=== PATIENT | female | born 1945 | race Caucasian/White ===

== ENCOUNTER 2022-05-31 13:28 | Inpatient (IN) | payer MEDICARE, SELFPAY ==
[2022-05-31] VITALS (32 sets, daily range): BP systolic 107–152; BP diastolic 69–107; PULSE 88–116; RESP 16–18; TEMP 36.5–37.1; O2SAT 94–98; BMI 19.5
--- NOTE | 2022-05-31 14:09 | ED_ITS ---
HPI - Weakness General Chief complaint: Weakness Stated complaint: Weak Diarrhea Time Seen by Provider: 05/31/22 13:55 History of Present Illness HPI Narrative: 76-year-old woman presenting to the emergency department with her son with whom she lives with complaint of increasing weakness. ?I just feel awful?. Has had some head cold symptoms than some cough and ultimately diarrhea 2 nights ago which admittedly has lessened today. She continues to have nausea. They tried Robitussin with the cough. She is keeping electrolyte drinks and water. Just can not eat anything solid and for that reason feels his increasingly weak. Not exactly short of breath. No fever measured. Abdominal pain other than and cramping in anticipation of a bowel movement. No recent antibiotics. Later does report a history hypokalemia when queried. Apparently had been on supplementation in the past and ended up hyperkalemic. Related Data Home Medications Medication Instructions Recorded Confirmed ferrous sulfate 142 mg (45 mg 142 mg PO Q48H 05/31/22 05/31/22 iron) tablet,extended release (Slow Fe) gabapentin 400 mg capsule See Rx Instructions .Route 05/31/22 05/31/22 .COMPLEX PRN restless leg(s) omeprazole 20 mg capsule,delayed 20 mg PO DAILY 05/31/22 05/31/22 release sertraline 100 mg tablet 100 mg PO DAILY 05/31/22 05/31/22 tramadol 50 mg tablet 50 mg PO Q8H 05/31/22 05/31/22 Allergies Allergy/AdvReac Type Severity Reaction Status Date / Time No Known Drug Allergies Allergy Verified 05/31/22 13:48 Review of Systems Status of ROS: Reports: 10 or more systems reviewed and unremarkable except as noted in History and below [facility] Medical History (Updated 06/01/22 @ 10:20 by Rafael Crouch MD) Chronic back pain Controlled substance agreement signed Gastric ulcer Generalized anxiety disorder Iron deficiency anemia Nephrolithiasis Restless leg syndrome Surgical History (Updated 05/31/22 @ 21:41 by Chio Joseph MD) S/P [id number] Family History (Updated 05/31/22 @ 21:45 by Chio Joseph MD) Mother Cataract Osteoarthritis PUD (peptic ulcer disease) Brother No problems noted. Brother High cholesterol High blood pressure Retinal detachment Sister AAA (abdominal aortic aneurysm) Renal failure Family/Other Myocardial infarction Social History (Updated 05/31/22 @ 22:37 by Chio Joseph MD) Narrative: Quit smoking 1 year ago. Smoked 1/2-1ppd. Denies alcohol or recreational drugs. FULL CODE. Smoking Status: Former smoker Nicotine containing products detail: quit 1 year ago 2020 Second hand tobacco smoke exposure: No How often do you have a drink containing alcohol: never AUDIT-C Alcohol total score: 0 Non-prescribed substance use: denies use Caffeine: No Exam Narrative: Exam Narrative: Pleasant. A little hard of hearing. Thin. Partially edentulous. Oropharynx is moist. Does have a nicotine gum in place. Lungs actually are clear. Cardiovascular is elevated rate regular rhythm. Distant. Abdomen is soft normoactive bowel sounds and nontender no masses appreciated. No lower extremity edema. Skin with good turgor. No rash is noted. Well-perfused peripherally. Moving extremities without difficulty. Const: Vital Signs, click to edit/add: Vital Signs - 24 hr 05/31/22 15:44 05/31/22 15:45 05/31/22 16:00 Pulse Rate 91 92 88 Respiratory Rate Blood Pressure Pulse Oximetry 95 96 97 Oxygen Delivery Me thod 05/31/22 16:01 05/31/22 16:02 05/31/22 16:15 Pulse Rate 88 91 96 Respiratory Rate Blood Pressure 144/85 H Pulse Oximetry 97 96 97 Oxygen Delivery Me thod 05/31/22 16:30 05/31/22 16:31 05/31/22 16:46 Pulse Rate 96 96 102 H Respiratory Rate Blood Pressure 148/96 H 152/107 H Pulse Oximetry 98 98 95 Oxygen Delivery Me thod 05/31/22 16:47 05/31/22 17:00 05/31/22 17:01 Pulse Rate 98 107 H 103 H Respiratory Rate Blood Pressure 148/95 H Pulse Oximetry 96 97 97 Oxygen Delivery Me thod 05/31/22 17:15 05/31/22 17:30 05/31/22 17:31 Pulse Rate 98 96 98 Respiratory Rate Blood Pressure 118/78 Pulse Oximetry 96 98 97 Oxygen Delivery Me thod 05/31/22 17:45 05/31/22 18:03 05/31/22 18:04 Pulse Rate 103 H 97 106 H Respiratory Rate Blood Pressure 143/94 H Pulse Oximetry 97 96 96 Oxygen Delivery Me thod 05/31/22 18:15 05/31/22 18:30 05/31/22 18:31 Pulse Rate 110 H 115 H 108 H Respiratory Rate Blood Pressure 107/69 Pulse Oximetry 96 96 96 Oxygen Delivery Me thod 05/31/22 18:45 05/31/22 19:00 05/31/22 19:01 Pulse Rate 116 H 106 H 103 H Respiratory Rate Blood Pressure 131/84 Pulse Oximetry 95 96 96 Oxygen Delivery Me thod 05/31/22 19:15 05/31/22 19:30 05/31/22 19:31 Pulse Rate 115 H 98 97 Respiratory Rate Blood Pressure 137/87 Pulse Oximetry 94 96 95 Oxygen Delivery Me thod 05/31/22 20:19 05/31/22 20:30 Pulse Rate Respiratory Rate 18 Blood Pressure Pulse Oximetry 98 98 Oxygen Delivery Me thod Room Air Room Air Documenting provider has reviewed patient's vital signs: yes Course Vital Signs Vital signs: Initial Vital Signs Temperature 97.7 F 05/31/22 13:42 Temperature Source Temporal Artery Scan 05/31/22 13:42 Pulse Rate 116 H 05/31/22 13:42 Pulse Rhythm 05/31/22 13:42 Respiratory Rate 16 05/31/22 13:42 Blood Pressure 114/70 05/31/22 13:42 Blood Pressure Mean 84 05/31/22 13:42 Blood Pressure Position Sitting 05/31/22 13:42 Pulse Oximetry 96 05/31/22 13:42 Oxygen Delivery Method 05/31/22 13:42 Vital Signs Temperature 97.7 F 05/31/22 13:42 Pulse Rate 116 H 05/31/22 13:42 Respiratory Rate 16 05/31/22 13:42 Blood Pressure 114/70 05/31/22 13:42 Pulse Oximetry 96 05/31/22 13:42 Oxygen Delivery Method 05/31/22 13:42 Temperature 98.0 F 06/01/22 11:00 Pulse Rate 70 06/01/22 11:00 Respiratory Rate 20 06/01/22 11:00 Blood Pressure 125/78 06/01/22 11:00 Pulse Oximetry 95 06/01/22 11:00 Oxygen Delivery Method 06/01/22 11:00 MDM - Weakness MDM Narrative Medical decision making narrative: Will place IV. Normal saline. Labs pending particular interest would be Covid and influenza given community prevalence. Alejandrafran. Was feeling a little bit better. Has had runs of tachycardia looks up into the 160s. By my read prior EKG showing normal sinus at 90. This is when sat up to take oral potassium as potassium was 2.9. Still reporting feeling generally unwell. Magnesium at 1.9. There are runs now of tachycardia that a captured on EKG looks to show by my read a sinus tachycardia in 2 EKGs 1-teens to 150s. These are transient and resolve spontaneously. COVID positive. Replaced potassium orally. Able to hold this down. Given 2 g magnesium IV as well in light of SVT. Inquired about vaccinations status for COVID and influenza. Son and patient noted that people are dying of COVID vaccines; that vaccinated people are the ones who are dying. Has had a couple episodes of diarrhea here in the emergency department. Oxygenation maintained mid to upper 90s. Did report feeling little bit better but when queried regarding departing home was quite reluctant concerned anxious preferring to stay here. Does have family help in the form of her son. We discussed this at a number of times and still wants to stay here. Hospitalist is accepting. Lab Data Attestation: I reviewed the patient's lab results. Labs: Lab Results 05/31/22 05/31/22 05/31/22 Range/Units 13:58 14:55 14:55 WBC 9.20 (4.50-11.00) K/uL RBC 4.50 (4.00-5.20) m/uL Hgb 12.7 (12.0-16.0) gm/dL Hct 39.8 (33.0-51.0) % MCV 88 (80-100) fL MCH 28 (26-34) pg MCHC 32 (32-36) gm/dL RDW Coeff of William 13.4 (11.5-15.5) % Plt Count 268 (140-440) K/uL Neut % (Auto) 78.8 H (42.0-72.0) % Lymph % (Auto) 12.7 L (20-44) % [place] % (Auto) 7.3 (0.0-11.0) % Eos % (Auto) 0.1 (0.0-7.0) % Baso % (Auto) 0.2 (0.0-3.0) % Neut # (Auto) 7.20 H (1.7-7.0) K/uL Lymph # (Auto) 1.20 (0.90-2.90) K/uL [place] # (Auto) 0.70 (0.00-0.90) K/UL Eos # (Auto) 0.01 (0.00-0.50) K/uL Baso # (Auto) 0.02 (0.00-0.30) K/uL Abs Immat Gran (auto) 0.08 (0.00-0.30) K/uL Imm/Tot Granulo (auto) 0.9 % Sodium 141 (135-149) mmol/L Potassium 2.9 L* (3.6-5.1) mmol/L Chloride 109 (96-114) mmol/L Carbon Dioxide 21 (20-32) mmol/L BUN 13 (7-30) mg/dL Creatinine 0.9 (0.5-1.5) mg/dL Estimated Creat Clear 38.29 Estimated GFR 67 ml/min Glucose 110 (60-115) mg/dL Calcium 9.4 (8.4-10.6) mg/dL Magnesium (1.5-2.6) mg/dL Total Bilirubin 0.4 (0.1-1.5) mg/dL Direct Bilirubin 0.3 (0.0-0.5) mg/dL AST 152 H (12-35) U/L ALT 46 H (4-35) U/L Alkaline Phosphatase 132 (40-150) U/L C-Reactive Protein 4.7 H (0.5-1.0) mg/dL NT-Pro-B Natriuret Pep 1010 H (0-450) PG/mL Total Protein 7.3 (6.0-8.3) g/dL Albumin 4.2 (3.3-5.0) g/dL Urine Color (Yellow) Urine Appearance (Clear) Urine pH (5.0-8.5) Ur Specific [place] (1.000-1.030) Urine Protein (Negative) Urine Glucose (UA) (Negative) Urine Ketones (Negative) Urine Blood (Negative) Urine Nitrite (Negative) Urine Bilirubin (Negative) Urine Urobilinogen (0.2-1.0) Ur Leukocyte Esterase (Negative) Urine RBC (0-2) Urine WBC (0-5) Ur Squamous Epith Cells (None-Few) Urine Bacteria (None) SARS-CoV-2 (PCR) POSITIVE SARS-CoV-2 A (Negative) Influenza Type A (PCR) Negative PCR FLU A (Negative) Influenza Type B (PCR) Negative PCR FLU B (Negative) RSV (PCR) Negative PCR RSV (Negative) 05/31/22 05/31/22 Range/Units 14:55 15:54 WBC (4.50-11.00) K/uL RBC (4.00-5.20) m/uL Hgb (12.0-16.0) gm/dL Hct (33.0-51.0) % MCV (80-100) fL MCH (26-34) pg MCHC (32-36) gm/dL RDW Coeff of William (11.5-15.5) % Plt Count (140-440) K/uL Neut % (Auto) (42.0-72.0) % Lymph % (Auto) (20-44) % [place] % (Auto) (0.0-11.0) % Eos % (Auto) (0.0-7.0) % Baso % (Auto) (0.0-3.0) % Neut # (Auto) (1.7-7.0) K/uL Lymph # (Auto) (0.90-2.90) K/uL [place] # (Auto) (0.00-0.90) K/UL Eos # (Auto) (0.00-0.50) K/uL Baso # (Auto) (0.00-0.30) K/uL Abs Immat Gran (auto) (0.00-0.30) K/uL Imm/Tot Granulo (auto) % Sodium (135-149) mmol/L Potassium (3.6-5.1) mmol/L Chloride (96-114) mmol/L Carbon Dioxide (20-32) mmol/L BUN (7-30) mg/dL Creatinine (0.5-1.5) mg/dL Estimated Creat Clear Estimated GFR ml/min Glucose (60-115) mg/dL Calcium (8.4-10.6) mg/dL Magnesium 1.9 (1.5-2.6) mg/dL Total Bilirubin (0.1-1.5) mg/dL Direct Bilirubin (0.0-0.5) mg/dL AST (12-35) U/L ALT (4-35) U/L Alkaline Phosphatase (40-150) U/L C-Reactive Protein (0.5-1.0) mg/dL NT-Pro-B Natriuret Pep (0-450) PG/mL Total Protein (6.0-8.3) g/dL Albumin (3.3-5.0) g/dL Urine Color Yellow (Yellow) Urine Appearance Clear (Clear) Urine pH 5.5 (5.0-8.5) Ur Specific [place] 1.010 (1.000-1.030) Urine Protein Negative (Negative) Urine Glucose (UA) Negative (Negative) Urine Ketones Negative (Negative) Urine Blood 2+ A (Negative) Urine Nitrite Positive A (Negative) Urine Bilirubin Negative (Negative) Urine Urobilinogen 0.2 (0.2-1.0) Ur Leukocyte Esterase Negative (Negative) Urine RBC 0-2 (0-2) Urine WBC 0-2 (0-5) Ur Squamous Epith Cells None (None-Few) Urine Bacteria Moderate A (None) SARS-CoV-2 (PCR) (Negative) Influenza Type A (PCR) (Negative) Influenza Type B (PCR) (Negative) RSV (PCR) (Negative) Discharge Plan Discharge Clinical Impression: COVID-19, Weakness, Acute hypokalemia Patient Disposition: Admitted As Inpatient
--- OUTSIDE RECORDS SUMMARY | 2022-05-31 14:41 | XMS_ITS | Clinical Summary ---
:1945 [facility] Address [address] [place] [address] Care Team Providers Name Role Phone Shiraz Simeon PA-C Primary Care Provider Source Comments You are receiving this document as you are listed as the primary care provider,follow-up provider, or the patient has been referred to you for consultation.This is in compliance with the Medicare and Medicaid EHR Incentive Program,which states Providers who transition their patient to another setting of careor provider of care or refers their patient to another provider of care shouldprovide summarycare record for each transition of care or referral. [place]ste[place] Allergies Active Allergy Reactions Severity Noted Date Comments Ferrous Sulfate Nausea 01/04/2012 Medications Medication Sig Dispensed Refills Start End Date Status Date ferrous sulfate Take 1 Tablet 30 Tablet 3 Active (SLOFE) 142 (45 Fe) by mouth 1 MG TBCR every other day. ondansetron Take 1 Tablet 20 Tablet 0 Acti ve (ZOFRAN-ODT) 4 MG by mouth 1 disintegrating every 8 hours tablet as needed for Nausea. sertraline (ZOLOFT) Take 1 Tablet 90 Tablet 3 Active 100 MG (100 mg) by 2 tabletIndications: mouth daily. Generalized anxiety disorder (HRC) gabapentin TAKE 4 TO 5 450 Capsule 3 Activ e (NEURONTIN) 400 MG CAPSULES AT 2 capsuleIndications: BEDTIME Restless legs syndrome (RLS) omeprazole Take 1 180 Capsule 3 Active (PRILOSEC) 20 MG Capsule (20 2 capsuleIndications: mg) by mouth History of gastric two times a ulcer day before meals. Take 1 hour before a meal. traMADol (ULTRAM) Take 1 Tablet 90 Tablet 0 Active 50 MG (50 mg) by 2 tabletIndications: mouth every 8 Chronic right-sided hours as low back pain with needed for right-sided Pain. sciatica (HRC) traMADol (ULTRAM) TAKE 1 90 Tablet 0 05/28/20 Di scontinued 50 MG TABLET(50 MG) 2 22 (*Med change OR tabletIndications: BY MOUTH s guilherme med OR Chronic right-sided EVERY 8 HOURS reorder, new low back pain with NEEDED FOR dose/directions) right-sided PAIN sciatica (HRC) Active Problems Problem Noted Date Controlled substance agreement signed 04/29/2019 Overview: Diagnosis: Chronic Low back pain without sciatica Medication: Tramadol 50 mg, 1 tab BID Controlled Substance Agreement reviewed and signed: yes Date agreement signed: 04/29/2019 Refill plan: She may get #60 every 30 da ys. Medication check annually. Clinician: Shiraz Simeon PA-C History of gastric ulcer 01/31/2012 Chronic back pain 11/16/2011 Last Assessment & Plan: Formatting of is note might be different from the original. Doing well without being able to take NS AIDs for her back pain. Continues gabapentin on a daily basis, and tramadol a couple times a day to 3 times a day as needed for more acute discomfort. No increase in her back symptoms. Denies any radiat ing pain into lower extremities or groin, denies paresthesias, and denies weakness in her lower extremities. No adverse effects from her medications. Iron deficiency anemia 11/16/2011 Last Assessment & Plan: Formatting of is note might be different from the original. Despite feeling like her gastric ulcer h as healed, her hemoglobin and ferritin levels have not come up into normal range again. She has had several iron infusions, most recent late fall 2011. She is due to see her maltster, and would like her labs done today in anticipation of that visit. She feels great, without shortness of breath, dyspnea on exertion, fatigue, headaches, or chest pain. Generalized anxiety disorder 11/02/2011 Last Assessment & Plan: Formatting of is note might be different from the original. LILI-7 score of 2. Tolerating her SSRI ve ry well, and would like to continue it. She is active, engaged, motivated to do things, and sleeping well. Restless legs syndrome (RLS) 11/02/2011 Last Assessment & Plan: Formatting of is note might be different from the original. Has increased to 200 mg gabapentin twice daily to prevent RLS symptoms in the evening and overnight. Feels that this dosage is appropriate, no adverse effects, would like a new prescription reflecting t he change. Discussed that as her hemoglo bin and ferritin levels improve, it is very likely that her RLS symptoms will improve, as well. Resolved Problems Problem Noted Date Resolved Date NSAID-induced gastric ulcer 11/16/2011 01/27/2015 Last Assessment & Plan: Formatting of is note might be different from the original. Reports that she has no abdominal pain, no chest pain, no tarry or black stools, no anorexia, no nausea, no vomiting, and no continued weight loss. Her appetite has been great, she tells me she has been eating like a piggy. She has complete ly stopped NSAIDs as per the advice of Dr. Clemente last fall after her latest endoscopy and biopsies. She does not smoke. At this stage, sill taking her PPI daily, and having no troubles with that. Plans to continue, needs prescription renewal. No current questions or concerns. Encounters Date Type Specialty Care Team Description 05/28/2022 Refill [facility] Shiraz Simeon PA-C Refil l (traMADol (ULTRAM) 50 MG tablet) [facility] (traMADol (ULTRAM) 50 MG tablet [P harmacy Med Name: TRAMADOL 50MG TABLETS]) 03/14/2022 Telemedicine [facility] Shiraz Simeon PA-C Encou nter for Medicare annual wellness exam (Primary Dx); Iron deficiency anemia, unspecified iron deficiency anemia type; Generalized anx iety disorder; Restless legs s yndrome (RLS); History of kayley jerald ulcer; Chronic right-s ided low back pain with right-sided sciatica; Screening for c olon cancer; Screening susana sterol level; Diabetes mellit us screening from Last 3 Months Immunizations Name Administration Dates Next Due DT Ped 01/25/1989 Flu Vac Preserv Free (3+yrs) 04/04/2012 Influenza (Flucelvax), Preserv Free 07/11/2013 Influenza IIV3 (Trivalent) Fluzone 06/22/2020, 04/29/2019, 1 , Highdose, 65+ Yrs (26774) 04/19/2017, 04/08/2015 Influenza IIV4 (Quadrivalent) 0.5mL 07/25/2016 (13863) Influenza, Unspecified Formulation 04/16/1997 PCV13 (Prevnar) 01/27/2015 PPSV23 (Pneumovax) 10/30/2012 TDAP (BOOSTRIX) 10/30/2012 Zoster (Zostavax) 01/27/2015 Zoster RZV (Shingrix) 04/29/2019 Family History Medical History Relation Name Comments Cataract Mother Osteoarthritis Mother PUD Mother High Cholesterol Brother 2 Jose Alejandro Hypertension Brother 2 Jose Alejandro Retinal Detachment Brother 2 Jose Alejandro Abdominal Aortic Aneurysm Sister 2 Yady non-sm oker, normotensive Renal Failure Sister 2 Yady Amblyopia/Strabismus Negative Family History Diabetes Negative Family History Glaucoma Negative Family History Macular Degeneration Negative Family History Relation Name Status Comments Father (Age 51) Heart attack, sudden Mother (Age 94) in Sleep Brother 1 Alive Brother 2 Jose Alejandro Sister 1 (Age 51) complications after AAA Sister 2 Yady Social History Tobacco Use Types Packs/Day Years Used Date Smoking Tobacco: Every Day Cigarettes 0.3 Smokeless Tobacco: Never Alcohol Use Standard Drinks/Week Comments No 0 (1 standard drink = 0.6 oz pure alcoho l) Sex Assigned at Date Recorded Not on file Last Filed Vital Signs Vital Sign Reading Time Taken Comments Blood Pressure 100/62 06/01/2021 12:28 PM UTILITY SYSTEM REPAIRER Pulse 124 06/01/2021 12:28 PM UTILITY SYSTEM REPAIRER Temperature 36.6 ??C (97.8 ??F) 06/01/2021 12:28 PM UTILITY SYSTEM REPAIRER Respiratory Rate 20 06/01/2021 12:28 PM UTILITY SYSTEM REPAIRER Oxygen Saturation 97% 06/01/2021 12:28 PM UTILITY SYSTEM REPAIRER Inhaled Oxygen Concentration - - Weight 47.6 kg (105 lb) 04/04/2021 8:28 AM CDT PER PT Height 160 cm (5' 3) 04/04/2021 8:28 AM CDT PER PT Body Mass Index 18.6 04/04/2021 8:28 AM CDT Plan of Treatment Health Maintenance Due Date Last Done Comments COVID-19 Vaccine (#1) 04/01/1946 Dexa 10/01/2011 Mammogram 03/16/2013 03/16/2012 (Completed) Zoster/Shingles (3 of 3) 06/24/2019 04/29/2019, 01/27/2015 Colonoscopy 11/07/2021 11/08/2011 (Completed) Influenza (#1) 2022 06/22/2020, 04/29/2019, 04/17/2018, Additional history exists DTaP/Tdap/Td (3 - Tdap) 10/30/2022 10/30/2012, 10/30/2012, 01/25/1989 Medicare Annual Wellness 03/14/2023 03/14/2022, 04/17/2018 Visit Pneumococcal 65+ Yrs Completed 01/27/2015, 10/30/2012, 10/30/2012 Hep C Screening (Preventive Completed 04/17/2018 Services) HepA Aged Out No longer eligib le based on patient 's age to complete this topic HepB Aged Out No longer eligib le based on patient 's age to complete this topic Hib Aged Out No longer eligib le based on patient 's age to complete this topic IPV (Polio) Aged Out No longer eligib le based on patient 's age to complete this topic MCV4 Aged Out No longer eligib le based on patient 's age to complete this topic Insurance Payer Benefit Plan / Subscriber ID Effective Dates Phone Addre ss Type Group BCBS BCBS MEDICARE [id number] 2021-Present [phone] Medicare ADVANTAGE Shruti Corbin Personal/Famil Self 1945 [id number]) [phone] [place] (Work) [id number] Shruti Corbin Personal/Famil Self 1945 [phone] ([address]) [address] [phone] [place] (Work) [id number] Care Teams Freight Service Inspector Relationship Specialty Start Date End Date Shiraz Simeon PA-C PCP - General 03/02/[address] [place] [id number]
--- OUTSIDE RECORDS SUMMARY | 2022-05-31 14:41 | XMS_ITS | Encounter Summary ---
:1945 Author Organization [employer] Address [address] [place] [address] Care Team Providers Name Role Phone Shiraz Simeon PA-C Primary Care Provider Reason for Visit Reason Onset Date Comments Refill 05/28/2022 traMADol (ULTRAM) 50 MG tablet Encounter Details Date Type Department Care Team Description 05/28/2022 Refill [facility] Shiraz Simeon PA-C Refill (traMADol [address] (ULTRAM) 50 MG tablet) [place] [address] [place] [address] [phone] (Wo rk) Social History Tobacco Use Types Packs/Day Years Used Date Smoking Tobacco: Every Day Cigarettes 0.3 Smokeless Tobacco: Never Alcohol Use Standard Drinks/Week Comments No 0 (1 standard drink = 0.6 oz pure alcoho l) Sex Assigned at Date Recorded Not on file documented as of this encounter Nursing Notes Interface, Out Surescripts Prov Query - 05/28/2022 8:53 AM CST traMADol (ULTRAM) 50 MG tablet Medication started: 07/25/2016 Last ordered by SHIRAZ SIMEON: 04/27/2022 (31 days ago) QTY: 90, Refills: 0, Sig: take 1 tablet(50 mg) by mouth every 8 hours as needed for pain (changed but equivalent) -> Medication cannot be delegated. Last qualifying visit: 03/14/2022 (with SHIRAZ SIMEON) Next scheduled visit: None [employer] Embedded Refills, Reference: [id number], 05/28/2022 8:53:22 AM BIT AND SHANK DEPARTMENT SUPERVISOR, Pool: ARIANNE REFILL ([id number]) Electronically signed by Interface, Out [facility] Prov Query at 05/29/2022 6:43 PM BIT AND SHANK DEPARTMENT SUPERVISOR Interface, Out [facility] Prov Query - 05/28/2022 8:53 AM CST No Careplan note found by Mixers. Electronically signed by Interface, Out [facility] Prov Query at 05/29/2022 6:43 PM BIT AND SHANK DEPARTMENT SUPERVISOR documented in this encounter Plan of Treatment Not on filedocumented as of this encounter Visit Diagnoses Diagnosis Chronic right-sided low back pain with r ight-sided sciatica documented in this encounter Care Teams Mattress Specialist Relationship Specialty Start Date End Date Shiraz Simeon, PAMisbahC PCP - General 03/02/16 [address] [place], [place] [id number] documented as of this encounter
--- OUTSIDE RECORDS SUMMARY | 2022-05-31 14:42 | XMS_ITS | Encounter Summary ---
:1945 Author Organization [facility] Address [address] [place] [address] Care Team Providers Name Role Phone Shiraz Simeon PA-C Primary Care Provider Reason for Visit Procedure/Equipment (Routine) - Incomplete Specialty Diagnoses / Procedures Referred By Contact Refer red To Contact Diagnoses Cough Rahul Hdez PA-C Procedures XR Chest 2 Views [address] [place] [address] Referral ID Status Reason Start Date Expiration Date Visits V isits Requested Authorized [id number] Incomplete 06/01/2021 08/31/2022 1 1 Encounter Details Date Type Department Care Team Description 06/01/2021 Ancillary Procedure Brigette Bro S S, Cough [address] Radiology PA-C [address] [facility] [address] [facility] [place] [address] [phone] Social History Tobacco Use Types Packs/Day Years Used Date Smoking Tobacco: Every Day Cigarettes 0.3 Smokeless Tobacco: Never Alcohol Use Standard Drinks/Week Comments No 0 (1 standard drink = 0.6 oz pure alcoho l) Sex Assigned at Date Recorded Not on file documented as of this encounter Plan of Treatment Not on filedocumented as of this encounter Procedures Procedure Name Priority Date/Time Associated Diagnosis Comme nts XR CHEST 2 VIEWS STAT 06/01/2021 1:09 PM Cough Resul ts for this [facility] procedure are i n the results section. documented in this encounter Results XR Chest 2 Views (06/01/2021 1:09 PM [facility]) Anatomical Region Laterality Modality Chest, Lung Digital Radiography Specimen (Source) Anatomical Collection Method Collection Time Re ceived Time Location / / Volume Laterality 06/01/2021 12:57 PM [facility] Impressions 06/01/2021 1:12 PM [facility] COMPARISON: ??None. FINDINGS: ??Two views were obtained. ??T he lungs and costophrenic angles are clear. ??Heart size and pulmonary vascularity are within normal limits. ??There is no evidence of pneumothorax or pleural effusion. Bony thorax is unremarkable. Impression: Normal. Procedure Note Tyler Livingston MD - 06/01/2021Forma tting of this note might be different from the original. IMPRESSION COMPARISON: None. FINDINGS: Two views were obtained. The l ungs and costophrenic angles are clear. Heart size and pulmonary vascularity are within normal limits. There is no evidence of pneumothorax or pleural effusion. Bony thorax is unremarkable. Impression: Normal. Rahul Hdez PA-C RAD GD documented in this encounter Visit Diagnoses Diagnosis Cough documented in this encounter Additional Health Concerns Infection Onset Date Last Indicated Resolved Time R/O COVID19 06/01/2021 06/01/2021 06/02/2021 6:24 PM [facility] documented as of this encounter Care Teams Research Soil Scientist Relationship Specialty Start Date End Date Shiraz Simeon PA-C PCP - General 03/02/16 [address] [place] [address] documented as of this encounter
--- OUTSIDE RECORDS SUMMARY | 2022-05-31 14:42 | XMS_ITS | Encounter Summary ---
:1945 Author Organization [employer] Address [address] [place] [address] Care Team Providers Name Role Phone Shiraz Simeon PA-C Primary Care Provider Reason for Visit Reason Comments Refill gabapentin (NEURONTIN) 400 M G capsule [Pharmacy Med Name: GABAPENTIN 400MG CAPSULES] Encounter Details Date Type Department Care Team Description 01/09/2022 [facility]ill [facility] Refill (gabapentin [address] (NEURONTIN) [address] [place] [address] [place] [address] capsule [Pharmacy Med [phone] (Wo rk) Name: GABAPENTIN 400MG CAPSULES] ) Social History Tobacco Use Types Packs/Day Years Used Date Smoking Tobacco: Every Day Cigarettes 0.3 Smokeless Tobacco: Never Alcohol Use Standard Drinks/Week Comments No 0 (1 standard drink = 0.6 oz pure alcoho l) Sex Assigned at Date Recorded Not on file documented as of this encounter Nursing Notes Kate Villalpando MD - 01/11/2022 9:58 AM CDT Rx sent on behalf of Shiraz Simeon. Interface, Out [employer] Prov Query - 01/09/2022 12:19 PM CDT gabapentin (NEURONTIN) 400 MG capsule [Pharmacy Med Name: GABAPENTIN 400MG CAPSULES] Medication started: 03/09/2016 Last ordered by SHIRAZ SIMEON: 04/06/2021 (278 days ago) QTY: 450, Refills: 3, Sig: take 4-5 tabs atbedtime (changed) -> Unable to determine if sig has changed, review required. -> Medication cannot be delegated. Last qualifying visit: 04/05/2021 (with SHIRAZ SIMEON) Next scheduled visit: None [employer] Emb[employer]ded Refills, Reference: [id number], 01/09/2022 12:19:07 PM CDT, Pool: ARIANNE REFILL ([id number]) documented in this encounter Plan of Treatment Not on filedocumented as of this encounter Visit Diagnoses Diagnosis Restless legs syndrome (RLS) documented in this encounter Care Teams Waiter And Cashier Relationship Specialty Start Date End Date Shiraz Simeon PA-C PCP - General 03/02/16 [address] [place] [address] documented as of this encounter
--- OUTSIDE RECORDS SUMMARY | 2022-05-31 14:42 | XMS_ITS | Encounter Summary ---
:1945 Author Organization [employer] Address [address] [place] [address] Care Team Providers Name Role Phone Shiraz Simeon PA-C Primary Care Provider Reason for Visit Reason Onset Date Comments Phone Visit 01/21/2020 Encounter Details Date Type Department Care Team Description 01/16/2020 Telemedicine [facility] Shiraz Simeon Chronic right-sided Medicine KENISHA low back pain with [address] [address] [place] [address] [place] [address] [place] [address] (Primary Dx) [phone] Social History Tobacco Use Types Packs/Day Years Used Date Smoking Tobacco: Every Day Cigarettes 0.3 Smokeless Tobacco: Never Alcohol Use Standard Drinks/Week Comments No 0 (1 standard drink = 0.6 oz pure alcoho l) Sex Assigned at Date Recorded Not on file documented as of this encounter Progress Notes Shiraz Simeon PA-C - 01/16/2020 2:40 PM CDT Subjective: Today's visit with Shruti Corbin was conducted as a scheduled telephone visit. She has always had chronic right low back pain. Lately she has been having more radiation of the pain down her right leg. This has happened once before and she was treated for sciatica at that time. Occasionally the pain will radiate down to her foot, but for the most part it is down the leg to about the knee. No weakness in the leg. No numbness or tingling. No injury that she can recall. She is taking both acetaminophen and ibuprofen for discomfort. She has been trying to do stretches as well. Objective: Health Maintenance Due Topic Date Due ??? Advanced Directive 10/01/2011 ??? Dexa 10/01/2011 ??? Mammogram 03/16/2013 ??? Zoster (3 of 3) 06/24/2019 ??? Medicare Annual Wellness Visit 07/02/2019 BP Readings from Last 1 Encounters: 06/05/19 104/68 Assessment/Plan: Chronic right-sided low back pain with right-sided sciatica - traMADol (ULTRAM) 50 MG tablet; Take 1 Tablet by mouth every 8 hours as needed for Pain. - Medrol Dosepack; Take as directed After discussion, she is agreeable to a trial of Medrol Dosepak. Discussed the purpose of the medication, how to take, potential benefits, and potential adverse effects. Recommend ice alternating with heat, and gentle stretches. If symptoms do not improve, and especially if symptoms continue to radiate below the knee more consistently, would recommend MRI. If symptoms do not radiate below the knee, then might recommend physical therapy initially. She will call as needed for continued symptoms. Billing based on: Time 16 minutes spent on the phone with the patient, with greater than 50% in counseling and coordinationof care. Shiraz Simeon PA-C Answers for HPI/ROS submitted by the patient on 01/16/2020 How often do you exercise?: 1-2 times per week, 30 min or more documented in this encounter Plan of Treatment Not on filedocumented as of this encounter Visit Diagnoses Diagnosis Chronic right-sided low back pain with r ight-sided sciatica - Primary documented in this encounter Care Teams Pot Puller Relationship Specialty Start Date End Date Shiraz Simeon PA-C PCP - General 03/02/[address] [place] [address] documented as of this encounter
--- OUTSIDE RECORDS SUMMARY | 2022-05-31 14:42 | XMS_ITS | Encounter Summary ---
:1945 Author Organization [employer] Address [address] [place] [address] Care Team Providers Name Role Phone Shiraz Simeon PA-C Primary Care Provider Reason for Visit Reason Onset Date Comments Refill 05/26/2020 traMADol (ULTRAM) 50 MG tablet Encounter Details Date Type Department Care Team Description 05/26/2020 Refill [facility] Medicin e Shiraz Simeon PA-C Refill (traMADol [address] (ULTRAM) 50 MG tablet) [place] [address] [place] [address] [phone] (Wo rk) Social History Tobacco Use Types Packs/Day Years Used Date Smoking Tobacco: Every Day Cigarettes 0.3 Smokeless Tobacco: Never Alcohol Use Standard Drinks/Week Comments No 0 (1 standard drink = 0.6 oz pure alcoho l) Sex Assigned at Date Recorded Not on file documented as of this encounter Nursing Notes Shiraz Simeon PA-C - 05/26/2020 7:24 PM CST faxed 'S PILOT Interface, Out Surescripts Prov Query - 05/26/2020 2:56 PM CST traMADol (ULTRAM) 50 MG tablet Medication started: 01/27/2015 Last ordered by SHIRAZ SIMEON: 01/16/2020 (131 days ago) QTY: 90, Refills: 0, Sig: take 1 tablet by mouth every 8 hours as needed for pain. (unchanged) -> Medication cannot be delegated. Last qualifying visit: 01/16/2020 (with SHIRAZ SIMEON) Next scheduled visit: None [employer], Reference: [id number], 05/26/2020 2:56:29 PM SHIP'S PILOT, Pool: ARIANNE REFILL ([id number]) 'S PILOT Interface, Out [employer] Prov Query - 05/26/2020 2:56 PM CST No Careplan note found by [employer]. 'S PILOT documented in this encounter Plan of Treatment Not on filedocumented as of this encounter Visit Diagnoses Diagnosis Chronic right-sided low back pain with r ight-sided sciatica documented in this encounter Care Teams Labview Programmer Relationship Specialty Start Date End Date Shiraz Simeon, PAMisbahC PCP - General 03/02/16 [address] [place], [place] [address] documented as of this encounter
--- OUTSIDE RECORDS SUMMARY | 2022-05-31 14:42 | XMS_ITS | Encounter Summary ---
:1945 Author Organization [employer] Address [address] [place] [address] Care Team Providers Name Role Phone Shiraz Simeon PA-C Primary Care Provider Reason for Referral (Routine) - New Request Specialty Diagnoses / Procedures Referred By Contact Refer red To Contact Diagnoses Screening for colon cancer Shiraz Simeon PA-C Procedures Endoscopy, Colon, Screening/Diagnostic [address] [place] [address] Referral ID Status Reason Start Date Expiration Date Visits V isits Requested Authorized [id number] New Request 03/14/2022 03/14/2024 1 1 Reason for Visit Reason Onset Date Comments Preventative Health Exam Video Visit Video Visit 03/14/2022 Encounter Details Date Type Department Care Team Description 03/14/2022 Telemedicine [facility] Shiraz Simeon, Encounter for Medicare annua l wellness exam (Primary Dx); [address] PA-C Iron deficiency anemia, unspecified iron deficiency anemia type; [place] [address] [address] Generalized anxiety disorder; [phone] [place] [address] Restless legs syndrome (RLS); [phone] History of kayley jerald ulcer; (Work) Chronic right-sided low back pain with r ight-sided sciatica; [phone] Screening for c olon cancer; (Fax) Screening susana sterol level; Diabetes mellit us screening Social History Tobacco Use Types Packs/Day Years Used Date Smoking Tobacco: Every Day Cigarettes 0.3 Smokeless Tobacco: Never Alcohol Use Standard Drinks/Week Comments No 0 (1 standard drink = 0.6 oz pure alcoho l) Sex Assigned at Date Recorded Not on file documented as of this encounter Patient Instructions Patient InstructionsShShiraz anand PA-C - 03/14/2022 10:40 AM CDT Annual Wellness Visit Summary Your care team is recommending the following tests, procedures or services. Some of these recommendations may not be fully covered by Medicare or your insurance. If you have questions, check with your insurance to determine coverage before completing these services. Health Maintenance Due Health Maintenance Due Topic Date Due ??? COVID-19 Vaccine (1) Never done ??? Dexa Never done ??? Mammogram 03/16/2013 ??? Zoster/Shingles (3 of 3) 06/24/2019 ??? Colonoscopy 11/07/2021 ??? Influenza (1) 03/02/2022 If your Medicare Welcome or Annual Wellness Visit is showing you are due in the above list, this will be updated after this visit. You had this completed today and are not due for another year. documented in this encounter Progress Notes Shiraz Simeon PA-C - 03/14/2022 10:40 AM CDT Medicare Annual Wellness Visit Subjective/Historical: Shruti Corbin is a 76 y.o. old female Chief Complaint Patient presents with Preventative Health Exam Video Visit Current Concerns: Medication check, see below Advance Directives: No advance directives are on file. Discussed completing advance directives. Observed Vitals: There were no vitals taken for this visit. Assessment/Plan 1. Encounter for Medicare annual wellness exam 2. Iron deficiency anemia, unspecified iron deficiency anemia type 3. Generalized anxiety disorder (HRC) 4. Restless legs syndrome (RLS) 5. History of gastric ulcer 6. Chronic right-sided low back pain with right-sided sciatica 7. Screening for colon cancer 8. Screening cholesterol level 9. Diabetes mellitus screening Counseling and education provided today includes proper nutrition and health habits, fall prevention, and for those items ordered above. See plan for future preventive services in Patient Instructions. Shiraz Simeon PA-C 03/14/2022, 11:17 AM Subjective: Today's visit with Shruti was conducted as a scheduled video visit. Restless leg syndrome is managed well with gabapentin. She tolerates the medication well and does not feel imbalance if she needs to get up in the middle of the night to go to the bathroom. She is sleeping fairly soundly. Does not wake feeling groggy in the mornings. Takes tramadol on a scheduled basis to manage chronic low back pain. Her pain needs have not changedin several years. [facility] reviewed and negative for concerns. She is able to remain physicallyactive. She and her son are now living together and he is taking great care of her, spoiling her. Tolerates the medication well and does not feel that it causes any cognitive issues, constipation or any other side effects of concern. Takes omeprazole for prevention of peptic ulcer disease with a history of severe anemia caused by a peptic ulcer. She has not had any symptoms of concern including dizziness, lightheadedness or fatigue. She is due to have labs updated. Objective: There were no vitals taken for this visit. Well-groomed, casually-dressed and maintains good eye contact during our discussion today. Assessment/Plan: Iron deficiency anemia, unspecified iron deficiency anemia type - Complete Blood Count-No Diff; Future - Ferritin; Future - Iron Profile (Iron,TIBC,%Sat.(Calc)); Future Generalized anxiety disorder (HRC) - sertraline (ZOLOFT) 100 MG tablet; Take 1 Tablet (100 mg) by mouth daily. Restless legs syndrome (RLS) - gabapentin (NEURONTIN) 400 MG capsule; TAKE 4 TO 5 CAPSULES AT BEDTIME History of gastric ulcer - omeprazole (PRILOSEC) 20 MG capsule; Take 1 Capsule (20 mg) by mouth two times a day before meals.Take 1 hour before a meal. Chronic right-sided low back pain with right-sided sciatica - traMADol (ULTRAM) 50 MG tablet; Take 1 Tablet (50 mg) by mouth every 8 hours as needed for Pain. Screening for colon cancer - Endoscopy, Colon, Screening/Diagnostic; Future Screening cholesterol level - Lipid Panel and Direct LDL(If Needed); Future Diabetes mellitus screening - Glucose; Future Continue medications without change. Phone number given to schedule screening colonoscopy. Quick schedule text will be sent so she can schedule fasting lab appointment. Shiraz Simeon PA-C documented in this encounter Plan of Treatment Scheduled Orders Name Type Priority Associated Diagnoses Order S chedule Endoscopy, Colon, GI Routine Screening for colon 1 O ccurrences starting Screening/Diagnostic cancer 022 until 03/14/2024 documented as of this encounter Visit Diagnoses Diagnosis Encounter for Medicare annual wellness e xam - Primary Iron deficiency anemia, unspecified iron deficiency anemia type Generalized anxiety disorder (HRC) Generalized anxiety disorder Restless legs syndrome (RLS) History of gastric ulcer Personal history of other diseases of di gestive system Chronic right-sided low back pain with r ight-sided sciatica Screening for colon cancer Special screening for malignant neoplasm s, colon Screening cholesterol level Screening for lipoid disorders Diabetes mellitus screening Screening for diabetes mellitus documented in this encounter Care Teams Refrigeration Specialist Relationship Specialty Start Date End Date Shiraz Simeon PA-C PCP - General 03/02/16 [address] [place], [place] [address] documented as of this encounter
--- OUTSIDE RECORDS SUMMARY | 2022-05-31 14:42 | XMS_ITS | Encounter Summary ---
:1945 Author Organization [employer] Address [address] [facility] [place] [address] Care Team Providers Name Role Phone Shiraz Simeon PA-C Primary Care Provider Reason for Visit Reason Onset Date Comments MEDICATION CHECK Medicare Annual Wellness Phone Visit 04/05/2021 Encounter Details Date Type Department Care Team Description 04/05/2021 Phone Visit [facility] e Shiraz Simeon, Chronic right-sided low back pain with right-sided sciatica (Primary Dx); [address] PA-C Generalized anxiety disorder; [place] [address] History of gastric ulcer; [phone] [place] [address] Restless legs syndrome (RLS); [phone] Post-menopausal ; (Work) Breast cancer screening by mammogram Social History Tobacco Use Types Packs/Day Years Used Date Smoking Tobacco: Every Day Cigarettes 0.3 Smokeless Tobacco: Never Alcohol Use Standard Drinks/Week Comments No 0 (1 standard drink = 0.6 oz pure alcoho l) Sex Assigned at Date Recorded Not on file documented as of this encounter Last Filed Vital Signs Vital Sign Reading Time Taken Comments Blood Pressure - - Pulse - - Temperature - - Respiratory Rate - - Oxygen Saturation - - Inhaled Oxygen Concentration - - Weight 47.6 kg (105 lb) 04/04/2021 8:28 AM CDT PER PT Height 160 cm (5' 3) 04/04/2021 8:28 AM CDT PER PT Body Mass Index 18.6 04/04/2021 8:28 AM CDT documented in this encounter Progress Notes Shiraz Simeon PA-C - 04/05/2021 9:40 AM CDT Subjective: Today's visit with Shruti Corbin was conducted as a scheduled telephone visit. Chronic back pain is really more of a sciatica. Flares up on her when she sits too much, which she tends to do at work. 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 She does not see herself retiring but would like him to take over the primary responsibility and she would just be there to help him out. She would like to be more active and getting more time away from work would be a good way for her to do this. Restless leg syndrome is fairly well managed but she needs to take up to 5 tablets of gabapentin at bedtime for it to work. She has no adverse effectsfrom this and does not wake feeling sedated in the morning. She denies any history of falls. Anxietyis well managed with current dosage of sertraline and she tolerates it well. Would like to continue.Health maintenance reviewed. Objective: Health Maintenance Due Topic Date Due ??? COVID-19 Vaccine (1) Never done ??? Dexa Never done ??? Mammogram 03/16/2013 ??? Zoster (3 of 3) 06/24/2019 ??? Medicare Annual Wellness Visit 07/02/2020 ??? Influenza (1) 03/02/2021 BP Readings from Last 1 Encounters: 06/05/19 104/68 Assessment/Plan: Chronic right-sided low back pain with right-sided sciatica - traMADol (ULTRAM) 50 MG tablet; Take 1 Tablet by mouth every 8 hours as needed for Pain. Generalized anxiety disorder (HRC) - sertraline (ZOLOFT) 100 MG tablet; Take 1 Tablet by mouth daily. History of gastric ulcer - omeprazole (PRILOSEC) 20 MG capsule; Take 1 Capsule by mouth daily. Take 1 hour before a meal. Restless legs syndrome (RLS) - gabapentin (NEURONTIN) 400 MG capsule; Take 4-5 Capsules by mouth every evening for 90 days. TAKE 4 CAPSULES BY MOUTH EVERY EVENING FOR RESTLESS LEG SYNDROME Post-menopausal - DXA Bone Density Spine/Hip; Future Breast cancer screening by mammogram - MM Mammogram Screening Bilat W CAD; Future Medications renewed without change. Recommend to schedule bone density scan and screening mammogram when she feels more comfortable as COVID numbers start to decline. I did recommend that she pursue vaccination even though she is being extremely careful and not leaving her home much. She and her son are discussing it and will likely end up getting it together. Billing based on: Time Total time for the visit was 17 minutes including, but not limited to, [id number] time spent reviewing records, counseling, and coordination of care. Shiraz Simeon PA-C documented in this encounter Plan of Treatment Not on filedocumented as of this encounter Visit Diagnoses Diagnosis Chronic right-sided low back pain with r ight-sided sciatica - Primary Generalized anxiety disorder (HRC) Generalized anxiety disorder History of gastric ulcer Personal history of other diseases of di gestive system Restless legs syndrome (RLS) Post-menopausal Asymptomatic postmenopausal status (age- related) (natural) Breast cancer screening by mammogram documented in this encounter Care Teams Wheelchair Driver Relationship Specialty Start Date End Date Shiraz Simeon PA-C PCP - General 03/02/16 [address] [place], [place] [address] documented as of this encounter
--- OUTSIDE RECORDS SUMMARY | 2022-05-31 14:42 | XMS_ITS | Encounter Summary ---
:1945 Author Organization [email or web address] Address [address] [place] [address] Care Team Providers Name Role Phone Shiraz Simeon PA-C Primary Care Provider Reason for Visit Reason Comments Verbal Orders Encounter Details Date Type Department Care Team Description 06/16/2021 Telephone [facility] Medicin e Shiraz Simeon PA-C Verbal Orders [address] [place] [address] [place] [address] [phone] (Wo rk) Social History Tobacco Use Types Packs/Day Years Used Date Smoking Tobacco: Every Day Cigarettes 0.3 Smokeless Tobacco: Never Alcohol Use Standard Drinks/Week Comments No 0 (1 standard drink = 0.6 oz pure alcoho l) Sex Assigned at Date Recorded Not on file documented as of this encounter Nursing Notes Belkis Paris LPN - 06/16/2021 3:48 PM CST Called patients home care and verbal order given for PT. [facility] Josette Ashby MD - 06/16/2021 3:08 PM CST OK for PT as requested, please let them know. [facility] AND NOTCHER Belkis Paris LPN - 06/16/2021 1:46 PM CST Home care is calling and requesting referral for physical therapy, after having covid, will route delaney. ER AND NOTCHER Maximo Ruiz - 06/16/2021 12:08 PM CST Orders - Home Care What type of home care is being requested? PT Why is this home care needed (symptom/diagnosis)? covid Start date of service: 06/16 Frequency/Duration of service: 2xwk for 3 wks 1xwk for 4 wks How would home care like to receive this order? Verbal Order Additional comments (related to the above concern): Is it okay to leave a detailed message on your voicemail? Yes Is there anything else I can help you with today? [facility] documented in this encounter Plan of Treatment Not on filedocumented as of this encounter Visit Diagnoses Not on filedocumented in this encounter Additional Health Concerns Infection Onset Date Last Indicated Resolved Time COVID19 06/01/2021 06/01/2021 06/21/2021 3:17 AM F[facility]DER [facility] NOTCH[facility] documented as of this encounter Care Teams Second Cutter Relationship Specialty Start Date End Date Shiraz Simeon PA-C PCP - General 03/02/16 [address] [place], [place] [address] documented as of this encounter
--- OUTSIDE RECORDS SUMMARY | 2022-05-31 14:42 | XMS_ITS | Encounter Summary ---
:1945 Author Organization [employer] Address [address] [place] [address] Care Team Providers Name Role Phone Shiraz Simeon PA-C Primary Care Provider Reason for Visit Reason Comments Refill traMADol (ULTRAM) 50 MG tabl et [Pharmacy Med Name: TRAMADOL 50MG TABLETS] Encounter Details Date Type Department Care Team Description 11/05/2020 Refill [facility] Shiraz Simeon PA-C Refill (traMADol [address] (ULTRAM) 50 MG tablet [place] [address] [place] [address] [Pharmacy Med Name: [phone] (Wo rk) TRAMADOL 50MG TABLETS]) Social History Tobacco Use Types Packs/Day Years Used Date Smoking Tobacco: Every Day Cigarettes 0.3 Smokeless Tobacco: Never Alcohol Use Standard Drinks/Week Comments No 0 (1 standard drink = 0.6 oz pure alcoho l) Sex Assigned at Date Recorded Not on file documented as of this encounter Nursing Notes Shiraz Simeon PA-C - 11/10/2020 7:24 PM CDT faxed Interface, Out Surescripts Prov Query - 11/05/2020 4:46 PM CDT traMADol (ULTRAM) 50 MG tablet [Pharmacy Med Name: TRAMADOL 50MG TABLETS] Medication started: 01/27/2015 Last ordered by SHIRAZ SIMEON: 05/26/2020 (163 days ago) QTY: 90, Refills: 0, Sig: take 1 tablet by mouth every 8 hours as needed for pain. (unchanged) -> Medication cannot be delegated. Last qualifying visit: 01/16/2020 (with SHIRAZ SIMEON) Next scheduled visit: None Powered by [employer] by [employer], Reference: [id number], 11/05/2020 4:46:25 PM CDT, Pool:ARIANNE VALDEZ ([id number]) Interface, Out Midisolaire Prov Query - 11/05/2020 4:46 PM CDT No Careplan note found by [employer]. 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
--- OUTSIDE RECORDS SUMMARY | 2022-05-31 14:42 | XMS_ITS | Encounter Summary ---
:1945 Author Organization [employer] Address [address] [place] [address] Care Team Providers Name Role Phone Shiraz Simeon PA-C Primary Care Provider Reason for Visit Reason Comments Follow-up Encounter Details Date Type Department Care Team Description [facility] Follow-up [address] [place] [address] [place] [address] [phone] (Wo rk) Social History Tobacco Use Types Packs/Day Years Used Date Smoking Tobacco: Every Day Cigarettes 0.3 Smokeless Tobacco: Never Alcohol Use Standard Drinks/Week Comments No 0 (1 standard drink = 0.6 oz pure alcoho l) Sex Assigned at Date Recorded Not on file documented as of this encounter Nursing Notes Belkis Paris LPN - 06/14/2021 3:53 PM CST Called and message given that provider Shiraz Simeon PA-C will follow patient for home care. N MARKETING ANALYST Shiraz Simeon PA-C - 06/14/2021 3:21 PM CST Yes I will follow her for home care N MARKETING ANALYST Roberto Conn - 06/14/2021 2:03 PM CST [facility] is calling to check if PCP will follow pt for home care, needs to know tram because planning to see pt tomorrow. Needs to know today otherwise wont be able to see pt tomorrow. N MARKETING ANALYST Veronica Hernandez RN - 06/13/2021 11:16 AM CST Clinician Action: Input needed regarding ongoing personal care aid Next Step: Route to [facility] pool to follow up and Patient IS expecting a call back fromcare team Specific Request(s): 1. Cecille from home care wondering if PCP would follow pt during home care. Pt was d/c from hospital due to COVID. N MARKETING ANALYST Francisca Little - 06/13/2021 11:02 AM CST Miscellaneous Questions & FYI's - Question/Concern (DO NOT use for billing and coding concerns see [facility] care reporting system) What is your question or concern? Per caller would like to ask pcp if she will follow up with patient for home care? Per caller statedpt just got discharged from having Covid-19. Per caller will wait for a response back, please advise Is it okay to leave a detailed message on your voicemail? Yes (Advise caller that the PN call back number will end with [phone] or unknown) Please route to: Appropriate pool per call routing grid N MARKETING ANALYST documented in this encounter Plan of Treatment Not on filedocumented as of this encounter Visit Diagnoses Not on filedocumented in this encounter Additional Health Concerns Infection Onset Date Last Indicated Resolved Time COVID19 06/01/2021 06/01/2021 06/21/2021 3:17 AM GREEN MARKETING ANALYST documented as of this encounter Care Teams Ink Jet Operator Relationship Specialty Start Date End Date Shiraz Simeon PA-C PCP - General 03/02/16 [address] [place] [address] documented as of this encounter
--- OUTSIDE RECORDS SUMMARY | 2022-05-31 14:42 | XMS_ITS | Encounter Summary ---
:1945 Author Organization [employer] Address [address] [place] [address] Care Team Providers Name Role Phone Shiraz Simeon PA-C Primary Care Provider Reason for Visit Reason Comments Refill traMADol (ULTRAM) 50 MG tabl et [Pharmacy Med Name: TRAMADOL 50MG TABLETS] Encounter Details Date Type Department Care Team Description 01/06/2021 Refill [facility] Shiraz Simeon PA-C Refill (traMADol [address] (ULTRAM) 50 MG tablet [place] [address] [place] [address] [Pharmacy Med Name: [phone] (Wo rk) TRAMADOL 50MG TABLETS]) Social History Tobacco Use Types Packs/Day Years Used Date Smoking Tobacco: Every Day Cigarettes 0.3 Smokeless Tobacco: Never Alcohol Use Standard Drinks/Week Comments No 0 (1 standard drink = 0.6 oz pure alcoho l) Sex Assigned at Date Recorded Not on file documented as of this encounter Nursing Notes Shiraz Simeon PA-C - 01/06/2021 1:30 PM CDT faxed Interface, Out Surescripts Prov Query - 01/06/2021 9:46 AM CDT traMADol (ULTRAM) 50 MG tablet [Pharmacy Med Name: TRAMADOL 50MG TABLETS] Medication started: 01/27/2015 Last ordered by SHIRAZ SIMEON: 11/10/2020 (57 days ago) QTY: 90, Refills: 0, Sig: take 1 tablet by mouth every 8 hours as needed for pain (unchanged) -> Medication cannot be delegated. Last qualifying visit: 01/16/2020 (with SHIRAZ SIMEON) Next scheduled visit: None Powered by [employer], Reference: [id number], 01/06/2021 9:46:51 AM CDT, Pool:ARIANNE VALDEZ ([id number]) Interface, Out [facility] Prov Query - 01/06/2021 9:46 AM CDT No Careplan note found by [employer]. documented in this encounter Plan of Treatment Not on filedocumented as of this encounter Visit Diagnoses Diagnosis Chronic right-sided low back pain with r ight-sided sciatica documented in this encounter Care Teams Glove Turner Relationship Specialty Start Date End Date Shiraz Simeon PA-C PCP - General 03/02/16 [address] [place] [address] documented as of this encounter
--- OUTSIDE RECORDS SUMMARY | 2022-05-31 14:42 | XMS_ITS | Encounter Summary ---
:1945 Author Organization [employer] Address [address] [place] [address] Care Team Providers Name Role Phone Shiraz Simeon PA-C Primary Care Provider Reason for Visit Reason Comments COVID Test Results Encounter Details Date Type Department Care Team Description 06/02/2021 Telephone [facility] OTILIA Asif COVID Test Results Urgent Care [address] [address] [place] [address] [phone] (Wo rk) Social History Tobacco Use Types Packs/Day Years Used Date Smoking Tobacco: Every Day Cigarettes 0.3 Smokeless Tobacco: Never Alcohol Use Standard Drinks/Week Comments No 0 (1 standard drink = 0.6 oz pure alcoho l) Sex Assigned at Date Recorded Not on file documented as of this encounter Nursing Notes Debra Hassan RN - 06/03/2021 10:16 AM CST Family was notified that COVID-19 testing was positive. Patient has symptoms. Date of onset of symptoms: 05-27-2021 Current symptoms consist of: Cough, Chills, Fatigue and loose stools, nausea. Progression of symptoms: improved Family was given and able to verbalize home isolation instructions for patients that have tested positive for COVID. ??? Remain in home isolation for: o Immunocompetent Patient: at least 10 days have passed since your symptoms first appeared AND you've not had a fever for 24 hours without fever reducing medicine AND all your symptoms have improved. Loss of taste and smell may persist for weeks or months after recovery and need not delay the end of is olation. o Immunocompromised Patient: at least 20 days have passed since your symptoms first appeared AND you've not had a fever for 24 hours without fever reducing medicine AND all your symptoms have improved. ??? Per CDC guidelines you are able to discontinue Home Isolation on 06-07-2021. ??? Until that date: do not leave your home, except to get medical care, stay connected with your doctor via video visits unless you have emergency warning signs or if you feel it's an emergency, avoidpublic areas and transportation. Separate yourself from others as much as possible by staying in a specific room away from people and pets in your home, use a separate bathroom if available, wear a cloth face covering if you need to be around others in your home. ??? COVID-19 Tests can remain positive for several weeks after your initial test. We do not provide repeat COVID-19 testing for 90 days following a positive test result. If you develop new symptoms, please contact us to speak to a nurse or your clinician. ??? Wash often with soap and water for at least 20 seconds, or use an alcohol- based hand contractor broomcorn threshing containing at least 60% alcohol. Avoid touching your face. ??? Close contacts (those whom were within 6 feet of you for a total of 15 minutes or more within 48hours prior to your COVID test) should call their healthcare provider right away if they develop symptoms suggestive of COVID 19. ??? Your close contacts, who are not fully vaccinated,should begin their quarantine as soon as possible by monitoring their health and themselves from others by staying home. It is recommended they test immediately for COVID-19 and if negative, 5-7 days after the last date of exposure Encourage those living with you to wear a mask for 14 days or until they receive a negative test result The duration of quarantine is as follows: o 14 days for individuals who: - Were exposed at home. - Live in congregate living such as long-term care facilities, prisons, or shelters. - Work in healthcare, mcc care, or corrections. o For all other individuals, quarantine may be shortened as follows: - Quarantine for 10 days from last exposure date. - Quarantine for 7 days from last exposure date only with a negative COVID-19 test, happening at least 5 full days after last exposure. Individuals awaiting test results should not end quarantine. - These individuals should continue to monitor for symptoms for a full 14 days after last exposure date, even when the quarantine has ended. ??? If your close contact is fully vaccinated, no quarantine is needed, however it is recommended that they be tested 5-7 days post exposure. It is also recommended that they wear a mask in public indoor settings for 14 days or until they receive a negative COVID-19 test result. Encourage those livingwith you to wear a mask for 14 days or until they receive a negative test result. o Note: Any time a new household member gets sick with COVID-19, the quarantine of the remaining non-infected household members, who are not fully vaccinated, will need to be restarted from their last close contact with the new case. o If your close contact is a healthcare employee, they should contact their employer to confirm quarantine details. ??? Use a tissue when you cough or sneeze. Throw used tissues in a lined trash can. Immediately washyour hands. ??? You should not share dishes, drinking glasses, cups, eating utensils, towels, or bedding with other people in your home. After using these items, they should be washed thoroughly with soap and water. Clean all high touch surfaces in your home daily. ??? Avoid contact with pets or other animals while you are sick. When possible, have another member of your household care for your animals while you are sick. ??? It's important for you to watch for any worsening symptoms, especially if you are at a higher risk for getting very sick from COVID-19. Higher risk groups include people older than age 60 and people who have serious chronic medical conditions like heart disease, diabetes or lung disease. ??? Pay attention to the speed of worsening symptoms. If your symptoms are gradually worsening and you're concerned, try a video visit or call your clinic. Normally symptoms worsen a bit before gettingbetter. ??? Seek care at an emergency room if these symptom suddenly or quickly worsen: Sudden worsening shortness of breath, sudden worsening wheezing, difficulty swallowing, slurred speech, facial numbness, new confusion or inability to arouse, persistent pain or pressure in the chest, leg swelling. ??? Before returning to work, you must contact your employer for return to work instructions. ??? Return to sports: o If your child had any of the following: a fever >4 days, was lethargic >7 days, had chills or muscle aches/pains >7 days, OR hospitalized with COVID-19, an in-person visit is required. All other patients may be seen in person or via telemedicine. ??? Recommended Centers of Disease Control (CDC), [place] Department of Health ([facility]), and [facility] websites for further information on Coronavirus. ??? Advised patient to review COVID-19 handout given to them at time of testing. Criteria for Monoclonal Antibody Treatment: Patient must be >12 years old and >88 lbs Is the patient within 10 days of symptom onset? Yes Is patient high risk? Yes - Select all that apply: Age >65 Is the patient requiring an increase in oxygen flow rate from baseline OR new oxygen therapy since COVID diagnosis? No Patient appears to meet criteria for mAb treatment. - Non-Established patient: ??? Assist with scheduling a VV with a clinician within 24 hours ??? For [place] patients - direct them to [facility] site to complete screening. - Established patient: ??? Follow standing order for Monoclonal Antibody Treatment: o Place order for CASIRIVIMAB-IMDEVIMAB 600-600 MG o For [place] patients - direct patient to [facility] site to complete screening - [facility] site: [email or web address]./diseases/coronavirus/meds o What to expect at the clinic visit: - If covid testing results are not in our system, bring results to clinic visit. - Administration: Four sub-Q injections (if at [facility]) - Medication: Regen-Cov (medication doesn???t have any latex, preservatives, or thimerosal) - Appointment time: Takes 90 min for appointment (1 hour monitor after injection) - Encourage patients to come accompanied by a friend/family member if possible. Does patient have any questions? No Does patient need documentation as verification of their results? No The following advice may help if you have a fever, sore throat, cough, or sinus infection/pain. Please note that because COVID-19 is a viral infection, an antibiotic won???t soothe or treat the virus. Getting plenty of rest and drinking water to stay hydrated is ann to feeling better. and For Adults only with a bothersome cough or congestion: A cough suppressant should only be used when you need a rest or break from your cough. Use an tdyz-adn-dlnnder cough medication that contains dextromethorphan(such as Delsym??) sparingly. 06/03/2021, 10:17 AM OR SUPPLIER QUALITY ENGINEER Marleni Barahona - 06/02/2021 7:45 PM CST Lab Results Component Value Date CORONAV Detected (A) 06/01/2021 Lab Status: @RULEERRMSG([id number])@ OR SUPPLIER QUALITY ENGINEER documented in this encounter Plan of Treatment Not on filedocumented as of this encounter Visit Diagnoses Diagnosis Infection due to 2019 novel coronavirus - Primary documented in this encounter Additional Health Concerns Infection Onset Date Last Indicated Resolved Time R/O COVID19 06/01/2021 06/01/2021 06/02/2021 6:24 PM SENIOR SUPPLIER QUALITY ENGINEER COVID19 06/01/2021 06/01/2021 06/21/2021 3:17 AM SENIOR SUPPLIER QUALITY ENGINEER documented as of this encounter Care Teams Skid Worker Relationship Specialty Start Date End Date Shiraz Simeon PA-C PCP - General 03/02/16 [address] [place], [place] [address] documented as of this encounter
--- OUTSIDE RECORDS SUMMARY | 2022-05-31 14:42 | XMS_ITS | Encounter Summary ---
:1945 Author Organization [employer] Address [address] [place] [address] Care Team Providers Name Role Phone Shiraz Simeon PA-C Primary Care Provider Reason for Visit Reason Comments Refill lisinopril (ZESTRIL) 10 MG t ablet [Pharmacy Med Name: LISINOPRIL 10MG TABLETS] Encounter Details Date Type Department Care Team Description 10/22/2019 Refill [facility] Shiraz Simeon PA-C Refill (lisinopril [address] (ZESTRIL) 10 MG tablet [place] [address] [place] [address] [Pharmacy Med Name: [phone] (Wo rk) LISINOPRIL 10MG TABLETS]) Social History Tobacco Use Types Packs/Day Years Used Date Smoking Tobacco: Every Day Cigarettes 0.3 Smokeless Tobacco: Never Alcohol Use Standard Drinks/Week Comments No 0 (1 standard drink = 0.6 oz pure alcoho l) Sex Assigned at Date Recorded Not on file documented as of this encounter Nursing Notes Delaney Miller RN - 10/27/2019 11:43 AM CDT Spoke with patient, she isn't taking this medication, no refill needed. Alia Garcia RN - 10/27/2019 10:50 AM CDT Further Assistance Needed on Refill from Nursing/Triage Please clarify how patient is taking medication. The medication cannot be found in the patient's medication history. ? Next steps: Nursing/Triage to complete refill as appropriate. Requested Prescriptions Pending Prescriptions Disp Refills ??? lisinopril (ZESTRIL) 10 MG tablet [Pharmacy Med Name: LISINOPRIL 10MG TABLETS] 90 Tablet Sig: TEST Interface, Out [employer] Query - 10/22/2019 5:21 PM CDT lisinopril (ZESTRIL) 10 MG tablet [Pharmacy Med Name: LISINOPRIL 10MG TABLETS] -> The medication cannot be found in the patient's medication history. -> Cr and K were not found within the last 5 years. Last qualifying visit: 10/09/2019 (with SHIRAZ SIMEON) Next scheduled visit: None SBP: 104 mm Hg on 06/05/2019 DBP: 68 mm Hg on 06/05/2019 Cr: Not found K: Not found Powered by [employer], Reference: [id number], 10/22/2019 5:21:05 PM CDT, Clif: ARIANNE REFILL ([id number]) documented in this encounter Plan of Treatment Not on filedocumented as of this encounter Visit Diagnoses Not on filedocumented in this encounter Care Teams Inspector Balance Truing Relationship Specialty Start Date End Date Shiraz Simeon PA-C PCP - General 03/02/[address] [place] [address] documented as of this encounter
--- OUTSIDE RECORDS SUMMARY | 2022-05-31 14:42 | XMS_ITS | Encounter Summary ---
:1945 Author Organization [employer] Address [address] [place] [address] Care Team Providers Name Role Phone Shiraz Simeon PA-C Primary Care Provider Reason for Visit Reason Comments Verbal Orders Encounter Details Date Type Department Care Team Description 07/05/2021 Telephone [facility] Shiraz Simeon PA-C Verbal Orders [address] [place] [address] [place] [address] [phone] (Wo rk) Social History Tobacco Use Types Packs/Day Years Used Date Smoking Tobacco: Every Day Cigarettes 0.3 Smokeless Tobacco: Never Alcohol Use Standard Drinks/Week Comments No 0 (1 standard drink = 0.6 oz pure alcoho l) Sex Assigned at Date Recorded Not on file documented as of this encounter Nursing Notes Belkis Paris LPN - 07/06/2021 1:34 PM CST Called and left message for [facility] in physical therapy, giving ok for PT from patients provider Shiraz Simeon PA-C. ION WRITER Shiraz Simeon PA-C - 07/06/2021 12:10 PM CST Please call in verbal order for PT ION WRITER Belkis Paris LPN - 07/05/2021 2:25 PM CST Home care calling([facility]) requesting home care for physical therapy, patient diagnosed with covid, requesting verbal order, will route to provider Shiraz Simeon PA-C. ION WRITER Chelsi Leon - 07/05/2021 1:41 PM CST Orders - Home Care What type of home care is being requested? PT Why is this home care needed (symptom/diagnosis)? COVID Start date of service: 07/05/21 Frequency/Duration of service: 1 time for 1 week, 2 times for 3 weeks, 1 time for 4 weeks. How would home care like to receive this order? Verbal Order Additional comments (related to the above concern): Is it okay to leave a detailed message on your voicemail? Yes Is there anything else I can help you with today? ION WRITER documented in this encounter Plan of Treatment Not on filedocumented as of this encounter Visit Diagnoses Not on filedocumented in this encounter Care Teams Pocket Flap Creasing Machine Operator Relationship Specialty Start Date End Date Shiraz Simeon PA-C PCP - General 03/02/16 [address] [place], [place] [address] documented as of this encounter
--- OUTSIDE RECORDS SUMMARY | 2022-05-31 14:42 | XMS_ITS | Encounter Summary ---
:1945 Author Organization [facility] Address [address] [place] [address] Care Team Providers Name Role Phone Shiraz Simeon PA-C Primary Care Provider Reason for Visit Reason Comments Refill gabapentin (NEURONTIN) 400 M G capsule [Pharmacy Med Name: GABAPENTIN 400MG CAPSULES] Encounter Details Date Type Department Care Team Description 03/22/2021 Refill [facility] Shiraz Simeon PA-C Refill (gabapentin [address] (NEURONTIN) 400 [place] [address] [place] [address] capsule [Pharmacy Med [phone] (Wo rk) Name: GABAPENTIN 400MG CAPSULES] ) Social History Tobacco Use Types Packs/Day Years Used Date Smoking Tobacco: Every Day Cigarettes 0.3 Smokeless Tobacco: Never Alcohol Use Standard Drinks/Week Comments No 0 (1 standard drink = 0.6 oz pure alcoho l) Sex Assigned at Date Recorded Not on file documented as of this encounter Nursing Notes Fauzia Pearson - 03/24/2021 12:08 PM CDT Medication Refill - Overdue for Visit Called patient, was: Successful in reaching patient We recently received a refill request for one of your medications. In order to ensure your medication is safe and effective, your clinician needs to see you at least yearly for an office visit. May I help you schedule that office visit? Patient is due for a(n): office visit Patient scheduled appointment on: 04/05/2021 Do you have enough medication to last until your appointment? No I will request a one-time quantity to last until your appointment. Please check with your pharmacy on the status of your refill. Frontline Action: Route to the appropriate pool or clinician, as specified in nursing documentation below Clinician Action: Patient scheduled, requests refill. Recommend using Rx Final quick action to address request. Tami Oquendo - 03/22/2021 6:22 PM CDT Medication Refill - Overdue for Visit Called patient, was: Successful in reaching patient We recently received a refill request for one of your medications. In order to ensure your medication is safe and effective, your clinician needs to see you at least yearly for an office visit. May I help you schedule that office visit? Patient is due for a(n): office visit Patient declined to schedule due to: has a meeting going on and would like me to call back tomorrow. I will send a request to see if a temporary refill can be provided. Please check with your pharmacy on the status of your refill. Frontline: Route to clinician identified in nursing documentation below Clinician Action: Patient declines to schedule, requests refill. Recommend using Rx Final or Rx Deny quick action to address request. Shiraz Simeon PA-C - 03/22/2021 5:54 PM CDT Overdue for office visit. Please help her schedule and send back for prescription once schedule for in clinic visit. Interface, Out [employer] Prov Query - 03/22/2021 9:39 AM CDT gabapentin (NEURONTIN) 400 MG capsule [Pharmacy Med Name: GABAPENTIN 400MG CAPSULES] Medication started: 12/14/2015 Last ordered by SHIRAZ SIMEON: 07/12/2020 (253 days ago) QTY: 360, Refills: 2, Sig: take 4 capsules by mouth every evening for restless leg syndrome (unchanged) -> Medication cannot be delegated. Last qualifying visit: 01/16/2020 (with SHIRAZ SIMEON) Next scheduled visit: None Powered by [employer], Reference: [id number], 03/22/2021 9:39:45 AM CDT, Pool:ARIANNE JARAMILLOILL ([id number]) documented in this encounter Plan of Treatment Not on filedocumented as of this encounter Visit Diagnoses Diagnosis History of gastric ulcer Personal history of other diseases of di gestive system Generalized anxiety disorder (HRC) Generalized anxiety disorder Restless legs syndrome (RLS) documented in this encounter Care Teams Coating Engineer Relationship Specialty Start Date End Date Shiraz Simeon, MARYC PCP - General 03/02/16 [address] [place] [address] documented as of this encounter
--- OUTSIDE RECORDS SUMMARY | 2022-05-31 14:42 | XMS_ITS | Encounter Summary ---
:1945 Author Organization [facility] Address [address] [place] [address] Care Team Providers Name Role Phone Shiraz Simeon PA-C Primary Care Provider Reason for Visit Reason Comments Refill gabapentin (NEURONTIN) 400 M G capsule [Pharmacy Med Name: GABAPENTIN 400MG CAPSULES] Encounter Details Date Type Department Care Team Description 07/31/2019 Refill [facility] Shiraz Simeon PA-C Refill (gabapentin [address] (NEURONTIN) 400 [place] [address] [place] [address] capsule [Pharmacy Med [phone] (Wo rk) Name: GABAPENTIN 400MG CAPSULES] ) Social History Tobacco Use Types Packs/Day Years Used Date Smoking Tobacco: Every Day Cigarettes 0.3 Smokeless Tobacco: Never Alcohol Use Standard Drinks/Week Comments No 0 (1 standard drink = 0.6 oz pure alcoho l) Sex Assigned at Date Recorded Not on file documented as of this encounter Nursing Notes Ara Burns RN - 08/04/2019 3:19 PM CST Renewed medication per medication refill protocol. Requested Prescriptions Signed Prescriptions Disp Refills ??? gabapentin (NEURONTIN) 400 MG capsule 360 Capsule 2 Sig: TAKE FOUR CAPSULES BY MOUTH EVERY EVENING FOR RESTLESS LEG SYNDROME Authorizing Provider: SHIRAZ SIMEON Ordering User: ARA BURNS TY DIRECTOR Interface, Out [employer] Prov Query - 07/31/2019 10:23 AM CST gabapentin (NEURONTIN) 400 MG capsule [Pharmacy Med Name: GABAPENTIN 400MG CAPSULES] Medication started: 12/24/2013 Last ordered by SHIRAZ SIMEON: 04/29/2019 (93 days ago) QTY: 360, Refills: 3, Sig: take 4 capsules every evening for restless leg syndrome (changed) -> This medication may not have been authorized by the requested provider. -> The patient is requesting a renewal from a different pharmacy. -> Due to an unreadable sig, manually ensure the patient is due for a renewal. -> The requested sig has changed from the last order. -> Refill x 12 months (until due for an office visit) -> Calculate quantity and refills manually. They could not be estimated due to missing or unreadable information. Last qualifying visit: 06/05/2019 (with SHIRAZ SIMEON) Next scheduled visit: None Powered by [employer], Reference: [id number], 07/31/2019 10:23:50 AM SAFETY DIRECTOR, Pool: ARIANNE REFILL ([id number]) TY DIRECTOR documented in this encounter Plan of Treatment Not on filedocumented as of this encounter Visit Diagnoses Diagnosis Restless legs syndrome (RLS) documented in this encounter Care Teams Librarian School Relationship Specialty Start Date End Date Shiraz Simeon, KENISHA PCP - General 03/02/16 [address] [place] [address] documented as of this encounter
--- OUTSIDE RECORDS SUMMARY | 2022-05-31 14:42 | XMS_ITS | Encounter Summary ---
:1945 Author Organization [facility] Address [address] [place] [address] Care Team Providers Name Role Phone Shiraz Simeon PA-C Primary Care Provider Reason for Visit Reason Comments Refill traMADol (ULTRAM) 50 MG tabl et [Pharmacy Med Name: TRAMADOL 50MG TABLETS] Encounter Details Date Type Department Care Team Description 02/27/2021 Refill [facility] Shiraz Simeon PA-C Refill (traMADol [address] (ULTRAM) 50 MG tablet [place] [address] [place] [address] [Pharmacy Med Name: [phone] (Wo rk) TRAMADOL 50MG TABLETS]) Social History Tobacco Use Types Packs/Day Years Used Date Smoking Tobacco: Every Day Cigarettes 0.3 Smokeless Tobacco: Never Alcohol Use Standard Drinks/Week Comments No 0 (1 standard drink = 0.6 oz pure alcoho l) Sex Assigned at Date Recorded Not on file documented as of this encounter Nursing Notes Shiraz Simeon PA-C - 02/28/2021 11:59 AM CDT faxed Interface, Out [employer] Prov Query - 02/27/2021 11:13 AM CDT traMADol (ULTRAM) 50 MG tablet [Pharmacy Med Name: TRAMADOL 50MG TABLETS] Medication started: 09/27/2015 Last ordered by SHIRAZ SIMEON: 01/06/2021 (52 days ago) QTY: 90, Refills: 0, Sig: take 1 tablet by mouth every 8 hours as needed for pain (unchanged) -> Medication cannot be delegated. Last qualifying visit: 01/16/2020 (with SHIRAZ SIMEON) Next scheduled visit: None Powered by [employer], Reference: [id number], 02/27/2021 11:13:06 AM CDT, Pool: ARIANNE VALDEZ ([id number]) Interface, Out [employer] Prov Query - 02/27/2021 11:13 AM CDT No Careplan note found by Doutíssima. 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
--- OUTSIDE RECORDS SUMMARY | 2022-05-31 14:42 | XMS_ITS | Encounter Summary ---
:1945 Author Organization [facility] Address [address] [place] [address] Care Team Providers Name Role Phone Shiraz Simeon PA-C Primary Care Provider Reason for Visit Reason Comments Verbal Orders Encounter Details Date Type Department Care Team Description 06/30/2021 Telephone [facility] Shiraz Simeon PA-C Verbal Orders [address] [place] [address] [place] [address] [phone] (Wo rk) Social History Tobacco Use Types Packs/Day Years Used Date Smoking Tobacco: Every Day Cigarettes 0.3 Smokeless Tobacco: Never Alcohol Use Standard Drinks/Week Comments No 0 (1 standard drink = 0.6 oz pure alcoho l) Sex Assigned at Date Recorded Not on file documented as of this encounter Nursing Notes Belkis Paris LPN - 06/30/2021 3:17 PM CST Called home care and verbal order given to Bandar, as requested. BIT DESIGNER Shiraz Simeon PA-C - 06/30/2021 2:50 PM CST Please call in verbal order for home care BIT DESIGNER Belkis Paris LPN - 06/30/2021 1:32 PM CST Call received from Bandar at [facility] for verbal order from provider for home care, patient has changed insurance, will route to Provider. BIT DESIGNER Mindi Hughes - 06/30/2021 1:25 PM CST Orders - Home Care What type of home care is being requested? Discharge all home care services Why is this home care needed (symptom/diagnosis)? Switching insurance Start date of service: 06/30/2021 Frequency/Duration of service: N/a How would home care like to receive this order? Verbal Order Additional comments (related to the above concern): Is it okay to leave a detailed message on your voicemail? Yes Is there anything else I can help you with today? BIT DESIGNER documented in this encounter Plan of Treatment Not on filedocumented as of this encounter Visit Diagnoses Not on filedocumented in this encounter Care Teams Chip Mixing Machine Operator Relationship Specialty Start Date End Date Shiraz Simeon PA-C PCP - General 03/02/16 [address] [place], [place] [address] documented as of this encounter
--- OUTSIDE RECORDS SUMMARY | 2022-05-31 14:42 | XMS_ITS | Encounter Summary ---
:1945 Author Organization [employer] Address [address] [place] [address] Care Team Providers Name Role Phone Shiraz Simeon PA-C Primary Care Provider Reason for Referral Consult/Transfer Care (Routine) - New Request Specialty Diagnoses / Procedures Referred By Contact Refer red To Contact Diagnoses Anemia, unspecified type Rahul Hdez PA-C [address] [place] [address] Referral ID Status Reason Start Date Expiration Date Visits V isits Requested Authorized [id number] New Request 06/01/2021 08/31/2022 1 1 Scheduling Instructions Your provider has recommended an appoint ment with [facility]. You may call [phone] to schedule your appoi ntment. We suggest you call your health insurance company about your coverage an d benefits for this appointment. SORTER Procedure/Equipment (Routine) - Incomplete Specialty Diagnoses / Procedures Referred By Contact Refer red To Contact Diagnoses Cough Rahul Hdez PA-C Procedures XR Chest 2 Views [address] [place] [address] Referral ID Status Reason Start Date Expiration Date Visits V isits Requested Authorized [id number] Incomplete 06/01/2021 08/31/2022 1 1 SORTER Reason for Visit Reason Comments LOOSE STOOLS FATIGUE Cough Encounter Details Date Type Department Care Team Description 06/01/2021 Office Visit Rahul Walker Cough; Roxanna Marie PA-C Tachycardia; Care [address] Dehydration; [address] [facility] [place], [place] Vomiting, intractability of vomiting not specified, presence of nausea not specified, unspecified vomiting type; [place] [address] Nausea; [id number] Diarrhea, unspecified type; Anemia, unspecified type Social History Tobacco Use Types Packs/Day Years Used Date Smoking Tobacco: Every Day Cigarettes 0.3 Smokeless Tobacco: Never Alcohol Use Standard Drinks/Week Comments No 0 (1 standard drink = 0.6 oz pure alcoho l) Sex Assigned at Date Recorded Not on file documented as of this encounter Last Filed Vital Signs Vital Sign Reading Time Taken Comments Blood Pressure 100/62 06/01/2021 12:28 PM CLAM SORTER Pulse 124 06/01/2021 12:28 PM CLAM SORTER Temperature 36.6 ??C (97.8 ??F) 06/01/2021 12:28 PM CLAM SORTER Respiratory Rate 20 06/01/2021 12:28 PM CLAM SORTER Oxygen Saturation 97% 06/01/2021 12:28 PM CLAM SORTER Inhaled Oxygen Concentration - - Weight - - Height - - Body Mass Index - - documented in this encounter Patient Instructions Patient InstructionsKlRahul collier PA-C - 06/01/2021 11:00 AM CST 1. Call and make follow up appointment with family medicine for recheck of anemia. 2. Take iron supplements every other day. Increase iron in diet. 3. Push fluids (diluted Gatorade, Pedialyte, water...) 4. Continue Ensure. 5. Use Zofran for nausea. 6. If COVID positive, fill out online [facility] form for Monoclonal Antibodies. 7. If COVID negative, continue above and return to if worsening of symptoms. SORTER documented in this encounter Progress Notes Rahul Hdez PA-C - 06/01/2021 11:00 AM CST Ptr's son Merlin is with pt. nPt c/o loose stools, vomiting, nausea x 4 days. Pt feels shaky and weak.Pt has been sipping fluids. Last urinated one hour ago. Denies pain. Vomited x 2 today. 5-6 loose stools in past 24 hrs. Feels gassy. Pt also has cough x 4 days. Patient presents to urgent care with her son. She has had a four-day history nausea, vomiting and loose stools. She is very shaky and weak. She has been sipping fluids which she is able to keep down. She is urinating. In addition, she has had a cough for the last 4 days. She denies fever. She denies ahistory of asthma or pneumonia. She is not vaccinated for COVID. Remainder of review of systems is negative. Past Medical History: Patient Active Problem List Diagnosis ??? Generalized anxiety disorder (HRC) ??? Restless legs syndrome (RLS) ??? Chronic back pain ??? Iron deficiency anemia ??? History of gastric ulcer ??? Controlled substance agreement signed Adverse Drug Reactions: Ferrous sulfate Medications: gabapentin, omeprazole, sertraline, and traMADol Family History: Family History Problem Relation Age of Onset ??? Osteoarthritis Mother ??? Cataract Mother ??? Other (PUD) Mother ??? Abdominal Aortic Aneurysm Sister non-smoker, normotensive ??? Renal Failure Sister ??? High Cholesterol Brother ??? Hypertension Brother ??? Retinal Detachment Brother ??? Diabetes Negative Family History ??? Glaucoma Negative Family History ??? Macular Degeneration Negative Family History ??? Amblyopia/Strabismus Negative Family History Social History: Social History Tobacco Use ??? Smoking status: Current Every Day Smoker Packs/day: 0.25 Types: Cigarettes ??? Smokeless tobacco: Never Used Vaping Use ??? Vaping Use: Never used Substance Use Topics ??? Alcohol use: No ??? Drug use: No Review of Systems: All systems were reviewed and found to be negative except as noted above. OBJECTIVE: General: NAD Skin: Mucous membranes are moist, no sign of dehydration. Head: Normocephalic. Eyes: PERRLA, full EOM. External exams normal. Ears: Normal pinnae, canals. TM's:[normal] Nose: Patent, without deformity. Throat: Moist mucous membranes without lesions, erythema, or exudate. Respiratory: Normal respiratory effort. Lungs are clear with good breath sounds. Heart: RR without murmurs, rubs, or gallops. Abdomen: The abdomen was flat, soft and nontender without guarding rebound or masses. Vital Signs: BP 100/62 (BP Location: Left Arm, BP Cuff Size: Regular) Pulse (!) 124 Temp 36.6 ??C (97.8 ??F) (Oral) Resp 20 SpO2 97% Orders Placed This Encounter ??? 2019 Novel Coronavirus (COVID-19) - Collect in Clinic Today Labs: Results for orders placed or performed in visit on 06/01/21 Basic Metabolic Panel Result Value Ref Range Sodium 139 136 - 145 mmol/L Potassium 4.2 3.5 - 5.1 mmol/L Chloride 107 98 - 109 mmol/L CO2 19 (L) 20 - 29 mmol/L Anion Gap 13 7 - 16 mmol/L Calcium 9.0 8.4 - 10.4 mg/dL BUN 20 7 - 26 mg/dL Creatinine 0.70 0.55 - 1.02 mg/dL GFR, Estimated >60 >60 mL/min/1.73m2 Glucose 130 (H) 70 - 100 mg/dL Hours Fasting 18 Complete Blood Count-W/Diff Result Value Ref Range WBC 6.3 3.5 - 10.5 x10(9)/L RBC 3.59 (L) 3.90 - 5.03 x10(12)/L Hemoglobin 7.5 (L) 12.0 - 15.5 g/dL HCT 29.4 (L) 34.9 - 44.5 % MCV 81.9 80.0 - 100.0 fL MCH 20.9 (L) 27.6 - 33.3 pg MCHC 25.5 (L) 31.5 - 35.2 g/dL RDW 19.6 (H) 11.9 - 15.5 % Platelets 373 150 - 450 x10(9)/L Automated NRBC 1 (H) <=0 /100 WBC Neutrophil Absolute 5.0 1.7 - 7.0 10(9)/L Lymphocyte Absolute 0.5 (L) 1.0 - 4.8 10(9)/L Monocytes Absolute 0.5 0.2 - 0.9 10(9)/L Eosinophil Absolute 0.0 0.0 - 0.5 10(9)/L Basophil Absolute 0.0 0.0 - 0.3 10(9)/L Immature Gran % 4.1 (H) 0.0 - 0.5 % X-Rays: XR Chest 2 Views Result Date: 06/01/2021 COMPARISON: None. FINDINGS: Two views were obtained. The lungs and costophrenic angles are clear. Heart size and pulmonary vascularity are within normal limits. There is no evidence of pneumothorax or pleural effusion. Bony thorax is unremarkable. Impression: Normal. ASSESSMENT: 1. Cough 2. Tachycardia 3. Dehydration 4. Vomiting, intractability of vomiting not specified, presence of nausea not specified, unspecifiedvomiting type 5. Nausea 6. Diarrhea, unspecified type 7. Anemia, unspecified type Medical Decision Making: Differential diagnosis includes COVID, pneumonia, viral gastroenteritis, sepsis, dehydration and viral upper respiratory infection. COVID is pending at this time. Chest x-ray does not show evidence of pneumonia. Patient was given 1 L fluid in the clinic for dehydration. She was also given Zofran for nausea. Patient felt much improved after her liter of fluid. Patient's hemoglobin came back at 7.5. Looking through the patient's chart she has a long history of anemia. Her lasthemoglobin was 9.7. She has not been taking her iron supplements because it makes her nauseous. PLAN: At this point, we will continue to closely monitor the patient. She was given Zofran for nausea. Shebegan taking slow FE every other day. I would like her to be rechecked in the next few days by family medicine. She will be contacted if her COVID returns positive. I did discuss monoclonal antibodies if her COVID returns positive. She will return to urgent care or go to the ER with any worsening of her symptoms. Orders Placed This Encounter ??? Complete Blood Count -W/Diff ??? Basic Metabolic Panel ??? Complete Blood Count-W/Diff ??? XR Chest 2 Views ??? 2019 Novel Coronavirus (COVID-19) - Collect in Clinic Today ??? FAMILY MEDICINE CONSULT ADULT/PEDS (AMB) ??? 0.9% sodium chloride solution 1,000 mL ??? ondansetron (ZOFRAN) injection 4 mg ??? ferrous sulfate (SLOFE) 142 (45 Fe) MG TBCR ??? ondansetron (ZOFRAN-ODT) 4 MG disintegrating tablet There are no Patient Instructions on file for this visit. No orders of the defined types were placed in this encounter. RTC p.r.n. Total visit time was 35 minutes. SORTER documented in this encounter Nursing Notes Radha Morin RN - 06/01/2021 11:00 AM CST Ptr's son Merlin is with pt. nPt c/o loose stools, vomiting, nausea x 4 days. Pt feels shaky and weak.Pt has been sipping fluids. Last urinated one hour ago. Denies pain. Vomited x 2 today. 5-6 loose stools in past 24 hrs. Feels gassy. Pt also has cough x 4 days. SORTER Annelise Byrnes RN - 06/01/2021 11:00 AM CST SORTER Annelise Byrnes RN - 06/01/2021 11:00 AM CST SORTER documented in this encounter Plan of Treatment Scheduled Referrals Name Type Priority Associated Diagnoses Order S [facility] FAMILY MEDICINE Referral Routine Anemia, unspecified type Ordered: 06/01/2021 CONSULT ADULT/PEDS (AMB) documented as of this encounter Procedures Procedure Name Priority Date/Time Associated Comments Diagnosis CBC AND DIFFERENTIAL STAT 06/01/2021 1:08 PM Tachycar sonido Results for this PANEL CLAM SORTER Dehydration procedure are i n the results section. COMPLETE BLOOD STAT 06/01/2021 1:08 PM Tachycardia Results for this COUNT-W/DIFF CLAM SORTER Dehydration procedure are i n the results section. BASIC METABOLIC PANEL STAT 06/01/2021 1:08 PM Tachyca rdia Results for this CLAM SORTER Dehydration procedure are i n the results section. 2019 NOVEL Routine 06/01/2021 12:33 Cough Results for this CORONAVIRUS PM CLAM SORTER procedure are i n the results section. documented in this encounter Results XR Chest 2 Views (06/01/2021 1:09 PM CLAM SORTER) Anatomical Region Laterality Modality Chest, Lung Digital Radiography Specimen (Source) Anatomical Collection Method Collection Time Re ceived Time Location / / Volume Laterality 06/01/2021 12:57 PM CLAM SORTER Impressions 06/01/2021 1:12 PM CLAM SORTER COMPARISON: ??None. FINDINGS: ??Two views were obtained. ??T he lungs and costophrenic angles are clear. ??Heart size and pulmonary vascularity are within normal limits. ??There is no evidence of pneumothorax or pleural effusion. Bony thorax is unremarkable. Impression: Normal. Procedure Note OncTyler lindsey MD - 06/01/2021Forma tting of this note might be different from the original. IMPRESSION COMPARISON: None. FINDINGS: Two views were obtained. The l ungs and costophrenic angles are clear. Heart size and pulmonary vascularity are within normal limits. There is no evidence of pneumothorax or pleural effusion. Bony thorax is unremarkable. Impression: Normal. Rahul Hdez PA-C RAD GD (ABNORMAL) Complete Blood Count-W/Diff (06/01/2021 1:08 PM CLAM SORTER) [facility] gist Method Time Signature WBC 6.3 3.5 - 10.5 06/01/2021 [place] x10(9)/L 1:31 PM [facility] RBC 3.59 (L) 3.90 - 06/01/2021 [place] 5.03 1:31 PM [facility] x10(12)/L Hemoglobin 7.5 (L) 12.0 - 06/01/2021 [place] 15.5 g/dL 1:31 PM [facility] HCT 29.4 (L) 34.9 - 06/01/2021 [place] 44.5 % 1:31 PM [facility] MCV 81.9 80.0 - 06/01/2021 [place] 100.0 fL 1:31 PM [facility] MCH 20.9 (L) 27.6 - 06/01/2021 [place] 33.3 pg 1:31 PM [facility] MCHC 25.5 (L) 31.5 - 06/01/2021 [place] 35.2 g/dL 1:31 PM [facility] RDW 19.6 (H) 11.9 - 06/01/2021 [place] 15.5 % 1:31 PM [facility] Platelets 373 150 - 450 06/01/2021 [place] x10(9)/L 1:31 PM [facility] Automated NRBC 1 (H) <=0 /100 06/01/2021 [place] WBC 1:31 PM [facility] Neutrophil 5.0 1.7 - 7.0 06/01/2021 [place] Absolute 10(9)/L 1:31 PM [facility] Lymphocyte 0.5 (L) 1.0 - 4.8 06/01/2021 [place] Absolute 10(9)/L 1:31 PM [facility] Monocytes 0.5 0.2 - 0.9 06/01/2021 [place] Absolute 10(9)/L 1:31 PM [facility] Eosinophil 0.0 0.0 - 0.5 06/01/2021 [place] Absolute 10(9)/L 1:31 PM [facility] Basophil 0.0 0.0 - 0.3 06/01/2021 [place] Absolute 10(9)/L 1:31 PM [facility] Immature Gran % 4.1 (H) 0.0 - 0.5 06/01/2021 [place] % 1:31 PM [facility] Specimen Anatomical Collection Method / Collection Time Recei keyur Time (Source) Location / Volume Laterality Blood Venipuncture / 06/01/2021 1:08 06/01/2021 1:28 Unknown PM CLAM [facility]TER PM CLAM S[facility]TER Rahul Hdez PA-C LAB_1 Performing Organization Address City/State/ZIP Code Phon e Number [facility] [address] [place] [address] (ABNORMAL) Basic Metabolic Panel (06/01/2021 1:08 PM CLAM SORTER) Analysis Performed At Patho logist Time Signature Sodium 139 136 - 145 06/01/2021 [place] mmol/L 1:45 PM [facility] Potassium 4.2 3.5 - 5.1 06/01/2021 [place] mmol/L 1:45 PM [facility] Chloride 107 98 - 109 06/01/2021 [place] mmol/L 1:45 PM [facility] CO2 19 (L) 20 - 29 06/01/2021 [place] mmol/L 1:45 PM [facility] Anion Gap 13 7 - 16 06/01/2021 [place] mmol/L 1:45 PM [facility] Calcium 9.0 8.4 - 10.4 06/01/2021 [place] mg/dL 1:45 PM [facility] BUN 20 7 - 26 06/01/2021 [place] mg/dL 1:45 PM [facility] Creatinine 0.70 0.55 - 06/01/2021 [place] 1.02 mg/dL 1:45 PM [facility] GFR, Estimated >60 >60 06/01/2021 [place] mL/min/1.7 1:45 PM [facility] 3m2 Glucose 130 (H) 70 - 100 06/01/2021 [place] mg/dL 1:45 PM [facility] Comment: The given reference range is fo r the fasting state. Non-fasting reference range for glucose is 70 - 180 mg/dL. Hours Fasting 18 06/01/2021 1:45 PM [facility] Specimen Anatomical Collection Method / Collection Time Recei keyur Time (Source) Location / Volume Laterality Blood Venipuncture / 06/01/2021 1:08 06/01/2021 1:28 Unknown PM CLAM [facility] PM CLAM S[facility] Rahul Hdez PA-C LAB_1 Performing Organization Address City/State/ZIP Code Phon e Number [facility] [address] [place] [address] (ABNORMAL) 2018 Novel Coronavirus (COVID-19) - Collect in Clinic Today (06/01/2021 12:33 PM CLAM SORTER) [facility] Method Time Signature COVID-19 Detected Not 06/02/2021 [facility] Interpretation (A) Detected 6:24 PM [facility] Source Nares, left 06/02/2021 [facility] and right 6:24 PM [facility] Specimen Anatomical Collection Method Collection Time Receive d Time (Source) Location / / Volume Laterality Swab (Source ENTIRE ANTERIOR Non-blood 06/01/2021 12:33 06/01/20 21 1:26 Required) NARIS / Unknown Collection / PM [facility] PM [facility] Unknown Narrative [facility] - 06/02/2021 6:24 PM CLAM SORTER Test performed by Drawer In Mediated Amplification. TMA has been shown to be equivalent to commercial real-time PCR t ests. This test has been authorized by the FDA under an Emergency Use Authorization (EUA) for use by authorized laboratories. [facility] LAB_1 Performing Organization Address City/State/ZIP Code Phon e Number [facility] [address] [address] documented in this encounter Visit Diagnoses Diagnosis Cough Tachycardia Tachycardia, unspecified Dehydration Vomiting, intractability of vomiting not specified, presence of nausea not specified, unspecified vomiting type Nausea Nausea alone Diarrhea, unspecified type Anemia, unspecified type Cough Plan of Care - Annelise Byrnes RN - 06/01/2021 1:59 PM CST Nausea resolved after Zofran, no signs or symptoms of reaction, IV intact. SORTER documented in this encounter Administered Medications Inactive Administered Medications - up to 3 most recent administrations Medication Order MAR Action Action Date Dose Rate Site 0.9% sodium chloride solution Given 06/01/2021 1:20 PM CLAM S[facility]TER 1,000 mL 1,000 mL 1,000 mL, Intravenous, ONCE, On Sun06/01/21 at 1315, For 1 dose ondansetron (ZOFRAN) injection 4 mg Given 06/01/2021 1:25 PM CLAM SORTER 4 mg 4 mg, Intravenous, ONCE, On Sun06/01/21 at 1315, For 1 dose documented in this encounter Additional Health Concerns Infection Onset Date Last Indicated Resolved Time R/O COVID19 06/01/2021 06/01/2021 06/02/2021 6:24 PM CLAM SORTER documented as of this encounter Care Teams Railroad Detective Relationship Specialty Start Date End Date Shiraz Simeon PA-C PCP - General 03/02/16 [address], [place] [address] documented as of this encounter
--- OUTSIDE RECORDS SUMMARY | 2022-05-31 14:42 | XMS_ITS | Encounter Summary ---
:1945 Author Organization [employer] Address [address] [place] [address] Care Team Providers Name Role Phone Shiraz Simeon PA-C Primary Care Provider Reason for Visit Reason Comments Refill traMADol (ULTRAM) 50 MG tabl et [Pharmacy Med Name: TRAMADOL 50MG TABLETS] Encounter Details Date Type Department Care Team Description 05/10/2021 Refill [facility] Shiraz Simeon PA-C Refill (traMADol [address] (ULTRAM) 50 MG tablet [place] [address] [place] [address] [Pharmacy Med Name: [phone] (Wo rk) TRAMADOL 50MG TABLETS]) Social History Tobacco Use Types Packs/Day Years Used Date Smoking Tobacco: Every Day Cigarettes 0.3 Smokeless Tobacco: Never Alcohol Use Standard Drinks/Week Comments No 0 (1 standard drink = 0.6 oz pure alcoho l) Sex Assigned at Date Recorded Not on file documented as of this encounter Nursing Notes Shiraz Simeon PA-C - 05/11/2021 5:52 PM CST faxed UE KILN DRAWER Interface, Out Surescripts Prov Query - 05/10/2021 9:58 AM CST traMADol (ULTRAM) 50 MG tablet [Pharmacy Med Name: TRAMADOL 50MG TABLETS] Medication started: 09/27/2015 Last ordered by SHIRAZ SIMEON: 04/05/2021 (35 days ago) QTY: 90, Refills: 0, Sig: take 1 tablet by mouth every 8 hours as needed for pain. (unchanged) -> Medication cannot be delegated. Last qualifying visit: 04/05/2021 (with SHIRAZ SIMEON) Next scheduled visit: None Powered by [employer], Reference: [id number], 05/10/2021 9:58:06 AM BISQUE KILN DRAWER, Clif:ARIANNE VALDEZ ([id number]) UE KILN DRAWER Interface, Out SurescShotlst Prov Query - 05/10/2021 9:58 AM CST No Careplan note found by airpim. 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
--- OUTSIDE RECORDS SUMMARY | 2022-05-31 14:42 | XMS_ITS | Encounter Summary ---
:1945 Author Organization [employer] Address [address] [place] [address] Care Team Providers Name Role Phone Shiraz Simeon PA-C Primary Care Provider Reason for Visit Reason Comments Refill traMADol (ULTRAM) 50 MG tabl et [Pharmacy Med Name: TRAMADOL 50MG TABLETS] Encounter Details Date Type Department Care Team Description 04/27/2022 Refill [facility] Shiraz Simeon PA-C Refill (traMADol [address] (ULTRAM) 50 MG tablet [place] [address] [place] [address] [Pharmacy Med Name: [phone] (Wo rk) TRAMADOL 50MG TABLETS]) Social History Tobacco Use Types Packs/Day Years Used Date Smoking Tobacco: Every Day Cigarettes 0.3 Smokeless Tobacco: Never Alcohol Use Standard Drinks/Week Comments No 0 (1 standard drink = 0.6 oz pure alcoho l) Sex Assigned at Date Recorded Not on file documented as of this encounter Nursing Notes Interface, Out Surescripts Prov Query - 04/27/2022 11:06 AM CDT traMADol (ULTRAM) 50 MG tablet [Pharmacy Med Name: TRAMADOL 50MG TABLETS] Medication started: 07/25/2016 Last ordered by SHIRAZ SIMEON: 03/14/2022 (44 days ago) QTY: 90, Refills: 0, Sig: take 1 tablet (50 mg) by mouth every 8 hours as needed for pain. (changed but equivalent) -> Medication cannot be delegated. Last qualifying visit: 03/14/2022 (with SHIRAZ SIMEON) Next scheduled visit: None [facility] [employer] Embedded Refills, Reference: [id number], 04/27/2022 11:05:58 AM CDT, Pool: ARIANNE REFILL ([id number]) E PLANER OPERATOR HELPER Interface, Out Lazada [place] Prov Query - 04/27/2022 11:06 AM CDT No Careplan note found by [employer]. 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
--- OUTSIDE RECORDS SUMMARY | 2022-05-31 14:42 | XMS_ITS | Encounter Summary ---
:1945 Author Organization [employer] Address [address] [place] [address] Care Team Providers Name Role Phone Shiraz Simeon PA-C Primary Care Provider Reason for Visit Reason Comments Orders Needed Encounter Details Date Type Department Care Team Description 06/17/2021 Telephone [facility] Medic[facility] e Shiraz Simeon PA-C Orders Needed [address] [place] [address] [place] [address] [phone] (Wo rk) Social History Tobacco Use Types Packs/Day Years Used Date Smoking Tobacco: Every Day Cigarettes 0.3 Smokeless Tobacco: Never Alcohol Use Standard Drinks/Week Comments No 0 (1 standard drink = 0.6 oz pure alcoho l) Sex Assigned at Date Recorded Not on file documented as of this encounter Nursing Notes Shiraz Simeon PA-C - 06/22/2021 5:20 PM CST OK, verbal order given. S REPRESENTATIVE CONSULTANT Peggy Diallo MA - 06/20/2021 9:55 AM CST Verbal order given. Please sign. S REPRESENTATIVE CONSULTANT Dorys Calles - 06/17/2021 4:27 PM CST Orders - Home Care What type of home care is being requested? Occupational Therapy Why is this home care needed (symptom/diagnosis)? ADL, therapeutic exercise/activity Start date of service: 06/17/21 Frequency/Duration of service: 1 for 3 weeks, 2 times for 2 weeks How would home care like to receive this order? Verbal Order Additional comments (related to the above concern): Is it okay to leave a detailed message on your voicemail? Yes Is there anything else I can help you with today? No S REPRESENTATIVE CONSULTANT documented in this encounter Plan of Treatment Not on filedocumented as of this encounter Visit Diagnoses Not on filedocumented in this encounter Additional Health Concerns Infection Onset Date Last Indicated Resolved Time COVID19 06/01/2021 06/01/2021 06/21/2021 3:17 AM SALES REPRESENTATIVE CONSULTANT documented as of this encounter Care Teams Biomedical Engineer Relationship Specialty Start Date End Date Shiraz Simeon PA-C PCP - General 03/02/[address] [place] [address] documented as of this encounter
--- OUTSIDE RECORDS SUMMARY | 2022-05-31 14:42 | XMS_ITS | Encounter Summary ---
:1945 Author Organization [employer] Address [address] [place] [address] Care Team Providers Name Role Phone Shiraz Simeon PA-C Primary Care Provider Reason for Visit Reason Comments Refill gabapentin (NEURONTIN) 400 M G capsule [Pharmacy Med Name: GABAPENTIN 400MG CAPSULES] Encounter Details Date Type Department Care Team Description 07/11/2020 Refill [facility] Shiraz Simeon PA-C Refill (gabapentin [address] (NEURONTIN) 400 [place] [address] [place] [address] capsule [Pharmacy Med [phone] (Wo rk) Name: GABAPENTIN 400MG CAPSULES] ) Social History Tobacco Use Types Packs/Day Years Used Date Smoking Tobacco: Every Day Cigarettes 0.3 Smokeless Tobacco: Never Alcohol Use Standard Drinks/Week Comments No 0 (1 standard drink = 0.6 oz pure alcoho l) Sex Assigned at Date Recorded Not on file documented as of this encounter Nursing Notes Shiraz Simeon PA-C - 07/12/2020 3:07 PM CST faxed NING OPERATIONS SPECIALIST Interface, Out Surescripts Prov Query - 07/11/2020 9:44 AM CST gabapentin (NEURONTIN) 400 MG capsule [Pharmacy Med Name: GABAPENTIN 400MG CAPSULES] Medication started: 08/25/2014 Last ordered by SHIRAZ SIMEON: 08/04/2019 (342 days ago) QTY: 360, Refills: 2, Sig: take four capsules by mouth every evening for restless leg syndrome (changed) -> Unable to determine if sig has changed, review required. -> Medication cannot be delegated. Last qualifying visit: 01/16/2020 (with SHIRAZ SIMEON) Next scheduled visit: None Powered by [employer], Reference: [id number], 07/11/2020 9:44:08 AM Kyler LALA ([id number]) Electronically signed by Interface, Out ShellyCloudBolt SoftwarecatherineStudent Loan Hero Prov Query at 07/12/2020 3:07 PM LEARNING OPERATIONS SPECIALIST documented in this encounter Plan of Treatment Not on filedocumented as of this encounter Visit Diagnoses Diagnosis Restless legs syndrome (RLS) documented in this encounter Care Teams Inseamer Relationship Specialty Start Date End Date Shiraz Simeon PA-C PCP - General 03/02/16 [address] [place], [place] [address] documented as of this encounter
--- OUTSIDE RECORDS SUMMARY | 2022-05-31 14:42 | XMS_ITS | Encounter Summary ---
:1945 Author Organization [employer] Address [address] [place] [address] Care Team Providers Name Role Phone Shiraz Simeon PA-C Primary Care Provider Reason for Visit Reason Comments Phone Visit MEDICATION CHECK Encounter Details Date Type Department Care Team Description 10/09/2019 Phone Visit [place] [facility] Shiraz Simeon Chronic right-sided low [address] PA-C back pain with [place] [address] [address] right-sided sciatica [phone] [place] [address] (Primary Dx) Social History Tobacco Use Types Packs/Day Years Used Date Smoking Tobacco: Every Day Cigarettes 0.3 Smokeless Tobacco: Never Alcohol Use Standard Drinks/Week Comments No 0 (1 standard drink = 0.6 oz pure alcoho l) Sex Assigned at Date Recorded Not on file documented as of this encounter Progress Notes Shiraz Simeon PA-C - 10/09/2019 10:20 AM CDT SUBJECTIVE: This 74 y.o. female presents today for phone visit to address the following concern(s): Tramadol medication check She has chronic right low back pain and takes tramadol once daily to help manage her pain. She has had PUD in the past and is not to use NSAIDs, so this has been the mainstay of her pain relief, along with acetaminophen. Her pain is managed well. She is able to do the activities she needs and wants todo. 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 Exercises regularly. She denies any adverse effects from tramadol, including constipation, confusion, fatigue, sedation, and nausea. She is sheltering at home during the pandemic, but her children and grandchildren all live close by. She is able to talk to them regularly, and they see each other from a safe distance on Sundays. She is not suffering any increasing anxiety or depression during this time. No other questions or concerns for me today. ASSESSMENT/PLAN: Shruti was seen today for phone visit and medication check. Diagnoses and all orders for this visit: Chronic right-sided low back pain with right-sided sciatica - traMADol (ULTRAM) 50 MG tablet; Take 1 Tablet by mouth every 8 hours as needed for Pain. [place] ORTHOP[employer] SALESPERSON reivewed and negative for concern. She may have a refill after 90 days. This visit was conducted via phone. Location of clinician: home Location of patient: home Time spent on phone in contact with patient, if applicable: 11 minutes documented in this encounter Plan of Treatment Not on filedocumented as of this encounter Visit Diagnoses Diagnosis Chronic right-sided low back pain with r ight-sided sciatica - Primary documented in this encounter Care Teams Wirer Passenger Car Relationship Specialty Start Date End Date Shiraz Simeon PA-C PCP - General 03/02/[address] [place] [address] documented as of this encounter
--- OUTSIDE RECORDS SUMMARY | 2022-05-31 14:42 | XMS_ITS | Encounter Summary ---
:1945 Author Organization [employer] Address [address] [place] [address] Care Team Providers Name Role Phone Shiraz Simeon PA-C Primary Care Provider Reason for Visit Reason Comments Refill omeprazole (PRILOSEC) 20 MG capsule [Pharmacy Med Name: OMEPRAZOLE 20MG CAPSULES]; sertraline (ZOLOF T) 100 MG tablet [Pharmacy Med Name: SERTRALINE 100MG TABLETS] Encounter Details Date Type Department Care Team Description 06/19/2021 Refill [facility] Shiraz Simeon PA-C Refill (omeprazole [address] (PRILOSEC) [place] [address] [place] [address] [Pharmacy Med Name: [phone] (Wo rk) OMEPRAZOLE 20MG CAPSULES] ; sertraline (ZOLOFT) 100 MG tablet [Pharmacy Med N guilherme: SERTRALINE 100M G TABLETS]) Social History Tobacco Use Types Packs/Day Years Used Date Smoking Tobacco: Every Day Cigarettes 0.3 Smokeless Tobacco: Never Alcohol Use Standard Drinks/Week Comments No 0 (1 standard drink = 0.6 oz pure alcoho l) Sex Assigned at Date Recorded Not on file documented as of this encounter Nursing Notes Ara Burns, RN - 06/22/2021 8:32 AM CST Requested Prescriptions Refused Prescriptions Disp Refills ??? omeprazole (PRILOSEC) 20 MG capsule [Pharmacy Med Name: OMEPRAZOLE 20MG CAPSULES] 90 Capsule 3 Sig: TAKE 1 CAPSULE BY MOUTH DAILY. TAKE 1 HOUR BEFORE A MEAL Refused By: ARA BURNS Reason for Refusal: Request Already Responded To By Other Means ??? sertraline (ZOLOFT) 100 MG tablet [Pharmacy Med Name: SERTRALINE 100MG TABLETS] 90 Tablet 3 Sig: TAKE 1 TABLET BY MOUTH DAILY Refused By: ARA BURNS Reason for Refusal: Request Already Responded To By Other Means MBLER 1ST SHIFT Interface, Out Surescripts Prov Query - 06/19/2021 9:49 AM CST omeprazole (PRILOSEC) 20 MG capsule [Pharmacy Med Name: OMEPRAZOLE 20MG CAPSULES] Medication started: 07/25/2016 Last ordered by SHIRAZ SIMEON: 04/05/2021 (75 days ago) QTY: 90, Refills: 3, Sig: take 1 capsule by mouth daily. take 1 hour before a meal. (unchanged) -> The patient is requesting a renewal from a different pharmacy. -> Refill x 12 months, qty: 90, refills: 3 (until due for an office visit) Last qualifying visit: 04/05/2021 (with SHIRAZ SIMEON) Next scheduled visit: None Powered by [employer] by [employer], Reference: [id number], 06/19/2021 9:49:16 AM ASSEMBLER 1ST SHIFT, Pool:ARIANNE REFILL ([id number]) sertraline (ZOLOFT) 100 MG tablet [Pharmacy Med Name: SERTRALINE 100MG TABLETS] Medication started: 03/08/2016 Last ordered by SHIRAZ SIMEON: 04/05/2021 (75 days ago) QTY: 90, Refills: 3, Sig: take 1 tablet by mouth daily. (unchanged) -> The patient is requesting a renewal from a different pharmacy. -> Refill x 12 months, qty: 90, refills: 3 (until due for an office visit) Last qualifying visit: 04/05/2021 (with SHIRAZ SIMEON) Next scheduled visit: None Age: 75 Powered by [employer] by [employer], Reference: [id number], 06/19/2021 9:49:16 AM ASSEMBLER 1ST SHIFT, Pool:ARIANNE REFILL ([id number]) Electronically signed by Interface, Out SurepanOpenriSKY Network Technology Prov Query at 06/22/2021 8:33 AM ASSEMBLER 1ST SHIFT documented in this encounter Plan of Treatment Not on filedocumented as of this encounter Visit Diagnoses Diagnosis History of gastric ulcer Personal history of other diseases of di gestive system Generalized anxiety disorder (HRC) Generalized anxiety disorder documented in this encounter Additional Health Concerns Infection Onset Date Last Indicated Resolved Time COVID19 06/01/2021 06/01/2021 06/21/2021 3:17 AM ASSEMBLER 1ST SHIFT documented as of this encounter Care Teams Vehicle Leasing And Rental Manager Relationship Specialty Start Date End Date Shiraz Simeon PA-C PCP - General 03/02/16 [address] [place], [place] [address] documented as of this encounter
--- OUTSIDE RECORDS SUMMARY | 2022-05-31 14:42 | XMS_ITS | Encounter Summary ---
:1945 Author Organization [employer] Address [address] [place] [address] Care Team Providers Name Role Phone Shiraz Simeon PA-C Primary Care Provider Reason for Visit Reason Comments Refill sertraline (ZOLOFT) 100 MG t ablet [Pharmacy Med Name: SERTRALINE 100MG TABLETS]; omeprazole (PRILOS EC) 20 MG capsule [Pharmacy Med Name: OMEPRAZOLE 20MG CAPSULES] Encounter Details Date Type Department Care Team Description 07/11/2020 Refill [facility] Shiraz Simeon PA-C Refill (sertraline [address] (ZOLOFT) [address] [place] [address] [place] [address] [Pharmacy Med Name: [phone] (Wo rk) SERTRALINE 100MG TABLETS]; omeprazole (PRILOSEC) 20 M G capsule [Pharmacy Med N guilherme: OMEPRAZOLE 20MG CAPSULES]) Social History Tobacco Use Types Packs/Day Years Used Date Smoking Tobacco: Every Day Cigarettes 0.3 Smokeless Tobacco: Never Alcohol Use Standard Drinks/Week Comments No 0 (1 standard drink = 0.6 oz pure alcoho l) Sex Assigned at Date Recorded Not on file documented as of this encounter Nursing Notes Jamey Duckworth, RN - 07/12/2020 10:44 AM CST Renewed medication per medication refill protocol. Requested Prescriptions Pending Prescriptions Disp Refills omeprazole (PRILOSEC) 20 MG capsule [Pharmacy Med Name: OMEPRAZOLE 20MG CAPSULES] 90 Capsule 2 Sig: TAKE 1 CAPSULE BY MOUTH DAILY. TAKE 1 HOUR BEFORE A MEAL sertraline (ZOLOFT) 100 MG tablet [Pharmacy Med Name: SERTRALINE 100MG TABLETS] 90 Tablet 2 Sig: TAKE 1 TABLET BY MOUTH DAILY. RAFT BODY REPAIRER Interface, Out Surescripts Prov Query - 07/11/2020 9:44 AM CST omeprazole (PRILOSEC) 20 MG capsule [Pharmacy Med Name: OMEPRAZOLE 20MG CAPSULES] Medication started: 01/27/2015 Last ordered by SHIRAZ SIMEON: 04/29/2019 (439 days ago) QTY: 90, Refills: 3, Sig: take 1 capsule bymouth daily. take 1 hour before a meal. (unchanged) -> Refill x 9 months, qty: 90, refills: 2 (until due for an office visit) Last qualifying visit: 01/16/2020 (with SHIRAZ SIMEON) Next scheduled visit: None Powered by [facility], Reference: [id number], 07/11/2020 9:44:08 AM SPIKE, Pool: ARIANNE REFILL ([id number]) sertraline (ZOLOFT) 100 MG tablet [Pharmacy Med Name: SERTRALINE 100MG TABLETS] Medication started: 01/27/2015 Last ordered by SHIRAZ SIMEON: 04/29/2019 (439 days ago) QTY: 90, Refills: 3, Sig: take 1 tablet by mouth daily. (unchanged) -> Refill x 9 months, qty: 90, refills: 2 (until due for an office visit) Last qualifying visit: 01/16/2020 (with SHIRAZ SIMEON) Next scheduled visit: None Age: 74 Powered by [employer], Reference: [id number], 07/11/2020 9:44:08 AM AIRCRAFT BODY REPAIRER, Pool: ARIANNE REFILL ([id number]) RAFT BODY REPAIRER documented in this encounter Plan of Treatment Not on filedocumented as of this encounter Visit Diagnoses Diagnosis Restless legs syndrome (RLS) History of gastric ulcer Personal history of other diseases of di gestive system Generalized anxiety disorder (HRC) Generalized anxiety disorder documented in this encounter Care Teams Production Graphic Designer Relationship Specialty Start Date End Date Shiraz Simeon PAMisbahC PCP - General 03/02/16 [address] [place], [place] [address] documented as of this encounter
--- OUTSIDE RECORDS SUMMARY | 2022-05-31 14:42 | XMS_ITS | Encounter Summary ---
:1945 Author Organization [employer] Address [address] [place] [address] Care Team Providers Name Role Phone Shiraz Simeon PA-C Primary Care Provider Reason for Visit Reason Comments Refill traMADol (ULTRAM) 50 MG tabl et [Pharmacy Med Name: TRAMADOL 50MG TABLETS] Encounter Details Date Type Department Care Team Description 07/22/2019 Refill [facility] Shiraz Simeon PA-C Refill (traMADol [address] (ULTRAM) 50 MG tablet [place] [address] [place] [address] [Pharmacy Med Name: [phone] (Wo rk) TRAMADOL 50MG TABLETS]) Social History Tobacco Use Types Packs/Day Years Used Date Smoking Tobacco: Every Day Cigarettes 0.3 Smokeless Tobacco: Never Alcohol Use Standard Drinks/Week Comments No 0 (1 standard drink = 0.6 oz pure alcoho l) Sex Assigned at Date Recorded Not on file documented as of this encounter Nursing Notes Hortencia Llamas LPN - 07/22/2019 4:17 PM CST Pt notified. She did not request- pharmacy must've. OL PROGRAM DIRECTOR Shiraz Simeon PA-C - 07/22/2019 3:58 PM CST Too early for refill, not due to fill until earliest date of 07/30/2019 OL PROGRAM DIRECTOR Interface, Out Teleborder Prov Query - 07/22/2019 8:21 AM CST traMADol (ULTRAM) 50 MG tablet [Pharmacy Med Name: TRAMADOL 50MG TABLETS] Medication started: 12/24/2013 Last ordered by SHIRAZ SIMEON: 07/01/2019 (21 days ago) QTY: 90, Refills: 0, Sig: take one tablet bymouth three times a day as needed for pain (unchanged) -> Medication cannot be delegated. Last qualifying visit: 06/05/2019 (with SHIRAZ SIMEON) Next scheduled visit: None Powered by [employer], Reference: [id number], 07/22/2019 8:21:33 AM SCHOOL PROGRAM DIRECTOR, Pool: ARIANNE REFILL ([id number]) OL PROGRAM DIRECTOR Interface, Out Teleborder Prov Query - 07/22/2019 8:21 AM CST No Careplan note found by [employer]. OL PROGRAM DIRECTOR documented in this encounter Plan of Treatment Not on filedocumented as of this encounter Visit Diagnoses Diagnosis Chronic right-sided low back pain with r ight-sided sciatica documented in this encounter Care Teams Clinical Data Associate Relationship Specialty Start Date End Date Shiraz Simeon PA-C PCP - General 03/02/16 [address] [place] [address] documented as of this encounter
--- OUTSIDE RECORDS SUMMARY | 2022-05-31 14:42 | XMS_ITS | Encounter Summary ---
:1945 Author Organization [employer] Address [address] [place] [address] Care Team Providers Name Role Phone Shiraz Simeon PA-C Primary Care Provider Reason for Visit Reason Comments Refill sertraline (ZOLOFT) 100 MG t ablet [Pharmacy Med Name: SERTRALINE 100MG TABLETS]; omeprazole (PRILOS EC) 20 MG capsule [Pharmacy Med Name: OMEPRAZOLE 20MG CAPSULES] Encounter Details Date Type Department Care Team Description 03/22/2021 [facility] Refill (sertraline [address] (ZOLOFT) 100 [place] [address] [place] [address] [Pharmacy Med Name: [phone] (Wo rk) SERTRALINE 100MG TABLETS]; omeprazole (PRILOSEC) [...] documented as of this encounter Nursing Notes Unique Martinez RN - 03/25/2021 11:19 AM CDT 90 day supply given per Emergency Refill Standing Order. Unique Martinez RN 03/25/2021, 11:19 AM Interface, Out Surescripts Prov Query - 03/22/2021 9:39 AM CDT omeprazole (PRILOSEC) 20 MG capsule [Pharmacy Med Name: OMEPRAZOLE 20MG CAPSULES] Medication started: 07/25/2016 Last ordered by SHIRAZ SIMEON: 07/12/2020 (253 days ago) QTY: 90, Refills: 2, Sig: take 1 capsule bymouth daily. take 1 hour before a meal (unchanged) -> An office visit is overdue (performed over 14 months ago, required every 12 months). Last qualifying visit: 01/16/2020 (with SHIRAZ SIMEON) Next scheduled visit: None Powered by [employer], Reference: [id number], 03/22/2021 9:39:45 AM CDT, Pool:ARIANNE REFILL ([id number]) sertraline (ZOLOFT) 100 MG tablet [Pharmacy Med Name: SERTRALINE 100MG TABLETS] Medication started: 03/08/2016 Last ordered by SHIRAZ SIMEON: 07/12/2020 (253 days ago) QTY: 90, Refills: 2, Sig: take 1 tablet by mouth daily. (unchanged) -> An office visit is overdue (performed over 14 months ago, required every 12 months). Last qualifying visit: 01/16/2020 (with SHIRAZ SIMEON) Next scheduled visit: None Age: 75 Powered by [employer], Reference: [id number], 03/22/2021 9:39:45 AM CDT, Pool:ARIANNE VALDEZ ([id number]) documented in this encounter Plan of Treatment Not on filedocumented as of this encounter Visit Diagnoses Not on filedocumented in this encounter Care Teams Professional Nursing Tutor Relationship Specialty Start Date End Date Shiraz Simeon PA-C PCP - General 03/02/16 [address] [place] [address] documented as of this encounter
--- OUTSIDE RECORDS SUMMARY | 2022-05-31 14:42 | XMS_ITS | Encounter Summary ---
:1945 Author Organization [employer] Address [address] [place] [address] Care Team Providers Name Role Phone Shiraz Simeon PA-C Primary Care Provider Reason for Visit Reason Comments Refill gabapentin (NEURONTIN) 400 M G capsule [Pharmacy Med Name: GABAPENTIN 400MG CAPSULES] Encounter Details Date Type Department Care Team Description 04/01/2021 Refill [facility] Butch Lee, Refill (gabapentin [address] [place] (NEURONTIN) [address] [place] [address] capsule [Pharmacy Med [phone] [place], [place] [address] Name: GABAPENTIN 400MG [phone] (Wo rk) CAPSULES]) Social History Tobacco Use Types Packs/Day Years Used Date Smoking Tobacco: Every Day Cigarettes 0.3 Smokeless Tobacco: Never Alcohol Use Standard Drinks/Week Comments No 0 (1 standard drink = 0.6 oz pure alcoho l) Sex Assigned at Date Recorded Not on file documented as of this encounter Nursing Notes Shiraz Simeon PA-C - 04/06/2021 1:08 PM CDT faxed Butch Lee PA-C - 04/01/2021 9:47 AM CDT Routing to PCP Butch Lee PA-C 9:47 AM 04/01/2021 Interface, Out ASP64 Prov Query - 04/01/2021 9:43 AM CDT gabapentin (NEURONTIN) 400 MG capsule [Pharmacy Med Name: GABAPENTIN 400MG CAPSULES] Medication started: 12/14/2015 Last ordered by BUTCH LEE: 03/24/2021 (8 days ago) QTY: 56, Refills: 0, Sig: take 4 capsules by mouth every evening for 14 days. take 4 capsules by mouth every evening for restless leg syndrome (changed) -> Unable to determine if sig has changed, review required. -> Medication cannot be delegated. -> A qualifying visit was not found within the last 2 years. Last qualifying visit: None (A recent visit (in Family Practice with SHIRAZ SIMEON) was found) Next scheduled visit: None Powered by [employer] by [employer], Reference: [id number], 04/01/2021 9:43:20 AM CDT, Pool: ARIANNE REFILL ([id number]) documented in this encounter Plan of Treatment Not on filedocumented as of this encounter Visit Diagnoses Diagnosis Restless legs syndrome (RLS) documented in this encounter Care Teams Pharmacy Tech Relationship Specialty Start Date End Date Shiraz Simeon PA-C PCP - General 03/02/16 [address] [place] [address] documented as of this encounter
--- OUTSIDE RECORDS SUMMARY | 2022-05-31 14:43 | XMS_ITS | Encounter Summary ---
:1945 [address] [facility] [facility] Address [address] [place] [address] Care Team Providers Name Role Phone Shiraz Simeon PA-C Primary Care Provider Reason for Visit Reason Comments Prior Authorization Request Encounter Details Date Type Department Care Team Description 10/04/2018 Telephone [facility] Shiraz Simeon, Prior Authorization [address] PA-C Request [place] [address] [address] [phone] [place] [id number] Social History Tobacco Use Types Packs/Day Years Used Date Smoking Tobacco: Every Day Cigarettes 0.3 30 Smokeless Tobacco: Never Comments: Smoking History Packs/day: Alcohol Use Standard Drinks/Week Comments No 0 (1 standard drink = 0.6 oz pure alcoho l) Sex Assigned at Date Recorded Not on file documented as of this encounter Nursing Notes Marline Rogel LPN - 10/04/2018 1:07 PM CDT ZAHIDA approved for Tramadol. Pt Notified. documented in this encounter Plan of Treatment Not on filedocumented as of this encounter Visit Diagnoses Not on filedocumented in this encounter Care Teams Tar Chaser Relationship Specialty Start Date End Date Shiraz Simeon PA-C PCP - General 03/02/[address] [place] [address] documented as of this encounter
--- OUTSIDE RECORDS SUMMARY | 2022-05-31 14:43 | XMS_ITS | Encounter Summary ---
:1945 Author Organization [employer] Address [address] [place] [address] Care Team Providers Name Role Phone Shiraz Simeon PA-C Primary Care Provider Encounter Details Date Type Department Care Team Description 07/25/2016 Lab Visit [place] [facility] Iron deficiency anemia, [address] unspecified iron deficiency [place] [address] anemia type [phone] Social History Tobacco Use Types Packs/Day Years [...] Name Priority Date/Time Associated Diagnosis Comme nts HEMOGLOBIN, BLOOD Routine 07/25/2016 11:49 AM Iron deficiency Results for this ACCOUNTING SUPERVISOR anemia, unspecified procedur e are in iron deficiency the results anemia type section. FERRITIN Routine 07/25/2016 11:49 AM Iron deficiency Resul ts for this ACCOUNTING SUPERVISOR anemia, unspecified procedur e are in iron deficiency the results anemia type section. documented in this encounter Results (ABNORMAL) Hemoglobin (07/25/2016 11:49 AM ACCOUNTING SUPERVISOR) P athologist Signature Hemoglobin 10.1 (L) 11.8 - 15.5 PN SOFT g/dL Specimen Anatomical Collection Method Collection Time Receive d Time (Source) Location / / Volume Laterality 07/25/2016 11:49 07/25/2016 AM ACCOUNTING SUPERVISOR 11:49 AM ACCOUNTING SUPERVISOR Narrative PN SOFT - 07/25/2016 12:11 PM ACCOUNTING SUPERVISOR Performed at [facility], [address] [place] [address] CLIA number [id number] Shiraz Simeon PA-C LAB_1 Performing Organization Address City/[facility]/ZIP Code Phon e Number PN SOFT [address] [place] [address] Ferritin (07/25/2016 11:49 AM ACCOUNTING SUPERVISOR) P athologist Signature Ferritin Serum 9 9 - 204 PN SOFT ng/mL Specimen Anatomical Collection Method Collection Time Receive d Time (Source) Location / / Volume Laterality 07/25/2016 11:49 07/25/2016 3:26 AM ACCOUNTING SUPERVISOR PM ACCOUNTING SUPERVISOR Narrative PN SOFT - 07/25/2016 4:19 PM ACCOUNTING SUPERVISOR Performed at [facility], [address] [place] [address] CLIA number [id number] Shiraz Simeon PA-C LAB_1 Performing Organization Address [facility] Phon e Number PN SOFT [address] [place] [address] documented in this encounter Visit Diagnoses Diagnosis Iron deficiency anemia, unspecified iron deficiency anemia type documented in this encounter Care Teams Forms Analyst Relationship Specialty Start Date End Date Shiraz Simeon PA-C PCP - General 03/02/[address] [place] [address] documented as of this encounter
--- OUTSIDE RECORDS SUMMARY | 2022-05-31 14:43 | XMS_ITS | Encounter Summary ---
:1945 Author Organization [employer] Address [address] [place] [address] Care Team Providers Name Role Phone Shiraz Simeon PA-C Primary Care Provider Encounter Details Date Type Department Care Team Description 04/08/2015 Immunization [facility] Need for influenza [address] vaccination (Primary Dx) [place] [phone] Social History Tobacco Use Types Packs/Day Years Used Date Smoking Tobacco: Never Assessed Sex Assigned at Date Recorded Not on file documented as of this encounter Plan of Treatment Not on filedocumented as of this encounter Visit Diagnoses Diagnosis Need for influenza vaccination - Primary Need for prophylactic vaccination and in oculation against influenza documented in this encounter Care Teams Apprentice Carpenter Relationship Specialty Start Date End Date Shiraz Simeon PA-C PCP - General 11/02/11 03/01/16 [address] [place] [id number] documented as of this encounter
--- OUTSIDE RECORDS SUMMARY | 2022-05-31 14:43 | XMS_ITS | Encounter Summary ---
:1945 Author Organization [facility] Address [address] [place] [address] Care Team Providers Name Role Phone Shiraz Simeon PA-C Primary Care Provider Encounter Details Date Type Department Care Team Description 01/27/2015 Lab Visit [place] History of iron deficiency [address] anemia [place] [address] Social History Tobacco Use Types Packs/Day Years Used Date Smoking Tobacco: Never Assessed Sex Assigned at Date Recorded Not on file documented as of this encounter Plan of Treatment Not on filedocumented as of this encounter Procedures Procedure Name Priority Date/Time Associated Diagnosis Comme nts HEMOGLOBIN, BLOOD Routine 01/27/2015 11:37 AM History of iron Results for this CDT deficiency anemia procedure are in the results section. FERRITIN Routine 01/27/2015 11:37 AM History of iron Resul ts for this CDT deficiency anemia procedure are in the results section. documented in this encounter Results (ABNORMAL) Ferritin (01/27/2015 11:37 AM CDT) athologist Signature Ferritin Serum <1 (L) 10 - 291 HP CONVERSION ng/mL Specimen Anatomical Collection Method Collection Time Receive d Time (Source) Location / / Volume Laterality 01/27/2015 11:37 01/27/2015 3:42 AM CDT PM CDT Narrative HP CONVERSION - 01/27/2015 4:30 PM CDT Performed at [facility], [facility] [place] [address] Shiraz Simeon PA-C LAB_1 Performing Organization Address City/State/ZIP Code Phon e Number HP CONVERSION (ABNORMAL) Hemoglobin, Blood (01/27/2015 11:37 AM CDT) P athologist Signature Hemoglobin 9.1 (L) 11.8 - 15.5 HP CONVERSION g/dL Specimen Anatomical Collection Method Collection Time Receive d Time (Source) Location / / Volume Laterality 01/27/2015 11:37 01/27/2015 AM CDT 11:37 AM CDT Narrative HP CONVERSION - 01/27/2015 11:47 AM CDT Performed at [facility], [address] [place], [place] [address] [address] Shiraz Simeon PA-C LAB_1 Performing Organization Address City/State/ZIP Code Phon e Number HP CONVERSION documented in this encounter Visit Diagnoses Diagnosis History of iron deficiency anemia Personal history of diseases of blood an d blood-forming organs documented in this encounter Care Teams Net Mender Relationship Specialty Start Date End Date Shiraz Simeon PA-C PCP - General 11/02/11 03/01/[address] [place] [address] [place] [address] documented as of this encounter
--- OUTSIDE RECORDS SUMMARY | 2022-05-31 14:43 | XMS_ITS | Encounter Summary ---
:1945 Author Organization [employer] Address [address] [place] [address] Care Team Providers Name Role Phone Shiraz Simeon PA-C Primary Care Provider Reason for Visit Reason Comments Refill sertraline (ZOLOFT) 100 MG t ablet [Pharmacy Med Name: SERTRALINE HCL 100MG TABS]; omeprazole (PRILOSEC) 20 MG capsule [Pharmacy Med Name: OMEPRAZOLE 20MG CPDR] Encounter Details Date Type Department Care Team Description 12/14/2017 Refill [facility] Shiraz Simeon PA-C Refill (sertraline [address] (ZOLOFT) 100 [place] [address] [place] [address] [Pharmacy Med Name: [phone] (Wo rk) SERTRALINE HCL 100MG TABS]; om eprazole (PRILOSEC) 20 M G capsule [Pharmacy Med N guilherme: OMEPRAZOLE 20MG CPDR]) Social History Tobacco Use Types Packs/Day Years Used Date Smoking Tobacco: Every Day Cigarettes 0.3 30 Smokeless Tobacco: Never Comments: Smoking History Packs/day: Alcohol Use Standard Drinks/Week Comments No 0 (1 standard drink = 0.6 oz pure alcoho l) Sex Assigned at Date Recorded Not on file documented as of this encounter Nursing Notes Shiraz Simeon PA-C - 12/16/2017 9:39 AM CDT faxed Jamey Childers RN - 12/14/2017 10:50 AM CDT Further Assistance Needed on Refill from Clinician RN reviewed. Patient overdue for Qualifying visit. An office visit is overdue (performed 17 months ago, required every 12 months). ? Last qualifying visit: 07/25/2016 (with SHIRAZ SIMEON) ? Next scheduled visit: None ? Review pended order for accuracy. Sign if appropriate. Document if appointment is needed for furtherrefills. Route to care team to notify patient if needed. Requested Prescriptions Pending Prescriptions Disp Refills ??? sertraline (ZOLOFT) 100 MG tablet [Pharmacy Med Name: SERTRALINE HCL 100MG TABS] 180 Tab 0 Sig: TAKE TWO TABLETS BY MOUTH EVERY DAY ??? omeprazole (PRILOSEC) 20 MG capsule [Pharmacy Med Name: OMEPRAZOLE 20MG CPDR] 90 Cap 0 Sig: TAKE ONE CAPSULE BY MOUTH EVERY DAY Interface, Out Surescripts Prov Query - 12/14/2017 10:48 AM CDT omeprazole (PRILOSEC) 20 MG capsule [Pharmacy Med Name: OMEPRAZOLE 20MG CPDR] Medication started: 10/30/2012 Last ordered by SHIRAZ SIMEON: 07/25/2016 (507 days ago) QTY: 90, Refills: 3, Sig: take 1 cap by mouth daily. (changed but equivalent) -> An office visit is overdue (performed 17 months ago, required every 12 months). Last qualifying visit: 07/25/2016 (with SHIRAZ SIMEON) Next scheduled visit: None Powered by [employer], Reference: [id number], 12/14/2017 10:48:45 AM JODEETClif: EAGEN REFILL ([id number]) sertraline (ZOLOFT) 100 MG tablet [Pharmacy Med Name: SERTRALINE HCL 100MG TABS] Medication started: 10/30/2012 Last ordered by SHIRAZ SIMEON: 07/25/2016 (507 days ago) QTY: 180, Refills: 3, Sig: take 2 tabs by mouth daily. (changed but equivalent) -> An office visit is overdue (performed 17 months ago, required every 12 months). Last qualifying visit: 07/25/2016 (with SHIRAZ SIMEON) Next scheduled visit: None SBP: 124 mm Hg on 07/25/2016 DBP: 72 mm Hg on 07/25/2016 Powered by [employer], Reference: [id number], 12/14/2017 10:48:45 AM JODEET, Clif: EAGEN REFILL ([id number]) documented in this encounter Plan of Treatment Not on filedocumented as of this encounter Visit Diagnoses Not on filedocumented in this encounter Care Teams Emergency Medicine Physician Relationship Specialty Start Date End Date Shiraz Simeon PA-C PCP - General 03/02/16 [address] [place] [address] documented as of this encounter
--- OUTSIDE RECORDS SUMMARY | 2022-05-31 14:43 | XMS_ITS | Encounter Summary ---
:1945 Author Organization [employer] Address [address] [place] [address] Care Team Providers Name Role Phone Shiraz Simeon PA-C Primary Care Provider Reason for Visit Reason Comments Refill gabapentin (NEURONTIN) 400 M G capsule [Pharmacy Med Name: GABAPENTIN 400MG CAPS] Encounter Details Date Type Department Care Team Description 12/14/2017 [facility]ill [facility] Shiraz Simeon PA-C Refill (gabapentin [address] (NEURONTIN) [address] [place] [address] [place] [address] capsule [Pharmacy Med [phone] (Wo rk) Name: GABAPENTIN 400MG CAPS]) Social History Tobacco Use Types Packs/Day Years Used Date Smoking Tobacco: Every Day Cigarettes 0.3 30 Smokeless Tobacco: Never Comments: Smoking History Packs/day: Alcohol Use Standard Drinks/Week Comments No 0 (1 standard drink = 0.6 oz pure alcoho l) Sex Assigned at Date Recorded Not on file documented as of this encounter Nursing Notes Natasha Pruett, EDWARD - 12/15/2017 1:56 PM CDT Refill addressed in another encounter. Interface, Out Surescripts Prov Query - 12/14/2017 10:48 AM CDT gabapentin (NEURONTIN) 400 MG capsule [Pharmacy Med Name: GABAPENTIN 400MG CAPS] Medication started: 10/30/2012 Last ordered by SHIRAZ SIMEON: 08/10/2017 (126 days ago) QTY: 360, Refills: 0, Sig: take three capsules by mouth every day for restless leg syndrome may take an additional one capsule if needed (unchanged) -> This medication may not have been authorized by the requested provider. -> An office visit is overdue (performed 17 months ago, required every 12 months). Last qualifying visit: 07/25/2016 (with SHIRAZ SIMEON) Next scheduled visit: None Powered by [employer], Reference: [id number], 12/14/2017 10:48:45 AM CDT, Pool: ARIANNE REFILL ([id number]) documented in this encounter Plan of Treatment Not on filedocumented as of this encounter Visit Diagnoses Not on filedocumented in this encounter Care Teams Electrophysiologist Relationship Specialty Start Date End Date Shiraz Simeon PA-C PCP - General 03/02/16 [address] [place] [address] documented as of this encounter
--- OUTSIDE RECORDS SUMMARY | 2022-05-31 14:43 | XMS_ITS | Encounter Summary ---
:1945 Author Organization [facility] Address [address] [place] [address] Care Team Providers Name Role Phone Shiraz Simeon PA-C Primary Care Provider Encounter Details Date Type Department Care Team Description 04/17/2018 Lab Visit [place] [facility] Iron deficiency anemia, unsp ecified iron deficiency anemia type; [address] Screening cholesterol level; [place] [address] Need for hepatitis C screeni ng test [phone] Social History Tobacco Use Types Packs/Day Years [...] Name Priority Date/Time Associated Diagnosis Comme nts LIPID PANEL AND Routine 04/17/2018 8:41 AM Screening Result s for this DIRECT LDL(IF CDT cholesterol level procedure are in NEEDED) the results section. HEMOGLOBIN, BLOOD Routine 04/17/2018 8:41 AM Iron deficiency R esults for this CDT anemia, unspecified procedur e are in iron deficiency the results anemia type section. HEPATITIS C Routine 04/17/2018 8:41 AM Need for hepatitis C R esults for this ANTIBODY, WITH CDT screening test procedure a re in REFLEX the results section. FERRITIN Routine 04/17/2018 8:41 AM Iron deficiency Result s for this CDT anemia, unspecified procedur e are in iron deficiency the results anemia type section. documented in this encounter Results Hepatitis C Virus Miley with Reflex (04/17/2018 8:41 AM CDT) Patholo gist Method Time Signature Hepatitis C Nonreactive Nonreactive PN SOFT Antibody Specimen Anatomical Collection Method Collection Time Receive d Time (Source) Location / / Volume Laterality 04/17/2018 8:41 AM 8 CDT 12:10 PM CDT Narrative PN SOFT - 04/17/2018 1:39 PM CDT Performed at [facility] [address] [place] [address] CLIA number [id number] Shiraz Simeon PA-C LAB_1 Performing Organization Address City/[facility] Phon e Number PN SOFT [address] [place] [address] Lipid Panel - LDLD If Trig High (04/17/2018 8:41 AM CDT) Analysis Performed At Patho logist Time Signature Cholesterol 185 0 - 199 PN SOFT mg/dL Triglycerides 78 4 - 149 PN SOFT mg/dL HDL Cholesterol 63 >39 mg/dL PN SOFT Cholesterol/HDL 2.9 PN SOFT Ratio Screen LDL Calculated 106 19 - 130 PN SOFT mg/dL Non HDL Chol, Calc 122 0 - 159 PN SOFT mg/dL Length Of Fast 10.0 PN SOFT Specimen Anatomical Collection Method Collection Time Receive d Time (Source) Location / / Volume Laterality 04/17/2018 8:41 AM 8 CDT 11:03 AM CDT Narrative PN SOFT - 04/17/2018 11:29 AM CDT Performed at [facility], [address] [place] [address] CLIA number [id number] Shiraz Simeon PA-C LAB_1 Performing Organization Address City/[facility] Phon e Number PN SOFT [address] [place] [address] (ABNORMAL) Hemoglobin (04/17/2018 8:41 AM CDT) P athologist Signature Hemoglobin 9.5 (L) 11.8 - 15.5 PN SOFT g/dL Specimen Anatomical Collection Method Collection Time Receive d Time (Source) Location / / Volume Laterality 04/17/2018 8:41 AM 8 8:41 CDT AM CDT Narrative PN SOFT - 04/17/2018 9:08 AM CDT Performed at [facility], [address] [place], [place] [address] [address] CLIA number [id number] Shiraz Simeon PA-C LAB_1 Performing Organization Address [facility]/ZIP [facility] Phon e Number PN SOFT [address] [place] [address] (ABNORMAL) Ferritin (04/17/2018 8:41 AM CDT) P athologist Signature Ferritin Serum 5 (L) 9 - 204 PN SOFT ng/mL Specimen Anatomical Collection Method Collection Time Receive d Time (Source) Location / / Volume Laterality 04/17/2018 8:41 AM 8 CDT 12:05 PM CDT Narrative PN SOFT - 04/17/2018 1:10 PM CDT Performed at [facility], [facility] [place] [address] CLIA number [id number] Shiraz Simeon PA-C LAB_1 Performing Organization Address [facility] Phon e Number PN SOFT [address] [place] [address] documented in this encounter Visit Diagnoses Diagnosis Iron deficiency anemia, unspecified iron deficiency anemia type Screening cholesterol level Screening for lipoid disorders Need for hepatitis C screening test Special screening examination for other specified viral diseases documented in this encounter Care Teams Buncher Machine Relationship Specialty Start Date End Date Shiraz Simeon PA-C [facility]CP - [facility] [address] documented as of this encounter
--- OUTSIDE RECORDS SUMMARY | 2022-05-31 14:43 | XMS_ITS | Encounter Summary ---
:1945 Author Organization [employer] Address [address] [place] [address] Care Team Providers Name Role Phone Shiraz Simeon PA-C Primary Care Provider Reason for Visit Reason Comments Refill gabapentin (NEURONTIN) 400 M G capsule [Pharmacy Med Name: GABAPENTIN 400MG CAPS] Encounter Details Date Type Department Care Team Description 08/09/2017 Refill [facility] Shiraz Simeon PA-C Refill (gabapentin [address] (NEURONTIN) 400 [place] [address] [place] [address] capsule [Pharmacy Med [phone] (Wo rk) Name: GABAPENTIN 400MG CAPS]) Social History Tobacco Use Types Packs/Day Years Used Date Smoking Tobacco: Every Day Cigarettes 0.3 30 Smokeless Tobacco: Never Comments: Smoking History Packs/day: Alcohol Use Standard Drinks/Week Comments No 0 (1 standard drink = 0.6 oz pure alcoho l) Sex Assigned at Date Recorded Not on file documented as of this encounter Nursing Notes Zack Patel - 08/13/2017 9:20 AM CST Left message on the answering machine for the pt. To schedule an appt. SERVICE SUPERVISOR Ara Burns RN - 08/10/2017 3:45 PM CST OFFICE APPOINTMENT NEEDED Please notify patient to schedule an appointment within 30 days. Requested Prescriptions Signed Prescriptions Disp Refills ??? gabapentin (NEURONTIN) 400 MG capsule 360 Cap 0 Sig: TAKE THREE CAPSULES BY MOUTH EVERY DAY FOR RESTLESS LEG SYNDROME MAY TAKE AN ADDITIONAL ONE CAPSULE IF NEEDED Authorizing Provider: SHIRAZ SIMEON Ordering User: ARA BURNS SERVICE SUPERVISOR Interface, Out Surescripts Prov Query - 08/09/2017 7:33 AM CST gabapentin (NEURONTIN) 400 MG capsule [Pharmacy Med Name: GABAPENTIN 400MG CAPS] Medication started: 11/03/2011 Last ordered by SHIRAZ SIMEON: 07/25/2016 (380 days ago) QTY: 360, Refills: 3, Sig: take 3 capsules by mouth daily for restless leg syndrome, may take an additional one tab if needed (changed) -> The patient is requesting a renewal from a different pharmacy. -> The requested sig has changed from the last order. -> A courtesy refill was already recommended on 08/07/2017. -> Refill x 3 months (courtesy refill. overdue for an office visit) -> Calculate quantity and refills manually. They could not be estimated due to missing or unreadable information. Last qualifying visit: 07/25/2016 (with SHIRAZ SIMEON) Next scheduled visit: None Powered by [employer], Reference: [id number], 08/09/2017 7:33:17 AM SPIKE, Clif: ARIANNE REFILL ([id number]) SERVICE SUPERVISOR documented in this encounter Plan of Treatment Not on filedocumented as of this encounter Visit Diagnoses Not on filedocumented in this encounter Care Teams Wheel Cleaner Relationship Specialty Start Date End Date Shiraz Simeon PA-C PCP - General 03/02/16 [address] [place], [place] [address] documented as of this encounter
--- OUTSIDE RECORDS SUMMARY | 2022-05-31 14:43 | XMS_ITS | Encounter Summary ---
:1945 Author Organization [employer] Address [address] [place] [address] Care Team Providers Name Role Phone Shiraz Simeon PA-C Primary Care Provider Reason for Visit Reason Comments Refill gabapentin (NEURONTIN) 300 M G capsule [Pharmacy Med Name: GABAPENTIN 300MG CAPS] Encounter Details Date Type Department Care Team Description 03/07/2016 Refill [facility] Shiraz Simeon PA-C Refill (gabapentin [address] (NEURONTIN) 300 [place] [address] [place] [address] capsule [Pharmacy Med [phone] (Wo rk) Name: GABAPENTIN 300MG CAPS]) Social History Tobacco Use Types Packs/Day Years Used Date Smoking Tobacco: Every Day Cigarettes 0.3 30 Smokeless Tobacco: Never Comments: Smoking History Packs/day: Alcohol Use Standard Drinks/Week Comments No 0 (1 standard drink = 0.6 oz pure alcoho l) Sex Assigned at Date Recorded Not on file documented as of this encounter Nursing Notes Eric Warner RN - 03/09/2016 10:32 AM CDT OFFICE APPOINTMENT NEEDED Please notify patient to schedule an appointment within 30 days. Requested Prescriptions Signed Prescriptions Disp Refills ??? gabapentin (NEURONTIN) 300 MG capsule 360 Cap 0 Sig: TAKE 2-4 CAPSULES BY MOUTH DAILY FOR RLS Authorizing Provider: SHIRAZ SIMEON Ordering User: ERIC WARNER Interface, Out The [employer] Prov Query - 03/07/2016 11:34 AM CDT gabapentin (NEURONTIN) 300 MG capsule [Pharmacy Med Name: GABAPENTIN 300MG CAPS] - MEDICATION STARTED: 11/03/2011 - LAST REFILLED ON: 12/14/2015, QTY: 360, Refills: 0, Sig: take 2-4 capsules by mouth daily for rls (unchanged) - WARNING: This medication may not have been authorized by the requested provider. - REFILL: 3 months (if warnings resolved; manual update required, due to unreadable sig) - RATIONALE: This is a courtesy refill. Patient is overdue for an office visit. This will be the last refill authorized by the protocol. - LAST QUALIFYING VISIT WITH SHIRAZ SIMEON: 01/27/2015 - NEXT SCHEDULED VISIT: None Powered by [employer], Reference: [id number], 03/07/2016 11:34:17 AM CDT, Clif: ARIANNE VALDEZ ([id number]) documented in this encounter Plan of Treatment Not on filedocumented as of this encounter Visit Diagnoses Not on filedocumented in this encounter Care Teams Filling Hauler Relationship Specialty Start Date End Date Shiraz Simeon PA-C PCP - General 03/02/16 [place] [address] documented as of this encounter
--- OUTSIDE RECORDS SUMMARY | 2022-05-31 14:43 | XMS_ITS | Encounter Summary ---
:1945 Author Organization [employer] Address [address] [place] [address] Care Team Providers Name Role Phone Shiraz Simeon PA-C Primary Care Provider Encounter Details Date Type Department Care Team Description 07/13/2017 urbano Cohn [phone] Social History Tobacco Use Types Packs/Day Years Used Date Smoking Tobacco: Every Day Cigarettes 0.3 30 Smokeless Tobacco: Never Comments: Smoking History Packs/day: Alcohol Use Standard Drinks/Week Comments No 0 (1 standard drink = 0.6 oz pure alcoho l) Sex Assigned at Date Recorded Not on file documented as of this encounter Progress Notes FAMILY MEDICINEURBANO PROVIDER - 07/16/2017 12:00 AM CST urbano Addendum Treatment Plan Diagnosis Sinusitis Visit Date July 13, 2017 Addendum Date July 16, 2017 Shruti Josephjulian Date of : 47 Provider Louise Mata, Nurse Practitioner Note From Provider Monty Bahena~Thanks for Requesting a Call Back and discussing your symptoms with me. Feel better soon! Ankita SPANISH TRANSLATOR Treatment Plan Since you have a bacterial infection, let's try an antibiotic. I sent a prescription to [facility]. I???ve prescribed high dose amoxicillin, which the latest evidence recommends as the best and safest antibiotic to clear up your bacterial infection faster. I???ve also listed a few self-care tips tosoothe your symptoms while the antibiotic kills the bacteria. If your symptoms don't improve after 4days, or if you have questions, please use the Request a Call Back button and we'll adjust your treatment for free. Order(s) amoxicillin 500 mg capsule Take 2 capsule by mouth three times a day as directed for 7 days Note: Refills: None Sent To: [facility] [address] [place], [place] [id number] Treatment Plan Self Care Tip Topics Inflammation Relief with Ibuprofen Avoid Decongestants and Antihistamines Warm Packs Steam Therapy Humidify Irrigate Your Sinuses What to Expect Our goal is to treat the infection and to reduce the inflammation of your sinus tissues to promote drainage. This will make you feel better quickly and help the antibiotic work faster. If you follow the recommendations I made on the Treatment tab, your symptoms should begin to improve in 4 days of following this treatment plan. If your symptoms haven???t improved after 4 days, please click the Request a Call Back button and we???ll call you back in about 30 minutes to adjust your treatment for free. What to Watch Out For Give us a call immediately if you experience: ??? Vision changes ??? Redness occurring in the face ??? Increasing congestion ??? Worsening pain ??? High fevers My Conditions, Orders, Allergies as of July 16, 2017 Standard condition list None Current orders amoxicillin (amoxicillin) benzonatate (benzonatate) fluticasone (fluticasone) Advil (ibuprofen) Allergies None [facility] Information [facility] We are an online clinic open 22/01. If you have any questions or comments about this visit, please call or email [email or web address]. MS PROCESSOR FAMILY MEDICINE, URBANO PROVIDER - 07/13/2017 12:00 AM CST urbano Treatment Plan Diagnosis Viral Sinusitis Visit Date July 13, 2017 Shruti Corbin Date of : 47 Provider Radha Navarro, Nurse Practitioner Note From Provider Denise Multani that you are not feeling well. Thanks for clarifying your symptoms with me. Be sure to read through the entire treatment plan below. Request a call back if you have any questions or concerns, we are available 22/01. Take care and be well, Radha NavraroSTEPH Treatment Plan Let???s get you feeling better in the next 24 hours by using an effective blend of kkhx-ifi-upateol products to kick this viral infection. And for your cough, let???s try a prescription strength cough suppressant. Though a great cough remedy for adults, this prescription is not safe for children and should be kept out of reach. I???ve sent your prescription to [facility] . We???ll work to reduce your pain and inflammation, help drain that irritating mucus and prevent this from worsening. Because this infection is caused by a virus, an antibiotic won???t be effective at helping your pain or treating the virus. If your symptoms don???t improve after 24 hours, or if you have questions, Request a Juan l Back and we???ll adjust your treatment for free. Order(s) fluticasone 50 mcg/actuation spray,suspension [place] 2 spray into both nostrils once a day as directed for 30 days Note: Refills: 2 benzonatate 100 mg capsule Take 2 capsule by mouth at bedtime as needed for 10 days Note: Swallow capsules whole. Refills: None Sent To: [facility] [place] [address] Treatment Plan Self Care Tip Topics Inflammation Relief with Ibuprofen Ear Pain Warm Packs Reduce Inflammation with Nasal Steroids Irrigate Your Sinuses What to Expect Let???s work on reducing your pain and inflammation, as well as promoting drainage, to help kick theviral infection and get you feeling more like yourself. Follow the recommendations on the Treatment tab and your symptoms should begin to improve over the next 24 hours. If your symptoms haven???t impro keyur after 1 day, please Request a Callback and we???ll adjust your treatment for free. What to Watch Out For Give us a call immediately if you experience: ??? Vision changes ??? Redness occurring in the face ??? Increasing congestion ??? Worsening pain ??? High fevers My Conditions, Orders, Allergies as of July 13, 2017 Standard condition list None Current orders benzonatate (benzonatate) fluticasone (fluticasone) Advil (ibuprofen) Allergies None [facility] Information [facility] We are an online clinic open 22/01. If you have any questions or comments about this visit, please call or email [email or web address]. MS PROCESSOR documented in this encounter Plan of Treatment Not on filedocumented as of this encounter Visit Diagnoses Not on filedocumented in this encounter Care Teams Construction Executive Relationship Specialty Start Date End Date Shiraz Simeon PA-C PCP - General 03/02/16 [address] [place] [address] documented as of this encounter
--- OUTSIDE RECORDS SUMMARY | 2022-05-31 14:43 | XMS_ITS | Encounter Summary ---
:1945 Author Organization [employer] Address [address] [place] [address] Care Team Providers Name Role Phone Shiraz Simeon PA-C Primary Care Provider Reason for Visit Reason Comments Refill Encounter Details Date Type Department Care Team Description 09/27/2015 Refill [facility] Shiraz Simeon PA-C Refill [address] [place] [address] [place] [address] [phone] (Wo rk) Social History Tobacco Use Types Packs/Day Years Used Date Smoking Tobacco: Never Assessed Sex Assigned at Date Recorded Not on file documented as of this encounter Nursing Notes Adriana Jackson LPN - 09/27/2015 3:33 PM CDT Printed RX taken to [facility]. Done. Anibal Alva MD - 09/27/2015 3:32 PM CDT Printed, next refill through PCP please Radha Saunders - 09/27/2015 3:30 PM CDT PRINT, SIGN AND BRING TO [facility] TRAMADOL HCL 50MG TABS QTY 120 LAST FILLED 01/27/2015 LAST OFFICE VISIT 01/27/2015 documented in this encounter Plan of Treatment Not on filedocumented as of this encounter Visit Diagnoses Diagnosis Chronic back pain - Primary Backache, unspecified documented in this encounter Care Teams Rubber Covering Machine Operator Relationship Specialty Start Date End Date Shiraz Simeon PA-C PCP - General 11/02/11 03/01/16 [address] [place], [place] [address] documented as of this encounter
--- OUTSIDE RECORDS SUMMARY | 2022-05-31 14:43 | XMS_ITS | Encounter Summary ---
:1945 Author Organization [facility] Address [address] [place] [address] Care Team Providers Name Role Phone Shiraz Simeon PA-C Primary Care Provider Reason for Visit Reason Comments Refill Encounter Details Date Type Department Care Team Description 12/12/2015 Refill [facility] Shiraz Simeon PA-C Refill [address] [place] [address] [place] [address] [phone] (Wo rk) Social History Tobacco Use Types Packs/Day Years Used Date Smoking Tobacco: Never Assessed Sex Assigned at Date Recorded Not on file documented as of this encounter Nursing Notes User, [employer] - 12/14/2015 7:54 AM CDT gabapentin (NEURONTIN) 300 mg capsule [Pharmacy Med Name: GABAPENTIN 300MG CAPS] - MEDICATION STARTED: 11/03/2011 - LAST REFILLED ON: 01/27/2015, QTY: 360, Refills: 3, Sig: take 2-4 tabs daily for rls (changed) - WARNING #1: This medication may not have been authorized by the requested provider. - WARNING #2: Due to an unreadable sig, manually ensure the patient is due for a renewal. - REFILL: 3 months (if warnings resolved) - RATIONALE: This refill should last until the patient is due for an office visit. - LAST QUALIFYING VISIT WITH SHIRAZ SIMEON: 01/27/2015 - NEXT SCHEDULED VISIT: None Powered by [employer], Reference: [id number], 12/12/2015 11:15:24 AM CDT, Pool: ARIANNE REFILL ([id number]) AL DRILL PRESS SET UP OPERATOR Aviva Parnell, RN - 12/14/2015 7:54 AM CDT Renewed medication per medication refill protocol. Requested Prescriptions Signed Prescriptions Disp Refills ??? gabapentin (NEURONTIN) 300 mg capsule 360 capsule 0 Sig: TAKE 2-4 CAPSULES BY MOUTH DAILY FOR RLS Authorizing Provider: SHIRAZ SIMEON Ordering User: AVIVA PARNELL documented in this encounter Plan of Treatment Not on filedocumented as of this encounter Visit Diagnoses Not on filedocumented in this encounter Care Teams Electrical Accessories Assembler Relationship Specialty Start Date End Date Shiraz Simeon PA-C PCP - General 11/02/11 03/01/16 [place] [address] documented as of this encounter
--- OUTSIDE RECORDS SUMMARY | 2022-05-31 14:43 | XMS_ITS | Encounter Summary ---
:1945 Author Organization [employer] Address [address] [place] [address] Care Team Providers Name Role Phone Shiraz Simeon PA-C Primary Care Provider Encounter Details Date Type Department Care Team Description 11/16/2017 urbano Cohn [phone] Social History Tobacco Use Types Packs/Day Years Used Date Smoking Tobacco: Every Day Cigarettes 0.3 30 Smokeless Tobacco: Never Comments: Smoking History Packs/day: Alcohol Use Standard Drinks/Week Comments No 0 (1 standard drink = 0.6 oz pure alcoho l) Sex Assigned at Date Recorded Not on file documented as of this encounter Progress Notes FAMILY MEDICINEURBANO PROVIDER - 11/16/2017 12:00 AM CDT urbano Treatment Plan Diagnosis Viral Sinusitis Visit Date November 16, 2017 Shruti Emerald Date of : 47 Provider Miya Pringle, Physician Executive Chef Note From Provider Monty Bahena! Thanks for taking the time to speak with me today. Your symptoms are currently being caused by inflammation and infection in the sinuses caused by a virus, not bacteria growing. Let's focus on decreasing that and making you feel better faster. The high dose ibuprofen (800 mg every 8 hours with food) x3 days and Mucinex (plain without a decongestant or antihistamine) as listed, along with the other self-care tips will help. Start the prescription nasal spray to further help with sinus inflammation and pressure. Typical viral illness lasts 7-10 days. If your symptoms don't improve after 3-4days with the listed around the clock cares, please Request a Call Back for free, we can adjust your treatment plan as needed. Hope you feel better soon, KENISHA Holliday Treatment Plan Let?s get you feeling better in the next 24 hours by using a prescription nasal steroid and an effective blend of xayx-xil-okcoqsq products to kick this viral infection. We?ll work to reduce your pain and inflammation, help drain that irritating mucus and prevent this from worsening. Because this infection is caused by a virus, an antibiotic won?t be effective at helping your pain or treating the virus. I sent your prescription to [facility] [id number]. If your symptoms don?t improve after 24 hours, or if you have questions, Request a Call Back and we?ll adjust your treatment for free. Order(s) fluticasone 50 mcg/actuation spray,suspension [place] 2 spray into both nostrils once a day as directed for 30 days Note: Refills: 2 Sent To: [facility] [address] [place] [id number] Treatment Plan Self Care Tip Topics Inflammation Relief with Ibuprofen Warm Packs Reduce Inflammation with Nasal Steroids Steam Therapy Irrigate Your Sinuses What to Expect Let?s work on reducing your pain and inflammation, as well as promoting drainage, to help kick the viral infection and get you feeling more like yourself. Follow the recommendations on the Treatment tab and your symptoms should begin to improve over the next 24 hours. If your symptoms haven?t i mproved after 1 day, please Request a Callback and we?ll adjust your treatment for free. What to Watch Out For Give us a call immediately if you experience: ??? Vision changes ??? Redness occurring in the face ??? Increasing congestion ??? Worsening pain ??? High fevers My Conditions, Orders, Allergies as of November 16, 2017 Standard condition list None Current orders fluticasone (fluticasone) Advil (ibuprofen) Allergies None [facility] Information [facility] We are an online clinic open 22/01. If you have any questions or comments about this visit, please call or email [email or web address]. documented in this encounter Plan of Treatment Not on filedocumented as of this encounter Visit Diagnoses Not on filedocumented in this encounter Care Teams Client Program Manager Relationship Specialty Start Date End Date Shiraz Simeon PA-C PCP - General 03/02/16 [address] [place] [address] documented as of this encounter
--- OUTSIDE RECORDS SUMMARY | 2022-05-31 14:43 | XMS_ITS | Encounter Summary ---
:1945 Author Organization [employer] Address [address] [place] [address] Care Team Providers Name Role Phone Shiraz Simeon PA-C Primary Care Provider Reason for Visit Reason Comments Refill traMADol (ULTRAM) 50 MG tabl et [Pharmacy Med Name: TRAMADOL HCL 50MG TABS] Encounter Details Date Type Department Care Team Description 07/01/2019 Refill [facility] Shiraz Simeon PA-C Refill (traMADol [address] (ULTRAM) 50 MG tablet [place] [address] [place] [address] [Pharmacy Med Name: [phone] (Wo rk) TRAMADOL HCL 50MG TABS]) Social History Tobacco Use Types Packs/Day Years Used Date Smoking Tobacco: Every Day Cigarettes 0.3 Smokeless Tobacco: Never Alcohol Use Standard Drinks/Week Comments No 0 (1 standard drink = 0.6 oz pure alcoho l) Sex Assigned at Date Recorded Not on file documented as of this encounter Nursing Notes Shiraz Simeon PA-C - 07/01/2019 11:02 AM CST faxed ITION SETTER Interface, Out S[employer]cripts Prov Query - 07/01/2019 7:54 AM CST No Careplan note found by [employer]. ITION SETTER Interface, Out C[employer]ap[employer] Prov Query - 07/01/2019 7:54 AM CST traMADol (ULTRAM) 50 MG tablet [Pharmacy Med Name: TRAMADOL HCL 50MG TABS] Medication started: 12/24/2013 Last ordered by SHIRAZ SIMEON: 06/03/2019 (28 days ago) QTY: 90, Refills: 0, Sig: take 1 tablet by mouth three times a day as needed for pain. (changed but equivalent) -> Medication cannot be delegated. 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
--- OUTSIDE RECORDS SUMMARY | 2022-05-31 14:43 | XMS_ITS | Encounter Summary ---
:1945 Author Organization [employer] Address [address] [place] [address] Care Team Providers Name Role Phone Shiraz Simeon PA-C Primary Care Provider Reason for Visit Reason Comments MEDICATION CHECK Encounter Details Date Type Department Care Team Description 01/27/2015 Office Visit [facility] e Shiraz Simeon, Generalized anxiety disorder (Primary Dx); [address] PA-C Chronic back pain; [place] [address] [address] History of gastric ulcer; [phone] [place] [address] History of iron deficiency anemia; [phone] Encounter for s creening for osteoporosis; (Work) Need for pneumococcal vaccine; [phone] Need for shingl es vaccine (Fax) Social History Tobacco Use Types Packs/Day Years Used Date Smoking Tobacco: Never Assessed Sex Assigned at Date Recorded Not on file documented as of this encounter Last Filed Vital Signs Vital Sign Reading Time Taken Comments Blood Pressure 116/68 01/27/2015 11:01 AM CDT Pulse - - Temperature - - Respiratory Rate - - Oxygen Saturation - - Inhaled Oxygen Concentration - - Weight 54 kg (119 lb) 01/27/2015 11:01 AM CDT Height 161.3 cm (5' 3.5) 01/27/2015 11:01 AM CDT Body Mass Index 20.75 01/27/2015 11:01 AM CDT documented in this encounter Progress Notes Shiraz Simeon PA-C - 02/02/2015 1:00 PM CDT SUBJECTIVE: This 69 y.o. female presents today with the following concern(s): Multiple medication check She has been feeling more tired lately, wonders if her hemoglobin has dropped a bit again. Nothing as bad as what she felt prior to her diagnosis of anemia, when her hemoglobin was under 5, but her restless leg syndrome has worsened a bit, and she is craving chewing on ice more this summer. Could justbe because it has been hot and humid, but enough variety of symptoms that she is a little concerned about her hemoglobin. It was low end of normal 1 year ago. She has had no easy bruising or unusual bleeding, no dark or tarry black stools. Has had no GI symptoms, especially when she takes her omeprazole consistently. Has been taking that daily since her diagnosis of PUD a few years back. She has stayed away from NSAIDs, and manages her chronic back pain well with tramadol and gabapentin. No adverse effects to her medications. PHQ-9 score of 4, LILI-7 score of 4. Emotionally, feels well and healthy. 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 Cannot see herself retiring any time soon, but starting to groom her son to take over the business. She would plan to continue to help him even once he is running the show. Adverse Drug Reactions: is allergic to ferrous sulfate. Medications: has a current medication list which includes the following prescription(s): gabapentin,omeprazole, sertraline, and tramadol. Tobacco History: reports that she has been smoking Cigarettes. She has a 7.5 pack-year smoking history. She has never used smokeless tobacco. Alcohol History: reports that she does not drink alcohol. Marital History: OBJECTIVE: Vital Signs: BP 116/68 mmHg Ht 5' 3.5 (1.613 m) Wt 119 lb (53.978 kg) BMI 20.75 kg/m2 General appearance: alert, cooperative, no distress, appears stated age, Neck: supple, symmetrical, trachea midline, no adenopathy, thyroid: not enlarged, symmetric, no tenderness/mass/nodules and no carotid bruit, Back: symmetric, no curvature. ROM normal. No CVA tenderness., Lungs: clear to auscultation bilaterally, Heart: regular rate and rhythm, S1, S2 normal, no murmur, click, rub or gallop, Extremities: extremities normal, atraumatic, no cyanosis or edema and Pulses: 2+ and symmetric ASSESSMENT/PLAN: Shruti was seen today for medication check. Diagnoses and associated orders for this visit: Generalized anxiety disorder (ACG) - sertraline (ZOLOFT) 100 mg tablet; Take 1 tablet by mouth daily (every 24 hours). Indications: Anxiety Chronic back pain (ACG) - traMADol (ULTRAM) 50 mg tablet; Take 1 tablet by mouth every 6 hours as needed for Pain. - gabapentin (NEURONTIN) 300 mg capsule; Take 2-4 tabs daily for RLS History of gastric ulcer - omeprazole (PRILOSEC) 20 mg capsule; Take 1 capsule by mouth 2 times daily (before meals). History of iron deficiency anemia - Hemoglobin; Future - Ferritin; Future Encounter for screening for osteoporosis - DXA SCAN CONSULT ADULT (AMB); Future Need for pneumococcal vaccine - PCV13 (Prevnar) Need for shingles vaccine - ZOS (Shingles) - Counseling completed for all immunization components that were given to the patient today. The patient was discharged ambulatory and in stable condition. documented in this encounter Plan of Treatment Not on filedocumented as of this encounter Visit Diagnoses Diagnosis Generalized anxiety disorder (HRC) - Chetna moody Generalized anxiety disorder Chronic back pain Backache, unspecified History of gastric ulcer Personal history of other diseases of di gestive system History of iron deficiency anemia Personal history of diseases of blood an d blood-forming organs Encounter for screening for osteoporosis Special screening for osteoporosis Need for pneumococcal vaccine Need for prophylactic vaccination agains t streptococcus pneumoniae (pneumococcus) Need for shingles vaccine Need for prophylactic vaccination and in oculation against varicella documented in this encounter Care Teams Turf Sales Person Relationship Specialty Start Date End Date Shiraz Simeon PA-C PCP - General 11/02/11 03/01/16 [address] [place], [place] [address] documented as of this encounter
--- OUTSIDE RECORDS SUMMARY | 2022-05-31 14:43 | XMS_ITS | Encounter Summary ---
:1945 Author Organization [employer] Address [address] [place] [address] Care Team Providers Name Role Phone Shiraz Simeon PA-C Primary Care Provider Reason for Visit Reason Comments Other Per the new opioid legisltio n we need new prescription for patient's tramadol 50mg. We know there are refi lls but because of her not filling her medication within the last 30 days ( 08/20) we need to get a new prescription. Encounter Details Date Type Department Care Team Description 02/25/2019 Telephone [facility] Shiraz Pizano, Other (Per the new [address] KENISHA opioid legisltion we [place] [address] [address] need new prescription [phone] [place] [address] for patient's tramadol [phone] 50mg. We know t here are (Work) refills but because of [phone] her not filling her (Fax) medication with in the last 30 days () we need to get a new prescription.) Social History Tobacco Use Types Packs/Day Years Used Date Smoking Tobacco: Every Day Cigarettes 0.3 30 Smokeless Tobacco: Never Comments: Smoking History Packs/day: Alcohol Use Standard Drinks/Week Comments No 0 (1 standard drink = 0.6 oz pure alcoho l) Sex Assigned at Date Recorded Not on file documented as of this encounter Nursing Notes Shiraz Simeon PA-C - 02/25/2019 10:52 AM CDT faxed Radha Vogel - 02/25/2019 9:52 AM CDT Per the new opioid legisltion effective December 30,we need new prescription for patient's tramadol 50mg. We know there are refills but because of her not filling her medication within the last 30 days (12/31/18) we need to get a new prescription. Thanks! 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
--- OUTSIDE RECORDS SUMMARY | 2022-05-31 14:43 | XMS_ITS | Encounter Summary ---
:1945 Author Organization [employer] Address [address] [place] [address] Care Team Providers Name Role Phone Shiraz Simeon PA-C Primary Care Provider Reason for Visit Reason Comments Refill gabapentin (NEURONTIN) 300 M G capsule [Pharmacy Med Name: GABAPENTIN 300MG CAPS] Encounter Details Date Type Department Care Team Description 06/13/2016 Refill [facility] Shiraz Simeon PA-C Refill (gabapentin [address] (NEURONTIN) 300 [place] [address] [place] [address] capsule [Pharmacy Med [phone] (Wo rk) Name: GABAPENTIN 300MG CAPS]) Social History Tobacco Use Types Packs/Day Years Used Date Smoking Tobacco: Every Day Cigarettes 0.3 30 Smokeless Tobacco: Never Comments: Smoking History Packs/day: Alcohol Use Standard Drinks/Week Comments No 0 (1 standard drink = 0.6 oz pure alcoho l) Sex Assigned at Date Recorded Not on file documented as of this encounter Nursing Notes Zack Patel - 06/15/2016 2:42 PM CST Left message to schedule an appt ING MACHINE OPERATOR Shiraz Simeon PA-C - 06/15/2016 2:36 PM CST Rx faxed for 1 month supply. Please help her schedule within 30 days. ING MACHINE OPERATOR Zack Patel - 06/15/2016 2:23 PM CST Pt. would like to know if she can have a months worth. Her is having some issues right now and he has doctors appts and some testing to be done, making it very hard for her to get in, in the next 2 weeks ING MACHINE OPERATOR Shiraz Simeon PA-C - 06/15/2016 2:09 PM CST Rx faxed for short supply. Please help her schedule medication check within 2 weeks. ING MACHINE OPERATOR Unique Martinez RN - 06/15/2016 1:23 PM CST Further assistance needed to complete refill request Reason: Pt overdue for qualifying visit. Next Steps: Review pended order for accuracy. Sign. Route to frontline pool to schedule appt. Requested Prescriptions Pending Prescriptions Disp Refills ??? gabapentin (NEURONTIN) 300 MG capsule [Pharmacy Med Name: GABAPENTIN 300MG CAPS] 120 Cap 0 Sig: TAKE 2 TO 4 CAPSULES BY MOUTH DAILY FOR RESTLESS LEG SYNDROME ING MACHINE OPERATOR Rhonda, Anais Surescripts Prov Query - 06/13/2016 4:44 PM CST gabapentin (NEURONTIN) 300 MG capsule [Pharmacy Med Name: GABAPENTIN 300MG CAPS] Medication started: 11/03/2011 Last ordered by SHIRAZ SIMEON: 03/09/2016 (96 days ago) QTY: 360, Refills: 0, Sig: take 2-4 capsulesby mouth daily for rls (changed) -> This medication may not have been authorized by the requested provider. -> The requested sig has changed from the last order. -> An office visit is overdue (performed 17 months ago, required every 12 months). Last qualifying visit: 01/27/2015 (with SHIRAZ SIMEON) Next scheduled visit: None Powered by [employer], Reference: [id number], 06/13/2016 4:44:02 PM RUCHING MACHINE OPERATOR, Pool: ARIANNE JARAMILLOILL ([id number]) ING MACHINE OPERATOR documented in this encounter Plan of Treatment Not on filedocumented as of this encounter Visit Diagnoses Not on filedocumented in this encounter Care Teams Software Design Engineer Relationship Specialty Start Date End Date Shiraz Simeon PA-C PCP - General 03/02/16 [address], [place] [address] documented as of this encounter
--- OUTSIDE RECORDS SUMMARY | 2022-05-31 14:43 | XMS_ITS | Encounter Summary ---
:1945 Author Organization [employer] Address [address] [place] [address] Care Team Providers Name Role Phone Shiraz Simeon PA-C Primary Care Provider Reason for Referral Consult/Transfer Care (Routine) - Closed Specialty Diagnoses / Procedures Referred By Contact Refer red To Contact Diagnoses Chronic right-sided low back pain with right-sided sciatica (HRC) Shiraz Simeon PA-C [address] [place] [address] Referral ID Status Reason Start Date Expiration Date Visits Requ ested Visits Authorized [id number] Closed 04/17/2018 07/17/2019 1 1 Scheduling Instructions Your provider has recommended an appoint ment with [facility]. You may call [phone] to sche dule your appointment. If you do not schedule an appointment within the next 1 to 3 , we will call you to help arrange your appointment. We suggest you call [facility] about your coverage and benefits for this appointme nt. Consult/Transfer Care (Routine) - Closed Specialty Diagnoses / Procedures Referred By Contact Refer red To Contact Diagnoses Hearing loss, unspecified hearing loss type, unspecified laterality Shiraz Simeon PA-C [address] [place] [address] Referral ID Status Reason Start Date Expiration Date Visits Requ ested Visits Authorized [id number] Closed 04/17/2018 07/17/2019 1 1 Scheduling Instructions Your provider has recommended an appoint ment with [facility]. You may call [phone] to schedule your appoi ntment. If you do not schedule an appointment within the next 1 to 3 business days, we will call you to help arrange your appointment. We suggest you call your [employer] insurance company about your coverage and benefits for this appointment. Reason for Visit Reason Comments Medicare Annual Wellness MEDICATION CHECK Encounter Details Date Type Department Care Team Description 04/17/2018 Office Visit Shiraz Cabezas, Medicare annual wellness vis it, subsequent (Primary Dx); [address] PA-C History of gastric ulcer; [place] [address] [address] Chronic right-sided low back pain with r ight-sided sciatica; [phone] [place] [address] Iron deficiency anemia, unspecified iron deficiency anemia type; [phone] Restless legs s yndrome (RLS); (Work) Generalized anxiety disorder; [phone] Screening for b reast cancer; (Fax) Hearing loss, u nspecified hearing loss type, unspecified laterality; Screening susana sterol level; Need for hepati tis C screening test; Encounter for Michele lezama annual wellness exam Social History Tobacco Use Types Packs/Day Years [...] Sign Reading Time Taken Comments Blood Pressure 108/70 04/17/2018 7:48 AM CDT Pulse 80 04/17/2018 7:48 AM CDT Temperature - - Respiratory Rate - - Oxygen Saturation - - Inhaled Oxygen Concentration - - Weight 48.4 kg (106 lb 12.8 oz) 04/17/2018 7:48 AM CDT Height 156.2 cm (5' 1.5) 04/17/2018 7:48 AM CDT Body Mass Index 19.85 04/17/2018 7:48 AM CDT documented in this encounter Patient Instructions Patient InstructionsShShiraz anand PA-C - 04/17/2018 9:03 AM CDT Annual Wellness Visit Summary Your care team is recommending the following tests, procedures or services. Some of these recommendations may not be fully covered by Medicare or your insurance. If you have questions, check with your insurance to determine coverage before completing these services. Health Maintenance Due Health Maintenance Topic Date Due ??? Hep C Screening (Preventive Services) 1945 ??? Medicare Annual Wellness Visit 1945 ??? Zoster RZV (Shingrix) (1 of 2 - RZV 2 Dose Standard Series) 1996 ??? Advanced Directive 10/01/2011 ??? Dexa 10/01/2011 ??? Mammogram 03/16/2013 ??? Influenza (1) 03/02/2018 ??? Cholesterol 12/24/2018 ??? Colonoscopy 11/07/2021 ??? DTaP/Tdap/Td (3 - Td) 10/30/2022 ??? Pneumococcal Completed If your Medicare Welcome or Annual Wellness Visit is showing you are due in the above list, this will be updated after this visit. You had this completed today and are not due for another year. documented in this encounter Progress Notes Shiraz Simeon PA-C - 04/17/2018 9:03 AM CDT Subjective/Historical Shruti [place] is a 72 y.o. old female Chief Complaint Patient presents with ??? Medicare Annual Wellness ??? MEDICATION CHECK Current Concerns: None Mini-Cog Assessment Word Recall: 2 Clock Draw: 2 Total: 4 Additional Assessments Completed: PHQ9 was administered today with a total score of: 6 Has a Health Care Directive on file? no. Pertinent Positives from Medicare Wellness Form: MEDICARE ANNUAL WELLNESS CONCERNS 04/17/2018 Do you have difficulty hearing? Yes Do you use a hearing aid? No How many servings of fruits and vegetables do you eat a day? 2 to 4 Do you have rugs (not carpet) in your home? Yes The patient's health maintenance, problem list, past medical history, past surgical history, family history, medication list, allergies, and immunization records have been reviewed and updated in the patient record as necessary. Observed Vitals: BP 108/70 (BP Location: Left Arm, BP Cuff Size: Adult Regular) Pulse 80 Ht 5' 1.5 (1.562 m) Wt 106 lb 12.8 oz (48.4 kg) BMI 19.85 kg/m2 Assessment/Plan 1. Medicare annual wellness visit, subsequent 2. Hearing loss, unspecified hearing loss type, unspecified laterality Audiology referral signed. She believes she has an Advanced Health Directive, will look and bring katiana copy when she finds it. Counseling and education provided today includes proper nutrition and health habits, fall prevention, and for those items ordered above. Plan for future preventive services in Patient Instructions. Shiraz Simeon PA-C 04/17/2018, 9:03 AM SUBJECTIVE: This 72 y.o. female presents today with the following concern(s): Medication check Her right low back pain with right sciatica has worsened over the last year. Still taking tramadol, two tablets daily, but sometimes activity can be limited by her right leg pain. She also feels it contributes to her restless leg syndrome at night. Right leg just aches when she is trying to sleep, which makes her RLS symptoms flare, and she has to get up and move around. Tolerating both gabapentin and tramadol well without adverse effects. She takes omeprazole once each morning for prevention of gastritis and ulcers. She tolerates it wellwithout loose stools or other adverse effects. No breakthrough GI symptoms when she takes it consistently. Her was diagnosed with Alzheimer's about three years ago, and she has provided him care since then. Symptoms were progressive, but they were doing well. They were leaving the house to go to a regular doctor appointment last spring, and he suddenly sat on the landing and she couldn't get him toget up. She called 911 and paramedics found that he was in atrial fibrillation. Brought him into thehospital and they couldn't get his rate or rhythm controlled, he five days later in the hospital. It was so sudden, very hard on Shruti and her kids. 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 She went a few months where she wasn't eating, but over the last few weeks, feels like a veil is lifting. Adverse Drug Reactions: is allergic to ferrous sulfate. Medications: has a current medication list which includes the following prescription(s): gabapentin,omeprazole, sertraline, and tramadol. Tobacco History: reports that she has been smoking Cigarettes. She has a 7.50 pack-year smoking history. She has never used smokeless tobacco. Alcohol History: reports that she does not drink alcohol. OBJECTIVE: Vital Signs: BP 108/70 (BP Location: Left Arm, BP Cuff Size: Adult Regular) Pulse 80 Ht 5' 1.5 (1.562 m) Wt 106 lb 12.8 oz (48.4 kg) BMI 19.85 kg/m2 General appearance: alert, cooperative, no distress, appears stated age, Neck: supple, symmetrical, trachea midline, no adenopathy, thyroid: not enlarged, symmetric, no tenderness/mass/nodules and no carotid bruit, Lungs: clear to auscultation bilaterally, Heart: regular rate and rhythm, S1, S2 normal, no murmur, click, rub or gallop and Abdomen: soft, non-tender; bowel sounds normal; no masses, no organomegaly ASSESSMENT/PLAN: Shruti was seen today for medicare annual wellness and medication check. Diagnoses and all orders for this visit: History of gastric ulcer - omeprazole (PRILOSEC) 20 MG capsule; Take 1 Capsule by mouth daily. Take 1 hour before a meal. Chronic right-sided low back pain with right-sided sciatica (HRC) - traMADol (ULTRAM) 50 MG tablet; Take 1 Tablet by mouth two times a day. for pain - [facility] Medicine [facility] Rehab Consult-Adult Iron deficiency anemia, unspecified iron deficiency anemia type - Ferritin; Future - Hemoglobin; Future Restless legs syndrome (RLS) - Increase: gabapentin (NEURONTIN) 400 MG capsule; Take four capsules every evening for Restless LegSyndrome Generalized anxiety disorder (HRC) - sertraline (ZOLOFT) 100 MG tablet; Take 1 Tablet by mouth daily. Screening for breast cancer - MM Mammogram Screening Bilat W CAD; Future Screening cholesterol level - Lipid Panel - LDLD If Trig High; Future Need for hepatitis C screening test - Hepatitis C Virus Miley with Reflex; Future Other orders - Influenza IIV3 (Trivalent) Fluzone Highdose, 65+ Yrs (86122) Counseling completed for all immunization components that were given to the patient today. The patient was discharged ambulatory and in stable condition. documented in this encounter Plan of Treatment Scheduled Referrals Name Type Priority Associated Diagnoses Order S chedule Audiology Referral Routine Hearing loss, Ordered: 04/17 Consult-Adult/Peds unspecified hearing lo ss type, unspecified laterality Physical Medicine & Referral Routine Chronic right-sided l ow Ordered: 04/17/2018 Rehab Consult-Adult back pain with right-sided sciatica documented as of this encounter Results Hepatitis C Virus Miley with Reflex (04/17/2018 8:41 AM CDT) [facility] Signature Hepatitis C Nonreactive Nonreactive PN SOFT Antibody Specimen Anatomical Collection Method Collection Time Receive d Time (Source) Location / / Volume Laterality 04/17/2018 8:41 AM 8 CDT 12:10 PM CDT Narrative PN SOFT - 04/17/2018 1:39 [place] [address] CLIA number [id number] Shiraz Simeon PA-C LAB_1 Performing Organization Address City/State/ZIP Code Phon e Number PN SOFT [address] [place] [address] Lipid Panel - LDLD If Trig High (04/17/2018 8:41 AM CDT) Analysis Performed At [facility] logist Time Signature Cholesterol 185 0 - [...] - 04/17/2018 11:29 AM CDT Performed at [facility], [address] [place] [address] CLIA number [id number] Shiraz Simeon PA-C LAB_1 Performing Organization Address [facility]/ZIP Code Phon e Number PN SOFT [address] [place] [address] (ABNORMAL) Hemoglobin (04/17/2018 8:41 AM CDT) athologist Signature Hemoglobin 9.5 (L) 11.8 - 15.5 PN SOFT g/dL Specimen Anatomical Collection Method Collection Time Receive d Time (Source) Location / / Volume Laterality 04/17/2018 8:41 AM 8 8:41 CDT AM CDT Narrative PN SOFT - 04/17/2018 9:08 AM CDT Performed at [facility], [address] [place] [address] CLIA number [id number] Shiraz Simeon PA-C LAB_1 Performing Organization Address [facility] Phon e Number PN SOFT [address] [place] [address] [phone] (ABNORMAL) Ferritin (04/17/2018 8:41 AM CDT) athologist Signature Ferritin Serum 5 (L) 9 - 204 PN SOFT ng/mL Specimen Anatomical Collection Method Collection Time Receive d Time (Source) Location / / Volume Laterality 04/17/2018 8:41 AM 8 CDT 12:05 PM CDT Narrative PN SOFT - 04/17/2018 1:10 PM CDT Performed at [facility], [address] [place] [address] CLIA number [id number] hSiraz Simeon PA-C LAB_1 Performing Organization Address [facility] Phon e Number PN SOFT [address] [place] [address] documented in this encounter Visit Diagnoses Diagnosis Medicare annual wellness visit, subseque nt - Primary Routine general medical examination at a health care facility History of gastric ulcer Personal history of other diseases of di gestive system Chronic right-sided low back pain with r ight-sided sciatica (HRC) Iron deficiency anemia, unspecified iron deficiency anemia type Restless legs syndrome (RLS) Generalized anxiety disorder (HRC) Generalized anxiety disorder Hearing loss, unspecified hearing loss t ype, unspecified laterality Screening cholesterol level Screening for lipoid disorders Need for hepatitis C screening test Special screening examination for other specified viral diseases Encounter for Medicare annual wellness e xam Iron deficiency anemia, unspecified iron deficiency anemia type Screening cholesterol level Screening for lipoid disorders Need for hepatitis C screening test Special screening examination for other specified viral diseases documented in this encounter Care Teams Negative Stripper Relationship Specialty Start Date End Date Shiraz Simeon PA-C PCP - General 03/02/[address] [address] [id number] documented as of this encounter
--- OUTSIDE RECORDS SUMMARY | 2022-05-31 14:43 | XMS_ITS | Encounter Summary ---
:1945 Author Organization [employer] Address [address] [place] [address] Care Team Providers Name Role Phone Shiraz Simeon PA-C Primary Care Provider Reason for Visit Reason Comments Refill traMADol (ULTRAM) 50 MG tabl et [Pharmacy Med Name: TRAMADOL HCL 50MG TABS] Encounter Details Date Type Department Care Team Description 06/02/2019 Refill [facility] Shiraz Simeon PA-C Refill (traMADol [address] (ULTRAM) 50 MG tablet [place] [address] [place] [address] [Pharmacy Med Name: [phone] (Wo rk) TRAMADOL HCL 50MG TABS]) Social History Tobacco Use Types Packs/Day Years Used Date Smoking Tobacco: Every Day Cigarettes 0.3 Smokeless Tobacco: Never Alcohol Use Standard Drinks/Week Comments No 0 (1 standard drink = 0.6 oz pure alcoho l) Sex Assigned at Date Recorded Not on file documented as of this encounter Nursing Notes Shiraz Simeon PA-C - 06/03/2019 5:18 PM CST faxed TAMP OPERATOR Interface, Out Surescripts Prov Query - 06/02/2019 2:11 PM CST traMADol (ULTRAM) 50 MG tablet [Pharmacy Med Name: TRAMADOL HCL 50MG TABS] Medication started: 12/24/2013 Last ordered by SHIRAZ SIMEON: 04/29/2019 (34 days ago) QTY: 90, Refills: 0, Sig: take 1 tablet by mouth three times a day as needed for pain. for pain (changed but equivalent) -> Medication cannot be delegated. Last qualifying visit: 04/29/2019 (with SHIRAZ SIMEON) Next scheduled visit: None Powered by [email or web address], Reference: [id number], 06/02/2019 2:11:54 PM JACK TAMP OPERATOR, Pool: ARIANNE REFILL ([id number]) TAMP OPERATOR Interface, Out [employer] Prov Query - 06/02/2019 2:11 PM CST No Careplan note found by [email or web address]. TAMP OPERATOR documented in this encounter Plan of Treatment Not on filedocumented as of this encounter Visit Diagnoses Diagnosis Chronic right-sided low back pain with r ight-sided sciatica documented in this encounter Care Teams Print Finisher Relationship Specialty Start Date End Date Shiraz Simeon, KENISHA PCP - General 03/02/16 [address] [place] [address] documented as of this encounter
--- OUTSIDE RECORDS SUMMARY | 2022-05-31 14:43 | XMS_ITS | Encounter Summary ---
:1945 Author Organization [employer] Address [address] [place] [address] Care Team Providers Name Role Phone Shiraz Simeon PA-C Primary Care Provider Reason for Visit Reason Comments Refill traMADol (ULTRAM) 50 MG tabl et [Pharmacy Med Name: TRAMADOL HCL 50MG TABS] Encounter Details Date Type Department Care Team Description 10/01/2018 Refill [facility] Shiraz Simeon PA-C Refill (traMADol [address] (ULTRAM) 50 MG tablet [place] [address] [place] [address] [Pharmacy Med Name: [phone] (Wo rk) TRAMADOL HCL 50MG TABS]) Social [...] encounter Nursing Notes Shiraz Simeon PA-C - 10/01/2018 5:31 PM CDT Faxed Interface, Out Surescripts Prov Query - 10/01/2018 2:20 PM CDT traMADol (ULTRAM) 50 MG tablet [Pharmacy Med Name: TRAMADOL HCL 50MG TABS] Medication started: 10/30/2012 Last ordered by SHIRAZ SIMEON: 04/17/2018 (167 days ago) QTY: 180, Refills: 1, Sig: take 1 tablet bymouth two times a day. for pain (unchanged) -> Medication cannot be delegated. Last qualifying visit: 04/17/2018 (with SHIRAZ SIMEON) Next scheduled visit: None Powered by [employer], Reference: [id number], 10/01/2018 2:20:53 PM CDT, Pool: ARIANNE JARAMILLOILL ([id number]) Interface, Out [employer] Prov Query - 10/01/2018 2:20 PM CDT No Careplan note found by [employer]. documented in this encounter Plan of Treatment Not on filedocumented as of this encounter Visit Diagnoses Diagnosis Chronic right-sided low back pain with r ight-sided sciatica (HRC) documented in this encounter Care Teams Forestry Adviser Relationship Specialty Start Date End Date Shiraz Simeon PA-C PCP - General 03/02/16 [address] [place] [address] documented as of this encounter
--- OUTSIDE RECORDS SUMMARY | 2022-05-31 14:43 | XMS_ITS | Encounter Summary ---
:1945 Author Organization [employer] Address [address] [place] [address] Care Team Providers Name Role Phone Shiraz Simeon PA-C Primary Care Provider Reason for Visit Reason Comments Refill sertraline (ZOLOFT) 100 MG t ablet [Pharmacy Med Name: SERTRALINE HCL 100MG TABS] Encounter Details Date Type Department Care Team Description 03/07/2016 Refill [facility] Shiraz Simeon PA-C Refill (sertraline [address] (ZOLOFT) 100 MG tablet [place] [address] [place] [address] [Pharmacy Med Name: [phone] (Wo rk) SERTRALINE HCL 100MG TABS]) Social History Tobacco Use Types Packs/Day Years Used Date Smoking Tobacco: Every Day Cigarettes 0.3 30 Smokeless Tobacco: Never Comments: Smoking History Packs/day: Alcohol Use Standard Drinks/Week Comments No 0 (1 standard drink = 0.6 oz pure alcoho l) Sex Assigned at Date Recorded Not on file documented as of this encounter Nursing Notes Milla Simmons, RN - 03/08/2016 12:04 PM CDT OFFICE APPOINTMENT NEEDED Please notify patient to schedule an appointment within 30 days. Requested Prescriptions Signed Prescriptions Disp Refills ??? sertraline (ZOLOFT) 100 MG tablet 90 Tab 0 Sig: Take 1 Tab by mouth daily. Authorizing Provider: SHIRAZ SIMEON Ordering User: MILLA SIMMONS Interface, Out [employer] Query - 03/07/2016 11:34 AM CDT sertraline (ZOLOFT) 100 MG tablet [Pharmacy Med Name: SERTRALINE HCL 100MG TABS] - MEDICATION STARTED: 11/02/2011 - LAST REFILLED ON: 01/27/2015, QTY: 90, Refills: 4, Sig: take 1 tablet by mouth daily (every 24 hours). indications: anxiety (changed but equivalent) - REFILL: 3 months - RATIONALE: This is a courtesy refill. Patient is overdue for an office visit. This will be the last refill authorized by the protocol. - LAST QUALIFYING VISIT WITH SHIRAZ SIMEON: 01/27/2015 - NEXT SCHEDULED VISIT: None - SBP: 116mm Hg on 01/27/2015 - DBP: 68mm Hg on 01/27/2015 Powered by [employer], Reference: [id number], 03/07/2016 11:34:16 AM CDT, Pool: ARIANNE JARAMILLOILL ([id number]) documented in this encounter Plan of Treatment Not on filedocumented as of this encounter Visit Diagnoses Not on filedocumented in this encounter Care Teams Cup Machine Operator Relationship Specialty Start Date End Date Shiraz Simeon PA-C PCP - General 03/02/16 [place], [place] [id number] documented as of this encounter
--- OUTSIDE RECORDS SUMMARY | 2022-05-31 14:43 | XMS_ITS | Encounter Summary ---
:1945 Author Organization [facility] Address [address] [place] [address] Care Team Providers Name Role Phone Shiraz Simeon PA-C Primary Care Provider Reason for Visit Reason Comments Refill gabapentin (NEURONTIN) 400 M G capsule [Pharmacy Med Name: GABAPENTIN 400MG CAPS] Encounter Details Date Type Department Care Team Description 03/31/2019 Refill [facility] Shiraz Simeon PA-C Refill (gabapentin [address] (NEURONTIN) 400 [place] [address] [place] [address] capsule [Pharmacy Med [phone] (Wo rk) Name: GABAPENTIN 400MG CAPS]) Social History Tobacco Use Types Packs/Day Years Used Date Smoking Tobacco: Every Day Cigarettes 0.3 30 Smokeless Tobacco: Never Comments: Smoking History Packs/day: Alcohol Use Standard Drinks/Week Comments No 0 (1 standard drink = 0.6 oz pure alcoho l) Sex Assigned at Date Recorded Not on file documented as of this encounter Nursing Notes Aubree Majano - 04/04/2019 12:43 PM CDT Appointment letter sent in previous encounter in the last 30 days. Closing encounter. Alia Garcia RN - 04/01/2019 4:03 PM CDT OFFICE APPOINTMENT NEEDED Please notify patient to schedule an appointment within 30 days. Requested Prescriptions Pending Prescriptions Disp Refills ??? gabapentin (NEURONTIN) 400 MG capsule [Pharmacy Med Name: GABAPENTIN 400MG CAPS] 120 Capsule 1 Sig: TAKE FOUR CAPSULES EVERY EVENING FOR RESTLESS LEG SYNDROME Interface, Out Ynnovable Design Prov Query - 03/31/2019 8:09 AM CDT gabapentin (NEURONTIN) 400 MG capsule [Pharmacy Med Name: GABAPENTIN 400MG CAPS] Medication started: 12/24/2013 Last ordered by SHIRAZ SIMEON: 04/17/2018 (348 days ago) QTY: 120, Refills: 11, Sig: take four capsules every evening for restless leg syndrome (unchanged) -> Refill x 3 months (until due for an office visit) -> Calculate quantity and refills manually. They could not be estimated due to missing or unreadable information. Last qualifying visit: 04/17/2018 (with SHIRAZ SIMEON) Next scheduled visit: None Powered by [facility], Reference: [id number], 03/31/2019 8:09:23 AM CDT, Pool: ARIANNE REFILL ([id number]) documented in this encounter Plan of Treatment Not on filedocumented as of this encounter Visit Diagnoses Diagnosis Restless legs syndrome (RLS) documented in this encounter Care Teams Promotions Producer Relationship Specialty Start Date End Date Shiraz Simeon PA-C PCP - General 03/02/[address] [place] [address] documented as of this encounter
--- OUTSIDE RECORDS SUMMARY | 2022-05-31 14:43 | XMS_ITS | Encounter Summary ---
:1945 Author Organization [employer] Address [address] [address] Care Team Providers Name Role Phone Shiraz Simeon PA-C Primary Care Provider Reason for Visit Reason Comments Mouth Sores Diarrhea Encounter Details Date Type Department Care Team Description 10/14/2016 Hospital Encounter [facility] Kelly Denton PA-C Thrush; [facility] [address] Aphthous ulcer [address] [place], [place] [address] [phone] Social History Tobacco Use Types Packs/Day Years [...] Sign Reading Time Taken Comments Blood Pressure 98/60 10/14/2016 1:47 PM CDT Pulse 107 10/14/2016 1:47 PM CDT Temperature 37.7 ??C (99.8 ??F) 10/14/2016 1:47 PM CDT Respiratory Rate 18 10/14/2016 1:47 PM CDT Oxygen Saturation - - Inhaled Oxygen Concentration - - Weight - - Height - - Body Mass Index - - documented in this encounter Medications at Time of Discharge Medication Sig Dispensed Refills Start Date End Date clotrimazole (MYCELEX) Take 1 Tab by mouth 4 56 Tab 0 10/28/2016 10 MG lozenge times a day for 14 days. Dissolve slowly in mouth, use until thrush gone gabapentin (NEURONTIN) TAKE 3 CAPSULES BY 360 Cap 3 07/2508/09/2017 400 MG MOUTH DAILY FOR capsuleIndications: RESTLESS LEG Restless legs syndrome SYNDROME, MAY TAKE AN (RLS) ADDITIONAL ONE TAB IF NEEDED omeprazole (PRILOSEC) 20 Take 1 Cap by mouth 90 Cap 3 12/14/2017 MG capsuleIndications: daily. History of gastric ulcer sertraline (ZOLOFT) 100 Take 2 Tabs by mouth 180 Tab 3 12/14/2017 MG tabletIndications: daily. Generalized anxiety disorder (HRC) traMADol (ULTRAM) 50 MG Take 1 Tab by mouth 120 Tab 5 12/14/2017 tabletIndications: every 6 hours as Chronic back pain, needed for Pain (Take unspecified back 1 tablet by mouth location, unspecified every 6 hours as back pain laterality needed for Pain.). documented as of this encounter ED Notes Kelly Denton PA-C - 10/14/2016 2:22 PM CDT SUBJECTIVE: Shruti Corbin is a 71 y.o. female presents for Possible thrush. noteiced whiteish plaques in mouth and coated tongue. Painful. Also noted a aphthous ulcer on her lower lip which is not unusual for her she has had this in the past. These all followed 48 hour illness of vomiting and diarrhea. Patient said the vomiting and diarrhea all and away. She is up to a bland diet and been drinking lots of 7-Up. She had a slightly loose stool today otherwise most of her symptoms are resolved. She has not noted any fever or chills. She has not lightheaded or dizzy. She is not diabetic. Past Medical History: Past Medical History Diagnosis Date ??? RLS (restless legs syndrome) ??? PUD (peptic ulcer disease) ??? Generalized anxiety disorder (HRC) ??? Chronic back pain 11/16/2011 ??? Iron deficiency anemia 11/16/2011 ??? NSAID-induced gastric ulcer 11/16/2011 ??? Nephrolithiasis right sided Family HIstory: Family History Problem Relation Age of Onset ??? Abdominal Aortic Aneurysm Sister non-smoker, normotensive ??? Renal Failure Sister ??? PUD[Other] [OTHER] Mother ??? Osteoarthritis Mother ??? Cataract Mother ??? High Cholesterol Brother ??? Hypertension Brother ??? Retinal Detachment Brother ??? Diabetes Negative Family History ??? Glaucoma Negative Family History ??? Macular Degeneration Negative Family History ??? Amblyopia/Strabismus Negative Family History ??? Amblyopia/Strabismus Negative Family History Smoking or Smoke Exposure: Social History Social History ??? Marital Status: Spouse Name: Joselo Corbin ??? Number of Children: 2 ??? 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 Smoking status: Current Every Day Smoker -- 0.25 packs/day for 30 years Types: Cigarettes ??? Smokeless tobacco: Never Used Comment: Smoking History Packs/day: ??? Alcohol Use: No ??? Drug Use: No ??? Sexual Activity: Partners: Male Control/ Protection: Surgical Comment: YUNG-BSO Other Topics Concern ??? Exercise Yes walking Social History Narrative Adverse Drug Reactions: Allergies Allergen Reactions ??? Ferrous Sulfate Nausea . Medications: No current facility-administered medications for this encounter. Current Outpatient Prescriptions Medication Sig Dispense Refill ??? clotrimazole (MYCELEX) 10 MG lozenge Take 1 Tab by mouth 4 times a day for 14 days. Dissolve slowly in mouth, use until thrush gone 56 Tab 0 ??? gabapentin (NEURONTIN) 400 MG capsule TAKE 3 CAPSULES BY MOUTH DAILY FOR RESTLESS LEG SYNDROME, MAY TAKE AN ADDITIONAL ONE TAB IF NEEDED 360 Cap 3 ??? omeprazole (PRILOSEC) 20 MG capsule Take 1 Cap by mouth daily. 90 Cap 3 ??? sertraline (ZOLOFT) 100 MG tablet Take 2 Tabs by mouth daily. 180 Tab 3 ??? traMADol (ULTRAM) 50 MG tablet Take 1 Tab by mouth every 6 hours as needed for Pain (Take 1 tablet by mouth every 6 hours as needed for Pain.). 120 Tab 5 OBJECTIVE: Vital Signs: BP 98/60 mmHg Pulse 107 Temp(Src) 37.7 ??C (99.8 ??F) (Oral) Resp 18 General: Well-appearing. Head: Normocephalic. Eyes: PERRLA, full EOM. External exams normal. Ears: Normal pinnae, canals, andTM's. Nose: patent without deformity Throat: Moist mucous membranes. Small aphthous ulcer on the midlower lip mucous membranes. She has whitish plaques inside the upper and lower lip and on the gums and the back. Also on the tongue. Neck: Supple, without masses, lymphadenopathy or tenderness. Respiratory: Normal respiratory effort. Lungs are clear with good breath sounds. Heart: RR without murmurs, rubs, or gallops. Labs Reviewed BGS NO CHARGE Nonfasting fingerstick glucose 145 No results found. Medications - No data to display xray independantlly read and reviewed by me today xray also independantly read later by radiologist ASSESSMENT: 1. Thrush 2. Aphthous ulcer PLAN: Discharge Medication List as of 10/14/2016 2:18 PM START taking these medications Details clotrimazole (MYCELEX) 10 MG lozenge Take 1 Tab by mouth 4 times a day for 14 days. Dissolve slowly in mouth, use until thrush gone, Disp-56 Tab, R-0, QID Starting 10/14/2016, Until 10/28/16, Oral, Normal Patients can use lysine for her aphthous ulcer. This is worked well for her in the past. Thrush likely related to vomiting. Continued to progress to normal diet and maintain good hydration.Patient comfortable with plan. Patient was discharged in stable condition. Follow up with urgent care as needed. This documentation was done by voice recognition software and may grammatical contain errors. Radha Morin RN - 10/14/2016 2:21 PM CDT BG 145 documented in this encounter Plan of Treatment Scheduled Orders Name Type Priority Associated Diagnoses Order S chedule POCT Glucose Point of Care Routine Thrush Once today sta rting *Limited now for 1 Occur [facility] Locations*: starting 2016 until 7 documented as of this encounter Procedures Procedure Name Priority Date/Time Associated Diagnosis Comme nts BGS NO CHARGE Routine 10/14/2016 2:20 PM Results for this CDT procedure are i n the results section . documented in this encounter Results BGS No Charge (10/14/2016 2:20 PM CDT) athologist Signature Bedside Blood 145 mg/dL PN SOFT Glucose Test Comment: Performed at [facility] [address] [facility], [place]. [address] Specimen Anatomical Collection Method Collection Time Receive d Time (Source) Location / / Volume Laterality 10/14/2016 2:20 PM 7 2:25 CDT PM CDT Kelly Denton PA-C LAB_1 Performing Organization Address City/State/ZIP Code Phon e Number PN SOFT [address] [place] [address] documented in this encounter Visit Diagnoses Diagnosis Thrush Candidiasis of mouth Aphthous ulcer Oral aphthae Triage Assessment Note - Dwayne Dumont RN - 10/14/2016 1:44 PM CDT Pt c/o oral pain and mouth sores, onset yesterday. Pt states she had vomiting and diarrhea Sunday into Sunday evening. Pt started having diarrhea again today. Pt also states she has had body aches anddecreased appetite since Sunday. documented in this encounter Care Teams Blasting Miner Relationship Specialty Start Date End Date Shiraz Simeon PA-C PCP - General 03/02/16 [address] [place] [id number] documented as of this encounter
--- OUTSIDE RECORDS SUMMARY | 2022-05-31 14:43 | XMS_ITS | Encounter Summary ---
:1945 Author Organization [employer] Address [address] [place] [address] Care Team Providers Name Role Phone Shiraz Simeon PA-C Primary Care Provider Reason for Visit Reason Comments Refill gabapentin (NEURONTIN) 400 M G capsule [Pharmacy Med Name: GABAPENTIN 400MG CAPS] Encounter Details Date Type Department Care Team Description 03/31/2018 Refill [facility] Shiraz Simeon PA-C Refill (gabapentin [address] (NEURONTIN) [address] [place] [address] [place] [address] capsule [Pharmacy Med [phone] (Wo rk) Name: GABAPENTIN 400MG CAPS]) Social History Tobacco Use Types Packs/Day Years Used Date Smoking Tobacco: Every Day Cigarettes 0.3 30 Smokeless Tobacco: Never Comments: Smoking History Packs/day: Alcohol Use Standard Drinks/Week Comments No 0 (1 standard drink = 0.6 oz pure alcoho l) Sex Assigned at Date Recorded Not on file documented as of this encounter Nursing Notes Marline Birch RN - 04/01/2018 9:38 AM CDT Previously pended medication(s) have been addressed or refilled in another encounter or office visit. No further action is needed. Requested Prescriptions No prescriptions requested or ordered in this encounter Interface, Out Surescripts Prov Query - 03/31/2018 4:02 PM CDT gabapentin (NEURONTIN) 400 MG capsule [Pharmacy Med Name: GABAPENTIN 400MG CAPS] Medication started: 10/30/2012 Last ordered by SHIRAZ SIMEON: 12/14/2017 (107 days ago) QTY: 360, Refills: 0, Sig: take three capsules by mouth every day for restless leg syndrome may take an additional one capsule if needed (changed) -> This medication may not have been authorized by the requested provider. -> The requested sig has changed from the last order. -> An office visit is overdue (performed over 20 months ago, required every 12 months). Last qualifying visit: 07/25/2016 (with SHIRAZ SIMEON) Next scheduled visit: None Powered by [employer], Reference: [id number], 03/31/2018 4:02:56 PM CDT, Pool: ARIANNE REFILL ([id number]) documented in this encounter Plan of Treatment Not on filedocumented as of this encounter Visit Diagnoses Not on filedocumented in this encounter Care Teams Medical Device Sales Relationship Specialty Start Date End Date Shiraz Simeon, KENISHA PCP - General 03/02/16 [address] [place] [address] documented as of this encounter
--- OUTSIDE RECORDS SUMMARY | 2022-05-31 14:43 | XMS_ITS | Encounter Summary ---
:1945 Author Organization [facility] Address [address] [place] [address] Care Team Providers Name Role Phone Shiraz Simeon PA-C Primary Care Provider Reason for Visit Reason Comments MEDICATION CHECK Encounter Details Date Type Department Care Team Description 04/29/2019 Office Visit [facility] Lul e Shiraz Simeon, Restless legs syndrome (RLS) ; [address] PA-C History of gastric ulcer; [place] [address] Generalized anxiety disorder; [phone] [place] [address] Chronic right-sided low back pain with r ight-sided sciatica Social History Tobacco Use Types Packs/Day Years Used Date Smoking Tobacco: Every Day Cigarettes 0.3 Smokeless Tobacco: Never Alcohol Use Standard Drinks/Week Comments No 0 (1 standard drink = 0.6 oz pure alcoho l) Sex Assigned at Date Recorded Not on file documented as of this encounter Last Filed Vital Signs Vital Sign Reading Time Taken Comments Blood Pressure 135/76 04/29/2019 2:35 PM CDT Pulse 94 04/29/2019 2:35 PM CDT Temperature - - Respiratory Rate - - Oxygen Saturation - - Inhaled Oxygen Concentration - - Weight 50.8 kg (112 lb) 04/29/2019 2:35 PM CDT Height - - Body Mass Index 20.82 04/17/2018 7:48 AM CDT documented in this encounter Progress Notes Shiraz Simeon PA-C - 04/29/2019 2:40 PM CDT SUBJECTIVE: This 73 y.o. female presents today with the following concern(s): Medication check Chronic low back pain: She feels her back pain has not really been progressive, but she does note that there are a few days a week where she feels she would benefit from an additional dose of tramadol (currently prescription is written for twice daily use). She tolerates the medication well, denies sedation, constipation, fogginess, and inability to do ADLs or participate in activities she likes to do. Denies any radicular symptoms. [place] ANODE CREW SUPERVISOR reviewed and negative for concern. Restless Leg Syndrome: The gabapentin continues to work well for her when she takes 4 tablets at bedtime. She is sleeping well through the night without breakthrough symptoms. Does not feel overly groggy in the mornings after having taken the medication. Anxiety: Reviewed PHQ-9 and LILI-7 scores in clinic today. She denies suicidal ideation/intention/plan. Reports a good social support system. Taking sertraline daily and feels that her current dosage isappropriate. Would like to continue without change. Denies any adverse effects. History of gastric ulcer: Taking omeprazole daily on an empty stomach first thing in the morning. Denies any symptoms of heartburn, globus sensation, chest pain, abdominal pain, tarry black stools, fatigue, and unusual weight loss. She largely avoids NSAIDs. No other changes in her health over the last year. She has no other questions or concerns for me today. OBJECTIVE: Vital Signs: BP 135/76 (BP Location: Left Arm, BP Cuff Size: Regular) Pulse 94 Wt 112 lb (50.8 kg) BMI 20.82 kg/m?? General appearance: alert, cooperative, no distress, appears stated age, Lungs: clear to auscultation bilaterally, Heart: regular rate and rhythm, S1, S2 normal, no murmur, click, rub or gallop, Abdomen: soft, non-tender; bowel sounds normal; no masses, no organomegaly, Extremities: extremities normal, atraumatic, no cyanosis or edema, Pulses: 2+ and symmetric and Neurologic: Alert and oriented X 3, normal strength and tone. Normal symmetric reflexes. Normal coordination and gait ASSESSMENT/PLAN: Shruti was seen today for medication check. Diagnoses and all orders for this visit: Restless legs syndrome (RLS) - gabapentin (NEURONTIN) 400 MG capsule; Take 4 capsules every evening for Restless Leg Syndrome History of gastric ulcer - omeprazole (PRILOSEC) 20 MG capsule; Take 1 Capsule by mouth daily. Take 1 hour before a meal. Generalized anxiety disorder (HRC) - sertraline (ZOLOFT) 100 MG tablet; Take 1 Tablet by mouth daily. Chronic right-sided low back pain with right-sided sciatica - traMADol (ULTRAM) 50 MG tablet; Take 1 Tablet by mouth three times a day as needed for Pain. for pain Other orders - Influenza IIV3 (Trivalent) Fluzone Highdose, 65+ Yrs (78341) - Zoster (Shingrix) Counseling completed for all immunization components that were given to the patient today. Declines mammogram screening and bone density scan. Next medication check in 1 year. Sooner to clinic as needed. The patient was discharged ambulatory and in stable condition. Hortencia Llamas LPN - 04/29/2019 2:40 PM CDT Medicare and Vaccines Medicare Part B does not cover hepatitis vaccines (HepA, HepB, HepA+HepB) tetanus and diphtheria (Td) vaccine, tetanus, diphtheria and pertussis (Tdap) vaccine, varicella (chickenpox) vaccine or zoster(shingles) vaccines. Please be aware that you will receive a bill for the vaccine. The estimated cost per dose for HepA is $134, HepB - $145, HepA+HepB - $211, MMR - $147, Td - $72, Tdap - $85, varicella - $243 and zoster - $271. Medicare Part D may cover these vaccines. If you have Medicare Part D coverage, follow the instructions on the Information on Vaccines and Medicare handout that you were given at the time you received the vaccine. Please contact us if you did not receive this handout. 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
--- OUTSIDE RECORDS SUMMARY | 2022-05-31 14:43 | XMS_ITS | Encounter Summary ---
:1945 Author Organization [employer] Address [address] [place] [address] Care Team Providers Name Role Phone Shiraz Simeon PA-C Primary Care Provider Reason for Visit Reason Comments Refill sertraline (ZOLOFT) 100 MG t ablet [Pharmacy Med Name: SERTRALINE HCL 100MG TABS]; omeprazole (PRILOSEC) 20 MG capsule [Pharmacy Med Name: OMEPRAZOLE 20MG CPDR] Encounter Details Date Type Department Care Team Description 03/31/2019 Refill [facility] Shiraz Simeon PA-C Refill (sertraline [address] (ZOLOFT) [place] [address] [place] [address] [Pharmacy Med Name: [phone] (Wo rk) SERTRALINE HCL 100MG TABS]; om [...] this encounter Nursing Notes Aubree Majano - 04/01/2019 1:01 PM CDT Appointment Letter PRINTED & Sent Unique Martinez RN - 03/31/2019 1:58 PM CDT OFFICE APPOINTMENT NEEDED Please notify patient to schedule an appointment within 30 days. Requested Prescriptions Pending Prescriptions Disp Refills sertraline (ZOLOFT) 100 MG tablet [Pharmacy Med Name: SERTRALINE HCL 100MG TABS] 90 Tablet 0 Sig: TAKE 1 TABLET BY MOUTH DAILY. omeprazole (PRILOSEC) 20 MG capsule [Pharmacy Med Name: OMEPRAZOLE 20MG CPDR] 90 Capsule 0 Sig: TAKE 1 CAPSULE BY MOUTH DAILY. TAKE 1 HOUR BEFORE A MEAL. Interface, Out Surescripts Prov Query - 03/31/2019 8:09 AM CDT omeprazole (PRILOSEC) 20 MG capsule [Pharmacy Med Name: OMEPRAZOLE 20MG CPDR] Medication started: 12/24/2013 Last ordered by SHIRAZ SIMEON: 04/17/2018 (348 days ago) QTY: 90, Refills: 3, Sig: take 1 capsule bymouth daily. take 1 hour before a meal. (unchanged) -> Refill x 3 months (until due for an office visit) Last qualifying visit: 04/17/2018 (with SHIRAZ SIMEON) Next scheduled visit: None [employer]ered by [employer], Reference: [id number], 03/31/2019 8:09:23 AM CDT, Pool: ARIANNE REFILL ([id number]) sertraline (ZOLOFT) 100 MG tablet [Pharmacy Med Name: SERTRALINE HCL 100MG TABS] Medication started: 12/24/2013 Last ordered by SHIRAZ SIMEON: 04/17/2018 (348 days ago) QTY: 90, Refills: 3, Sig: take 1 tablet by mouth daily. (unchanged) -> Refill x 3 months (until due for an office visit) Last qualifying visit: 04/17/2018 (with SHIRAZ SIMEON) Next scheduled visit: None SBP: 108 mm Hg on 04/17/2018 DBP: 70 mm Hg on 04/17/2018 Powered by [employer], Reference: [id number], 03/31/2019 8:09:23 AM CDT, Pool: ARIANNE VALDEZ ([id number]) documented in this encounter Plan of Treatment Not on filedocumented as of this encounter Visit Diagnoses Diagnosis Generalized anxiety disorder (HRC) Generalized anxiety disorder Restless legs syndrome (RLS) History of gastric ulcer Personal history of other diseases of di gestive system documented in this encounter Care Teams Chaplaincy Relationship Specialty Start Date End Date Shiraz Simeon PA-C PCP - General 03/02/16 [address] [place] [address] documented as of this encounter
--- OUTSIDE RECORDS SUMMARY | 2022-05-31 14:43 | XMS_ITS | Encounter Summary ---
:1945 Author Organization [employer] Address [address] [place] [address] Care Team Providers Name Role Phone Nette Simeon PA-C Primary Care Provider Reason for Visit Reason Comments Prior Authorization For Medication pa needed for trama dol Encounter Details Date Type Department Care Team Description 10/02/2018 Telephone [facility] Nette Simeon, Prior Authorization For [address] PA-C Medication (pa needed for [place] [address] tramadol) [phone] [place] [address] Social History Tobacco Use Types Packs/Day Years Used Date Smoking Tobacco: Every Day Cigarettes 0.3 30 Smokeless Tobacco: Never Comments: Smoking History Packs/day: Alcohol Use Standard Drinks/Week Comments No 0 (1 standard drink = 0.6 oz pure alcoho l) Sex Assigned at Date Recorded Not on file documented as of this encounter Nursing Notes Marline Rogel LPN - 10/02/2018 1:58 PM CDT PA stared via phone for Tramadol 50mg. Will send outcome via fax. ET Demetria Spears - 10/02/2018 10:08 AM CDT PRIOR AUTHORIZATION OR CHANGE MEDICATIONS? Comment: Plan limits exceeded Pharmacy Name: [facility] Fax# or Address: [address] [facility] Clinician Name: nette fowler Drug Name/Strength: tramadol 50mg Drug [facility]: [id number] Si bid for pain Formulary Alternative: none given Insurance Carrier and phone number: felicita [phone] Felicita is giving a plan limit of 7 day maximum. Please do a prior auth for the 90 day supply with the insurance listed above. thank you documented in this encounter Plan of Treatment Not on filedocumented as of this encounter Visit Diagnoses Not on filedocumented in this encounter Care Teams Laborer Wrecking And Salvaging Relationship Specialty Start Date End Date Nette Simeon PA-C PCP - General 03/02/[address] [place] [address] documented as of this encounter
--- OUTSIDE RECORDS SUMMARY | 2022-05-31 14:43 | XMS_ITS | Encounter Summary ---
:1945 Author Organization [employer] Address [address] [place] [address] Care Team Providers Name Role Phone Shiraz Simeon PA-C Primary Care Provider Reason for Visit Reason Comments Refill traMADol (ULTRAM) 50 MG tabl et [Pharmacy Med Name: TRAMADOL HCL 50MG TABS] Encounter Details Date Type Department Care Team Description 12/14/2017 Refill [facility] Shiraz Simeon PA-C Refill (traMADol [address] (ULTRAM) 50 MG tablet [place] [address] [place] [address] [Pharmacy Med Name: [phone] (Wo rk) TRAMADOL HCL 50MG TABS]) Social [...] Nursing Notes Shiraz Simeon PA-C - 12/16/2017 9:40 AM CDT faxed Interface, Out Surescripts Prov Query - 12/14/2017 10:48 AM CDT traMADol (ULTRAM) 50 MG tablet [Pharmacy Med Name: TRAMADOL HCL 50MG TABS] Medication started: 10/30/2012 Last ordered by SHIRAZ SIMEON: 07/25/2016 (507 days ago) QTY: 120, Refills: 5, Sig: take 1 tab by mouth every 6 hours as needed for pain (take 1 tablet by mouth every 6 hours as needed for pain.). (changed) -> The requested sig has changed from the last order. -> Medication cannot be delegated. Last qualifying visit: 07/25/2016 (with SHIRAZ SIMEON) Next scheduled visit: None Powered by [employer], Reference: [id number], 12/14/2017 10:48:44 AM CDT, Pool: ARIANNE JARAMILLOILL ([id number]) Interface, Out [employer] Prov Query - 12/14/2017 10:48 AM CDT No Careplan note found by [employer]. documented in this encounter Plan of Treatment Not on filedocumented as of this encounter Visit Diagnoses Not on filedocumented in this encounter Care Teams Tree Puller Relationship Specialty Start Date End Date Shiraz Simeon, PAMisbahC PCP - General 03/02/16 [place] [address] documented as of this encounter
--- OUTSIDE RECORDS SUMMARY | 2022-05-31 14:43 | XMS_ITS | Encounter Summary ---
:1945 Author Organization [employer] Address [address] [place] [address] Care Team Providers Name Role Phone Shiraz Simeon PA-C Primary Care Provider Reason for Visit Reason Comments Medicare Encounter Details Date Type Department Care Team Description 04/16/2018 Telephone [facility] Shiraz Simeon PA-C Medicare [address] [place] [address] [place] [address] [place] [address] [phone] (Wo rk) Social History Tobacco Use Types Packs/Day Years Used Date Smoking Tobacco: Every Day Cigarettes 0.3 30 Smokeless Tobacco: Never Comments: Smoking History Packs/day: Alcohol Use Standard Drinks/Week Comments No 0 (1 standard drink = 0.6 oz pure alcoho l) Sex Assigned at Date Recorded Not on file documented as of this encounter Nursing Notes Vijaya Wallis E - 04/16/2018 9:03 AM CDT Appointment Information: Visit Type: PHYSICAL Date: 04/17/2018 Dept: [facility] Provider: SHIRAZ SIMEON Time: 7:40 AM Length: 40 min PC PSC [facility] FOLLOW-UP Date of Last Physical: 12/24/13 Date of Last Welcome to Medicare/Annual Wellness: Not in epic Insurance Verification: Verified by: [facility] Cheat Sheet Insurance Coverage: Regular physical ok? Y Return Calls to Patients: -No call was needed. Mailers: -No paper final inspector needed. documented in this encounter Plan of Treatment Not on filedocumented as of this encounter Visit Diagnoses Not on filedocumented in this encounter Care Teams Factory Superintendent Relationship Specialty Start Date End Date Shiraz Simeon PA-C PCP - General 03/02/16 [address] [place], [place] [address] documented as of this encounter
--- OUTSIDE RECORDS SUMMARY | 2022-05-31 14:43 | XMS_ITS | Encounter Summary ---
:1945 Author Organization [employer] Address [address] [place] [address] Care Team Providers Name Role Phone Shiraz Simeon PA-C Primary Care Provider Reason for Visit Reason Comments Refill sertraline (ZOLOFT) 100 MG t ablet [Pharmacy Med Name: SERTRALINE HCL 100MG TABS] Encounter Details Date Type Department Care Team Description 07/10/2018 Refill [facility] Shiraz Simeon PA-C Refill (sertraline [address] (ZOLOFT) 100 MG tablet [place] [address] [place] [address] [Pharmacy Med Name: [phone] (Wo rk) SERTRALINE HCL 100MG TABS]) Social [...] Notes Interface, Out Surescripts Prov Query - 07/10/2018 8:47 AM CST sertraline (ZOLOFT) 100 MG tablet [Pharmacy Med Name: SERTRALINE HCL 100MG TABS] Medication started: 10/30/2012 Last ordered by SHIRAZ SIMEON: 04/17/2018 (84 days ago) QTY: 90, Refills: 3, Sig: take 1 tablet by mouth daily. (changed) -> The patient is requesting refills too soon, the current prescription is due to run out on 04/12/2019. -> The requested sig has changed from the last order. -> Refill x 12 months, qty: 180, refills: 3 (until due for an office visit) Last qualifying visit: 04/17/2018 (with SHIRAZ SIMEON) Next scheduled visit: None SBP: 108 mm Hg on 04/17/2018 DBP: 70 mm Hg on 04/17/2018 Powered by [employer], Reference: [id number], 07/10/2018 8:47:16 AM SPIKE, Clif: ARIANNE REFILL ([id number]) SEARCH EVALUATOR documented in this encounter Plan of Treatment Not on filedocumented as of this encounter Visit Diagnoses Not on filedocumented in this encounter Care Teams Manager Credit Collections Relationship Specialty Start Date End Date Shiraz Simeon, PAMisbahC PCP - General 03/02/16 [address], [place] [address] documented as of this encounter
--- OUTSIDE RECORDS SUMMARY | 2022-05-31 14:43 | XMS_ITS | Encounter Summary ---
:1945 Author Organization [employer] Address [address] [place] [address] Care Team Providers Name Role Phone Shiraz Simeon PA-C Primary Care Provider Reason for Visit Reason Comments MEDICATION CHECK Encounter Details Date Type Department Care Team Description 07/25/2016 Office Visit [facility] Shiraz Simeon, History of gastric ulcer (Pr imary Dx); [address] PA-C Restless legs syndrome (RLS); [place] [address] Chronic back pain, unspecified back loca tion, unspecified back pain laterality; [phone] [place] [address] Generalized anxiety disorder; [phone] Iron deficiency anemia, unspecified iron deficiency anemia type; (Work) Need for influenza vaccination Social History Tobacco Use Types Packs/Day Years [...] Sign Reading Time Taken Comments Blood Pressure 124/72 07/25/2016 11:01 AM GEOTECHNICIAL PROPERTIES TECHNICIAN Pulse - - Temperature - - Respiratory Rate - - Oxygen Saturation - - Inhaled Oxygen Concentration - - Weight 51.3 kg (113 lb) 07/25/2016 11:01 AM GEOTECHNICIAL PROPERTIES TECHNICIAN Height 162.6 cm (5' 4) 07/25/2016 11:01 AM GEOTECHNICIAL PROPERTIES TECHNICIAN Body Mass Index 19.4 07/25/2016 11:01 AM GEOTECHNICIAL PROPERTIES TECHNICIAN documented in this encounter Progress Notes Shiraz Simeon PA-C - 07/25/2016 11:12 AM CST SUBJECTIVE: This 70 y.o. female presents today with the following concern(s): Medication check - multiple LILI-7 score of 7, PHQ-9 score of 2. Denies suicidal ideation/intention/plan. Reports a good social support system. She has known for over a year that her 's cognition is not right, but he has been stubborn about evaluation. She has expressed her concerns to his doctor, and just over the last couple of months, testing has been done that has confirmed dementia. Primarily having issues with short-term memory issues, and she tells me that he basically lives in the past. He is still insistent that there is nothing wrong, but they saw a neurologist this morning who convinced him to start Aricept. Shruti works from home, so he is basically never alone, and she is hopeful that starting medication now will arrest further progression for awhile. She enjoys the support of their kids. The whole year has been stressful. After discussion, she would be interested in increasing her sertraline dosage. She tolerates the sertraline well. We discussed clinic support for her and her going forward, and I gave her Leanna Das's card for future reference. Tolerating omeprazole well, and it continues to manage her PUD very well. No concerns about it. Due for recheck of her hemoglobin and ferritin. Energy level is good, no headaches or shortness of breath. The gabapentin is working very well for both RLS and chronic back pain. Tolerates it well. No need for dosage change. She takes about two tramadol a day for pain management, as well. Tolerating it well, and no concerns for overuse or increasing need. Adverse Drug Reactions: is allergic to ferrous sulfate. Medications: has a current medication list which includes the following prescription(s): gabapentin,omeprazole, sertraline, and tramadol. Tobacco History: reports that she has been smoking Cigarettes. She has a 7.5 pack-year smoking history. She has never used smokeless tobacco. Alcohol History: reports that she does not drink alcohol. Marital History: OBJECTIVE: Vital Signs: BP 124/72 mmHg Ht 5' 4 (1.626 m) Wt 113 lb (51.256 kg) BMI 19.39 kg/m2 General appearance: alert, cooperative, no distress, appears stated age, Back: symmetric, no curvature. ROM normal. No CVA tenderness., Lungs: clear to auscultation bilaterally, Heart: regular rate andrhythm, S1, S2 normal, no murmur, click, rub or gallop and Neurologic: Alert and oriented X 3, normal strength and tone. Normal symmetric reflexes. Normal coordination and gait ASSESSMENT/PLAN: Shruti was seen today for medication check. Diagnoses and all orders for this visit: History of gastric ulcer - omeprazole (PRILOSEC) 20 MG capsule; Take 1 Cap by mouth daily. Restless legs syndrome (RLS) - gabapentin (NEURONTIN) 400 MG capsule; TAKE 3 CAPSULES BY MOUTH DAILY FOR RESTLESS LEG SYNDROME, MAY TAKE AN ADDITIONAL ONE TAB IF NEEDED Chronic back pain, unspecified back location, unspecified back pain laterality - traMADol (ULTRAM) 50 MG tablet; Take 1 Tab by mouth every 6 hours as needed for Pain (Take 1 tablet by mouth every 6 hours as needed for Pain.). Generalized anxiety disorder (HRC) - Increase: sertraline (ZOLOFT) 100 MG tablet; Take 2 Tabs by mouth daily. - Discussed the purpose of the medication, how to increase, potential benefits, and potential adverse effects. - Follow up as needed. Iron deficiency anemia, unspecified iron deficiency anemia type - Ferritin; Future - Hemoglobin; Future Need for influenza vaccination - Influenza (Fluarix or Fluzone 0.5, 3+ yrs) Vaccines administered per provider's orders and charted in EpicWeb. No contraindications or precautions were noted per completed [facility] clinic form [Immunization Contraindication Checklist, edition 11/2002], which was given to parent/patient. See EpicWeb immunization form for immunization details. Shiraz Simeon PA-C 11:13 AM 07/25/2016 The patient was discharged ambulatory and in stable condition. ECHNICIAL PROPERTIES TECHNICIAN documented in this encounter Plan of Treatment Not on filedocumented as of this encounter Results (ABNORMAL) Hemoglobin (07/25/2016 11:49 AM GEOTECHNICIAL PROPERTIES TECHNICIAN) P athologist Signature Hemoglobin 10.1 (L) 11.8 - 15.5 PN SOFT g/dL Specimen Anatomical Collection Method Collection Time Receive d Time (Source) Location / / Volume Laterality 07/25/2016 11:49 07/25/2016 AM GEOTECHNICIAL PROPERTIES TECHNICIAN 11:49 AM GEOTECHNICIAL PROPERTIES TECHNICIAN Narrative PN SOFT - 07/25/2016 12:11 PM GEOTECHNICIAL PROPERTIES TECHNICIAN Performed at [facility], [address] [place], [place] [address] [address] CLIA number [id number] Shiraz Simeon PA-C LAB_1 Performing Organization Address City/[facility]/ZIP [facility] Phon e Number PN SOFT [address] [place] [address] Ferritin (07/25/2016 11:49 AM GEOTECHNICIAL PROPERTIES TECHNICIAN) athologist Signature Ferritin Serum 9 9 - 204 PN SOFT ng/mL Specimen Anatomical Collection Method Collection Time Receive d Time (Source) Location / / Volume Laterality 07/25/2016 11:49 07/25/2016 3:26 AM GEOTECHNICIAL PROPERTIES TECHNICIAN PM GEOTECHNICIAL PROPERTIES TECHNICIAN Narrative PN SOFT - 07/25/2016 4:19 PM GEOTECHNICIAL PROPERTIES TECHNICIAN Performed at [facility], [address] [place] [address] CLIA number [id number] Shiraz Simeon PA-C LAB_1 Performing Organization Address [facility] Phon e Number PN SOFT [address] [place] [address] [phone] documented in this encounter Visit Diagnoses Diagnosis History of gastric ulcer - Primary Personal history of other diseases of di gestive system Restless legs syndrome (RLS) Chronic back pain, unspecified back loca tion, unspecified back pain laterality Generalized anxiety disorder (HRC) Generalized anxiety disorder Iron deficiency anemia, unspecified iron deficiency anemia type Need for influenza vaccination Need for prophylactic vaccination and in oculation against influenza Iron deficiency anemia, unspecified iron deficiency anemia type documented in this encounter Care Teams Air Grinder Relationship Specialty Start Date End Date Shiraz Simeon PA-C PCP - General 03/02/16 [facility] [place] [address] documented as of this encounter
--- OUTSIDE RECORDS SUMMARY | 2022-05-31 14:43 | XMS_ITS | Encounter Summary ---
:1945 Author Organization [employer] Address [address] [place] [address] Care Team Providers Name Role Phone Shiraz Simeon PA-C Primary Care Provider Reason for Visit Reason Comments Preop Exam Encounter Details Date Type Department Care Team Description 06/05/2019 Pre-Op Visit Shiraz Cabezas, Preoperative examination (Pr imary Dx); [address] PA-C Age-related cataract of both eyes, unspe cified age-related cataract type [place] [address] [address] [phone] [place] [id number] Social History Tobacco Use Types Packs/Day Years Used Date Smoking Tobacco: Every Day Cigarettes 0.3 Smokeless Tobacco: Never Alcohol Use Standard Drinks/Week Comments No 0 (1 standard drink = 0.6 oz pure alcoho l) Sex Assigned at Date Recorded Not on file documented as of this encounter Last Filed Vital Signs Vital Sign Reading Time Taken Comments Blood Pressure 104/68 06/05/2019 1:10 PM SERVICE DELIVERY DIRECTOR Pulse 74 06/05/2019 1:10 PM SERVICE DELIVERY DIRECTOR Temperature - - Respiratory Rate - - Oxygen Saturation - - Inhaled Oxygen Concentration - - Weight 47.2 kg (104 lb) 06/05/2019 1:10 PM SERVICE DELIVERY DIRECTOR Height - - Body Mass Index 19.33 04/17/2018 7:48 AM CDT documented in this encounter Nursing Notes Hortencia Llamas LPN - 06/05/2019 1:20 PM CST Declines MAWL today ICE DELIVERY DIRECTOR documented in this encounter OR Notes H&P - Shiraz Simeon PA-C - 06/05/2019 1:20 PM CST PREOPERATIVE ASSESSMENT Date of Service: 06/05/2019 Date of : 1945 Age: 73 y.o. Sex: female Preoperative Evaluation completed by: Shiraz Simeon PA-C Primary care physician: Shiraz Simeno PA-C [phone] CHIEF COMPLAINT Pre-Operative Evaluation ANTICIPATED PROCEDURE Chief Complaint Patient presents with ??? Preop Exam BILATERAL cataract extraction and LASIK Risk Factors/Review of Systems: (Please see flowsheets for details) Cardiovascular risks negative except for: Renal risks negative except for: Neuro risks negative except for: GI risks negative except for: Pulmonary risks negative except for: Endocrine/Nutrition risks negative except for: Hematologic Disease risks negative except for: Anemia: Musculoskeletal/Skin risks negative except for: Mental Health risks negative except for: Code Status: Full Code, Other risk factors negative except for: Complete review of systems is otherwise negative. Patient Active Problem List Diagnosis ??? Generalized anxiety disorder (HRC) ??? Restless legs syndrome (RLS) ??? Chronic back pain ??? Iron deficiency anemia ??? History of gastric ulcer ??? Controlled substance agreement signed Past Medical History: Diagnosis Date ??? Chronic back pain 11/16/2011 ??? Generalized anxiety disorder (HRC) ??? Iron deficiency anemia 11/16/2011 ??? Nephrolithiasis right sided ??? NSAID-induced gastric ulcer 11/16/2011 ??? PUD (peptic ulcer disease) ??? RLS (restless legs syndrome) Past Surgical History: Procedure Laterality Date ??? YUNG AND BSO abnormal pap, patient requested Family History Problem Relation Age of Onset ??? Osteoarthritis Mother ??? Cataract Mother ??? Other (PUD) Mother ??? Abdominal Aortic Aneurysm Sister non-smoker, normotensive ??? Renal Failure Sister ??? High Cholesterol Brother ??? Hypertension Brother ??? Retinal Detachment Brother ??? Diabetes Negative Family History ??? Glaucoma Negative Family History ??? Macular Degeneration Negative Family History ??? Amblyopia/Strabismus Negative Family History Social History Tobacco Use ??? Smoking status: Current Every Day Smoker Packs/day: 0.25 Types: Cigarettes ??? Smokeless tobacco: Never Used Substance Use Topics ??? Alcohol use: No Current Outpatient Medications Medication Sig Dispense Refill ??? chlorhexidine gluconate (PERIDEX) 0.12 % solution ??? gabapentin (NEURONTIN) 400 MG capsule Take 4 capsules every evening for Restless Leg Syndrome 360 Capsule 3 ??? omeprazole (PRILOSEC) 20 MG capsule Take 1 Capsule by mouth daily. Take 1 hour before a meal. 90Capsule 3 ??? sertraline (ZOLOFT) 100 MG tablet Take 1 Tablet by mouth daily. 90 Tablet 3 ??? traMADol (ULTRAM) 50 MG tablet TAKE 1 TABLET BY MOUTH THREE TIMES A DAY NEEDED FOR PAIN. 90 Tablet 0 No current facility-administered medications for this visit. Allergies Allergen Reactions ??? Ferrous Sulfate Nausea PHYSICAL EXAMINATION Pulse: 74 (06/05/19 1310) BP: 104/68 (06/05/19 1310) Weight: 104 lb (47.2 kg) (06/05/19 1310) General Appearance: Normal HEENT: Normal Neck: Normal Lungs: Normal Heart: Normal Abdomen: Normal Extremities: Normal Skin: Normal Neurologic: Normal TEST RESULTS AND DATE EKG done: Today: 06/05/2019. Normal sinus rhythm, no acute ST or T wave changes, no bundle branch block. Labs done: No ASSESSMENT 1. Preoperative Assessment: This patient has been examined by me today and has been found to be a suitable candidate for surgery: Yes 2. BILATERAL cataracts RECOMMENDATIONS AND PLAN Day of surgery testing: none Medication recommendations including insulin / diabetes: no adjustments needed. Additional screening recommended: no Consult (Cardiology/other): no Additional test results attached: none Recommend RT assessment post op for Oxygenation and ventilation monitoring: no Other: no - Do not eat anything after midnight the evening before your surgery. - It is OK to drink water or Gatorade up to 4 hours before your surgery. - You may take medicines before surgery with a small sip of water ABOVE RECOMMENDATIONS WERE REVIEWED WITH PATIENT: yes Shiraz Simeon PA-C 06/05/2019 ICE DELIVERY DIRECTOR documented in this encounter Plan of Treatment Not on filedocumented as of this encounter Procedures Procedure Name Priority Date/Time Associated Diagnosis Comme nts ECG 12 LEAD Routine 06/05/2019 1:39 PM Preoperative Results f or this OUTPATIENT SERVICE DELIVERY DIRECTOR examination procedure are i n the results section. documented in this encounter Results ECG 12 Lead Outpatient (MUSE) (06/05/2019 1:39 PM SERVICE DELIVERY DIRECTOR) P athologist Signature Ventricular Rate 70 BPM [facility] Atrial Rate 70 BPM [facility] P-R Interval 154 ms [facility] QRS Duration 86 ms [facility] QT 410 ms [facility] QTc 442 ms [facility] P [place] 69 degrees [facility] R [place] 18 degrees [facility] T [place] 50 degrees [facility] Specimen (Source) Anatomical Collection Method Collection Time Re ceived Time Location / / Volume Laterality 06/05/2019 1:39 PM SERVICE DELIVERY DIRECTOR Narrative [facility] - 06/05/2019 2:27 PM SERVICE DELIVERY DIRECTOR Sinus rhythm Minimal voltage criteria for LVH, may be normal variant Borderline ECG When compared with ECG of 03-NOV-2011 09 :15, No significant change was found Confirmed by Leeroy Wynne ([id number]) on 06/05/2019 2:27:07 PM Procedure Note Leeroy Wynne MD - 06/05/2019Formatti ng of this note might be different from the original. Sinus rhythm Minimal voltage criteria for LVH, may be normal variant Borderline ECG When compared with ECG of 03-NOV-2011 09 :15, No significant change was found Confirmed by Leeroy Wynne ([id number]) on 06/05/2019 2:27:07 PM Shiraz Simeon PA-C PN ECG ORDERABLES Performing Organization Address City/State/ZIP Code Phon e Number [facility] [address] [place] [address] documented in this encounter Visit Diagnoses Diagnosis Preoperative examination - Primary Preoperative examination, unspecified Age-related cataract of both eyes, unspe cified age-related cataract type documented in this encounter Care Teams Quarry Supervisor Open Pit Relationship Specialty Start Date End Date Shiraz Simeon PA-C PCP - General 03/02/16 [address] [place] [address] documented as of this encounter
--- OUTSIDE RECORDS SUMMARY | 2022-05-31 14:44 | XMS_ITS | Encounter Summary ---
:1945 Author Organization [facility] Address [address] [place] [address] Care Team Providers Name Role Phone Shiraz Simeon PA-C Primary Care Provider Reason for Visit Reason Comments Infusion Encounter Details Date Type Department Care Team Description 01/08/[address] [facility] ane mauricio (Primary Dx) Oncology Treatment R ooms [address] [place], [place] [id number] Social History Tobacco Use Types Packs/Day Years Used Date Smoking Tobacco: Never Assessed Sex Assigned at Date Recorded Not on file documented as of this encounter Last Filed Vital Signs Vital Sign Reading Time Taken Comments Blood Pressure 106/59 01/08/2013 1:15 PM CDT Pulse 68 01/08/2013 1:15 PM CDT Temperature - - Respiratory Rate - - Oxygen Saturation - - Inhaled Oxygen Concentration - - Weight - - Height - - Body Mass Index - - documented in this encounter Medications at Time of Discharge Medication Sig Dispensed Refills Start Date End Date gabapentin (AKA Take 2-3 capsules by 540 capsule 4 3 12/24/2013 NEURONTIN) 100 MG mouth 2 TIMES DAILY capsuleIndications: AC PRN for Other. Chronic back pain sertraline (AKA ZOLOFT) Take 1 tablet by 30 tablet 12 201212/24/2013 50 MG mouth daily (every tabletIndications: 24 hours). Take 1/2 Generalized anxiety tab daily x 6 days, disorder (HRC) then 1 tab daily thereafter. traMADol (AKA ULTRAM) Take 1 tablet by 120 tablet 12 10/31/19 13 12/24/2013 50 MG mouth every 6 hours tabletIndications: as needed for Pain. Chronic back pain omeprazole (PRILOSEC) Take 1 capsule by 60 capsule 12 013 12/24/2013 20 MG mouth 2 times daily capsuleIndications: (before meals). NSAID-induced gastric ulcer documented as of this encounter Miscellaneous Notes Medication History - Cameron Reddy MD - 01/08/2013 11:59 PM CDT INPATIENT MEDS Encounter Date: 01/08/13 prochlorperazine (COMPAZINE) tablet 10 mg Start Date:01/08/13, End Date:01/08/13, Frequency:ONCE Taken Dose Action User Route Site Recorded Comment Reason 01/08/13 1339 10 mg Given Kate Mcbride RN Oral - 01/08/13 1340 - - 0.9% sodium chloride flush 500 mL Start Date:01/08/13, End Date:01/08/13, Frequency:ONCE Taken Dose Action User Route Site Recorded Comment Reason 01/08/13 1440 500 mL Infused Kate Mcbride RN Intravenous - 01/23/13 1630 - - 01/08/13 1340 500 mL Started Kate Mcbride RN Intravenous - 01/08/13 1340 - - 0.9% sodium chloride latex free syringe 20 mL Start Date:01/08/13, End Date:01/08/13, Frequency:PRN Taken Dose Action User Route Site Recorded Comment Reason 01/08/13 1340 10 mL Given Kate Mcbride RN Intravenous - 01/08/13 1340 - - iron sucrose (VENOFER) 200 mg in 0.9% sodium chloride 100 mL infusion Start Date:01/08/13, End Date:01/08/13, Frequency:ONCE Taken Dose Action User Route Site Recorded Comment Reason 01/08/13 1440 200 mg Infused Kate Mcbride RN Intravenous - 01/23/13 1630 - - 01/08/13 1340 200 mg Started Kate Mcbride RN Intravenous - 01/08/13 1340 - - documented in this encounter Plan of Treatment Not on filedocumented as of this encounter Visit Diagnoses Diagnosis Iron deficiency anemia - Primary Iron deficiency anemia, unspecified documented in this encounter Care Teams Shearing Machine Tender Relationship Specialty Start Date End Date Shiraz Simeon PA-C PCP - General 11/02/11 03/01/[address] [place] [id number] documented as of this encounter
--- OUTSIDE RECORDS SUMMARY | 2022-05-31 14:44 | XMS_ITS | Encounter Summary ---
:1945 Author Organization [facility] Address [address] [place] [address] Care Team Providers Name Role Phone Shiraz Simeon PA-C Primary Care Provider Encounter Details Date Type Department Care Team Description 12/24/2013 Lab Visit [facility] Screening cholesterol level; [address] Screening for diabetes [place] [address] Iron deficiency anemia [phone] Social History Tobacco Use Types Packs/Day Years Used Date Smoking Tobacco: Never Assessed Sex Assigned at Date Recorded Not on file documented as of this encounter Plan of Treatment Not on filedocumented as of this encounter Procedures Procedure Name Priority Date/Time Associated Diagnosis Comme nts GLUCOSE Routine 12/24/2013 9:17 AM Screening for Results for this CDT diabetes mellitus procedure are in the results section. LIPID PANEL AND Routine 12/24/2013 9:17 AM Screening Result s for this DIRECT LDL(IF CDT cholesterol level procedure are in NEEDED) the results section. HEMOGLOBIN, BLOOD Routine 12/24/2013 9:17 AM Iron deficiency R esults for this CDT anemia procedure are i n the results section. FERRITIN Routine 12/24/2013 9:17 AM Iron deficiency Result s for this CDT anemia procedure are i n the results section. documented in this encounter Results (ABNORMAL) Ferritin (12/24/2013 9:17 AM CDT) P athologist Signature Ferritin Serum 6 (L) 10 - 291 HP CONVERSION ng/mL Specimen Anatomical Collection Method Collection Time Receive d Time (Source) Location / / Volume Laterality 12/24/2013 9:17 AM 4 CDT 12:17 PM CDT Shiraz Simeon PA-C LAB_1 Performing Organization Address City/State/ZIP Code Phon e Number HP CONVERSION (ABNORMAL) Hemoglobin, Blood (12/24/2013 9:17 AM CDT) athologist Signature Hemoglobin 11.3 (L) 11.8 - 15.5 HP CONVERSION g/dL Specimen Anatomical Collection Method Collection Time Receive d Time (Source) Location / / Volume Laterality 12/24/2013 9:17 AM 4 9:16 CDT AM CDT Narrative HP CONVERSION - 12/24/2013 9:24 AM CDT Performed at [facility], [address] [place] [address] Shiraz Simeon PA-C LAB_1 Performing Organization Address City/[facility]/ZIP Code Phon e Number HP CONVERSION GLUCOSE (12/24/2013 9:17 AM CDT) athologist Signature Lab Glucose 93 60 - 100 HP CONVERSION mg/dL Specimen Anatomical Collection Method Collection Time Receive d Time (Source) Location / / Volume Laterality 12/24/2013 9:17 AM 4 CDT 11:04 AM CDT Narrative HP CONVERSION - 12/24/2013 11:48 AM CDT Performed at [facility], [address] [place], [place] [id number] Shiraz Simeon PA-C LAB_1 Performing Organization Address City/[facility]/ZIP Code Phon e Number HP CONVERSION Lipid Panel and Direct LDL(If Needed) (12/24/2013 9:17 AM CDT) [facility] Method Time Signature Cholesterol 158 0 - 200 HP CONVERSION mg/dL Triglycerides 109 0 - 149 HP CONVERSION mg/dL HDL Cholesterol 47 >39 mg/dL HP CONVERSION Cholesterol/HDL 3.4 HP CONVERSION Ratio Screen LDL Calculated 89 19 - 130 HP CONVERSION mg/dL Length Of Fast 3.0 HP CONVERSION Specimen Anatomical Collection Method Collection Time Receive d Time (Source) Location / / Volume Laterality 12/24/2013 9:17 AM 4 CDT 11:04 AM CDT Narrative HP CONVERSION - 12/24/2013 11:48 AM CDT Performed at [facility], [address] [place] [id number] Shiraz Simeon PA-C LAB_1 Performing Organization Address City/State/ZIP Code Phon e Number HP CONVERSION documented in this encounter Visit Diagnoses Diagnosis Screening cholesterol level Screening for lipoid disorders Screening for diabetes mellitus Iron deficiency anemia Iron deficiency anemia, unspecified documented in this encounter Care Teams Plodding Operator Relationship Specialty Start Date End Date Shiraz Simeon PA-C PCP - General 11/02/11 03/01/16 [address] [place] [address] documented as of this encounter
--- OUTSIDE RECORDS SUMMARY | 2022-05-31 14:44 | XMS_ITS | Encounter Summary ---
:1945 Author Organization [facility] Address [address] [address] Care Team Providers Name Role Phone Shiraz Simeon PA-C Primary Care Provider Reason for Visit Reason Comments Follow-up Back Pain HIP PAIN Encounter Details Date Type Department Care Team Description 01/27/2014 Office Visit Pravin Hurt Chronic b ack pain (Primary Dx); Chiropractic [facility] Bautista Pain in the hip; [address] [address] [place] Somatic dysfunction of thoracic region [place] [address] [place] [place] [phone] (Wo rk) Social History Tobacco Use Types Packs/Day Years Used Date Smoking Tobacco: Never Assessed Sex Assigned at Date Recorded Not on file documented as of this encounter Progress Notes Pravin Reyes DC - 02/08/2014 5:23 PM CDT PHYSICAL MEDICINE AND REHABILITATION CHIROPRACTIC FOLLOW-UP VISIT Initial consultation date: 07 January 2014 Nature condition: Chronic SUBJECTIVE: Follows up from complaints of chronic lumbosacral back Pain today rated 2/10 on visual analog scale.Overall activity tolerances rated as fair-good. Symptoms continue, however reports some decreased back stiffness. She continues her recommended home exercises. OBJECTIVE: motion-palpation restrictions: Extension T12, L1, lumbopelvic flexion restriction. ASSESSMENT: Diagnosis (ICD9) ICD-9-CM 1. Chronic back pain 724.5 338.29 2. Pain in the hip 719.45 3. Somatic dysfunction of thoracic region 739.2 PLAN: 1. CPT 72332 Chiropractic manipulative therapy: T12, L1, manually controlled lumbopelvic traction with WADSWORTH flexion-distraction technique. See objective. Briefly reviewed spine sparing lifting techniques. 2. Procedures tolerated well. Continue HEP, self-care measures. 3. Follow-up In 1 weeks. AVS printed. 10/05 preauthorization visit with managed care. documented in this encounter Plan of Treatment Not on filedocumented as of this encounter Visit Diagnoses Diagnosis Chronic back pain - Primary Backache, unspecified Pain in the hip Pain in joint, pelvic region and thigh Somatic dysfunction of thoracic region Nonallopathic lesion of thoracic region, not elsewhere classified documented in this encounter Care Teams Electrical Contacts Adjuster Relationship Specialty Start Date End Date Shiraz Simeon PA-C PCP - General 11/02/11 03/01/16 [address] [place] [address] documented as of this encounter
--- OUTSIDE RECORDS SUMMARY | 2022-05-31 14:44 | XMS_ITS | Encounter Summary ---
:1945 Author Organization [facility] Address [address] [place] [address] Care Team Providers Name Role Phone Shiraz Simeon PA-C Primary Care Provider Reason for Visit Reason Comments Annual Exam Encounter Details Date Type Department Care Team Description 12/24/2013 Office Visit [facility]va Cruzin e Shiraz Simeon, Annual physical exam (Primar y Dx); [address] PA-C Generalized anxiety disorder; [place] [address] [address] Chronic back pain; [phone] [place] [address] NSAID-induced gastric ulcer; [phone] Iron deficiency anemia; (Work) Pain in the hip; [phone] Tobacco use; (Fax) Breast cancer s creening; Screening susana sterol level; Screening for d iabetes mellitus; Family history of abdominal aortic aneurysm Social History Tobacco Use Types Packs/Day Years Used Date Smoking Tobacco: Never Assessed Sex Assigned at Date Recorded Not on file documented as of this encounter Last Filed Vital Signs Vital Sign Reading Time Taken Comments Blood Pressure 116/74 12/24/2013 8:33 AM CDT Pulse - - Temperature - - Respiratory Rate - - Oxygen Saturation - - Inhaled Oxygen Concentration - - Weight 55.3 kg (122 lb) 12/24/2013 8:33 AM CDT Height 159.4 cm (5' 2.75) 12/24/2013 8:33 AM CDT Body Mass Index 21.78 12/24/2013 8:33 AM CDT documented in this encounter Progress Notes Shiraz Simeon PA-C - 12/24/2013 9:30 AM CDT Preventive Exam HISTORY OF PRESENT ILLNESS: 68 y/o patient presents for a routine preventive physical exam. Right hip catch/hitch/pain Patient Active Problem List Diagnosis ??? Generalized anxiety disorder ??? Restless legs syndrome (RLS) ??? Chronic back pain ??? Iron deficiency anemia ??? NSAID-induced gastric ulcer SUBJECTIVE: The patient voices the following concerns: Continues to have chronic low back pain, takes tramadol for it as needed. She is also now having some right hip pain and gets a hitch in it when she has been walking for awhile. Would like to see a chiropractor. Current contraception: s/p YUNG-BSO Medication refills requested: Requested Prescriptions Pending Prescriptions Disp Refills ??? gabapentin (NEURONTIN) 100 mg capsule 540 capsule 4 Sig: Take 2-3 capsules by mouth 2 TIMES DAILY AC PRN for Other. ??? omeprazole (PRILOSEC) 20 mg capsule 60 capsule 12 Sig: Take 1 capsule by mouth 2 times daily (before meals). ??? sertraline (ZOLOFT) 50 mg tablet 30 tablet 12 Sig: Take 1 tablet by mouth daily (every 24 hours). Take 1/2 tab daily x 6 days, then 1 tab daily thereafter. ??? traMADol (ULTRAM) 50 mg tablet 120 tablet 12 Sig: Take 1 tablet by mouth every 6 hours as needed for Pain. . No problem-specific assessment & plan notes found for this encounter. Past Medical/Surgical History/Family History: Reviewed and updated today under History tab in Electronic Medical Record. has a current medication list which includes the following prescription(s): gabapentin, omeprazole, sertraline, and tramadol. is allergic to ferrous sulfate. Senior Net Application Developer History: : LMP: No LMP recorded. Patient is postmenopausal. Sexual History: reports that she currently engages in sexual activity and has had male partners. Shereports using the following method of control/protection: Surgical. She has had abnormal pap smear. Requested YUNG-BSO due to it. Pathology was benign. STD History: She has not been diagnosed with STDs. Social History: History Social History ??? Marital Status: Spouse Name: Joselo Corbin Number of Children: 2 ??? 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 Smoking status: Current Some Day Smoker -- 0.50 packs/day for 30 years Types: Cigarettes ??? Smokeless tobacco: Never Used Comment: Smoking History Packs/day: ??? Alcohol Use: No ??? Drug Use: No ??? Sexually Active: Yes -- Male partner(s) Control/ Protection: Surgical Comment: YUNG-BSO Other Topics Concern ??? None Social History Narrative Preventive Health Assessment: She does exercise regularly. She does perform monthly self breast exam. Calcium intake is adequate. Pap smear: N/A Mammogram: due Colonoscopy: UTD Cholesterol fractionation: due Bone density scan: UTD Immunization History Administered Date(s) Administered ??? DT 01/25/1989 ??? Influenza TIV 0.5ml (36+ mos) 04/04/2012 ??? Influenza Virus Trivalent/Conversion 04/16/1997 ??? PPV23 10/30/2012 ??? Tdap (Boostrix) 10/30/2012 OBJECTIVE: BP 116/74 Ht 5' 2.75 (1.594 m) Wt 122 lb (55.339 kg) BMI 21.78 kg/m2 General appearance: alert, cooperative, no distress, appears stated age, Eyes: conjunctivae/corneas clear. PERRL, EOM's intact. Fundi benign, Ears: normal TM's and external ear canals AU, Throat: lips,mucosa, and tongue normal; teeth and gums normal, Neck: supple, symmetrical, trachea midline, no adenopathy, thyroid: not enlarged, symmetric, no tenderness/mass/nodules and no carotid bruit, Lungs: clear to auscultation bilaterally, Breasts: normal appearance, no masses or tenderness, Heart: regular rate and rhythm, S1, S2 normal, no murmur, click, rub or gallop, Abdomen: soft, non-tender; bowel sounds normal; no masses, no organomegaly, Extremities: extremities normal, atraumatic, no cyanosis or edema, Pulses: 2+ and symmetric, Skin: Skin color, texture, turgor normal. No rashes or lesions and Lymph nodes: Cervical, supraclavicular, and axillary nodes normal. ASSESSMENT/PLAN: Shruti was seen today for annual exam. Diagnoses and associated orders for this visit: Annual physical exam Generalized anxiety disorder - Discontinue: sertraline (ZOLOFT) 50 mg tablet; Take 1 tablet by mouth daily (every 24 hours). Take1/2 tab daily x 6 days, then 1 tab daily thereafter. - sertraline (ZOLOFT) 100 mg tablet; Take 1 tablet by mouth daily (every 24 hours). Indications: Anxiety Chronic back pain - gabapentin (NEURONTIN) 300 mg capsule; Take 1 capsule by mouth 2 times daily. - traMADol (ULTRAM) 50 mg tablet; Take 1 tablet by mouth every 6 hours as needed for Pain. - CHIROPRACTIC CONSULT ADULT (AMB); Future NSAID-induced gastric ulcer - omeprazole (PRILOSEC) 20 mg capsule; Take 1 capsule by mouth 2 times daily (before meals). Iron deficiency anemia - Hemoglobin; Future - Ferritin; Future Pain in the hip - CHIROPRACTIC CONSULT ADULT (AMB); Future Tobacco use - US Aorta, AAA (Standard); Future Breast cancer screening - MM Mammogram Screening Bilateral W Cad; Future Screening cholesterol level - Cholesterol Fraction-LDLD If Trig High; Future Screening for diabetes mellitus - Glucose; Future Family history of abdominal aortic aneurysm - US Aorta, AAA (Standard); Future I will let her know results as soon as available. Patient Active Problem List Diagnosis ??? Generalized anxiety disorder ??? Restless legs syndrome (RLS) ??? Chronic back pain ??? Iron deficiency anemia ??? NSAID-induced gastric ulcer Prevention or Hormone Therapy: s/p YUNG-BSO Discharged ambulatory and in stable condition. documented in this encounter Plan of Treatment Not on filedocumented as of this encounter Visit Diagnoses Diagnosis Annual physical exam - Primary Routine general medical examination at a health care facility Generalized anxiety disorder (HRC) Generalized anxiety disorder Chronic back pain Backache, unspecified NSAID-induced gastric ulcer Gastric ulcer, unspecified as acute or c hronic, without mention of hemorrhage, perforation, or obstruction Iron deficiency anemia Iron deficiency anemia, unspecified Pain in the hip Pain in joint, pelvic region and thigh Tobacco use (HRC) Tobacco use disorder Screening cholesterol level Screening for lipoid disorders Screening for diabetes mellitus Family history of abdominal aortic aneur ysm Family history of other cardiovascular d iseases documented in this encounter Care Teams Concrete Conveyor Operator Relationship Specialty Start Date End Date Shiraz Simeon PA-C PCP - General 11/02/11 03/01/16 [address] [place] [address] documented as of this encounter
--- OUTSIDE RECORDS SUMMARY | 2022-05-31 14:44 | XMS_ITS | Encounter Summary ---
:1945 Author Organization [facility] Address [address], [place] [address] Care Team Providers Name Role Phone Shiraz Simeon PA-C Primary Care Provider Reason for Visit Reason Comments Back Pain Encounter Details Date Type Department Care Team Description 01/20/2014 Office Visit Pravin Hurt b ack pain (Primary Dx); Chiropractic [facility] Bautista Pain in the hip; [address] [address] [place] [address] [place] [phone] (Wo rk) Social History Tobacco Use Types Packs/Day Years Used Date Smoking Tobacco: Never Assessed Sex Assigned at Date Recorded Not on file documented as of this encounter Progress Notes Pravin Reyes DC - 02/08/2014 5:21 PM CDT PHYSICAL MEDICINE AND REHABILITATION CHIROPRACTIC FOLLOW-UP VISIT Initial consultation date: 07 January 2014 Nature condition: Chronic SUBJECTIVE: Follows up from complaints of chronic lumbosacral back Pain today rated 2/10 on visual analog scale.Overall activity tolerances rated as fair-good. Symptoms continue. Denies changes. Continues her recommended home exercises. OBJECTIVE: motion-palpation restrictions: Extension T12, L1, lumbopelvic flexion restriction. ASSESSMENT: Diagnosis (ICD9) ICD-9-CM 1. Chronic back pain 724.5 338.29 2. Pain in the hip 719.45 3. Somatic dysfunction of thoracic region 739.2 PLAN: 1. CPT 45540 Chiropractic manipulative therapy: T12, L1, manually controlled lumbopelvic traction with WADSWORTH flexion-distraction technique. See objective. 2. Procedures tolerated well. Continue HEP, self-care measures. 3. Follow-up In 1 weeks. AVS printed. 09/04 preauthorization visit with managed care. documented in this encounter Plan of Treatment Not on filedocumented as of this encounter Visit Diagnoses Diagnosis Chronic back pain - Primary Backache, unspecified Pain in the hip Pain in joint, pelvic region and thigh Somatic dysfunction of thoracic region Nonallopathic lesion of thoracic region, not elsewhere classified documented in this encounter Care Teams Piano Accompanist Relationship Specialty Start Date End Date Shiraz Simeon PA-C PCP - General 11/02/11 03/01/16 [address] [place] [address] documented as of this encounter
--- OUTSIDE RECORDS SUMMARY | 2022-05-31 14:44 | XMS_ITS | Encounter Summary ---
:1945 Author Organization [facility] Address [address] [place] [address] Care Team Providers Name Role Phone Shiraz Simeon PA-C Primary Care Provider Reason for Visit Reason Comments Refill Encounter Details Date Type Department Care Team Description 08/25/2014 Refill [facility] Shiraz Sargent PA-C Refill [address] [place] [address] [place] [address] [phone] (Wo rk) Social History Tobacco Use Types Packs/Day Years Used Date Smoking Tobacco: Never Assessed Sex Assigned at Date Recorded Not on file documented as of this encounter Nursing Notes Delaney Miller RN - 08/25/2014 8:53 AM CST DOES NOT MEET REQUIREMENTS FOR REFILL Reason: needing signed order from PCP. See below-patient reports using 900 mg daily. Current rx is for 600 mg daily. Last visit with PCP: 12/24/13 Requested Prescriptions Pending Prescriptions Disp Refills ??? gabapentin (NEURONTIN) 300 mg capsule 270 capsule 0 Sig: Take 1 capsule by mouth 3 times daily. E CLINICIAN Delaney Miller RN - 08/25/2014 8:47 AM NURSE CLINICIAN From: Ronda Corbin To: Shiraz Simeon PA-C Sent: 08/25/2014 7:05 AM NURSE CLINICIAN Subject: Medication Renewal Request Original authorizing provider: KENISHA Cisneros would like a refill of the following medications: gabapentin (NEURONTIN) 300 mg capsule [Shiraz Simeon PA-C] Preferred pharmacy: [facility] [place] Comment: I have had to use this Gabapentin more to stop the restless leg. Mostly right side. Have had to take 900 mg. a day. Need to get refill early. Can you do that?Ronda [phone] documented in this encounter Miscellaneous Notes Refill (Converted) - Berkley Loyd Provider - 08/25/2014 8:58 AM NURSE CLINICIAN RE: Medication Renewal Request From User: SHIRAZ SIMEON, I faxed your gabapentin prescription as requested. Shiraz Estes ----- Message ----- From: RONDA CORBIN Sent: 08/25/2014 8:50 AM NURSE CLINICIAN To: Shiraz Simeon PA-C Subject: RE: Medication Renewal Request Yes, using 900 every day. It helps a lot. Ronda ----- Message ----- From: Office of Shiraz Simeon PA-C Sent: 08/25/2014 8:48 AM NURSE CLINICIAN To: Ronda Corbin Subject: RE: Medication Renewal Request Ronda, Just to clarify, are you still using 900 mg daily, and does this seem to be working better? Sonali Espinoza Nurse Line ----- Message ----- From: RONDA CORBIN Sent: 08/25/2014 7:05 AM NURSE CLINICIAN To: Shiraz Simeon PA-C Subject: Medication Renewal Request Original authorizing provider: KENISHA Cisneros would like a refill of the following medications: gabapentin (NEURONTIN) 300 mg capsule [Shiraz Simeon PA-C] Preferred pharmacy: [facility] [place] Comment: I have had to use this Gabapentin more to stop the restless leg. Mostly right side. Have had to take 900 mg. a day. Need to get refill early. Can you do that? Ronda Corbin [phone] E CLINICIAN documented in this encounter Plan of Treatment Not on filedocumented as of this encounter Visit Diagnoses Diagnosis Chronic back pain Backache, unspecified documented in this encounter Care Teams Traffic Maintenance Officer Relationship Specialty Start Date End Date Shiraz Simeon PA-C PCP - General 11/02/11 03/01/16 [address] [place] [address] documented as of this encounter
--- OUTSIDE RECORDS SUMMARY | 2022-05-31 14:44 | XMS_ITS | Encounter Summary ---
:1945 [facility] Address [address] [place] [address] Care Team Providers Name Role Phone Shiraz Simeon PA-C Primary Care Provider Reason for Visit Reason Comments Infusion Encounter Details Date Type Department Care Team Description 01/10/2013 Hospital Encounter [facility] ane mauricio (Primary Dx) Oncology Treatment R ooms [address] [place], [place] [address] Social History Tobacco Use Types Packs/Day Years Used Date Smoking Tobacco: Never Assessed Sex Assigned at Date Recorded Not on file documented as of this encounter Medications at Time of Discharge [...] this encounter Miscellaneous Notes Medication History - Integration, MD Cameron - 01/10/2013 11:59 PM CDT Infusion Synopsis from 02-23-2012 to 01-10-2013 SUPPORTIVE CARE MEDS IRON SUCROSE (VENOFER) IV Date Dose User 01-10-2013 01:18 PM 200 mg Betzaida Pope RN 01-08-2013 01:40 PM 200 mg Kate Mcbride RN 01-07-2013 01:23 PM 200 mg Betzaida Pope RN 01-01-2013 03:20 PM 200 mg Mauricio Mendes RN 12-30-2012 03:06 PM 200 mg Mame Gonzalez RN 06-19-2012 10:07 AM 200 mg Radha Salmeron RN 06-18-2012 09:45 AM 200 mg Mame Gonzalez RN 06-17-2012 10:01 AM 200 mg Mauricio Mendes RN 03-08-2012 01:23 PM 200 mg Tasha Hernandez RN 03-06-2012 01:44 PM 200 mg Ara Neal, RN 03-01-2012 12:59 PM 200 mg Michelle Lira, EDWARD 02-28-2012 01:36 PM 200 mg Fauzia Chung, EDWARD 02-26-2012 01:23 PM 200 mg Radha Acosta, EDWARD 02-23-2012 01:38 PM 200 mg Betzaida Pope RN Medication History - IntegrationCameron MD - 01/10/2013 11:59 PM CDT INPATIENT MEDS Encounter Date: 01/10/13 iron sucrose (VENOFER) 200 mg in 0.9% sodium chloride 100 mL infusion Start Date:01/10/13, End Date:01/10/13, Frequency:ONCE Taken Dose Action User Route Site Recorded Comment Reason 01/10/13 1431 200 mg Infused Betzaida Pope RN Intravenous - 01/10/13 1431 - - 01/10/13 1318 200 mg Started Betzaida Pope RN Intravenous - 01/10/13 1318 - - 0.9% sodium chloride flush 500 mL Start Date:01/10/13, End Date:01/10/13, Frequency:ONCE Taken Dose Action User Route Site Recorded Comment Reason 01/10/13 1431 500 mL Infused Betzaida Pope RN Intravenous - 01/10/13 1431 - - 01/10/13 1318 500 mL Started Betzaida Pope RN Intravenous - 01/10/13 1319 - - 0.9% sodium chloride latex free syringe 20 mL Start Date:01/10/13, End Date:01/10/13, Frequency:PRN *No Administrations Recorded prochlorperazine (COMPAZINE) tablet 10 mg Start Date:01/10/13, End Date:01/10/13, Frequency:ONCE Taken Dose Action User Route Site Recorded Comment Reason 01/10/13 1318 10 mg Given Betzaida Pope RN Oral - 01/10/13 1318 - - documented in this encounter Plan of Treatment Not on filedocumented as of this encounter Visit Diagnoses Diagnosis Iron deficiency anemia - Primary Iron deficiency anemia, unspecified documented in this encounter Care Teams Upsetter Helper Relationship Specialty Start Date End Date Shiraz Simeon PA-C PCP - General 11/02/11 03/01/16 [address] [place], [place] [address] documented as of this encounter
--- OUTSIDE RECORDS SUMMARY | 2022-05-31 14:44 | XMS_ITS | Encounter Summary ---
:1945 Author Organization [employer] Address [address], [place] [address] Care Team Providers Name Role Phone Shiraz Simeon PA-C Primary Care Provider Reason for Visit Reason Comments Back Pain Encounter Details Date Type Department Care Team Description 01/15/2014 Office Visit Pravin Hurt b ack pain (Primary Dx); Chiropractic [facility] Bautista Pain in the hip; [address] [address] [address] [place] [address] [place] [phone] (Wo rk) Social History Tobacco Use Types Packs/Day Years Used Date Smoking Tobacco: Never Assessed Sex Assigned at Date Recorded Not on file documented as of this encounter Progress Notes Pravin Reyes DC - 02/08/2014 5:20 PM CDT PHYSICAL MEDICINE AND REHABILITATION CHIROPRACTIC [...] of thoracic region 739.2 PLAN: 1. CPT 65298 Chiropractic manipulative therapy: T12, L1, manually controlled lumbopelvic traction with WADSWORTH flexion-distraction technique. See objective. Briefly reviewed spine sparing lifting techniques. 2. Procedures tolerated well. Continue HEP, self-care measures. 3. Follow-up In 1 weeks. AVS printed. 08/07 preauthorization visit with managed care. documented in this encounter Plan of Treatment Not on filedocumented as of this encounter Visit Diagnoses Diagnosis Chronic back pain - Primary Backache, unspecified Pain in the hip Pain in joint, pelvic region and thigh Somatic dysfunction of thoracic region Nonallopathic lesion of thoracic region, not elsewhere classified documented in this encounter Care Teams Laborer Landscape Relationship Specialty Start Date End Date Shiraz Simeon PA-C PCP - General 11/02/11 03/01/16 [address] [place] [address] documented as of this encounter
--- OUTSIDE RECORDS SUMMARY | 2022-05-31 14:44 | XMS_ITS | Encounter Summary ---
:1945 Author Organization [facility] Address [address] [place] [address] Care Team Providers Name Role Phone Shiraz Simeon PA-C Primary Care Provider Reason for Visit Reason Comments Refill Encounter Details Date Type Department Care Team Description 09/10/2014 Refill MYCHART DEPARTMENT Mychart, Generic Provider Refill [address] [place] [address] [place] [address] Social History Tobacco Use Types Packs/Day Years Used Date Smoking Tobacco: Never Assessed Sex Assigned at Date Recorded Not on file documented as of this encounter Miscellaneous Notes Refill (Converted) - Mychart, Generic Provider - 09/10/2014 3:26 PM CDT Medication Renewal Request From User: I didn't think the other credit card would go through. It was closed. but ok if it was! Ronda ----- Message ----- From: Office of Shiraz Simeon PA-C Sent: 09/10/2014 3:23 PM CDT To: Ronda Corbin Subject: RE: Medication Renewal Request Tej Bahena, I checked with [facility]. They said they had already received a request to refill your Zoloft, and it had already been charged to your old credit card number and was mailed. In the future, please call the pharmacy about refill requests. They are not linked to MyCharts. If there are any additional questions, please call the pharmacy at [phone]. Thank you. EDWARD Camejo ----- Message ----- From: RONDA CORBIN Sent: 09/10/2014 2:47 PM CDT To: Shiraz Simeon PA-C Subject: Medication Renewal Request Original authorizing provider: KENISHA Cisneros would like a refill of the following medications: sertraline (ZOLOFT) 100 mg tablet [Shiraz Simeon PA-C] Preferred pharmacy: [facility] [address] [email or web address] Comment: Need to give you another credit card, Use [employer] [facility]- [id number] Ronda Corbin expires on back please confirm CISE INSTRUCTOR documented in this encounter Plan of Treatment Not on filedocumented as of this encounter Visit Diagnoses Not on filedocumented in this encounter Care Teams Rn School Relationship Specialty Start Date End Date Shiraz Simeon PA-C PCP - General 11/02/11 03/01/[address] [place] [id number] documented as of this encounter
--- OUTSIDE RECORDS SUMMARY | 2022-05-31 14:44 | XMS_ITS | Encounter Summary ---
:1945 Author Organization [facility] Address [address] [place] [address] Care Team Providers Name Role Phone Shiraz Simeon PA-C Primary Care Provider Reason for Visit Reason Comments Refill Encounter Details Date Type Department Care Team Description 08/25/2014 Refill MYCHART DEPARTMENT Mychart, Generic Provider Refill [address] [place] [address] [place] [address] Social History Tobacco Use Types Packs/Day Years Used Date Smoking Tobacco: Never Assessed Sex Assigned at Date Recorded Not on file documented as of this encounter Miscellaneous Notes Refill (Converted) - Mychart, Generic Provider - 08/25/2014 9:00 AM DIMENSION QUARRY SUPERVISOR Medication Renewal Request From User: thanks ----- Message ----- From: Shiraz Simeon PA-C Sent: 08/25/2014 8:58 AM DIMENSION QUARRY SUPERVISOR To: Ronda Corbin Subject: RE: Medication Renewal Request Domi Bahena faxed your gabapentin prescription as requested. Shiraz Estes ----- Message ----- From: RONDA CORBIN Sent: 08/25/2014 8:50 AM DIMENSION QUARRY SUPERVISOR To: Shiraz Simeon PA-C Subject: RE: Medication Renewal Request Yes, using 900 every day. It helps a lot. Ronda ----- Message ----- From: Office of Shiraz Simeon PA-C Sent: 08/25/2014 8:48 AM DIMENSION QUARRY SUPERVISOR To: Ronda Corbin Subject: RE: Medication Renewal Request Ronda, Just to clarify, are you still using 900 mg daily, and does this seem to be working better? Latasha Espinoza Nurse Line ----- Message ----- From: RONDA CORBIN Sent: 08/25/2014 7:05 AM DIMENSION QUARRY SUPERVISOR To: Shiraz Simeon PA-C Subject: Medication Renewal Request Original authorizing provider: KENISHA Cisneros would like a refill of the following medications: gabapentin (NEURONTIN) 300 mg capsule [Shiraz Simeon PA-C] Preferred pharmacy: [facility] - [address] Comment: I have had to use this Gabapentin more to stop the restless leg. Mostly right side. Have had to take 900 mg. a day. Need to get refill early. Can you do that? Ronda Corbin [phone] NSION QUARRY SUPERVISOR documented in this encounter Plan of Treatment Not on filedocumented as of this encounter Visit Diagnoses Not on filedocumented in this encounter Care Teams Hydrogenation Operator Relationship Specialty Start Date End Date Shiraz Simeon PA-C PCP - General 11/02/11 03/01/[address] [id number] documented as of this encounter
--- OUTSIDE RECORDS SUMMARY | 2022-05-31 14:44 | XMS_ITS | Encounter Summary ---
:1945 Author Organization [facility] Address [address] [place] [address] Care Team Providers Name Role Phone Shiraz Simeon PA-C Primary Care Provider Reason for Visit Reason Comments Infusion Encounter Details Date Type Department Care Team Description 01/01/2013 Hospital Encounter [facility]e mauricio (Primary Dx) Oncology Treatment R ooms [address] [place], [place] [id number] Social History Tobacco Use Types Packs/Day Years Used Date Smoking Tobacco: Never Assessed Sex Assigned at Date Recorded Not on file documented as of this encounter Last Filed Vital Signs Vital Sign Reading Time Taken Comments Blood Pressure 89/44 01/01/2013 3:11 PM CDT Pulse 79 01/01/2013 3:11 PM CDT Temperature 36.9 ??C (98.4 ??F) 01/01/2013 3:11 PM CDT Respiratory Rate - - Oxygen Saturation - [...] Medication History - Cameron Reddy MD - 01/01/2013 11:59 PM CDT INPATIENT MEDS Encounter Date: 01/01/13 0.9% sodium chloride latex free syringe 20 mL Start Date:01/01/13, End Date:01/01/13, Frequency:PRN Taken Dose Action User Route Site Recorded Comment Reason 01/01/13 1517 10 mL Given Mauricio Mendes RN Intravenous - 01/01/13 1523 - - prochlorperazine (COMPAZINE) tablet 10 mg Start Date:01/01/13, End Date:01/01/13, Frequency:ONCE Taken Dose Action User Route Site Recorded Comment Reason 01/01/13 1518 10 mg Given Mauricio Mendes RN Oral - 01/01/13 1520 - - iron sucrose (VENOFER) 200 mg in 0.9% sodium chloride 100 mL infusion Start Date:01/01/13, End Date:01/01/13, Frequency:ONCE Taken Dose Action User Route Site Recorded Comment Reason 01/01/13 1634 200 mg Infused Josette Gasca RN Intravenous - 01/01/13 1634 - - 01/01/13 1520 200 mg Started Mauricio Mendes RN Intravenous - 01/01/13 1521 - - 0.9% sodium chloride flush 500 mL Start Date:01/01/13, End Date:01/01/13, Frequency:ONCE Taken Dose Action User Route Site Recorded Comment Reason 01/01/13 1634 500 mL Infused Josette Gasca RN Intravenous - 01/01/13 1634 - - 01/01/13 1517 250 mL Started Josette Gasca RN Intravenous - 01/01/13 1634 - - documented in this encounter Plan of Treatment Not on filedocumented as of this encounter Visit Diagnoses Diagnosis Iron deficiency anemia - Primary Iron deficiency anemia, unspecified documented in this encounter Care Teams Vegetable Ii Farmworker Relationship Specialty Start Date End Date Shiraz Simeon PA-C PCP - General 11/02/11 03/01/16 [address] [place] [address] documented as of this encounter
--- OUTSIDE RECORDS SUMMARY | 2022-05-31 14:44 | XMS_ITS | Encounter Summary ---
:1945 Author Organization [employer] Address [address] [place] [address] Care Team Providers Name Role Phone Shiraz Simeon PA-C Primary Care Provider Reason for Referral Specialty Diagnoses / Procedures Referred By Contact Refer red To Contact Shiraz Simeon PA-C [address] [place] [address] Referral ID Status Reason Start Date Expiration Date Visits Requ ested Visits Authorized Reason for Visit Reason Comments Back Pain Encounter Details Date Type Department Care Team Description 01/07/2014 Initial Consult Pravin Hurt Somati c dysfunction of thoracic region (Primary Dx); Chiropractic M, [place] Chronic back pain; [address] [address] [place] Pain in the hip [place] [address] [place] [phone] Social History Tobacco Use Types Packs/Day Years Used Date Smoking Tobacco: Never Assessed Sex Assigned at Date Recorded Not on file documented as of this encounter Last Filed Vital Signs Vital Sign Reading Time Taken Comments Blood Pressure 115/71 01/07/2014 10:33 AM CDT Pulse 76 01/07/2014 10:33 AM CDT Temperature - - Respiratory Rate 12 01/07/2014 10:33 AM CDT Oxygen Saturation - - Inhaled Oxygen Concentration - - Weight - - Height - - Body Mass Index - - documented in this encounter Progress Notes Pravin Reyes DC - 02/08/2014 5:39 PM CDT PHYSICAL MEDICINE AND REHABILITATION CHIROPRACTIC CONSULTATION VISIT Nature of condition: Chronic SUBJECTIVE: Shruti Corbin is a 68 y.o. female Chief Complaint Patient presents with ??? Back Pain bilateral/ several years Referring provider: Shiraz Simeon PA-C [address] [place] [address] History of Present Illness: insidious onset lumbosacral back pain over many years. Denies associatedtrauma nor preceding incident. Denies surgery to the spine, hips and knees. Remarkable surgical history for hysterectomy. Denies past history of MVA nor chemical/alcohol dependency treatment. . Smoking x20 years a pack daily however decreased to a few cigarettes daily. Denies alcohol. 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 Location: lumbosacral back, right gluteal. Pain Severity (VAS Pain Scale): 09/08 Timing: intermittent Quality: aching, dull Trend: stable Aggravating Factors: Extended standing, walking. Palliating Factors: limiting her walking Associated Symptoms: Denies upper or lower extremity paresthesia, weakness, bowel/bladder incontinence. Denies saddle anesthesia. Negative valsalva. Outcomes Assessment: Oswestry back index score # 26, interpreted as moderate disability. Review Of Systems: Aside from chief complaint, complete review of systems negative. Pertinent Medical Tests: unremarkable Treatments: activity restriction, medication. PAST MEDICAL HISTORY: Past Medical History Diagnosis Date ??? RLS (restless legs syndrome) ??? PUD (peptic ulcer disease) ??? Generalized anxiety disorder ??? Chronic back pain 11/16/2011 ??? Iron deficiency anemia 11/16/2011 ??? NSAID-induced gastric ulcer 11/16/2011 ??? Nephrolithiasis right sided SURGICAL HISTORY: Past Surgical History Procedure Laterality Date ??? Brandon and bso abnormal pap, patient requested MEDICATIONS: Current outpatient prescriptions:gabapentin (NEURONTIN) 300 mg capsule, Take 1 capsule by mouth 2 times daily., Disp: 180 capsule, Rfl: 4, ; omeprazole (PRILOSEC) 20 mg capsule, Take 1 capsule by mouth2 times daily (before meals)., Disp: 60 capsule, Rfl: 12, ; sertraline (ZOLOFT) 100 mg tablet, Take 1 tablet by mouth daily (every 24 hours). Indications: Anxiety, Disp: 30 tablet, Rfl: 12, traMADol (ULTRAM) 50 mg tablet, Take 1 tablet by mouth every 6 hours as needed for Pain., Disp: 120 tablet, Rfl: 12, ADR/ ALLERGIES: Allergies Allergen Reactions ??? Ferrous Sulfate Nausea Only Stomach upset SOCIAL HISTORY: History Social History ??? Marital Status: Spouse [...] Activity: Partners: Male Control/ Protection: Surgical Comment: BRANDON-BSO Other Topics Concern ??? Exercise Yes walking Social History Narrative Present employer: FAMILY HISTORY: Family History Problem Relation Age of Onset ??? AAA Sister non-smoker, normotensive ??? Renal Failure Sister ??? Other Mother ??? Osteoarthritis Mother ??? Cataracts Mother ??? High Cholesterol Brother ??? Hypertension Brother ??? Retinal Detachment Brother ??? Diabetes Neg Hx ??? Glaucoma Neg Hx ??? Macular Degen Neg Hx ??? Strabismus Neg Hx ??? Amblyopia Neg Hx OBJECTIVE: VITALS: BP 115/71 Pulse 76 Resp 12 Constitutional: katherine Corbin is a 68 y.o. female . well-nourished, appears well, dressed and groomed appropriately. healthy, alert, no distress, cooperative Body Type: mesomorphic Psychiatric: alert oriented to person, place and time/date Cardiovascular: Negative for upper or lower externa varicosities, edema. Skin: Warm, moist Neurological: Patella, Achilles DTR's 2+, symmetric bilaterally. L2-S1 myotmes 5/5 with corresponding dermatomes intact to light touch and symmetric bilaterally. Musculoskeletal: normal gait and station Observations reveal anterior- posterior spinal curvatures WNL, negative for gross signs of scoliosis however mild right lumbar convexity noted. no further postural asymmetries. Negative for antalgia. Motion Palpation: Restrictions extension T12, L1, right hip long axis glide, lumbopelvic flexion. Spine Palpation: negative for palpable crepitus, midline edema, step defect thoracic, lumbosacral regions. Negative for midline spinal tenderness. Tenderness left SI, nontender right. Soft Tissue Evaluation: Hypertonicity, tenderness, with trigger points right piriformis. Lumbosacral Active Range of Motion: extension unrestricted, flexion, left lateral bending mildly limited, right lateral bending moderately limited. Lumbosacral pain during flexion/extension. Orthopedic: Hester's test negative bilaterally however provoking lumbosacral pain. Functional tests: Posterior pelvic pain provocation test unremarkable bilaterally. ASSESSMENT/Diagnosis: Diagnosis (ICD9) ICD-9-CM 1. Somatic dysfunction of thoracic region 739.2 2. Chronic back pain 724.5 338.29 3. Pain in the hip 719.45 PLAN: 1. Consent obtained for examination, treatment. Discussed possible adverse effects including temporary post examination/treatment symptom exacerbation, muscle soreness, inflammation. Reviewed pathophysiology of diagnosed condition, utiliziing interactive 3D CD-ROM, counseled patient on conservative treatment options, outcomes, side effects, importance of compliance. 2. CPT 16074 Chiropractic manipulative therapy: T12, L1 P-A mobilizations performed seated, lumbopelvic manual traction with flexion-distraction technique. Post manipulative supportive HEP handout provided including exercises for: [ stretches for gluteals, piriformis, Stef lumbar extension ] 3. Self-care measures instructions including apply ice 20 minutes every day to affected regions. Postural reeducation performed. 4. Procedures tolerated well, all questions answered to patients' satisfaction. Follow-up recommended within one week. 5. Conservative treatment plan [ <8 ] visits. Anticipate symptoms to significantly improve, or fully resolve and discharged to p.r.n.. Reevaluation, further diagnostic testing, however deferred to primary provider due to chiropractic insurance restrictions. Also considerations for appropriate referr al if unresponsive or worsening. Patient agrees. AVS printed. 07/07 preauthorization visit with managed-care documented in this encounter Plan of Treatment Scheduled Referrals Name Type Priority Associated Diagnoses Order S chedule Glove Machine Operator Referral Routine Chronic back p ain Ordered: 01/07/2014, Pain in the hip Expires: 03/2014 documented as of this encounter Visit Diagnoses Diagnosis Somatic dysfunction of thoracic region - Primary Nonallopathic lesion of thoracic region, not elsewhere classified Chronic back pain Backache, unspecified Pain in the hip Pain in joint, pelvic region and thigh documented in this encounter Care Teams Manufacturing Cost Estimator Relationship Specialty Start Date End Date Shiraz Simeon PA-C PCP - General 11/02/11 03/01/16 [address] [place] [address] documented as of this encounter
--- OUTSIDE RECORDS SUMMARY | 2022-05-31 14:44 | XMS_ITS | Encounter Summary ---
:1945 Author Organization [employer] Address [address] [place] [address] Care Team Providers Name Role Phone Shiraz Simeon PA-C Primary Care Provider Reason for Visit Reason Comments Refill Encounter Details Date Type Department Care Team Description 09/10/2014 Refill Shiraz Cabezas PA-C Refill 1884 Mytonomy 1884 [employer] [place] [address] [address] [address] [phone] (Wo rk) Social History Tobacco Use Types Packs/Day Years Used Date Smoking Tobacco: Never Assessed Sex Assigned at Date Recorded Not on file documented as of this encounter Nursing Notes Rosalva Fair RN - 09/10/2014 3:15 PM CDT From: Ronda Corbin To: Shiraz Simeon PA-C Sent: 09/10/2014 2:47 PM CDT Subject: Medication Renewal Request Original authorizing provider: Shiraz Simeon PA-C Ronda Corbin would like a refill of the following medications: sertraline (ZOLOFT) 100 mg tablet [Shiraz Simeon PA-C] Preferred pharmacy: [facility] [address] Comment: Need to give you another credit card, Use [employer] [facility]- [id number] M Hillaexpires on backplease confirm documented in this encounter Miscellaneous Notes Refill (Converted) - Mychart, Generic Provider - 09/10/2014 3:23 PM CDT RE: Medication Renewal Request From User: ROSALVA FAIR, I checked with [facility]. They said they had already received a request to refill your Zoloft, and it had already been charged to your old credit card number and was mailed. In the future, please call the pharmacy about refill requests. They are not linked to MyCharts. If there are any additional questions, please call the pharmacy at [phone]. Thank you. EDWARD Camejo ----- Message ----- From: RONDA CORBIN Sent: 09/10/2014 2:47 PM CDT To: Shiraz Simeon PA-C Subject: Medication Renewal Request Original authorizing provider: KENISHA Cisneros would like a refill of the following medications: sertraline (ZOLOFT) 100 mg tablet [Shiraz Simeon PA-C] Preferred pharmacy: [facility] [place] [facility] Comment: Need to give you another credit card, Use [employer] [facility]- [phone] Ronda Corbin expires on back please confirm UTER CUSTOMER SUPPORT SPECIALIST documented in this encounter Plan of Treatment Not on filedocumented as of this encounter Visit Diagnoses Diagnosis Generalized anxiety disorder (HRC) Generalized anxiety disorder documented in this encounter Care Teams Noc Technician Relationship Specialty Start Date End Date Shiraz Siemon PA-C PCP - General 11/02/11 03/01/[address] [place] [address] [address] documented as of this encounter
--- OUTSIDE RECORDS SUMMARY | 2022-05-31 14:44 | XMS_ITS | Encounter Summary ---
:1945 Author Organization [employer] Address [address] [place] [address] Care Team Providers Name Role Phone Shiraz Simeon PA-C Primary Care Provider Reason for Visit Reason Comments Refill Encounter Details Date Type Department Care Team Description 02/16/2014 Refill [facility] Shiraz Simeon PA-C Refill [address] [place] [address] [place] [address] [phone] (Wo rk) Social History Tobacco Use Types Packs/Day Years Used Date Smoking Tobacco: Never Assessed Sex Assigned at Date Recorded Not on file documented as of this encounter Nursing Notes Alia Garcia LPN - 02/18/2014 8:57 AM CDT Rx to pharm. Shiraz Simeon PA-C - 02/17/2014 5:21 PM CDT Rx on Alia's desk Danii Pepper - 02/16/2014 11:01 AM CDT NOT ON PNRF LIST TRAMADOL HCL 50 MG TAB 120 [facility] LAST VISIT 12/24/13 LAST FILL 10/27/13 documented in this encounter Plan of Treatment Not on filedocumented as of this encounter Visit Diagnoses Diagnosis Chronic back pain Backache, unspecified documented in this encounter Care Teams Mission Assessment Specialist Relationship Specialty Start Date End Date Shiraz Simeon PA-C PCP - General 11/02/11 03/01/16 [address] [place] [address] documented as of this encounter
--- OUTSIDE RECORDS SUMMARY | 2022-05-31 14:44 | XMS_ITS | Encounter Summary ---
:1945 Author Organization Counts include 234 beds at the [facility] Address [address] [place] [address] Care Team Providers Name Role Phone Shiraz Simeon PA-C Primary Care Provider Reason for Visit Reason Comments Infusion Encounter Details Date Type Department Care Team Description 01/07/2013 Hospital Encounter [facility] ane mauricio (Primary Dx) Oncology Treatment [address] [place], [place] [address] Social History Tobacco Use Types Packs/Day Years Used Date Smoking Tobacco: Never Assessed Sex Assigned at Date Recorded Not on file documented as of this encounter Last Filed Vital Signs Vital Sign Reading Time Taken Comments Blood Pressure 93/54 01/07/2013 1:18 PM CDT Pulse 70 01/07/2013 1:18 PM CDT Temperature - - Respiratory Rate [...] Medication History - Cameron Reddy MD - 01/07/2013 11:59 PM CDT INPATIENT MEDS Encounter Date: 01/07/13 iron sucrose (VENOFER) 200 mg in 0.9% sodium chloride 100 mL infusion Start Date:01/07/13, End Date:01/07/13, Frequency:ONCE Taken Dose Action User Route Site Recorded Comment Reason 01/07/13 1441 200 mg Infused Betzaida Pope RN Intravenous - 01/07/13 1441 - - 01/07/13 1323 200 mg Started Betzaida Pope RN Intravenous - 01/07/13 1323 - - 0.9% sodium chloride flush 500 mL Start Date:01/07/13, End Date:01/07/13, Frequency:ONCE Taken Dose Action User Route Site Recorded Comment Reason 01/07/13 1440 500 mL Infused Betzaida Pope RN Intravenous - 01/07/13 1441 - - 01/07/13 1322 500 mL Started Betzaida Pope RN Intravenous - 01/07/13 1322 - - 0.9% sodium chloride latex free syringe 20 mL Start Date:01/07/13, End Date:01/07/13, Frequency:PRN *No Administrations Recorded prochlorperazine (COMPAZINE) tablet 10 mg Start Date:01/07/13, End Date:01/07/13, Frequency:ONCE Taken Dose Action User Route Site Recorded Comment Reason 01/07/13 1322 10 mg Given Betzaida Pope RN Oral - 01/07/13 1322 - - documented in this encounter Plan of Treatment Not on filedocumented as of this encounter Visit Diagnoses Diagnosis Iron deficiency anemia - Primary Iron deficiency anemia, unspecified documented in this encounter Care Teams Research And Development Chemist Relationship Specialty Start Date End Date Shiraz Simeon PA-C PCP - General 11/02/11 03/01/16 [address] [place] [address] documented as of this encounter
--- OUTSIDE RECORDS SUMMARY | 2022-05-31 14:44 | XMS_ITS | Encounter Summary ---
:1945 Author Organization [facility] Address [address] [place] [address] Care Team Providers Name Role Phone Shiraz Simeon PA-C Primary Care Provider Reason for Visit Reason Comments Eye Exam Encounter Details Date Type Department Care Team Description 05/15/2013 Office Visit Cristian Schmitt, Incipient cataract (Primary Dx); Ophthalmology OD Ptosis of eyelid, right; [address] [address] [place] [id number] SHERIF ID [phone] (Wo rk) Social History Tobacco Use Types Packs/Day Years Used Date Smoking Tobacco: Never Assessed Sex Assigned at Date Recorded Not on file documented as of this encounter Patient Instructions Patient InstructionsCristian Trinh, OD - 05/15/2013 4:57 PM CST New eyeglass prescription recommended. In general, watch for and report any changes in your vision. Routine comprehensive eye exam annually recommended, or sooner should conditions change. EP WORKER documented in this encounter Progress Notes Cristian Trinh, OD - 05/15/2013 4:57 PM CST GENERAL MEDICAL OBSERVATION: ~ Pt alert, pleasant, appears basically healthy, feels well IMPRESSION / PLAN: ~ Incipient cataract both eyes, normal for age, not having any significant measurable effect on bestcorrected visual acuity, but causing a significant change in refractive error. Watch for future changes ~ Minimal to mild right eyelid ptosis. Watch for adverse changes in visual field or associated vision complaints ~ Significant change in refractive error resulting in increased myopia and increased astigmatism in both eyes due to lenticular changes. Spectacle Rx with manifest refraction written to patient: changerecommended. Watch for future changes EP WORKER documented in this encounter Plan of Treatment Not on filedocumented as of this encounter Visit Diagnoses Diagnosis Incipient cataract - Primary Unspecified cataract Ptosis of eyelid, right Unspecified ptosis of eyelid Myopia with astigmatism and presbyopia Myopia documented in this encounter Care Teams End User Support Specialist Relationship Specialty Start Date End Date Shiraz Simeon PA-C PCP - General 11/02/11 03/01/16 [address] [place] [id number] documented as of this encounter
--- OUTSIDE RECORDS SUMMARY | 2022-05-31 14:44 | XMS_ITS | Encounter Summary ---
:1945 Author Organization [employer] Address [address] [place] [address] Care Team Providers Name Role Phone Shiraz Simeon PA-C Primary Care Provider Encounter Details Date Type Department Care Team Description 12/26/2013 Imaging [facility] Tobacco use; [id number] [employer] Family history of abdominal aortic [place] [address] Social History Tobacco Use Types Packs/Day Years Used Date Smoking Tobacco: Never Assessed Sex Assigned at Date Recorded Not on file documented as of this encounter Plan of Treatment Not on filedocumented as of this encounter Procedures Procedure Name Priority Date/Time Associated Diagnosis Comme nts US ABD AORTA Routine 12/26/2013 8:11 AM Tobacco use Results for this CDT Family history of procedure are in the abdominal aortic results sec tion. aneurysm documented in this encounter Results US Abd Aorta (12/26/2013 8:11 AM CDT) Anatomical Region Laterality Modality Abdomen Other Specimen (Source) Anatomical Location Collection Method / Collectio n Time Received Time / Laterality Volume Impressions 12/26/2013 8:20 AM CDT IMPRESSION: ?? No aneurysm seen. There is irregularity of the wall consistent with atherosclerosis. Narrative 12/26/2013 8:20 AM CDT COMPARISON: ??None. FINDINGS: ?? Proximal aorta: 2.6 x 2.6 cm (AP x trans verse) Mid aorta: 2.1 x 2.1 cm (AP x transverse ) Distal aorta: 2.1 x 2.2 cm (AP x transve rse) Right common iliac artery: 1.2 cm AP Left common iliac artery: 1.2 cm AP Procedure Note Todd Ruggiero MD - 12/18/2015Format ting of this note might be different from the original. COMPARISON: None. FINDINGS: Proximal aorta: 2.6 x 2.6 cm (AP x trans verse) Mid aorta: 2.1 x 2.1 cm (AP x transverse ) Distal aorta: 2.1 x 2.2 cm (AP x transve rse) Right common iliac artery: 1.2 cm AP Left common iliac artery: 1.2 cm AP IMPRESSION IMPRESSION: No aneurysm seen. There is irregularity of the wall consistent with atherosclerosis. Shiraz ALVAREZ documented in this encounter Visit Diagnoses Diagnosis Tobacco use (HRC) Tobacco use disorder Family history of abdominal aortic aneur ysm Family history of other cardiovascular d iseases documented in this encounter Care Teams Pile Operator Relationship Specialty Start Date End Date Shiraz Simeon PA-C PCP - General 11/02/11 03/01/16 [address] [place] [address] documented as of this encounter
--- OUTSIDE RECORDS SUMMARY | 2022-05-31 14:45 | XMS_ITS | Encounter Summary ---
:1945 Author Organization [facility] Address [address] [place] [address] Care Team Providers Name Role Phone Shiraz Simeon PA-C Primary Care Provider Encounter Details Date Type Department Care Team Description 06/17/2012 [facility] [address] [place] [address] [phone] (Wo rk) Social History Tobacco Use Types Packs/Day Years Used Date Smoking Tobacco: Never Assessed Sex Assigned at Date Recorded Not on file documented as of this encounter Plan of Treatment Not on filedocumented as of this encounter Visit Diagnoses Not on filedocumented in this encounter Care Teams Shipyard Supervisor Relationship Specialty Start Date End Date Shiraz Simeon PA-C PCP - General 11/02/11 03/01/16 [address] [place] [address] documented as of this encounter
--- OUTSIDE RECORDS SUMMARY | 2022-05-31 14:45 | XMS_ITS | Encounter Summary ---
:1945 Author Organization [employer] Address [address] [place] [address] Care Team Providers Name Role Phone Shiraz Simeon PA-C Primary Care Provider Reason for Visit Reason Comments Provider Orders Encounter Details Date Type Department Care Team Description 04/19/2012 [facility] [address] Clemente MD Provider Orders Endoscopy [address] [place] [address] [place] [address] [phone] Social History Tobacco Use Types Packs/Day Years Used Date Smoking Tobacco: Never Assessed Sex Assigned at Date Recorded Not on file documented as of this encounter Nursing Notes Alex López RN - 04/19/2012 10:46 AM CDT patient contacted. will have labs next week with CT later in week. Annette Camacho RN - 04/19/2012 10:02 AM CDT Left msg to call back. Tyler Clemente MD - 04/19/2012 9:36 AM CDT I changed the order to the non-appy protocol. Thanks. Annette Camacho RN - 04/19/2012 9:19 AM CDT There are two different CT orders one with appy protocol, which one do you want? Thank you. Tyler Clemente MD - 04/19/2012 8:59 AM CDT I've ordered CT and some labs on this patient in endoscopy dept. documented in this encounter Plan of Treatment Not on filedocumented as of this encounter Visit Diagnoses Not on filedocumented in this encounter Care Teams Painter And Decorator Apprentice Relationship Specialty Start Date End Date Shiraz Simeon PA-C PCP - General 11/02/11 03/01/16 [address] [place], [place] [address] documented as of this encounter
--- OUTSIDE RECORDS SUMMARY | 2022-05-31 14:45 | XMS_ITS | Encounter Summary ---
:1945 Author Organization [facility] Address [address] [place] [address] Care Team Providers Name Role Phone Shiraz Simeon PA-C Primary Care Provider Reason for Visit Reason Comments Infusion Encounter Details Date Type Department Care Team Description 03/06/2012 Hospital Encounter [facility] Oncology Treatment [address] [place], [place] [address] Social History Tobacco Use Types Packs/Day Years Used Date Smoking Tobacco: Never Assessed Sex Assigned at Date Recorded Not on file documented as of this encounter Medications at Time of Discharge Medication Sig Dispensed Refills Start Date End Date ferrous gluconate Take 1 tablet by 30 tablet 3 01/04/2012 1 tabletIndications: GI mouth daily (every intolerance 24 hours). X 1 week, then if tolerated may increase to bid. (2 hours after meal). gabapentin (AKA Take 2-3 capsules 540 capsule 4 11/16/2011 0 10/30/2012 NEURONTIN) 100 MG by mouth 2 TIMES capsuleIndications: DAILY AC PRN for Restless legs syndrome Other. (RLS) prochlorPERAZINE (AKA Take 1 tablet by 60 tablet 2 02/20/20 12 10/30/2012 COMPAZINE) 10 MG mouth every 6 tabletIndications: Iron hours as needed deficiency anemia for Nausea. sertraline (AKA ZOLOFT) Take 1 tablet by 30 tablet 12 201110/30/2012 50 MG tabletIndications: mouth daily (every Generalized anxiety 24 hours). Take disorder (HRC) 1/2 tab daily x 6 days, then 1 tab daily thereafter. traMADol (AKA ULTRAM) 50 Take 1 tablet by 120 tablet 12 11/1510/30/2012 MG tabletIndications: mouth every 6 Chronic back pain hours as needed for Pain. omeprazole (PRILOSEC) 20 Take 1 capsule by 60 capsule 10/3010/30/2012 MG capsule mouth 2 times daily (before meals). documented as of this encounter Miscellaneous Notes Medication History - Cameron Reddy MD - 03/06/2012 11:59 PM CDT INPATIENT MEDS Encounter Date: 03/06/12 0.9% sodium chloride latex free syringe 20 mL Start Date:03/06/12, End Date:03/06/12, Frequency:PRN Taken Dose Action User Route Site Recorded Comment Reason 03/06/12 1454 10 mL Given Radha Acosta RN Intravenous - 03/06/12 1457 - - 03/06/12 1345 10 mL Given Ara Neal RN Intravenous - 03/06/12 1345 - - 0.9% sodium chloride flush 500 mL Start Date:03/06/12, End Date:03/06/12, Frequency:ONCE Taken Dose Action User Route Site Recorded Comment Reason 03/06/12 1453 500 mL Infused Radha Acosta RN Intravenous - 03/06/12 1457 - - 03/06/12 1344 250 mL Started Radha Acosta RN Intravenous - 03/06/12 1457 - - prochlorperazine (COMPAZINE) tablet 10 mg Start Date:03/06/12, End Date:03/06/12, Frequency:ONCE Taken Dose Action User Route Site Recorded Comment Reason 03/06/12 1340 10 mg Given Ara Neal RN Oral - 03/06/12 1345 - - iron sucrose (VENOFER) 200 mg in 0.9% sodium chloride 100 mL infusion Start Date:03/06/12, End Date:03/06/12, Frequency:ONCE Taken Dose Action User Route Site Recorded Comment Reason 03/06/12 1452 200 mg Infused Radha Acosta RN Intravenous - 03/06/12 1452 - - 03/06/12 1344 200 mg Started Ara Neal, RN Intravenous - 03/06/12 1344 - - documented in this encounter Plan of Treatment Not on filedocumented as of this encounter Visit Diagnoses Diagnosis Iron deficiency anemia Iron deficiency anemia, unspecified documented in this encounter Care Teams Staffing Administrator Relationship Specialty Start Date End Date Shiraz Simeon PA-C PCP - General 11/02/11 03/01/16 [address] [place], [place] [address] documented as of this encounter
--- OUTSIDE RECORDS SUMMARY | 2022-05-31 14:45 | XMS_ITS | Encounter Summary ---
:1945 Author Organization [facility] Address [address] [place] [address] Care Team Providers Name Role Phone Shiraz Simeon PA-C Primary Care Provider Reason for Visit Reason Comments IV,THERAPY Encounter Details Date Type Department Care Team Description 06/18/2012 Hospital Encounter [facility] Oncology Treatment R [address]oms [address] [place], [place] [address] Social History Tobacco Use Types Packs/Day Years Used Date Smoking Tobacco: Never Assessed Sex Assigned at Date Recorded Not on file documented as of this encounter Last Filed Vital Signs Vital Sign Reading Time Taken Comments Blood Pressure 86/55 06/18/2012 9:38 AM VIDEO GAME CREATOR Pulse 78 06/18/2012 9:38 AM VIDEO GAME CREATOR Temperature - - Respiratory Rate - - Oxygen Saturation - - Inhaled Oxygen Concentration - - Weight - - Height - - Body Mass Index - - documented in this encounter Medications at Time of Discharge Medication Sig Dispensed Refills Start Date End Date gabapentin (AKA NEURONTIN) Take 2-3 capsules 540 capsule 4 0 11/16/2011 10/30/2012 100 MG capsuleIndications: by mouth 2 TIMES Restless legs syndrome DAILY AC PRN for (RLS) Other. prochlorPERAZINE (AKA Take 1 tablet by 60 tablet 2 02/20/20 12 10/30/2012 COMPAZINE) 10 MG mouth every 6 tabletIndications: Iron hours as needed deficiency anemia for Nausea. sertraline (AKA ZOLOFT) 50 Take 1 tablet by 30 tablet 12 08/201110/30/2012 MG tabletIndications: mouth daily Generalized anxiety (every 24 hours). disorder (HRC) Take 1/2 tab daily x 6 days, then 1 tab daily thereafter. traMADol (AKA ULTRAM) 50 Take 1 tablet by 120 tablet 11/1510/30/2012 MG tabletIndications: mouth every 6 Chronic back pain hours as needed for Pain. omeprazole (PRILOSEC) 20 Take 1 capsule by 60 capsule 10/3010/30/2012 MG capsule mouth 2 times daily (before meals). documented as of this encounter Progress Notes Mame Gonzalez RN - 06/18/2012 11:59 PM CST Pts IV infiltrated approx 1/[address] through infusion. Pt unaware of any discomfort. When IV checked noted an edematous area approx the size of a quarter. NS also infusing along with the venofer. Pt denies any pain or discomfort at this time. Ice applied to area for approx 20 minutes. IV restarted and remaining venofer infused without complications. documented in this encounter Miscellaneous Notes Medication History - Cameron Reddy MD - 06/18/2012 11:59 PM CST INPATIENT MEDS Encounter Date: 06/18/12 0.9% sodium chloride latex free syringe 20 mL Start Date:06/18/12, End Date:06/20/12, Frequency:PRN *No Administrations Recorded 0.9% sodium chloride flush 500 mL Start Date:06/18/12, End Date:06/18/12, Frequency:ONCE Taken Dose Action User Route Site Recorded Comment Reason 06/18/12 1110 500 mL Infused Flakita Mantilla RN Intravenous - 06/18/12 1110 - - 06/18/12 0938 500 mL Started Mame Gonzalez RN Intravenous - 06/18/12 0938 - - prochlorperazine (COMPAZINE) tablet 10 mg Start Date:06/18/12, End Date:06/18/12, Frequency:ONCE Taken Dose Action User Route Site Recorded Comment Reason 06/18/12 0944 10 mg Given Mame Gonzalez RN Oral - 06/18/1245 - - iron sucrose (VENOFER) 200 mg in 0.9% sodium chloride 100 mL infusion Start Date:06/18/12, End Date:06/18/12, Frequency:ONCE Taken Dose Action User Route Site Recorded Comment Reason 06/18/12 1110 200 mg Infused Flakita Mantilla RN Intravenous - 06/18/12 1110 - - 06/18/12 0945 200 mg Started Mame Gonzalez RN Intravenous - 06/18/12944 - - O GAME CREATOR documented in this encounter Plan of Treatment Not on filedocumented as of this encounter Visit Diagnoses Diagnosis Iron deficiency anemia Iron deficiency anemia, unspecified documented in this encounter Care Teams Health Clinician Relationship Specialty Start Date End Date Shiraz Simeon PA-C PCP - General 11/02/11 03/01/16 [address] [place] [address] documented as of this encounter
--- OUTSIDE RECORDS SUMMARY | 2022-05-31 14:45 | XMS_ITS | Encounter Summary ---
:1945 Author Organization [employer] Address [address] [place] [address] Care Team Providers Name Role Phone Shiraz Simeon PA-C Primary Care Provider Reason for Visit Reason Comments RESULTS, TEST Encounter Details Date Type Department Care Team Description 05/02/2012 [facility] [address] Clemente MD RESULTS, TEST Gastroenterology [address] [place] [address] [place], [place] [address] [phone] Social History Tobacco Use Types Packs/Day Years Used Date Smoking Tobacco: Never Assessed Sex Assigned at Date Recorded Not on file documented as of this encounter Nursing Notes Genesis Farnsworth, EDWARD - 05/02/2012 11:06 AM CDT Pt requesting Ct results. Letter from Dr Clemente regarding Ct and blood tests reviewed with pt. Pt states she is doing better since procedure. Pt will buy Miralax as recommended. Pt states having back issues and will follow up with chiropractor. documented in this encounter Plan of Treatment Not on filedocumented as of this encounter Visit Diagnoses Not on filedocumented in this encounter Care Teams Director Equipment Relationship Specialty Start Date End Date Shiraz Simeon PA-C PCP - General 11/02/11 03/01/16 [address] [place] [address] documented as of this encounter
--- OUTSIDE RECORDS SUMMARY | 2022-05-31 14:45 | XMS_ITS | Encounter Summary ---
:1945 Author Organization [facility] Address [address], [place] [address] Care Team Providers Name Role Phone Shiraz Simeon PA-C Primary Care Provider Encounter Details Date Type Department Care Team Description 06/19/2012 [facility] Lorna Reeves Iron defici ency Encounter Keegan Henao MD anemia Center Oncology [address] [place] [address] [place] [address] [phone] Social History Tobacco Use Types Packs/Day Years [...] Medication History - Cameron Reddy MD - 06/19/2012 11:59 PM CST INPATIENT MEDS Encounter Date: 06/19/12 prochlorperazine (COMPAZINE) tablet 10 mg Start Date:06/19/12, End Date:06/19/12, Frequency:ONCE Taken Dose Action User Route Site Recorded Comment Reason 06/19/12 1007 10 mg Given Radha Salmeron RN Oral - 06/19/12 1007 - - iron sucrose (VENOFER) 200 mg in 0.9% sodium chloride 100 mL infusion Start Date:06/19/12, End Date:06/19/12, Frequency:ONCE Taken Dose Action User Route Site Recorded Comment Reason 06/19/12 1120 200 mg Infused Radha Salmeron RN Intravenous - 06/19/12 1120 - - 06/19/12 1007 200 mg Started Radha Salmeron RN Intravenous - 06/19/12 1007 - - 0.9% sodium chloride flush 500 mL Start Date:06/19/12, End Date:06/19/12, Frequency:ONCE Taken Dose Action User Route Site Recorded Comment Reason 06/19/12 1120 500 mL Infused Radha Salmeron RN Intravenous - 06/19/12 1120 - - 06/19/12 0950 500 mL Started Radha Salmeron RN Intravenous - 06/19/12 1008 - - R BROKER documented in this encounter Plan of Treatment Not on filedocumented as of this encounter Visit Diagnoses Diagnosis Iron deficiency anemia Iron deficiency anemia, unspecified documented in this encounter Care Teams Impact Retail Service Merchandiser Relationship Specialty Start Date End Date Shiraz Simeon PA-C PCP - General 11/02/11 03/01/16 [address] [place] [address] documented as of this encounter
--- OUTSIDE RECORDS SUMMARY | 2022-05-31 14:45 | XMS_ITS | Encounter Summary ---
:1945 Author Organization [facility] Address [address] [place] [address] Care Team Providers Name Role Phone Shiraz Simeon PA-C Primary Care Provider Reason for Visit Reason Comments Follow-up Encounter Details Date Type Department Care Team Description 04/04/2012 [facility] Anna Coreas, Iron defic iency anemia; Encounter [facility] Need for prophylactic vaccination and in oculation against influenza; [facility] [address] NSAID-induced gastric ulcer [address] [facility] [address] [place] [address] [phone] Social History Tobacco Use Types Packs/Day Years Used Date Smoking Tobacco: Never Assessed Sex Assigned at Date Recorded Not on file documented as of this encounter Last Filed Vital Signs Vital Sign Reading Time Taken Comments Blood Pressure 101/59 04/04/2012 9:58 AM CDT Pulse 96 04/04/2012 9:58 AM CDT Temperature 36.6 ??C (97.9 ??F) 04/04/2012 9:58 AM CDT Respiratory Rate - - Oxygen Saturation - - Inhaled Oxygen Concentration - - Weight 43.2 kg (95 lb 3.2 oz) 04/04/2012 9:58 AM CDT Height 157.5 cm (5' 2) 04/04/2012 9:58 AM CDT Body Mass Index 17.41 04/04/2012 9:58 AM CDT documented in this encounter Medications at Time [...] 20 Take 1 capsule by 60 capsule 11 10/3010/30/2012 MG capsule mouth 2 times daily (before meals). documented as of this encounter Progress Notes Anna orellana MD - 04/04/2012 11:43 AM CDT Progress Notes signed by Anna Coreas MD at 08/03/12 6886 Author: Anna Coreas MD Service: (none) Author Type: Physician Filed: 08/03/12 1102 Note Time: 04/04/12 1143 Status: Signed Strip Machine Tender: Anna Coreas MD (Physician) NAME: RONDA CORBIN MR#: [id number] CSN: [id number] AUTHENTICATING CLINICIAN: Anna Coreas MD CLINIC PROGRESS NOTE DATE OF VISIT: 04/04/2012 SUBJECTIVE: Follow up of iron deficiency. DIAGNOSIS: 1. Iron deficiency related to GI blood losses and associated peptic ulcer disease. 2. Recurrent peptic ulcer disease related to NSAIDs. 3. Generalized anxiety disorder. 4. Restless leg syndrome. 5. Chronic back pain. 6. YUNG/BSO. HEMATOLOGIC THERAPY: 1. Status post iron sucrose infusion 1200 mg given in 6 divided doses between 02/23/12 to 03/08/12. 2. Intolerant to oral iron supplementation. ALLERGIES: None. CURRENT MEDICATIONS: As reviewed and updated in [facility] health profile today. INTERIM HISTORY: Ms. Corbin clinically, overall, has been doing better since her last visit. Again, she really did nottolerate the oral iron supplementation and therefore, had not been taking it. As such, her hemoglobin had fallen from 9.6 down to 6.8 and requiring 2 units of leukopoor packed red blood cells. This improved her hemoglobin up to 10.9. Not surprisingly, her ferritin remained at a low level of 8. Given her oral intolerance to iron supplements, it was elected to replace her intravenously. She therefore received iron sucrose 200-mg infusions x6 doses, which she completed between 01/2012 and 03/2012. She tolerated the infusions well without adverse side-effects. Her hemoglobin has now improved up to 11.2 and MCV corrected from the 79 range now up to 89.4. Her ferritin is up to 202. She is due for a followup EGD on 04/19/12 to ensure healing of her large gastric ulcer. The plans are to consider a gastrin level and CT scan imaging if she really is not showing improvement in ulcer findings. Overall, she states her restless legs are markedly improved and actually have resolved since her iron replacement. Her stamina is much improved as well over the course of the day. 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 She is hoping at some point to be able to sell her property [place] and to be able to retire. She does have some occasional constipation and gassiness. It sounds as if she may need some dilatation of her pylorus at the time of herEGD by her report. We will look forward to her EGD results when the report is available in a couple of weeks. She has had no other episodes of melena, nor bright-red blood per rectum. She describes no unusual nausea or vomiting. She has had no other unusual headaches, visual changes, shortness breath, or otherunusual bony discomforts. PHYSICAL EXAM: BP: 101/59. T: 97.9. P: 96. WT: 95.2 lbs. GENERAL: A well-appearing 66-year-old female in otherwise good spirits in no acute distress. SKIN: Cool, dry, without rashes or lesions. There is no unusual bruising, purpura, or petechiae. HEENT: Pupils equal, round and reactive. Extraocular movements intact. Sclerae anicteric, conjunctivae pink and noninjected. Oropharynx: There is no oral cheilitis or stomatitis, glossitis. NECK: Supple, with no cervical supraclavicular, nor infraclavicular lymph nodes. No masses appreciated. AXILLAE: No lymphadenopathy bilaterally. HEART: Regular rate and rhythm. LUNGS: Clear to auscultation bilaterally without crackles, rhonchi, or wheezes. Breathing is unlabored. ABDOMEN: Normal active bowel sounds, soft nontender, nondistended, without hepatosplenomegaly or masses. No palpable inguinal lymph nodes. EXTREMITIES: No clubbing, cyanosis, nor edema. No swelling or erythema of any joint. There is no koilonychia. The fingernails are still a bit fragile, but without other pathology. NEURO: Alert and oriented x3, CN II-XII are intact, motor exam is grossly intact. LABS: WBC 12.4, HGB 11.2, MCV 89.4, platelets 292,000, with 10.3 neutrophils, 1.4 lymphs. Ferritin 202. ASSESSMENT/PLAN: 1. Iron-deficiency anemia related to peptic ulcer disease and gastrointestinal losses. 2. History of recurrent gastric ulcer, likely related to NSAIDs Ms. Corbin clinically is doing well. Overall, she is symptomatically improved from her iron deficiency, which has now been corrected with her iron replacement. I suspect some of her ongoing fatigue is more related to her current busy lifestyle rather than associated to any hematologic issues. I certainly would agree with Dr. Leblanc that further evaluation would be needed should she continue to show a nonhealing gastric ulcer at her next EGD in 2 weeks. We will follow along with close interest. She will continue on her Prilosec b.i.d. She is well aware to avoid any further NSAID-type products or thoseother agents that could cause gastric irritation. We will plan on following up her CBC and ferritin in about 2 months, and we will look for to seeing her back in 4 months, also with the same blood testing. She is well aware that she may have a fall inher hemoglobin and/or ferritin as her body utilizes the iron provided her with her recent infusions.Therefore, she may need repeat iron infusion in the future. Our goal will be to maintain her ferritin over 50. We will continue to monitor closely otherwise, and she feels comfortable with the plan as outlined above. All questions have otherwise been answered to her satisfaction. Total time: Twenty-five minutes. Total time: Twenty minutes reviewing rationale for ongoing surveillance and followup of iron deficiency, gastric ulcer, and iron infusion replacement. CC:MEDQ C: CONFIRM #: [id number] OR DB2 SYSTEMS PROGRAMMER documented in this encounter Plan of Treatment Not on filedocumented as of this encounter Visit Diagnoses Diagnosis Iron deficiency anemia Iron deficiency anemia, unspecified Need for prophylactic vaccination and in oculation against influenza NSAID-induced gastric ulcer Gastric ulcer, unspecified as acute or c hronic, without mention of hemorrhage, perforation, or obstruction documented in this encounter Care Teams Supervisor Print Line Relationship Specialty Start Date End Date Shiraz Simeon PA-C PCP - General 11/02/11 03/01/16 [address] [place] [address] documented as of this encounter
--- OUTSIDE RECORDS SUMMARY | 2022-05-31 14:45 | XMS_ITS | Encounter Summary ---
:1945 Author Organization [facility] Address [address] [place] [address] Care Team Providers Name Role Phone Shiraz Simeon PA-C Primary Care Provider Encounter Details Date Type Department Care Team Description 06/07/2012 Lab Visit [facility] Iron deficiency anemia [address] [place], [place] [id number] Social History Tobacco Use Types Packs/Day Years Used Date Smoking Tobacco: Never Assessed Sex Assigned at Date Recorded Not on file documented as of this encounter Miscellaneous Notes Miscellaneous - 08/11/2016 12:09 PM CSTNotes Recorded by Lorna Linder on 06/10/2012 at 1:20 PMPt is scheduled for iron tx on 06/17, 06/18, \T\ 06/19. Pt notified. Note complete.------Notes Recorded by Lydia Monk RN on 06/07/2012 at 4:58 PMFrontline: Please call pt to schedule Iron infusion, see below. Thanks. ------Notes Recorded by Anna Coreas MD on 06/07/2012 at 4:36 PMHgb does look good and stable. Ferritin is decreasing, likely due to her body's usage of the iron given.Recommend 3 days of Iron infusion in Mid-07/2012, before her 08/2012 appt with me.She can let us know which days she prefers. Can do txs weekly x 3 or 2 tx in 1 week and 1 tx the following week.Let me know the days and I can place orders in [place].Thanks.------Notes Recorded by Lydia Monk RN on 06/07/2012 at 2:44 PMPatient given results. She states she feels well better than she has in a long time. If you feel sheneeds to get IV iron she is okay with that. She said just schedule it and let her know when. Pt on recall for 4 month f/u in Aug 2012. Please advise. Thanks. DDLE BUG OPERATOR Miscellaneous - 08/11/2016 12:09 PM CSTNotes Recorded by Lorna Linder on 06/10/2012 at 1:20 PMPt is scheduled for iron tx on 06/17, 06/18, \T\ 06/19. Pt notified. Note complete.------Notes Recorded by Lydia Monk RN on 06/07/2012 at 4:58 PMFrontline: Please call pt to schedule Iron infusion, see below. Thanks. ------Notes Recorded by Anna Coreas MD on 06/07/2012 at 4:36 PMHgb does look good and stable. Ferritin is decreasing, likely due to her body's usage of the iron given.Recommend 3 days of Iron infusion in Mid-07/2012, before her 08/2012 appt with me.She can let us know which days she prefers. Can do txs weekly x 3 or 2 tx in 1 week and 1 tx the following week.Let me know the days and I can place orders in [place].Thanks.------Notes Recorded by Lydia Monk RN on 06/07/2012 at 2:44 PMPatient given results. She states she feels well better than she has in a long time. If you feel sheneeds to get IV iron she is okay with that. She said just schedule it and let her know when. Pt on recall for 4 month f/u in Aug 2012. Please advise. Thanks. DDLE BUG OPERATOR Carlos - 08/11/2016 12:09 PM CSTNotes Recorded by Lorna Linder on 06/10/2012 at 1:20 PMPt is scheduled for iron tx on 06/17, 06/18, \T\ 06/19. Pt notified. Note complete.------Notes Recorded by Lydia Monk RN on 06/07/2012 at 4:58 PMFrontline: Please call pt to schedule Iron infusion, see below. Thanks. ------Notes Recorded by Anna Coreas MD on 06/07/2012 at 4:36 PMHgb does look good and stable. Ferritin is decreasing, likely due to her body's usage of the iron given.Recommend 3 days of Iron infusion in Mid-07/2012, before her 08/2012 appt with me.She can let us know which days she prefers. Can do txs weekly x 3 or 2 tx in 1 week and 1 tx the following week.Let me know the days and I can place orders in [place].Thanks.------Notes Recorded by Lydia Monk RN on 06/07/2012 at 2:44 PMPatient given results. She states she feels well better than she has in a long time. If you feel sheneeds to get IV iron she is okay with that. She said just schedule it and let her know when. Pt on recall for 4 month f/u in Aug 2012. Please advise. Thanks. DDLE BUG OPERATOR documented in this encounter Plan of Treatment Not on filedocumented as of this encounter Procedures Procedure Name Priority Date/Time Associated Comments Diagnosis COMPLETE BLOOD STAT 06/07/2012 8:52 AM Iron deficiency Resu lts for this COUNT-W/DIFF STRADDLE BUG OPERATOR anemia procedure are i n the results section. DIFFERENTIAL STAT 06/07/2012 8:52 AM Results f or this STRADDLE BUG OPERATOR procedure are i n the results section. FERRITIN STAT 06/07/2012 8:52 AM Iron deficiency Result s for this STRADDLE BUG OPERATOR anemia procedure are i n the results section. documented in this encounter Results (ABNORMAL) Differential (06/07/2012 8:52 AM STRADDLE BUG OPERATOR) [facility] Method Time Signature Absolute 5.6 1.8 - 8.0 HP CONVERSION Neutrophils k/cmm Absolute 1.8 1.1 - 4.0 HP CONVERSION Lymphocytes k/cmm Absolute 1.1 (H) 0.2 - 0.8 HP CONVERSION Monocytes k/cmm Absolute 0.1 0.0 - 0.5 HP CONVERSION Eosinophils k/cmm Absolute 0.0 0.0 - 0.2 HP CONVERSION Basophils k/cmm Specimen Anatomical Collection Method Collection Time Receive d Time (Source) Location / / Volume Laterality 06/07/2012 8:52 AM 2 8:52 STRADDLE BUG OPERATOR AM STRADDLE BUG OPERATOR Narrative HP CONVERSION - 06/07/2012 8:58 AM STRADDLE BUG OPERATOR Performed at [facility], [address] [place] [address], [place] [address] Transcriptions 08/11/2016 12:09 PM CSTNotes Recorded by Lrona Linder on 06/10/2012 at 1:20 PMPt is scheduled for iron tx on 06/17, 06/18, \T\ 06/19. Pt notified. Note complete.------Notes Recorded by Lydia Monk RN on 06/07/2012 at 4:58 PM Frontline: Please call pt to schedule Ir on infusion, see below. Thanks.------Notes Recorded by Anna Coreas MD on 06/07/2012 at 4:36 PMHgb does look good and stable. Ferritin is decreasing, likely due to her body's usage of the iron given. Recommend 3 days of Iron infusion in Mid -07/2012, before her 08/2012 appt with me.She can let us know which days she prefers. Can do txs weekly x 3 or 2 tx in 1 week and 1 tx the following week.Let me know the days and I can place orders in [place]. Thanks.------Notes Recorded by Lydia bustillo RN on 06/07/2012 at 2:44 PMPatient given results. She states she feels well better than she has in a long time. If you feel she needs to get IV iron she is okay with th at. She said just schedule it and let her know when. Pt on recall for 4 month f/u in Aug 2012. Please advise. Thanks. Anna Coreas MD LAB_1 Performing Organization Address City/State/ZIP Code Phon e Number HP CONVERSION Ferritin (06/07/2012 8:52 AM STRADDLE BUG OPERATOR) athologist Signature Ferritin Serum 14 10 - 291 HP CONVERSION ng/mL Specimen Anatomical Collection Method Collection Time Receive d Time (Source) Location / / Volume Laterality 06/07/2012 8:52 AM 2 1:39 STRADDLE BUG OPERATOR PM STRADDLE BUG OPERATOR Transcriptions 08/11/2016 12:09 PM CSTNotes Recorded by Lorna Linder on 06/10/2012 at 1:20 PMPt is scheduled for iron tx on 06/17, 06/18, \T\ 06/19. Pt notified. Note complete.------Notes Recorded by Lydia Monk RN on 06/07/2012 at 4:58 PM Frontline: Please call pt to schedule Ir on infusion, see below. Thanks.------Notes Recorded by Anna Coreas MD on 06/07/2012 at 4:36 PMHgb does look good and stable. Ferritin is decreasing, likely due to her body's usage of the iron given. Recommend 3 days of Iron infusion in Mid -07/2012, before her 08/2012 appt with me.She can let us know which days she prefers. Can do txs weekly x 3 or 2 tx in 1 week and 1 tx the following week.Let me know the days and I can place orders in [place]. Thanks.------Notes Recorded by Lydia bustillo RN on 06/07/2012 at 2:44 PMPatient given results. She states she feels well better than she has in a long time. If you feel she needs to get IV iron she is okay with th at. She said just schedule it and let her know when. Pt on recall for 4 month f/u in Aug 2012. Please advise. Thanks. Anna Coreas MD LAB_1 Performing Organization Address City/State/ZIP Code Phon e Number HP CONVERSION (ABNORMAL) Hemogram/Plts/Diff (06/07/2012 8:52 AM STRADDLE BUG OPERATOR) [facility] Method Time Signature White Blood Cell 8.7 3.8 - HP CONVERSION Count 11.0 k/cmm Red Blood Cell 3.77 3.70 - HP CONVERSION Count 5.20 m/cmm Hemoglobin 11.4 (L) 11.8 - HP CONVERSION 15.5 g/dL Hematocrit 36.5 35.0 - HP CONVERSION 46.0 % Mean Corpuscular 96.8 80.0 - HP CONVERSION Volume 100.0 fL RDW 13.1 11.0 - HP CONVERSION 15.0 % Platelet Count 268 140 - 450 HP CONVERSION k/cmm Specimen Anatomical Collection Method Collection Time Receive d Time (Source) Location / / Volume Laterality 06/07/2012 8:52 AM 2 8:52 STRADDLE BUG OPERATOR AM STRADDLE BUG OPERATOR Narrative HP CONVERSION - 06/07/2012 8:58 AM STRADDLE BUG OPERATOR Performed at [facility], [address] [place] [address], [place] [address] Transcriptions 08/11/2016 12:09 PM CSTNotes Recorded by Lorna Linder on 06/10/2012 at 1:20 PMPt is scheduled for iron tx on 06/17, 06/18, \T\ 06/19. Pt notified. Note complete.------Notes Recorded by Lydia Monk RN on 06/07/2012 at 4:58 PM Frontline: Please call pt to schedule Ir on infusion, see below. Thanks.------Notes Recorded by Anna Coreas MD on 06/07/2012 at 4:36 PMHgb does look good and stable. Ferritin is decreasing, likely due to her body's usage of the iron given. Recommend 3 days of Iron infusion in Mid -07/2012, before her 08/2012 appt with me.She can let us know which days she prefers. Can do txs weekly x 3 or 2 tx in 1 week and 1 tx the following week.Let me know the days and I can place orders in [place]. Thanks.------Notes Recorded by Lydia bustillo RN on 06/07/2012 at 2:44 PMPatient given results. She states she feels well better than she has in a long time. If you feel she needs to get IV iron she is okay with th at. She said just schedule it and let her know when. Pt on recall for 4 month f/u in Aug 2012. Please advise. Thanks. Anna Coreas MD LAB_1 Performing Organization Address City/State/ZIP Code Phon e Number HP CONVERSION documented in this encounter Visit Diagnoses Diagnosis Iron deficiency anemia Iron deficiency anemia, unspecified documented in this encounter Care Teams Last Repairer Helper Relationship Specialty Start Date End Date Shiraz Simeon PA-C PCP - General 11/02/11 03/01/[address] [place] [address] [place] [address] documented as of this encounter
--- OUTSIDE RECORDS SUMMARY | 2022-05-31 14:45 | XMS_ITS | Encounter Summary ---
:1945 Author Organization [facility] Address [address] [place] [address] Care Team Providers Name Role Phone Shiraz Simeon PA-C Primary Care Provider Encounter Details Date Type Department Care Team Description 12/30/2012 Notes/Orders [facility] Lydia Solitario [facility] [address] [address] [phone] (Wo rk) Social History Tobacco Use Types Packs/Day Years Used Date Smoking Tobacco: Never Assessed Sex Assigned at Date Recorded Not on file documented as of this encounter Plan of Treatment Not on filedocumented as of this encounter Visit Diagnoses Not on filedocumented in this encounter Care Teams Overnight Houseperson Relationship Specialty Start Date End Date Shiraz Simeon PA-C PCP - General 11/02/11 03/01/16 [address] [place] [address] documented as of this encounter
--- OUTSIDE RECORDS SUMMARY | 2022-05-31 14:45 | XMS_ITS | Encounter Summary ---
:1945 Author Organization [facility] Address [address] [place] [address] Care Team Providers Name Role Phone Shiraz Simeon PA-C Primary Care Provider Reason for Visit Reason Comments Infusion Encounter Details Date Type Department Care Team Description 06/17/2012 Hospital Encounter [facility] Oncology Treatment [facility] [address] [place], [place] [address] Social History Tobacco Use Types Packs/Day Years Used Date Smoking Tobacco: Never Assessed Sex Assigned at Date Recorded Not on file documented as of this encounter Last Filed Vital Signs Vital Sign Reading Time Taken Comments Blood Pressure 101/52 06/17/2012 11:24 AM HEALTH ADVISOR Pulse 75 06/17/2012 11:24 AM HEALTH ADVISOR Temperature 36.7 ??C (98.1 ??F) 06/17/2012 11:24 AM HEALTH ADVISOR Respiratory Rate - - Oxygen Saturation - [...] 50 Take 1 tablet by 30 tablet 08/201110/30/2012 MG tabletIndications: mouth daily Generalized anxiety [...] Medication History - Cameron Reddy MD - 06/17/2012 11:59 PM CST INPATIENT MEDS Encounter Date: 06/17/12 0.9% sodium chloride latex free syringe 20 mL Start Date:06/17/12, End Date:06/19/12, Frequency:PRN Taken Dose Action User Route Site Recorded Comment Reason 06/17/12 0954 10 mL Given Mauricio Mendes RN Intravenous - 06/17/12 1001 - - 0.9% sodium chloride flush 500 mL Start Date:06/17/12, End Date:06/17/12, Frequency:ONCE Taken Dose Action User Route Site Recorded Comment Reason 06/17/12 0955 500 mL Infused Mauricio Mendes RN Intravenous - 06/17/12 1134 - - prochlorperazine (COMPAZINE) tablet 10 mg Start Date:06/17/12, End Date:06/17/12, Frequency:ONCE Taken Dose Action User Route Site Recorded Comment Reason 06/17/12 0955 10 mg Given Mauricio Mendes RN Oral - 06/17/12 1000 - - iron sucrose (VENOFER) 200 mg in 0.9% sodium chloride 100 mL infusion Start Date:06/17/12, End Date:06/17/12, Frequency:ONCE Taken Dose Action User Route Site Recorded Comment Reason 06/17/12 1115 200 mg Infused Mauricio Mendes RN Intravenous - 06/17/12 1134 - - 06/17/12 1001 200 mg Given Mauricio Mendes RN Intravenous - 06/17/12 1001 - - TH ADVISOR documented in this encounter Plan of Treatment Not on filedocumented as of this encounter Visit Diagnoses Diagnosis Iron deficiency anemia Iron deficiency anemia, unspecified documented in this encounter Care Teams Engraver Tire Mold Relationship Specialty Start Date End Date Shiraz Simeon PA-C PCP - General 11/02/11 03/01/16 [address] [place] [address] documented as of this encounter
--- OUTSIDE RECORDS SUMMARY | 2022-05-31 14:45 | XMS_ITS | Encounter Summary ---
:1945 Author Organization [facility] Address [address] [place] [address] Care Team Providers Name Role Phone Shiraz Simeon PA-C Primary Care Provider Encounter Details Date Type Department Care Team Description 04/19/2012 [facility] NSAID-induced gastric Endoscopy ulcer 6500 [facility] [address] Social History Tobacco Use Types Packs/Day Years Used Date Smoking Tobacco: Never Assessed Sex Assigned at Date Recorded Not on file documented as of this encounter Last Filed Vital Signs Vital Sign Reading Time Taken Comments Blood Pressure 92/60 04/19/2012 9:30 AM CDT Pulse 68 04/19/2012 9:30 AM CDT Temperature - - Respiratory Rate 18 04/19/2012 9:30 AM CDT Oxygen Saturation 97% 04/19/2012 9:30 AM CDT Inhaled Oxygen Concentration - - Weight - [...] documented as of this encounter Progress Notes Annelise Oquendo RN - 04/19/2012 9:36 AM CDT Patient states I always run a low [facility] clinic records verify this Systolic on dc 90 see flowsheet Michelle Michelle RN - 04/19/2012 8:49 AM CDT patient tolerated procedure. patient given pain med's intermittently for discomfort.. documented in this encounter Procedure Notes Tyler Clemente MD - 04/19/2012 7:40 AM CDT Procedures signed by Tyler Clemente MD at 04/19/12739 Author: Tyler Clemente MD Service: (none) Author Type: Physician Filed: 04/19/12 0857 Note Time: 04/19/12739 Status: Signed Chainsaw Mechanic: Tyler Clemente MD (Physician) Patient Name: Shruti Corbin Gender: Anne Procedure Date: 04/19/2012 07:40:00 AM Date of : 1945 Age: 66 Admit Type: Outpatient Note Status: Finalized Attending MD: Tyler Clemente MD Procedure: Upper GI endoscopy Indications: Follow-up of acute gastric ulcer Providers: Tyler Clemente MD, Michelle Michelle RN Referring MD: Tyler Clemente MD, Anna Coreas MD, ZAHIDA Guardado Medicines: Midazolam 2.5 mg IV, Fentanyl 100 micrograms IV, Benzocaine spray Complications: No immediate complications. Estimated blood loss: None. Procedure: - Prior to the procedure, a History and Physical was performed, and patient medications and allergies were reviewed. The patient is competent. The risks and benefits of the procedure and the sedation options and risks were discussed with the patient. All questions were answered and informed consent was obtained. Patient identification and proposed procedure were verified by the physician at 08:17 AM. Mental Status Examination: alert and oriented. Respiratory Examination: clear to auscultation. CV Examination: regular rate and rhythm. After reviewing the risks and benefits, the patient was deemed in satisfactory condition to undergo the procedure. The anesthesia plan was to use moderate sedation / analgesia (conscious sedation). Immediately prior to administration of medications, the patient was re-assessed for adequacy to receive sedatives. The heart rate, respiratory rate, oxygen saturations, blood pressure, adequacy of pulmonary ventilation, and response to care were monitored throughout the procedure. The physical status of the patient was re-assessed after the procedure. After obtaining informed consent, the endoscope was passed under direct vision. Throughout the procedure, the patient's blood pressure, pulse, and oxygen saturations were monitored continuously. The GIF-H180-8 gastroscope was introduced through the mouth, and advanced to the duodenal bulb. The upper GI endoscopy was somewhat difficult due to presence of food. The patient tolerated the procedure well. Findings: The examined esophagus was normal. Few non-bleeding cratered gastric ulcers with no stigmata of bleeding were found in the gastric body and in the gastric antrum. The largest lesion was 30 mm in largest dimension. Biopsies were taken with a cold forceps for histology. A benign-appearing, intrinsic moderate stenosis was found at the pylorus. This was traversed. A TTS dilator was passed through the scope. Dilation with an 8-9-10 mm pyloric balloon dilator was performed. The duodenal bulb was normal. Impression: - Normal esophagus. - Gastric ulcers with clean base. This was biopsied. - Gastric stenosis was found at the pylorus. S/P balloon dilation. Able to enter duodenal bulb. Unable to traverse distally due to scope looping in a dilated stomach. - Retained food debris C/W partial gastric outlet obstruction. Grossly distorted distal stomach with scarring made defining anatomy challenging. - Normal duodenal bulb. - Endoscopic finding are largely unchanged C/W 01/10 EGD. Patient reports no aspirin/NSAID use. Recommendation: - Continue present medications. - Await pathology results. - Gastrin level, abd CT scan. Possible surgical consultation. 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 All Rights Reserved. The codes documented in this report are preliminary and upon desktop operator review may be revised to meet current compliance requirements. Tyler Clemente MD Signed Date: 04/19/2012 08:57:25 AM Number of Addenda: 0 This document has been electronically signed. Note initiated on 04/19/2012 07:38:59 AM documented in this encounter Miscellaneous Notes Medication History - Cameron Reddy MD - 04/19/2012 11:59 PM CDT INPATIENT MEDS Encounter Date: 04/19/12 0.9% sodium chloride latex free syringe 10 mL Start Date:04/19/12, End Date:04/20/12, Frequency:PRN Taken Dose Action User Route Site Recorded Comment Reason 04/19/12 0848 10 mL Given Michelle Michelle RN Intravenous - 04/19/12 0848 - - Fentanyl Citrate (PF) (SUBLIMAZE) injection 25-100 mcg Start Date:04/19/12, End Date:04/20/12, Frequency:PRN Taken Dose Action User Route Site Recorded Comment Reason 04/19/12 0849 100 mcg Given Michelle Michelle RN Intravenous - 04/19/12 0849 - - midazolam (VERSED) injection 0.5-2 mg Start Date:04/19/12, End Date:04/20/12, Frequency:PRN Taken Dose Action User Route Site Recorded Comment Reason 04/19/12 0849 2.5 mg Given Michelle Michelle RN Intravenous - 04/19/12 0849 - - ondansetron (ZOFRAN) injection 4 mg Start Date:04/19/12, End Date:04/20/12, Frequency:PRN *No Administrations Recorded benzocaine (HURRICAINE) 20 % spray Start Date:04/19/12, End Date:04/20/12, Frequency:PRN Taken Dose Action User Route Site Recorded Comment Reason 04/19/12 0849 1 spray Given Michelle Michelle RN Mouth/Throat - 04/19/12 0849 - - Fentanyl Citrate (PF) (SUBLIMAZE) 100 mcg/2 mL (50 mcg/mL) injection Start Date:04/19/12, End Date:-, Frequency:- *No Administrations Recorded midazolam (VERSED) 1 mg/mL injection Start Date:04/19/12, End Date:-, Frequency:- *No Administrations Recorded 0.9% sodium chloride latex free syringe Start Date:04/19/12, End Date:-, Frequency:- *No Administrations Recorded documented in this encounter Plan of Treatment Not on filedocumented as of this encounter Procedures Procedure Name Priority Date/Time Associated Comments Diagnosis CT ABD PELVIS W IV Routine 04/25/2012 11:55 AM NSAID-induced R esults for this CONT CDT gastric ulcer procedure are in the results section. ENDOSCOPY OBTAINED Routine 04/19/2012 8:48 AM Res ults for this ANATOMICAL PATH CDT procedure ar e in the results section. SURGICAL PATH, PARK Routine 04/19/2012 8:48 AM Re sults for this NICOLLET CDT procedure are i n the results section. documented in this encounter Results CT Abd Pelvis W IV Cont (04/25/2012 11:55 AM CDT) Anatomical Region Laterality Modality Abdomen, Pelvis Other Specimen (Source) Anatomical Location Collection Method / Collectio n Time Received Time / Laterality Volume Impressions 04/25/2012 1:20 PM CDT IMPRESSION: ??No evidence for mass or other cause for the patient's gastric outlet obstruction. ? Narrative 04/25/2012 1:20 PM CDT COMPARISON: ??None. ? TECHNIQUE: ??Images were obtained throug h the abdomen and pelvis following the uncomplicated administrati on of 100 mL intravenous Optiray. ? FINDINGS: ??Limited images through the l nai bases are clear. ? A paucity of intraperitoneal fat and a s coliotic curvature of the thoracolumbar spine distorts the anatomy and makes evaluation challenging. ?? There is particulate mat ter within the stomach, which appears mildly distended proximally, but demonstrates a more normal caliber beginning at the level of the ga stric antrum. ??The duodenal sweep appears within normal limits. ??Th e proximal jejunum, just beyond the level of the ligament of Trei tz, appears mildly distended (image 30), however the remaining small bowel is largely unremarkable. ??There is no obvious mass accounting for gastric outlet obstruction. ??The liver, spleen, pancre as, adrenal glands, gallbladder and kidneys are unremarkable . ?? There is a large amount stool throughout the colon with particulate matter also demonstrated in the distal s mall bowel. ??The position of the cecum and ileocecal valve are deep i n the right pelvis. ??The remaining colon is unremarkable. There i s no adenopathy, free fluid, or acute inflammatory change in the abdo men or pelvis. ??The uterus is surgically absent. ? Procedure Note Rafaela Perez MD - 12/18/2015Formattin g of this note might be different from the original. COMPARISON: None. TECHNIQUE: Images were obtained through the abdomen and pelvis following the uncomplicated administrati on of 100 mL intravenous Optiray. FINDINGS: Limited images through the odalis g bases are clear. A paucity of intraperitoneal fat and a s coliotic curvature of the thoracolumbar spine distorts the anatomy and makes evaluation challenging. There is particulate matter within the stomach, which appears mildly distended proximally, but demonstrates a more normal caliber beginning at the level of the ga stric antrum. The duodenal sweep appears within normal limits. The proximal jejunum, just beyond the level of the ligament of Trei tz, appears mildly distended (image 30), however the remaining small bowel is largely unremarkable. There is no obvious mass a ccounting for gastric outlet obstruction. The liver, spleen, pancreas , adrenal glands, gallbladder and kidneys are unremarkable . There is a large amount stool throughout the colon with particulate matter also demonstrated in the distal s mall bowel. The position of the cecum and ileocecal valve are deep i n the right pelvis. The remaining colon is unremarkable. There i s no adenopathy, free fluid, or acute inflammatory change in the abdo men or pelvis. The uterus is surgically absent. IMPRESSION IMPRESSION: No evidence for mass or othe r cause for the patient's gastric outlet obstruction. Tyler Clemente MD RAD CT Pathology Report (04/19/2012 8:48 AM CDT) Specimen (Source) Anatomical Collection Method Collection Time Re ceived Time Location / / Volume Laterality 04/19/2012 8:48 AM CDT Narrative HP CONVERSION - 04/22/2012 3:18 PM CDT ?Final SURGICAL PATHOLOGY REPORT Pathology #: [id number] ? Date Obtained: 04/19/2012 ?Date Received: 04/19/2012 DIAGNOSIS: Gastric biopsy: 1. Ulcer with inflammation and gastric mucosa with features of ?? reactive/chemical gastropathy. 2. No metaplasia, dysplasia or neoplasm . 3. No organisms identified by immunohis tochemistry for Helicobacter. ?LISSET JIMENEZ MD ? (electronic signature) ? 04/22/2012 ??15:18 CLINICAL NOTES: Recheck ulcer ORGAN/TISSUE SITE: Gastric biopsy GROSS DESCRIPTION: The specimen is labeled gastric and con sists of multiple house mucosal tissue fragments averaging 0.2 cm in gr eatest dimension. ??Entirely submitted in cassette [id number]. ? WEYAL MICROSCOPIC DESCRIPTION: Microscopic examination performed. CPT Codes: ?22076 x 1 ??73964 x 1 ? End of Report Tyler Clemente MD LAB_1 Performing Organization Address City/[facility]/ZIP Code Phon e Number HP CONVERSION ENDOSCOPY OBTAINED ANATOMICAL PATH (04/19/2012 8:48 AM CDT) athologist Signature Endo Tis See Path HP CONVERSION Specimen (Source) Anatomical Collection Method Collection Time Re ceived Time Location / / Volume Laterality 04/19/2012 8:48 AM CDT Tyler Clemente MD LAB_1 Performing Organization Address [facility] Phon e Number HP CONVERSION documented in this encounter Visit Diagnoses Diagnosis NSAID-induced gastric ulcer Gastric ulcer, unspecified as acute or c hronic, without mention of hemorrhage, perforation, or obstruction documented in this encounter Care Teams Cloth Bleaching Range Tender Relationship Specialty Start Date End Date Shiraz Simeon PA-C PCP - General 11/02/11 03/01/16 [address] [place] [address] documented as of this encounter
--- OUTSIDE RECORDS SUMMARY | 2022-05-31 14:45 | XMS_ITS | Encounter Summary ---
:1945 Author Organization [employer] Address [address] [place] [address] Care Team Providers Name Role Phone Shiraz Simeon PA-C Primary Care Provider Encounter Details Date Type Department Care Team Description 12/27/2012 Lab Visit [facility] Iron deficiency anemia [address] [place], [place] [id number] Social History Tobacco Use Types Packs/Day Years Used Date Smoking Tobacco: Never Assessed Sex Assigned at Date Recorded Not on file documented as of this encounter Miscellaneous Notes Miscellaneous - 08/11/2016 5:56 AM CSTNotes Recorded by Lydia Monk RN on 12/30/2012 at 3:43 PMDiscussed with patient on 12/27/12 and feels okay. Pt scheduled for treatment this week and next week. Note complete.------Notes Recorded by Anna Coreas MD on 12/27/2012 at 2:53 PMMay inform pt iron level running low again, and Hgb mildly lower in the 10gm/dl range.She would benefit from more Iron replacement, I would plane 5 doses, 1 dose 2 times per week.She can let us know when he would like treatment to start and which days.She will have appt with me early next week, (which I do hope to be able to make).thanks OAT DISPATCHER Miscellaneous - 08/11/2016 5:56 AM CSTNotes Recorded by Lydia Monk RN on 12/30/2012 at 3:43 PMDiscussed with patient on 12/27/12 and feels okay. Pt scheduled for treatment this week and next week. Note complete.------Notes Recorded by Anna Coreas MD on 12/27/2012 at 2:53 PMMay inform pt iron level running low again, and Hgb mildly lower in the 10gm/dl range.She would benefit from more Iron replacement, I would plane 5 doses, 1 dose 2 times per week.She can let us know when he would like treatment to start and which days.She will have appt with me early next week, (which I do hope to be able to make).thanks OAT DISPATCHER Miscellaneous - 08/11/2016 5:56 AM CSTNotes Recorded by Lydia Monk RN on 12/30/2012 at 3:43 PMDiscussed with patient on 12/27/12 and feels okay. Pt scheduled for treatment this week and next week. Note complete.------Notes Recorded by Anna Coreas MD on 12/27/2012 at 2:53 PMMay inform pt iron level running low again, and Hgb mildly lower in the 10gm/dl range.She would benefit from more Iron replacement, I would plane 5 doses, 1 dose 2 times per week.She can let us know when he would like treatment to start and which days.She will have appt with me early next week, (which I do hope to be able to make).thanks OAT DISPATCHER documented in this encounter Plan of Treatment Not on filedocumented as of this encounter Procedures Procedure Name Priority Date/Time Associated Comments Diagnosis COMPLETE BLOOD STAT 12/27/2012 9:00 AM Iron deficiency Resu lts for this COUNT-W/DIFF CDT anemia procedure are i n the results section. DIFFERENTIAL STAT 12/27/2012 9:00 AM Results f or this CDT procedure are i n the results section. FERRITIN STAT 12/27/2012 9:00 AM Iron deficiency Result s for this CDT anemia procedure are i n the results section. documented in this encounter Results Differential (12/27/2012 9:00 AM CDT) P athologist Signature Absolute 5.2 1.8 - 8.0 HP CONVERSION Neutrophils k/cmm Absolute 1.2 1.1 - 4.0 HP CONVERSION Lymphocytes k/cmm Absolute 0.8 0.2 - 0.8 HP CONVERSION Monocytes k/cmm Absolute 0.1 0.0 - 0.5 HP CONVERSION Eosinophils k/cmm Absolute 0.1 0.0 - 0.2 HP CONVERSION Basophils k/cmm Specimen Anatomical Collection Method Collection Time Receive d Time (Source) Location / / Volume Laterality 12/27/2012 9:00 AM 3 9:00 CDT AM CDT Narrative HP CONVERSION - 12/27/2012 9:04 AM CDT Performed at [facility], [address] [place] [id number] Transcriptions 08/11/2016 5:56 AM CSTNotes Recorded by Lydia Monk RN on 12/30/2012 at 3:43 PMDiscussed with patient on 12/27/12 and feels okay. Pt scheduled for treatment this week and next week. Note complete.------ Notes Recorded by Anna Coreas MD on at 2:53 PMMay inform pt iron level running low again, and Hgb mildly lower in the 10gm/dl range.She would benefit from more Iron replacement, I would plane 5 doses, 1 dose 2 times per week. She can let us know when he would like t reatment to start and which days.She will have appt with me early next week, (which I do hope to be able to make).thanks Anna Coreas MD LAB_1 Performing Organization Address City/State/ZIP Code Phon e Number HP CONVERSION (ABNORMAL) Ferritin (12/27/2012 9:00 AM CDT) athologist Signature Ferritin Serum 4 (L) 10 - 291 HP CONVERSION ng/mL Specimen Anatomical Collection Method Collection Time Receive d Time (Source) Location / / Volume Laterality 12/27/2012 9:00 AM 3 1:53 CDT PM CDT Transcriptions 08/11/2016 5:56 AM CSTNotes Recorded by Lydia Monk RN on 12/30/2012 at 3:43 PMDiscussed with patient on 12/27/12 and feels okay. Pt scheduled for treatment this week and next week. Note complete.------ Notes Recorded by Anna Coreas MD on at 2:53 PMMay inform pt iron level running low again, and Hgb mildly lower in the 10gm/dl range.She would benefit from more Iron replacement, I would plane 5 doses, 1 dose 2 times per week. She can let us know when he would like t reatment to start and which days.She will have appt with me early next week, (which I do hope to be able to make).thanks Anna Coreas MD LAB_1 Performing Organization Address City/State/ZIP Code Phon e Number HP CONVERSION (ABNORMAL) Hemogram/Plts/Diff (12/27/2012 9:00 AM CDT) [facility] Method Time Signature White Blood Cell 7.3 3.8 - HP CONVERSION Count 11.0 k/cmm Red Blood Cell 3.94 3.70 - HP CONVERSION Count 5.20 m/cmm Hemoglobin 10.4 (L) 11.8 - HP CONVERSION 15.5 g/dL Hematocrit 34.3 (L) 35.0 - HP CONVERSION 46.0 % Mean Corpuscular 87.1 80.0 - HP CONVERSION Volume 100.0 fL RDW 14.5 11.0 - HP CONVERSION 15.0 % Platelet Count 275 140 - 450 HP CONVERSION k/cmm Specimen Anatomical Collection Method Collection Time Receive d Time (Source) Location / / Volume Laterality 12/27/2012 9:00 AM 3 9:00 CDT AM CDT Narrative HP CONVERSION - 12/27/2012 9:04 AM CDT Performed at [facility], [address] [place] [id number] Transcriptions 08/11/2016 5:56 AM CSTNotes Recorded by Lydia Monk RN on 12/30/2012 at 3:43 PMDiscussed with patient on 12/27/12 and feels okay. Pt scheduled for treatment this week and next week. Note complete.------ Notes Recorded by Anna Coreas MD on at 2:53 PMMay inform pt iron level running low again, and Hgb mildly lower in the 10gm/dl range.She would benefit from more Iron replacement, I would plane 5 doses, 1 dose 2 times per week. She can let us know when he would like t reatment to start and which days.She will have appt with me early next week, (which I do hope to be able to make).thanks Anna Coreas MD LAB_1 Performing Organization Address City/State/ZIP Code Phon e Number HP CONVERSION documented in this encounter Visit Diagnoses Diagnosis Iron deficiency anemia Iron deficiency anemia, unspecified documented in this encounter Care Teams River Expedition Guide Relationship Specialty Start Date End Date Shiraz Simeon PA-C PCP - General 11/02/11 03/01/16 [address] [place], [place] [id number] documented as of this encounter
--- OUTSIDE RECORDS SUMMARY | 2022-05-31 14:45 | XMS_ITS | Encounter Summary ---
:1945 Author Organization [employer] Address [address] [place] [address] Care Team Providers Name Role Phone Shiraz Simeon PA-C Primary Care Provider Reason for Visit Reason Comments MEDICATION CHECK Encounter Details Date Type Department Care Team Description 10/30/2012 Office Visit Shiraz Cabezas, Restless legs syndrome (RLS) (Primary Dx); [address] PA-C Generalized anxiety disorder; [place] [address] Chronic back pain; [phone] [place] [address] NSAID-induced gastric ulcer; [phone] Iron deficiency anemia; (Work) Need for dnwjshhsni-qrwmgor-kzhtmeexy (T dap) vaccine; [phone] Need for pneumo coccal vaccination; (Fax) Screening susana sterol level; Trigger finger (acquired) Social History Tobacco Use Types Packs/Day Years Used Date Smoking Tobacco: Never Assessed Sex Assigned at Date Recorded Not on file documented as of this encounter Last Filed Vital Signs Vital Sign Reading Time Taken Comments Blood Pressure 114/66 10/30/2012 9:25 AM CDT Pulse 72 10/30/2012 9:25 AM CDT Temperature - - Respiratory Rate - - Oxygen Saturation - - Inhaled Oxygen Concentration - - Weight 53.1 kg (117 lb) 10/30/2012 9:25 AM CDT Height - - Body Mass Index 21.4 04/04/2012 9:58 AM CDT documented in this encounter Patient Instructions Patient InstructionsShShiraz anand PA-C - 10/30/2012 9:47 AM CDT Please make an appointment with the Orthopedic department at the [facility] by calling [phone]. documented in this encounter Progress Notes Shiraz Simeon PA-C - 10/30/2012 10:43 AM CDT Clinic Visit Subjective: History of Present Illness: This 67 y.o. female presents today for evaluation of the following concern(s): Medication check, Right finger swelling and locking NSAID-induced gastric ulcer Reports that she has no abdominal pain, no chest pain, no tarry or black stools, no anorexia, no nausea, no vomiting, and no continued weight loss. Her appetite has been great, she tells me she has been eating like a piggy. She has completely stopped NSAIDs as per the advice of Dr. Clemente last fall after her latest endoscopy and biopsies. She does not smoke. At this stage, sill taking her PPI daily, and having no troubles with that. Plans to continue, needs prescription renewal. No current questions or concerns. Iron deficiency anemia Despite feeling like her gastric ulcer has healed, her hemoglobin and ferritin levels have not come up into normal range again. She has had several iron infusions, most recent late fall 2011. She is due to see her stoker installer, and would like her labs done today in anticipation of that visit. She feels great, without shortness of breath, dyspnea on exertion, fatigue, headaches, or chest pain. Generalized anxiety disorder LILI-7 score of 2. Tolerating her SSRI very well, and would like to continue it. She is active, engaged, motivated to do things, and sleeping well. Chronic back pain Doing well without being able to take NSAIDs for her back pain. Continues gabapentin on a daily basis, and tramadol a couple times a day to 3 times a day as needed for more acute discomfort. No increase in her back symptoms. Denies any radiating pain into lower extremities or groin, denies paresthesias, and denies weakness in her lower extremities. No adverse effects from her medications. Right finger pain, swelling, and locking For a couple of months now, her right finger is swollen, stiff, and sore in the mornings. It will get stuck in the flexed position. Hurts the more she writes, though she can type on the keyboard all day without discomfort. She had slammed this finger in a car door when she was little, and has always assumed she would get arthritis there. Wonders if that is what might be going on. She is unable to take any NSAIDs, due to history of NSAID-induced gastric ulcer, chronic. Has been stretching it and massaging it, no other treatments tried. Past Medical History: Patient Active Problem List Diagnosis ??? Generalized anxiety disorder ??? Restless legs syndrome (RLS) ??? Chronic back pain ??? Iron deficiency anemia ??? NSAID-induced gastric ulcer Past Surgical History: Past Surgical History Procedure Laterality Date ??? Brandon and bso abnormal pap, patient requested ??? Hysterectomy Adverse Drug Reactions: is allergic to ferrous sulfate. Medications: has a current medication list which includes the following prescription(s): gabapentin,omeprazole, sertraline, and tramadol. Family History: family history includes AAA in her sister; High Cholesterol in her brother; Hypertension in her brother; Osteoarthritis in her mother; PUD in her mother; and Renal Failure in her sister. Social History: Smoking: reports that she has been smoking Cigarettes. She has a 15 pack-year smoking history. She has never used smokeless tobacco. Alcohol: reports that she does not drink alcohol. Drugs: reports that she does not use illicit drugs. 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 OBJECTIVE: Vital Signs: BP 114/66 Pulse 72 Wt 117 lb (53.071 kg) BMI 21.39 kg/m2 General appearance: alert, cooperative, no distress, appears stated age, Lungs: clear to auscultation bilaterally, Heart: regular rate and rhythm, S1, S2 normal, no murmur, click, rub or gallop, Abdomen: soft, non-tender; bowel sounds normal; no masses, no organomegaly, Extremities: extremities normal, atraumatic, no cyanosis or edema, Pulses: 2+ and symmetric and Skin: Skin color, texture, turgor normal. No rashes or lesions ASSESSMENT/PLAN: Shruti was seen today for medication check. Diagnoses and associated orders for this visit: Restless legs syndrome (RLS) Generalized anxiety disorder - sertraline (ZOLOFT) 50 mg tablet; Take 1 tablet by mouth daily (every 24 hours). Take 1/2 tab daily x 6 days, then 1 tab daily thereafter. Chronic back pain - gabapentin (NEURONTIN) 100 mg capsule; Take 2-3 capsules by mouth 2 TIMES DAILY AC PRN for Other. - traMADol (ULTRAM) 50 mg tablet; Take 1 tablet by mouth every 6 hours as needed for Pain. - Alanine Aminotransferase; Future - Creatinine; Future - BUN; Future NSAID-induced gastric ulcer - omeprazole (PRILOSEC) 20 mg capsule; Take 1 capsule by mouth 2 times daily (before meals). Iron deficiency anemia - Complete Blood Count W/Diff; Future - Ferritin; Future - Iron Binding Capacity (Incl Iron); Future Need for xiyyxfusis-jwkhktc-cnafapeaq (Tdap) vaccine - Tdap (BOOSTRIX) Need for pneumococcal vaccination - PPSV (Pneumovax) Counseling completed for all immunization components that were given to the patient today. Screening cholesterol level - Cholesterol Fraction-LDLD If Trig High; Future Trigger finger (acquired) - Ambulatory referral to Orthopedics; Future Phone number given to schedule with Orthopedics. Discharged ambulatory and in stable condition. documented in this encounter Miscellaneous Notes Assessment & Plan Note - Shiraz Simeon PA-C - 10/30/2012 10:39 AM CDT Doing well without being able to take NSAIDs for her back pain. Continues gabapentin on a daily basis, and tramadol a couple times a day to 3 times a day as needed for more acute discomfort. No increase in her back symptoms. Denies any radiating pain into lower extremities or groin, denies paresthesias, and denies weakness in her lower extremities. No adverse effects from her medications. Assessment & Plan Note - Shiraz Simeon PA-C - 10/30/2012 10:38 AM CDT LILI-7 score of 2. Tolerating her SSRI very well, and would like to continue it. She is active, engaged, motivated to do things, and sleeping well. Assessment & Plan Note - Shiraz Simeon PA-C - 10/30/2012 10:37 AM CDT Despite feeling like her gastric ulcer has healed, her hemoglobin and ferritin levels have not come up into normal range again. She has had several iron infusions, most recent late fall 2011. She is due to see her stoker installer, and would like her labs done today in anticipation of that visit. She feels great, without shortness of breath, dyspnea on exertion, fatigue, headaches, or chest pain. Assessment & Plan Note - Shiraz Simeon PA-C - 10/30/2012 10:36 AM CDT Reports that she has no abdominal pain, no chest pain, no tarry or black stools, no anorexia, no nausea, no vomiting, and no continued weight loss. Her appetite has been great, she tells me she has been eating like a piggy. She has completely stopped NSAIDs as per the advice of Dr. Clemente last fall after her latest endoscopy and biopsies. She does not smoke. At this stage, sill taking her PPI daily, and having no troubles with that. Plans to continue, needs prescription renewal. No current questions or concerns. documented in this encounter Plan of Treatment Not on filedocumented as of this encounter Visit Diagnoses Diagnosis Restless legs syndrome (RLS) - Primary Generalized anxiety disorder (HRC) Generalized anxiety disorder Chronic back pain Backache, unspecified NSAID-induced gastric ulcer Gastric ulcer, unspecified as acute or c hronic, without mention of hemorrhage, perforation, or obstruction Iron deficiency anemia Iron deficiency anemia, unspecified Need for detgaxutqu-rvxdzkg-edamvlgad (T dap) vaccine Need for prophylactic vaccination with c ombined bvvyjojltk-vzsoazr-todsqpgaf (DTP) vaccine Need for pneumococcal vaccination Need for prophylactic vaccination agains t streptococcus pneumoniae (pneumococcus) Screening cholesterol level Screening for lipoid disorders Trigger finger (acquired) documented in this encounter Care Teams Submarine Diver Relationship Specialty Start Date End Date Shiraz Simeon PA-C PCP - General 11/02/11 03/[address] [place] [address] documented as of this encounter
--- OUTSIDE RECORDS SUMMARY | 2022-05-31 14:45 | XMS_ITS | Encounter Summary ---
:1945 Author Organization [facility] Address [address] [place] [address] Care Team Providers Name Role Phone Shiraz Simeon PA-C Primary Care Provider Reason for Visit Reason Comments IV,THERAPY Encounter Details Date Type Department Care Team Description 03/01/2012 Hospital Encounter [facility] Oncology Treatment R ooms [address] [place], [place] [address] Social History Tobacco Use Types Packs/Day Years Used Date Smoking Tobacco: Never Assessed Sex Assigned at Date Recorded Not on file documented as of this encounter Last Filed Vital Signs Vital Sign Reading Time Taken Comments Blood Pressure 104/48 03/01/2012 12:45 PM CDT Pulse 84 03/01/2012 12:45 PM CDT Temperature - - Respiratory Rate [...] ZOLOFT) Take 1 tablet by 30 tablet 201110/30/2012 50 MG tabletIndications: mouth daily (every [...] this encounter Miscellaneous Notes Medication History - Maureen, MD Cameron - 03/01/2012 11:59 PM CDT INPATIENT MEDS Encounter Date: 03/01/12 0.9% sodium chloride flush 500 mL Start Date:03/01/12, End Date:03/01/12, Frequency:ONCE Taken Dose Action User Route Site Recorded Comment Reason 03/01/12 1405 500 mL Infused Michelle Lira RN Intravenous - 03/01/12 1405 - - 03/01/12 1259 350 mL Started Michelle Lira RN Intravenous - 03/01/12 1407 - - prochlorperazine (COMPAZINE) tablet 10 mg Start Date:03/01/12, End Date:03/01/12, Frequency:ONCE Taken Dose Action User Route Site Recorded Comment Reason 03/01/12 1406 10 mg Removed Michelle Lira RN Oral - 03/01/12 1406 - - 03/01/12 1256 10 mg Given Michelle Lira RN Oral - 03/01/12 1259 - - iron sucrose (VENOFER) 200 mg in 0.9% sodium chloride 100 mL infusion Start Date:03/01/12, End Date:03/01/12, Frequency:ONCE Taken Dose Action User Route Site Recorded Comment Reason 03/01/12 1401 200 mg Infused Michelle Lira RN Intravenous - 03/01/12 1406 - - 03/01/12 1259 200 mg Started Michelle Lira RN Intravenous - 03/01/12 1259 - - 0.9% sodium chloride latex free syringe 20 mL Start Date:03/01/12, End Date:03/01/12, Frequency:PRN Taken Dose Action User Route Site Recorded Comment Reason 03/01/12 1250 10 mL Given Michelle Lira RN Intravenous - 03/01/12 1300 - - documented in this encounter Plan of Treatment Not on filedocumented as of this encounter Visit Diagnoses Diagnosis Iron deficiency anemia Iron deficiency anemia, unspecified documented in this encounter Care Teams Bi Developer Relationship Specialty Start Date End Date Shiraz Simeon PA-C PCP - General 11/02/11 03/01/16 [address] [place], [place] [address] documented as of this encounter
--- OUTSIDE RECORDS SUMMARY | 2022-05-31 14:45 | XMS_ITS | Encounter Summary ---
:1945 Author Organization [employer] Address [address] [place] [address] Care Team Providers Name Role Phone Shiraz Simeon PA-C Primary Care Provider Encounter Details Date Type Department Care Team Description 04/24/2012 Lab Visit [facility] NSAID-induced gastric ulcer [address] [place], [place] [id number] Social History Tobacco Use Types Packs/Day Years Used Date Smoking Tobacco: Never Assessed Sex Assigned at Date Recorded Not on file documented as of this encounter Plan of Treatment Not on filedocumented as of this encounter Procedures Procedure Name Priority Date/Time Associated Diagnosis Comme nts GASTRIN Routine 04/24/2012 8:25 AM NSAID-induced Results for this CDT gastric ulcer procedure are in the results section. CREATININE / GFR Routine 04/24/2012 8:25 AM NSAID-induced Resu lts for this CDT gastric ulcer procedure are in the results section. SALICYLATE Routine 04/24/2012 8:25 AM NSAID-induced Results for this CDT gastric ulcer procedure are in the results section. documented in this encounter Results Creatinine / GFR (04/24/2012 8:25 AM CDT) P athologist Signature Creatinine 0.7 0.4 - 1.3 HP CONVERSION Serum mg/dL Est GFR >60 >60 HP CONVERSION Am mL/min/1.7 3m2 Est GFR Non-Afr >60 >60 HP CONVERSION Am mL/min/1.7 3m2 Comment: Normal>60, moderate decrease 30 - 59, se andrzej decrease 15 - 29, renal failure <15 mL/min/1.73 m2 NOTE: ??Choose the eGFR result above eliseo ropriate for the race of the patient. Specimen Anatomical Collection Method Collection Time Receive d Time (Source) Location / / Volume Laterality 04/24/2012 8:25 AM 2 CDT 10:07 AM CDT Narrative HP CONVERSION - 04/24/2012 10:44 AM CDT Performed at [facility], [address] [place] [address] Tyler Clemente MD LAB_1 Performing Organization Address City/[facility] Code Phon e Number HP CONVERSION (ABNORMAL) Salicylate (04/24/2012 8:25 AM CDT) Patholo gist Method Time Signature Date Last Dose 04/18/2012 HP CONVERSION Roney Time Last Dose 0700 HP CONVERSION Roney Salicylate 8 (L) 15 - 30 HP CONVERSION mg/dL Specimen Anatomical Collection Method Collection Time Receive d Time (Source) Location / / Volume Laterality 04/24/2012 8:25 AM 2 CDT 12:14 PM CDT Tyler Clemente MD LAB_1 Performing Organization Address City/[facility] Phon e Number HP CONVERSION (ABNORMAL) GASTRIN (04/24/2012 8:25 AM CDT) P athologist Signature Gastrin 156 (H) 0 - 100 HP CONVERSION pg/mL Specimen Anatomical Collection Method Collection Time Receive d Time (Source) Location / / Volume Laterality 04/24/2012 8:25 AM 2 6:26 CDT PM CDT Narrative HP CONVERSION - 04/26/2012 3:27 PM CDT Performed at [facility] [address] [place] [address] Tyler Clemente MD LAB_1 Performing Organization Address City/[facility] Code Phon e Number HP CONVERSION documented in this encounter Visit Diagnoses Diagnosis NSAID-induced gastric ulcer Gastric ulcer, unspecified as acute or c hronic, without mention of hemorrhage, perforation, or obstruction documented in this encounter Care Teams Pharmaceutical Sales Relationship Specialty Start Date End Date Shiraz Simeon PA-C PCP - General 11/02/11 03/01/16 [address] [place], [place] [id number] documented as of this encounter
--- OUTSIDE RECORDS SUMMARY | 2022-05-31 14:45 | XMS_ITS | Encounter Summary ---
:1945 Author Organization [facility] Address [address] [place] [address] Care Team Providers Name Role Phone Shiraz Simeon PA-C Primary Care Provider Encounter Details Date Type Department Care Team Description 12/30/2012 [facility] [address] [place] [address] [phone] (Wo rk) Social History Tobacco Use Types Packs/Day Years Used Date Smoking Tobacco: Never Assessed Sex Assigned at Date Recorded Not on file documented as of this encounter Plan of Treatment Not on filedocumented as of this encounter Visit Diagnoses Not on filedocumented in this encounter Care Teams Electro Winning Operator Relationship Specialty Start Date End Date Shiraz Simeon PA-C PCP - General 11/02/11 03/01/16 [address] [place] [address] documented as of this encounter
--- OUTSIDE RECORDS SUMMARY | 2022-05-31 14:45 | XMS_ITS | Encounter Summary ---
:1945 Author Organization [employer] Address [address] [place] [address] Care Team Providers Name Role Phone Shiraz Simeon PA-C Primary Care Provider Reason for Visit Reason Comments Symptoms Encounter Details Date Type Department Care Team Description 05/02/2012 [address] [facility] [address] Clemente MD Symptoms Gastroenterology [address] [place] [address] [place], [place] [address] [phone] Social History Tobacco Use Types Packs/Day Years Used Date Smoking Tobacco: Never Assessed Sex Assigned at Date Recorded Not on file documented as of this encounter Nursing Notes Annette Camacho RN - 05/02/2012 2:19 PM CDT Pt called. reviewed information with her. She will contact her PMD. Tyler Clemente MD - 05/02/2012 12:12 PM CDT NSAID medications such as aspirin, Excedrin, ibuprofen/Motrin, naproxen/Naprosyn/Aleve would contribute to ongoing gastric ulceration. 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 Jovany Carreno RN - 05/02/2012 11:45 AM CDT pt calling in, pt stated she is taking Tramadol for back pain and the medication is not working, informed pt the med was proscribed by ZAHIDA Simeon and would need to fallow-up with that PA, pt then stated Chyna has stated pt was to not take certain medications and wanted to ask Chyna for a different pain medication documented in this encounter Plan of Treatment Not on filedocumented as of this encounter Visit Diagnoses Not on filedocumented in this encounter Care Teams Welding Machine Operator Friction Relationship Specialty Start Date End Date Shiraz Simeon PA-C PCP - General 11/02/11 03/01/[address] [place] [id number] documented as of this encounter
--- OUTSIDE RECORDS SUMMARY | 2022-05-31 14:45 | XMS_ITS | Encounter Summary ---
:1945 Author Organization [facility] Address [address] [place] [address] Care Team Providers Name Role Phone Shiraz Simeon PA-C Primary Care Provider Encounter Details Date Type Department Care Team Description 10/30/2012 Lab Visit [facility] Screening cholesterol level; [address] Iron deficiency anemia; [place] [address] Chronic back pain [phone] Social History Tobacco Use Types Packs/Day Years Used Date Smoking Tobacco: Never Assessed Sex Assigned at Date Recorded Not on file documented as of this encounter Plan of Treatment Not on filedocumented as of this encounter Procedures Procedure Name Priority Date/Time Associated Diagnosis Comme nts IRON BINDING CAPACITY Routine 10/30/2012 9:56 AM Iron deficien cy Results for this (INCL IRON) CDT anemia procedure are i n the results section. LIPID PANEL AND Routine 10/30/2012 9:56 AM Screening Result s for this DIRECT LDL(IF NEEDED) CDT cholesterol level p rocedure are in the results section. CREATININE / GFR Routine 10/30/2012 9:56 AM Chronic back pain Results for this CDT procedure are i n the results section. COMPLETE BLOOD Routine 10/30/2012 9:56 AM Iron deficiency Resu lts for this COUNT-W/DIFF CDT anemia procedure are i n the results section. DIFFERENTIAL Routine 10/30/2012 9:56 AM Results f or this CDT procedure are i n the results section. FERRITIN Routine 10/30/2012 9:56 AM Iron deficiency Result s for this CDT anemia procedure are i n the results section. ALT (SGPT) Routine 10/30/2012 9:56 AM Chronic back pain Resu lts for this CDT procedure are i n the results section. BUN Routine 10/30/2012 9:56 AM Chronic back pain Resu lts for this CDT procedure are i n the results section. documented in this encounter Results (ABNORMAL) Differential (10/30/2012 9:56 AM CDT) [facility] gist Method Time Signature Absolute 5.9 1.8 - 8.0 HP CONVERSION Neutrophils k/cmm Absolute 1.6 1.1 - 4.0 HP CONVERSION Lymphocytes k/cmm Absolute 0.9 (H) 0.2 - 0.8 HP CONVERSION Monocytes k/cmm Absolute 0.1 0.0 - 0.5 HP CONVERSION Eosinophils k/cmm Absolute 0.0 0.0 - 0.2 HP CONVERSION Basophils k/cmm Specimen Anatomical Collection Method Collection Time Receive d Time (Source) Location / / Volume Laterality 10/30/2012 9:56 AM 3 9:56 CDT AM CDT Narrative HP CONVERSION - 10/30/2012 9:59 AM CDT Performed at [facility], [address] [place] [address] Shiraz Simeon PA-C LAB_1 Performing Organization Address City/[facility] Phon e Number HP CONVERSION BUN (10/30/2012 9:56 AM CDT) athologist Signature Blood Urea 24 5 - 26 HP CONVERSION Nitrogen mg/dL Specimen Anatomical Collection Method Collection Time Receive d Time (Source) Location / / Volume Laterality 10/30/2012 9:56 AM 3 CDT 12:20 PM CDT Narrative HP CONVERSION - 10/30/2012 12:55 PM CDT Performed at [facility], [address] [place] [address] Shiraz Simeon PA-C LAB_1 Performing Organization Address City/[facility] Phon e Number HP CONVERSION Creatinine / GFR (10/30/2012 9:56 AM CDT) athologist Signature Creatinine 0.7 0.4 - 1.3 [...] Time (Source) Location / / Volume Laterality 10/30/2012 9:56 AM 3 CDT 12:20 PM CDT Narrative HP CONVERSION - 10/30/2012 12:55 PM CDT Performed at [facility], [address] [place] [address] Shiraz Simeon PA-C LAB_1 Performing Organization Address [facility] Phon e Number HP CONVERSION ALT (SGPT) (10/30/2012 9:56 AM CDT) [facility] Method Time Signature Alanine 19 4 - 55 HP CONVERSION Aminotransferase U/L Specimen Anatomical Collection Method Collection Time Receive d Time (Source) Location / / Volume Laterality 10/30/2012 9:56 AM 3 CDT 12:20 PM CDT Narrative HP CONVERSION - 10/30/2012 12:55 PM CDT Performed at [facility], [address] [place] [place] [address] Shiraz Simeon PA-C LAB_1 Performing Organization Address [facility] Phon e Number HP CONVERSION (ABNORMAL) IRON BINDING CAPACITY (INCL IRON) (10/30/2012 9:56 AM CDT) [facility] Method Time Signature Iron, Serum 29 (L) 50 - 165 HP CONVERSION ug/dL Iron Binding 349 250 - 450 HP CONVERSION Capacity ug/dL Iron Saturation 8 (L) 20 - 55 % HP CONVERSION Iron TIBC see below HP CONVERSION Interpretation Comment: Low iron, normal TIBC, possible iron deficiency. Specimen Anatomical Collection Method Collection Time Receive d Time (Source) Location / / Volume Laterality 10/30/2012 9:56 AM 3 1:39 CDT PM CDT Shiraz Simeon PA-C LAB_1 Performing Organization Address [facility] Phon e Number HP CONVERSION (ABNORMAL) Ferritin (10/30/2012 9:56 AM CDT) P athologist Signature Ferritin Serum 7 (L) 10 - 291 HP CONVERSION ng/mL Specimen Anatomical Collection Method Collection Time Receive d Time (Source) Location / / Volume Laterality 10/30/2012 9:56 AM 3 1:39 CDT PM CDT Shiraz Simeon PA-C LAB_1 Performing Organization Address [facility] Phon e Number HP CONVERSION (ABNORMAL) Hemogram/Plts/Diff (10/30/2012 9:56 AM CDT) [facility] Method Time Signature White Blood Cell 8.6 3.8 - HP CONVERSION Count 11.0 k/cmm Red Blood Cell 3.85 3.70 - HP CONVERSION Count 5.20 m/cmm Hemoglobin 11.0 (L) 11.8 - HP CONVERSION 15.5 g/dL Hematocrit 35.3 35.0 - HP CONVERSION 46.0 % Mean Corpuscular 91.7 80.0 - HP CONVERSION Volume 100.0 fL RDW 13.1 11.0 - HP CONVERSION 15.0 % Platelet Count 293 140 - 450 HP CONVERSION k/cmm Specimen Anatomical Collection Method Collection Time Receive d Time (Source) Location / / Volume Laterality 10/30/2012 9:56 AM 3 9:56 CDT AM CDT Narrative HP CONVERSION - 10/30/2012 9:59 AM CDT Performed at [facility], [address] [place] [address] Shiraz Simeon PA-C LAB_1 Performing Organization Address City/[facility] Phon e Number HP CONVERSION Lipid Panel and Direct LDL(If Needed) (10/30/2012 9:56 AM CDT) [facility] Method Time Signature Cholesterol 167 0 - 200 HP CONVERSION mg/dL Triglycerides 92 0 - 149 HP CONVERSION mg/dL HDL Cholesterol 57 >39 mg/dL HP CONVERSION Cholesterol/HDL 2.9 HP CONVERSION Ratio Screen LDL Calculated 92 19 - 130 HP CONVERSION mg/dL Length Of Fast 1.0 HP CONVERSION Comment: ok per Specimen Anatomical Collection Method Collection Time Receive d Time (Source) Location / / Volume Laterality 10/30/2012 9:56 AM 3 CDT 12:20 PM CDT Narrative HP CONVERSION - 10/30/2012 12:55 PM CDT Performed at [facility], [address] [facility], [place] [address] Shiraz Simeon PA-C LAB_1 Performing Organization Address City/State/ZIP Code Phon e Number HP CONVERSION documented in this encounter Visit Diagnoses Diagnosis Screening cholesterol level Screening for lipoid disorders Iron deficiency anemia Iron deficiency anemia, unspecified Chronic back pain Backache, unspecified documented in this encounter Care Teams Yarn Conditioner Relationship Specialty Start Date End Date Shiraz Simeon PA-C PCP - General 11/02/11 03/01/16 [address] [place] [address] documented as of this encounter
--- OUTSIDE RECORDS SUMMARY | 2022-05-31 14:45 | XMS_ITS | Encounter Summary ---
:1945 Author Organization [facility] Address [address] [place] [address] Care Team Providers Name Role Phone Shiraz Simeon PA-C Primary Care Provider Reason for Visit Reason Comments IV,THERAPY Encounter Details Date Type Department Care Team Description 03/08/[address] [facility] Treatment R ooms [address] [place], [place] [address] Social History Tobacco Use Types Packs/Day Years Used Date Smoking Tobacco: Never Assessed Sex Assigned at Date Recorded Not on file documented as of this encounter Last Filed Vital Signs Vital Sign Reading Time Taken Comments Blood Pressure 87/50 03/08/2012 1:02 PM CDT Pulse 84 03/08/2012 1:02 PM CDT Temperature - - Respiratory Rate [...] Medication History - Maureen, MD Cameron - 03/08/2012 11:59 PM CDT INPATIENT MEDS Encounter Date: 03/08/12 prochlorperazine (COMPAZINE) tablet 10 mg Start Date:03/08/12, End Date:03/08/12, Frequency:ONCE Taken Dose Action User Route Site Recorded Comment Reason 03/08/12 1316 10 mg Given Tasha Hernandez RN Oral - 03/08/12 1317 - - 0.9% sodium chloride flush 500 mL Start Date:03/08/12, End Date:03/08/12, Frequency:ONCE Taken Dose Action User Route Site Recorded Comment Reason 03/08/12 1434 500 mL Infused Fauzia Salomon RN Intravenous - 03/08/12 1434 - - 03/08/12 1323 500 mL Started Tasah Hernandez RN Intravenous - 03/08/12 1323 - - iron sucrose (VENOFER) 200 mg in 0.9% sodium chloride 100 mL infusion Start Date:03/08/12, End Date:03/08/12, Frequency:ONCE Taken Dose Action User Route Site Recorded Comment Reason 03/08/12 1434 200 mg Infused Fauzia Salomon RN Intravenous - 03/08/12 1434 - - 03/08/12 1323 200 mg Started Tasha Hernandez RN Intravenous - 03/08/12 1323 - - documented in this encounter Plan of Treatment Not on filedocumented as of this encounter Visit Diagnoses Diagnosis Iron deficiency anemia Iron deficiency anemia, unspecified documented in this encounter Care Teams Corn Grinder Relationship Specialty Start Date End Date Shiraz Simeon PA-C PCP - General 11/02/11 03/01/16 [address] [place] [address] documented as of this encounter
--- OUTSIDE RECORDS SUMMARY | 2022-05-31 14:45 | XMS_ITS | Encounter Summary ---
:1945 Author Organization [facility] Address [address] [place] [address] Care Team Providers Name Role Phone Shiraz Simeon PA-C Primary Care Provider Reason for Visit Reason Comments IV,THERAPY Encounter Details Date Type Department Care Team Description 12/30/2012 [facility] Lydia Owens M D Iron deficiency Encounter [facility] [address] [place] anemia ( [address]) Treatment Rooms [place], [place] [address] [facility] [address] [place], [place] [phone] [address] (Work) [phone] Social History Tobacco Use Types Packs/Day Years Used Date Smoking Tobacco: Never Assessed Sex Assigned at Date Recorded Not on file documented as of this encounter Last Filed Vital Signs Vital Sign Reading Time Taken Comments Blood Pressure 95/51 12/30/2012 2:52 PM CDT Pulse 75 12/30/2012 2:52 PM CDT Temperature - - Respiratory Rate [...] Medication History - Cameron Reddy MD - 12/30/2012 11:59 PM CDT INPATIENT MEDS Encounter Date: 12/30/12 iron sucrose (VENOFER) 200 mg in 0.9% sodium chloride 100 mL infusion Start Date:12/30/12, End Date:12/30/12, Frequency:ONCE Taken Dose Action User Route Site Recorded Comment Reason 12/30/12 1615 200 mg Infused Mame Gonzalez RN Intravenous - 12/30/12 1618 - - 12/30/12 1506 200 mg Started Mame Gonzalez RN Intravenous - 12/30/12 1506 - - prochlorperazine (COMPAZINE) tablet 10 mg Start Date:12/30/12, End Date:12/30/12, Frequency:ONCE Taken Dose Action User Route Site Recorded Comment Reason 12/30/12 1506 10 mg Given Mame Gonzalez RN Oral - 12/30/12 1506 - - 0.9% sodium chloride flush 500 mL Start Date:12/30/12, End Date:12/30/12, Frequency:ONCE Taken Dose Action User Route Site Recorded Comment Reason 12/30/12 1620 500 mL Infused Mame Gonzalez RN Intravenous - 12/30/12 1634 - - 12/30/12 1505 500 mL Started Mame Gonzalez RN Intravenous - 12/30/12 1505 - - documented in this encounter Plan of Treatment Not on filedocumented as of this encounter Visit Diagnoses Diagnosis Iron deficiency anemia - Primary Iron deficiency anemia, unspecified documented in this encounter Care Teams Local Combination Truck Driver Relationship Specialty Start Date End Date Shiraz Simeon PA-C PCP - General 11/02/11 03/01/16 [address] [place] [address] documented as of this encounter
--- OUTSIDE RECORDS SUMMARY | 2022-05-31 14:45 | XMS_ITS | Encounter Summary ---
:1945 Author Organization [facility] Address [address], [place] [address] Care Team Providers Name Role Phone Shiraz Simeon PA-C Primary Care Provider Reason for Visit Reason Comments Follow-up Encounter Details Date Type Department Care Team Description 03/08/2012 Initial [facility] Tyler Clemente, MATTIEA ID-induced 6500 gastric ulcer Gastroenterology [address] (Primary Dx) [address] [place] [id number] Social History Tobacco Use Types Packs/Day Years Used Date Smoking Tobacco: Never Assessed Sex Assigned at Date Recorded Not on file documented as of this encounter Last Filed Vital Signs Vital Sign Reading Time Taken Comments Blood Pressure 98/58 03/08/2012 3:35 PM CDT Pulse - - Temperature - - Respiratory Rate - - Oxygen Saturation - - Inhaled Oxygen Concentration - - Weight 44.4 kg (97 lb 12.8 oz) 03/08/2012 3:35 PM CDT Height - - Body Mass Index 17.89 01/04/2012 11:01 AM CDT documented in this encounter Progress Notes Tyler Clemente MD - 03/08/2012 6:12 PM CDT Progress Notes signed by Tyler Clemente MD at 03/11/12 8967 Author: Tyler Clemente MD Service: (none) Author Type: Physician Filed: 03/11/12 1637 Note Time: 03/08/121811 Status: Signed Slot Router: Tyler Clemente MD (Physician) NAME: RONDA CORBIN MR#: [id number] CSN: [id number] AUTHENTICATING CLINICIAN: Tyler Clemente MD CONFIRM #: [id number] LOC: 3533 CLINIC PROGRESS NOTE DATE OF VISIT: 03/08/2012 : 1945 SUBJECTIVE: Ronda Corbin is seen in the GI clinic today 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 She has undergone 2 endoscopies, in October and December of this year, initially to evaluate an iron-deficiency anemia after she had no source found during a colonoscopy in October. Her hemoglobin was as low as 4.7 at one point. The ulce rations have been attributed to chronic NSAID use. There has been no evidence of Helicobacter pylori. She has been taking the omeprazole 20 mg b.i.d. and has had no further nonsteroidals for several months. She reports she is feeling significantly better compared with October. She is not having any abdominal pain or early satiety and there has been no nausea or vomiting. She reports her appetite is good and she is eating a fair amount. She has had lifelong difficulty gaining weight. She is using Ensure once or twice daily and is having regular bowel movements. She does note she has gained roughly 3 pounds. She will at times burp up some sour material and yesterday both she and her became sick after eating some corn beef hash. She is receiving iron infusions as well. PAST MEDICAL HISTORY: Includes kidney stones, restless leg syndrome, anxiety disorder, chronic back pain. PAST SURGICAL HISTORY: Includes YUNG/BSO. No gastric surgery. HABITS: She is a smoker. ALLERGIES: Medication intolerances include ferrous sulfate, which caused GI upset. OBJECTIVE: VITAL SIGNS: Height 5 feet, 3 inches. Weight 97.8 pounds. Blood pressure 98/58 using a standard cuff. She is alert and oriented x3 and is in no apparent distress. There is no scleral icterus. LABS: On February 28 hemoglobin was 10.5, which compared with 10.9 on February 13, and ferritin at that point was 8. Upper GI from January 22 was reviewed again today. 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 This has also resulted in iron-deficiency anemia. Clinically she has improved with regard to her GI symptoms. Evaluation thus far has not shown convincing evidence of a malignancy. She does not describe much in the way of symptoms currently to suggest outlet obstruction and she has not had any recent overt GI bleeding. PLAN: 1. Continue omeprazole 20 mg b.i.d. 2. She will continue to avoid all nonsteroidals. 3. She will continue with her iron supplementation. 4. We will plan an EGD in 4 to 5 weeks' time to follow up on the ulceration, including the ulceration of the pylorus, and determine if she would benefit from balloon dilatation at that point. If the ulcer persists, we did discuss potentially obtaining a gastrin level while coming off the proton pump inhibitor for few days or we could consider a CT scan in the future as well. Greater than 50% of our 20 minute visit was spent reviewing these issues and answering questions. She agreed with the plan. CC: SHIRAZ SIMEON PA-C [address] [place] [address] DAO:MEDQ C: CONFIRM #: [id number] documented in this encounter Plan of Treatment Not on filedocumented as of this encounter Visit Diagnoses Diagnosis NSAID-induced gastric ulcer - Primary Gastric ulcer, unspecified as acute or c hronic, without mention of hemorrhage, perforation, or obstruction documented in this encounter Care Teams Treating Plant Supervisor Relationship Specialty Start Date End Date Shiraz Simeon PA-C PCP - General 11/02/11 03/01/[address] [place] [address] documented as of this encounter
--- OUTSIDE RECORDS SUMMARY | 2022-05-31 14:45 | XMS_ITS | Encounter Summary ---
:1945 Author Organization [facility] Address [address] [place] [address] Care Team Providers Name Role Phone Shiraz Simeon PA-C Primary Care Provider Encounter Details Date Type Department Care Team Description 02/29/2012 Lab Visit [facility] Iron deficiency anemia [address] [place], [place] [id number] Social History Tobacco Use Types Packs/Day Years Used Date Smoking Tobacco: Never Assessed Sex Assigned at Date Recorded Not on file documented as of this encounter Miscellaneous Notes Miscellaneous - 08/11/2016 3:11 PM CSTNotes Recorded by Lydia Monk RN on 02/29/2012 at 1:19 PMPatient aware of results. Note complete.------Notes Recorded by Anna Coreas MD on 02/29/2012 at 1:05 PMGood stable Hgb. No other new orders.With iron replacement I would expect her to hold hgb well.So ok to check labs at appt on 04/04. Pt to call if any unusual paleness, weakness fatigue that are reminiscent of anemia.Thanks.------Notes Recorded by Lydia Monk RN on 02/29/2012 at 11:43 AMPatient scheduled for IV iron on 03/01, 03/06 and 03/08. Next cc appt 04/04. Please advise if orders needed. Thanks. SER FIRST documented in this encounter Plan of Treatment Not on filedocumented as of this encounter Procedures Procedure Name Priority Date/Time Associated Diagnosis Comme nts HEMOGLOBIN, BLOOD STAT 02/29/2012 9:36 AM Iron deficiency R esults for this CDT anemia procedure are i n the results section. documented in this encounter Results (ABNORMAL) Hemoglobin, Blood (02/29/2012 9:36 AM CDT) athologist Signature Hemoglobin 10.5 (L) 11.8 - 15.5 HP CONVERSION g/dL Specimen Anatomical Collection Method Collection Time Receive d Time (Source) Location / / Volume Laterality 02/29/2012 9:36 AM 2 9:36 CDT AM CDT Narrative HP CONVERSION - 02/29/2012 9:41 AM CDT Performed at [facility], [address] [place] [address], [place] [address] Transcriptions 08/11/2016 3:11 PM CSTNotes Recorded by Lydia Monk RN on 02/29/2012 at 1:19 PMPatient aware of results. Note complete.------Notes Recorded by Anna Coreas MD on 02/29/2012 at 1:05 PMGood stable Hgb. No other new orders. With iron replacement I would expect her to hold hgb well.So ok to check labs at appt on 04/04. Pt to call if any unusual paleness, weakness fatigue that are reminiscent of anemia.Thanks.------Notes Recorded by Lydia Monk RN on 02/29/2012 at 11:43 AM Patient scheduled for IV iron on 03/01, and 03/08. Next cc appt 04/04. Please advise if orders needed. Thanks. Anna Coreas MD LAB_1 Performing Organization Address City/State/ZIP Code Phon e Number HP CONVERSION documented in this encounter Visit Diagnoses Diagnosis Iron deficiency anemia Iron deficiency anemia, unspecified documented in this encounter Care Teams Running Rigger Relationship Specialty Start Date End Date Shiraz Simeon PA-C PCP - General 11/02/11 03/01/[address] [place] [address] [place] [address] documented as of this encounter
--- OUTSIDE RECORDS SUMMARY | 2022-05-31 14:45 | XMS_ITS | Encounter Summary ---
:1945 Author Organization [facility] Address [address] [place] [address] Care Team Providers Name Role Phone Shiraz Simeon PA-C Primary Care Provider Encounter Details Date Type Department Care Team Description 04/25/[address] [place] [address] [place] [id number] [facility] [place] [address] Social History Tobacco Use Types Packs/Day Years Used Date Smoking Tobacco: Never Assessed Sex Assigned at Date Recorded Not on file documented as of this encounter Plan of Treatment Not on filedocumented as of this encounter Visit Diagnoses Not on filedocumented in this encounter Care Teams Provisioning Specialist Relationship Specialty Start Date End Date Shiraz Simeon PA-C PCP - General 11/02/11 03/01/[address] [place] [address] documented as of this encounter
--- OUTSIDE RECORDS SUMMARY | 2022-05-31 14:45 | XMS_ITS | Encounter Summary ---
:1945 Author Organization [employer] Address [address] [place] [address] Care Team Providers Name Role Phone Shiraz Simeon PA-C Primary Care Provider Encounter Details Date Type Department Care Team Description 04/01/2012 Lab Visit [facility] Iron deficiency anemia [address] [place], [place] [id number] Social History Tobacco Use Types Packs/Day Years Used Date Smoking Tobacco: Never Assessed Sex Assigned at Date Recorded Not on file documented as of this encounter Miscellaneous Notes Miscellaneous - 08/11/2016 2:18 PM CSTNotes Recorded by Maty Grijalva RN on 04/01/2012 at 10:58 AMSpoke with pt, and she stated she was pleased with results. Informed her that her ferritin level wasstill pending, pt okay with waiting with this. Pt did mention she is fighting a cold, having some diarrhea and a lot of gas. Asked pt if she was interested in doing a stool sample or being evaluated, and pt declined. Pt stated she is just keeping it calm and will wait it out.Informed her to call back if the diarrhea or any symptoms worsen, and to definitely call if she develops fever/chills. Pt verbalized understanding. Note complete.------Notes Recorded by Anna Coreas MD on 04/01/2012 at 9:19 AMS/P Iron sucrose 1200mg infusion in 6 divided doses between. 02/22 to 9.Hgb much better and await ferritin.Pt to keep appt later this week. Thanks. PHONE ORDER SUPERVISOR documented in this encounter Plan of Treatment Not on filedocumented as of this encounter Procedures Procedure Name Priority Date/Time Associated Comments Diagnosis COMPLETE BLOOD STAT 04/01/2012 9:03 AM Iron deficiency Resu lts for this COUNT-W/DIFF CDT anemia procedure are i n the results section. DIFFERENTIAL STAT 04/01/2012 9:03 AM Results f or this CDT procedure are i n the results section. FERRITIN STAT 04/01/2012 9:03 AM Iron deficiency Result s for this CDT anemia procedure are i n the results section. documented in this encounter Results (ABNORMAL) Differential (04/01/2012 9:03 AM CDT) [facility] Method Time Signature Absolute 10.3 (H) 1.8 - 8.0 HP CONVERSION Neutrophils k/cmm Absolute 1.4 1.1 - 4.0 HP CONVERSION Lymphocytes k/cmm Absolute 1.1 (H) 0.2 - 0.8 HP CONVERSION Monocytes k/cmm Absolute 0.0 0.0 - 0.5 HP CONVERSION Eosinophils k/cmm Absolute 0.0 0.0 - 0.2 HP CONVERSION Basophils k/cmm Platelet Normal HP CONVERSION Estimate Anisocytosis Marked (A) HP CONVERSION Specimen Anatomical Collection Method Collection Time Receive d Time (Source) Location / / Volume Laterality 04/01/2012 9:03 AM 2 1:23 CDT PM CDT Anna Coreas MD LAB_1 Performing Organization Address City/[facility]/ZIP Code Phon e Number HP CONVERSION Ferritin (04/01/2012 9:03 AM CDT) athologist Signature Ferritin Serum 202 10 - 291 HP CONVERSION ng/mL Specimen Anatomical Collection Method Collection Time Receive d Time (Source) Location / / Volume Laterality 04/01/2012 9:03 AM 2 CDT 12:41 PM CDT Anna Coreas MD LAB_1 Performing Organization Address City/[facility]/ZIP Code Phon e Number HP CONVERSION (ABNORMAL) Hemogram/Plts/Diff (04/01/2012 9:03 AM CDT) [facility] Method Time Signature White Blood Cell 12.4 (H) 3.8 - HP CONVERSION Count 11.0 k/cmm Red Blood Cell 3.95 3.70 - HP CONVERSION Count 5.20 m/cmm Hemoglobin 11.2 (L) 11.8 - HP CONVERSION 15.5 g/dL Hematocrit 35.3 35.0 - HP CONVERSION 46.0 % Mean Corpuscular 89.4 80.0 - HP CONVERSION Volume 100.0 fL RDW 21.9 (H) 11.0 - HP CONVERSION 15.0 % Platelet Count 292 140 - 450 HP CONVERSION k/cmm Specimen Anatomical Collection Method Collection Time Receive d Time (Source) Location / / Volume Laterality 04/01/2012 9:03 AM 2 9:03 CDT AM CDT Narrative HP CONVERSION - 04/01/2012 9:11 AM CDT Performed at [facility], [address] [place], [place] [address] [address] Transcriptions 08/11/2016 2:18 PM CSTNotes Recorded by Maty Grijalva RN on 04/01/2012 at 10:58 AMSpoke with pt, and she stated she was pleased with results. Informed her that her ferritin level was still pending, pt okay with waiting with this. Pt did mention she is fighting a cold, having some diarrhea and a lot of gas. Asked pt if she was interested in doing a stool sample or being evaluated, an d pt declined. Pt stated she is just ke eping it calm and will wait it out. Informed her to call back if the diarrhea or any symptoms worsen, and to definitely call if she develops fever/chills. Pt verbalized understanding. Note complete.------ Notes Recorded by Anna Coreas MD on at 9:19 AMS/P Iron sucrose 1200mg infusion in 6 divided doses between. 02/22 to 03/08.Hgb much better and await ferritin.Pt to keep appt later this week.Thanks. Anna Coreas MD LAB_1 Performing Organization Address City/State/ZIP Code Phon e Number HP CONVERSION documented in this encounter Visit Diagnoses Diagnosis Iron deficiency anemia Iron deficiency anemia, unspecified documented in this encounter Care Teams Adjunct Political Science Instructor Relationship Specialty Start Date End Date Shiraz Simeon PA-C PCP - General 11/02/11 03/01/16 [facility] [place] [id number] documented as of this encounter
--- OUTSIDE RECORDS SUMMARY | 2022-05-31 14:46 | XMS_ITS | Encounter Summary ---
:1945 Author Organization [facility] Address [address] [place] [address] Care Team Providers Name Role Phone Shiraz Simeon PA-C Primary Care Provider Reason for Visit Reason Comments ANEMIA Encounter Details Date Type Department Care Team Description 02/20/2012 Notes/[facility] [id number] [place] [phone] (Wo rk) Social History Tobacco Use Types Packs/Day Years Used Date Smoking Tobacco: Never Assessed Sex Assigned at Date Recorded Not on file documented as of this encounter Progress Notes Anna orellana MD - 02/20/2012 9:27 PM CDT Ms. Corbin with h/o of PUD. She has had poor tolerance to oral iron replacement and did not take supplement. She had notable GI upset. She did not call to inform hematology of intolerance. However, follow up Hgb showed: Lab Results Component Value Date/Time Hemoglobin 10.9* 02/14/2012 09:18 Hemoglobin 6.8* 02/05/2012 12:14 Hemoglobin 9.6* 01/02/2012 11:29 When Hgb fell to 6.8, pt transfused. Pt reported no signs of GI bleeding. She does wish to proceed with IV iron replacement. The potenital side effects of IV iron do include though are not limited to nausea, vomiting, diarrhea or constipation, phlebitis, abdominal cramping and/or diarrhea, joint and muscle pain, rash, and allergic side effects with rash, shortness of breath, wheezing, fall in blood pressure, and swelling. Fo rtunately, these side effects are less common with the newer preparations of iron, and the options of various supportive medications. Pt would like to start this week and will arrange for First infusion this or Sun, ie 02/21 opt 02/22. Will give trial of Iron Sucrose 200mg IV x 6 total doses. Will have [facility] contact pt for appt times. She will keep all previously planned appts and labs. documented in this encounter Plan of Treatment Not on filedocumented as of this encounter Visit Diagnoses Not on filedocumented in this encounter Care Teams Hair Spinning Machine Operator Relationship Specialty Start Date End Date Shiraz Simeon PA-C PCP - General 11/02/11 03/01/16 [address] [place] [address] documented as of this encounter
--- OUTSIDE RECORDS SUMMARY | 2022-05-31 14:46 | XMS_ITS | Encounter Summary ---
:1945 Author Organization [employer] Address [address] [place] [address] Care Team Providers Name Role Phone Shiraz Simeon PA-C Primary Care Provider Encounter Details Date Type Department Care Team Description 02/14/2012 Lab Visit [facility] Iron deficiency anemia [address] [place], [place] [id number] Social History Tobacco Use Types Packs/Day Years Used Date Smoking Tobacco: Never Assessed Sex Assigned at Date Recorded Not on file documented as of this encounter Miscellaneous Notes Miscellaneous - 08/11/2016 3:38 PM CSTNotes Recorded by Anna Coreas MD on 02/20/2012 at 9:28 PMNoted. Spoke with pt and she is feeling well.No tolerance to oral iron.Will proceed with IV iron.The potenital side effects of IV iron do include though are not limited to nausea, vomiting, diarrhea or constipation, phlebitis, abdominal cramping and/or diarrhea, joint and muscle pain, rash, and allergic side effects with rash, shortness of breath, wheezing, fall in blood pressure, and swelling. Fortunately, these side effects are less common with the newer preparations of iron, and the options of various supportive medications.Pt would like to start this week and will arrange for First infusion this or Sun.Will give trial of Iron Sucrose 200mg IV x 6 total doses. Will have [facility] contact pt for appt times.------Notes Recorded by Lydia Monk RN on 02/15/2012 at 10:51 AMPatient called back. She is pleased with results. Patient denies blood in stool (dark or bright red). She would like to try the IV iron replacement. She remembers discussing it at a past appt but doesn't remember the details. Please call patient at [phone], okay to leave detailed message. ------Notes Recorded by Lydia Monk RN on 02/15/2012 at 9:18 AMLeft detailed message for patient to call back.------Notes Recorded by Anna Coreas MD on 02/14/2012 at 5:23 PMMay inform pt of improved Hgb. After transfusion. Pt with h/o gastric ulcers.Confirm with pt no melena or bright red blood per rectum.If pt unable to take oral iron due to intolerance, ?does she want to try IV iron replacement.This would be the next recommended step. If so, I can give her a call some time to discuss this option and hopefully, this will help keep her Hgb at a safe level.Keep 02/28 lab appt.Thanks.------Notes Recorded by Lydia Monk RN on 02/14/2012 at 11:36 AMPatient had 2 units pRBCs on 02/05/12. Per result note dated 02/05/12 patient has been noncompliant withoral iron. Next lab 02/28 and cc appt 04/04. Please advise. Thanks. CIRCULATING Miscellaneous - 08/11/2016 3:38 PM CSTNotes Recorded by Anna Coreas MD on 02/20/2012 at 9:28 PMNoted. Spoke with pt and she is feeling well.No tolerance to oral iron.Will proceed with IV iron.The potenital side effects of IV iron do include though are not limited to nausea, vomiting, diarrhea or constipation, phlebitis, abdominal cramping and/or diarrhea, joint and muscle pain, rash, and allergic side effects with rash, shortness of breath, wheezing, fall in blood pressure, and swelling. Fortunately, these side effects are less common with the newer preparations of iron, and the options of various supportive medications.Pt would like to start this week and will arrange for First infusion this Th or Sun.Will give trial of Iron Sucrose 200mg IV x 6 total doses. Will have [facility] contact pt for appt times.------Notes Recorded by Lydia Monk RN on 02/15/2012 at 10:51 AMPatient called back. She is pleased with results. Patient denies blood in stool (dark or bright red). She would like to try the IV iron replacement. She remembers discussing it at a past appt but doesn't remember the details. Please call patient at [phone], okay to leave detailed message. ------Notes Recorded by Lydia Monk RN on 02/15/2012 at 9:18 AMLeft detailed message for patient to call back.------Notes Recorded by Anna Coreas MD on 02/14/2012 at 5:23 PMMay inform pt of improved Hgb. After transfusion. Pt with h/o gastric ulcers.Confirm with pt no melena or bright red blood per rectum.If pt unable to take oral iron due to intolerance, ?does she want to try IV iron replacement.This would be the next recommended step. If so, I can give her a call some time to discuss this option and hopefully, this will help keep her Hgb at a safe level.Keep 02/28 lab appt.Thanks.------Notes Recorded by Lydia Monk RN on 02/14/2012 at 11:36 AMPatient had 2 units pRBCs on 02/05/12. Per result note dated 02/05/12 patient has been noncompliant withoral iron. Next lab 02/28 and cc appt 04/04. Please advise. Thanks. CIRCULATING documented in this encounter Plan of Treatment Not on filedocumented as of this encounter Procedures Procedure Name Priority Date/Time Associated Comments Diagnosis COMPLETE BLOOD STAT 02/14/2012 9:18 AM Iron deficiency Resu lts for this COUNT-W/DIFF CDT anemia procedure are i n the results section. DIFFERENTIAL STAT 02/14/2012 9:18 AM Results f or this CDT procedure are i n the results section. FERRITIN STAT 02/14/2012 9:18 AM Iron deficiency Result s for this CDT anemia procedure are i n the results section. documented in this encounter Results (ABNORMAL) Differential (02/14/2012 9:18 AM CDT) Patholo gist Method Time Signature Absolute 9.0 (H) 1.8 - 8.0 HP CONVERSION Neutrophils k/cmm Absolute 1.6 1.1 - 4.0 HP CONVERSION Lymphocytes k/cmm Absolute 1.2 (H) 0.2 - 0.8 HP CONVERSION Monocytes k/cmm Absolute 0.1 0.0 - 0.5 HP CONVERSION Eosinophils k/cmm Absolute 0.1 0.0 - 0.2 HP CONVERSION Basophils k/cmm Specimen Anatomical Collection Method Collection Time Receive d Time (Source) Location / / Volume Laterality 02/14/2012 9:18 AM 2 9:18 CDT AM CDT Narrative HP CONVERSION - 02/14/2012 10:42 AM CDT Performed at [facility], [address] [place] [id number] Transcriptions 08/11/2016 3:38 PM CSTNotes Recorded by Anna Coreas MD on 02/20/2012 at 9:28 PMNoted. Spoke with pt and she is feeling well.No tolerance to oral iron.Will proceed with IV iron. The potenital side effects of IV iron do include though are not limited to nausea, vomiting, diarrhea or constipation, phlebitis, abdominal cramping and/or diarrhea, joint and muscle pain, rash, and all ergic side effects with rash, shortness of breath, wheezing, fall in blood pressure, and swelling. Fortunately, these side effects are less common with the newer preparations of iron, and the options of various supportive medications. Pt would like to start this week and cynthia castelan arrange for First infusion this or Sun.Will give trial of Iron Sucrose 200mg IV x 6 total doses. Will have [facility] contact pt for appt times.------ Notes Recorded by Lydia Monk RN on 01/30 at 10:51 AMPatient called back. She is pleased with results. Patient denies blood in stool (dark or bright red). She would like to try the IV iron repla cement. She remembers discussing it at a past appt but doesn't remember the details. Please call patient at [phone], okay to leave detailed message.------ Notes Recorded by Lydia Monk RN on 01/30 at 9:18 AMLeft detailed message for patient to call back.------Notes Recorded by Anna Coreas MD on 02/14/2012 at 5:23 PMMay inform pt of improved Hgb. After transfusion. Pt with h/o gastric ulcers. Confirm with pt no melena or bright red blood per rectum.If pt unable to take oral iron due to intolerance, ?does she want to try IV iron replacement. This would be the next recommended step. If so, I can give her a call some time to discuss this option and hopefully, this will help keep her Hgb at a safe level.Keep 02/28 lab appt.Thanks.------ Notes Recorded by Lydia Monk RN on 01/30 at 11:36 AMPatient had 2 units pRBCs on 02/05/12. Per result note dated 02/05/12 patient has been noncompliant with oral iron. Next lab 02/28 and cc appt 04/04. Please advise. Thanks. Anna Coreas MD LAB_1 Performing Organization Address City/[facility] Code Phon e Number HP CONVERSION (ABNORMAL) Ferritin (02/14/2012 9:18 AM CDT) athologist Signature Ferritin Serum 8 (L) 10 - 291 HP CONVERSION ng/mL Specimen Anatomical Collection Method Collection Time Receive d Time (Source) Location / / Volume Laterality 02/14/2012 9:18 AM 2 1:23 CDT PM CDT Anna Coreas MD LAB_1 Performing Organization Address [facility] Phon e Number HP CONVERSION (ABNORMAL) Hemogram/Plts/Diff (02/14/2012 9:18 AM CDT) Patholo gist Method Time Signature White Blood Cell 12.1 (H) 3.8 - HP CONVERSION Count 11.0 k/cmm Red Blood Cell 4.45 3.70 - HP CONVERSION Count 5.20 m/cmm Hemoglobin 10.9 (L) 11.8 - HP CONVERSION 15.5 g/dL Hematocrit 35.5 35.0 - HP CONVERSION 46.0 % Mean Corpuscular 79.8 (L) 80.0 - HP CONVERSION Volume 100.0 fL RDW 19.3 (H) 11.0 - HP CONVERSION 15.0 % Platelet Count 294 140 - 450 HP CONVERSION k/cmm Specimen Anatomical Collection Method Collection Time Receive d Time (Source) Location / / Volume Laterality 02/14/2012 9:18 AM 2 9:18 CDT AM CDT Narrative HP CONVERSION - 02/14/2012 10:42 AM CDT Performed at [facility], [address] [place] [id number] Transcriptions 08/11/2016 3:38 PM CSTNotes Recorded by Anna Coreas MD on 02/20/2012 at 9:28 PMNoted. Spoke with pt and she is feeling well.No tolerance to oral iron.Will proceed with IV iron. The potenital side effects of IV iron do include though are not limited to nausea, vomiting, diarrhea or constipation, phlebitis, abdominal cramping and/or diarrhea, joint and muscle pain, rash, and all ergic side effects with rash, shortness of breath, wheezing, fall in blood pressure, and swelling. Fortunately, these side effects are less common with the newer preparations of iron, and the options of various supportive medications. Pt would like to start this week and cynthia castelan arrange for First infusion this or Sun.Will give trial of Iron Sucrose 200mg IV x 6 total doses. Will have [facility] contact pt for appt times.------ Notes Recorded by Lydia Monk RN on 01/30 at 10:51 AMPatient called back. She is pleased with results. Patient denies blood in stool (dark or bright red). She would like to try the IV iron repla cement. She remembers discussing it at a past appt but doesn't remember the details. Please call patient at [phone], okay to leave detailed message.------ Notes Recorded by Lydia Monk RN on 01/30 at 9:18 AMLeft detailed message for patient to call back.------Notes Recorded by Anna Coreas MD on 02/14/2012 at 5:23 PMMay inform pt of improved Hgb. After transfusion. Pt with h/o gastric ulcers. Confirm with pt no melena or bright red blood per rectum.If pt unable to take oral iron due to intolerance, ?does she want to try IV iron replacement. This would be the next recommended step. If so, I can give her a call some time to discuss this option and hopefully, this will help keep her Hgb at a safe level.Keep 02/28 lab appt.Thanks.------ Notes Recorded by Lydia Monk RN on 01/30 at 11:36 AMPatient had 2 units pRBCs on 02/05/12. Per result note dated 02/05/12 patient has been noncompliant with oral iron. Next lab 02/28 and cc appt 04/04. Please advise. Thanks. Anna Coreas MD LAB_1 Performing Organization Address City/State/ZIP Code Phon e Number HP CONVERSION documented in this encounter Visit Diagnoses Diagnosis Iron deficiency anemia Iron deficiency anemia, unspecified documented in this encounter Care Teams Source Water Protection Specialist Relationship Specialty Start Date End Date Shiraz Simeon PA-C PCP - General 11/02/11 03/01/16 [address] [place] [address] documented as of this encounter
--- OUTSIDE RECORDS SUMMARY | 2022-05-31 14:46 | XMS_ITS | Encounter Summary ---
:1945 Author Organization [employer] Address [address] [place] [address] Care Team Providers Name Role Phone Shiraz Simeon PA-C Primary Care Provider Reason for Visit Reason Comments GAS, EXCESSIVE Encounter Details Date Type Department Care Team Description 01/01/2012 Telephone [facility] Medicin e Shiraz Simeon PA-C GAS, EXCESSIVE [address] [place] [address] [place] [address] [phone] (Wo rk) Social History Tobacco Use Types Packs/Day Years Used Date Smoking Tobacco: Never Assessed Sex Assigned at Date Recorded Not on file documented as of this encounter Nursing Notes Lydia Chacko LPN - 01/01/2012 9:25 AM CDT Pt calling, she has not been feeling good for 3 days. Has felt very gassy, and no appetite. She has hx of an ulcer and takes Prilosec for that. She does not feel that is working very well for her. Apptwas made for tomorrow with Jeri as Shiraz is not in this week. She will go to if she feels worse today. ET Loreta Parsnos - 01/01/2012 9:13 AM CDT She feels awful, achy, gassy etc. Needs advice. [phone] documented in this encounter Plan of Treatment Not on filedocumented as of this encounter Visit Diagnoses Not on filedocumented in this encounter Care Teams Labor Relations Representative Relationship Specialty Start Date End Date Shiraz Simeon PA-C PCP - General 11/02/11 03/01/16 [address] [place] [address] documented as of this encounter
--- OUTSIDE RECORDS SUMMARY | 2022-05-31 14:46 | XMS_ITS | Encounter Summary ---
:1945 Author Organization [employer] Address [address] [place] [address] Care Team Providers Name Role Phone Shiraz Simeon PA-C Primary Care Provider Encounter Details Date Type Department Care Team Description 02/05/2012 Hospital Encounter [facility] Zaki Tucker, Center/ Observation MD [address] [id number] [phone] Social History Tobacco Use Types Packs/Day Years Used Date Smoking Tobacco: Never Assessed Sex Assigned at Date Recorded Not on file documented as of this encounter Last Filed Vital Signs Vital Sign Reading Time Taken Comments Blood Pressure 119/71 02/05/2012 7:44 Simultaneous jaspal ing. PM CDT User may not hav e seen previous data. Pulse 79 02/05/2012 7:44 Simultaneous jaspal ing. PM CDT User may not hav e seen previous data. Temperature 37 ??C (98.6 ??F) 02/05/2012 7:44 Simultaneous f iling. PM CDT User may not hav e seen previous data. Respiratory Rate 16 02/05/2012 7:44 PM CDT Oxygen Saturation 96% 02/05/2012 7:44 PM CDT Inhaled Oxygen - - Concentration Weight - - Height - - Body [...] after meal). gabapentin (AKA Take 2-3 capsules by 540 capsule 4 2 10/30/2012 NEURONTIN) 100 MG mouth 2 TIMES DAILY capsuleIndications: AC PRN for Other. Restless legs syndrome (RLS) sertraline (AKA ZOLOFT) Take 1 tablet by 30 tablet 12 201110/30/2012 50 MG mouth daily (every tabletIndications: 24 hours). Take 1/2 Generalized anxiety tab daily x 6 days, disorder (HRC) then 1 tab daily thereafter. traMADol (AKA ULTRAM) Take 1 tablet by 120 tablet 12 11/16/19 12 10/30/2012 50 MG mouth every 6 hours tabletIndications: as needed for Pain. Chronic back pain omeprazole (PRILOSEC) Take 1 capsule by 60 capsule 11 012 10/30/2012 20 MG capsule mouth 2 times daily (before meals). documented as of this encounter Progress Notes Mame Santiago RN - 02/05/2012 9:50 PM CDT DISCHARGE O: Patient safely discharged to home. D: Patient is oriented x 4. Pt up independently . Discharge criteria met. Vaccines addressed prior to discharge. A: Discharge instructions and medication reconciliation reviewed and given to patient and family. Belongings checklist reviewed with patient and belongs sent. are plan issues addressed and education record updated. R: Patient verbalizes understanding of discharge instructions. Patient discharged by: ambulation with staff. Tracy Leigh RN - 02/05/2012 4:39 PM CDT ADMIT O: Admitted patient via ambulated per self from home to bed # [id number]/[id number]-12. D: Patient is oriented x 4; family present. A: Discussed plan of care. Blood drawn and ordered Oriented to room. Call light in reach. Bed alarm:off R: Patient status:. Will monitor.Tracy Conklin RN 4:39 PM 02/05/2012 documented in this encounter Miscellaneous Notes Medication History - Cameron Reddy MD - 02/05/2012 9:50 PM CDT INPATIENT MEDS Encounter Date: 02/05/12 0.9% sodium chloride bolus 250 mL Start Date:02/05/12, End Date:02/06/12, Frequency:ONCE *No Administrations Recorded 0.9% sodium chloride latex free syringe 10 mL Start Date:02/05/12, End Date:02/06/12, Frequency:PRN Taken Dose Action User Route Site Recorded Comment Reason 02/05/12 1712 10 mL Given Tracy Conklin RN Intravenous - 02/05/12 1712 - - meperidine (DEMEROL) injection 25 mg Start Date:02/05/12, End Date:02/06/12, Frequency:EVERY 4 HOURS PRN *No Administrations Recorded diphenhydrAMINE (BENADRYL) injection 25 mg Start Date:02/05/12, End Date:02/06/12, Frequency:EVERY 6 HOURS PRN *No Administrations Recorded 0.9% sodium chloride bolus 250 mL Start Date:02/05/12, End Date:02/05/12, Frequency:ONCE Taken Dose Action User Route Site Recorded Comment Reason 02/05/12 1712 250 mL Given Tracy Conklin RN Intravenous - 02/05/12 1713 - - 0.9% sodium chloride latex free syringe 10 mL Start Date:02/05/12, End Date:02/05/12, Frequency:PRN Taken Dose Action User Route Site Recorded Comment Reason 02/05/12 1545 10 mL Given Pravin Mcelroy RN Intravenous - 02/05/12 1550 - - documented in this encounter Plan of Treatment Not on filedocumented as of this encounter Procedures Procedure Name Priority Date/Time Associated Comments Diagnosis TYPE AND SCREEN STAT 02/05/2012 3:42 PM Result s for this CDT procedure are i n the results section. PREP RBC LEUKOREDUCED STAT 02/05/2012 3:42 PM Results for this CDT procedure are i n the results section. documented in this encounter Results TYPE AND SCREEN (02/05/2012 3:42 PM CDT) P athologist Signature Blood Type A POS HP CONVERSION Antibody Screen NEG HP CONVERSION Specimen Anatomical Collection Method Collection Time Receive d Time (Source) Location / / Volume Laterality 02/05/2012 3:42 PM 2 3:47 CDT PM CDT Francisca Tucker MD PN BLOOD BANK ORDERS Performing Organization Address City/[facility] Phon e Number HP CONVERSION PREP RBC LEUKOREDUCED (02/05/2012 3:42 PM CDT) Patholo gist Method Time Signature BBproduct RBC, LR HP CONVERSION BBunitnumber [id number] HP CONVERSION BBdispense transfused HP CONVERSION BBcoding ISBT HP CONVERSION BBproduct RBC, LR HP CONVERSION BBunitnumber [id number] HP CONVERSION BBdispense transfused HP CONVERSION BBcoding ISBT HP CONVERSION Comment: RBC, LR ? [id number] ?transfused ?? 02/05/12 ??17:17 RBC, LR ? [id number] ?transfused ?? 02/05/12 ??19:37 Specimen (Source) Anatomical Collection Method Collection Time Re ceived Time Location / / Volume Laterality 02/05/2012 3:42 PM CDT Francisca Tucker MD PN BLOOD BANK ORDERS Performing Organization Address [facility] Phon e Number HP CONVERSION documented in this encounter Visit Diagnoses Not on filedocumented in this encounter Care Teams Treadle Cut Off Saw Operator Relationship Specialty Start Date End Date Shiraz Simeon PA-C PCP - General 11/02/11 03/01/16 [address] [place] [address] documented as of this encounter
--- OUTSIDE RECORDS SUMMARY | 2022-05-31 14:46 | XMS_ITS | Encounter Summary ---
:1945 Author Organization [facility] Address [address] [address] Care Team Providers Name Role Phone Shiraz Simeon PA-C Primary Care Provider Reason for Visit Reason Comments Infusion Encounter Details Date Type Department Care Team Description 02/26/2012 [facility] Isela Yates, Iron def iciency Encounter [facility] [address] [place] [id number] Social History Tobacco Use Types Packs/Day Years Used Date Smoking Tobacco: Never Assessed Sex Assigned at Date Recorded Not on file documented as of this encounter Last Filed Vital Signs Vital Sign Reading Time Taken Comments Blood Pressure 89/44 02/26/2012 1:26 PM CDT Pulse 78 02/26/2012 1:26 PM CDT Temperature - - Respiratory Rate [...] Medication History - Integration, MD Cameron - 02/26/2012 11:59 PM CDT INPATIENT MEDS Encounter Date: 02/26/12 iron sucrose (VENOFER) 200 mg in 0.9% sodium chloride 100 mL infusion Start Date:02/26/12, End Date:02/26/12, Frequency:ONCE Taken Dose Action User Route Site Recorded Comment Reason 02/26/12 1335 200 mg Infused Ara Neal RN Intravenous - 02/26/12 1435 - - 02/26/12 1323 200 mg Started Radha Acosta RN Intravenous - 02/26/12 1323 - - prochlorperazine (COMPAZINE) tablet 10 mg Start Date:02/26/12, End Date:02/26/12, Frequency:ONCE Taken Dose Action User Route Site Recorded Comment Reason 02/26/12 1323 10 mg Given Radha Acosta RN Oral - 02/26/12 1323 - - 0.9% sodium chloride flush 500 mL Start Date:02/26/12, End Date:02/26/12, Frequency:ONCE Taken Dose Action User Route Site Recorded Comment Reason 02/26/12 1435 500 mL Infused Ara Neal RN Intravenous - 02/26/12 1435 - - 02/26/12 1322 500 mL Started Radha Acosta RN Intravenous - 02/26/12 1322 - - 0.9% sodium chloride latex free syringe 20 mL Start Date:02/26/12, End Date:02/26/12, Frequency:PRN Taken Dose Action User Route Site Recorded Comment Reason 02/26/12 1318 10 mL Given Radha Acosta RN Intravenous - 02/26/12 1319 - - documented in this encounter Plan of Treatment Not on filedocumented as of this encounter Visit Diagnoses Diagnosis Iron deficiency anemia Iron deficiency anemia, unspecified documented in this encounter Care Teams Bariatric Nurse Relationship Specialty Start Date End Date Shiraz Simeon PA-C PCP - General 11/02/11 03/01/16 [address] [place] [address] documented as of this encounter
--- OUTSIDE RECORDS SUMMARY | 2022-05-31 14:46 | XMS_ITS | Encounter Summary ---
:1945 Author Organization [facility] Address [address] [place] [address] Care Team Providers Name Role Phone Shiraz Simeon PA-C Primary Care Provider Reason for Visit Reason Comments ANEMIA Infusion Encounter Details Date Type Department Care Team Description 02/28/2012 Hospital Encounter [facility] ane mauricio Oncology [address] [place], [place] [id number] Social History Tobacco Use Types Packs/Day Years Used Date Smoking Tobacco: Never Assessed Sex Assigned at Date Recorded Not on file documented as of this encounter Last Filed Vital Signs Vital Sign Reading Time Taken Comments Blood Pressure 90/46 02/28/2012 1:19 PM CDT Pulse 81 02/28/2012 1:19 PM CDT Temperature - - Respiratory Rate [...] Take 1 tablet by 60 tablet 2 02/20/2010/30/2012 COMPAZINE) 10 MG mouth every 6 tabletIndications: [...] Medication History - Integration, MD Cameron - 02/28/2012 11:59 PM CDT INPATIENT MEDS Encounter Date: 02/28/12 0.9% sodium chloride latex free syringe 20 mL Start Date:02/28/12, End Date:02/28/12, Frequency:PRN Taken Dose Action User Route Site Recorded Comment Reason 02/28/12 1335 10 mL Given Fauzia Chung RN Intravenous - 02/28/12 1335 - - 0.9% sodium chloride flush 500 mL Start Date:02/28/12, End Date:02/28/12, Frequency:ONCE Taken Dose Action User Route Site Recorded Comment Reason 02/28/12 1439 500 mL Infused Fauzia Chung RN Intravenous - 02/28/12 1439 - - 02/28/12 1336 500 mL Started Fauzia Chung RN Intravenous - 02/28/12 1337 - - prochlorperazine (COMPAZINE) tablet 10 mg Start Date:02/28/12, End Date:02/28/12, Frequency:ONCE Taken Dose Action User Route Site Recorded Comment Reason 02/28/12 1336 10 mg Given Fauzia Chung RN Oral - 02/28/12 1336 - - iron sucrose (VENOFER) 200 mg in 0.9% sodium chloride 100 mL infusion Start Date:02/28/12, End Date:02/28/12, Frequency:ONCE Taken Dose Action User Route Site Recorded Comment Reason 02/28/12 1439 200 mg Infused Fauzia Chung RN Intravenous - 02/28/12 1439 - - 02/28/12 1336 200 mg Started Fauzia Chung RN Intravenous - 02/28/12 1337 - - documented in this encounter Plan of Treatment Not on filedocumented as of this encounter Visit Diagnoses Diagnosis Iron deficiency anemia Iron deficiency anemia, unspecified documented in this encounter Care Teams Tax Economist Relationship Specialty Start Date End Date Shiraz Simeon PA-C PCP - General 11/02/11 03/01/16 [address] [place], [place] [address] documented as of this encounter
--- OUTSIDE RECORDS SUMMARY | 2022-05-31 14:46 | XMS_ITS | Encounter Summary ---
:1945 Author Organization [employer] Address [address] [place] [address] Care Team Providers Name Role Phone Shiraz Simeon PA-C Primary Care Provider Encounter Details Date Type Department Care Team Description 02/05/2012 Lab Visit [facility] Iron deficiency anemia [address] [place], [place] [id number] Social History Tobacco Use Types Packs/Day Years Used Date Smoking Tobacco: Never Assessed Sex Assigned at Date Recorded Not on file documented as of this encounter Miscellaneous Notes Miscellaneous - 08/11/2016 3:55 PM CSTNotes Recorded by Alison Merchant on 02/13/2012 at 3:02 PM8-14/Pt has been scheduled for cbc, ferritin on 02-13. Note is complete.------Notes Recorded by Lorna Linder on 02/09/2012 at 10:22 AML for pt to call and schedule lab appt.------Notes Recorded by Lydia Monk RN on 02/09/2012 at 8:28 AMLeft detailed message regarding plan and that someone from [facility] will be calling to schedule a lab appt next week.------Notes Recorded by Anna Coreas MD on 02/08/2012 at 11:24 PMNoted pt transfusion and noncompliance with oral iron due to noncompliance, and intolerance.Will then need to discuss how pt wants to proceed with future iron replacement after lab results.[facility]: Please arrange for f/u lab next week on Sun or for f/u of CBc, Ferritin.May contact pt with appt time.Orders in EPIC.Thanks------Notes Recorded by Anna Coreas MD on 02/08/2012 at 10:33 PMNoted pt transfusion and noncompliance with oral iron due to noncompliance, and intolerance.Will then need to discuss how pt wants to proceed with future iron replacement after lab results.[facility]: Please arrange for f/u lab next week on Sun or for f/u of CBc, Ferritin.May contact pt with appt time.Orders in EPIC.Thanks------Notes Recorded by Maty Grijalva RN on 02/05/2012 at 2:14 PMPt will go to observation unit for blood transfusion, pt contacted and will come in at [id number] for transfusion. Orders faxed, glazier supervisor notified.Dr. Coreas: pt states she has not been taking her iron pills because she has not been tolerating them.Pt states when she takes them she takes them with food, but she has not taken them for a while, states she rarely takes them. Please advise any other recommendations. Thanks.------Notes Recorded by Maty Grijalva RN on 02/05/2012 at 12:55 PMPt has no written orders in chart. I did get a hold of infusion center, and pt received 2 units of leuko-reduced PRBCs in October, no pre- meds given. Orders at my desk (Lydia's desk) to sign. Thanks.------Notes Recorded by Francisca Tucker MD on 02/05/2012 at 12:40 PMPt will need to be setup for PRBC transfusion. Please call pt to arrange. Please also have pt's old orders pulled for me to review to complete her new orders. Prior to outpt transfusion, please call ptto see if she having any chest pain, near syncope. If she is then she will need to go to ER for evaluation and transfusion. Thanks------Notes Recorded by Maty Grijalva RN on 02/05/2012 at 12:30 PMPt was consulted by Dr. Coreas on 01/03 for iron deficiency anemia. Pt getting monthly labs checked. Pt is on ferrous gluconate 325 mg daily. Last transfusion was on 11/06/11. Please advise. F ANESTHETIST documented in this encounter Plan of Treatment Not on filedocumented as of this encounter Procedures Procedure Name Priority Date/Time Associated Diagnosis Comme nts HEMOGLOBIN, BLOOD STAT 02/05/2012 12:14 PM Iron deficiency Results for this CDT anemia procedure are i n the results section. documented in this encounter Results (ABNORMAL) Hemoglobin, Blood (02/05/2012 12:14 PM CDT) athologist Signature Hemoglobin 6.8 (CL) 11.8 - 15.5 HP CONVERSION g/dL Comment: Critical hgb result of _6.8 called to an d read back by _jul, 6CC. ??02/05/2012 ??12:55 bw Specimen Anatomical Collection Method Collection Time Receive d Time (Source) Location / / Volume Laterality 02/05/2012 12:14 02/05/2012 PM CDT 12:14 PM CDT Narrative HP CONVERSION - 02/05/2012 5:25 PM CDT Performed at [facility], [address] [place] [id number] Transcriptions 08/11/2016 3:55 PM CSTNotes Recorded by Alison Merchant on 02/13/2012 at 3:02 PM8/Pt has been scheduled for cbc, ferritin on 02-13. Note is complete.------Notes Recorded by Lorna Linder on 02/09/2012 at 10:22 AM LVM for pt to call and schedule lab appt .------Notes Recorded by Lydia Monk RN on 02/09/2012 at 8:28 AMLeft detailed message regarding plan and that someone from [facility] will be calling to schedule a lab appt next week.------ Notes Recorded by Anna Coreas MD on at 11:24 PMNoted pt transfusion and noncompliance with oral iron due to noncompliance, and intolerance.Will then need to discuss how pt wants to proceed with future iron replacement after lab results. [facility]: Please arrange for f/u lab ne xt week on Wed or Th for f/u of CBc, Ferritin.May contact pt with appt time.Orders in EPIC.Thanks------Notes Recorded by Anna Coreas MD on 02/08/2012 at 10:33 PM Noted pt transfusion and noncompliance w ith oral iron due to noncompliance, and intolerance.Will then need to discuss how pt wants to proceed with future iron replacement after lab results. [facility]: Please arrange for f/u lab ne xt week on Sun or for f/u of CBc, Ferritin.May contact pt with appt time.Orders in EPIC.Thanks------Notes Recorded by Maty Grijalva RN on 02/05/2012 at 2:14 PM Pt will go to observation unit for blood transfusion, pt contacted and will come in at approximately 1500 for transfusion. Orders faxed, glazier supervisor notified. Dr. Coreas: pt states she has not been babs ing her iron pills because she has not been tolerating them. Pt states when she takes them she takes them with food, but she has not taken them for a while, state s she rarely takes them. Please advise a ny other recommendations. Thanks.------Notes Recorded by Maty Grijalva RN on 02/05/2012 at 12:55 PMPt has no written orders in chart. I did get a hold of infusion center, and pt received 2 units of le uko-reduced PRBCs in October, no pre-meds gi bobo. Orders at my desk (Lydia's desk) to sign. Thanks.------Notes Recorded by Francisca Tucker MD on 02/05/2012 at 12:40 PM Pt will need to be setup for PRBC transf usion. Please call pt to arrange. Please also have pt's old orders pulled for me to review to complete her new orders. Prior to outpt transfusion, please call pt to see if she having any chest pain, deven r syncope. If she is then she will need to go to ER for evaluation and transfusion. Thanks------Notes Recorded by Maty Grijalva RN on 02/05/2012 at 12:30 PM Pt was consulted by Dr. Coreas on 01/03 for iron deficiency anemia. Pt getting monthly labs checked. Pt is on ferrous gluconate 325 mg daily. Last transfusion was on 11/06/11. Please advise. Anna Coreas MD LAB_1 Performing Organization Address City/State/ZIP Code Phon e Number HP CONVERSION documented in this encounter Visit Diagnoses Diagnosis Iron deficiency anemia Iron deficiency anemia, unspecified documented in this encounter Care Teams Hospitality Specialist Relationship Specialty Start Date End Date Shiraz Simeon PA-C PCP - General 11/02/11 03/01/16 [address] [place], [place] [address] documented as of this encounter
--- OUTSIDE RECORDS SUMMARY | 2022-05-31 14:46 | XMS_ITS | Encounter Summary ---
:1945 Author Organization [employer] Address [address] [place] [address] Care Team Providers Name Role Phone Shiraz Simeon PA-C Primary Care Provider Reason for Visit Reason Comments RESULTS, TEST Encounter Details Date Type Department Care Team Description 11/17/2011 Telephone [facility] Shiraz Simeon PA-C RESULTS, TEST [address] [place] [address] [place] [address] [phone] (Wo rk) Social History Tobacco Use Types Packs/Day Years Used Date Smoking Tobacco: Never Assessed Sex Assigned at Date Recorded Not on file documented as of this encounter Nursing Notes Peggy Diallo MA - 11/17/2011 4:36 PM CDT Pt informed. Shiraz Simeon PA-C - 11/17/2011 4:33 PM CDT Please let her know that her hemoglobin is now 8.5, which is an improvement from 7.7 a week ago. Miya Kramer RN - 11/17/2011 3:43 PM CDT Please call pt with abnormal hgb Shruti Corbin (Self) [phone] (H) Lab Results Component Value Date/Time Hemoglobin 8.5* 11/16/2011 14:07 Marline Ramirez - 11/17/2011 3:34 PM CDT Pt would like to know what her Hemoglobin results were from Yesterday. documented in this encounter Plan of Treatment Not on filedocumented as of this encounter Visit Diagnoses Not on filedocumented in this encounter Care Teams Fence Builder Relationship Specialty Start Date End Date Shiraz Simeon PA-C PCP - General 11/02/11 03/01/16 [address] [place], [place] [id number] documented as of this encounter
--- OUTSIDE RECORDS SUMMARY | 2022-05-31 14:46 | XMS_ITS | Encounter Summary ---
:1945 Author Organization [employer] Address [address] [place] [address] Care Team Providers Name Role Phone Shiraz Simeon PA-C Primary Care Provider Reason for Visit Reason Comments Appt. Needed Encounter Details Date Type Department Care Team Description 01/12/2012 [facility] [address] odessa Clemente MD Appt. Needed Endoscopy [address] [place] [address] [place], [place] [address] [phone] Social History Tobacco Use Types Packs/Day Years Used Date Smoking Tobacco: Never Assessed Sex Assigned at Date Recorded Not on file documented as of this encounter Nursing Notes Alex López RN - 01/17/2012 11:01 AM CDT contacted patient, UGI scheduled. Tyler Clemente MD - 01/12/2012 6:04 PM CDT Patient letter going out regarding getting an UGI. Ordered. documented in this encounter Plan of Treatment Not on filedocumented as of this encounter Procedures Procedure Name Priority Date/Time Associated Diagnosis Comme nts FL UGI ROUTINE Routine 01/23/2012 9:58 AM Gastric ulcer Result s for this CDT procedure are i n the results section . documented in this encounter Results FL UGI Routine (01/23/2012 9:58 AM CDT) Anatomical Region Laterality Modality Abdomen Other Specimen (Source) Anatomical Location Collection Method / Collectio n Time Received Time / Laterality Volume Impressions 01/23/2012 10:14 AM CDT IMPRESSION: 1. Marked irregularity with lobulation o f the gastric mucosa particularly in the distal body and antr um correlating with known inflammatory change and ulcer disease. ? ?There is a fairly large outpouching inferiorly at the distal ant rum likely correlating with an known large gastric ulcer. ??No defin itive fistula formation is identified. ??Overall relatively slow ga stric emptying subjectively. 2. Normal appearance of the esophagus. ? ?Visualized portions the proximal small bowel appear grossly norm al as well. ?? 3. Patient had a large amount of fluid a nd food within the stomach prior to the exam. ??Patient did vomit e xtensively prior to the beginning of the exam as well. ??She had been n.p.o. indicating gastric outlet obstruction. Narrative 01/23/2012 10:14 AM CDT CLINICAL HISTORY: Known gastric ulcers. ??Recent endoscopy demonstrated a 3 cm ulcer near the regio n of the antrum and severe pyloric stenosis. ??7 mm duodenal ulcer was noted as well with scarring of the stomach. Additional line ar ulcers were seen in the body of the stomach measuring up to 1.5 cm. ?? TECHNIQUE: Patient was initially given e ffervescent crystals. ?? Patient then proceeded to vomit fairly e xtensively with a large amount of fluid and particulate matter. ??Patient was given the option to reschedule the study given her vomiti ng but she elected to try to continue. ??No additional effervescent c rystals were given. ?? FINDINGS: The esophagus is a normal in a ppearance. ??Esophagus is normal in caliber with normal esophageal motility. ??No evidence of esophageal ulcers or mass lesions. ??No fixed strictures identified. ?? No gastroesophageal reflux or hiatal her brian identified. Assessment of the stomach is somewhat li mited due to particulate material identified within the stomach. ??There is mucosal irregularity with a lobular appearance p articularly towards the distal body and antrum correlating with known inflammatory changes and ulcerations. ??There is a large suki ection of contrast projecting inferiorly at the gastric antrum which l ikely relates to large known ulcer in this area. ??Contrast eventuall y does pass into the duodenum however. ??Contrast was slow to pass thr ough the antrum into the duodenum so assessment in this area time s a somewhat limited. ?? However, only 1 clear pyloric channel wa s appreciated. ??No definitive fistula is seen. Vascular calcifications are present as w ell. ??There is scoliosis of the lumbar spine convex to the right. Procedure Note Luanne Short MD - 12/18/2015Formatt ing of this note might be different from the original. CLINICAL HISTORY: Known gastric ulcers. Recent endoscopy demonstrated a 3 cm ulcer near the regio n of the antrum and severe pyloric stenosis. 7 mm duodenal ulcer wa s noted as well with scarring of the stomach. Additional line ar ulcers were seen in the body of the stomach measuring up to 1.5 cm. TECHNIQUE: Patient was initially given e ffervescent crystals. Patient then proceeded to vomit fairly e xtensively with a large amount of fluid and particulate matter. Patient was given the option to reschedule the study given her vomiti ng but she elected to try to continue. No additional effervescent cry stals were given. FINDINGS: The esophagus is a normal in a ppearance. Esophagus is normal in caliber with normal esophageal motility. No evidence of esophageal ulcers or mass lesions. No fi xed strictures identified. No gastroesophageal reflux or hiatal her brian identified. Assessment of the stomach is somewhat li mited due to particulate material identified within the stomach. There is mucosal irregularity with a lobular appearance p articularly towards the distal body and antrum correlating with known inflammatory changes and ulcerations. There is a large collec tion of contrast projecting inferiorly at the gastric antrum which l ikely relates to large known ulcer in this area. Contrast eventually does pass into the duodenum however. Contrast was slow to pass throu gh the antrum into the duodenum so assessment in this area time s a somewhat limited. However, only 1 clear pyloric channel wa s appreciated. No definitive fistula is seen. Vascular calcifications are present as w ell. There is scoliosis of the lumbar spine convex to the right. IMPRESSION IMPRESSION: 1. Marked irregularity with lobulation o f the gastric mucosa particularly in the distal body and antr um correlating with known inflammatory change and ulcer disease. T here is a fairly large outpouching inferiorly at the distal ant rum likely correlating with an known large gastric ulcer. No definit caron fistula formation is identified. Overall relatively slow kayley jerald emptying subjectively. 2. Normal appearance of the esophagus. V isualized portions the proximal small bowel appear grossly norm al as well. 3. Patient had a large amount of fluid a nd food within the stomach prior to the exam. Patient did vomit ext ensively prior to the beginning of the exam as well. She had b een n.p.o. indicating gastric outlet obstruction. Tyler Clemente MD RAD [place] documented in this encounter Visit Diagnoses Diagnosis Gastric ulcer Gastric ulcer, unspecified as acute or c hronic, without mention of hemorrhage, perforation, or obstruction documented in this encounter Care Teams [employer]ger Relationship Specialty Start Date End Date Shiraz Simeon PA-C PCP - General 11/02/11 03/01/16 [address] [place] [address] documented as of this encounter
--- OUTSIDE RECORDS SUMMARY | 2022-05-31 14:46 | XMS_ITS | Encounter Summary ---
:1945 Author Organization [employer] Address [address] [place] [address] Care Team Providers Name Role Phone Shiraz Simeon PA-C Primary Care Provider Reason for Visit Reason Comments Appt. Needed Encounter Details Date Type Department Care Team Description 01/29/2012 [facility] [address] odessa Clemente MD Appt. Needed Endoscopy [address] [place] [address] [place], [place] [address] [phone] Social History Tobacco Use Types Packs/Day Years Used Date Smoking Tobacco: Never Assessed Sex Assigned at Date Recorded Not on file documented as of this encounter Nursing Notes Jovany Carreno RN - 02/02/2012 2:58 PM CDT appt made for 03/08 Tyler Clemente MD - 01/31/2012 5:43 PM CDT Next available is OK Jovany Carreno RN - 01/30/2012 10:57 AM CDT currently you do not have an opening in the next few weeks, when would like for her to be seen Tyler Clemente MD - 01/29/2012 6:31 PM CDT Please schedule a clinic follow up with me in the next several weeks if possible to discuss her ulcer disease. Thanks. documented in this encounter Plan of Treatment Not on filedocumented as of this encounter Visit Diagnoses Not on filedocumented in this encounter Care Teams [employer] Technical Assistant Relationship Specialty Start Date End Date Shiraz Simeon PA-C PCP - General 11/02/11 03/01/[id number] [place] [id number] documented as of this encounter
--- OUTSIDE RECORDS SUMMARY | 2022-05-31 14:46 | XMS_ITS | Encounter Summary ---
:1945 Author Organization [employer] Address [address] [place] [address] Care Team Providers Name Role Phone Shiraz Simeon PA-C Primary Care Provider Encounter Details Date Type Department Care Team Description 11/16/2011 Lab Visit [facility] Iron deficiency anemia [address] [place] [id number] Social History Tobacco Use Types Packs/Day Years Used Date Smoking Tobacco: Never Assessed Sex Assigned at Date Recorded Not on file documented as of this encounter Plan of Treatment Not on filedocumented as of this encounter Procedures Procedure Name Priority Date/Time Associated Comments Diagnosis TISSUE TRANSGLUTAMINASE Routine 11/16/2011 2:07 Iron deficienc y Results for this AB IGA PM CDT anemia procedure are i n the results section. HEMOGLOBIN, BLOOD Routine 11/16/2011 2:07 Iron deficiency Resu lts for this PM CDT anemia procedure are i n the results section. documented in this encounter Results TISSUE TRANSGLUTAMINASE AB IGA (11/16/2011 2:07 PM CDT) [facility] Method Time Signature Tissue 8 0 - 19 HP CONVERSION Transglutaminase Units Antibody, IgA Comment: INTERPRETIVE INFORMATION: Tissue Transgl utaminase (tTG) Antibody, IgA 19 Units or less: Negative 20-30 Units: Weak Positive 31 Units or greater: Moderate to Strong Positive Presence of the tissue transglutaminase (tTG) IgA antibody is associated with gluten-sensitive ente ropathies such as celiac disease and dermatitis herpetifor mis. tTG IgA antibody concentrations greater than or equal to 100 Units usually correlate with results of duoden al biopsies consistent with a diagnosis of celiac di sease. For antibody concentrations greater than 20 Units but less than 100 Units, additional testing for endomysial (FELICIA) IgA concentrations may improve the positive predictive value for disease. Specimen Anatomical Collection Method Collection Time Receive d Time (Source) Location / / Volume Laterality 11/16/2011 2:07 PM 2 6:11 CDT PM CDT Narrative HP CONVERSION - 11/18/2011 2:24 PM CDT Performed at [facility] [address] [place] [id number] Shiraz Simeon PA-C LAB_1 Performing Organization Address City/[facility] Phon e Number HP CONVERSION (ABNORMAL) Hemoglobin, Blood (11/16/2011 2:07 PM CDT) P athologist Signature Hemoglobin 8.5 (L) 11.8 - 15.5 HP CONVERSION g/dL Specimen Anatomical Collection Method Collection Time Receive d Time (Source) Location / / Volume Laterality 11/16/2011 2:07 PM 2 2:07 CDT PM CDT Narrative HP CONVERSION - 11/16/2011 2:28 PM CDT Performed at [facility], [address] [place] [address] [place] [address] Shiraz Simeon PA-C LAB_1 Performing Organization Address City/[facility] Phon e Number HP CONVERSION documented in this encounter Visit Diagnoses Diagnosis Iron deficiency anemia Iron deficiency anemia, unspecified documented in this encounter Care Teams Security Sme Relationship Specialty Start Date End Date Shiraz Simeon PA-C PCP - General 11/02/11 03/01/16 [facility] [address] [id number] documented as of this encounter
--- OUTSIDE RECORDS SUMMARY | 2022-05-31 14:46 | XMS_ITS | Encounter Summary ---
:1945 Author Organization Formerly [facility] Address [address] [place] [address] Care Team Providers Name Role Phone Shiraz Simeon PA-C Primary Care Provider Reason for Visit Reason Comments CONSULT Encounter Details Date Type Department Care Team Description 01/04/2012 Hospital Encounter [facility] [address] [place], [place] [address] Social History Tobacco Use Types Packs/Day Years Used Date Smoking Tobacco: Never Assessed Sex Assigned at Date Recorded Not on file documented as of this encounter Last Filed Vital Signs Vital Sign Reading Time Taken Comments Blood Pressure 104/54 01/04/2012 11:01 AM CDT Pulse 93 01/04/2012 11:01 AM CDT Temperature 36.8 ??C (98.2 ??F) 01/04/2012 11:01 AM CDT Respiratory Rate - - Oxygen Saturation - - Inhaled Oxygen Concentration - - Weight 43.2 kg (95 lb 3.2 oz) 01/04/2012 11:01 AM CDT Height 157.5 cm (5' 2) 01/04/2012 11:01 AM CDT Body Mass Index 17.41 01/04/2012 11:01 AM CDT documented in this encounter Medications [...] Take 1 capsule by 60 capsule 11 10/30/2012 20 MG capsule mouth 2 times daily (before meals). documented as of this encounter Consult Notes Anna orellana MD - 01/04/2012 11:59 PM CDT Shruti Corbin MR#: [id number] : 1945 CLINIC CONSULTATION NOTE DATE OF CONSULATATION: 01/04/12 REASON FOR REQUEST/CONSULTATION: Further evaluation and management of iron deficiency anemia REQUESTING PHYSICIAN: Jeri Taylor MD IMPRESSIONS: 1. Iron deficiency anemia due to GI losses and Peptic ulcer disease. 2. Peptic ulcer disease due to NSAIDs. Patient Active Problem List Diagnoses Code ??? Generalized anxiety disorder 300.02 ??? Restless legs syndrome (RLS) 333.94 ??? Chronic back pain 724.5AW ??? YUNG/BSO RECOMMENDATIONS/DISCUSSIONS: Ms. Corbin's iron deficiency anemia is clearly related to her Peptic ulcer disease and GI losses. Theimportance of continuing to refrain for agents, such as ASA and NSAIDs, that increase her risk for UGI inflammation and ulcers have been discussed. The importance of continuing her Prilosec with compliance has been discussed. The issues of the gastro-duodenal fistula I will leave to the recommendations from the GI group and primary care team. From the standpoint of her iron deficiency, certainly compliance and tolerance of the oral iron supplements has been reviewed. I did review her tolerance and she feels that the nausea was mild. Though the absorption maybe less, she may do better with the iron supplement taken with food. If she can tolerate the iron with food, she will do better than not taking the iron at all. She can take Compazine 10mg po 30-60 minutes prior to the iron supplement and the compazine can be used q6hrs as needed afterwards. Assuming she is not having any ongoing losses, it may take upto 6-9 months to fully replace her iron stores, even after the Hgb/MCV has been been corrected. If she is having any ongoing blood losses, certainly successful replacement will be difficult unless we were able to maintain a positive iron balance Alternatively, if she does not feel she can take the iron orally or despite taking the iron with food and compazien is not successful, the iron can be replaced intravenously. The potenital side effectsof IV iron do include though are not limited to nausea, vomiting, diarrhea or constipation, phlebitis, abdominal cramping and/or diarrhea, joint and muscle pain, rash, and allergic side effects with rash, shortness of breath, wheezing, fall in blood pressure, and swelling. Fortunately, these side effects are less common with the newer preparations of iron, and the options of various supportive medications. Ms. Corbin preferred trying the Oral iron with food and compazine over the IV iron at this time. She will take the Ferrous Gluconate 325mg bid rather than tid, since I think she will have further improved tolerance and thereby likely better tolerance and will receive more of the agent in the long run. We will follow up her Hgb in about 2-3 months to see if she is making good progress. However, if she is having tolerance issues she will contact us prior to that time and we can change her management toinclude the IV iron replacement. Follow up of her next EGD and again will likely be needed given her persistent findings on her recent EGD. Again, we will leave the discretion and timing of follow up EGD to the GI group and her primary care physician. Ms. Corbin has a good understanding of the above and all questions have been addressed to her satisfaction. HISTORY PRESENT ILLNESS: Ms. Corbin is a 66 y.o. female who has not routine follow up with general medical care for over 10 years. She reports being in her usual state of health until 08/2011. She had driven from [place] to [place] to attend her daughter's wedding. She felt ill during the drive and was having increasing diarrhea and gas with poor appetite. She did not feel her stool was black or bloody. When she returned to the [facility], she felt improved until early Oct, 2011. She presented to primary care on 11/02/11 with complaints of increasing anxiety, decreased ability to sleep, increased feelings of jitteriness restless leg syndrome. She complained of increasing fatigue, and assumed that this was due to not sleeping well. She underwent further evaluation which included a CBC. She was found with marked anemia. Her CBC showed WBC 12.8, Hgb 4.8, MCV 67.8, Plts 646,000 with 10.1 neutrophils, 1.5 lymphs 1.0 monos.Other testing showed elevated ESR 73, CRP 2.1, BUN 20, Creat 0.8, AST 17, ALT 9. She was provided transfusion support with 2 units of PRBCs and follow up Hgb improved to 7.7 on 11/08/11 and upto 8.5 by 11/16/11. She did undergo further evalution with Colonoscopy on 11/08/11 which was completely normal. She went onto EGD evaluation with report noted below. EGD was performed on 11/13/11 and showed: 1. Normal esophagus. 2. A large amount of food (residue) in the stomach obscured visualization. 3. Multiple gastric ulcers with clean bases. A good portion of the antrum is ulcerated. Likely due to Naprosyn. This was biopsied. Significant scarring of stomach noted. 3. Duodenal deformity. Anatomy difficult to visualize due to retained food. Could not rule out a gastroduodenal fistula/double pylorus. Pathology results from biopsies were as follows: Stomach, gastric antrum ulcer, biopsies: 1. Benign ulcer bed and associated chronic active antral gastritis. 2. Goblet cell metaplasia. B) Stomach, fundus ulcer, biopsies: - Benign ulcer bed and associated chronic active gastritis. Ms. Corbin was seen in follow up with her primary care team and informed of the EGD findings. She retrospectively had been taking Naproxen bid for her chronic back pain. Her Napoxen was stopped and she was provided Tramadol, Prilosec twice a day and placed on Ferrous gluconated tid. She also was scheduled for a follow up EGD in 12/2011 with results as noted below. EGD was performed on 01/10/12 and showed: 1. Normal esophagus. 2. Multiple gastric ulcers with clean base. Some old blood noted but no active bleeding. These look slightly improved compared with 11/11/11. 3. 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 4. 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 Able to see distally but unable to traverse. 5. One duodenal ulcer with clean base. 6. A large amount of food (residue) in the stomach obscured visualization. Pathology results from biopsies from the duodenal ulcer were as follows: 1. Ulcerated granulation tissue. 2. Mild chronic gastritis in the non-ulcerated fragments. 3. No evidence of malignancy by cytokeratin IHC staining. 4. Negative IHC stain for Helicobacter. She was followed up in 12/2011 and her follow up CBC showed WBC 14.0, Hgb 9.6, MCV 82, Plts 355,000 with 11.0 Neutrophils, 1.6 lymphs, 1.3 monos. Follow up Ferritin 6. Ms. Corbin had not been taking her iron supplement with any compliance by her own admission due to her lack of understanding of the impor tance for replacement and mild nausea. She had been taking the iron with food. She had no been provided any trial of antiemetic use. She did not have any vomiting, constipation, diarrhea, or abdominal cramping. She is now referred to the hematology division for further management of her iron deficiency. At this time Ms. Corbin reports feeling stable and overall improved with no recurrent fatigue, poor sleepingor restless legs. She has not had any recurrent diarrhea, dyspepsia or upper abdominal discomforts. Her appetite is good. Allergies Allergen Reactions ??? Ferrous Sulfate Nausea Only Stomach upset Current outpatient prescriptions Medication Sig ??? ferrous gluconate (FERGON) 325 mg (37.5 mg iron) tablet Take 1 tablet by mouth daily (every 24 hours). X 1 week, then if tolerated may increase to bid. (2 hours after meal). ??? gabapentin (NEURONTIN) 100 mg capsule Take 2-3 capsules by mouth 2 TIMES DAILY AC PRN for Other. ??? omeprazole (PRILOSEC) 20 mg capsule Take 1 capsule by mouth 2 times daily (before meals). ??? sertraline (ZOLOFT) 50 mg tablet Take 1 tablet by mouth daily (every 24 hours). Take 1/2 tab daily x 6 days, then 1 tab daily thereafter. ??? traMADol (ULTRAM) 50 mg tablet Take 1 tablet by mouth every 6 hours as needed for Pain. History Substance Use Topics ??? Smoking status: Current Some Day Smoker -- 0.5 packs/day for 30 years Types: Cigarettes ??? Smokeless tobacco: Never Used Comment: Smoking History Packs/day: ??? Alcohol Use: No Family History Problem Relation Age of Onset ??? AAA Sister non-smoker, normotensive ??? Renal Failure Sister ??? Other Mother ??? Osteoarthritis Mother ??? High Cholesterol Brother ??? Hypertension Brother REVIEW OF SYSTEMS: The complete review of systems is otherwise negative other than that noted in history of present illness. EMOTIONAL STATE: Without significant anxiety, distress or depression. PHYSICAL EXAM: BP 104/54 Pulse 93 Temp(Src) 98.3 ??F (36.8 ??C) (Oral) Ht 5' 2 (1.575 m) Wt 95 lb 3.2 oz (43.182 kg) BMI 17.41 kg/m2 PAIN: 0/ 10 GENERAL: A well appearing 66 y.o. female in good spirits and no acute distress. SKIN: Cool, without rashes or lesions. There is no unusual bruising, purpura, or petechiae. NECK: Supple, with. The trachea was midline.There are no cervical, supraclavicular or infraclavicular adenopathy. HEENT: Pupils equal, round and reactive. Extraocular movements intact. Sclerae anicteric, conjunctivae pink and noninjected. Oropharynx: Clear without lesions, exudates, nor injection. Mucous membranesare pink and moist. AXILLAE: There is no lymphadenopathy bilaterally. HEART: Regular rate and rhythm. LUNGS: Clear to auscultation bilaterally without crackles, rhonchi, or wheezes. Breathing is unlabored. ABDOMEN: Normal active bowel sounds, soft, nondistended, without hepatosplenomegaly or masses. Thereare no inguinal lymph nodes EXTREMITIES: No clubbing, cyanosis, nor edema. No swelling or erythema of any joint. NEURO: Alert and oriented x3. Cranial nerves 2-12 were intact, and motor exam showed 5 over 5 strength in all extremities. Deep tendon reflexes were 2+ in the upper and lower extremities bilaterally and were symmetric. Lab Results Component Value Date White Blood Cell Count 14.0* 01/02/2012 Red Blood Cell Count 3.84 01/02/2012 Hemoglobin 9.6* 01/02/2012 Hematocrit 31.5* 01/02/2012 Mean Corpuscular Volume 82.0 01/02/2012 RDW 18.6* 01/02/2012 Platelet Count 355 01/02/2012 Absolute Neutrophils 11.0* 01/02/2012 Absolute Lymphocytes 1.6 01/02/2012 Absolute Monocytes 1.3* 01/02/2012 Absolute Eosinophils 0.1 01/02/2012 Absolute Basophils 0.1 01/02/2012 Lab Results Component Value Date Aspartate Aminotransferase 17 11/02/2011 Calcium 9.3 11/02/2011 Blood Urea Nitrogen 20 11/02/2011 Creatinine Serum 0.8 11/02/2011 Est GFR Am >60 11/02/2011 Est GFR Non-Afr Am >60 11/02/2011 Alanine Aminotransferase 9 11/02/2011 [cc: KENISHA Cisneros MD Hematology/Oncology Pager [phone] documented in this encounter Miscellaneous Notes Medication History - Cameron Reddy MD - 01/04/2012 11:59 PM CDT INPATIENT MEDS Encounter Date: 01/04/12 ferrous gluconate (FERGON) 325 mg (37.5 mg iron) tablet Start Date:01/04/12, End Date:04/04/12, Frequency:DAILY *No Administrations Recorded documented in this encounter Plan of Treatment Not on filedocumented as of this encounter Visit Diagnoses Diagnosis Iron deficiency anemia Iron deficiency anemia, unspecified documented in this encounter Care Teams Rotary Screen Printing Machine Operator Relationship Specialty Start Date End Date Shiraz Simeon PA-C PCP - General 11/02/11 03/01/16 [address] [place] [address] documented as of this encounter
--- OUTSIDE RECORDS SUMMARY | 2022-05-31 14:46 | XMS_ITS | Encounter Summary ---
:1945 Author Organization [facility] Address [address] [place] [address] Care Team Providers Name Role Phone Shiraz Simeon PA-C Primary Care Provider Encounter Details Date Type Department Care Team Description 02/20/2012 Notes/Orders HealthPartAnna Leo MD Iron deficiency [facility] [address] [facility] anemia (Primary Dx) Center Oncology [facility], [address] [place] [address] [place], [place] [phone] (Work) [phone] Social History Tobacco Use Types Packs/Day Years Used Date Smoking Tobacco: Never Assessed Sex Assigned at Date Recorded Not on file documented as of this encounter Plan of Treatment Not on filedocumented as of this encounter Visit Diagnoses Diagnosis Iron deficiency anemia - Primary Iron deficiency anemia, unspecified documented in this encounter Care Teams Piece Dyer Relationship Specialty Start Date End Date Shiraz Simeon PA-C PCP - General 11/02/11 03/01/[address] [place] [id number] documented as of this encounter
--- OUTSIDE RECORDS SUMMARY | 2022-05-31 14:46 | XMS_ITS | Encounter Summary ---
:1945 Author Organization [facility] Address [address] [place] [address] Care Team Providers Name Role Phone Shiraz Simeon PA-C Primary Care Provider Reason for Visit Reason Comments RESULTS, TEST Encounter Details Date Type Department Care Team Description 02/05/2012 Telephone [facility] Shiraz Simeon PA-C RESULTS, TEST [address] [place] [address] [place] [address] [phone] (Wo rk) Social History Tobacco Use Types Packs/Day Years Used Date Smoking Tobacco: Never Assessed Sex Assigned at Date Recorded Not on file documented as of this encounter Nursing Notes Maty Piedra, RN - 02/05/2012 1:13 PM CDT Spoke with pt regarding lab results, pt aware that she will need transfusion, per MD order. Will call pt back when scheduled. Fauzia Barone RN - 02/05/2012 12:57 PM CDT Action requested: Lab Results Additional Info: Patient calling for Hgb result. Store Grocery Merchandiser ordered today. Will forward to oncology /hematology. Patient waiting to hear from them. Hgb 6.8 Stanton Mcdowell - 02/05/2012 12:45 PM CDT LAB/RADIOLOGY RESULTS/REQUESTS Name of Clinician: dewey Results: What test result is needed?: hemoglobin When and Where was test done?: today, [facility] Who ordered test?: dewey documented in this encounter Plan of Treatment Not on filedocumented as of this encounter Visit Diagnoses Not on filedocumented in this encounter Care Teams Business Systems Analyst Relationship Specialty Start Date End Date Shiraz Simeon PA-C PCP - General 11/02/11 03/01/16 [address] [place] [address] documented as of this encounter
--- OUTSIDE RECORDS SUMMARY | 2022-05-31 14:46 | XMS_ITS | Encounter Summary ---
:1945 [facility] Address [address] [place] [address] Care Team Providers Name Role Phone Shiraz Simeon PA-C Primary Care Provider Encounter Details Date Type Department Care Team Description 01/23/2012 Imaging [facility] [address] [place], [place] [address] Social History Tobacco Use Types Packs/Day Years Used Date Smoking Tobacco: Never Assessed Sex Assigned at Date Recorded Not on file documented as of this encounter Plan of Treatment Not on filedocumented as of this encounter Visit Diagnoses Not on filedocumented in this encounter Care Teams Ply Splicer Relationship Specialty Start Date End Date Shiraz Simeon PA-C PCP - General 11/02/11 03/01/[address] [id number] documented as of this encounter
--- OUTSIDE RECORDS SUMMARY | 2022-05-31 14:46 | XMS_ITS | Encounter Summary ---
:1945 Author Organization [facility] Address [address] [place] [address] Care Team Providers Name Role Phone Shiraz Simeon PA-C Primary Care Provider Reason for Visit Reason Comments Follow-up Encounter Details Date Type Department Care Team Description 01/02/2012 Office Visit Jeri Britt, Iron deficiency anemia (Prim [place] Dx); [address] PA-C NSAID-induced gastric ulcer; [place] [address] [address] Fatigue; [phone] [place] [address] Loss of appetite [phone] (Wo rk) Social History Tobacco Use Types Packs/Day Years Used Date Smoking Tobacco: Never Assessed Sex Assigned at Date Recorded Not on file documented as of this encounter Last Filed Vital Signs Vital Sign Reading Time Taken Comments Blood Pressure 86/48 01/02/2012 11:02 AM CDT Pulse 109 01/02/2012 11:25 AM CDT Temperature - - Respiratory Rate - - Oxygen Saturation 97% 01/02/2012 11:25 AM CDT Inhaled Oxygen Concentration - - Weight 42.6 kg (94 lb) 01/02/2012 11:02 AM CDT Height - - Body Mass Index 16.65 11/13/2011 3:00 PM CDT documented in this encounter Patient Instructions Patient InstructionsJeri Taylor PA-C - 01/02/2012 11:59 AM CDT .Please schedule an appointment with our oncology department by calling [phone]. documented in this encounter Progress Notes Jeri Taylor PA-C - 01/02/2012 12:57 PM CDT This office note has been dictated. Jeri Taylor PA-C - 01/02/2012 12:56 PM CDT Progress Notes signed by Jeri Taylor PA-C at 01/05/12 0752 Author: Jeri Taylor PA-C Service: (none) Author Type: Physician Camp Nurse Filed: 01/05/12 0752 Note Time: 01/02/12 1256 Status: Signed Teacher Of Gifted Students: Jeri Taylor PA-C (Physician Camp Nurse) NAME: RONDA CORBIN MR#: [id number] CSN: [id number] AUTHENTICATING CLINICIAN: Jeri Taylor PA-C CONFIRM #: [id number] LOC: 1706 CLINIC PROGRESS NOTE DATE OF VISIT: 01/02/2012 : 1945 This is a pleasant 66-year-old female who presents today as a new patient to me. She is presenting today for a followup. She states that yesterday she did not feel well and this is what made her come in today. She states today she feels much better. She has a history of profound iron deficiency anemia. Please see her visit from 11/02/2011 and 11/16/2011 with physician programs assistant, Shiraz Simeon. Ronda wasdiscovered to have a hemoglobin initially of 4.7. She was treated and was diagnosed with a NSAID induced gastric ulcer as well. This was done by endoscopy. She does have a followup endoscopy scheduled for next week. Ronda states yesterday she feels like she over did it in the sun. She was outside doing some yard work in the 100 degree heat. She felt dizzy and lightheaded. She came inside and drank some water and felt better. She states today she feels much, much better. She is wondering if we can repeat her hemoglobin. She states she has not taken her iron in over 3 weeks. She states that it made her feel mildly nauseous. She did not have any vomiting. She denies any blood in her stool. She has no abdominal pain. She does describe having a lack of appetite. She is saying thatshe is forcing herself to eat. Since she was seen in clinic she has lost 6 pounds. She is not havingany vomiting or diarrhea. She states mainly she is here today to recheck her hemoglobin and she is happy that she is feeling better compared to yesterday. She denies dizziness, lightheadedness. Today, no chest pain, cough, or shortness of breath. No nausea, vomiting, or diarrhea. Vitals, medications, and allergies have been reviewed and updated in Epic. GENERAL IMPRESSION: This is a pleasant female, resting quietly, in no acute distress. Physical exam, oropharynx is clear. Heart is tachycardiac. Lungs are clear to auscultation bilaterally. Abdomen is soft and nontender. No organomegaly. No rebound tenderness. No guarding. ASSESSMENT: 1. Followup profound iron deficiency anemia. 2. Non-steroidal anti-inflammatory drug induced gastric ulcer. 3. Fatigue. 4. Loss of appetite. PLAN: Immediately we did repeat her hemoglobin today. It was improved from her last visit. Her hemoglobin today was 9.6. Iron and ferritin are pending. Stressed how important it is for her to take her iron. She did stopped taking this and felt it made her feel mildly nauseous. She states she did not realizehow important it was to take and she does agree to do so. I recommend that she take this 3 times daily. I did provide her with education on helping her tolerate iron such as taking it on a full stomachwith meals. Would recommend CON2 in Hematology for a followup. She does have her endoscopy schedulednext week for a followup for her NSAID induced gastric ulcer. Certainly it sounds like yesterday shemay have had a mild heat stroke. Her blood pressure is low today at 86/48. I did repeat this at the end of the visit and it was 106/68. Recommend that she rest and drink plenty of fluids. She feels significantly better today than yesterday. Discussed with her that if she starts getting symptoms including chest pain, shortness of breath, any more dizziness, or feeling ill that she needs to seek help urgently and she agrees with this plan. This likely would mean the emergency room and she agrees to do so. As far as her appetite and weight loss, this may need to be worked up in thenear future. Recommended followup with her primary next week after she sees Hematology this week. All of her questions have been answered. CYNTHIA:CRYSTAL C: CONFIRM #: [id number] documented in this encounter Plan of Treatment Not on filedocumented as of this encounter Visit Diagnoses Diagnosis Iron deficiency anemia - Primary Iron deficiency anemia, unspecified NSAID-induced gastric ulcer Gastric ulcer, unspecified as acute or c hronic, without mention of hemorrhage, perforation, or obstruction Fatigue Other malaise and fatigue Loss of appetite Anorexia documented in this encounter Care Teams Line Out Man Relationship Specialty Start Date End Date Shiraz Simeon PA-C PCP - General 11/02/11 03/01/16 [address] [place] [address] documented as of this encounter
--- OUTSIDE RECORDS SUMMARY | 2022-05-31 14:46 | XMS_ITS | Encounter Summary ---
:1945 Author Organization [employer] Address [address] [address] Care Team Providers Name Role Phone Shiraz Simeon PA-C Primary Care Provider Encounter Details Date Type Department Care Team Description 01/10/2012 Hospital Encounter [facility] 650 0 Endoscopy 6[address] [facility] [place] [address] Social History Tobacco Use Types Packs/Day Years Used Date Smoking Tobacco: Never Assessed Sex Assigned at Date Recorded Not on file documented as of this encounter Last Filed Vital Signs Vital Sign Reading Time Taken Comments Blood Pressure 103/67 01/10/2012 11:15 AM CDT Pulse 71 01/10/2012 11:15 AM CDT Temperature - - Respiratory Rate 16 01/10/2012 11:15 AM CDT Oxygen Saturation 97% 01/10/2012 11:15 AM CDT Inhaled Oxygen Concentration - - [...] ULTRAM) Take 1 tablet by 120 tablet 11/16/1910/30/2012 50 MG mouth every 6 hours tabletIndications: as needed for Pain. Chronic back pain omeprazole (PRILOSEC) Take 1 capsule by 60 capsule 10/30/2012 20 MG capsule mouth 2 times daily (before meals). documented as of this encounter Progress Notes Silke Dang RN - 01/10/2012 10:45 AM CDT Patient encouraged to deep breath to maintain oxygen sat level above 90%. Responded quickly. documented in this encounter Procedure Notes Tyler Clemente MD - 01/10/2012 9:40 AM CDT Procedures signed by Tyler Clemente MD at 01/10/12939 Author: Tyler Clemente MD Service: (none) Author Type: Physician Filed: 01/10/12 1059 Note Time: 01/10/12939 Status: Signed Engineer Of System Development: Tyler Clemente MD (Physician) Patient Name: Shruti Corbin Gender: Anne Procedure Date: 01/10/2012 09:40:00 AM Date of : 1945 Age: 66 Admit Type: Outpatient Note Status: Finalized Attending MD: Tyler Clemente MD Procedure: Upper GI endoscopy Indications: Follow-up of acute gastric ulcer Providers: Tyler Clemente MD, Silke Dang, RN Referring MD: Tyler Clemente MD, ZAHIDA Guardado Medicines: Midazolam 2 mg IV, Fentanyl 100 micrograms IV, Benzocaine [...] procedure were verified by the physician at 10:23 AM. Mental Status Examination: alert and oriented. [...] and oxygen saturations were monitored continuously. The GIF-H180-7 gastroscope was introduced through the mouth, and advanced to the duodenal bulb. The upper GI endoscopy was accomplished without difficulty. The patient tolerated the procedure well. Findings: The examined esophagus was normal. Two non-bleeding linear gastric ulcers with no stigmata of bleeding were found in the gastric body. The largest lesion was 15 mm in largest dimension. Biopsies were taken with a cold forceps for histology. One oozing cratered gastric ulcer was found in the gastric antrum. The lesion was 30 mm in largest dimension. Biopsies were taken with a cold forceps for histology. 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 This was non-traversed. One non-bleeding superficial duodenal ulcer with no stigmata of bleeding was found in the duodenal bulb. The lesion was 7 mm in largest dimension. A large amount of food (residue) was found in the gastric fundus and in the gastric body. Impression: - Normal esophagus. - Multiple gastric ulcers with clean base. Some old blood noted but no active bleeding. These look slightly improved C/W 11/10. 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 Able to see distally but unable to traverse. - One duodenal ulcer with clean base. - A large amount of food (residue) in the stomach obscured visualization. Recommendation: - Continue PPI BID. - Continue to avoid all NSAIDs/aspirin. - Await pathology results. 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 All Rights Reserved. The codes documented in this report are preliminary and upon manufacturing supervisor review may be revised to meet current compliance requirements. Tyler Clemente MD Signed Date: 01/10/2012 10:58:52 AM Number of Addenda: 0 This document has been electronically signed. Note initiated on 01/10/2012 09:41:01 AM documented in this encounter Miscellaneous Notes Medication History - Cameron Reddy MD - 01/10/2012 11:59 PM CDT INPATIENT MEDS Encounter Date: 01/10/12 Fentanyl Citrate (PF) (SUBLIMAZE) injection 25-100 mcg Start Date:01/10/12, End Date:01/11/12, Frequency:PRN Taken Dose Action User Route Site Recorded Comment Reason 01/10/12 1044 100 mcg Given Silke Dang RN Intravenous - 01/10/12 1044 - - midazolam (VERSED) injection 0.5-2 mg Start Date:01/10/12, End Date:01/11/12, Frequency:PRN Taken Dose Action User Route Site Recorded Comment Reason 01/10/12 1100 2 mg Given Silke Dang RN Intravenous - 01/10/12 1044 - - ondansetron (ZOFRAN) injection 4 mg Start Date:01/10/12, End Date:01/11/12, Frequency:PRN *No Administrations Recorded benzocaine (HURRICAINE) 20 % spray Start Date:01/10/12, End Date:01/11/12, Frequency:PRN Taken Dose Action User Route Site Recorded Comment Reason 01/10/12 1044 1 spray Given Silke Dang RN Mouth/Throat - 01/10/12 1044 - - 0.9% sodium chloride latex free syringe 10 mL Start Date:01/10/12, End Date:01/11/12, Frequency:PRN Taken Dose Action User Route Site Recorded Comment Reason 01/10/12 1044 10 mL Given Silke Dang RN Intravenous - 01/10/12 1044 - - Fentanyl Citrate (PF) (SUBLIMAZE) 100 mcg/2 mL (50 mcg/mL) injection Start Date:01/10/12, End Date:-, Frequency:- *No Administrations Recorded midazolam (VERSED) 1 mg/mL injection Start Date:01/10/12, End Date:-, Frequency:- *No Administrations Recorded 0.9% sodium chloride latex free syringe Start Date:01/10/12, End Date:-, Frequency:- *No Administrations Recorded documented in this encounter Plan of Treatment Not on filedocumented as of this encounter Procedures Procedure Name Priority Date/Time Associated Comments Diagnosis ENDOSCOPY OBTAINED Routine 01/10/2012 10:46 AM Re sults for this ANATOMICAL PATH CDT procedure ar e in the results section. SURGICAL SONALI ELMORE Routine 01/10/2012 7:00 AM Re sults for this NICOLLET CDT procedure are i n the results section. documented in this encounter Results ENDOSCOPY OBTAINED ANATOMICAL PATH (01/10/2012 10:46 AM CDT) athologist Signature Endo Tis See Path HP CONVERSION Specimen (Source) Anatomical Collection Method Collection Time Re ceived Time Location / / Volume Laterality 01/10/2012 10:46 AM CDT Tyler Clemente MD LAB_1 Performing Organization Address City/State/ZIP Code Phon e Number HP CONVERSION Pathology Report (01/10/2012 7:00 AM CDT) Patholo gist Method Time Signature Path: ?Final SURGICAL PATHOLOGY REP ORT HP CONVERSION Pathology #: [id number] ? Date Obtained: 01/10/2012 ?Date Received: 01/10/2012 DIAGNOSIS: Stomach, ulcer- 1. Ulcerated granulation tissue. 2. Mild chronic gastritis in the non-ulcerated fragments. 3. No evidence of malignancy by cytokeratin IHC staining. 4. Negative IHC stain for Helicobacter. ?Michele MARTIN ? (electronic signatur e) ? 01/11/2012 ??14:1 9 CLINICAL NOTES: Follow up SP ulcers ORGAN/TISSUE SITE: Gastric ulcers GROSS DESCRIPTION: The specimen is labeled gastric and consists of multiple house mucosal tissue fragments averaging 0.2 cm in greatest dimension. ?? Entirely submitted in cassette [id number]. ? WEYAL MICROSCOPIC DESCRIPTION: Microscopic examination performed. CPT Codes: ?69316 x 1 ??18747 x 2 ? End of Report Specimen Anatomical Collection Method Collection Time Receive d Time (Source) Location / / Volume Laterality STOMACH STRUCTURE 01/10/2012 7:00 AM 12/30 7:00 / Unknown CDT AM CDT Tyler Clemente MD LAB_1 Performing Organization Address City/State/ZIP Code Phon e Number HP CONVERSION documented in this encounter Visit Diagnoses Not on filedocumented in this encounter Care Teams Interactive Digital Media Specialist Relationship Specialty Start Date End Date Shiraz Simeon PA-C PCP - General 11/02/11 03/01/16 [address] [place] [address] documented as of this encounter
--- OUTSIDE RECORDS SUMMARY | 2022-05-31 14:46 | XMS_ITS | Encounter Summary ---
:1945 Author Organization [facility] Address [address] [place] [address] Care Team Providers Name Role Phone Shiraz Simeon PA-C Primary Care Provider Encounter Details Date Type Department Care Team Description 02/08/2012 Notes/Orders HealthPartAnna Leo MD Iron deficiency [facility] Cancer [address] [facility] anemia (Primary Dx) Center Oncology [facility], [address] [place] [address] [place], [place] [phone] (Work) [phone] Social History Tobacco Use Types Packs/Day Years Used Date Smoking Tobacco: Never Assessed Sex Assigned at Date Recorded Not on file documented as of this encounter Plan of Treatment Not on filedocumented as of this encounter Visit Diagnoses Diagnosis Iron deficiency anemia - Primary Iron deficiency anemia, unspecified documented in this encounter Care Teams Ratchet Setter Relationship Specialty Start Date End Date Shiraz Simeon PA-C PCP - General 11/02/11 03/01/[address] [place] [address] documented as of this encounter
--- OUTSIDE RECORDS SUMMARY | 2022-05-31 14:46 | XMS_ITS | Encounter Summary ---
:1945 Author Organization [employer] Address [address] [place] [address] Care Team Providers Name Role Phone Shiraz Simeon PA-C Primary Care Provider Encounter Details Date Type Department Care Team Description 01/02/2012 Lab Visit [facility] Iron deficiency anemia [address] [place], [place] [id number] Social History Tobacco Use Types Packs/Day Years Used Date Smoking Tobacco: Never Assessed Sex Assigned at Date Recorded Not on file documented as of this encounter Progress Notes Jeri Taylor PA-C - 01/06/2012 2:02 PM CDT Quick Note: Referred to hematology for follow-up of abnormal labs. documented in this encounter Miscellaneous Notes Miscellaneous - 08/11/2016 4:46 PM CSTNotes Recorded by Jeri Taylor PA-C on 01/06/2012 at 2:02 PMReferred to hematology for follow-up of abnormal labs. CTOR OF LABOR RELATIONS Miscellaneous - 08/11/2016 4:46 PM CSTNotes Recorded by Jeri Taylor PA-C on 01/06/2012 at 2:02 PMReferred to hematology for follow-up of abnormal labs. CTOR OF LABOR RELATIONS Miscellaneous - 08/11/2016 4:46 PM CSTNotes Recorded by Jeri Taylor PA-C on 01/06/2012 at 2:02 PMReferred to hematology for follow-up of abnormal labs. CTOR OF LABOR RELATIONS Miscellaneous - 08/11/2016 4:46 PM CSTNotes Recorded by Jeri Taylor PA-C on 01/06/2012 at 2:02 PMReferred to hematology for follow-up of abnormal labs. CTOR OF LABOR RELATIONS documented in this encounter Plan of Treatment Not on filedocumented as of this encounter Procedures Procedure Name Priority Date/Time Associated Comments Diagnosis IRON (NO IBC OR SAT) Routine 01/02/2012 11:29 Iron deficiency Results for this AM CDT anemia procedure are i n the results section. COMPLETE BLOOD STAT 01/02/2012 11:29 Iron deficiency Result s for this COUNT-W/DIFF AM CDT anemia procedure are i n the results section. DIFFERENTIAL STAT 01/02/2012 11:29 Results for this AM CDT procedure are i n the results section. FERRITIN Routine 01/02/2012 11:29 Iron deficiency Results for this AM CDT anemia procedure are i n the results section. documented in this encounter Results (ABNORMAL) Differential (01/02/2012 11:29 AM CDT) [facility] gist Method Time Signature Absolute 11.0 (H) 1.8 - 8.0 HP CONVERSION Neutrophils k/cmm Absolute 1.6 1.1 - 4.0 HP CONVERSION Lymphocytes k/cmm Absolute 1.3 (H) 0.2 - 0.8 HP CONVERSION Monocytes k/cmm Absolute 0.1 0.0 - 0.5 HP CONVERSION Eosinophils k/cmm Absolute 0.1 0.0 - 0.2 HP CONVERSION Basophils k/cmm Specimen Anatomical Collection Method Collection Time Receive d Time (Source) Location / / Volume Laterality 01/02/2012 11:29 01/02/2012 AM CDT 11:29 AM CDT Narrative HP CONVERSION - 01/02/2012 11:54 AM CDT Performed at [facility], [address] [place] [id number] Transcriptions 08/11/2016 4:46 PM CSTNotes Recorded by Jeri Taylor PA-C on 01/06/2012 at 2:02 PMReferred to hematology for follow-up of abnormal labs. Jeri Jean-Baptiste PA-C LAB_1 Performing Organization Address City/[facility] Code Phon e Number HP CONVERSION (ABNORMAL) Ferritin (01/02/2012 11:29 AM CDT) athologist Signature Ferritin Serum 6 (L) 10 - 291 HP CONVERSION ng/mL Specimen Anatomical Collection Method Collection Time Receive d Time (Source) Location / / Volume Laterality 01/02/2012 11:29 01/02/2012 3:09 AM CDT PM CDT Transcriptions 08/11/2016 4:46 PM CSTNotes Recorded by Jeri Taylor PA-C on 01/06/2012 at 2:02 PMReferred to hematology for follow-up of abnormal labs. Jeri Jean-Baptiste PA-C LAB_1 Performing Organization Address [facility] Phon e Number HP CONVERSION (ABNORMAL) Iron (no IBC or Sat) (01/02/2012 11:29 AM CDT) athologist Signature Iron, Serum 20 (L) 50 - 165 HP CONVERSION ug/dL Specimen Anatomical Collection Method Collection Time Receive d Time (Source) Location / / Volume Laterality 01/02/2012 11:29 01/02/2012 3:09 AM CDT PM CDT Transcriptions 08/11/2016 4:46 PM CSTNotes Recorded by Jeri Taylor PA-C on 01/06/2012 at 2:02 PMReferred to hematology for follow-up of abnormal labs. Jeri Jean-Baptiste PA-C LAB_1 Performing Organization Address City/[facility] Code Phon e Number HP CONVERSION (ABNORMAL) Hemogram/Plts/Diff (01/02/2012 11:29 AM CDT) [facility] gist Method Time Signature White Blood Cell 14.0 (H) 3.8 - HP CONVERSION Count 11.0 k/cmm Red Blood Cell 3.84 3.70 - HP CONVERSION Count 5.20 m/cmm Hemoglobin 9.6 (L) 11.8 - HP CONVERSION 15.5 g/dL Hematocrit 31.5 (L) 35.0 - HP CONVERSION 46.0 % Mean Corpuscular 82.0 80.0 - HP CONVERSION Volume 100.0 fL RDW 18.6 (H) 11.0 - HP CONVERSION 15.0 % Platelet Count 355 140 - 450 HP CONVERSION k/cmm Specimen Anatomical Collection Method Collection Time Receive d Time (Source) Location / / Volume Laterality 01/02/2012 11:29 01/02/2012 AM CDT 11:29 AM CDT Narrative HP CONVERSION - 01/02/2012 11:54 AM CDT Performed at [facility], [address] [place] [address] [place] [address] Transcriptions 08/11/2016 4:46 PM CSTNotes Recorded by Jeri Taylor PA-C on 01/06/2012 at 2:02 PMReferred to hematology for follow-up of abnormal labs. Jeri Jean-Baptiste PA-C LAB_1 Performing Organization Address City/State/ZIP Code Phon e Number HP CONVERSION documented in this encounter Visit Diagnoses Diagnosis Iron deficiency anemia Iron deficiency anemia, unspecified documented in this encounter Care Teams Sap Security Architect Relationship Specialty Start Date End Date Shiraz Simeon PA-C PCP - General 11/02/11 03/01/[address] [place] [address] [place] [address] documented as of this encounter
--- OUTSIDE RECORDS SUMMARY | 2022-05-31 14:46 | XMS_ITS | Encounter Summary ---
:1945 Author Organization [facility] Address [address] [place] [address] Care Team Providers Name Role Phone Shiraz Simeon PA-C Primary Care Provider Reason for Visit Reason Comments Infusion Encounter Details Date Type Department Care Team Description 02/23/2012 Hospital Encounter [facility] Oncology Treatment [address] [place], [place] [phone] Social History Tobacco Use Types Packs/Day Years Used Date Smoking Tobacco: Never Assessed Sex Assigned at Date Recorded Not on file documented as of this encounter Last Filed Vital Signs Vital Sign Reading Time Taken Comments Blood Pressure 93/62 02/23/2012 1:24 PM CDT Pulse 77 02/23/2012 1:24 PM CDT Temperature - - Respiratory Rate [...] Medication History - Maureen, MD Cameron - 02/23/2012 11:59 PM CDT INPATIENT MEDS Encounter Date: 02/23/12 0.9% sodium chloride latex free syringe 20 mL Start Date:02/23/12, End Date:02/23/12, Frequency:PRN Taken Dose Action User Route Site Recorded Comment Reason 02/23/12 1327 10 mL Given Betzaida Pope RN Intravenous - 02/23/12 1327 - - 0.9% sodium chloride flush 500 mL Start Date:02/23/12, End Date:02/23/12, Frequency:ONCE Taken Dose Action User Route Site Recorded Comment Reason 02/23/12 1452 500 mL Infused Betzaida Pope RN Intravenous - 02/23/12 1452 - - 02/23/12 1328 500 mL Started Betzaida Pope RN Intravenous - 02/23/12 1328 - - prochlorperazine (COMPAZINE) tablet 10 mg Start Date:02/23/12, End Date:02/23/12, Frequency:ONCE Taken Dose Action User Route Site Recorded Comment Reason 02/23/12 1337 10 mg Given Betzaida Pope RN Oral - 02/23/12 1337 - - iron sucrose (VENOFER) 200 mg in 0.9% sodium chloride 100 mL infusion Start Date:02/23/12, End Date:02/23/12, Frequency:ONCE Taken Dose Action User Route Site Recorded Comment Reason 02/23/12 1452 200 mg Infused Betzaida Pope RN Intravenous - 02/23/12 1452 - - 02/23/12 1338 200 mg Started Betzaida Pope RN Intravenous - 02/23/12 1338 - - documented in this encounter Plan of Treatment Not on filedocumented as of this encounter Visit Diagnoses Diagnosis Iron deficiency anemia Iron deficiency anemia, unspecified documented in this encounter Care Teams Job Boss Relationship Specialty Start Date End Date Shiraz Simeon PA-C PCP - General 11/02/11 03/01/16 [address] [place] [address] documented as of this encounter
--- OUTSIDE RECORDS SUMMARY | 2022-05-31 14:47 | XMS_ITS | Encounter Summary ---
:1945 Author Organization [employer] Address [address] [place] [address] Care Team Providers Name Role Phone Shiraz Simeon PA-C Primary Care Provider Reason for Visit Reason Comments Critical Lab Result Encounter Details Date Type Department Care Team Description 11/02/2011 Telephone [facility] Shiraz Simeon PA-C Critical Lab Result [address] [address] [address] [place] [address] [phone] (Wo rk) Social History Tobacco Use Types Packs/Day Years Used Date Smoking Tobacco: Never Assessed Sex Assigned at Date Recorded Not on file documented as of this encounter Nursing Notes Shiraz Simeon PA-C - 11/02/2011 3:37 PM CDT See other phone notes from today. This has been addressed Lucina Person - 11/02/2011 3:34 PM CDT Critical Hemacrit of 15.8 documented in this encounter Plan of Treatment Not on filedocumented as of this encounter Visit Diagnoses Not on filedocumented in this encounter Care Teams Electrician Marine Relationship Specialty Start Date End Date Shiraz Simeon PA-C PCP - General 11/02/11 03/01/16 [address] [place] [address] documented as of this encounter
--- OUTSIDE RECORDS SUMMARY | 2022-05-31 14:47 | XMS_ITS | Encounter Summary ---
:1945 Author Organization [employer] Address [address] [place] [address] Care Team Providers Name Role Phone Shiraz Simeon PA-C Primary Care Provider Encounter Details Date Type Department Care Team Description 11/16/2011 Notes/Orders [facility] Shiraz Simeon PA-C [address] [place] [address] [place] [address] [phone] (Wo rk) Social History Tobacco Use Types Packs/Day Years Used Date Smoking Tobacco: Never Assessed Sex Assigned at Date Recorded Not on file documented as of this encounter Plan of Treatment Not on filedocumented as of this encounter Visit Diagnoses Not on filedocumented in this encounter Care Teams Movement Assembler Relationship Specialty Start Date End Date Shiraz Simeon PA-C PCP - General 11/02/11 03/01/[address] [place] [address] [address] documented as of this encounter
--- OUTSIDE RECORDS SUMMARY | 2022-05-31 14:47 | XMS_ITS | Encounter Summary ---
:1945 Author Organization [employer] Address [address] [address] Care Team Providers Name Role Phone Unassigned, Provider Primary Care Provider Unavailable Encounter Details Date Type Department Care Team Description 06/17/1999 PN Conversion Only [place] [facility] Hector Giang MD [facility] [address] [address] [place] [address] [place] [address] [phone] Social History Tobacco Use Types Packs/Day Years Used Date Smoking Tobacco: Never Assessed Sex Assigned at Date Recorded Not on file documented as of this encounter Progress Notes Anuel Giang MD - 06/17/1999 12:01 AM CST Progress Notes signed by at 06/20/99 5687 Author: Anuel Giang MD Service: (none) Author Type: (none) Filed: 10/19/10 143 Note Time: 06/17/99 0001 Status: Signed Senior Inspector: Imr Conversion IMPRESSION: Upper respiratory infection. Tobacco dependency. SUBJECTIVE: Still having discomfort in the right side of the face. About 10 days ago, she went to Urgent Care with nasal congestion and right ear discomfort. They treated her with erythromycin. She had some vomiting but that stopped two days after the Urgent Care visit. Had a fever of up to 101 degrees, but does not think she has had any fevers for the last 5 to 7 days. There is still some discomfort in the right side of the face, but that seems to be better today. Still having some right ear discomfort. Still having some nasal congestion. There is still a cough, but sputum production has decreased. Also wants to try Zyban to help her stop smoking. She is on BuSpar but not on any other medicines. OBJECTIVE: T: 98.1. BP: 114/70. Wt: 148 pounds. Appears comfortable. EARS AND THROAT: Normal. NOSE: Slightly congested. Maxillary sinuses transilluminate normally. LUNGS: Clear to percussion and auscultation. ASSESSMENT: 1. Resolving upper respiratory infection (perhaps resolving sinusitis). 2. Tobacco dependency. PLAN: Discussed that there does not appear to be an indication for further antibiotics at this time. She is feeling better today and agrees. Suggested Sudafed for the right ear pressure; she prefers not to use that and says she will just wait until it improves. Does not think she needs any cough medicine. Prescribed Zyban 150 mg daily for 3 days; 150 mg twice daily for 3 months. She is aware that insurance may not pay for this. Also aware that success rate with this is 25-30%, which she wants to try it anyway. SYT:[id number] C: DOCUMENT: [id number] LY SUPPORT SPECIALIST Luiz Quiroz MD - 06/04/1999 12:01 AM CST Progress Notes signed by Luiz Quiroz MD at 12/18/99 1539 Author: Luiz Quiroz MD Service: (none) Author Type: Physician Filed: 10/19/10 1419 Note Time: 06/04/99 0001 Status: Signed Senior Inspector: Luiz Quiroz MD (Physician) IMPRESSION: Asthma or chronic obstructive pulmonary disease exacerbation. Bronchitis. Sinusitis. SUBJECTIVE: The patient is a 53-year-old woman who comes in with a cough for three days, nonproductive. No shortness of breath, wheezing. She generally smokes one-half pack of cigarettes a day but has cut down. She does report being sick about two weeks ago with a viral illness, that improved and then her was ill and she picked that up. Her fever has been as high as 99 to 100. She has facial pain, no conjunctivitis, bilateral plugged ears, nasal discharge that is colored, I believe. No nausea or vomiting which she does cough so hard that she gags. Some diarrhea for two days. No constipation, no dysuria. Her other current problem is her aurcvw-sy-liy recently and her is not handling it well. He has been shutting everyone off. ALLERGIES: NONE. MEDICATIONS: Nyquil at night to help her sleep. OBJECTIVE: T: 99.7. BP: 122/70. P: 80. R: 12. She looks comfortable. Extraocular muscles intact. Pupils equal, round and reactive to light and accommodation. Vessels and discs are normal. Tympanic membranes are translucent, light reflex and landmarks present. Nose with erythema and edema. Maxillary has pressure to palpation. Oropharynx benign. Neck is supple with a feeling of lymphadenopathy. Lungs have diffuse, harsh rhonchi without crackles or high pitched wheezes. Initial peak flow 140, 160, 160. Post Albuterol nebulization 225, 200, 200 with a repeat exam that is similar. Cardiac exam, normal S1, S2, regular rate and rhythm, no murmurs, rubs or gallops. Abdominal exam, bowel sounds present, soft, nontender. Chest x-ray to my reading was negative. ASSESSMENT: Asthma or chronic obstructive pulmonary disease exacerbation. Bronchitis. Sinusitis. PLAN: Erythromycin 400 mg four times a day for 10 days with food. Prednisone 40 mg a day for five days, Albuterol, Atrovent nebulizations four times a day. Albuterol two to four puffs as needed. Flovent 220, two puffs twice a day. Robitussin AC 10 ml q. 4h, lots of fluids. Quit smoking. Follow up with Dr. Giang in one to two weeks. CC: [id number] C: DOCUMENT: [id number] Conversion, [facility] - 07/13/1998 12:01 AM CST Progress Notes signed by at 02/05/012035 Author: [facility] Conversion Service: (none) Author Type: (none) Filed: 10/19/10 0876 Note Time: 07/13/98 0001 Status: Signed Senior Inspector: Namita Bledsoe IMPRESSION: Hematuria and dysuria. SUBJECTIVE: Patient is a 52-year-old female who is complaining of dysuria, frequency and urgency, as well as suprapubic tenderness for one day. She states she has had no fever and no back pain, and has a history of getting bladder infections once a year. Patient denies any abdominal pain. She has had a total hysterectomy. ALLERGIES: None. MEDICATIONS: None. The rest of the review of systems is negative. OBJECTIVE: Temperature 98.0. Patient has no costovertebral angle tenderness to palpation. Lungs clear. Cardiovascular regular rate and rhythm. Urinalysis shows large amount of blood with specific gravity being less than 1.005. She has 0-2 white blood cells, 10-25 red blood cells, and negative leukocyte esterase. ASSESSMENT: Hematuria and dysuria. PLAN: Patient is put on Macrobid 100 mg b.i.d. x five days. Pyridium 200 mg, one t.i.d. x two days, #6. We will culture her urine and have her follow up with her primary physician for further evaluation. [facility] SCHEDULED RESOURCE: [facility] Dora Gaston MD - 10/09/1997 12:01 AM CDT Progress Notes signed by Dora Rico MD at 03/22/98 1442 Author: Dora Rico MD Service: (none) Author Type: Physician Filed: 10/19/10 0413 Note Time: 10/09/97 0001 Status: Signed Senior Inspector: Dora Rico MD (Physician) IMPRESSION: 1. Sinusitis. 2. Ceruminosis. SUBJECTIVE: A 52-year-old white female with the complaint of a sore throat for the past 24 hours. She has been coughing and had a runny nose. Also has some right ear pain. Sleep was disrupted last night. Adverse Drug Reactions: None. Medications: BuSpar. OBJECTIVE: T: 98. P: 76. R: 18. BP: 110/72. TMs are obscured by cerumen bilaterally. After an ear wash, there is no obvious otitis media. She has purulent rhinorrhea and a purulent postnasal drip. No lymphadenopathy is noted. Chest shows some scattered rhonchi. ASSESSMENT: 1. Sinusitis. 2. Ceruminosis. PLAN: Amoxicillin 500 mg 1 t.i.d. #30 along with symptomatic care. giovanni Gayatri Wiggins MD - 07/05/1997 12:01 AM CST Progress Notes signed by Gayatri Wiggins MD at 05/10/02 0310 Author: Gayatri Wiggins MD Service: (none) Author Type: Physician Filed: 10/19/10 0239 Note Time: 07/05/97 0001 Status: Signed Senior Inspector: Gayatri Wiggins MD (Physician) IMPRESSION: No dictation required. Sinusitis. SUBJECTIVE: N/A. Shruti Enrique. OBJECTIVE: N/A ASSESSMENT: N/A PLAN: Amoxicillin. lap LY SUPPORT SPECIALIST Anuel Giang MD - 04/16/1997 12:01 AM CDT Progress Notes signed by at 04/22/97 1152 Author: Anuel Giang MD Service: (none) Author Type: (none) Filed: 10/19/10 0132 Note Time: 04/16/97 0001 Status: Signed Senior Inspector: Namita Conversion IMPRESSION: 1. Anxiety. 2. Breast cancer screening. 3. Status post hysterectomy. SUBJECTIVE: Here because of anxiety. Also is due for a breast check. She is on BuSpar 10 mg 3 times daily. Still feels anxious. Has trouble sleeping. Wondering if there is anything else to do. Would also like to stop smoking. Has not had much success with Nicorette gum in the past. Has undergone hysterectomy. Used to be on Premarin but has not resumed it after it ran out. Last tetanus booster was in 1988. OBJECTIVE: Wt: 150 lb. BP: 110/70. Breasts: No masses. ASSESSMENT: 1. Anxiety. Still symptomatic on BuSpar. 2. Normal breast exam. 3. Status post hysterectomy. PLAN: Flu vaccine. Since she is already on BuSpar, I am not certain what to do next. Refer to Mental Health. Mammogram. Schedule flexible sigmoidoscopy. Cholesterol. Resume Premarin 0.625 mg daily. Return in 1 year for breast check. Does not need pelvic exams, since she has had a hysterectomy. Regarding smoking cessation, mentioned Zyban to her. However, it is conceivable that she might end up on Wellbutrin, or else she might end up on some other medication from the Mental Health Department where it would be better not to use the (??Zyban??), so I did not start Zyban today. I told her that we might be able to later, depending on what is decided on by the Mental Health Department. cc: Anuel Giang M.D., Internal Medicine, [facility] Aicha Chin MD - 01/07/1997 12:01 AM CDT Progress Notes signed by Aicha Lanier MD at 05/10/02 0310 Author: Aicha Lanier MD Service: (none) Author Type: Physician Filed: 10/19/10 0013 Note Time: 01/07/97 0001 Status: Signed Senior Inspector: Aicha Lanier MD (Physician) IMPRESSION: No dictation required. Urinary tract infection. Bactrim DS b.i.d. x three days, one refill. SUBJECTIVE: N/A OBJECTIVE: N/A ASSESSMENT: N/A PLAN: N/A [facility] Ladi [facility] - 11/28/1996 12:01 AM CDT Progress Notes signed by at 04/19/98 1840 Author: Namita Bledsoe Service: (none) Author Type: (none) Filed: 10/18/10 2346 Note Time: 11/28/96 0001 Status: Signed Senior Inspector: Namita Bledsoe IMPRESSION: Sinusitis. SUBJECTIVE: Complains of sinus symptoms with right-sided facial pressure, pain, and drainage. OBJECTIVE: Tender over the maxillary sinus. Throat is clear. Lungs are clear. ASSESSMENT: Sinusitis. PLAN: Amoxicillin 500 mg t.i.d. for a week. giovanni SCHEDULED RESOURCE: AICHA FLYNN MD LY SUPPORT SPECIALIST Jose Crain MD - 03/16/1996 12:01 AM CDT Progress Notes signed by Jose Crain MD at 04/20/96 1309 Author: Jose Crain MD Service: (none) Author Type: Physician Filed: 10/18/102047 Note Time: 03/16/96 0001 Status: Signed Senior Inspector: Jose Crain MD (Physician) IMPRESSION: Pneumonia. SUBJECTIVE: 50-year-old woman who has had pain in her ribs that started this morning. It hurts to take a deep breath. She also has some soreness in her left shoulder. She has had a respiratory illness for a couple of weeks. She feels a little out of breath. Temperature 97. Pulse 76. Respirations 16. Blood pressure 120/80. ALLERGIES: None. MEDICATIONS: None. OBJECTIVE: Lungs reveal some decreased breath sounds and rales in the left side. The remainder of her lungs are clear. Oropharynx clear. ENT otherwise unremarkable. Chest wall is nontender. Chest x-ray is done which shows linear infiltrate in the left base. ASSESSMENT: Pneumonia. PLAN: Amoxicillin 500 mg t.i.d. x 10 days. Robitussin AC for cough. She needs to follow up if not improving over the next 2-4 weeks. [facility] Gayatri Wiggins MD - 01/12/1996 12:01 AM CDT Progress Notes signed by Gayatri Wiggins MD at 05/10/02 0310 Author: Gayatri Wiggins MD Service: (none) Author Type: Physician Filed: 10/18/102011 Note Time: 01/12/96 0001 Status: Signed Senior Inspector: Gayatri Wiggins MD (Physician) IMPRESSION: No dictation required. Sinusitis. SUBJECTIVE: N/A OBJECTIVE: N/A ASSESSMENT: N/A PLAN: Treatment: Septra. Beconase nasal spray. giovanni Pravin Noble - 01/07/1996 12:01 AM CDT Progress Notes signed by Pravin Ho DO at 01/13/96 0952 Author: Pravin Ho DO Service: (none) Author Type: (none) Filed: 10/18/102008 Note Time: 01/07/96 0001 Status: Signed Senior Inspector: Pravin Ho DO (Physician) IMPRESSION: Sinusitis. SUBJECTIVE: This patient is seen complaining of pain in the area of the left cheek which radiates into the left ear and left upper teeth of several days' duration. Patient has also had some nasal and sinus congestion during this time. Her nasal discharge is colored. She has a past history of sinusitis. She admits to occasional tobacco use. She is uncertain whether she has fevers. Medications: None. Adverse Drug Reactions: None. OBJECTIVE: BP: 108/78. P: 84. R: 20. T: 96.8. Exam revealed the TMs to be normal bilaterally. There was rhinitis with tenderness over the left maxillary sinus. There was no redness or exudate in the throat. The neck was supple. ASSESSMENT: Sinusitis. PLAN: Patient was given a prescription for amoxicillin 500 mg q8h for 10 days. She was also given Vicodin 1-2 q4-6h prn pain #10. She was advised to use Sudafed as a decongestant and to stop smoking. john Adriana Mcneal MD - 08/14/1995 12:01 AM CST Progress Notes signed by Adriana Palmer MD at 05/10/02309 Author: Adriana Palmer MD Service: (none) Author Type: Physician Filed: 10/18/10 1845 Note Time: 08/14/95 0001 Status: Signed Senior Inspector: Adriana Palmer MD (Physician) IMPRESSION: No dictation required. This 49-year-old patient was diagnosed with a urinary tract infection. SUBJECTIVE: N/A OBJECTIVE: N/A ASSESSMENT: N/A PLAN: N/A john Pravin Noble - 06/14/1995 12:01 AM CST Progress Notes signed by Pravin Ho DO at 06/20/95 1304 Author: Pravin Ho DO Service: (none) Author Type: (none) Filed: 10/18/10 2607 Note Time: 06/14/95 0001 Status: Signed Senior Inspector: Pravin Ho DO (Physician) IMPRESSION: Upper respiratory infection. SUBJECTIVE: Shruti Enrique is a 49-year-old female who is seen complaining of fever, chills, myalgias, nasal congestion and non- productive cough of approximately two days duration. She states that her throat feels dry and sore from coughing. Medications: None. Allergies: None. OBJECTIVE: BP: 110/70. P: 80. R: 18. T: 98.2. Examination revealed the patient to be in no acute distress. There was rhinitis present. The tympanic membranes were normal bilaterally. There was minimal redness in the throat and no exudates. The lungs were clear bilaterally. ASSESSMENT: Upper respiratory infection. PLAN: The patient was given a prescription for Phenergan with codeine 1 tsp q. 6 h. p.r.n. cough, 4 ounces. He is to increase fluids and use Tylenol for fever. [id number] Leeroy Hernandez MD - 04/30/1995 12:01 AM CST Progress Notes signed by Leeroy Thorne MD at 05/05/95 0810 Author: Leeroy Thorne MD Service: (none) Author Type: Physician Filed: 10/18/10 3016 Note Time: 04/30/95 0001 Status: Signed Senior Inspector: Leeroy Thorne MD (Physician) IMPRESSION: Acute sinusitis, right maxillary. SUBJECTIVE: Shruti Enrique is a 49-year-old that enters today for sore throat and facial pain. This started over the last three days. She is coughing minimal amounts at this point. She is having moderate thick rhinorrhea, moderate right facial pain. She does smoke 1/2 pack of cigarettes per day. MEDICATIONS: She has used Dimetapp and aspirin for discomfort. ALLERGIES: Allergic to no known medication. No other underlying health problems. OBJECTIVE: T: 96.7 tympanic. P: 70 and regular. R: 16. BP: 108/70. Examination reveals a pleasant 49-year-old. The throat reveals moderate thick secretions of the posterior pharynx; otherwise, unremarkable. Glands are without adenopathy. TM's and canals are clear. Nares: Thick discharge is noted which is greenish from the right anterior nares. Mild tenderness noted to palpation of the right maxillary sinus. Otherwise, sinuses are nontender. Lungs are clear. ASSESSMENT: Acute sinusitis, right maxillary. PLAN: Force clear liquids. Start Septra DS one twice daily for ten days for infection. Reassess if not improving over five to seven days or call if other problems in the meanwhile. [id number] LY SUPPORT SPECIALIST documented in this encounter Plan of Treatment Not on filedocumented as of this encounter Procedures Procedure Name Priority Date/Time Associated Comments Diagnosis XR CHEST PA WITH Routine 06/04/1999 11:06 AM Resu lts for this LATERAL FAMILY SUPPORT SPECIALIST procedure are i n the results section. URINE CULTURE Routine 07/13/1998 12:44 PM Results for this FAMILY SUPPORT SPECIALIST procedure are i n the results section. URINALYSIS COMPLETE Routine 07/13/1998 8:28 AM Re sults for this HOLD CULTURE FAMILY SUPPORT SPECIALIST procedure are i n the results section. ANC RESULT Routine 03/16/1996 9:17 AM Results f or this CONVERSION DEFAULT CDT procedure are in ORDER the results section. ANC RESULT Routine 04/27/1994 9:00 AM Results f or this CONVERSION DEFAULT CDT procedure are in ORDER the results section. ANC RESULT Routine 09/07/1990 11:30 AM Results for this CONVERSION DEFAULT FAMILY SUPPORT SPECIALIST procedure are in ORDER the results section. documented in this encounter Results XR Chest PA With Lateral (06/04/1999 11:06 AM FAMILY SUPPORT SPECIALIST) Anatomical Region Laterality Modality Other Specimen (Source) Anatomical Location Collection Method / Collectio n Time Received Time / Laterality Volume Impressions 06/04/1999 11:06 AM FAMILY SUPPORT SPECIALIST : ?NORMAL CHEST. FINDINGS: ?CH1 ?THE CARDIOVASCULAR STRUCTURES APPE AR NORMAL. ?NO EVIDENCE OF ACTIVE PULMONARY DI SEASE. TECH-ID : ? OO TRANS-ID: Narrative 06/04/1999 11:06 AM FAMILY SUPPORT SPECIALIST CLINICAL DATA: ?DRY COUGH Procedure Note Aldo Joseph - 09/09/2016Formatting of t his note might be different from the original. CLINICAL DATA: DRY COUGH IMPRESSION : NORMAL CHEST. FINDINGS: CH1 THE CARDIOVASCULAR STRUCTURES APPEAR NO RMAL. NO EVIDENCE OF ACTIVE PULMONARY DISEASE . TECH-ID : OO TRANS-ID: Luiz Quiroz MD RAD GD Urine Culture (07/13/1998 12:44 PM FAMILY SUPPORT SPECIALIST) Analysis Performed At [facility] Time Signature Urine Culture SEE TEXT HP CONVERSION Comment: Patient: SHRUTI ENRIQUE Culture, Urine @ ?Collected: ?124 Source: Clean Ca ?Processed: ??[id number] ??[id number] ? SENS IV Final Report ------ ?[id number] ??1201 No growth @ = URINE CULTURE Performed at ??[address] [place], [place] ?[address] Specimen (Source) Anatomical Collection Method Collection Time Re ceived Time Location / / Volume Laterality 07/13/1998 12:44 PM FAMILY SUPPORT SPECIALIST Dora Rico MD LAB_1 Performing Organization Address [facility] Phon e Number HP CONVERSION (ABNORMAL) Urinalysis Complete Hold Culture (07/13/1998 8:28 AM FAMILY SUPPORT SPECIALIST) [facility] gist Method Time Signature U Specific <=1.005 1.005 - 25 HP CONVERSION [place] pH Urine 5.5 4.5 - 7.5 HP CONVERSION Protein Urine Negative Neg-Trac HP CONVERSION Glucose, Negative Neg-Trac HP CONVERSION Qualitative U Ketones Negative Negative HP CONVERSION U BILI Negative Negative HP CONVERSION Blood Urine Large (A) Negative HP CONVERSION Nitrite Urine Negative Negative HP CONVERSION Leukocyte Negative Negative HP CONVERSION Esterase Urine Urobilinogen Negative 0.2 - 1.0 HP CONVERSION Urine White Blood 0-2 0 - 3 /HPF HP CONVERSION Cells Urine Red Blood Cells 10-25 (A) 0 - 3 /HPF HP CONVERSION Urine Epithelial Cells Few Few /HPF HP CONVERSION Bacteria Urine Occassnl None HP CONVERSION (A) Specimen (Source) Anatomical Collection Method Collection Time Re ceived Time Location / / Volume Laterality 07/13/1998 8:28 AM FAMILY SUPPORT SPECIALIST Dora Rico MD LAB_1 Performing Organization Address [facility] Phon e Number HP CONVERSION Anc Result Conversion Default Order (03/16/1996 9:17 AM CDT) Anatomical Region Laterality Modality Other Specimen (Source) Anatomical Location Collection Method / Collectio n Time Received Time / Laterality Volume Narrative 03/16/1996 9:17 AM CDT CLINICAL DATA: ?LEFT LOWER RIB PAIN FINDINGS: ?COMPARING BACK TO 03/09/82, THERE IS SOME NEW BILATERAL LOWER LUNG FIELD ?DISCOID ATELECTASIS VS SOME INTERV AL FIBROTIC-TYPE CHANGES. ??LUNGS ?OTHERWISE APPEAR CLEAR. ??THE LATE RAL COSTOPHRENIC ANGLES ARE POORLY ?SEEN. ??HOWEVER, ON THE LATERAL EW, THE POSTERIOR COSTOPHRENIC ANGLES ?APPEAR CLEAR WITHOUT ANY APPRECIAB LE EFFUSION. ??THERE IS ALSO ?INDISTINCTNESS OF THE LEFT CARDIAC MARGIN WHICH IS CLEARLY SEEN ON THE ?PRIOR EXAM, CONSISTENT WITH SOME I NFILTRATE/ATELECTASIS OR FIBROTIC ?CHANGE IN THE LINGULA WELL. ??N O OTHER ABNORMALITY IS SEEN. ??WOULD ?RECOMMEND FOLLOW-UP TWO-VIEW CHEST X-RAY IN THE NEXT SEVERAL WEEKS TO ?DETERMINE IF THIS REPRESENTS ACUTE CHANGE VS SOME MORE CHRONIC ?PROCESS. ??DEFINITE RIB ABNORMALIT Y IS NOT VISUALIZED. TECH-ID : ? 46 TRANS-ID: ? LAP Procedure Note Max Clayton MD - 09/09/2016Format ting of this note might be different from the original. CLINICAL DATA: LEFT LOWER RIB PAIN FINDINGS: COMPARING BACK TO 03/09/82, THERE IS SOME NEW BILATERAL LOWER LUNG FIELD DISCOID ATELECTASIS VS SOME INTERVAL FI BROTIC-TYPE CHANGES. LUNGS OTHERWISE APPEAR CLEAR. THE LATERAL COS TOPHRENIC ANGLES ARE POORLY SEEN. HOWEVER, ON THE LATERAL VIEW, THE POSTERIOR COSTOPHRENIC ANGLES APPEAR CLEAR WITHOUT ANY APPRECIABLE EF FUSION. THERE IS ALSO INDISTINCTNESS OF THE LEFT CARDIAC STAN IN WHICH IS CLEARLY SEEN ON THE PRIOR EXAM, CONSISTENT WITH SOME INFILT RATE/ATELECTASIS OR FIBROTIC CHANGE IN THE LINGULA WELL. NO OTHER ABNORMALITY IS SEEN. WOULD RECOMMEND FOLLOW-UP TWO-VIEW CHEST X-RA Y IN THE NEXT SEVERAL WEEKS TO DETERMINE IF THIS REPRESENTS ACUTE WISDOM GE VS SOME MORE CHRONIC PROCESS. DEFINITE RIB ABNORMALITY IS NO T VISUALIZED. TECH-ID : 46 TRANS-ID: LAP Jose Crain MD RAD GD Anc Result Conversion Default Order (04/27/1994 9:00 AM CDT) Anatomical Region Laterality Modality Other Specimen (Source) Anatomical Location Collection Method / Collectio n Time Received Time / Laterality Volume Impressions 04/27/1994 9:00 AM CDT : ?NO MAMMOGRAPHIC EVIDENCE OF MALIGN DELICIA. ??RECOMMEND FOLLOW-UP ?MAMMOGRAM IN ONE YEAR. FINDINGS: ?MODERATE TO MARKED DENSITY OF THE BREAST PARENCHYMA. ??NO ?SUSPICIOUS MASSES OR CALCIFICATION S ARE SEEN. ??COMPARED WITH ?08/17/88 AND TAKING INTO ACCOUNT DI FFERENCES IN TECHNIQUE AND ?PROJECTION, I SEE NO SIGNIFICANT C HANGE. TECH-ID : ? OO TRANS-ID: ? LAP Narrative 04/27/1994 9:00 AM CDT SEVERITY: 1 CLINICAL DATA: ?ROUTINE Procedure Note Max Clayton MD - 09/09/2016Format ting of this note might be different from the original. SEVERITY: 1 CLINICAL DATA: ROUTINE IMPRESSION : NO MAMMOGRAPHIC EVIDENCE OF MALIGNANCY. RECOMMEND FOLLOW-UP MAMMOGRAM IN ONE YEAR. FINDINGS: MODERATE TO MARKED DENSITY OF THE BREAS T PARENCHYMA. NO SUSPICIOUS MASSES OR CALCIFICATIONS ARE SEEN. COMPARED WITH 08/17/88 AND TAKING INTO ACCOUNT DIFFERE NCES IN TECHNIQUE AND PROJECTION, I SEE NO SIGNIFICANT CHANGE . TECH-ID : OO TRANS-ID: LAP Anuel Giang MD RAD GD Anc Result Conversion Default Order (09/07/1990 11:30 AM FAMILY SUPPORT SPECIALIST) Anatomical Region Laterality Modality Other Specimen (Source) Anatomical Location Collection Method / Collectio n Time Received Time / Laterality Volume Narrative 09/07/1990 11:30 AM FAMILY SUPPORT SPECIALIST CLINICAL DATA: ?SX'S X1 WEEK,NASAL MISTI & NOW YELL OW DISCH W/BODY CHILLS FINDINGS: ?COMPLETE OPACIFICATION OF THE LEFT MAXILLARY ANTRUM CONSISTENT WITH ?SINUSITIS OF INDETERMINATE AGE. TECH-ID : ? 28 TRANS-ID: ? LAP Procedure Note Todd Ruggiero MD - 09/09/2016Form atting of this note might be different from the original. CLINICAL DATA: SX'S X1 WEEK,NASAL MISTI & NOW YELLOW DI MELI W/BODY CHILLS FINDINGS: COMPLETE OPACIFICATION OF THE LEFT MAXI LLARY ANTRUM CONSISTENT WITH SINUSITIS OF INDETERMINATE AGE. TECH-ID : 28 TRANS-ID: LAP Jae Knowles MD RAD GD documented in this encounter Visit Diagnoses Not on filedocumented in this encounter Care Teams Transit Coach Operator Relationship Specialty Start Date End Date Unassigned, Provider PCP - General 04/03/00 10/31/11 99 [place] [address] documented as of this encounter
--- OUTSIDE RECORDS SUMMARY | 2022-05-31 14:47 | XMS_ITS | Encounter Summary ---
:1945 [facility] Address [address] [address] Care Team Providers Name Role Phone Unassigned, Provider Primary Care Provider Unavailable Encounter Details Date Type Department Care Team Description 07/26/2004 Emergency Room External to External, [facility] [address] Social History Tobacco Use Types Packs/Day Years Used Date Smoking Tobacco: Never Assessed Sex Assigned at Date Recorded Not on file documented as of this encounter Progress Notes External, Provider - 07/26/2004 12:00 AM HORSE IDENTIFIER documented in this encounter Plan of Treatment Not on filedocumented as of this encounter Visit Diagnoses Not on filedocumented in this encounter Care Teams Spare Hand Relationship Specialty Start Date End Date Unassigned, Provider PCP - General 04/03/00 10/31/[address] [place] [address] documented as of this encounter
--- OUTSIDE RECORDS SUMMARY | 2022-05-31 14:47 | XMS_ITS | Encounter Summary ---
:1945 Author Organization [facility] Address [address] [place] [address] Care Team Providers Name Role Phone Shiraz Simeon PA-C Primary Care Provider Reason for Visit Reason Comments Critical Lab Result Encounter Details Date Type Department Care Team Description 11/08/2011 Telephone [facility]ty [facility] 4430 Vicky Rich MD Critical Lab Result Gastroenterology [address] [place] [address] [phone] Social History Tobacco Use Types Packs/Day Years Used Date Smoking Tobacco: Never Assessed Sex Assigned at Date Recorded Not on file documented as of this encounter Nursing Notes Radha Logan RN - 11/08/2011 2:00 PM CDT Pt. updated with information from . Vicky Rich MD - 11/08/2011 1:04 PM CDT Improved from 4.7 pretransfusion. Would start iron as we discussed this morning. If fatigue returns,should see PCP to recheck hgb and if low, may need more transfusions but PCP can arrange. Radha Logan, RN - 11/08/2011 11:19 AM CDT Lab reporting CRITICAL HGB of 7.7 documented in this encounter Plan of Treatment Not on filedocumented as of this encounter Visit Diagnoses Not on filedocumented in this encounter Care Teams Hearing Aid Assembly Supervisor Relationship Specialty Start Date End Date Shiraz Simeon PA-C PCP - General 11/02/11 03/01/[address] [place] [id number] documented as of this encounter
--- OUTSIDE RECORDS SUMMARY | 2022-05-31 14:47 | XMS_ITS | Encounter Summary ---
:1945 Author Organization [facility] Address [address] [address] Care Team Providers Name Role Phone Unassigned, Provider Primary Care Provider Unavailable Encounter Details Date Type Department Care Team Description 03/15/1994 PN Conversion Only [facility] CONVERSION St holli Giang MD [address] [place] [address] Social History Tobacco Use Types Packs/Day Years Used Date Smoking Tobacco: Never Assessed Sex Assigned at Date Recorded Not on file documented as of this encounter Plan of Treatment Not on filedocumented as of this encounter Procedures Procedure Name Priority Date/Time Associated Comments Diagnosis CONVERSION DEFAULT Routine 03/14/1994 7:17 AM Res ults for this INTERFACE ORDER CDT procedure ar e in the results section. documented in this encounter Results Conversion Default Interface Order (03/14/1994 7:17 AM CDT) P athologist Signature PAP Smear See Detail HP CONVERSION Comment: VAGINAL SMEAR SPECIMEN ADEQUACY: ?? Satisfactory. ENDOCERVICAL CELLS: ??Absent; patient h as had a hysterectomy. Within Normal Limits (Negative). Specimen (Source) Anatomical Collection Method Collection Time Re ceived Time Location / / Volume Laterality 03/14/1994 7:17 AM CDT Anuel Giang MD LAB_1 Performing Organization Address City/State/ZIP Code Phon e Number HP CONVERSION documented in this encounter Visit Diagnoses Not on filedocumented in this encounter Care Teams Beam House Inspector Relationship Specialty Start Date End Date Unassigned, Provider PCP - General 04/03/00 10/31/[address] [place] [address] documented as of this encounter
--- OUTSIDE RECORDS SUMMARY | 2022-05-31 14:47 | XMS_ITS | Encounter Summary ---
:1945 Author [facility] Address [address] [place] [address] Care Team Providers Name Role Phone Unassigned, Provider Primary Care Provider Unavailable Encounter Details Date Type Department Care Team Description 12/21/2010 PN Conversion Only CONVERSION CONVERSION Social History Tobacco Use Types Packs/Day Years Used Date Smoking Tobacco: Never Assessed Sex Assigned at Date Recorded Not on file documented as of this encounter Plan of Treatment Not on filedocumented as of this encounter Visit Diagnoses Not on filedocumented in this encounter Care Teams Campus Coordinator Relationship Specialty Start Date End Date Unassigned, Provider PCP - General 04/03/00 10/31/11 [address] [place] [address] documented as of this encounter
--- OUTSIDE RECORDS SUMMARY | 2022-05-31 14:47 | XMS_ITS | Encounter Summary ---
:1945 Author Organization [employer] Address [address] [place] [address] Care Team Providers Name Role Phone Shiraz Simeon PA-C Primary Care Provider Encounter Details Date Type Department Care Team Description 11/03/2011 Hospital Encounter [facility] 650 0 Endoscopy Canceled [address] [place], [place] [address] Social History Tobacco Use Types Packs/Day Years Used Date Smoking Tobacco: Never Assessed Sex Assigned at Date Recorded Not on file documented as of this encounter Medications at Time of Discharge Medication Sig Dispensed Refills Start Date End Date gabapentin (AKA Take 1 capsule by 90 capsule 11 11/03/2011 NEURONTIN) 100 MG mouth 3 times daily. capsuleIndications: Restless legs syndrome (RLS) naproxen (aka NAPROSYN) Take 250 mg by mouth 0 11/16/2011 tabletIndications: 2 TIMES DAILY PC gastric ulcers PRN. Polyethylene Glycol 3350 Take by mouth for 2 4000 mL 0 11/08/2011 (PEG 3350 OR) doses. Take as directed in brochure. 2000 cc at 6pm evening before and 4-5 hours before leaving home day of exam sertraline (AKA ZOLOFT) Take 1 tablet by 30 tablet 12 201110/30/2012 50 MG tabletIndications: mouth daily (every Generalized anxiety 24 hours). Take 1/2 disorder (HRC) tab daily x 6 days, then 1 tab daily thereafter. omeprazole (PRILOSEC) 20 Take 1 capsule by 30 capsule 11 08/2011 11/13/2011 MG capsuleIndications: mouth daily (every Anemia 24 hours). Take 30 minutes before first meal each morning documented as of this encounter Miscellaneous Notes Medication History - Cameron Reddy MD - 11/03/2011 11:59 PM CDT INPATIENT MEDS Encounter Date: 11/03/11 naproxen (NAPROSYN) 250 mg tablet Start Date:-, End Date:11/16/11, Frequency:2 TIMES DAILY PC PRN *No Administrations Recorded documented in this encounter Plan of Treatment Not on filedocumented as of this encounter Visit Diagnoses Not on filedocumented in this encounter Care Teams Digital Content Marketing Manager Relationship Specialty Start Date End Date Shiraz Simeon PA-C PCP - General 11/02/11 03/01/16 [address] [place] [address] documented as of this encounter
--- OUTSIDE RECORDS SUMMARY | 2022-05-31 14:47 | XMS_ITS | Encounter Summary ---
:1945 Author Organization [employer] Address [address] [place] [address] Care Team Providers Name Role Phone Shiraz Simeon PA-C Primary Care Provider Reason for Visit Reason Comments Transfusion Encounter Details Date Type Department Care Team Description 11/06/2011 Hospital Encounter Specialty [facility] 39[facility] Infusion Center [address] [place], [place] [id number] Social History Tobacco Use Types Packs/Day Years Used Date Smoking Tobacco: Never Assessed Sex Assigned at Date Recorded Not on file documented as of this encounter Last Filed Vital Signs Vital Sign Reading Time Taken Comments Blood Pressure 128/60 11/06/2011 5:22 PM CDT Pulse 78 11/06/2011 5:22 PM CDT Temperature 36.9 ??C (98.4 ??F) 11/06/2011 5:22 PM CDT Respiratory Rate - - Oxygen Saturation - - Inhaled Oxygen Concentration - - Weight - - Height - - Body Mass Index - - documented in this encounter Discharge Instructions Patient InstructionsSchMark ovalle RN - 11/06/2011 2:21 PM CDT POST TRANSFUSION DISCHARGE INSTRUCTIONS Notify your physician if you experience any of the following symptoms within 24 hours of your transfusion: - Fever - Hives - Flushing - Chest pain - Headache - Shortness of breath - Back pain - Nausea or vomiting - Chills - Sudden changes in the way you feel For up to 2 weeks after transfusion: - Red or brown urine - Back pain documented in this encounter Medications at Time [...] 20 Take 1 capsule by 30 capsule 08/201111/13/2011 MG capsuleIndications: mouth daily (every Anemia 24 hours). Take 30 minutes before first meal each morning documented as of this encounter Progress Notes Mark Spears RN - 11/06/2011 5:00 PM CDT Received 2 units packed red blood cells. Tolerated transfusion well. Vital signs stable before, during, and after transfusion. No adverse reactions. Post- transfusion discharge instructions given. Patient verbalized understanding. Discharged in stable condition. documented in this encounter Miscellaneous Notes Medication History - Cameron Reddy MD - 11/06/2011 5:25 PM CDT INPATIENT MEDS Encounter Date: 11/06/11 0.9% sodium chloride bolus 250 mL Start Date:11/06/11, End Date:11/06/11, Frequency:ONCE *No Administrations Recorded 0.9% sodium chloride latex free syringe 10 mL Start Date:11/06/11, End Date:05/07/12, Frequency:PRN *No Administrations Recorded documented in this encounter Plan of Treatment Not on filedocumented as of this encounter Procedures Procedure Name Priority Date/Time Associated Comments Diagnosis TYPE AND SCREEN STAT 11/06/2011 1:10 PM Result s for this CDT procedure are i n the results section. PREP RBC LEUKOREDUCED STAT 11/06/2011 1:10 PM Results for this CDT procedure are i n the results section. documented in this encounter Results TYPE AND SCREEN (11/06/2011 1:10 PM CDT) P athologist Signature BB BLOOD TYPE A POS HP CONVERSION (BLOOD GROUP & RH) N/O BB ANTIBODY NEG HP CONVERSION SCREEN Specimen Anatomical Collection Method Collection Time Receive d Time (Source) Location / / Volume Laterality 11/06/2011 1:10 PM 2 1:16 CDT PM CDT Shiraz Simeon PA-C PN BLOOD BANK ORDERS Performing Organization Address [facility] Phon e Number HP CONVERSION PREP RBC LEUKOREDUCED (11/06/2011 1:10 PM CDT) Patholo gist Method Time Signature BBproduct RBC, LR HP CONVERSION BBunitnumber [id number] HP CONVERSION BBdispense transfused HP CONVERSION BBcoding ISBT HP CONVERSION BBproduct RBC, LR HP CONVERSION BBunitnumber [id number] HP CONVERSION BBdispense transfused HP CONVERSION BBcoding ISBT HP CONVERSION Comment: RBC, LR ? [id number] ?transfused ?? 11/06/11 ??14:09 RBC, LR ? [id number] ?transfused ?? 11/06/11 ??15:33 Specimen (Source) Anatomical Collection Method Collection Time Re ceived Time Location / / Volume Laterality 11/06/2011 1:10 PM CDT Shiraz Simeon PA-C PN BLOOD BANK ORDERS Performing Organization Address [facility] Phon e Number HP CONVERSION documented in this encounter Visit Diagnoses Not on filedocumented in this encounter Care Teams Air Gun Operator Relationship Specialty Start Date End Date Shiraz Simeon PA-C PCP - General 11/02/11 03/01/16 [address] [place] [address] documented as of this encounter
--- OUTSIDE RECORDS SUMMARY | 2022-05-31 14:47 | XMS_ITS | Encounter Summary ---
:1945 Author Organization [facility] Address [address] [address] Care Team Providers Name Role Phone Unassigned, Provider Primary Care Provider Unavailable Encounter Details Date Type Department Care Team Description 12/21/2010 PN Conversion Only [facility] [address] [address] [place] [address] Social History Tobacco Use Types Packs/Day Years Used Date Smoking Tobacco: Never Assessed Sex Assigned at Date Recorded Not on file documented as of this encounter Plan of Treatment Not on filedocumented as of this encounter Visit Diagnoses Not on filedocumented in this encounter Care Teams Operational Review Sergeant Relationship Specialty Start Date End Date Unassigned, Provider PCP - General 04/03/00 10/31/[address] [place] [address] documented as of this encounter
--- OUTSIDE RECORDS SUMMARY | 2022-05-31 14:47 | XMS_ITS | Encounter Summary ---
:1945 Author Organization [employer] Address [address] [place] [address] Care Team Providers Name Role Phone Shiraz Simeon PA-C Primary Care Provider Reason for Visit Reason Comments Critical Lab Result Encounter Details Date Type Department Care Team Description 11/02/2011 Telephone [facility] Shiraz Simeon PA-C Critical Lab Result [address] [place] [address] [place] [address] [phone] (Wo rk) Social History Tobacco Use Types Packs/Day Years Used Date Smoking Tobacco: Never Assessed Sex Assigned at Date Recorded Not on file documented as of this encounter Nursing Notes Alia Garcia LPN - 11/02/2011 1:06 PM CDT all is scheduled, pt notified. Shiraz Simeon PA-C - 11/02/2011 10:45 AM CDT Spoke with Shruti and gave her the test results and plan. She is open any time for the outpatient transfusion and scope scheduling. Advised about omeprazole, she will pickle processor the prescription and get started on that. Mame Lee - 11/02/2011 10:37 AM CDT Pt is calling back Shiraz Simeon PA-C - 11/02/2011 10:36 AM CDT Left message for Shruti to call re: lab results. Her hemoglobin is 4.7, requiring outpatient blood transfusion. Will also need to arrange colonoscopy and EGD. Would like to start her on omeprazole, as well. Orders placed and prescription printed to our pharmacy. Lucina Person - 11/02/2011 10:33 AM CDT Critical hemacrit of 15.8 per [facility]. Dalia calling. documented in this encounter Plan of Treatment Not on filedocumented as of this encounter Visit Diagnoses Diagnosis Anemia - Primary Anemia, unspecified documented in this encounter Care Teams Well Drill Operator Relationship Specialty Start Date End Date Shiraz Simeon PA-C PCP - General 11/02/11 03/01/[address] [place] [id number] documented as of this encounter
--- OUTSIDE RECORDS SUMMARY | 2022-05-31 14:47 | XMS_ITS | Encounter Summary ---
:1945 Author Organization [facility] Address [address], [place] [address] Care Team Providers Name Role Phone Shiraz Simeon PA-C Primary Care Provider Encounter Details Date Type Department Care Team Description 11/13/2011 Hospital Encounter [facility] 650 0 Endoscopy Anemia [address] [place], [place] [address] Social History Tobacco Use Types Packs/Day Years Used Date Smoking Tobacco: Never Assessed Sex Assigned at Date Recorded Not on file documented as of this encounter Last Filed Vital Signs Vital Sign Reading Time Taken Comments Blood Pressure 108/63 11/13/2011 4:15 PM CDT Pulse 64 11/13/2011 4:15 PM CDT Temperature - - Respiratory Rate 16 11/13/2011 4:15 PM CDT Oxygen Saturation 95% 11/13/2011 4:15 PM CDT Inhaled Oxygen Concentration - - Weight - - Height 160 cm (5' 3) 11/13/2011 3:00 PM CDT Body Mass Index - - documented in this encounter Medications at Time of Discharge Medication Sig Dispensed Refills Start Date End Date ferrous gluconate Take 1 tablet by 90 tablet 3 11/08/2011 0 01/04/2012 tabletIndications: mouth 3 times daily stomach upset (with meals). gabapentin (AKA Take 1 capsule by 90 capsule 11 11/03/2011 NEURONTIN) 100 MG mouth 3 times daily. capsuleIndications: Restless legs syndrome (RLS) naproxen (aka NAPROSYN) Take 250 mg by mouth 0 11/16/2011 tabletIndications: 2 TIMES DAILY PC gastric ulcers PRN. sertraline (AKA ZOLOFT) Take 1 tablet by [...] encounter Progress Notes Annelise Oquendo RN - 11/13/2011 3:53 PM CDT Patient tolerated procedure well vss documented in this encounter Procedure Notes Tyler Clemente MD - 11/13/2011 2:50 PM CDT Procedures signed by Tyler Clemente MD at 11/13/11 1450 Author: Tyler Clemente MD Service: (none) Author Type: Physician Filed: 11/13/11 1603 Note Time: 11/13/111449 Status: Signed Labour Market Economist: Tyler Clemente MD (Physician) Patient Name: Shruti Corbin Gender: F Procedure Date: 11/13/2011 02:50:00 PM Date of : 1945 Age: 66 Admit Type: Outpatient Note Status: Finalized Attending MD: Tyler Clemente MD Procedure: Upper GI endoscopy Indications: Iron deficiency anemia Providers: Tyler Clemente MD, Annelise Oquendo RN Referring MD: ZAHIDA Guardado Medicines: Midazolam 2 mg IV, [...] procedure were verified by the physician at 15:23 PM at 20:23 PM. Mental Status Examination: alert and oriented. Respiratory [...] well. Findings: The examined esophagus was normal. A large amount of food (residue) was found in the gastric fundus, in the gastric body and on the greater curvature of the gastric antrum. Few non-bleeding cratered gastric ulcers with no stigmata of bleeding were found in the gastric body and in the gastric antrum. The largest lesion was 20 mm in largest dimension. Biopsies were taken with a cold forceps for histology. A severe post-ulcer deformity was found in the duodenal bulb. Impression: - Normal esophagus. - A large amount of food (residue) in the stomach obscured visualization. - Multiple gastric ulcers with clean bases. A good portion of the antrum is ulcerated. Likely due to Naprosyn. This was biopsied. Significant scarring of stomach noted. - Duodenal deformity. Anatomy difficult to visualize due to retained food. Cannot R/O a gastroduodenal fistula/double pylorus. Recommendation: - Await pathology results. - No aspirin, ibuprofen, naproxen, or other non-steroidal anti-inflammatory drugs. - Use Prilosec (omeprazole) at 20 mg by mouth twice a day. - Repeat the upper endoscopy in 8 weeks to check healing. CPT4 Code(s): 53671, Upper gastrointestinal endoscopy including esophagus, stomach, and either the duodenum and/or jejunum as appropriate; with biopsy, single or multiple ICD9 Code(s): 531.90, Gastric ulcer, unspecified as acute or chronic, without mention of hemorrhage or perforation, without mention of obstruction 537.89, Other specified disorders of stomach and duodenum 280.9, Iron deficiency anemia, unspecified CPT Copyright 2010 [employer]. All Rights Reserved. The codes documented in this report are preliminary and upon improvement spec review may be revised to meet current compliance requirements. Tyler Clemente MD Signed Date: 11/13/2011 04:02:38 PM Number of Addenda: 0 This document has been electronically signed. Note initiated on 11/13/2011 02:49:27 PM documented in this encounter Miscellaneous Notes Medication History - Maureen, MD Cameron - 11/13/2011 11:59 PM CDT INPATIENT MEDS Encounter Date: 11/13/11 omeprazole (PRILOSEC) 20 mg capsule Start Date:11/13/11, End Date:10/30/12, Frequency:2 TIMES DAILY BEFORE MEALS *No Administrations Recorded benzocaine (HURRICAINE) 20 % spray Start Date:11/13/11, End Date:11/14/11, Frequency:PRN *No Administrations Recorded Fentanyl Citrate (PF) (SUBLIMAZE) injection 25-100 mcg Start Date:11/13/11, End Date:11/14/11, Frequency:PRN Taken Dose Action User Route Site Recorded Comment Reason 11/13/11 1553 100 mcg Given Annelise Oquendo RN Intravenous - 11/13/11 1553 - - 0.9% sodium chloride latex free syringe 10 mL Start Date:11/13/11, End Date:11/14/11, Frequency:PRN Taken Dose Action User Route Site Recorded Comment Reason 11/13/11 1552 10 mL Given Annelise Oquendo RN Intravenous - 11/13/11 1552 - - midazolam (VERSED) injection 0.5-2 mg Start Date:11/13/11, End Date:11/14/11, Frequency:PRN Taken Dose Action User Route Site Recorded Comment Reason 11/13/11 1553 2 mg Given Annelise Oquendo RN Intravenous - 11/13/11 1553 - - ondansetron (ZOFRAN) injection 4 mg Start Date:11/13/11, End Date:11/14/11, Frequency:PRN *No Administrations Recorded 0.9% sodium chloride latex free syringe 10 mL Start Date:11/13/11, End Date:11/14/11, Frequency:PRN Taken Dose Action User Route Site Recorded Comment Reason 11/13/111551 10 mL Given Annelise Oquendo RN Intravenous - 11/13/111551 - - meperidine (DEMEROL) injection 12.5-100 mg Start Date:11/13/11, End Date:11/14/11, Frequency:PRN *No Administrations Recorded midazolam (VERSED) injection 0.5-2 mg Start Date:11/13/11, End Date:11/14/11, Frequency:PRN *No Administrations Recorded ondansetron (ZOFRAN) injection 4 mg Start Date:11/13/11, End Date:11/14/11, Frequency:PRN *No Administrations Recorded benzocaine (HURRICAINE) 20 % spray Start Date:11/13/11, End Date:11/14/11, Frequency:PRN Taken Dose Action User Route Site Recorded Comment Reason 11/13/111551 1 spray Given Annelise Oquendo RN Mouth/Throat - 11/13/111551 - - Fentanyl Citrate (PF) (SUBLIMAZE) 100 mcg/2 mL (50 mcg/mL) injection Start Date:11/13/11, End Date:-, Frequency:- *No Administrations Recorded midazolam (VERSED) 1 mg/mL injection Start Date:11/13/11, End Date:-, Frequency:- *No Administrations Recorded midazolam (VERSED) 1 mg/mL injection Start Date:11/13/11, End Date:11/13/11, Frequency:- *No Administrations Recorded 0.9% sodium chloride latex free syringe Start Date:11/13/11, End Date:-, Frequency:- *No Administrations Recorded documented in this encounter Plan of Treatment Not on filedocumented as of this encounter Procedures Procedure Name Priority Date/Time Associated Comments Diagnosis ENDOSCOPY OBTAINED Routine 11/13/2011 3:56 PM Res ults for this ANATOMICAL PATH CDT procedure geoffrey leos in the results section. SURGICAL PATH, PARK Routine 11/13/2011 7:00 AM Re sults for this NICOLLET CDT procedure are i n the results section. documented in this encounter Results ENDOSCOPY OBTAINED ANATOMICAL PATH (11/13/2011 3:56 PM CDT) P athologist Signature Endo Tis See Path HP CONVERSION Specimen (Source) Anatomical Collection Method Collection Time Re ceived Time Location / / Volume Laterality 11/13/2011 3:56 PM CDT Tyler Clemente MD LAB_1 Performing Organization Address City/State/ZIP Code Phon e Number HP CONVERSION Pathology Report (11/13/2011 7:00 AM CDT) Patholo gist Method Time Signature Path: ?Final SURGICAL PATHOLOGY REP ORT HP CONVERSION Pathology #: [id number] ? Date Obtained: 11/13/2011 ?Date Received: 11/13/2011 DIAGNOSIS: A) Stomach, gastric antrum ulcer, biopsies: ?1. Benign ulcer bed and associated chronic active antr al gastritis. ?2. Goblet cell metaplasia. B) Stomach, fundus ulcer, biopsies: ?- ??Benign ulcer bed and associated chronic active gas tritis. COMMENT: Negative for Helicobacter-like organisms, specimens A and B (by immunohistochemistry). ?EDMUNDO SAWYER MD ? (electronic signatur e) ? 11/15/2011 ??15:0 9 CLINICAL NOTES: Anemia ORGAN/TISSUE SITE: Gastric antrum/Gastric fundus GROSS DESCRIPTION: A) Received in formalin labeled gastric antrum are multiple irregular ?portions of house-pink soft tissue aggregating 0.7 x 0.6 x 0.2 cm, ?which are submitted in toto in 1 cassette labeled 7864 A. B) Received in formalin labeled gastric fundus are 4 irregu lar ?portions of house-pink soft tissue averaging 0.3 x 0.2 x 0.2 cm, ?which are submitted in toto in 1 cassette labeled 7864 B. ?LUNMA MICROSCOPIC DESCRIPTION: A-B)The microscopic examination substantiates the diagnoses cited. CPT Codes: ?50696 x 2 ??15335 x 2 ? End of Report Specimen Anatomical Collection Method Collection Time Receive d Time (Source) Location / / Volume Laterality STOMACH STRUCTURE 11/13/2011 7:00 AM 10/30 7:00 / Unknown CDT AM CDT STOMACH STRUCTURE 11/13/2011 7:00 AM 10/30 7:00 / Unknown CDT AM CDT Tyler Clemente MD LAB_1 Performing Organization Address City/State/ZIP Code Phon e Number HP CONVERSION documented in this encounter Visit Diagnoses Diagnosis Anemia Anemia, unspecified documented in this encounter Care Teams Screw Cutter Relationship Specialty Start Date End Date Shiraz Simeon PA-C PCP - General 11/02/11 03/01/16 [address] [place] [address] documented as of this encounter
--- OUTSIDE RECORDS SUMMARY | 2022-05-31 14:47 | XMS_ITS | Encounter Summary ---
:1945 Author Organization [facility] Address [address] [place] [address] Care Team Providers Name Role Phone Shiraz Simeon PA-C Primary Care Provider Reason for Visit Reason Comments RESULTS, TEST Encounter Details Date Type Department Care Team Description 11/16/2011 Office Visit Marva Mccarty e Shiraz Simeon, Restless legs syndrome (RLS) (Primary Dx); [address] PA-C Chronic back pain; [place] [address] [address] NSAID-induced gastric ulcer; [phone] [place] [address] Iron deficiency anemia Social History Tobacco Use Types Packs/Day Years Used Date Smoking Tobacco: Never Assessed Sex Assigned at Date Recorded Not on file documented as of this encounter Last Filed Vital Signs Vital Sign Reading Time Taken Comments Blood Pressure 104/62 11/16/2011 1:27 PM CDT Pulse 68 11/16/2011 1:27 PM CDT Temperature - - Respiratory Rate - - Oxygen Saturation - - Inhaled Oxygen Concentration - - Weight 45.8 kg (101 lb) 11/16/2011 1:27 PM CDT Height - - Body Mass Index 17.89 11/13/2011 3:00 PM CDT documented in this encounter Progress Notes Shiraz Simeon PA-C - 11/16/2011 2:23 PM CDT SUBJECTIVE: This 66 y.o. female presents today with the following concern(s): Follow up after initial visit for anxiety, fatigue, and RLS. She is now s/p blood transfusion for profound iron-deficiency anemia. Had colonoscopy and EGD in work-up. Iron deficiency anemia - Shiraz Simeon PA-C 11/16/11 02:11 PM Signed Hemoglobin went from 4.7 to 7.7 after transfusion, and she is now taking and tolerating ferrous gluconate 325 mg three times daily. She feels improvement in energy. Colonoscopy was normal, while EGD showed multiple gastric ulcerations, the largest 20 mm, likely due to NSAID use for back pain. Instructed to increase her omeprazole to 20 mg twice daily prior to morning and evening meals, and to eliminate NSAID use. She has done so, and has noticed that her stomach feels better. Interestingly, states today that her daughter has celiac disease. Given the severity of her anemia, and the fact that she has never been able to gain weight no matter how much she eats, screening for celiac is imperative. Sheis agreeable. Chronic back pain - Shiraz Simeon PA-C 11/16/11 02:13 PM Signed Was taking Naproxen 250 mg twice daily as needed for back pain. Low back pain is worse when she has been inactive, better when she is up and moving around. Does not require medication daily, but at least 3 days per week. Now that she can no longer take NSAIDs, she is wondering what I could substitute for pain control when needed. Acetaminophen has not been effective. Denies pain that wakes her from sleep, radicular symptoms into groin or lower extremities. NSAID-induced gastric ulcer - Shiraz Simeon PA-C 11/16/11 02:13 PM Signed She will go in for repeat EGD in 7-8 weeks. Will continue twice daily PPI and thrice daily iron supplementation in the interim. Restless legs syndrome (RLS) - Shiraz Simeon PA-C 11/16/11 02:14 PM Signed Has increased to 200 mg gabapentin twice daily to prevent RLS symptoms in the evening and overnight.Feels that this dosage is appropriate, no adverse effects, would like a new prescription reflecting the change. Discussed that as her hemoglobin and ferritin levels improve, it is very likely that her RLS symptoms will improve, as well. Generalized anxiety disorder - Shiraz Simeon PA-C 11/16/11 02:15 PM Signed Started taking the full 50 mg sertraline tablet a couple of days ago, tolerating well without adverse effects. Feels a bit better in terms of her anxiety. Past Medical History: Patient Active Problem List Diagnoses Code ??? Generalized anxiety disorder 300.02 ??? Restless legs syndrome (RLS) 333.94 ??? Chronic back pain 724.5AW ??? Iron deficiency anemia 280.9AM ??? NSAID-induced gastric ulcer 531.90V Adverse Drug Reactions: has no known allergies. Medications: has a current medication list which includes ferrous gluconate, gabapentin, omeprazole,sertraline, and tramadol. Tobacco History: reports that she has been smoking Cigarettes. She has been smoking about .5 packs per day. She has never used smokeless tobacco. Alcohol History: reports that she does not drink alcohol. Marital History: , safe relationship OBJECTIVE: Vital Signs: BP 104/62 Pulse 68 Wt 101 lb (45.813 kg) General appearance: alert, cooperative, no distress, appears stated age and Skin: Still a bit pale, but has more color in her face than at last visit. ASSESSMENT/PLAN: Shruti was seen today for results (test). Diagnoses and associated orders for this visit: Restless legs syndrome (rls) - Increase: gabapentin (NEURONTIN) 100 mg capsule; Take 2-3 capsules by mouth 2 TIMES DAILY AC PRN for Other. Chronic back pain - traMADol (ULTRAM) 50 mg tablet; Take 1 tablet by mouth every 6 hours as needed for Pain. - discussed purpose of this medication, how to take it, potential benefits, and potential adverse effects. She is on a low dose of SSRI, and takes pain medication for her back only 2-4 days/week, so little concern for serotonin syndrome; however, discussed signs and symptoms, and then need to contact me right away if noticing these. - may use acetaminophen as needed in addition, heat and ice. - if this is ineffective, if she finds she is taking it daily, and/or if she does not tolerate it, will let me know and would switch to Tyl #3. Nsaid-induced gastric ulcer - reinforced no NSAID use now and going forward. - continue twice daily omeprazole. - repeat EGD in 7-8 weeks. Iron deficiency anemia - Hemoglobin; Future - Tissue Transglutaminase Ab IgA; Future - continue thrice daily ferrous gluconate, plan to recheck Hgb and ferritin in 3 months again. The patient was discharged ambulatory and in stable condition. *SH~DNS~SOAP Total appointment time: 25 minutes. Total counseling time on the above-mentioned topics: 20 minutes. documented in this encounter Miscellaneous Notes Assessment & Plan Note - Shiraz Smieon PA-C - 11/16/2011 2:15 PM CDT Started taking the full 50 mg sertraline tablet a couple of days ago, tolerating well without adverse effects. Feels a bit better in terms of her anxiety. Assessment & Plan Note - Shiraz Simeon PA-C - 11/16/2011 2:14 PM CDT Has increased to 200 mg gabapentin twice daily to prevent RLS symptoms in the evening and overnight.Feels that this dosage is appropriate, no adverse effects, would like a new prescription reflecting the change. Discussed that as her hemoglobin and ferritin levels improve, it is very likely that her RLS symptoms will improve, as well. Assessment & Plan Note - Shiraz Simeon PA-C - 11/16/2011 2:13 PM CDT She will go in for repeat EGD in 7-8 weeks. Will continue twice daily PPI and thrice daily iron supplementation in the interim. Assessment & Plan Note - Shiraz Simeon PA-C - 11/16/2011 2:13 PM CDT Was taking Naproxen 250 mg twice daily as needed for back pain. Low back pain is worse when she has been inactive, better when she is up and moving around. Does not require medication daily, but at least 3 days per week. Now that she can no longer take NSAIDs, she is wondering what I could substitute for pain control when needed. Acetaminophen has not been effective. Denies pain that wakes her from sleep, radicular symptoms into groin or lower extremities. Assessment & Plan Note - Shiraz Simeon PA-C - 11/16/2011 2:11 PM CDT Hemoglobin went from 4.7 to 7.7 after transfusion, and she is now taking and tolerating ferrous gluconate 325 mg three times daily. She feels improvement in energy. Colonoscopy was normal, while EGD showed multiple gastric ulcerations, the largest 20 mm, likely due to NSAID use for back pain. Instructed to increase her omeprazole to 20 mg twice daily prior to morning and evening meals, and to eliminate NSAID use. She has done so, and has noticed that her stomach feels better. Interestingly, states today that her daughter has celiac disease. Given the severity of her anemia, and the fact that she has never been able to gain weight no matter how much she eats, screening for celiac is imperative. Sheis agreeable. documented in this encounter Plan of Treatment Not on filedocumented as of this encounter Visit Diagnoses Diagnosis Restless legs syndrome (RLS) - Primary Chronic back pain Backache, unspecified NSAID-induced gastric ulcer Gastric ulcer, unspecified as acute or c hronic, without mention of hemorrhage, perforation, or obstruction Iron deficiency anemia Iron deficiency anemia, unspecified documented in this encounter Care Teams Physical Plant Employee Relationship Specialty Start Date End Date Shiraz Simeon PA-C PCP - General 11/02/11 03/01/16 [address] [place] [address] documented as of this encounter
--- OUTSIDE RECORDS SUMMARY | 2022-05-31 14:47 | XMS_ITS | Encounter Summary ---
:1945 Author Organization [employer] Address [address] [place] [address] Care Team Providers Name Role Phone Nette Simeon PA-C Primary Care Provider Encounter Details Date Type Department Care Team Description 11/02/2011 Lab Visit [facility] Restless legs syndrome (RLS) ; [address] Heart palpitations; [place] [address] Malaise and fatigue; [phone] Generalized anx iety disorder Social History Tobacco Use Types Packs/Day Years Used Date Smoking Tobacco: Never Assessed Sex Assigned at Date Recorded Not on file documented as of this encounter Plan of Treatment Not on filedocumented as of this encounter Procedures Procedure Name Priority Date/Time Associated Diagnosis Comme nts TSH AND FREE T4 (FRT4 Routine 11/02/2011 9:46 AM Heart p alpitations Results for this IF TSH ABNORM) CDT Malaise and fatigue proced ure are in the results section. CREATININE / GFR Routine 11/02/2011 9:46 AM Malaise and fatigu e Results for this CDT procedure are i n the results section. COMPLETE BLOOD Routine 11/02/2011 9:46 AM Restless legs Result s for this COUNT-W/DIFF CDT syndrome (RLS) procedure are in Heart palpitatio ns the results Malaise and fatigue section. DIFFERENTIAL Routine 11/02/2011 9:46 AM Results f or this CDT procedure are i n the results section. C-REACTIVE PROTEIN Routine 11/02/2011 9:46 AM Malaise and fati amina Results for this CDT procedure are i n the results section. ALT (SGPT) Routine 11/02/2011 9:46 AM Malaise and fatigue Re sults for this CDT procedure are i n the results section. AST Routine 11/02/2011 9:46 AM Malaise and fatigue Re sults for this CDT procedure are i n the results section. CALCIUM Routine 11/02/2011 9:46 AM Generalized anxiety Re sults for this CDT disorder procedure are i n the results section. BUN Routine 11/02/2011 9:46 AM Malaise and fatigue Re sults for this CDT procedure are i n the results section. ESR Routine 11/02/2011 9:46 AM Malaise and fatigue Re sults for this CDT procedure are i n the results section. URINALYSIS ROUTINE, Routine 11/02/2011 9:45 AM Malaise and fat igue Results for this MICRO/CULTURE IF POS CDT procedu re are in the results section. documented in this encounter Results (ABNORMAL) Differential (11/02/2011 9:46 AM CDT) Component Value Ref Test Analysis Performed At [facility] gist Range Method Time Signature Absolute 10.1 (H) 1.8 - HP CONVERSION Neutrophils 8.0 k/cmm Absolute 1.5 1.1 - HP CONVERSION Lymphocytes 4.0 k/cmm Absolute Monocytes 1.0 (H) 0.2 - HP CONVERSI ON 0.8 k/cmm Absolute 0.1 0.0 - HP CONVERSION Eosinophils 0.5 k/cmm Absolute Basophils 0.4 (H) 0.0 - HP CONVERSI ON 0.2 k/cmm Platelet Estimate Increased HP CONVERSIO N Anisocytosis Marked (A) HP CONVERSION Hypochromia Moderate (A) HP CONVERSION Microcytosis Slight HP CONVERSION Poikilocytosis Slight HP CONVERSION Polychromasia Slight HP CONVERSION Elliptocytes Few (A) HP CONVERSION Tear Drop Cells Few (A) HP CONVERSION Target Cells Few (A) HP CONVERSION Specimen Anatomical Collection Method Collection Time Receive d Time (Source) Location / / Volume Laterality 11/02/2011 9:46 AM 2 2:47 CDT PM CDT Narrative HP CONVERSION - 11/02/2011 4:40 PM CDT .called critical HCT of 15.8 and HGB of 4.7 to EDWARD RICHARD,.11/02/2011,15:34, by [facility].Critical HCT 15.8 called,read b ack by natalie VerdugoanFamMkenyon,.11/02/2011,10:34, by TRUGL Nette Simeon PA-C LAB_1 Performing Organization Address [facility] Code Phon e Number HP CONVERSION (ABNORMAL) C-Reactive Protein (11/02/2011 9:46 AM CDT) athologist Signature CRP 2.1 (H) 0.0 - 0.9 HP CONVERSION mg/dL Specimen Anatomical Collection Method Collection Time Receive d Time (Source) Location / / Volume Laterality 11/02/2011 9:46 AM 2 2:45 CDT PM CDT Narrative HP CONVERSION - 11/02/2011 3:22 PM CDT .Critical HCT 15.8 called,read back by natalie Thomas EaganFaDorcas,.11/02/2011,10:34, by TRUGL Nette Simeon PA-C LAB_1 Performing Organization Address [facility] Phon e Number HP CONVERSION (ABNORMAL) ESR (11/02/2011 9:46 AM CDT) [facility] gist Method Time Signature Sedimentation Rate 73 (H) 0 - 20 HP CONVERSI ON mm/hr Specimen Anatomical Collection Method Collection Time Receive d Time (Source) Location / / Volume Laterality 11/02/2011 9:46 AM 2 9:46 CDT AM CDT Narrative HP CONVERSION - 11/02/2011 10:36 AM CDT Performed at [facility], [address] [place] [address] .Critical HCT 15.8 called,read back by natalie Verdugoa nFamMed,.11/02/2011,10:34, by TRUGL Nette Simeon PA-C LAB_1 Performing Organization Address [facility] Phon e Number HP CONVERSION AST (11/02/2011 9:46 AM CDT) [facility] gist Method Time Signature Aspartate 17 0 - 45 HP CONVERSION Aminotransferase U/L Specimen Anatomical Collection Method Collection Time Receive d Time (Source) Location / / Volume Laterality 11/02/2011 9:46 AM 2 CDT 12:11 PM CDT Narrative HP CONVERSION - 11/02/2011 3:23 PM CDT Performed at [facility], [address] [place] [address] .Critical HCT 15.8 called,read back by natalie Thomas,.11/02/2011,10:34, by TRUGL Nette Simeon PA-C LAB_1 Performing Organization Address [facility]/ZIP Code Phon e Number HP CONVERSION ALT (SGPT) (11/02/2011 9:46 AM CDT) [facility] gist Method Time Signature Alanine 9 4 - 55 HP CONVERSION Aminotransferase U/L Specimen Anatomical Collection Method Collection Time Receive d Time (Source) Location / / Volume Laterality 11/02/2011 9:46 AM 2 CDT 12:11 PM CDT Narrative HP CONVERSION - 11/02/2011 3:23 PM CDT Performed at [facility], [address] [place] [address] .Critical HCT 15.8 called,read back by natalie Thomas,.11/02/2011,10:34, by TRUGL Nette Simeon PA-C LAB_1 Performing Organization Address City/[facility] Phon e Number HP CONVERSION Creatinine / GFR (11/02/2011 9:46 AM CDT) athologist Signature Creatinine 0.8 0.4 - 1.3 HP CONVERSION Serum mg/dL [...] Time (Source) Location / / Volume Laterality 11/02/2011 9:46 AM 2 CDT 12:11 PM CDT Narrative HP CONVERSION - 11/02/2011 3:23 PM CDT Performed at [facility], [address] [place] [address] .Critical HCT 15.8 called,read back by natalie Thomas,.11/02/2011,10:34, by TRUGL Nette Simeon PA-C LAB_1 Performing Organization Address [facility] Phon e Number HP CONVERSION BUN (11/02/2011 9:46 AM CDT) athologist Signature Blood Urea 20 5 - 26 HP CONVERSION Nitrogen mg/dL Specimen Anatomical Collection Method Collection Time Receive d Time (Source) Location / / Volume Laterality 11/02/2011 9:46 AM 2 CDT 12:11 PM CDT Narrative HP CONVERSION - 11/02/2011 3:23 PM CDT Performed at [facility], [address] [place] [address] .Critical HCT 15.8 called,read back by natalie Thomas,.11/02/2011,10:34, by TRUGL Nette Simeon PA-C LAB_1 Performing Organization Address [facility] Phon e Number HP CONVERSION Calcium (11/02/2011 9:46 AM CDT) athologist Signature Calcium 9.3 8.5 - 10.5 HP CONVERSION mg/dL Specimen Anatomical Collection Method Collection Time Receive d Time (Source) Location / / Volume Laterality 11/02/2011 9:46 AM 2 CDT 12:11 PM CDT Narrative HP CONVERSION - 11/02/2011 3:23 PM CDT Performed at [facility], [address] [place] [address] .Critical HCT 15.8 called,read back by natalie Thomas,.11/02/2011,10:34, by TRUGL Nette Simeon PA-C LAB_1 Performing Organization Address [facility] Phon e Number HP CONVERSION TSH AND FREE T4 (FRT4 IF TSH ABNORM) (11/02/2011 9:46 AM CDT) athologist Signature Thyroid 1.19 0.20 - HP CONVERSION Stimulating 4.50 mIU/L Hormone Specimen Anatomical Collection Method Collection Time Receive d Time (Source) Location / / Volume Laterality 11/02/2011 9:46 AM 2 2:45 CDT PM CDT Narrative HP CONVERSION - 11/02/2011 3:22 PM CDT .Critical HCT 15.8 called,read back by natalie Thomas,.11/02/2011,10:34, by DIANA Nette Simeon PA-C LAB_1 Performing Organization Address [facility] Phon e Number HP CONVERSION (ABNORMAL) Hemogram/Plts/Diff (11/02/2011 9:46 AM CDT) [facility] gist Method Time Signature White Blood 12.8 (H) 3.8 - 11.0 HP CONVERSION Cell Count k/cmm Red Blood Cell 2.33 (L) 3.70 - HP CONVERSION Count 5.20 m/cmm Hemoglobin 4.7 (CL) 11.8 - HP CONVERSION 15.5 g/dL Comment: Critical hgb result of 4.7 called to and read back by _nette simeon. ??11/02/2011 ??10:26 results repeated Hematocrit 15.8 (CL) 35.0 - 46.0 % HP CONVERSION Mean Corpuscular Volume 67.8 (L) 80.0 - 100.0 fL HP CONVERSION RDW 20.1 (H) 11.0 - 15.0 % HP CONVERSION Platelet Count 646 (H) 140 - 450 k/cmm HP CONVER ANUPAMA Specimen Anatomical Collection Method Collection Time Receive d Time (Source) Location / / Volume Laterality 11/02/2011 9:46 AM 2 9:46 CDT AM CDT Narrative HP CONVERSION - 11/02/2011 3:23 PM CDT Performed at [facility], [address] [place] [address], [place] [address] .called critical HCT of 15.8 and HGB of 4.7 to EDWARD RICHARD,.11/02/2011,15:34, by ELENA.Critical HCT 15.8 called,read back by natalie Verdugo,.11/02/2011,10:34, by DIANA Nette Simeon PA-C LAB_1 Performing Organization Address [facility]/State/ZIP Code Phon e Number HP CONVERSION URINALYSIS ROUTINE, MICRO/CULTURE IF POS (11/02/2011 9:45 AM CDT) [facility] Method Time Signature Urine Type Urine:clean HP CONVERSION cat Turbidity Clear Clear HP CONVERSION U BILI Negative Negative HP CONVERSION Blood Urine Negative Negative HP CONVERSION Glucose, Negative Neg-30 HP CONVERSION Qualitative U mg/dL Ketones Negative Negative HP CONVERSION Leukocyte Negative Negative HP CONVERSION Esterase Urine Nitrite Urine Negative Negative HP CONVERSION pH Urine 5.5 5.0 - 8.0 HP CONVERSION Protein Urine Negative Neg - Trace HP CONVERSION mg/dL U Specific 1.025 1.005 - HP CONVERSION [place] 1.030 Urobilinogen Negative Negative HP CONVERSION Urine Eu/dL Specimen Anatomical Collection Method Collection Time Receive d Time (Source) Location / / Volume Laterality Urine: 11/02/2011 9:45 AM 2 9:45 CDT AM CDT Narrative HP CONVERSION - 11/02/2011 10:33 AM CDT Performed at [facility], [address] [place] [address] [place] [address] .Critical HCT 15.8 called,read back by natalie Verdugo nFamMed,.11/02/2011,10:34, by DIANA Nette Simeon PA-C LAB_1 Performing Organization Address City/State/ZIP Code Phon e Number HP CONVERSION documented in this encounter Visit Diagnoses Diagnosis Restless legs syndrome (RLS) Heart palpitations Palpitations Malaise and fatigue Other malaise and fatigue Generalized anxiety disorder (HRC) Generalized anxiety disorder documented in this encounter Care Teams Electric Locomotive Crane Operator Relationship Specialty Start Date End Date Nette Simeon PA-C PCP - General 11/02/11 03/01/[address] [place] [address] [place] [address] documented as of this encounter
--- OUTSIDE RECORDS SUMMARY | 2022-05-31 14:47 | XMS_ITS | Encounter Summary ---
:1945 Author Organization [employer] Address [address] [place] [address] Care Team Providers Name Role Phone Shiraz Simeon PA-C Primary Care Provider Reason for Visit Reason Comments Appt. Needed Encounter Details Date Type Department Care Team Description 11/16/2011 Telephone [facility] [address] od[address] Clemente MD Appt. Needed Gastroenterology [address] [place] [address] [place] [address] [phone] Social History Tobacco Use Types Packs/Day Years Used Date Smoking Tobacco: Never Assessed Sex Assigned at Date Recorded Not on file documented as of this encounter Nursing Notes Elisa Rivera - 11/16/2011 1:58 PM CDT GI dept left vm message, schedule an 8 week f/u EGD. See form. documented in this encounter Plan of Treatment Not on filedocumented as of this encounter Visit Diagnoses Not on filedocumented in this encounter Care Teams Cage Tender Relationship Specialty Start Date End Date Shiraz Simeon PA-C PCP - General 11/02/11 03/01/16 [address] [place] [address] documented as of this encounter
--- OUTSIDE RECORDS SUMMARY | 2022-05-31 14:47 | XMS_ITS | Encounter Summary ---
:1945 Author Organization [facility] Address [address] [place] [address] Care Team Providers Name Role Phone Shiraz Simeon PA-C Primary Care Provider Encounter Details Date Type Department Care Team Description 11/08/2011 Lab Visit [facility] Anemia [address] [facility] [place] [address] Social History Tobacco Use Types Packs/Day Years Used Date Smoking Tobacco: Never Assessed Sex Assigned at Date Recorded Not on file documented as of this encounter Plan of Treatment Not on filedocumented as of this encounter Procedures Procedure Name Priority Date/Time Associated Diagnosis Comme nts HEMOGLOBIN, BLOOD Routine 11/08/2011 10:56 AM Anemia Res ults for this CDT procedure are i n the results section. documented in this encounter Results (ABNORMAL) Hemoglobin, Blood (11/08/2011 10:56 AM CDT) athologist Signature Hemoglobin 7.7 (CL) 11.8 - 15.5 HP CONVERSION g/dL Specimen Anatomical Collection Method Collection Time Receive d Time (Source) Location / / Volume Laterality 11/08/2011 10:56 11/08/2011 AM CDT 11:04 AM CDT Narrative HP CONVERSION - 11/08/2011 11:12 AM CDT .called critical HGB of 7.7 to EDWARD Lui, 11/08/2011,11:18, by [facility] Vicky Rich MD LAB_1 Performing Organization Address City/State/ZIP Code Phon e Number HP CONVERSION documented in this encounter Visit Diagnoses Diagnosis Anemia Anemia, unspecified documented in this encounter Care Teams Structural Architect Relationship Specialty Start Date End Date Shiraz Simeon PA-C PCP - General 11/02/11 03/01/16 [address] [place], [place] [address] documented as of this encounter
--- OUTSIDE RECORDS SUMMARY | 2022-05-31 14:47 | XMS_ITS | Encounter Summary ---
:1945 Author Organization [employer] Address [address] [place] [address] Care Team Providers Name Role Phone Shiraz Simeon PA-C Primary Care Provider Encounter Details Date Type Department Care Team Description 11/02/2011 Notes/Orders Specialty Center [address] V[address] Rich MD Endoscopy [address] [place] [address] [place] [address] [phone] Social History Tobacco Use Types Packs/Day Years Used Date Smoking Tobacco: Never Assessed Sex Assigned at Date Recorded Not on file documented as of this encounter Plan of Treatment Not on filedocumented as of this encounter Visit Diagnoses Not on filedocumented in this encounter Care Teams Blood Bank Specialist Relationship Specialty Start Date End Date Shiraz Simeon PA-C PCP - General 11/02/11 03/01/[address] [place] [id number] documented as of this encounter
--- OUTSIDE RECORDS SUMMARY | 2022-05-31 14:47 | XMS_ITS | Encounter Summary ---
:1945 Author Organization [employer] Address [address] [place] [address] Care Team Providers Name Role Phone Shiraz Simeon PA-C Primary Care Provider Reason for Visit Reason Comments Return Call Encounter Details Date Type Department Care Team Description 11/15/2011 Telephone [facility] Medicin e Shiraz Simeon PA-C Return Call [address] [place] [address] [place] [address] [phone] (Wo rk) Social History Tobacco Use Types Packs/Day Years Used Date Smoking Tobacco: Never Assessed Sex Assigned at Date Recorded Not on file documented as of this encounter Nursing Notes Zack Patel - 11/15/2011 1:57 PM CDT Pt. is scheduled for 1:30 tomorrow with Shiraz Shiraz Simeon PA-C - 11/15/2011 12:15 PM CDT Please help her schedule a 30-minute appointment with me to review lab results and answer further questions. Gaby Gordillo RN - 11/15/2011 11:50 AM CDT Pt is having achy lower back pain. Tylenol is not working and would like something stronger for backpain. Pt can not take anything with aspirin. Pt would like to know when should she come back for another evalutation and labs. Pt is taking gabapentin 100 tabs, 3 tabs a day and would like it increased to 4 tabs a day. Please advise. Pt would like to discuss her test results and questioned with the doctor. Please call the Pt (Shruti) [phone]. Okay to leave a message. Gloria Umanzor - 11/15/2011 11:23 AM CDT Pt is requesting a call from Shiraz Simeon or her nurse to discuss all of the recent tests she has had done that have been ordered by Shiraz. Pt would like to know results and she has questions regarding these as well. documented in this encounter Plan of Treatment Not on filedocumented as of this encounter Visit Diagnoses Not on filedocumented in this encounter Care Teams Ecg Technician Relationship Specialty Start Date End Date Shiraz Simeon PA-C PCP - General 11/02/11 03/01/[address] [place] [id number] documented as of this encounter
--- OUTSIDE RECORDS SUMMARY | 2022-05-31 14:47 | XMS_ITS | Encounter Summary ---
:1945 Author Organization [facility] Address [address] [place] [address] Care Team Providers Name Role Phone Unassigned, Provider Primary Care Provider Unavailable Encounter Details Date Type Department Care Team Description 09/19/1991 PN Conversion Only [facility]STAF[facility] CONVERSION St holli Giang MD [address] [place] [address] Social History Tobacco Use Types Packs/Day Years Used Date Smoking Tobacco: Never Assessed Sex Assigned at Date Recorded Not on file documented as of this encounter Plan of Treatment Not on filedocumented as of this encounter Procedures Procedure Name Priority Date/Time Associated Comments Diagnosis CONVERSION DEFAULT Routine 09/17/1991 8:34 AM Res ults for this INTERFACE ORDER SEAMLESS TUBE ROLLER procedure ar e in the results section. documented in this encounter Results Conversion Default Interface Order (09/17/1991 8:34 AM SEAMLESS TUBE ROLLER) P athologist Signature PAP Smear See Detail No normal HP CONVERSION range Comment: VAGINAL SMEAR Specimen Adequacy: Satisfactory for int erpretation. Within normal limits. No Endocervical cells seen. Numerous bacteria present. Specimen (Source) Anatomical Collection Method Collection Time Re ceived Time Location / / Volume Laterality 09/17/1991 8:34 AM SEAMLESS TUBE ROLLER Anuel Giang MD LAB_1 Performing Organization Address City/State/ZIP Code Phon e Number HP CONVERSION documented in this encounter Visit Diagnoses Not on filedocumented in this encounter Care Teams Supervisor Carding Relationship Specialty Start Date End Date Unassigned, Provider PCP - General 04/03/00 10/31/[address] [place] [id number] documented as of this encounter
--- OUTSIDE RECORDS SUMMARY | 2022-05-31 14:47 | XMS_ITS | Encounter Summary ---
:1945 Author Organization [facility] Address [address] [place] [address] Care Team Providers Name Role Phone Unassigned, Provider Primary Care Provider Unavailable Encounter Details Date Type Department Care Team Description 02/22/2004 Orders Only External to HP Unknown, Physici an [address] [place] [address] (Wo rk) Social History Tobacco Use Types Packs/Day Years Used Date Smoking Tobacco: Never Assessed Sex Assigned at Date Recorded Not on file documented as of this encounter Procedure Notes Unknown, Physician - 02/22/2004 12:00 AM CDTAssociated Order(s): OUTSIDE IMAGING documented in this encounter Plan of Treatment Not on filedocumented as of this encounter Procedures Procedure Name Priority Date/Time Associated Diagnosis Comme nts OUTSIDE IMAGING 02/22/2004 12:00 AM Resul ts for this CDT procedure are i n the results section. documented in this encounter Results OUTSIDE IMAGING (02/22/2004 12:00 AM CDT) Anatomical Region Laterality Modality Other Narrative 02/22/2004 12:00 AM CDT This result has an attachment that is no t available. A scan was deleted from the Results sect ion by [employer] Scan Conversion [[id number]] on 06/14/2010 at 8:46 PM (File: [id number] [id number];) Transcriptions Unknown, Physician - 02/22/2004 12:00 AM CDT Physician Unknown RAD_1 documented in this encounter Visit Diagnoses Not on filedocumented in this encounter Care Teams Splitter Operator Relationship Specialty Start Date End Date Unassigned, Provider PCP - General 04/03/00 10/31/[address] [place] [address] documented as of this encounter
--- OUTSIDE RECORDS SUMMARY | 2022-05-31 14:47 | XMS_ITS | Encounter Summary ---
:1945 Author Organization [employer] Address [address], [place] [address] Care Team Providers Name Role Phone Shiraz Simeon PA-C Primary Care Provider Encounter Details Date Type Department Care Team Description 11/08/2011 [facility] 650 0 Endoscopy Anemia [address] [place], [place] [id number] Social History Tobacco Use Types Packs/Day Years Used Date Smoking Tobacco: Never Assessed Sex Assigned at Date Recorded Not on file documented as of this encounter Last Filed Vital Signs Vital Sign Reading Time Taken Comments Blood Pressure 96/57 11/08/2011 10:43 AM CDT Pulse 76 11/08/2011 10:43 AM CDT Temperature - - Respiratory Rate 16 11/08/2011 10:43 AM CDT Oxygen Saturation 95% 11/08/2011 10:43 AM CDT Inhaled Oxygen Concentration - - Weight 46.3 kg (102 lb) 11/08/2011 9:47 AM CDT Height 160 cm (5' 3) 11/08/2011 9:47 AM CDT Body Mass Index 18.07 11/08/2011 9:47 AM CDT documented in this encounter Medications [...] documented as of this encounter Progress Notes Lynn Grant RN - 11/08/2011 10:54 AM CDT Stable recovery. Instructed to go to lab for Hgb check post procedure. documented in this encounter Procedure Notes Vicky Rich MD - 11/08/2011 9:25 AM CDT Procedures signed by Vicky Rich MD at 11/08/11924 Author: Vicky Rich MD Service: (none) Author Type: Physician Filed: 11/08/11 1100 Note Time: 11/08/11924 Status: Signed Coater Operator Insulation Board: Vicky Rich MD (Physician) Patient Name: Shruti Corbin Gender: Anne Procedure Date: 11/08/2011 09:25:00 AM Date of : 1945 Age: 66 Admit Type: Outpatient Note Status: Finalized Attending MD: Vicky Rich MD Procedure: Colonoscopy Indications: Anemia (microcytic, no iron studies) Providers: Vicky Rich MD, Luanne Vogel RN Referring MD: ZAHIDA Guardado Medicines: Midazolam 2 mg IV, Meperidine 50 mg IV Complications: No immediate complications. Estimated blood loss: [...] proposed procedure were verified by the physician and the nurse in the procedure room at 10:00 AM. Mental Status Examination: normal. Airway Examination: normal oropharyngeal airway and neck mobility. Respiratory Examination: clear to auscultation. CV Examination: normal. After reviewing the risks and benefits, the [...] patient was re-assessed after the procedure. After I obtained informed consent, the scope was passed under direct vision. Throughout the procedure, the patient's blood pressure, pulse, and oxygen saturations were monitored continuously. The [id number] colonoscope was introduced through the anus and advanced to the cecum, identified by appendiceal orifice & ileocecal valve. The colonoscopy was performed without difficulty. The patient tolerated the procedure well. The quality of the bowel preparation was fair. Findings: The perianal and digital rectal examinations were normal. The colon (entire examined portion) appeared normal. Impression: - The colon is normal. Recommendation: - Repeat colonoscopy in 10 years for screening purposes. - Check hemoglobin today. - Perform an upper GI endoscopy as previously scheduled. - Start iron replacement. CPT4 Code(s): 71860, Colonoscopy, flexible, proximal to splenic flexure; diagnostic, with or without collection of specimen(s) by brushing or washing, with or without colon decompression (separate procedure) ICD9 Code(s): 285.9, Anemia, unspecified CPT Copyright 2010 [employer]. All Rights Reserved. The codes documented in this report are preliminary and upon casting repairer review may be revised to meet current compliance requirements. Vicky Rich MD Signed Date: 11/08/2011 11:00:42 AM Number of Addenda: 0 This document has been electronically signed. Note initiated on 11/08/2011 09:24:30 AM documented in this encounter Miscellaneous Notes Medication History - Integration, Hp, MD - 11/08/2011 11:59 PM CDT INPATIENT MEDS Encounter Date: 11/08/11 ferrous gluconate (FERGON) 325 mg (37.5 mg iron) tablet Start Date:11/08/11, End Date:01/04/12, Frequency:3 TIMES DAILY WITH MEALS *No Administrations Recorded 0.9% sodium chloride latex free syringe 10 mL Start Date:11/08/11, End Date:11/09/11, Frequency:PRN Taken Dose Action User Route Site Recorded Comment Reason 11/08/11 1031 7 mL Given Luanne Vogel RN Intravenous - 11/08/11 1031 - - meperidine (DEMEROL) injection 12.5-100 mg Start Date:11/08/11, End Date:11/09/11, Frequency:PRN Taken Dose Action User Route Site Recorded Comment Reason 11/08/11 1031 50 mg Given Luanne Vogel RN Intravenous - 11/08/11 1032 - - midazolam (VERSED) injection 0.5-2 mg Start Date:11/08/11, End Date:11/09/11, Frequency:PRN Taken Dose Action User Route Site Recorded Comment Reason 11/08/11 1032 2 mg Given Luanne Vogel RN Intravenous - 11/08/11 1032 - - ondansetron (ZOFRAN) injection 4 mg Start Date:11/08/11, End Date:11/09/11, Frequency:ONCE PRN *No Administrations Recorded meperidine (DEMEROL) 100 mg/mL injection Start Date:11/08/11, End Date:-, Frequency:- *No Administrations Recorded midazolam (VERSED) 1 mg/mL injection Start Date:11/08/11, End Date:-, Frequency:- *No Administrations Recorded 0.9% sodium chloride latex free syringe Start Date:11/08/11, End Date:-, Frequency:- *No Administrations Recorded documented in this encounter Plan of Treatment Not on filedocumented as of this encounter Visit Diagnoses Diagnosis Anemia Anemia, unspecified documented in this encounter Care Teams Dip Tanker Relationship Specialty Start Date End Date Shiraz Simeon PA-C PCP - General 11/02/11 03/01/16 [address] [place] [address] documented as of this encounter
--- OUTSIDE RECORDS SUMMARY | 2022-05-31 14:47 | XMS_ITS | Encounter Summary ---
:1945 [facility] Address [address] [place] [address] Care Team Providers Name Role Phone Unassigned, Provider Primary Care Provider Unavailable Encounter Details Date Type Department Care Team Description 12/21/2010 Office Visit [facility] [place] [address] [address] [place] [address] [phone] (Wo rk) Social History Tobacco Use Types Packs/Day Years Used Date Smoking Tobacco: Never Assessed Sex Assigned at Date Recorded Not on file documented as of this encounter Progress Notes Miya Gonzalez MD - 12/21/2010 12:01 AM CDT Progress Notes signed by Miya Gonzalez MD at 12/29/10 1459 Author: Miya Gonzalez MD Service: (none) Author Type: Physician Filed: 12/29/10 1503 Note Time: 12/21/10 0001 Status: Signed Bonderite Operator: Miya Gonzalez MD (Physician) NAME: RONDA CORBIN MR#: [id number] ACCT: [id number] VISIT: [id number] DICTATING CLINICIAN: Miya Gonzalez MD CONFIRM #: [id number] LOC: 520 CLINIC PROGRESS NOTE DATE OF VISIT: 12/21/2010 : 1945 CHIEF COMPLAINT: Possible sinus infection, cough. HPI: This pleasant 65-year-old comes in today complaining of not feeling very well. The patient has had symptoms for the past 10 days. Mild upset stomach. She has been full of gas. Sinus pressure, but this postnasal drip is really getting into her intestines and bothering her. No diarrhea. She has not been vomiting. She has this left maxillary tenderness. Also, her ears feel somewhat full. PAST MEDICAL HISTORY: None. PAST SURGICAL HISTORY: Hysterectomy. MEDICATIONS: None. ALLERGIES: No known drug allergies. SOCIAL HISTORY: The patient is a cigarette smoker. OBJECTIVE: Temperature 98.6. Pulse 112. Respirations 28. Blood pressure 99/58. O2 sats 95% on room air. Tympanic membranes reveal bilateral cerumen impactions. These are washed out. Sinuses are tender in the left maxillary region. Oropharynx is pink and moist. Thick green postnasal drip. LUNGS: Clear. HEART: Regular. ABDOMEN: Soft, nontender. SKIN: Shows no rash or cyanosis. ASSESSMENT: 1. Sinusitis. 2. Ceruminosis. PLAN: Augmentin 875 one pill b.i.d. times 10 days. Rest, fluids, ibuprofen and Tylenol. Follow up if symptoms persist or worsen. The patient is in agreement with the plan. KMM:CRYSTAL C: CONFIRM #: [id number] documented in this encounter Plan of Treatment Not on filedocumented as of this encounter Visit Diagnoses Not on filedocumented in this encounter Care Teams Waste Collection Driver Relationship Specialty Start Date End Date Unassigned, Provider PCP - General 04/03/00 10/31/[address] [place] [id number] documented as of this encounter
--- OUTSIDE RECORDS SUMMARY | 2022-05-31 14:47 | XMS_ITS | Encounter Summary ---
:1945 Author Organization [email or web address] Address [address] [place] [address] Care Team Providers Name Role Phone Unassigned, Provider Primary Care Provider Unavailable Reason for Visit Reason Comments KIDNEY STONE Encounter Details Date Type Department Care Team Description 08/09/2000 Telephone Careline Pepper Acevedo RN KIDNEY STONE [address] [place], [place] [address] [phone] [place] [address] Social History Tobacco Use Types Packs/Day Years Used Date Smoking Tobacco: Never Assessed Sex Assigned at Date Recorded Not on file documented as of this encounter Nursing Notes 08/09/2000 11:59 PM CONTRACT ADMINISTRATION SPECIALIST >> PEPPER ACEVEDO Kirsten Aug 09, 2000 2:05 AM >> CALL RECEIVED. Contact: 54 year old,female hx of kidney stones now rt sided flank pain sudden onset now vomiting with pain no fever no hematuria to [facility] documented in this encounter Plan of Treatment Not on filedocumented as of this encounter Visit Diagnoses Not on filedocumented in this encounter Care Teams Ship'S Surveyor Relationship Specialty Start Date End Date Unassigned, Provider PCP - General 04/03/00 10/31/[address] [place] [phone] documented as of this encounter
[2022-05-31 15:10] LABS: Basophils Absolute Auto 0.02 K/uL (0.00-0.30); Basophils Percent Auto 0.2 % (0.0-3.0); Eosinophils Absolute Auto 0.01 K/uL (0.00-0.50); Eosinophils Percent Auto 0.1 % (0.0-7.0); Hematocrit 39.8 % (33.0-51.0); Hemoglobin* 12.7 gm/dL (12.0-16.0); Immature Granulocytes Abs Auto 0.08 K/uL (0.00-0.30); Immature Granulocytes Pct Auto 0.9 %; Lymphocytes Percent Auto 12.7 % (20-44); Mean Corpuscular HGB Conc 32 gm/dL (32-36); Mean Corpuscular Hemoglobin 28 pg (26-34); Mean Corpuscular Volume 88 fL (80-100); Monocytes Percent Auto 7.3 % (0.0-11.0); Neutrophils Percent Auto 78.8 % (42.0-72.0); Platelet Count* 268 K/uL (140-440); RDW Coefficient of Variation % 13.4 % (11.5-15.5)
[2022-05-31] MEDS: ONDANSETRON 2 MG/ML inj 4 MG IVP (15:10)
[2022-05-31] MEDS: 0.9 % SODIUM CHLORIDE 1000 ml 1,000 ML IV (15:10)
[2022-05-31 15:18] LABS: Slide Review Reflex No
[2022-05-31 15:20] LABS: Chloride* 109 mmol/L (96-114); Sodium* 141 mmol/L (135-149)
[2022-05-31 15:23] LABS: Creatinine* 0.9 mg/dL (0.5-1.5); Est. Creatinine Clearance* 38.29; Estimated Glomerular Filt Rate 67 ml/min
[2022-05-31 15:24] LABS: Blood Urea Nitrogen* 13 mg/dL (7-30); Calcium* 9.4 mg/dL (8.4-10.6); Carbon Dioxide* 21 mmol/L (20-32); Glucose* 110 mg/dL (60-115)
[2022-05-31 15:27] LABS: C Reactive Protein* 4.7 mg/dL (0.5-1.0)
[2022-05-31 15:32] LABS: NT Pro B Type NatriureticPept* 1010 PG/mL (0-450)
[2022-05-31 15:34] LABS: Potassium* 2.9 mmol/L (3.6-5.1)
[2022-05-31 15:45] LABS: PCR FLU A Negative PCR FLU A (Negative); PCR FLU B Negative PCR FLU B (Negative); PCR RSV Negative PCR RSV (Negative)
[2022-05-31 15:53] LABS: SARS PCR* POSITIVE SARS-CoV-2 (Negative)
--- NOTE | 2022-05-31 15:55 | ED.NURSE ---
Pt assisted to commode to provide UA. While assisting pt back to bed, pt's HR increased to ~147 bpm. Once pt was lying back in bed, pt HR gradually decreased back to mid-90's bpm. MD notified, repeat EKG done.
[2022-05-31] MEDS: POTASSIUM BICARB 25 MEQ EFFERVESCENT TAB 50 MEQ PO (16:00)
[2022-05-31 16:13] LABS: Appearance Urine Clear (Clear); Bilirubin Urine Negative (Negative); Blood Urine 2+ (Negative); Color Urine Yellow (Yellow); Glucose Urine Negative (Negative); Ketones Urine Negative (Negative); Leukocyte Esterase Urine Negative (Negative); Nitrite Urine Positive (Negative); Protein Urine Negative (Negative); Urobilinogen Urine 0.2 (0.2-1.0); pH Urine 5.5 (5.0-8.5)
[2022-05-31 16:23] LABS: RBC Urine 0-2 (0-2)
[2022-05-31 16:24] LABS: Bacteria Urine Moderate; WBC Urine 0-2 (0-5)
--- NOTE | 2022-05-31 16:29 | ED.NURSE ---
Pt assisted to sit up in bed to drink oral potassium. While sitting up, pt's HR noted to increase to approx 160 bpm. MD notified. Pt reported no discomfort and no SOB. MD arrived in room. Pt reclined back down in bed, HR gradually decreased back to ~100 bpm.
[2022-05-31 16:39] LABS: Magnesium* 1.9 mg/dL (1.5-2.6)
[2022-05-31] MEDS: 0.9 % SODIUM CHLORIDE 500 ML 500 ML IV (17:00)
[2022-05-31] MEDS: MAGNESIUM SULFATE 2 GM/50 ML PIGGYBACK IVPB (17:28)
--- NOTE | 2022-05-31 19:22 | W.PC.EDHO ---
Primary Language: Slovak Preferred Language: Orientation Status: [x] Alert & Oriented [] Slight Confusion [] Known Dx Dementia Transfers By: [x] Assist of 1 [] Assist of 2 [] Lift Active Medications Discontinued Medications Generic Name Dose Route Start Last Admin Trade Name Robyn PRN Reason Stop Dose Admin Sodium Chloride 1,000 mls @ 1,000 mls/hr 05/31/22 14:06 05/31/22 16:40 0.9 % Sodium Chloride 1000 Ml IV 05/31/22 15:05 Infused .Q1H ONE Infusion Sodium Chloride 500 mls @ 500 mls/hr 05/31/22 16:16 05/31/22 17:33 0.9 % Sodium Chloride 500 Ml IV 05/31/22 17:15 Infused .Q1H ONE Infusion Magnesium Sulfate 2 gm 05/31/22 16:58 05/31/22 17:28 Magnesium Sulfate 2 Gm/50 Ml Piggyback IVPB 05/31/22 16:59 2 gm ONCE ONE Administration Ondansetron HCl 4 mg 05/31/22 13:58 05/31/22 15:10 Ondansetron Odt 4 Mg Tab PO 05/31/22 13:59 Not Given ONCE ONE Ondansetron HCl 4 mg 05/31/22 14:06 05/31/22 15:10 Ondansetron 2 Mg/Ml Inj IVP 05/31/22 14:07 4 mg ONCE ONE Administration Potassium Bicarbonate 50 meq 05/31/22 15:53 05/31/22 16:00 Potassium Bicarb 25 Meq Effervescent Tab PO 05/31/22 15:54 50 meq ONCE ONE Administration Description of Symptoms ED Triage Present Problem Pt states she feels weak, SPENCER, cough, nauseous with Description nothing solid to eat x2 days but has been forcing herself to drink, denies vomiting. ED Triage Date of Onset of 05/27/22 Symptoms [place] Coma Scale [place] coma scale total score 15 Pain Pain Description [Generalized] Dull, Achy Pain Intensity [Generalized] 5 Pain Scale Used [Generalized] Numeric (1 - 10) IV Insertion/Site Date of IV Line Insertion [ 05/31/22 Right Antecubital] Oxygen Administration Pulse Oximetry 95 Pulse Oximetry 96 Pulse Oximetry 96 Pulse Oximetry 96 Pulse Oximetry 96 Pulse Oximetry 96 Pulse Oximetry 97 Pulse Oximetry 97 Pulse Oximetry 98 Pulse Oximetry 96 Pulse Oximetry 97 Pulse Oximetry 97 Pulse Oximetry 96 Pulse Oximetry 95 Pulse Oximetry 98 Pulse Oximetry 98 Pulse Oximetry 97 Pulse Oximetry 96 Pulse Oximetry 97 Pulse Oximetry 97 Pulse Oximetry 96 Pulse Oximetry 95 Pulse Oximetry 96 Oxygen Delivery Method Room Air
[2022-05-31] MEDS: LOPERAMIDE HCL 2 MG CAPSULE 4 MG PO (19:30)
--- NOTE | 2022-05-31 21:46 | PM.IMHP1 ---
Hospitalist- H&P: HPI History of Present Illness Time Seen by Provider: 22:00 Date Seen: 05/31/22 Chief complaint: Weak Diarrhea Narrative: Shruti Corbin is a 76 year old female who started having flu-like symptoms last . She noted lack of appetite and muscle aches at first. She has felt feverish, but this does not reflect on the thermometer. She's had intermittent mild headaches, no sore throat. In the last few days, she has become more weak, fatigued, low appetite and profuse diarrhea. She is feeling dehydrated. Review of Systems Status of ROS: Reports: 10 or more systems reviewed and unremarkable except as noted in History and below [facility] Medical History (Updated 05/31/22 @ 22:49 by Chio Joseph MD) Chronic back pain Controlled substance agreement signed Gastric ulcer Generalized anxiety disorder Iron deficiency anemia Nephrolithiasis Restless leg syndrome Surgical History (Updated 05/31/22 @ 21:41 by Chio Joseph MD) S/P YUNG-BSO Family History (Updated 05/31/22 @ 21:45 by Chio Joseph MD) Mother Cataract Osteoarthritis PUD (peptic ulcer disease) Brother No problems noted. Brother High cholesterol High blood pressure Retinal detachment Sister AAA (abdominal aortic aneurysm) Renal failure Family/Other Myocardial infarction Social History (Updated 05/31/22 @ 22:37 by Chio Joseph MD) Narrative: Quit smoking 1 year ago. Smoked 1/2-1ppd. Denies alcohol or recreational drugs. FULL CODE. Smoking Status: Former smoker Nicotine containing products detail: quit 1 year ago 2020 Second hand tobacco smoke exposure: No How often do you have a drink containing alcohol: never AUDIT-C Alcohol total score: 0 Non-prescribed substance use: denies use Caffeine: No Meds Home Medications and Allergies Home Medications Medication Instructions Recorded Confirmed Type ferrous sulfate 142 mg (45 mg 142 mg PO Q48H 05/31/22 05/31/22 History iron) tablet,extended release (Slow Fe) gabapentin 400 mg capsule See Rx Instructions .Route 05/31/22 05/31/22 History .COMPLEX PRN restless leg(s) omeprazole 20 mg capsule,delayed 20 mg PO DAILY 05/31/22 05/31/22 History release sertraline 100 mg tablet 100 mg PO DAILY 05/31/22 05/31/22 History tramadol 50 mg tablet 50 mg PO Q8H 05/31/22 05/31/22 History Allergies Allergy/AdvReac Type Severity Reaction Status Date / Time No Known Drug Allergies Allergy Verified 05/31/22 13:48 Exam Narrative: Exam Narrative: General: No acute distress. Awake alert oriented x3. HEENT: Normocephalic atraumatic, pupils equally round and reactive to light and accommodation. Oropharynx clear. Mucous membranes are slightly dry. No cervical lymphadenopathy, thyromegaly or carotid bruits. No JVD. Cardiovascular: Regular rate and rhythm. No murmurs, gallops, or rubs. Chest: No increased work of breathing. Clear to auscultation bilaterally. No crackles or wheezes. Abdomen: Bowel sounds present. Soft, nondistended, nontender. No hepatosplenomegaly or masses. Extremities: No edema, no cyanosis or clubbing. Skin: No jaundice, no pallor, no rashes. Neuro: There are no focal deficits. Cranial nerves 2-12 are intact. Extraocular movements are full. No nystagmus. No facial asymmetry. Tongue is midline. Peripheral vision and vision are grossly intact. Strength is 5/5 in all 4 extremities. Const: Vital Signs, click to edit/add: Vital Signs - 24 hr 05/31/22 13:42 05/31/22 15:44 05/31/22 15:45 Temperature 97.7 F Pulse Rate 91 92 Pulse Rate [Right Pulse Oximeter] 116 H Respiratory Rate 16 Blood Pressure Blood Pressure [Ri ght Upper Arm] 114/70 Pulse Oximetry 96 95 96 Oxygen Delivery De thod Room Air 05/31/22 16:00 05/31/22 16:01 05/31/22 16:02 Temperature Pulse Rate 88 88 91 Pulse Rate [Right Pulse Oximeter] Respiratory Rate Blood Pressure 144/85 H Blood Pressure [Ri ght Upper Arm] Pulse Oximetry 97 97 96 Oxygen Delivery Me thod 05/31/22 16:15 05/31/22 16:30 05/31/22 16:31 Temperature Pulse Rate 96 96 96 Pulse Rate [Right Pulse Oximeter] Respiratory Rate Blood Pressure 148/96 H Blood Pressure [Ri ght Upper Arm] Pulse Oximetry 97 98 98 Oxygen Delivery De thod 05/31/22 16:46 05/31/22 16:47 05/31/22 17:00 Temperature Pulse Rate 102 H 98 107 H Pulse Rate [Right Pulse Oximeter] Respiratory Rate Blood Pressure 152/107 H Blood Pressure [Ri ght Upper Arm] Pulse Oximetry 95 96 97 Oxygen Delivery Me thod 05/31/22 17:01 05/31/22 17:15 05/31/22 17:30 Temperature Pulse Rate 103 H 98 96 Pulse Rate [Right Pulse Oximeter] Respiratory Rate Blood Pressure 148/95 H 118/78 Blood Pressure [Ri ght Upper Arm] Pulse Oximetry 97 96 98 Oxygen Delivery Me thod 05/31/22 17:31 05/31/22 17:45 05/31/22 18:03 Temperature Pulse Rate 98 103 H 97 Pulse Rate [Right Pulse Oximeter] Respiratory Rate Blood Pressure 143/94 H Blood Pressure [Ri ght Upper Arm] Pulse Oximetry 97 97 96 Oxygen Delivery Me thod 05/31/22 18:04 05/31/22 18:15 05/31/22 18:30 Temperature Pulse Rate 106 H 110 H 115 H Pulse Rate [Right Pulse Oximeter] Respiratory Rate Blood Pressure Blood Pressure [Ri ght Upper Arm] Pulse Oximetry 96 96 96 Oxygen Delivery Me thod 05/31/22 18:31 05/31/22 18:45 05/31/22 19:00 Temperature Pulse Rate 108 H 116 H 106 H Pulse Rate [Right Pulse Oximeter] Respiratory Rate Blood Pressure 107/69 Blood Pressure [Ri ght Upper Arm] Pulse Oximetry 96 95 96 Oxygen Delivery Me thod 05/31/22 19:01 05/31/22 19:15 05/31/22 19:30 Temperature Pulse Rate 103 H 115 H 98 Pulse Rate [Right Pulse Oximeter] Respiratory Rate Blood Pressure 131/84 Blood Pressure [Ri ght Upper Arm] Pulse Oximetry 96 94 96 Oxygen Delivery Me thod 05/31/22 19:31 05/31/22 20:19 Temperature Pulse Rate 97 Pulse Rate [Right Pulse Oximeter] Respiratory Rate 18 Blood Pressure 137/87 Blood Pressure [Ri ght Upper Arm] Pulse Oximetry 95 98 Oxygen Delivery Me thod Room Air Hospitalist - H&P: Result Labs Labs: Short CBC 05/31/22 Range/Units 14:55 WBC 9.20 (4.50-11.00) K/uL Hgb 12.7 (12.0-16.0) gm/dL Hct 39.8 (33.0-51.0) % Plt Count 268 (140-440) K/uL BMP 05/31/22 14:55 Sodium 141 Potassium 2.9 L* Chloride 109 Carbon Dioxide 21 BUN 13 Creatinine 0.9 Glucose 110 Calcium 9.4 Urine 05/31/22 Range/Units 15:54 Urine Color Yellow (Yellow) Urine Appearance Clear (Clear) Urine pH 5.5 (5.0-8.5) Ur Specific [place] 1.010 (1.000-1.030) Urine Protein Negative (Negative) Urine Glucose (UA) Negative (Negative) Assessment and Plan Assessment and plan (1) COVID-19: Problem comment: Symptoms began 05/25/22. Covid positive 05/31/22. Status: Acute Assessment and Plan: Outside 5 day window for paxlovid. Start remdesivir, 3 day course. Not hypoxic. (2) SVT (supraventricular tachycardia): Problem comment: possibly secondary to nicotine abuse. She has been using 28-40mg of nicotine gum daily. Status: Acute Assessment and Plan: monitor on telemetry. (3) Weakness: Problem comment: due to covid Status: Acute Assessment and Plan: PT and OT consults. (4) Hypokalemia: Status: Acute Assessment and Plan: Mg 1.9. Got po K replacement in ER. Recheck in am. (5) Restless leg syndrome: Problem comment: 2012 Has increased to 200 mg gabapentin twice daily to prevent RLS symptoms in the evening and overnight. Feels that this dosage is appropriate, no adverse effects, would like a new prescription reflecting the change. Discussed that as her hemoglobin and ferritin levels improve, it is very likely that her RLS symptoms will improve, as well. Status: Chronic Assessment and Plan: Continue home medication (6) Chronic back pain: Problem comment: Doing well without being able to take NSAIDs for her back pain. Continues gabapentin on a daily basis, and tramadol a couple times a day to 3 times a day as needed for more acute discomfort. No increase in her back symptoms. Denies any radiating pain into lower extremities or groin, denies paresthesias, and denies weakness in her lower extremities. No adverse effects from her medications. Status: Chronic Assessment and Plan: Continue home medication.
[2022-05-31 22:58] LABS: Albumin* 4.2 g/dL (3.3-5.0)
[2022-05-31] MEDS: ENOXAPARIN 40 MG/0.4 ML INJ SUBCUT (22:58)
[2022-05-31] MEDS: GABAPENTIN 600 MG TABLET PO (22:58)
[2022-05-31] MEDS: LIDOCAINE 5% PATCH 1 PATCH TRANSDERMA (22:58)
[2022-05-31 23:01] LABS: Alkaline Phosphatase* 132 U/L (40-150); Aspartate Amino Transferase* 152 U/L (12-35); Bilirubin Direct* 0.3 mg/dL (0.0-0.5); Bilirubin Total* 0.4 mg/dL (0.1-1.5); Total Protein* 7.3 g/dL (6.0-8.3)
[2022-05-31 23:02] LABS: Alanine Aminotransferase* 46 U/L (4-35)
--- NOTE | 2022-06-01 02:35 | PC.NURSE ---
Dr Joseph updated that pt's HR is in the 180-190's. Ordered to dc Nicotine gum. No other orders.
[2022-06-01 03:00] VITALS: BP 127/82; PULSE 117; RESP 20; TEMP 37.1; O2SAT 95
--- NOTE | 2022-06-01 05:37 | PC.NURSE ---
200-0700 Pt on RA with sats in mid to upper 90's, up frequently to use BR, no diarrhea this shift, ambulating to BR with SBA, tolerated activity well. PT HR SVT throughout night, up to 180's with activity, down to 88 at one point, primarily in 110's at rest, Pt informed about excessive nicotine gum use possibly contributing to high HR, pt spit out gum and said ok. denies sob, lightheaded or dizziness, headache or chest pain, does c/o some weakness. denies N/V.
[2022-06-01 07:00] VITALS: BP 119/71; PULSE 117; PULSE 91; RESP 20; TEMP 37.1; O2SAT 95
[2022-06-01 07:24] LABS: Basophils Absolute Auto 0.03 K/uL (0.00-0.30); Basophils Percent Auto 0.5 % (0.0-3.0); Eosinophils Absolute Auto 0.06 K/uL (0.00-0.50); Hematocrit 38.3 % (33.0-51.0); Hemoglobin* 12.2 gm/dL (12.0-16.0); Immature Granulocytes Abs Auto 0.08 K/uL (0.00-0.30); Immature Granulocytes Pct Auto 1.4 %; Lymphocytes Absolute Auto 1.46 K/uL (0.90-2.90); Lymphocytes Percent Auto 24.9 % (20-44); Mean Corpuscular HGB Conc 32 gm/dL (32-36); Mean Corpuscular Hemoglobin 29 pg (26-34); Mean Corpuscular Volume 90 fL (80-100); Monocytes Percent Auto 9.5 % (0.0-11.0); Neutrophils Absolute Auto 3.68 K/uL (1.7-7.0); Neutrophils Percent Auto 62.7 % (42.0-72.0); Platelet Count* 266 K/uL (140-440); RDW Coefficient of Variation % 13.6 % (11.5-15.5); Red Blood Count 4.27 m/uL (4.00-5.20); White Blood Count* 5.87 K/uL (4.50-11.00)
[2022-06-01 07:32] LABS: Slide Review Reflex No
[2022-06-01 07:40] LABS: Chloride* 112 mmol/L (96-114); Potassium* 4.3 mmol/L (3.6-5.1); Sodium* 144 mmol/L (135-149)
[2022-06-01 07:43] LABS: Blood Urea Nitrogen* 8 mg/dL (7-30); Carbon Dioxide* 27 mmol/L (20-32); Creatinine* 0.8 mg/dL (0.5-1.5); Est. Creatinine Clearance* 39.51; Estimated Glomerular Filt Rate 77 ml/min; Glucose* 95 mg/dL (60-115)
[2022-06-01 07:44] LABS: Calcium* 8.9 mg/dL (8.4-10.6)
[2022-06-01] MEDS: OMEPRAZOLE 20 MG CAPSULE DR PO (08:48)
[2022-06-01] MEDS: SERTRALINE 100 MG TABLET PO (08:48)
[2022-06-01] MEDS: METOPROLOL TARTRATE 1 MG/ML inj 5 MG IVP (08:48)
[2022-06-01 11:00] VITALS: BP 125/78; PULSE 70; RESP 20; TEMP 36.7; O2SAT 95
[2022-06-01 11:01] LABS: Magnesium* 2.1 mg/dL (1.5-2.6)
[2022-06-01] MEDS: METOPROLOL SUCCINATE (XL) 25 MG TAB PO (11:08)
[2022-06-01] MEDS: APIXABAN 5 MG TABLET PO ×2 (11:08→20:49)
--- NOTE | 2022-06-01 11:51 | PM.IMPN1 ---
Progress Note: A&P Assessment and plan (1) COVID-19: Problem details: Symptoms began 05/25/22. Covid positive 05/31/22. Status: Acute Assessment and Plan: Discontinue remdesivir (2) Atrial fibrillation with rapid ventricular response: Status: Acute Assessment and Plan: start metoprolol for rate control start eliquis for stroke ppx Obtain Echo (3) Hypokalemia: Status: Acute (4) Restless leg syndrome: Problem details: 2011 Has increased to 200 mg gabapentin twice daily to prevent RLS symptoms in the evening and overnight. Feels that this dosage is appropriate, no adverse effects, would like a new prescription reflecting the change. Discussed that as her hemoglobin and ferritin levels improve, it is very likely that her RLS symptoms will improve, as well. Status: Chronic (5) Chronic back pain: Problem details: Doing well without being able to take NSAIDs for her back pain. Continues gabapentin on a daily basis, and tramadol a couple times a day to 3 times a day as needed for more acute discomfort. No increase in her back symptoms. Denies any radiating pain into lower extremities or groin, denies paresthesias, and denies weakness in her lower extremities. No adverse effects from her medications. Status: Chronic (6) Weakness: Problem details: due to covid Status: Acute Plan Plan for 06/01/22 DC remdesivir does not meet criteria start metoprolol for rate control start eliquis for stroke ppx Obtain Echo follow and replace electrolytes I will call son today to update Subjective Date Seen: 06/01/22 Interval history: patient denies chest pain denies palpitations denies SOB endorses weakness patient was in afib w/RVR this am given IV metoprolol Exam Narrative: Exam Narrative: Gen: no acute distress HEENT: NCAT EOMI MMM CV: IRIR s1 s2 LCTAB Abd: Soft, nt,nd Neuro: alert oriented Const: Vital Signs, click to edit/add: Vital Signs - 24 hr 05/31/22 13:42 05/31/22 15:44 05/31/22 15:45 Temperature 97.7 F Pulse Rate 91 92 Pulse Rate [Pulse Oximeter] Pulse Rate [Right Pulse Oximeter] 116 H Respiratory Rate 16 Blood Pressure Blood Pressure [Le ft Arm] Blood Pressure [Ri ght Upper Arm] 114/70 Pulse Oximetry 96 95 96 Oxygen Delivery Me thod Room Air 05/31/22 16:00 05/31/22 16:01 05/31/22 16:02 Temperature Pulse Rate 88 88 91 Pulse Rate [Pulse Oximeter] Pulse Rate [Right Pulse Oximeter] Respiratory Rate Blood Pressure 144/85 H Blood Pressure [Le ft Arm] Blood Pressure [Ri ght Upper Arm] Pulse Oximetry 97 97 96 Oxygen Delivery Me thod 05/31/22 16:15 05/31/22 16:30 05/31/22 16:31 Temperature Pulse Rate 96 96 96 Pulse Rate [Pulse Oximeter] Pulse Rate [Right Pulse Oximeter] Respiratory Rate Blood Pressure 148/96 H Blood Pressure [Le ft Arm] Blood Pressure [Ri ght Upper Arm] Pulse Oximetry 97 98 98 Oxygen Delivery Me thod 05/31/22 16:46 05/31/22 16:47 05/31/22 17:00 Temperature Pulse Rate 102 H 98 107 H Pulse Rate [Pulse Oximeter] Pulse Rate [Right Pulse Oximeter] Respiratory Rate Blood Pressure 152/107 H Blood Pressure [Le ft Arm] Blood Pressure [Ri ght Upper Arm] Pulse Oximetry 95 96 97 Oxygen Delivery Me thod 05/31/22 17:01 05/31/22 17:15 05/31/22 17:30 Temperature Pulse Rate 103 H 98 96 Pulse Rate [Pulse Oximeter] Pulse Rate [Right Pulse Oximeter] Respiratory Rate Blood Pressure 148/95 H 118/78 Blood Pressure [Le ft Arm] Blood Pressure [Ri ght Upper Arm] Pulse Oximetry 97 96 98 Oxygen Delivery Me thod 05/31/22 17:31 05/31/22 17:45 05/31/22 18:03 Temperature Pulse Rate 98 103 H 97 Pulse Rate [Pulse Oximeter] Pulse Rate [Right Pulse Oximeter] Respiratory Rate Blood Pressure 143/94 H Blood Pressure [Le ft Arm] Blood Pressure [Ri ght Upper Arm] Pulse Oximetry 97 97 96 Oxygen Delivery Me thod 05/31/22 18:04 05/31/22 18:15 05/31/22 18:30 Temperature Pulse Rate 106 H 110 H 115 H Pulse Rate [Pulse Oximeter] Pulse Rate [Right Pulse Oximeter] Respiratory Rate Blood Pressure Blood Pressure [Le ft Arm] Blood Pressure [Ri ght Upper Arm] Pulse Oximetry 96 96 96 Oxygen Delivery Me thod 05/31/22 18:31 05/31/22 18:45 05/31/22 19:00 Temperature Pulse Rate 108 H 116 H 106 H Pulse Rate [Pulse Oximeter] Pulse Rate [Right Pulse Oximeter] Respiratory Rate Blood Pressure 107/69 Blood Pressure [Le ft Arm] Blood Pressure [Ri ght Upper Arm] Pulse Oximetry 96 95 96 Oxygen Delivery Me thod 05/31/22 19:01 05/31/22 19:15 05/31/22 19:30 Temperature Pulse Rate 103 H 115 H 98 Pulse Rate [Pulse Oximeter] Pulse Rate [Right Pulse Oximeter] Respiratory Rate Blood Pressure 131/84 Blood Pressure [Le ft Arm] Blood Pressure [Ri ght Upper Arm] Pulse Oximetry 96 94 96 Oxygen Delivery Me thod 05/31/22 19:31 05/31/22 20:19 05/31/22 23:00 Temperature Pulse Rate 97 Pulse Rate [Pulse Oximeter] 101 H Pulse Rate [Right Pulse Oximeter] Respiratory Rate 18 Blood Pressure 137/87 Blood Pressure [Le ft Arm] Blood Pressure [Ri ght Upper Arm] Pulse Oximetry 95 98 Oxygen Delivery Nh thod Room Air 05/31/22 23:00 05/31/22 23:32 06/01/22 03:00 Temperature 98.8 F 98.7 F Pulse Rate 91 Pulse Rate [Pulse Oximeter] 117 H Pulse Rate [Right Pulse Oximeter] Respiratory Rate 18 20 Blood Pressure Blood Pressure [Le ft Arm] 148/79 H 127/82 Blood Pressure [Ri ght Upper Arm] Pulse Oximetry 95 95 [facility] 05/31/22 20:30 06/01/22 07:00 06/01/22 07:00 Temperature 98.7 F Pulse Rate Pulse Rate [Pulse Oximeter] 117 H 117 H Pulse Rate [Right Pulse Oximeter] Respiratory Rate 20 20 Blood Pressure Blood Pressure [Le ft Arm] 119/71 Blood Pressure [Ri ght Upper Arm] Pulse Oximetry 98 95 Oxygen Delivery Me od Room Air Room Air 06/01/22 07:00 06/01/22 11:00 Temperature 98.0 F Pulse Rate 91 Pulse Rate [Pulse Oximeter] 70 Pulse Rate [Right Pulse Oximeter] Respiratory Rate 20 Blood Pressure Blood Pressure [Le ft Arm] 125/78 Blood Pressure [Ri ght Upper Arm] Pulse Oximetry 95 [facility] Labs Labs: Laboratory Results - last 24 hr 05/31/22 05/31/22 05/31/22 13:58 14:55 14:55 WBC 9.20 RBC 4.50 Hgb 12.7 Hct 39.8 MCV 88 MCH 28 MCHC 32 RDW Coeff of William 13.4 Plt Count 268 Neut % (Auto) 78.8 H Lymph % (Auto) 12.7 L [place] % (Auto) 7.3 Eos % (Auto) 0.1 Baso % (Auto) 0.2 Neut # (Auto) 7.20 H Lymph # (Auto) 1.20 [place] # (Auto) 0.70 Eos # (Auto) 0.01 Baso # (Auto) 0.02 Abs Immat Gran (auto) 0.08 Imm/Tot Granulo (auto) 0.9 Sodium 141 Potassium 2.9 L* Chloride 109 Carbon Dioxide 21 BUN 13 Creatinine 0.9 Estimated Creat Clear 38.29 Estimated GFR 67 Glucose 110 Calcium 9.4 Magnesium Total Bilirubin 0.4 Direct Bilirubin 0.3 AST 152 H ALT 46 H Alkaline Phosphatase 132 C-Reactive Protein 4.7 H NT-Pro-B Natriuret Pep 1010 H Total Protein 7.3 Albumin 4.2 Urine Color Urine Appearance Urine pH Ur Specific [place]erman Urine Protein Urine Glucose (UA) Urine Ketones Urine Blood Urine Nitrite Urine Bilirubin Urine Urobilinogen Ur Leukocyte Esterase Urine RBC Urine WBC Ur Squamous Epith Cells Urine Bacteria SARS-CoV-2 (PCR) POSITIVE SARS-CoV-2 A Influenza Type A (PCR) Negative PCR FLU A Influenza Type B (PCR) Negative PCR FLU B RSV (PCR) Negative PCR RSV 05/31/22 05/31/22 06/01/22 14:55 15:54 07:08 WBC 5.87 RBC 4.27 Hgb 12.2 Hct 38.3 MCV 90 MCH 29 MCHC 32 RDW Coeff of William 13.6 Plt Count 266 Neut % (Auto) 62.7 Lymph % (Auto) 24.9 [place] % (Auto) 9.5 Eos % (Auto) 1.0 Baso % (Auto) 0.5 Neut # (Auto) 3.68 Lymph # (Auto) 1.46 [place] # (Auto) 0.60 Eos # (Auto) 0.06 Baso # (Auto) 0.03 Abs Immat Gran (auto) 0.08 Imm/Tot Granulo (auto) 1.4 Sodium Potassium Chloride Carbon Dioxide BUN Creatinine Estimated Creat Clear Estimated GFR Glucose Calcium Magnesium 1.9 Total Bilirubin Direct Bilirubin AST ALT Alkaline Phosphatase C-Reactive Protein NT-Pro-B Natriuret Pep Total Protein Albumin Urine Color Yellow Urine Appearance Clear Urine pH 5.5 Ur Specific [place]erman 1.010 Urine Protein Negative Urine Glucose (UA) Negative Urine Ketones Negative Urine Blood 2+ A Urine Nitrite Positive A Urine Bilirubin Negative Urine Urobilinogen 0.2 Ur Leukocyte Esterase Negative Urine RBC 0-2 Urine WBC 0-2 Ur Squamous Epith Cells None Urine Bacteria Moderate A SARS-CoV-2 (PCR) Influenza Type A (PCR) Influenza Type B (PCR) RSV (PCR) 06/01/22 07:08 WBC RBC Hgb Hct MCV MCH MCHC RDW Coeff of William Plt Count Neut % (Auto) Lymph % (Auto) [place] % (Auto) Eos % (Auto) Baso % (Auto) Neut # (Auto) Lymph # (Auto) [place] # (Auto) Eos # (Auto) Baso # (Auto) Abs Immat Gran (auto) Imm/Tot Granulo (auto) Sodium 144 Potassium 4.3 Chloride 112 Carbon Dioxide 27 BUN 8 Creatinine 0.8 Estimated Creat Clear 39.51 Estimated GFR 77 Glucose 95 Calcium 8.9 Magnesium 2.1 Total Bilirubin Direct Bilirubin AST ALT Alkaline Phosphatase C-Reactive Protein NT-Pro-B Natriuret Pep Total Protein Albumin Urine Color Urine Appearance Urine pH Ur Specific [place]erman Urine Protein Urine Glucose (UA) Urine Ketones Urine Blood Urine Nitrite Urine Bilirubin Urine Urobilinogen Ur Leukocyte Esterase Urine RBC Urine WBC Ur Squamous Epith Cells Urine Bacteria SARS-CoV-2 (PCR) Influenza Type A (PCR) Influenza Type B (PCR) RSV (PCR)
[2022-06-01 15:00] VITALS: PULSE 70; PULSE 80; RESP 20
--- NOTE | 2022-06-01 18:43 | PC.NURSE ---
End of Shift: Patient had a little run of Afib rvr earlier today and received medication. Since then her heart rate has been normal sinus. Have tried to enc her to be up and active and sitting in the chair she has been very reluctant to any activity. She complained that her room is cold. Check her temp to see if she was running a fever and she has not had a fever noted. Did also have maintenance check the room temp also and gave her a warm blanket. Have been able to get her up a couple of times today. Will continue to monitor until able to give report to the next shift.
[2022-06-01 20:53] VITALS: BP 121/65; PULSE 75; RESP 18; TEMP 36.7; O2SAT 92
[2022-06-01] MEDS: GABAPENTIN 600 MG TABLET PO (20:54)
[2022-06-01] MEDS: SODIUM CHLORIDE 0.9 % (FLUSH) 10 ML SYRINGE IVF (22:10)
[2022-06-01] MEDS: LIDOCAINE 5% PATCH 1 PATCH TRANSDERMA (22:11)
[2022-06-01] MEDS: TRAMADOL HCL 50 MG TABLET PO (22:11)
[2022-06-01 23:00] VITALS: PULSE 71; PULSE 74; RESP 18
[2022-06-02] VITALS: BP 129/79; PULSE 74; RESP 18; TEMP 36.7; O2SAT 92
--- NOTE | 2022-06-02 00:35 | PM.IMPN1 ---
Progress Note: A&P Assessment and plan (1) COVID-19: Problem details: Symptoms began 05/25/22. Covid positive 05/31/22. Status: Acute Plan e hospitalist collaboration: patient cannot sleep requests more gabapentin and has 600mg rosemary and she took that but at home takes up to 1200 mg, with covid 19 and monitoring resp status held on further gabapentin, melatonin added. Subjective Date Seen: 06/02/22 Exam Const: Vital Signs, click to edit/add: Vital Signs - 24 hr 06/01/22 03:00 06/01/22 07:00 06/01/22 07:00 Temperature 98.7 F 98.7 F Pulse Rate Pulse Rate [Pulse Oximeter] 117 H 117 H 117 H Respiratory Rate 20 20 20 Blood Pressure [Le ft Arm] 127/82 119/71 Pulse Oximetry 95 95 Oxygen Delivery Me thod Room Air Room Air 06/01/22 07:00 06/01/22 11:00 06/01/22 15:00 Temperature 98.0 F Pulse Rate 91 Pulse Rate [Pulse Oximeter] 70 70 Respiratory Rate 20 20 Blood Pressure [Le ft Arm] 125/78 Pulse Oximetry 95 Oxygen Delivery Me thod Room Air 06/01/22 15:00 06/01/22 20:53 06/02/22 00:00 Temperature 98.1 F 98.1 F Pulse Rate 80 Pulse Rate [Pulse Oximeter] 75 74 Respiratory Rate 18 18 Blood Pressure [Le ft Arm] 121/65 129/79 Pulse Oximetry 92 92 Oxygen Delivery Me thod Room Air Labs Labs: Laboratory Results - last 24 hr 06/01/22 06/01/22 07:08 07:08 WBC 5.87 RBC 4.27 Hgb 12.2 Hct 38.3 MCV 90 MCH 29 MCHC 32 RDW Coeff of William 13.6 Plt Count 266 Neut % (Auto) 62.7 Lymph % (Auto) 24.9 [place] % (Auto) 9.5 Eos % (Auto) 1.0 Baso % (Auto) 0.5 Neut # (Auto) 3.68 Lymph # (Auto) 1.46 [place] # (Auto) 0.60 Eos # (Auto) 0.06 Baso # (Auto) 0.03 Abs Immat Gran (auto) 0.08 Imm/Tot Granulo (auto) 1.4 Sodium 144 Potassium 4.3 Chloride 112 Carbon Dioxide 27 BUN 8 Creatinine 0.8 Estimated Creat Clear 39.51 Estimated GFR 77 Glucose 95 Calcium 8.9 Magnesium 2.1
[2022-06-02 03:35] VITALS: BP 114/77; PULSE 76; RESP 18; TEMP 36.5; O2SAT 93
--- NOTE | 2022-06-02 05:53 | PC.NURSE ---
Shift note: Pt requested for Gabapentin for discomfort in the right LE at 2330 but the last dose given was at 1999. MD notified through phone call but denied pt's request. PRN Tramadol was considered but the last dose was 2 hour from the time of her request. Pt educated about why she cannot have additional dose of Gabapentin. It appears like pt has been taking frequent doses of Gabapentin at home and wanted to maintain same ritual before going to bed. V/s WNL.
[2022-06-02 07:00] VITALS: BP 117/66; PULSE 80; PULSE 82; PULSE 86; RESP 18; TEMP 36.7; O2SAT 91
[2022-06-02] MEDS: APIXABAN 5 MG TABLET PO (09:22)
[2022-06-02] MEDS: POTASSIUM CHLORIDE 10 MEQ CAPSULE ER PO (09:22)
[2022-06-02] MEDS: METOPROLOL SUCCINATE (XL) 25 MG TAB PO (09:23)
[2022-06-02] MEDS: OMEPRAZOLE 20 MG CAPSULE DR PO (09:23)
[2022-06-02] MEDS: SODIUM CHLORIDE 0.9 % (FLUSH) 10 ML SYRINGE IVF (09:23)
[2022-06-02] MEDS: SERTRALINE 100 MG TABLET PO (09:23)
[2022-06-02 11:00] VITALS: BP 110/72; PULSE 86; RESP 18; TEMP 36.6; O2SAT 90
--- NOTE | 2022-06-02 11:47 | PM.DS1 ---
DS: Providers Provider Date Seen: 06/02/22 Date of admission: 05/31/22 22:14 Primary care physician: Josette Copeland Admitting Clinician: Chio Joseph MD Attending Physician on discharge: Chio Joseph MD Date of Discharge: 06/02/22 DS: Diagnosis Discharge Diagnosis (1) COVID-19: Status: Acute Problem details: Symptoms began 05/25/22. Covid positive 05/31/22. Thought to be the cause of acute weakness and loss of appetite. No COVID pneumonia or hypoxia (2) Atrial fibrillation with rapid ventricular response: Status: Acute Problem details: Patient has recurrent paroxysmal atrial fibrillation. Had another episode of atrial fibrillation with RVR which spontaneously resolved during this hospital stay. Discussed with patient risks and benefits of anticoagulation. (3) Hypokalemia: Status: Acute Problem details: Hypokalemia of uncertain etiology. Started on oral potassium. (4) Weakness: Status: Acute Problem details: due to covid DS: Summary Hospital Course Hospital Course: 76-year-old female admitted to the hospital with a 1 week history of weakness fatigue malaise poor appetite diarrhea. Time admission she was diagnosed with COVID infection. She did not have hypoxia or radiographic pneumonia. She did not receive any COVID specific treatment. During her hospital stay her symptoms have largely resolved. She still reports some weakness and fatigue. Her main complaint today is her chronic back pain. She was also noted to have low potassium of 2.9 on admission. The cause for this was uncertain. She had an episode of atrial fibrillation with rapid ventricular response. She had had this on a previous admission as well. In both cases this resolved spontaneously without specific therapy or intervention except for correcting her potassium. Echocardiogram was normal.. Status at Discharge Functional status at discharge: uses cane/walker Overall status at discharge: patient is progressing back to baseline Time Spent with Patient Time attestation: Total time spent providing and/or coordinating discharge services: Time spent: Greater than 30 minutes Exam Narrative: Exam Narrative: She is alert and oriented and appears in no distress. She gives her own history. Respirations are clear to auscultation. Breathing is unlabored. Cardiovascular: S1, S2, regular rate and rhythm. No murmur gallop or rub. Abdomen: Bowel sounds are active. Abdomen is soft without tenderness or mass. Extremities without edema. Const: Vital Signs, click to edit/add: Vital Signs - 24 hr 06/01/22 15:00 06/01/22 15:00 06/01/22 20:53 Temperature 98.1 F Pulse Rate 80 Pulse Rate [Pulse Oximeter] 70 75 Respiratory Rate 20 18 Blood Pressure [Le ft Arm] 121/65 Pulse Oximetry 92 Oxygen Delivery Me thod 06/02/22 00:00 06/01/22 23:00 06/01/22 23:00 Temperature 98.1 F Pulse Rate 71 Pulse Rate [Pulse Oximeter] 74 74 Respiratory Rate 18 18 Blood Pressure [Le ft Arm] 129/79 Pulse Oximetry 92 Oxygen Delivery Me thod Room Air 06/02/22 03:35 06/02/22 07:00 Temperature 97.7 F 98.0 F Pulse Rate Pulse Rate [Pulse Oximeter] 76 82 Respiratory Rate 18 18 Blood Pressure [Le ft Arm] 114/77 117/66 Pulse Oximetry 93 91 Oxygen Delivery Me thod Room Air Room Air Documenting provider has reviewed patient's vital signs: yes Discharge Plan Discharge Disposition: Home, Self-Care Date of Admission: 05/31/22 22:14 Primary Care Provider: Josette Copeland Condition: Improved Anticipated Discharge Date/Time: 06/02/22 11:54 Discharge Medications: New Eliquis 5 mg Tablet 5 mg PO BID Qty: 60 0RF potassium chloride 10 mEq Capsule, Extended Release 10 meq PO DAILYWM Qty: 30 0RF metoprolol succinate 25 mg Tablet Extended Release 24 Hr 25 mg PO DAILY Qty: 30 0RF Continued gabapentin 400 mg capsule See Rx Instructions .ROUTE .COMPLEX PRN (Reason: restless leg(s)) Rx Instructions: 4-5 cap hs PRN; sertraline 100 mg tablet 100 mg PO DAILY tramadol 50 mg tablet 50 mg PO Q8H omeprazole 20 mg capsule,delayed release(DR/EC) 20 mg PO DAILY Label Comments: TAKE 1 CAPSULE BY MOUTH TWICE DAILY BEFORE MEALS. TAKE 1 HOUR BEFORE A MEAL. Slow Fe 142 mg (45 mg iron) tablet extended release 142 mg PO Q48H Discharge Orders: Discharge Order (Routine); Ordered 06/02/22 Ordered By: Leeroy Martin Activity Level: Activity as Tolerated Discharge Diet: Regular Follow Up Appointments: Josette Copeland MD [Primary Care Provider] - (See your doctor next week for recheck of your COVID infection, weakness, potassium, atrial fibrillation.) Forms: MyHealth Info Instructions
--- NOTE | 2022-06-02 12:07 | PC.SOCIAL ---
Discharge planning: Spoke with pt regarding d/c plan. Pt plans to return home where she lives with son. Per pt, son is home most of the time and will provide needed care to pt at home. Pt requested MD order for home care PT be sent to [facility] were she has had care from before. Called [facility] [phone] and spoke with Nu in intake who confirmed pt has received services in the past. They have availability to start PT care on , 06/08/22. This start date was approved by physician. Faxed information to [facility] who will contact pt directly to schedule first visit. Pt is aware and pleased with this discharge plan.
--- NOTE | 2022-06-02 15:55 | PC.NURSE ---
Nurse Care Hours: [id number] Pt this shift cooperative with cares, pt expresses desire to go home today. Stable on RA, SB assist with walker to bathroom x2, no SOB. LS clear. Ordered a extra large breakfast and ate half, skipped lunch. DC instructions given. Discussed alternating with Tylenol and Ibuprofen for sciatic nerve pain. D/t new order of Eliquis, advised to take NSAID with a meal to avoid gastric irritation and ulcers. Discussed new order of Metoprolol for HTN. Per pt and pt adult son, pt has never had high blood pressure but instead deals with too low of pressure. Pt states she has MyChart, automatic typewriter inspector recommended pt send a note to primary discussing the high blood pressure on admission and the new medication order for further instructions. Pt aslo states she has a blood pressure reader at home, automatic typewriter inspector advised pt to take readings at least daily or twice a day, and discuss with primary and follow up appointment. Pt son concerned about his mom taking Eliquis since the Afib resolved during hospital stay. Packaging Line Attendant educated pt and family that Afib can come and go, sometimes without any symptoms, and that Afib can increase chance of blood clot leading to other issues. Discussed with pt and family that Eliquis is still recommended until pt can discuss with primary at follow up appointment. All questions and concerns answered, pt wheeled out to sons car in stable condition.
== END 2022-06-02 14:30 | disposition home or self-care (01) | DRG 178 ==
LOC: ED 14:16 → MEDSURG 20:13
PROVIDERS: Hospitalist; Admitting Provider Family Medicine; Emergency Provider Family Medicine; PCP Emergency Medicine; Visit Provider Family Medicine
DX: U07.1 COVID-19 (principal); I47.1 Supraventricular tachycardia; I48.91 Unspecified atrial fibrillation; R53.1 Weakness; G25.81 Restless legs syndrome; E87.6 Hypokalemia; G89.29 Other chronic pain; M54.9 Dorsalgia, unspecified; F41.1 Generalized anxiety disorder; D50.9 Iron deficiency anemia, unspecified
CPT/HCPCS: 36415; 80048; 80076; 81001; 83735; 83880; 85025; 86140; 87086; 87186; 87502; 87634; 87635; 93005; 93306; 97110; 97116; 97161; 97165; 97535; 99284; 99285; A9270; J1650; J2405; J3475; J7030; J7050; J7120

== ENCOUNTER 2022-06-08 11:04 | Outpatient (CLI) | payer MEDICARE, SELFPAY ==
--- OUTSIDE RECORDS SUMMARY | 2022-06-08 11:07 | XMS_ITS | Encounter Summary ---
:1945 Author Organization [employer] Address [address] [place] [address] Care Team Providers Name Role Phone Shiraz Simeon PA-C Primary Care Provider Reason for Visit Reason Comments Refill gabapentin (NEURONTIN) 400 M G capsule [Pharmacy Med Name: GABAPENTIN 400MG CAPSULES] Encounter Details Date Type Department Care Team Description 01/09/2022 Refill Long BarnShiraz Wills PA-C Refill (gabapentin [address] (NEURONTIN) 400 [place] [address] [place] [address] capsule [Pharmacy Med [phone] (Wo rk) Name: GABAPENTIN 400MG CAPSULES] ) [...] visit: None [facility] Embedded Refills, Reference: [id number], 01/09/2022 12:19:07 PM CDT, Pool: ARIANNE REFILL ([id number]) documented in this encounter Plan of Treatment Not on filedocumented as of this encounter Visit Diagnoses Diagnosis Restless legs syndrome (RLS) documented in this encounter Care Teams Plant Operations Coordinator Relationship Specialty Start Date End Date Shiraz Simeon PA-C PCP - General 03/02/16 [address] [place] [address] documented as of this encounter
--- OUTSIDE RECORDS SUMMARY | 2022-06-08 11:07 | XMS_ITS | Encounter Summary ---
:1945 Author Organization [employer] Address [address] [facility] [address] Care Team Providers Name Role Phone Shiraz Simeon PA-C Primary Care Provider Reason for Visit Reason Onset Date Comments MEDICATION CHECK Medicare Annual Wellness Phone Visit 04/05/2021 Encounter Details Date Type Department Care Team Description 04/05/2021 Phone Visit [place] e Shiraz Simeon, Chronic right-sided low back pain with right-sided sciatica (Primary Dx); [address] PA-C Generalized anxiety disorder; [place] [address] History of gastric ulcer; [phone] [place] [address] Restless legs syndrome (RLS); [phone] Post-menopausal ; (Work) Breast cancer screening by [...] do at work. 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 She is bringing [...] 17 minutes including, but not limited to, [id number] time spent reviewing records, counseling, and coordination [...] mammogram documented in this encounter Care Teams Director Software Relationship Specialty Start Date End Date Shiraz Simeon PA-C PCP - General 03/02/16 [address] [place], [place] [address] documented as of this encounter
--- OUTSIDE RECORDS SUMMARY | 2022-06-08 11:07 | XMS_ITS | Encounter Summary ---
:1945 Author Organization [employer] Address [address] [place] [address] Care Team Providers Name Role Phone Shiraz Simeon PA-C Primary Care Provider Reason for Referral (Routine) - New Request Specialty Diagnoses / Procedures Referred By Contact Refer red To Contact Diagnoses Screening for colon cancer Shiraz Simeon PA-C Procedures Endoscopy, Colon, Screening/Diagnostic [address] [place] [id number] Referral ID Status Reason Start Date Expiration Date Visits V isits Requested Authorized [id number] New Request 03/14/2022 03/14/2024 1 1 Reason for Visit Reason Onset Date Comments Preventative Health Exam Video Visit Video Visit 03/14/2022 Encounter Details Date Type Department Care Team Description 03/14/2022 Telemedicine [place] [facility] Medicin e Shiraz Simeon, Encounter for Medicare annua l wellness exam (Primary Dx); [address] PA-C Iron deficiency anemia, unspecified iron deficiency anemia type; [place] [address] [address] Generalized anxiety disorder; [phone] [place] [address] Restless legs syndrome (RLS); [phone] History of kayley jerald ulcer; (Work) Chronic right-sided low back pain with r ight-sided sciatica; [phone] Screening for c olon cancer; (Fax) Screening [...] pain needs have not changedin several years. [facility] reviewed and negative for concerns. She is [...] mellitus documented in this encounter Care Teams Fundraiser Relationship Specialty Start Date End Date Shiraz Simeon PA-C PCP - General 03/02/16 [address] [place], [place] [address] documented as of this encounter
--- OUTSIDE RECORDS SUMMARY | 2022-06-08 11:07 | XMS_ITS | Encounter Summary ---
:1945 Author Organization [employer] Address [address] [place] [address] Care Team Providers Name Role Phone Shiraz Simeon PA-C Primary Care Provider Reason for Visit Reason Comments Refill traMADol (ULTRAM) 50 MG tabl et [Pharmacy Med Name: TRAMADOL 50MG TABLETS] Encounter Details Date Type Department Care Team Description 04/27/2022 Refill [facility] Shiraz Simeon PA-C Refill (traMADol [address] (ULTRAM) 50 MG tablet [place] [address] [place] [address] [Pharmacy Med Name: [phone] (Wo rk) TRAMADOL 50MG TABLETS]) Social History [...] visit: None [employer] Embedded Refills, Reference: [id number], 04/27/2022 11:05:58 AM CDT, Pool: ARIANNE REFILL ([id number]) OGRAMMETRIST Interface, Out Postcard & Tag Prov Query - 04/27/2022 11:06 AM CDT No Careplan note found by [employer]. OGRAMMETRIST documented in this encounter Plan of Treatment Not on filedocumented as of this encounter Visit Diagnoses Diagnosis Chronic right-sided low back pain with r ight-sided sciatica documented in this encounter Care Teams Dividend Deposit Entry Clerk Relationship Specialty Start Date End Date Shiraz Simeon, PAMarielle PCP - General 03/02/16 [address] [place] [address] documented as of this encounter
--- OUTSIDE RECORDS SUMMARY | 2022-06-08 11:07 | XMS_ITS | Encounter Summary ---
:1945 Author Organization [employer] Address [address] [place] [address] Care Team Providers Name Role Phone Shiraz Simeon PA-C Primary Care Provider Reason for Visit Reason Comments Refill gabapentin (NEURONTIN) 400 M G capsule [Pharmacy Med Name: GABAPENTIN 400MG CAPSULES] Encounter Details Date Type Department Care Team Description 04/01/2021 Refill [facility] Butch Lee, Refill (gabapentin [address] KENISHA (NEURONTIN) [address] [place] [address] capsule [Pharmacy Med [phone] [place], [place] [address] Name: GABAPENTIN 400MG [phone] (Wo rk) CAPSULES]) Social History Tobacco Use [...] Lee PA-C 9:47 AM 04/01/2021 Interface, Out De[employer] Prov Query - 04/01/2021 9:43 AM CDT [...] found) Next scheduled visit: None Powered by [employer] by TrialScope, Reference: [id number], 04/01/2021 9:43:20 AM CDT, Pool: ARIANNE REFILL ([id number]) documented in this encounter Plan of Treatment Not on filedocumented as of this encounter Visit Diagnoses Diagnosis Restless legs syndrome (RLS) documented in this encounter Care Teams Postal Service Window Clerk Relationship Specialty Start Date End Date Shiraz Simeon PA-C PCP - General 03/02/16 [address] [place] [address] documented as of this encounter
--- OUTSIDE RECORDS SUMMARY | 2022-06-08 11:07 | XMS_ITS | Encounter Summary ---
:1945 Author Organization [employer] Address [address] [place] [address] Care Team Providers Name Role Phone Shiraz Simeon PA-C Primary Care Provider Reason for Visit Reason Comments Refill traMADol (ULTRAM) 50 MG tabl et [Pharmacy Med Name: TRAMADOL 50MG TABLETS] Encounter Details Date Type Department Care Team Description 11/05/2020 Refill [facility] Shiraz Simeon PA-C Refill (traMADol [address] (ULTRAM) 50 MG tablet [place] [address] [place] [address] [Pharmacy Med Name: [phone] (Wo rk) TRAMADOL 50MG TABLETS]) Social History [...] SIMEON) Next scheduled visit: None Powered by [employer] by Dynamic Signal, Reference: [id number], 11/05/2020 4:46:25 PM CDT, Pool:ARIANNE VALDEZ ([id number]) Interface, Out HEALBE Prov Query - 11/05/2020 4:46 PM CDT No Careplan note found by [employer]. documented in this encounter Plan of Treatment Not on filedocumented as of this encounter Visit Diagnoses Diagnosis Chronic right-sided low back pain with r ight-sided sciatica documented in this encounter Care Teams Ash Worker Relationship Specialty Start Date End Date Shiraz Simeon PA-C PCP - General 03/02/16 [address] [place] [address] documented as of this encounter
--- OUTSIDE RECORDS SUMMARY | 2022-06-08 11:07 | XMS_ITS | Encounter Summary ---
:1945 Author Organization [facility] Address [address] [place] [address] Care Team Providers Name Role Phone Shiraz Simeon PA-C Primary Care Provider Reason for Referral Consult/Transfer Care (Routine) - New Request Specialty Diagnoses / Procedures Referred By Contact Refer red To Contact Diagnoses Anemia, unspecified type Rahul Hdez PA-C [address] [place] [address] Referral ID Status Reason Start Date Expiration Date Visits V isits Requested Authorized [id number] New Request 06/01/2021 08/31/2022 1 1 Scheduling Instructions Your provider has recommended an appoint ment with [facility]. You may call [phone] to schedule your appoi ntment. We suggest you call your health insurance company about your coverage an d benefits for this appointment. ETT FIXER Procedure/Equipment (Routine) - Incomplete Specialty Diagnoses / Procedures Referred By Contact Refer red To Contact Diagnoses Cough Rahul Hdez PA-C Procedures XR Chest 2 Views [address] [place] [address] Referral ID Status Reason Start Date Expiration Date Visits V isits Requested Authorized [id number] Incomplete 06/01/2021 08/31/2022 1 1 ETT FIXER Reason for Visit Reason Comments LOOSE STOOLS FATIGUE Cough Encounter Details Date Type Department Care Team Description 06/01/2021 Office Visit Rahul Walker Cough; Roxanna Marie PA-C Tachycardia; Care [address] Dehydration; [address] [facility] [place], [place] Vomiting, intractability of vomiting not specified, presence of nausea not specified, unspecified vomiting type; [place] [address] Nausea; [address] Diarrhea, unspecified type; Anemia, unspecified [...] Comments Blood Pressure 100/62 06/01/2021 12:28 PM GARNETT FIXER Pulse 124 06/01/2021 12:28 PM GARNETT FIXER Temperature 36.6 ??C (97.8 ??F) 06/01/2021 12:28 PM GARNETT FIXER Respiratory Rate 20 06/01/2021 12:28 PM GARNETT FIXER Oxygen Saturation 97% 06/01/2021 12:28 PM GARNETT FIXER Inhaled Oxygen Concentration - - Weight - [...] 6. If COVID positive, fill out online [facility] mnrap form for Monoclonal Antibodies. 7. If COVID negative, continue above and return to if worsening of symptoms. ETT FIXER documented in this encounter Progress Notes Rahul [...] p.r.n. Total visit time was 35 minutes. ETT FIXER documented in this encounter Nursing Notes Radha [...] Pt also has cough x 4 days. ETT FIXER Annelise Byrnes RN - 06/01/2021 11:00 AM CST ETT FIXER Annelise Byrnes RN - 06/01/2021 11:00 AM CST ETT FIXER documented in this encounter Plan of Treatment Scheduled Referrals Name Type Priority Associated Diagnoses Order S [facility] FAMILY MEDICINE Referral Routine Anemia, unspecified type Ordered: 06/01/2021 CONSULT ADULT/PEDS (AMB) documented as of this encounter Procedures Procedure Name Priority Date/Time Associated Comments Diagnosis CBC AND DIFFERENTIAL STAT 06/01/2021 1:08 PM Tachycar sonido Results for this PANEL GARNETT FIXER Dehydration procedure are i n the results section. COMPLETE BLOOD STAT 06/01/2021 1:08 PM Tachycardia Results for this COUNT-W/DIFF GARNETT FIXER Dehydration procedure are i n the results section. BASIC METABOLIC PANEL STAT 06/01/2021 1:08 PM Tachyca rdia Results for this GARNETT FIXER Dehydration procedure are i n the results section. 2019 NOVEL Routine 06/01/2021 12:33 Cough Results for this CORONAVIRUS PM GARNETT FIXER procedure are i n the results section. documented in this encounter Results XR Chest 2 Views (06/01/2021 1:09 PM GARNETT FIXER) Anatomical Region Laterality Modality Chest, Lung Digital Radiography Specimen (Source) Anatomical Collection Method Collection Time Re ceived Time Location / / Volume Laterality 06/01/2021 12:57 PM GARNETT FIXER Impressions 06/01/2021 1:12 PM GARNETT FIXER COMPARISON: ??None. FINDINGS: ??Two views were obtained. [...] (ABNORMAL) Complete Blood Count-W/Diff (06/01/2021 1:08 PM GARNETT FIXER) [facility] gist Method Time Signature WBC 6.3 3.5 - 10.5 06/01/2021 [facility] x10(9)/L 1:31 PM [facility] RBC 3.59 (L) 3.90 - 06/01/2021 [facility] 5.03 1:31 PM [facility] x10(12)/L Hemoglobin 7.5 (L) 12.0 - 06/01/2021 [facility] 15.5 g/dL 1:31 PM [facility] HCT 29.4 (L) 34.9 - 06/01/2021 [facility] 44.5 % 1:31 PM [facility] MCV 81.9 80.0 - 06/01/2021 [facility] 100.0 fL 1:31 PM [facility] MCH 20.9 (L) 27.6 - 06/01/2021 [facility] 33.3 pg 1:31 PM [facility] MCHC 25.5 (L) 31.5 - 06/01/2021 [facility] 35.2 g/dL 1:31 PM [facility] RDW 19.6 (H) 11.9 - 06/01/2021 [facility] 15.5 % 1:31 PM [facility] Platelets 373 150 - 450 06/01/2021 [facility] x10(9)/L 1:31 PM [facility] Automated NRBC 1 (H) <=0 /100 06/01/2021 [facility] WBC 1:31 PM [facility] Neutrophil 5.0 1.7 - 7.0 06/01/2021 [facility] Absolute 10(9)/L 1:31 PM [facility] Lymphocyte 0.5 (L) 1.0 - 4.8 06/01/2021 [facility] Absolute 10(9)/L 1:31 PM [facility] Monocytes 0.5 0.2 - 0.9 06/01/2021 [facility] Absolute 10(9)/L 1:31 PM [facility] Eosinophil 0.0 0.0 - 0.5 06/01/2021 [facility] Absolute 10(9)/L 1:31 PM [facility] Basophil 0.0 0.0 - 0.3 06/01/2021 [facility] Absolute 10(9)/L 1:31 PM [facility] Immature Gran % 4.1 (H) 0.0 - 0.5 06/01/2021 [facility] % 1:31 PM [facility] Specimen Anatomical Collection Method / Collection Time Recei keyur Time (Source) Location / Volume Laterality Blood Venipuncture / 06/01/2021 1:08 06/01/2021 1:28 Unknown PM GARNETT FIXER PM GARNETT [facility] Rahul Hdez PA-C LAB_1 Performing Organization Address City/State/ZIP Code Phon e Number [facility] [address] [place] [address] (ABNORMAL) Basic Metabolic Panel (06/01/2021 1:08 PM GARNETT FIXER) Analysis Performed At Patho logist Time Signature Sodium 139 136 - 145 06/01/2021 [facility] mmol/L 1:45 PM [facility] Potassium 4.2 3.5 - 5.1 06/01/2021 [facility] mmol/L 1:45 PM [facility] Chloride 107 98 - 109 06/01/2021 [facility] mmol/L 1:45 PM [facility] CO2 19 (L) 20 - 29 06/01/2021 [facility] mmol/L 1:45 PM [facility] Anion Gap 13 7 - 16 06/01/2021 [facility] mmol/L 1:45 PM [facility] Calcium 9.0 8.4 - 10.4 06/01/2021 [facility] mg/dL 1:45 PM [facility] BUN 20 7 - 26 06/01/2021 [facility] mg/dL 1:45 PM [facility] Creatinine 0.70 0.55 - 06/01/2021 [facility] 1.02 mg/dL 1:45 PM [facility] GFR, Estimated >60 >60 06/01/2021 [facility] mL/min/1.7 1:45 PM [facility] 3m2 Glucose 130 (H) 70 - 100 06/01/2021 [facility] mg/dL 1:45 PM [facility] Comment: The given reference range is fo r the fasting state. Non-fasting reference range for glucose is 70 - 180 mg/dL. Hours Fasting 18 06/01/2021 1:45 PM GARNETT FIXER [facility] Specimen Anatomical Collection Method / Collection Time Recei keyur Time (Source) Location / Volume Laterality Blood Venipuncture / 06/01/2021 1:08 06/01/2021 1:28 Unknown PM GARNETT FIXER PM GARNETT FIXER Rahul Hdez PA-C LAB_1 Performing Organization Address City/State/ZIP Code Phon e Number [facility] [address] [place] [address] (ABNORMAL) 2018 Novel Coronavirus (COVID-19) - Collect in Clinic Today (06/01/2021 12:33 PM GARNETT FIXER) [facility] Method Time Signature COVID-19 Detected Not 06/02/2021 [facility] Interpretation (A) Detected 6:24 PM [facility] GARNETT FIXER Source Nares, left 06/02/2021 [facility] and right 6:24 PM [facility] GARNETT FIXER Specimen Anatomical Collection Method Collection Time Receive d Time (Source) Location / / Volume Laterality Swab (Source ENTIRE ANTERIOR Non-blood 06/01/2021 12:33 06/01/20 21 1:26 Required) NARIS / Unknown Collection / PM GARNETT FIXER PM GARNETT FIXER Unknown Narrative [facility] - 06/02/2021 6:24 PM GARNETT FIXER Test performed by Fuse Cutter Mediated Amplification. TMA has been shown to be equivalent to commercial real-time PCR t ests. This test has been authorized by the FDA under an Emergency Use Authorization (EUA) for use by authorized laboratories. [facility] LAB_1 Performing Organization Address City/State/ZIP Code Phon e Number [facility] [address] [address] documented in this encounter Visit Diagnoses Diagnosis Cough Tachycardia Tachycardia, unspecified Dehydration Vomiting, intractability of vomiting not specified, presence of nausea not specified, unspecified vomiting type Nausea Nausea alone Diarrhea, unspecified type Anemia, unspecified type Cough Plan of Care - Annelise Byrnes RN - 06/01/2021 1:59 PM CST Nausea resolved after Zofran, no signs or symptoms of reaction, IV intact. ETT FIXER documented in this encounter Administered Medications Inactive Administered Medications - up to 3 most recent administrations Medication Order MAR Action Action Date Dose Rate Site 0.9% sodium chloride solution Given 06/01/2021 1:20 PM GARNETT FIXER 1,000 mL 1,000 mL 1,000 mL, Intravenous, ONCE, On Sun06/01/21 at 1315, For 1 dose ondansetron (ZOFRAN) injection 4 mg Given 06/01/2021 1:25 PM GARNETT FIXER 4 mg 4 mg, Intravenous, ONCE, On Sun06/01/21 at 1315, For 1 dose documented in this encounter Additional Health Concerns Infection Onset Date Last Indicated Resolved Time R/O COVID19 06/01/2021 06/01/2021 06/02/2021 6:24 PM GARNETT FIXER documented as of this encounter Care Teams Shoe Repairer Apprentice Relationship Specialty Start Date End Date Shiraz Simeon PA-C PCP - General 03/02/16 [address] [place], [place] [address] documented as of this encounter
--- OUTSIDE RECORDS SUMMARY | 2022-06-08 11:07 | XMS_ITS | Encounter Summary ---
:1945 Author Organization [employer] Address [address] [place] [address] Care Team Providers Name Role Phone Shiraz Simeon PA-C Primary Care Provider Reason for Visit Reason Comments Verbal Orders Encounter Details Date Type Department Care Team Description 06/16/2021 Telephone [place] [facility] Shiraz Simeon PA-C Verbal Orders [address] [place] [address] [place] [address] [phone] (Wo rk) Social History Tobacco Use Types [...] care and verbal order given for PT. AL MILLER Josette Ashby MD - 06/16/2021 3:08 PM CST OK for PT as requested, please let them know. AL MILLER Belkis Paris LPN - 06/16/2021 1:46 PM CST Home care is calling and requesting referral for physical therapy, after having covid, will route delaney. AL MILLER Maximo Ruiz - 06/16/2021 12:08 PM CST [...] else I can help you with today? AL MILLER documented in this encounter Plan of Treatment Not on filedocumented as of this encounter Visit Diagnoses Not on filedocumented in this encounter Additional Health Concerns Infection Onset Date Last Indicated Resolved Time COVID19 06/01/2021 06/01/2021 06/21/2021 3:17 AM CEREAL MILLER documented as of this encounter Care Teams Ground Instructor Advanced Relationship Specialty Start Date End Date Shiraz Simeon PA-C PCP - General 03/02/16 [address] [place], [place] [address] documented as of this encounter
--- OUTSIDE RECORDS SUMMARY | 2022-06-08 11:07 | XMS_ITS | Encounter Summary ---
:1945 Author Organization [employer] Address [address] [place] [address] Care Team Providers Name Role Phone Shiraz Simeon PA-C Primary Care Provider Reason for Visit Reason Comments Refill sertraline (ZOLOFT) 100 MG t ablet [Pharmacy Med Name: SERTRALINE 100MG TABLETS]; omeprazole (PRILOS EC) 20 MG capsule [Pharmacy Med Name: OMEPRAZOLE 20MG CAPSULES] Encounter Details Date Type Department Care Team Description 03/22/2021 [facility]ill [place] [facility]-C Refill (sertraline [address] (ZOLOFT) [place] [address] [place] [address] [Pharmacy Med Name: [phone] (Wo rk) SERTRALINE 100MG TABLETS]; omeprazole (PRILOSEC) [...] CAPSULES] Medication started: 07/25/2016 Last ordered by SIHRAZ SIMEON: 07/12/2020 (253 days ago) QTY: 90, Refills: 2, Sig: take 1 capsule bymouth daily. take 1 hour before a meal (unchanged) -> An office visit is overdue (performed over 14 months ago, required every 12 months). Last qualifying visit: 01/16/2020 (with SHIRAZ SIMEON) Next scheduled visit: None Powered by [employer] by [employer], Reference: [id number], 03/22/2021 9:39:45 AM CDT, Pool:ARIANNE REFILL ([id number]) sertraline (ZOLOFT) 100 MG tablet [Pharmacy Med [...] scheduled visit: None Age: 75 Powered by [employer] by [employer], Reference: [id number], 03/22/2021 9:39:45 AM CDT, Pool:ARIANNE VALDEZ ([id number]) documented in this encounter Plan of Treatment Not on filedocumented as of this encounter Visit Diagnoses Not on filedocumented in this encounter Care Teams Product Handler Relationship Specialty Start Date End Date Shiraz Simeon PA-C PCP - General 03/02/16 [address] [place] [address] documented as of this encounter
--- OUTSIDE RECORDS SUMMARY | 2022-06-08 11:07 | XMS_ITS | Clinical Summary ---
:1945 [address] [facility] Address [address] [place] [address] Care Team Providers Name Role Phone Shiraz [...] for each transition of care or referral. [employer] Allergies Active Allergy Reactions Severity Noted Date [...] 2011. She is due to see her social sciences research scientist, and would like her labs done today [...] Type Specialty Care Team Description 05/28/2022 Refill [facility] Shiraz Simeon PA-C Refil l (traMADol (ULTRAM) 50 MG tablet) [facility] (traMADol (ULTRAM) 50 MG tablet [P harmacy Med Name: TRAMADOL 50MG TABLETS]) 03/14/2022 Telemedicine [facility] Shiraz Simeon PA-C Encou nter for Medicare [...] 06/22/2020, 04/29/2019, 1 , Highdose, 65+ Yrs (05813) 04/19/2017, 04/08/2015 Influenza IIV4 (Quadrivalent) 0.5mL 07/25/2016 (21589) Influenza, Unspecified Formulation 04/16/1997 PCV13 (Prevnar) 01/27/2015 [...] Comments Blood Pressure 100/62 06/01/2021 12:28 PM [facility] Pulse 124 06/01/2021 12:28 PM [facility] Temperature 36.6 ??C (97.8 ??F) 06/01/2021 12:28 PM [facility] Respiratory Rate 20 06/01/2021 12:28 PM [facility] Oxygen Saturation 97% 06/01/2021 12:28 PM [facility] Inhaled Oxygen Concentration - - Weight 47.6 [...] Addre ss Type Group BCBS BCBS MEDICARE [id number] 2021-Present [phone] Medicare ADVANTAGE Shruti Corbin Personal/Famil Self 1945 [address] (Home) [phone] [place] (Work) [address] Shruti Corbin Personal/Famil Self 1945 [phone] ([address]) [address] [phone] [place] (Work) [address] Care Teams Dividend Deposit Voucher Clerk Relationship Specialty Start Date End Date Shiraz Simeon PA-C PCP - General 03/02/[address] [place] [address]
--- OUTSIDE RECORDS SUMMARY | 2022-06-08 11:07 | XMS_ITS | Encounter Summary ---
:1945 Author Organization [employer] Address [address] [place] [address] Care Team Providers Name Role Phone Shiraz Simeon PA-C Primary Care Provider Reason for Visit Reason Onset Date Comments Refill 05/28/2022 traMADol (ULTRAM) 50 MG tablet Encounter Details Date Type Department Care Team Description 05/28/2022 [facility]ill [facility] Shiraz Simeon PA-C Refill (traMADol [address] (ULTRAM) 50 MG tablet) [place] [address] [place] [address] [phone] (Wo rk) Social History Tobacco Use Types [...] visit: None [employer] Embedded Refills, Reference: [id number], 05/28/2022 8:53:22 AM DIRECTOR OF PHOTOGRAPHY, Pool: ARIANNE REFILL ([id number]) CTOR OF PHOTOGRAPHY Interface, Out 9flats Prov Query - 05/28/2022 8:53 AM CST No Careplan note found by [employer]. 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
--- OUTSIDE RECORDS SUMMARY | 2022-06-08 11:07 | XMS_ITS | Encounter Summary ---
:1945 Author Organization [employer] Address [address] [place] [address] Care Team Providers Name Role Phone Shiraz Simeon PA-C Primary Care Provider Reason for Visit Reason Comments Refill traMADol (ULTRAM) 50 MG tabl et [Pharmacy Med Name: TRAMADOL 50MG TABLETS] Encounter Details Date Type Department Care Team Description 01/06/2021 Refill [facility] Shiraz Simeon PA-C Refill (traMADol [address] (ULTRAM) 50 MG tablet [place] [address] [place] [address] [Pharmacy Med Name: [phone] (Wo rk) TRAMADOL 50MG TABLETS]) Social History [...] SIMEON) Next scheduled visit: None Powered by [employer] by Met[employer]omx, Reference: [id number], 01/06/2021 9:46:51 AM CDT, Pool:ARIANNE VALDEZ ([id number]) Interface, Out Data Expedition Prov Query - 01/06/2021 9:46 AM CDT No Careplan note found by [employer]. documented in this encounter Plan of Treatment Not on filedocumented as of this encounter Visit Diagnoses Diagnosis Chronic right-sided low back pain with r ight-sided sciatica documented in this encounter Care Teams Corporate Accounting Manager Relationship Specialty Start Date End Date Shiraz Simeon PA-C PCP - General 03/02/16 [address] [place] [address] documented as of this encounter
--- OUTSIDE RECORDS SUMMARY | 2022-06-08 11:07 | XMS_ITS | Encounter Summary ---
:1945 Author Organization [employer] Address [address] [place] [address] Care Team Providers Name Role Phone Shiraz Simeon PA-C Primary Care Provider Reason for Visit Reason Comments Refill omeprazole (PRILOSEC) 20 MG capsule [Pharmacy Med Name: OMEPRAZOLE 20MG CAPSULES]; sertraline (ZOLOF T) 100 MG tablet [Pharmacy Med Name: SERTRALINE 100MG TABLETS] Encounter Details Date Type Department Care Team Description 06/19/2021 Refill [facility] Shiraz Simeon PA-C Refill (omeprazole [address] (PRILOSEC) [place] [address] [place] [address] [Pharmacy Med Name: [phone] (Wo rk) OMEPRAZOLE 20MG CAPSULES] ; sertraline [...] Request Already Responded To By Other Means CH LEADER Interface, Out Surescripts Prov Query - 06/19/2021 [...] SIMEON) Next scheduled visit: None Powered by [facility] by [employer], Reference: [id number], 06/19/2021 9:49:16 AM LAUNCH LEADER, Pool:ARIANNE REFILL ([id number]) sertraline (ZOLOFT) 100 MG tablet [Pharmacy Med [...] scheduled visit: None Age: 75 Powered by [employer] by [employer], Reference: [id number], 06/19/2021 9:49:16 AM LAUNCH LEADER, Pool:ARIANNE REFILL ([id number]) CH LEADER documented in this encounter Plan of Treatment Not on filedocumented as of this encounter Visit Diagnoses Diagnosis History of gastric ulcer Personal history of other diseases of di gestive system Generalized anxiety disorder (HRC) Generalized anxiety disorder documented in this encounter Additional Health Concerns Infection Onset Date Last Indicated Resolved Time COVID19 06/01/2021 06/01/2021 06/21/2021 3:17 AM LAUNCH LEADER documented as of this encounter Care Teams Invoice Clerk Relationship Specialty Start Date End Date Shiraz Simeon PA-C PCP - General 03/02/16 [address] [place], [place] [address] documented as of this encounter
--- OUTSIDE RECORDS SUMMARY | 2022-06-08 11:07 | XMS_ITS | Encounter Summary ---
:1945 Author Organization [employer] Address [address] [place] [address] Care Team Providers Name Role Phone Shiraz Simeon PA-C Primary Care Provider Reason for Visit Reason Comments Refill traMADol (ULTRAM) 50 MG tabl et [Pharmacy Med Name: TRAMADOL 50MG TABLETS] Encounter Details Date Type Department Care Team Description 05/10/2021 Refill [facility] Shiraz Simeon PA-C Refill (traMADol [address] (ULTRAM) 50 MG tablet [place] [address] [place] [address] [Pharmacy Med Name: [phone] (Wo rk) TRAMADOL 50MG TABLETS]) Social History Tobacco Use Types Packs/Day Years Used Date Smoking Tobacco: Every Day Cigarettes 0.3 Smokeless Tobacco: Never Alcohol Use Standard Drinks/Week Comments No 0 (1 standard drink = 0.6 oz pure alcoho l) Sex Assigned at Date Recorded Not on file documented as of this encounter Nursing Notes Shiraz Simeon PA-C - 05/11/2021 5:52 PM CST faxed ING MANAGER Interface, Out Surescripts Prov Query - 05/10/2021 [...] SIMEON) Next scheduled visit: None Powered by Visonys by olook, Reference: [id number], 05/10/2021 9:58:06 AM WELDING MANAGER, Clif:ARIANNE VALDEZ ([id number]) ING MANAGER Interface, Out SurescCayenne Medical Prov Query - 05/10/2021 9:58 AM CST No Careplan note found by TPACK. ING MANAGER documented in this encounter Plan of Treatment Not on filedocumented as of this encounter Visit Diagnoses Diagnosis Chronic right-sided low back pain with r ight-sided sciatica documented in this encounter Care Teams Mender Knit Goods Relationship Specialty Start Date End Date Shiraz Simeon PA-C PCP - General 03/02/16 [address] [place] [address] documented as of this encounter
--- OUTSIDE RECORDS SUMMARY | 2022-06-08 11:07 | XMS_ITS | Encounter Summary ---
:1945 Author Organization [employer] Address [address] [place] [address] Care Team Providers Name Role Phone Shiraz Simeon PA-C Primary Care Provider Reason for Visit Reason Comments COVID Test Results Encounter Details Date Type Department Care Team Description 06/02/2021 Telephone [facility] COVID Test Results Urgent Care [address] [address] [place] [address] [phone] (Wo rk) Social History Tobacco Use Types [...] seconds, or use an alcohol- based hand tile layer supervisor containing at least 60% alcohol. Avoid touching [...] prisons, or shelters. - Work in healthcare, fci care, or corrections. o For all other [...] Disease Control (CDC), [place] Department of Health ([facility]), and [employer] websites for further information on Coronavirus. ??? [...] For [place] patients - direct them to [facility] site to complete screening. - Established patient: ??? Follow standing order for Monoclonal Antibody Treatment: o Place order for CASIRIVIMAB-IMDEVIMAB 600-600 MG o For [place] patients - direct patient to [facility] site to complete screening - [facility] site: [facility].[place]./diseases/coronavirus/meds o What to expect at the clinic visit: - If covid testing results are not in our system, bring results to clinic visit. - Administration: Four sub-Q injections (if at [facility]) - Medication: Regen-Cov (medication doesn???t have any [...] or break from your cough. Use an wtcj-whm-gqdrxcv cough medication that contains dextromethorphan(such as Delsym??) sparingly. 06/03/2021, 10:17 AM PROGRAMMER REMOTE Marleni Barahona - 06/02/2021 7:45 PM CST Lab Results Component Value Date CORONAV Detected (A) 06/01/2021 Lab Status: @RULEERRMSG([id number])@ PROGRAMMER REMOTE documented in this encounter Plan of Treatment Not on filedocumented as of this encounter Visit Diagnoses Diagnosis Infection due to 2019 novel coronavirus - Primary documented in this encounter Additional Health Concerns Infection Onset Date Last Indicated Resolved Time R/O COVID19 06/01/2021 06/01/2021 06/02/2021 6:24 PM SAS PROGRAMMER REMOTE COVID19 06/01/2021 06/01/2021 06/21/2021 3:17 AM SAS PROGRAMMER REMOTE documented as of this encounter Care Teams Deputy Clerk Relationship Specialty Start Date End Date Shiraz Simeon PA-C PCP - General 03/02/16 [address] [place], [place] [address] documented as of this encounter
--- OUTSIDE RECORDS SUMMARY | 2022-06-08 11:07 | XMS_ITS | Encounter Summary ---
:1945 Author Organization [email or web address] Address [address] [place] [address] Care Team Providers Name Role Phone Shiraz Simeon PA-C Primary Care Provider Reason for Visit Reason Comments Orders Needed Encounter Details Date Type Department Care Team Description 06/17/2021 Telephone [facility] Shiraz Simeon PA-C Orders Needed [address] [place] [address] [place] [address] [phone] (Wo rk) Social History Tobacco Use Types Packs/Day Years Used Date Smoking Tobacco: Every Day Cigarettes 0.3 Smokeless Tobacco: Never Alcohol Use Standard Drinks/Week Comments No 0 (1 standard drink = 0.6 oz pure alcoho l) Sex Assigned at Date Recorded Not on file documented as of this encounter Nursing Notes Shiraz Simeon PA-C - 06/22/2021 5:20 PM CST OK, verbal order given. ICAL MENTAL HEALTH COUNSELOR Peggy Diallo MA - 06/20/2021 9:55 AM CST Verbal order given. Please sign. ICAL MENTAL HEALTH COUNSELOR Dorys Calles - 06/17/2021 4:27 PM CST [...] I can help you with today? No ICAL MENTAL HEALTH COUNSELOR documented in this encounter Plan of Treatment Not on filedocumented as of this encounter Visit Diagnoses Not on filedocumented in this encounter Additional Health Concerns Infection Onset Date Last Indicated Resolved Time COVID19 06/01/2021 06/01/2021 06/21/2021 3:17 AM CLINICAL MENTAL HEALTH COUNSELOR documented as of this encounter Care Teams Washer Operator Relationship Specialty Start Date End Date Shiraz Simeon PA-C PCP - General 03/02/[address] [place] [address] documented as of this encounter
--- OUTSIDE RECORDS SUMMARY | 2022-06-08 11:07 | XMS_ITS | Encounter Summary ---
:1945 Author Organization [employer] Address [address] [place] [address] Care Team Providers Name Role Phone Shiraz Simeon PA-C Primary Care Provider Reason for Visit Reason Comments Refill gabapentin (NEURONTIN) 400 M G capsule [Pharmacy Med Name: GABAPENTIN 400MG CAPSULES] Encounter Details Date Type Department Care Team Description 07/11/2020 Refill [facility] Shiraz Simeon PA-C Refill (gabapentin [address] (NEURONTIN) [address] [place] [address] [place] [address] capsule [Pharmacy Med [phone] (Wo rk) Name: GABAPENTIN 400MG CAPSULES] ) [...] PA-C - 07/12/2020 3:07 PM CST faxed THCARE APPLICATIONS ANALYST Interface, Out Surescripts Prov Query - 07/11/2020 [...] SIMEON) Next scheduled visit: None Powered by EntraTympanic, Reference: [id number], 07/11/2020 9:44:08 AM Kyler LALA ([id number]) Electronically signed by Interface, Out ShellySafariDeskcatherineLefthand Networks Prov Query at 07/12/2020 3:07 PM HEALTHCARE APPLICATIONS ANALYST documented in this encounter Plan of Treatment Not on filedocumented as of this encounter Visit Diagnoses Diagnosis Restless legs syndrome (RLS) documented in this encounter Care Teams Documentation Nurse Relationship Specialty Start Date End Date Shiraz Simeon PA-C PCP - General 03/02/16 [address] [place], [place] [address] documented as of this encounter
--- OUTSIDE RECORDS SUMMARY | 2022-06-08 11:07 | XMS_ITS | Encounter Summary ---
:1945 Author Organization [employer] Address [address] [place] [address] Care Team Providers Name Role Phone Shiraz Simeon PA-C Primary Care Provider Reason for Visit Reason Comments Refill gabapentin (NEURONTIN) 400 M G capsule [Pharmacy Med Name: GABAPENTIN 400MG CAPSULES] Encounter Details Date Type Department Care Team Description 03/22/2021 Refill [facility] Shiraz Simeon PA-C Refill (gabapentin [address] (NEURONTIN) [address] [place] [address] [place] [address] capsule [Pharmacy Med [phone] (Wo rk) Name: GABAPENTIN 400MG CAPSULES] ) [...] Rx Final quick action to address request. Tmai Oquendo - 03/22/2021 6:22 PM CDT Medication [...] SIMEON) Next scheduled visit: None Powered by Amb[employer]ch by [employer], Reference: [id number], 03/22/2021 9:39:45 AM CDT, Pool:ARIANNE JARAMILLOILL ([id number]) Electronically signed by Interface, Out SurescriPureflection Day Spa & Hair Studio Prov Query at 03/24/2021 4:03 PM CDT documented in this encounter Plan of Treatment Not on filedocumented as of this encounter Visit Diagnoses Diagnosis History of gastric ulcer Personal history of other diseases of di gestive system Generalized anxiety disorder (HRC) Generalized anxiety disorder Restless legs syndrome (RLS) documented in this encounter Care Teams Route Contractor Relationship Specialty Start Date End Date Shiraz Simeon, MARYC PCP - General 03/02/16 [address] [place] [address] documented as of this encounter
--- OUTSIDE RECORDS SUMMARY | 2022-06-08 11:07 | XMS_ITS | Encounter Summary ---
:1945 Author Organization [employer] Address [address] [place] [address] Care Team Providers Name Role Phone Shiraz Simeon PA-C Primary Care Provider Reason for Visit Reason Comments Follow-up Encounter Details Date Type Department Care Team Description 06/13[facility] Follow-up [address] [place] [address] [place] [address] [phone] (Wo rk) Social History Tobacco Use Types [...] PA-C will follow patient for home care. [facility] Shiraz Simeon PA-C - 06/14/2021 3:21 PM CST Yes I will follow her for home care [facility] Roberto Conn - 06/14/2021 2:03 PM CST [facility] is calling to check if PCP will follow pt for home care, needs to know tram because planning to see pt tomorrow. Needs to know today otherwise wont be able to see pt tomorrow. [facility] Veronica Hernandez RN - 06/13/2021 11:16 AM CST Clinician Action: Input needed regarding ongoing before and after school daycare worker Next Step: Route to [facility] pool to follow up and Patient IS expecting a call back fromcare team Specific Request(s): 1. Cecille from home care wondering if PCP would follow pt during home care. Pt was d/c from hospital due to COVID. [facility] Francisca Little - 06/13/2021 11:02 AM CST [...] to: Appropriate pool per call routing grid [facility] documented in this encounter Plan of Treatment Not on filedocumented as of this encounter Visit Diagnoses Not on filedocumented in this encounter Additional Health Concerns Infection Onset Date Last Indicated Resolved Time COVID19 06/01/2021 06/01/2021 06/21/2021 3:17 AM SUPERVISOR LABORATORY documented as of this encounter Care Teams Survey Research Teacher Relationship Specialty Start Date End Date Shiraz Simeon PA-C PCP - General 03/02/16 [address] [place] [address] documented as of this encounter
--- OUTSIDE RECORDS SUMMARY | 2022-06-08 11:07 | XMS_ITS | Encounter Summary ---
:1945 Author Organization [employer] Address [address] [place] [address] Care Team Providers Name Role Phone Shiraz Simeon PA-C Primary Care Provider Reason for Visit Reason Comments Verbal Orders Encounter Details Date Type Department Care Team Description 07/05/2021 Telephone [place] [facility] Medicleeanne e Shiraz Simeon PA-C Verbal Orders [address] [place] [address] [place] [address] [phone] (Wo rk) Social History Tobacco Use Types [...] PT from patients provider Shiraz Simeon PA-C. EAR SUPERVISING OPERATOR Shiraz Simeon PA-C - 07/06/2021 12:10 PM CST Please call in verbal order for PT EAR SUPERVISING OPERATOR Belkis Paris LPN - 07/05/2021 2:25 PM CST Home care calling([facility]) requesting home care for physical therapy, patient diagnosed with covid, requesting verbal order, will route to provider Shiraz Simeon PA-C. EAR SUPERVISING OPERATOR Chelsi Leon - 07/05/2021 1:41 PM CST [...] else I can help you with today? EAR SUPERVISING OPERATOR documented in this encounter Plan of Treatment Not on filedocumented as of this encounter Visit Diagnoses Not on filedocumented in this encounter Care Teams Block Breaker Operator Relationship Specialty Start Date End Date Shiraz Simeon PA-C PCP - General 03/02/16 [address] [place], [place] [address] documented as of this encounter
--- OUTSIDE RECORDS SUMMARY | 2022-06-08 11:07 | XMS_ITS | Encounter Summary ---
:1945 Author [facility] Address [address] [place] [address] Care Team Providers Name Role Phone Shiraz Simeon PA-C Primary Care Provider Reason for Visit Procedure/Equipment (Routine) - Incomplete Specialty Diagnoses / Procedures Referred By Contact Refer red To Contact Diagnoses Cough Rahul Hdez PA-C Procedures XR Chest 2 Views [address] [place] [address] Referral ID Status Reason Start Date Expiration Date Visits V isits Requested Authorized [id number] Incomplete 06/01/2021 08/31/2022 1 1 Encounter Details Date Type Department Care Team Description 06/01/2021 Ancillary Procedure Brigette Bro S S, Cough [address] Radiology PA-C [address] [facility] [address] [facility] [place] [address] [phone] Social History Tobacco Use Types Packs/Day Years [...] 1:09 PM Cough Resul ts for this TIRE CENTER SUPERVISOR procedure are i n the results section. documented in this encounter Results XR Chest 2 Views (06/01/2021 1:09 PM TIRE CENTER SUPERVISOR) Anatomical Region Laterality Modality Chest, Lung Digital Radiography Specimen (Source) Anatomical Collection Method Collection Time Re ceived Time Location / / Volume Laterality 06/01/2021 12:57 PM TIRE CENTER SUPERVISOR Impressions 06/01/2021 1:12 PM TIRE CENTER SUPERVISOR COMPARISON: ??None. FINDINGS: ??Two views were obtained. [...] R/O COVID19 06/01/2021 06/01/2021 06/02/2021 6:24 PM TIRE CENTER SUPERVISOR documented as of this encounter Care Teams Blood Bank Business Manager Relationship Specialty Start Date End Date Shiraz Simeon PA-C PCP - General 03/02/16 [address] [place] [address] documented as of this encounter
--- OUTSIDE RECORDS SUMMARY | 2022-06-08 11:07 | XMS_ITS | Encounter Summary ---
:1945 Author Organization [employer] Address [address] [place] [address] Care Team Providers Name Role Phone Shiraz Simeon PA-C Primary Care Provider Reason for Visit Reason Comments Verbal Orders Encounter Details Date Type Department Care Team Description 06/30/2021 Telephone [facility] Shiraz Simeon PA-C Verbal Orders [address] [place] [address] [place] [address] [phone] (Wo rk) Social History Tobacco Use Types [...] verbal order given to [facility], as requested. NISTRATIVE SUPPORT ASSOCIATE Shiraz Simeon PA-C - 06/30/2021 2:50 PM CST Please call in verbal order for home care NISTRATIVE SUPPORT ASSOCIATE Belkis Paris LPN - 06/30/2021 1:32 PM CST Call received from [facility] at [facility] for verbal order from provider for home care, patient has changed insurance, will route to Provider. NISTRATIVE SUPPORT ASSOCIATE Mindi Hughes - 06/30/2021 1:25 PM CST [...] else I can help you with today? NISTRATIVE SUPPORT ASSOCIATE documented in this encounter Plan of Treatment Not on filedocumented as of this encounter Visit Diagnoses Not on filedocumented in this encounter Care Teams Real Estate Clerk Relationship Specialty Start Date End Date Shiraz Simeon PA-C PCP - General 03/02/16 [address] [place], [place] [address] documented as of this encounter
--- OUTSIDE RECORDS SUMMARY | 2022-06-08 11:07 | XMS_ITS | Encounter Summary ---
:1945 Author Organization [email or web address] Address [address] [place] [address] Care Team Providers Name Role Phone Shiraz Simeon PA-C Primary Care Provider Reason for Visit Reason Comments Refill traMADol (ULTRAM) 50 MG tabl et [Pharmacy Med Name: TRAMADOL 50MG TABLETS] Encounter Details Date Type Department Care Team Description 02/27/2021 Refill [facility] Shiraz Simeon PA-C Refill (traMADol [address] (ULTRAM) 50 MG tablet [place] [address] [place] [address] [Pharmacy Med Name: [phone] (Wo rk) TRAMADOL 50MG TABLETS]) Social History [...] SIMEON) Next scheduled visit: None Powered by [employer] by [employer]avi, Reference: [id number], 02/27/2021 11:13:06 AM CDT, Pool: ARIANNE VALDEZ ([id number]) Interface, Out BoatsGo Prov Query - 02/27/2021 11:13 AM CDT No Careplan note found by Note. 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
--- OUTSIDE RECORDS SUMMARY | 2022-06-08 11:08 | XMS_ITS | Encounter Summary ---
:1945 Author Organization [employer] Address [address] [place] [address] Care Team Providers Name Role Phone Nette Simeon PA-C Primary Care Provider Reason for Visit Reason Comments Prior Authorization For Medication pa needed for trama dol Encounter Details Date Type Department Care Team Description 10/02/2018 Telephone [facility] Nette Simeon, Prior Authorization For [address] PA-C Medication (pa needed for [place] [address] tramadol) [phone] [place] [address] Social History Tobacco Use Types Packs/Day Years [...] nette fowler Drug Name/Strength: tramadol 50mg Drug [facility]: [id number] Si bid for pain Formulary Alternative: none given Insurance Carrier and phone number: felicita [phone] Felicita is giving a plan limit of 7 day maximum. Please do a prior auth for the 90 day supply with the insurance listed above. thank you documented in this encounter Plan of Treatment Not on filedocumented as of this encounter Visit Diagnoses Not on filedocumented in this encounter Care Teams Digital Composer Relationship Specialty Start Date End Date Nette Simeon PA-C PCP - General 03/02/[address] [place] [address] documented as of this encounter
--- OUTSIDE RECORDS SUMMARY | 2022-06-08 11:08 | XMS_ITS | Encounter Summary ---
:1945 Author Organization [employer] Address [address] [place] [address] Care Team Providers Name Role Phone Shiraz Simeon PA-C Primary Care Provider Reason for Visit Reason Comments Refill gabapentin (NEURONTIN) 400 M G capsule [Pharmacy Med Name: GABAPENTIN 400MG CAPS] Encounter Details Date Type Department Care Team Description 08/09/2017 Refill [facility] Shiraz Simeon PA-C Refill (gabapentin [address] (NEURONTIN) 400 [place] [address] [place] [address] capsule [Pharmacy Med [phone] (Wo rk) Name: GABAPENTIN 400MG CAPS]) Social [...] for the pt. To schedule an appt. LATION SPRAYER Ara Burns RN - 08/10/2017 3:45 PM [...] Provider: SHIRAZ SIMEON Ordering User: ARA BURNS LATION SPRAYER Interface, Out Surescripts Prov Query - 08/09/2017 [...] SIMEON) Next scheduled visit: None Powered by [employer], Reference: [id number], 08/09/2017 7:33:17 AM SPIKE, Clif: ARIANNE REFILL ([id number]) LATION SPRAYER documented in this encounter Plan of Treatment Not on filedocumented as of this encounter Visit Diagnoses Not on filedocumented in this encounter Care Teams Food Stylist Relationship Specialty Start Date End Date Shiraz Simeon PA-C PCP - General 03/02/16 [address] [place], [place] [address] documented as of this encounter
--- OUTSIDE RECORDS SUMMARY | 2022-06-08 11:08 | XMS_ITS | Encounter Summary ---
:1945 Author Organization [email or web address] Address [address] [place] [address] Care Team Providers Name Role Phone Shiraz Simeon PA-C Primary Care Provider Reason for Visit Reason Onset Date Comments Refill 05/26/2020 traMADol (ULTRAM) 50 MG tablet Encounter Details Date Type Department Care Team Description 05/26/2020 Refill [facility] Shiraz Simeon PA-C Refill (traMADol [address] (ULTRAM) 50 MG tablet) [place] [address] [place] [address] [phone] (Wo rk) Social History Tobacco Use Types Packs/Day Years Used Date Smoking Tobacco: Every Day Cigarettes 0.3 Smokeless Tobacco: Never Alcohol Use Standard Drinks/Week Comments No 0 (1 standard drink = 0.6 oz pure alcoho l) Sex Assigned at Date Recorded Not on file documented as of this encounter Nursing Notes Shiraz Simeon PA-C - 05/26/2020 7:24 PM CST faxed MINER BLASTING Interface, Out Surescripts Prov Query - 05/26/2020 2:56 PM CST traMADol (ULTRAM) 50 MG tablet Medication started: 01/27/2015 Last ordered by SHIRAZ SIMEON: 01/16/2020 (131 days ago) QTY: 90, Refills: 0, Sig: take 1 tablet by mouth every 8 hours as needed for pain. (unchanged) -> Medication cannot be delegated. Last qualifying visit: 01/16/2020 (with SHIRAZ SIMEON) Next scheduled visit: None Powered by [employer], Reference: [id number], 05/26/2020 2:56:29 PM ORE MINER BLASTING, Pool: ARIANNE REFILL ([id number]) MINER BLASTING Interface, Out Cumulux Prov Query - 05/26/2020 2:56 PM CST No Careplan note found by [employer]. 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
--- OUTSIDE RECORDS SUMMARY | 2022-06-08 11:08 | XMS_ITS | Encounter Summary ---
:1945 Author Organization [employer] Address [address] [place] [address] Care Team Providers Name Role Phone Shiraz Simeon PA-C Primary Care Provider Reason for Visit Reason Comments Refill gabapentin (NEURONTIN) 400 M G capsule [Pharmacy Med Name: GABAPENTIN 400MG CAPS] Encounter Details Date Type Department Care Team Description 03/31/2018 Refill [facility] Shiraz Simeon PA-C Refill (gabapentin [address] (NEURONTIN) [address] [place] [address] [place] [address] capsule [Pharmacy Med [phone] (Wo rk) Name: GABAPENTIN 400MG CAPS]) Social [...] SIMEON) Next scheduled visit: None Powered by algrano, Reference: [id number], 03/31/2018 4:02:56 PM CDT, Pool: ARIANNE REFILL ([id number]) documented in this encounter Plan of Treatment Not on filedocumented as of this encounter Visit Diagnoses Not on filedocumented in this encounter Care Teams Sagger Soak Relationship Specialty Start Date End Date Shiraz Simeon, KENISHA PCP - General 03/02/16 [address] [place] [address] documented as of this encounter
--- OUTSIDE RECORDS SUMMARY | 2022-06-08 11:08 | XMS_ITS | Encounter Summary ---
:1945 Author Organization [facility] Address [address] [place] [address] Care Team Providers Name Role Phone Shiraz Simeon PA-C Primary Care Provider Encounter Details Date Type Department Care Team Description 04/17/2018 Lab Visit [facility] Iron deficiency anemia, unsp ecified iron deficiency anemia type; [address] Screening cholesterol level; [place] [address] Need for hepatitis C screeni ng test [phone] Social History Tobacco Use Types Packs/Day Years [...] - 04/17/2018 1:39 PM CDT Performed at [facility] [address] [place] [address] CLIA number [id number] Shiraz Simeon PA-C LAB_1 Performing Organization Address City/[facility] Phon e Number PN SOFT [address] [place] [address] [phone] Lipid Panel - LDLD If Trig High [...] - 04/17/2018 11:29 AM CDT Performed at [facility], [address] [place] [address] CLIA number [id number] Shiraz Simeon PA-C LAB_1 Performing Organization Address City/[facility] Phon e Number PN SOFT [address] [place] [address] (ABNORMAL) Hemoglobin (04/17/2018 8:41 AM CDT) P athologist Signature Hemoglobin 9.5 (L) 11.8 - 15.5 PN SOFT g/dL Specimen Anatomical Collection Method Collection Time Receive d Time (Source) Location / / Volume Laterality 04/17/2018 8:41 AM 8 8:41 CDT AM CDT Narrative PN SOFT - 04/17/2018 9:08 AM CDT Performed at [facility], [address] [place], [place] [address] [address] CLIA number [id number] Shiraz Simeon PA-C LAB_1 Performing Organization Address [facility]/ZIP [facility] Phon e Number PN SOFT [address] [place] [address] (ABNORMAL) Ferritin (04/17/2018 8:41 AM CDT) P athologist Signature Ferritin Serum 5 (L) 9 - 204 PN SOFT ng/mL Specimen Anatomical Collection Method Collection Time Receive d Time (Source) Location / / Volume Laterality 04/17/2018 8:41 AM 8 CDT 12:05 PM CDT Narrative PN SOFT - 04/17/2018 1:10 PM CDT Performed at [facility], [facility] [place] [address] CLIA number [id number] Shiraz Simeon PA-C LAB_1 Performing Organization Address [facility] Phon e Number PN SOFT [address] [place] [address] [phone] documented in this encounter Visit Diagnoses Diagnosis Iron deficiency anemia, unspecified iron deficiency anemia type Screening cholesterol level Screening for lipoid disorders Need for hepatitis C screening test Special screening examination for other specified viral diseases documented in this encounter Care Teams Center Machine Set Up Operator Relationship Specialty Start Date End Date Shiraz Simeon PA-C PCP - General 03/02/16 [facility] [address] documented as of this encounter
--- OUTSIDE RECORDS SUMMARY | 2022-06-08 11:08 | XMS_ITS | Encounter Summary ---
:1945 Author Organization [facility] Address [address] [place] [address] Care Team Providers Name Role Phone Shiraz Simeon PA-C Primary Care Provider Reason for Visit Reason Comments Refill sertraline (ZOLOFT) 100 MG t ablet [Pharmacy Med Name: SERTRALINE 100MG TABLETS]; omeprazole (PRILOS EC) 20 MG capsule [Pharmacy Med Name: OMEPRAZOLE 20MG CAPSULES] Encounter Details Date Type Department Care Team Description 07/11/2020 Refill [facility] Shiraz Simeon PA-C Refill (sertraline [address] (ZOLOFT) [place] [address] [place] [address] [Pharmacy Med Name: [phone] (Wo rk) SERTRALINE 100MG TABLETS]; omeprazole (PRILOSEC) [...] Sig: TAKE 1 TABLET BY MOUTH DAILY. RINTENDENT SEED MILL Interface, Out Surescripts Prov Query - 07/11/2020 [...] SIMEON) Next scheduled visit: None Powered by [facility], Reference: [id number], 07/11/2020 9:44:08 AM SPIKE, Pool: ARIANNE REFILL ([id number]) sertraline (ZOLOFT) 100 MG tablet [Pharmacy Med [...] scheduled visit: None Age: 74 Powered by [employer], Reference: [id number], 07/11/2020 9:44:08 AM SUPERINTENDENT SEED MILL, Pool: ARIANNE REFILL ([id number]) RINTENDENT SEED MILL documented in this encounter Plan of Treatment Not on filedocumented as of this encounter Visit Diagnoses Diagnosis Restless legs syndrome (RLS) History of gastric ulcer Personal history of other diseases of di gestive system Generalized anxiety disorder (HRC) Generalized anxiety disorder documented in this encounter Care Teams Nail Professional Relationship Specialty Start Date End Date Shiraz Simeon PAMisbahC PCP - General 03/02/16 [address] [place], [place] [address] documented as of this encounter
--- OUTSIDE RECORDS SUMMARY | 2022-06-08 11:08 | XMS_ITS | Encounter Summary ---
:1945 Author Organization [facility] Address [address] [place] [address] Care Team Providers Name Role Phone Shiraz Simeon PA-C Primary Care Provider Reason for Visit Reason Comments Refill lisinopril (ZESTRIL) 10 MG t ablet [Pharmacy Med Name: LISINOPRIL 10MG TABLETS] Encounter Details Date Type Department Care Team Description 10/22/2019 Refill [facility] Shiraz Simeon PA-C Refill (lisinopril [address] (ZESTRIL) 10 MG tablet [place] [address] [place] [address] [Pharmacy Med Name: [phone] (Wo rk) LISINOPRIL 10MG TABLETS]) Social History [...] TABLETS] 90 Tablet Sig: TEST Interface, Out mgMEDIA Query - 10/22/2019 5:21 PM CDT lisinopril [...] Not found K: Not found Powered by [employer], Reference: [id number], 10/22/2019 5:21:05 PM CDT, Clif: ARIANNE REFILL ([id number]) documented in this encounter Plan of Treatment Not on filedocumented as of this encounter Visit Diagnoses Not on filedocumented in this encounter Care Teams Fireworks Maker Relationship Specialty Start Date End Date Shiraz Simeon PA-C PCP - General 03/02/[address] [place] [address] documented as of this encounter
--- OUTSIDE RECORDS SUMMARY | 2022-06-08 11:08 | XMS_ITS | Encounter Summary ---
:1945 Author Organization [facility] Address [address] [place] [address] Care Team Providers Name Role Phone Shiraz [...] Type Department Care Team Description 02/25/2019 Telephone [facility] Shiraz Pizano, Other (Per the new [address] KENISHA opioid legisltion we [place] [address] [address] need new prescription [phone] [place] [address] for patient's tramadol [phone] 50mg. We know t here are (Work) refills but because of [phone] her not filling her (Fax) medication with [...] sciatica documented in this encounter Care Teams Steel Post Installer Relationship Specialty Start Date End Date Shiraz Simeon PA-C PCP - General 03/02/16 [address] [place] [address] documented as of this encounter
--- OUTSIDE RECORDS SUMMARY | 2022-06-08 11:08 | XMS_ITS | Encounter Summary ---
:1945 Author Organization [facility] Address [address] [place] [address] Care Team Providers Name Role Phone Shiraz Simeon PA-C Primary Care Provider Reason for Visit Reason Comments Refill traMADol (ULTRAM) 50 MG tabl et [Pharmacy Med Name: TRAMADOL HCL 50MG TABS] Encounter Details Date Type Department Care Team Description 06/02/2019 Refill [facility] Shiraz Simeon PA-C Refill (traMADol [address] (ULTRAM) 50 MG tablet [place] [address] [place] [address] [Pharmacy Med Name: [phone] (Wo rk) TRAMADOL HCL 50MG TABS]) Social [...] PA-C - 06/03/2019 5:18 PM CST faxed T METAL ASSEMBLER Interface, Out Surescripts Prov Query - 06/02/2019 [...] SIMEON) Next scheduled visit: None Powered by [employer], Reference: [id number], 06/02/2019 2:11:54 PM SHEET METAL ASSEMBLER, Pool: ARIANNE REFILL ([id number]) T METAL ASSEMBLER Interface, Out AFINOS Prov Query - 06/02/2019 2:11 PM CST No Careplan note found by [employer]. T METAL ASSEMBLER documented in this encounter Plan of Treatment Not on filedocumented as of this encounter Visit Diagnoses Diagnosis Chronic right-sided low back pain with r ight-sided sciatica documented in this encounter Care Teams Dental Hygiene Instructor Relationship Specialty Start Date End Date Shiraz Simeon, KENISHA PCP - General 03/02/16 [address] [place] [address] documented as of this encounter
--- OUTSIDE RECORDS SUMMARY | 2022-06-08 11:08 | XMS_ITS | Encounter Summary ---
:1945 Author Organization [facility] Address [address] [place] [address] Care Team Providers Name Role Phone Shiraz Simeon PA-C Primary Care Provider Reason for Visit Reason Comments Refill sertraline (ZOLOFT) 100 MG t ablet [Pharmacy Med Name: SERTRALINE HCL 100MG TABS] Encounter Details Date Type Department Care Team Description 07/10/2018 Refill [facility] Shiraz Simeon PA-C Refill (sertraline [address] (ZOLOFT) 100 MG tablet [place] [address] [place] [address] [Pharmacy Med Name: [phone] (Wo rk) SERTRALINE HCL 100MG TABS]) Social [...] 70 mm Hg on 04/17/2018 Powered by [employer], Reference: [id number], 07/10/2018 8:47:16 AM SPIKE, Clif: ARIANNE REFILL ([id number]) R CUTTER documented in this encounter Plan of Treatment Not on filedocumented as of this encounter Visit Diagnoses Not on filedocumented in this encounter Care Teams Urgent Care Relationship Specialty Start Date End Date Shiraz Simeon, PAMisbahC PCP - General 03/02/16 [address] [place], [place] [address] documented as of this encounter
--- OUTSIDE RECORDS SUMMARY | 2022-06-08 11:08 | XMS_ITS | Encounter Summary ---
:1945 Author Organization [facility] Address [address] [place] [address] Care Team Providers Name Role Phone Shiraz Simeon PA-C Primary Care Provider Reason for Visit Reason Onset Date Comments Phone Visit 01/21/2020 Encounter Details Date Type Department Care Team Description 01/16/2020 Telemedicine [facility] Shiraz Simeon Chronic right-sided Medicine [place] [address] [employer] [address] [place] [address] [place] [address] [place] [address] (Primary Dx) [phone] Social History Tobacco Use Types Packs/Day Years [...] Primary documented in this encounter Care Teams Manager Of Manufacturing Relationship Specialty Start Date End Date Shiraz Simeon PA-C PCP - General 03/02/[address] [place] [address] documented as of this encounter
--- OUTSIDE RECORDS SUMMARY | 2022-06-08 11:08 | XMS_ITS | Encounter Summary ---
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 Exercises regularly. She denies any adverse effects [...] 8 hours as needed for Pain. [place] EVENTS SPECIALIST reivewed and negative for concern. She may [...] Primary documented in this encounter Care Teams Lead Process Engineer Relationship Specialty Start Date End Date Shiraz Simeon PA-C PCP - General 03/02/[address] [place] [address] documented as of this encounter
--- OUTSIDE RECORDS SUMMARY | 2022-06-08 11:08 | XMS_ITS | Encounter Summary ---
:1945 Author Organization [facility] Address [address] [place] [address] Care Team Providers Name Role Phone Shiraz Simeon PA-C Primary Care Provider Reason for Visit Reason Comments MEDICATION CHECK Encounter Details Date Type Department Care Team Description 04/29/2019 Office Visit [facility] Shiraz Simeon, Restless legs syndrome (RLS) ; [address] PA-C History of gastric ulcer; [place] [address] Generalized anxiety disorder; [phone] [place] [address] Chronic right-sided low back pain with r [...] to do. Denies any radicular symptoms. [place] PROCESS CONTROL TECHNICIAN reviewed and negative for concern. Restless Leg [...] Influenza IIV3 (Trivalent) Fluzone Highdose, 65+ Yrs (47700) - Zoster (Shingrix) Counseling completed for all [...] sciatica documented in this encounter Care Teams Health Information Management Director Relationship Specialty Start Date End Date Shiraz Simeon PA-C PCP - General 03/02/16 [address] [place], [place] [address] documented as of this encounter
--- OUTSIDE RECORDS SUMMARY | 2022-06-08 11:08 | XMS_ITS | Encounter Summary ---
:1945 Author Organization [employer] Address [address] [place] [address] Care Team Providers Name Role Phone Shiraz Simeon PA-C Primary Care Provider Reason for Visit Reason Comments Prior Authorization Request Encounter Details Date Type Department Care Team Description 10/04/2018 Telephone [facility] Shiraz Simeon, Prior Authorization [address] PA-C Request [place] [address] [address] [phone] [place] [id number] Social History Tobacco Use Types Packs/Day Years [...] on filedocumented in this encounter Care Teams Heart Nurse Relationship Specialty Start Date End Date Shiraz Simeon PA-C PCP - General 03/02/[address] [place] [place] [place] [address] documented as of this encounter
--- OUTSIDE RECORDS SUMMARY | 2022-06-08 11:08 | XMS_ITS | Encounter Summary ---
:1945 Author Organization [employer] Address [address] [place] [address] Care Team Providers Name Role Phone Shiraz Simeon PA-C Primary Care Provider Reason for Visit Reason Comments Refill traMADol (ULTRAM) 50 MG tabl et [Pharmacy Med Name: TRAMADOL HCL 50MG TABS] Encounter Details Date Type Department Care Team Description 12/14/2017 Refill [facility] Shiraz Simeon PA-C Refill (traMADol [address] (ULTRAM) 50 MG tablet [place] [address] [place] [address] [Pharmacy Med Name: [phone] (Wo rk) TRAMADOL HCL 50MG TABS]) Social [...] SIMEON) Next scheduled visit: None Powered by [employer], Reference: [id number], 12/14/2017 10:48:44 AM CDT, Pool: ARIANNE JARAMILLOILL ([id number]) Interface, Out [employer] Prov Query - 12/14/2017 10:48 AM CDT No Careplan note found by [employer]. documented in this encounter Plan of Treatment Not on filedocumented as of this encounter Visit Diagnoses Not on filedocumented in this encounter Care Teams Smt Technician Relationship Specialty Start Date End Date Shiraz Simeon, PAMisbahC PCP - General 03/02/16 [place] [address] documented as of this encounter
--- OUTSIDE RECORDS SUMMARY | 2022-06-08 11:08 | XMS_ITS | Encounter Summary ---
:1945 Author Organization [facility] Address [address] [place] [address] Care Team Providers Name Role Phone Shiraz Simeon PA-C Primary Care Provider Encounter Details Date Type Department Care Team Description 07/13/2017 ur[facility] C[facility] [phone] Social History Tobacco Use Types Packs/Day Years [...] symptoms with me. Feel better soon! Ankita COMMERCIAL TRUCK DRIVER Treatment Plan Since you have a bacterial [...] days Note: Refills: None Sent To: [facility] [address] [place], [place] [id number] Treatment Plan Self Care Tip Topics Inflammation [...] (benzonatate) fluticasone (fluticasone) Advil (ibuprofen) Allergies None [place] Information [facility] by [employer] We are an online clinic open 22/01. If you have any questions or comments about this visit, please call or email [email or web address]. GER RENEWABLE ENERGY FAMILY MEDICINE, URBANO PROVIDER - 07/13/2017 12:00 [...] 22/01. Take care and be well, Radha NavarroSTEPH Treatment Plan Let???s get you feeling better in the next 24 hours by using an effective blend of hkgh-vgw-gopjjyn products to kick this viral infection. And for your cough, let???s try a prescription strength cough suppressant. Though a great cough remedy for adults, this prescription is not safe for children and should be kept out of reach. I???ve sent your prescription to [facility] . We???ll work to reduce your [...] for free. Order(s) fluticasone 50 mcg/actuation spray,suspension [place] 2 spray into both nostrils once a day as directed for 30 days Note: Refills: 2 benzonatate 100 mg capsule Take 2 capsule by mouth at bedtime as needed for 10 days Note: Swallow capsules whole. Refills: None Sent To: [facility] [place] [address] Treatment Plan Self Care Tip Topics Inflammation [...] (ibuprofen) Allergies None [facility] Information [facility] by [employer] We are an online clinic open 22/01. If you have any questions or comments about this visit, please call or email [email or web address] GER RENEWABLE ENERGY documented in this encounter Plan of Treatment Not on filedocumented as of this encounter Visit Diagnoses Not on filedocumented in this encounter Care Teams Reimbursement Representative Relationship Specialty Start Date End Date Shiraz Simeon PA-C PCP - General 03/02/16 [address] [place] [address] documented as of this encounter
--- OUTSIDE RECORDS SUMMARY | 2022-06-08 11:08 | XMS_ITS | Encounter Summary ---
:1945 Author Organization [employer] Address [address] [place] [address] Care Team Providers Name Role Phone Shiraz Simeon PA-C Primary Care Provider Reason for Visit Reason Comments Refill sertraline (ZOLOFT) 100 MG t ablet [Pharmacy Med Name: SERTRALINE HCL 100MG TABS]; omeprazole (PRILOSEC) 20 MG capsule [Pharmacy Med Name: OMEPRAZOLE 20MG CPDR] Encounter Details Date Type Department Care Team Description 03/31/2019 Refill [facility] Shiraz Simeon PA-C Refill (sertraline [address] (ZOLOFT) [place] [address] [place] [address] [Pharmacy Med Name: [phone] (Wo rk) SERTRALINE HCL 100MG TABS]; om [...] SIMEON) Next scheduled visit: None Powered by [employer], Reference: [id number], 03/31/2019 8:09:23 AM CDT, Pool: ARIANNE REFILL ([id number]) sertraline (ZOLOFT) 100 MG tablet [Pharmacy Med [...] 70 mm Hg on 04/17/2018 Powered by [employer], Reference: [id number], 03/31/2019 8:09:23 AM CDT, Pool: ARIANNE VALDEZ ([id number]) documented in this encounter Plan of Treatment Not on filedocumented as of this encounter Visit Diagnoses Diagnosis Generalized anxiety disorder (HRC) Generalized anxiety disorder Restless legs syndrome (RLS) History of gastric ulcer Personal history of other diseases of di gestive system documented in this encounter Care Teams Lead Sprinkler Relationship Specialty Start Date End Date Shiraz Simeon PA-C PCP - General 03/02/16 [address] [place] [address] documented as of this encounter
--- OUTSIDE RECORDS SUMMARY | 2022-06-08 11:08 | XMS_ITS | Encounter Summary ---
:1945 Author Organization [facility] Address [address] [place] [address] Care Team Providers Name Role Phone Shiraz Simeon PA-C Primary Care Provider Reason for Visit Reason Comments Refill sertraline (ZOLOFT) 100 MG t ablet [Pharmacy Med Name: SERTRALINE HCL 100MG TABS]; omeprazole (PRILOSEC) 20 MG capsule [Pharmacy Med Name: OMEPRAZOLE 20MG CPDR] Encounter Details Date Type Department Care Team Description 12/14/2017 Refill [facility] Shiraz Simeon PA-C Refill (sertraline [address] (ZOLOFT) [address] [place] [address] [place] [address] [Pharmacy Med Name: [phone] (Wo rk) SERTRALINE HCL 100MG TABS]; om [...] SIMEON) Next scheduled visit: None Powered by [email or web address], Reference: [id number], 12/14/2017 10:48:45 AM JODEETClif: EAGEN REFILL ([id number]) sertraline (ZOLOFT) 100 MG tablet [Pharmacy Med [...] 72 mm Hg on 07/25/2016 Powered by [email or web address], Reference: [id number], 12/14/2017 10:48:45 AM JODEET, Clif: EAGEN REFILL ([id number]) documented in this encounter Plan of Treatment Not on filedocumented as of this encounter Visit Diagnoses Not on filedocumented in this encounter Care Teams Mutuel Teller Relationship Specialty Start Date End Date Shiraz Simeon PA-C PCP - General 03/02/16 [address] [place] [address] documented as of this encounter
--- OUTSIDE RECORDS SUMMARY | 2022-06-08 11:08 | XMS_ITS | Encounter Summary ---
:1945 Author Organization [employer] Address [address] [place] [address] Care Team Providers Name Role Phone Shiraz Simeon PA-C Primary Care Provider Reason for Visit Reason Comments Refill gabapentin (NEURONTIN) 400 M G capsule [Pharmacy Med Name: GABAPENTIN 400MG CAPS] Encounter Details Date Type Department Care Team Description 03/31/2019 Refill [facility] Shiraz Simeon PA-C Refill (gabapentin [address] (NEURONTIN) 400 [place] [address] [place] [address] capsule [Pharmacy Med [phone] (Wo rk) Name: GABAPENTIN 400MG CAPS]) Social [...] EVENING FOR RESTLESS LEG SYNDROME Interface, Out Gigabit Squared Prov Query - 03/31/2019 8:09 AM CDT [...] SIMEON) Next scheduled visit: None Powered by [employer], Reference: [id number], 03/31/2019 8:09:23 AM CDT, Pool: ARIANNE REFILL ([id number]) documented in this encounter Plan of Treatment Not on filedocumented as of this encounter Visit Diagnoses Diagnosis Restless legs syndrome (RLS) documented in this encounter Care Teams Baggage And Mail Agent Relationship Specialty Start Date End Date Shiraz Simeon PA-C PCP - General 03/02/[address] [place] [address] documented as of this encounter
--- OUTSIDE RECORDS SUMMARY | 2022-06-08 11:08 | XMS_ITS | Encounter Summary ---
:1945 Author Organization [employer] Address [address] [place] [address] Care Team Providers Name Role Phone Shiraz Simeon PA-C Primary Care Provider Reason for Visit Reason Comments Refill gabapentin (NEURONTIN) 400 M G capsule [Pharmacy Med Name: GABAPENTIN 400MG CAPS] Encounter Details Date Type Department Care Team Description 12/14/2017 Refill [facility] Shiraz Simeon PA-C Refill (gabapentin [address] (NEURONTIN) 400 [place] [address] [place] [address] capsule [Pharmacy Med [phone] (Wo rk) Name: GABAPENTIN 400MG CAPS]) Social [...] SIMEON) Next scheduled visit: None Powered by [employer], Reference: [id number], 12/14/2017 10:48:45 AM CDT, Pool: ARIANNE REFILL ([id number]) documented in this encounter Plan of Treatment Not on filedocumented as of this encounter Visit Diagnoses Not on filedocumented in this encounter Care Teams Travel Money Advisor Relationship Specialty Start Date End Date Shiraz Simeon PA-C PCP - General 03/02/16 [address] [place] [address] documented as of this encounter
--- OUTSIDE RECORDS SUMMARY | 2022-06-08 11:08 | XMS_ITS | Encounter Summary ---
:1945 Author Organization [employer] Address [address] [place] [address] Care Team Providers Name Role Phone Shiraz Simeon PA-C Primary Care Provider Reason for Visit Reason Comments Refill traMADol (ULTRAM) 50 MG tabl et [Pharmacy Med Name: TRAMADOL HCL 50MG TABS] Encounter Details Date Type Department Care Team Description 10/01/2018 Refill [facility] Shiraz Simeon PA-C Refill (traMADol [address] (ULTRAM) 50 MG tablet [place] [address] [place] [address] [Pharmacy Med Name: [phone] (Wo rk) TRAMADOL HCL 50MG TABS]) Social [...] SIMEON) Next scheduled visit: None Powered by [employer], Reference: [id number], 10/01/2018 2:20:53 PM CDT, Pool: ARIANNE JARAMILLOILL ([id number]) Interface, Out FaceAlerta Prov Query - 10/01/2018 2:20 PM CDT No Careplan note found by [employer]. 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
--- OUTSIDE RECORDS SUMMARY | 2022-06-08 11:08 | XMS_ITS | Encounter Summary ---
:1945 Author Organization [employer] Address [address] [place] [address] Care Team Providers Name Role Phone Shiraz Simeon PA-C Primary Care Provider Reason for Visit Reason Comments Refill traMADol (ULTRAM) 50 MG tabl et [Pharmacy Med Name: TRAMADOL HCL 50MG TABS] Encounter Details Date Type Department Care Team Description 07/01/2019 Refill [facility] Shiraz Simeon PA-C Refill (traMADol [address] (ULTRAM) 50 MG tablet [place] [address] [place] [address] [Pharmacy Med Name: [phone] (Wo rk) TRAMADOL HCL 50MG TABS]) Social [...] PA-C - 07/01/2019 11:02 AM CST faxed TAL PRODUCT SPECIALIST Interface, Out Surescripts Prov Query - 07/01/2019 7:54 AM CST No Careplan note found by [employer]. TAL PRODUCT SPECIALIST Interface, Out [employer] Prov Query - 07/01/2019 7:54 AM CST [...] SIMEON) Next scheduled visit: None Powered by [employer], Reference: [id number], 07/01/2019 7:54:51 AM DIGITAL PRODUCT SPECIALIST, Pool: ARIANNE REFILL ([id number]) TAL PRODUCT SPECIALIST documented in this encounter Plan of Treatment Not on filedocumented as of this encounter Visit Diagnoses Diagnosis Chronic right-sided low back pain with r ight-sided sciatica documented in this encounter Care Teams Medical Transcription Editor Relationship Specialty Start Date End Date Shiraz Simeon, KENISHA PCP - General 03/02/16 [address] [place] [address] documented as of this encounter
--- OUTSIDE RECORDS SUMMARY | 2022-06-08 11:08 | XMS_ITS | Encounter Summary ---
:1945 Author Organization [employer] Address [address] [place] [address] Care Team Providers Name Role Phone Shiraz Simeon PA-C Primary Care Provider Encounter Details Date Type Department Care Team Description 11/16/2017 urbano Cohn [phone] Social History Tobacco Use Types Packs/Day Years [...] of : 47 Provider Miya Pringle, Physician Helicopter Crew Chief Note From Provider Monty Bahena! Thanks for [...] nasal steroid and an effective blend of opuw-hul-jmzoplq products to kick this viral infection. We?ll work to reduce your pain and inflammation, help drain that irritating mucus and prevent this from worsening. Because this infection is caused by a virus, an antibiotic won?t be effective at helping your pain or treating the virus. I sent your prescription to [facility] [address]. If your symptoms don?t improve after 24 hours, or if you have questions, Request a Call Back and we?ll adjust your treatment for free. Order(s) fluticasone 50 mcg/actuation spray,suspension [place] 2 spray into both nostrils once a day as directed for 30 days Note: Refills: 2 Sent To: [facility] [address] [place] [address] [id number] Treatment Plan Self Care Tip Topics Inflammation [...] (ibuprofen) Allergies None [facility]well Information [facility]well by [facility] We are an online clinic open 22/01. If you have any questions or comments about this visit, please call or email [email or web address]. documented in this encounter Plan of Treatment Not on filedocumented as of this encounter Visit Diagnoses Not on filedocumented in this encounter Care Teams Tar Heel Relationship Specialty Start Date End Date Shiraz Simeon PA-C PCP - General 03/02/16 [address] [place] [address] documented as of this encounter
--- OUTSIDE RECORDS SUMMARY | 2022-06-08 11:08 | XMS_ITS | Encounter Summary ---
:1945 Author Organization [facility] Address [address] [place] [address] Care Team Providers Name Role Phone Shiraz Simeon PA-C Primary Care Provider Reason for Visit Reason Comments Medicare Encounter Details Date Type Department Care Team Description 04/16/2018 Telephone [facility] Medic[facility] Shiraz Simeon PA-C Medicare [address] [place] [address] [place] [address] [place] [address] [phone] (Wo rk) Social History Tobacco Use Types [...] Patients: -No call was needed. Mailers: -No ethics instructor needed. documented in this encounter Plan of Treatment Not on filedocumented as of this encounter Visit Diagnoses Not on filedocumented in this encounter Care Teams Truck Crane Operator Helper Relationship Specialty Start Date End Date Shiraz Simeon PA-C PCP - General 03/02/16 [address] [place], [place] [address] documented as of this encounter
--- OUTSIDE RECORDS SUMMARY | 2022-06-08 11:08 | XMS_ITS | Encounter Summary ---
:1945 Author Organization [employer] Address [address] [place] [address] Care Team Providers Name Role Phone Shiraz Simeon PA-C Primary Care Provider Reason for Referral Consult/Transfer Care (Routine) - Closed Specialty Diagnoses / Procedures Referred By Contact Refer red To Contact Diagnoses Chronic right-sided low back pain with right-sided sciatica (HRC) Shiraz Simeon PA-C [address] [place] [address] Referral ID Status Reason Start Date Expiration Date Visits Requ ested Visits Authorized [id number] Closed 04/17/2018 07/17/2019 1 1 Scheduling Instructions Your provider has recommended an appoint ment with [facility]. You may call [phone] to sche dule your appointment. If you do not schedule an appointment within the next 1 to 3 , we will call you to help arrange your appointment. We suggest you call [employer] about your coverage and benefits for this appointme nt. Consult/Transfer Care (Routine) - Closed Specialty Diagnoses / Procedures Referred By Contact Refer red To Contact Diagnoses Hearing loss, unspecified hearing loss type, unspecified laterality Shiraz Simeon PA-C [address] [place] [address] Referral ID Status Reason Start Date Expiration Date Visits Requ ested Visits Authorized [id number] Closed 04/17/2018 07/17/2019 1 1 Scheduling Instructions Your provider has recommended an appoint ment with [facility]. You may call [phone] to schedule your appoi ntment. If you do not schedule an appointment within the next 1 to 3 business days, we will call you to help arrange your appointment. We suggest you call your [email or web address] insurance company about your coverage and benefits for this appointment. Reason for Visit Reason Comments Medicare Annual Wellness MEDICATION CHECK Encounter Details Date Type Department Care Team Description 04/17/2018 Office Visit Shiraz Cabezas, Medicare annual wellness vis it, subsequent (Primary Dx); [address] PA-C History of gastric ulcer; [place] [address] [address] Chronic right-sided low back pain with r ight-sided sciatica; [phone] [place] [address] Iron deficiency anemia, unspecified iron deficiency anemia type; [phone] Restless legs s yndrome (RLS); (Work) Generalized anxiety disorder; [phone] Screening for b reast cancer; (Fax) Hearing [...] Influenza IIV3 (Trivalent) Fluzone Highdose, 65+ Yrs (13443) Counseling completed for all immunization components that [...] Miley with Reflex (04/17/2018 8:41 AM CDT) [facility] Time Signature Hepatitis C Nonreactive Nonreactive PN SOFT Antibody Specimen Anatomical Collection Method Collection Time Receive d Time (Source) Location / / Volume Laterality 04/17/2018 8:41 AM 8 CDT 12:10 PM CDT Narrative PN SOFT - 04/17/2018 1:39 [place] [address] CLIA number [id number] Shiraz Simeon PA-C LAB_1 Performing Organization Address City/State/ZIP Code Phon e Number PN SOFT [address] [place] [address] [phone] Lipid Panel - LDLD If Trig High (04/17/2018 8:41 AM CDT) Analysis Performed At [facility] logist Time Signature Cholesterol 185 0 - [...] - 04/17/2018 11:29 AM CDT Performed at [facility], [address] [place] [address] CLIA number [id number] Shiraz Simeon PA-C LAB_1 Performing Organization Address [facility]/ZIP Code Phon e Number PN SOFT [address] [place] [address] (ABNORMAL) Hemoglobin (04/17/2018 8:41 AM CDT) athologist Signature Hemoglobin 9.5 (L) 11.8 - 15.5 PN SOFT g/dL Specimen Anatomical Collection Method Collection Time Receive d Time (Source) Location / / Volume Laterality 04/17/2018 8:41 AM 8 8:41 CDT AM CDT Narrative PN SOFT - 04/17/2018 9:08 AM CDT Performed at [facility], [address] [place] [address] CLIA number [id number] Shiraz Simeon PA-C LAB_1 Performing Organization Address [facility] Phon e Number PN SOFT [address] [place] [address] (ABNORMAL) Ferritin (04/17/2018 8:41 AM CDT) athologist Signature Ferritin Serum 5 (L) 9 - 204 PN SOFT ng/mL Specimen Anatomical Collection Method Collection Time Receive d Time (Source) Location / / Volume Laterality 04/17/2018 8:41 AM 8 CDT 12:05 PM CDT Narrative PN SOFT - 04/17/2018 1:10 PM CDT Performed at [facility], [address] [place] [address] CLIA number [id number] Shiraz Simeon PA-C LAB_1 Performing Organization Address [facility] Phon e Number PN SOFT [address] [place] [address] documented in this encounter Visit Diagnoses Diagnosis [...] diseases documented in this encounter Care Teams Sewer And Drain Technician Relationship Specialty Start Date End Date Shiraz Simeon PA-C PCP - General 03/02/[address] [id number] documented as of this encounter
--- OUTSIDE RECORDS SUMMARY | 2022-06-08 11:08 | XMS_ITS | Encounter Summary ---
:1945 Author Organization [employer] Address [address] [place] [address] Care Team Providers Name Role Phone Shiraz Simeon PA-C Primary Care Provider Reason for Visit Reason Comments Refill gabapentin (NEURONTIN) 400 M G capsule [Pharmacy Med Name: GABAPENTIN 400MG CAPSULES] Encounter Details Date Type Department Care Team Description 07/31/2019 Refill [facility] Shiraz Simeon PA-C Refill (gabapentin [address] (NEURONTIN) 400 [place] [address] [place] [address] capsule [Pharmacy Med [phone] (Wo rk) Name: GABAPENTIN 400MG CAPSULES] ) [...] Provider: SHIRAZ SIMEON Ordering User: ARA BURNS TIVE PHYSICAL EDUCATION SPECIALIST Interface, Out Ranovus Prov Query - 07/31/2019 10:23 AM CST [...] SIMEON) Next scheduled visit: None Powered by [employer], Reference: [id number], 07/31/2019 10:23:50 AM ADAPTIVE PHYSICAL EDUCATION SPECIALIST, Pool: ARIANNE REFILL ([id number]) TIVE PHYSICAL EDUCATION SPECIALIST documented in this encounter Plan of Treatment Not on filedocumented as of this encounter Visit Diagnoses Diagnosis Restless legs syndrome (RLS) documented in this encounter Care Teams Dairy Equipment Repairer Relationship Specialty Start Date End Date Shiraz Simeon, KENISHA PCP - General 03/02/16 [address] [place] [address] documented as of this encounter
--- OUTSIDE RECORDS SUMMARY | 2022-06-08 11:08 | XMS_ITS | Encounter Summary ---
:1945 Author Organization [employer] Address [address] [place] [address] Care Team Providers Name Role Phone Shiraz Simeon PA-C Primary Care Provider Reason for Visit Reason Comments Refill traMADol (ULTRAM) 50 MG tabl et [Pharmacy Med Name: TRAMADOL 50MG TABLETS] Encounter Details Date Type Department Care Team Description 07/22/2019 Refill [facility] Shiraz Simeon PA-C Refill (traMADol [address] (ULTRAM) 50 MG tablet [place] [address] [place] [address] [Pharmacy Med Name: [phone] (Wo rk) TRAMADOL 50MG TABLETS]) Social History [...] notified. She did not request- pharmacy must've. [employer]OVE Shiraz Simeon PA-C - 07/22/2019 3:58 PM CST Too early for refill, not due to fill until earliest date of 07/30/2019 [employer] Interface, Out Ippies Prov Query - 07/22/2019 8:21 AM CST traMADol (ULTRAM) 50 MG tablet [Pharmacy Med Name: TRAMADOL 50MG TABLETS] Medication started: 12/24/2013 Last ordered by SHIRAZ SIMEON: 07/01/2019 (21 days ago) QTY: 90, Refills: 0, Sig: take one tablet bymouth three times a day as needed for pain (unchanged) -> Medication cannot be delegated. Last qualifying visit: 06/05/2019 (with SHIRAZ SIMOEN) Next scheduled visit: None Powered by [employer], Reference: [id number], 07/22/2019 8:21:33 AM SUPERVISOR GROVE, Pool: ARIANNE REFILL ([id number]) [employer] Interface, Out Ippies Prov Query - 07/22/2019 8:21 AM CST No Careplan note found by [employer]. [facility] documented in this encounter Plan of Treatment Not on filedocumented as of this encounter Visit Diagnoses Diagnosis Chronic right-sided low back pain with r ight-sided sciatica documented in this encounter Care Teams Clinical Field Specialist Relationship Specialty Start Date End Date Shiraz Simeon PA-C PCP - General 03/02/16 [address] [place] [address] documented as of this encounter
--- OUTSIDE RECORDS SUMMARY | 2022-06-08 11:08 | XMS_ITS | Encounter Summary ---
:1945 Author Organization [employer] Address [address] [place] [address] Care Team Providers Name Role Phone Shiraz Simeon PA-C Primary Care Provider Reason for Visit Reason Comments Preop Exam Encounter Details Date Type Department Care Team Description 06/05/2019 Pre-Op Visit Shiraz Cabezas, Preoperative examination (Pr imary Dx); [address] PA-C Age-related cataract of both eyes, unspe cified age-related cataract type [place] [address] [address] [phone] [place] [id number] Social History Tobacco Use Types Packs/Day Years Used Date Smoking Tobacco: Every Day Cigarettes 0.3 Smokeless Tobacco: Never Alcohol Use Standard Drinks/Week Comments No 0 (1 standard drink = 0.6 oz pure alcoho l) Sex Assigned at Date Recorded Not on file documented as of this encounter Last Filed Vital Signs Vital Sign Reading Time Taken Comments Blood Pressure 104/68 06/05/2019 1:10 PM TREE WRAPPER Pulse 74 06/05/2019 1:10 PM TREE WRAPPER Temperature - - Respiratory Rate - - Oxygen Saturation - - Inhaled Oxygen Concentration - - Weight 47.2 kg (104 lb) 06/05/2019 1:10 PM TREE WRAPPER Height - - Body Mass Index 19.33 04/17/2018 7:48 AM CDT documented in this encounter Nursing Notes Hortencia Llamas LPN - 06/05/2019 1:20 PM CST Declines MAWL today WRAPPER documented in this encounter OR Notes H&P - Shiraz Simeon PA-C - 06/05/2019 1:20 PM CST PREOPERATIVE ASSESSMENT Date of Service: 06/05/2019 Date of : 1945 Age: 73 y.o. Sex: female Preoperative Evaluation completed by: Shiraz Simeon PA-C Primary care physician: Shiraz Simeon PA-C [phone] CHIEF COMPLAINT Pre-Operative Evaluation ANTICIPATED PROCEDURE Chief [...] WITH PATIENT: yes Shiraz Simeon PA-C 06/05/2019 WRAPPER documented in this encounter Plan of Treatment Not on filedocumented as of this encounter Procedures Procedure Name Priority Date/Time Associated Diagnosis Comme nts ECG 12 LEAD Routine 06/05/2019 1:39 PM Preoperative Results f or this OUTPATIENT TREE WRAPPER examination procedure are i n the results section. documented in this encounter Results ECG 12 Lead Outpatient (MUSE) (06/05/2019 1:39 PM TREE WRAPPER) P athologist Signature Ventricular Rate 70 BPM MUSE GHP Atrial Rate 70 BPM MUSE GHP P-R Interval 154 ms MUSE GHP QRS Duration 86 ms MUSE GHP QT 410 ms MUSE GHP QTc 442 ms MUSE G[facility] P [place] 69 degrees MUSE GHP R [place] 18 degrees MUSE GHP T [place] 50 degrees MUSE GHP Specimen (Source) Anatomical Collection Method Collection Time Re ceived Time Location / / Volume Laterality 06/05/2019 1:39 PM TREE WRAPPER Narrative MUSE [facility] - 06/05/2019 2:27 PM TREE WRAPPER Sinus rhythm Minimal voltage criteria for LVH, [...] e Number MUSE [facility] [address] [place] [address] documented in this encounter Visit Diagnoses Diagnosis Preoperative examination - Primary Preoperative examination, unspecified Age-related cataract of both eyes, unspe cified age-related cataract type documented in this encounter Care Teams Family Resource Coordinator Relationship Specialty Start Date End Date Shiraz Simeon PA-C PCP - General 03/02/16 [address] [place] [address] documented as of this encounter
--- OUTSIDE RECORDS SUMMARY | 2022-06-08 11:09 | XMS_ITS | Encounter Summary ---
:1945 Author Organization [employer] Address [address] [place] [address] Care Team Providers Name Role Phone Shiraz Simeon PA-C Primary Care Provider Reason for Visit Reason Comments MEDICATION CHECK Encounter Details Date Type Department Care Team Description 01/27/2015 Office Visit Mrava Mccarty e Shiraz Simeon, Generalized anxiety disorder (Primary Dx); [address] PA-C Chronic back pain; [place] [address] [address] History of gastric ulcer; [phone] [place] [address] History of iron deficiency anemia; [phone] Encounter for s creening for osteoporosis; (Work) Need for pneumococcal vaccine; [phone] Need for shingl es vaccine (Fax) Social [...] 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 Cannot [...] varicella documented in this encounter Care Teams Odd Ticket Clerk Relationship Specialty Start Date End Date Shiraz Simeon PA-C PCP - General 11/02/11 03/01/16 [address] [place], [place] [address] documented as of this encounter
--- OUTSIDE RECORDS SUMMARY | 2022-06-08 11:09 | XMS_ITS | Encounter Summary ---
:1945 Author Organization [employer] Address [address] [place] [address] Care Team Providers Name Role Phone Shiraz Simeon PA-C Primary Care Provider Reason for Visit Reason Comments Refill Encounter Details Date Type Department Care Team Description 09/10/2014 Refill Shiraz Cabezas PA-C [address]ill [address] [facility] [place] [address] [place] [address] [phone] (Wo rk) Social History Tobacco Use Types Packs/Day Years Used Date Smoking Tobacco: Never Assessed Sex Assigned at Date Recorded Not on file documented as of this encounter Nursing Notes Rosalva Fair RN - 09/10/2014 3:15 PM CDT From: Ronda Coribn To: Shiraz Simeon PA-C Sent: 09/10/2014 2:47 PM CDT Subject: Medication Renewal Request Original authorizing provider: Shiraz Simeon PA-C Ronda Corbin would like a refill of the following medications: sertraline (ZOLOFT) 100 mg tablet [Shiraz Simeon PA-C] Preferred pharmacy: [place] [facility] [address] [facility] Comment: Need to give you another credit card, Use [employer]- [id number] M Hillaexpires on backplease confirm documented in this encounter Miscellaneous Notes Refill (Converted) - Mychart, Generic Provider - 09/10/2014 3:23 PM CDT RE: Medication Renewal Request From User: ROSALVA FAIR, I checked with [facility]. They said they had already received a request to refill your Zoloft, and it had already been charged to your old credit card number and was mailed. In the future, please call the pharmacy about refill requests. They are not linked to MyCharts. If there are any additional questions, please call the pharmacy at [phone]. Thank you. EDWARD Camejo ----- Message ----- From: RONDA CORBIN Sent: 09/10/2014 2:47 PM CDT To: Shiraz Simeon PA-C Subject: Medication Renewal Request Original authorizing provider: KENISHA Cisneros would like a refill of the following medications: sertraline (ZOLOFT) 100 mg tablet [Shiraz Simeon PA-C] Preferred pharmacy: [facility] [place] [facility] [address] Comment: Need to give you another credit card, Use [employer] [facility]- [phone] Ronda Corbin expires on back please confirm [employer] PROGRAM MANAGER documented in this encounter Plan of Treatment Not on filedocumented as of this encounter Visit Diagnoses Diagnosis Generalized anxiety disorder (HRC) Generalized anxiety disorder documented in this encounter Care Teams Vp Marketing Services And Skin Relationship Specialty Start Date End Date Shiraz Simeon PA-C PCP - General 11/02/11 03/01/[address] [place] [address] documented as of this encounter
--- OUTSIDE RECORDS SUMMARY | 2022-06-08 11:09 | XMS_ITS | Encounter Summary ---
:1945 Author Organization [employer] Address [address] [place] [address] Care Team Providers Name Role Phone Shiraz Simeon PA-C Primary Care Provider Reason for Visit Reason Comments Eye Exam Encounter Details Date Type Department Care Team Description 05/15/2013 Office Visit Cristian Schmitt, Incipient cataract (Primary Dx); Ophthalmology OD Ptosis of eyelid, right; [address] [address] [address] Myopia [place] [address] [place] [phone] (Wo rk) Social History Tobacco Use Types [...] annually recommended, or sooner should conditions change. ACTER ACTRESS documented in this encounter Progress Notes Cristian [...] to patient: changerecommended. Watch for future changes ACTER ACTRESS documented in this encounter Plan of Treatment Not on filedocumented as of this encounter Visit Diagnoses Diagnosis Incipient cataract - Primary Unspecified cataract Ptosis of eyelid, right Unspecified ptosis of eyelid Myopia with astigmatism and presbyopia Myopia documented in this encounter Care Teams Curing Supervisor Relationship Specialty Start Date End Date Shiraz Simeon PA-C PCP - General 11/02/11 03/01/16 [address] [place] [address] documented as of this encounter
--- OUTSIDE RECORDS SUMMARY | 2022-06-08 11:09 | XMS_ITS | Encounter Summary ---
:1945 Author Organization [facility] Address [address] [place] [address] Care Team Providers Name Role Phone Shiraz Simeon PA-C Primary Care Provider Reason for Visit Reason Comments Infusion Encounter Details Date Type Department Care Team Description 01/01/2013 [facility]Primary [facility] Oncology Treatment R [address] [place], [place] [address] Social History Tobacco Use Types Packs/Day Years [...] - - 01/01/13 1520 200 mg Started aMuricio Mendes RN Intravenous - 01/01/13 1521 - [...] unspecified documented in this encounter Care Teams Partner Marketing Manager Relationship Specialty Start Date End Date Shiraz Simeon PA-C PCP - General 11/02/11 03/01/16 [address] [place] [address] documented as of this encounter
--- OUTSIDE RECORDS SUMMARY | 2022-06-08 11:09 | XMS_ITS | Encounter Summary ---
:1945 Author Organization [facility] Address [address] [place] [address] Care Team Providers Name Role Phone Shiraz Simeon PA-C Primary Care Provider Reason for Visit Reason Comments IV,THERAPY Encounter Details Date Type Department Care Team Description 12/30/2012 [facility] Lydia Owens M D Iron deficiency Encounter [facility] [address] [place] anemia ( Primary Center [address] Dx) Treatment Ro[place], [place] [address] [facility] [address] [address] [place], [place] [phone] (Work) [phone] Social History Tobacco Use Types Packs/Day Years [...] unspecified documented in this encounter Care Teams Bleacher Lard Relationship Specialty Start Date End Date Shiraz Simeon PA-C PCP - General 11/02/11 03/01/16 [address] [place] [address] documented as of this encounter
--- OUTSIDE RECORDS SUMMARY | 2022-06-08 11:09 | XMS_ITS | Encounter Summary ---
:1945 Author Organization [employer] Address [address] [place] [address] Care Team Providers Name Role Phone Shiraz Simeon PA-C Primary Care Provider Reason for Visit Reason Comments Refill Encounter Details Date Type Department Care Team Description 08/25/2014 Refill [facility] Shiraz Sargent PA-C Refill [address] [place] [address] [place] [address] [phone] (Wo rk) Social History Tobacco Use Types [...] 1 capsule by mouth 3 times daily. COUNSELOR Delaney Miller RN - 08/25/2014 8:47 AM AIDS COUNSELOR From: Ronda Corbin To: Shiraz Simeon PA-C Sent: 08/25/2014 7:05 AM AIDS COUNSELOR Subject: Medication Renewal Request Original authorizing provider: KENISHA Cisneros would like a refill of the following medications: gabapentin (NEURONTIN) 300 mg capsule [Shiraz Simeon PA-C] Preferred pharmacy: [facility] [place], [facility] [employer] [facility] Comment: I have had to use this Gabapentin more to stop the restless leg. Mostly right side. Have had to take 900 mg. a day. Need to get refill early. Can you do that?Ronda [phone] documented in this encounter Miscellaneous Notes Refill (Converted) - Berkley Loyd Provider - 08/25/2014 8:58 AM AIDS COUNSELOR RE: Medication Renewal Request From User: SHIRAZ SIMEON, I faxed your gabapentin prescription as requested. Shiraz Estes ----- Message ----- From: RONDA CORBIN Sent: 08/25/2014 8:50 AM AIDS COUNSELOR To: Shiraz Simeon PA-C Subject: RE: Medication Renewal Request Yes, using 900 every day. It helps a lot. Ronda ----- Message ----- From: Office of Shiraz Simeon PA-C Sent: 08/25/2014 8:48 AM AIDS COUNSELOR To: Ronda Corbin Subject: RE: Medication Renewal Request Ronda, Just to clarify, are you still using 900 mg daily, and does this seem to be working better? [facility] Nurse Line ----- Message ----- From: RONDA CORBIN Sent: 08/25/2014 7:05 AM AIDS COUNSELOR To: Shiraz Simeon PA-C Subject: Medication Renewal Request Original authorizing provider: KENISHA Cisneros would like a refill of the following medications: gabapentin (NEURONTIN) 300 mg capsule [Shiraz Simeon PA-C] Preferred pharmacy: [facility] [place], [facility] Comment: I have had to use this Gabapentin more to stop the restless leg. Mostly right side. Have had to take 900 mg. a day. Need to get refill early. Can you do that? Ronda Corbin [phone] COUNSELOR documented in this encounter Plan of Treatment Not on filedocumented as of this encounter Visit Diagnoses Diagnosis Chronic back pain Backache, unspecified documented in this encounter Care Teams Scientific Publications Editor Relationship Specialty Start Date End Date Shiraz Simeon PA-C PCP - General 11/02/11 03/01/16 [address] [place] [address] documented as of this encounter
--- OUTSIDE RECORDS SUMMARY | 2022-06-08 11:09 | XMS_ITS | Encounter Summary ---
:1945 Author Organization [employer] Address [address] [place] [address] Care Team Providers Name Role Phone Shiraz Simeon PA-C Primary Care Provider Reason for Visit Reason Comments Refill gabapentin (NEURONTIN) 300 M G capsule [Pharmacy Med Name: GABAPENTIN 300MG CAPS] Encounter Details Date Type Department Care Team Description 06/13/2016 Refill [facility] Shiraz Simeon PA-C Refill (gabapentin [address] (NEURONTIN) 300 [place] [address] [place] [address] capsule [Pharmacy Med [phone] (Wo rk) Name: GABAPENTIN 300MG CAPS]) Social [...] CST Left message to schedule an appt PROGRAMMER Shiraz Simeon PA-C - 06/15/2016 2:36 PM CST Rx faxed for 1 month supply. Please help her schedule within 30 days. PROGRAMMER Zack Patel - 06/15/2016 2:23 PM CST Pt. would like to know if she can have a months worth. Her is having some issues right now and he has doctors appts and some testing to be done, making it very hard for her to get in, in the next 2 weeks PROGRAMMER Shiraz Simeon PA-C - 06/15/2016 2:09 PM CST Rx faxed for short supply. Please help her schedule medication check within 2 weeks. PROGRAMMER Unique Martinez RN - 06/15/2016 1:23 PM [...] BY MOUTH DAILY FOR RESTLESS LEG SYNDROME PROGRAMMER Rhonda, Anais Surescripts Prov Query - 06/13/2016 [...] SIMEON) Next scheduled visit: None Powered by SugarCRM, Reference: [id number], 06/13/2016 4:44:02 PM JAVA PROGRAMMER, Pool: ARIANNE JARAMILLOILL ([id number]) PROGRAMMER documented in this encounter Plan of Treatment Not on filedocumented as of this encounter Visit Diagnoses Not on filedocumented in this encounter Care Teams Home Health Travel Ot Relationship Specialty Start Date End Date Shiraz Simeon PA-C PCP - General 03/02/16 [address] [place], [place] [address] documented as of this encounter
--- OUTSIDE RECORDS SUMMARY | 2022-06-08 11:09 | XMS_ITS | Encounter Summary ---
:1945 Author Organization [employer] Address [address] [address] Care Team Providers Name Role Phone Shiraz Simeon PA-C Primary Care Provider Reason for Visit Reason Comments Back Pain Encounter Details Date Type Department Care Team Description 01/20/2014 Office Visit Pravin Hurt b ack pain (Primary Dx); Chiropractic [facility] Bautista Pain in the hip; [address] [address] [place] [address] [place] [phone] (Wo rk) Social History Tobacco Use Types [...] of thoracic region 739.2 PLAN: 1. CPT 60210 Chiropractic manipulative therapy: T12, L1, manually controlled [...] classified documented in this encounter Care Teams Machine Cloth Trimmer Relationship Specialty Start Date End Date Shiraz Simeon PA-C PCP - General 11/02/11 03/01/16 [address] [place] [address] documented as of this encounter
--- OUTSIDE RECORDS SUMMARY | 2022-06-08 11:09 | XMS_ITS | Encounter Summary ---
:1945 Author Organization [employer] Address [address] [place] [address] Care Team Providers Name Role Phone Shiraz Simeon PA-C Primary Care Provider Encounter Details Date Type Department Care Team Description 04/08/2015 Immunization [facility] Need for influenza [address] vaccination (Primary Dx) [place] [id number] Social History Tobacco Use Types Packs/Day Years Used Date Smoking Tobacco: Never Assessed Sex Assigned at Date Recorded Not on file documented as of this encounter Plan of Treatment Not on filedocumented as of this encounter Visit Diagnoses Diagnosis Need for influenza vaccination - Primary Need for prophylactic vaccination and in oculation against influenza documented in this encounter Care Teams Home Help Aide Relationship Specialty Start Date End Date Shiraz Simeon PA-C PCP - General 11/02/11 03/01/16 [address] [place] [id number] documented as of this encounter
--- OUTSIDE RECORDS SUMMARY | 2022-06-08 11:09 | XMS_ITS | Encounter Summary ---
:1945 Author Organization [employer] Address [address] [place] [address] Care Team Providers Name Role Phone Shiraz Simeon PA-C Primary Care Provider Reason for Visit Reason Comments Refill sertraline (ZOLOFT) 100 MG t ablet [Pharmacy Med Name: SERTRALINE HCL 100MG TABS] Encounter Details Date Type Department Care Team Description 03/07/2016 Refill [facility] Shiraz Simeon PA-C Refill (sertraline [address] (ZOLOFT) 100 MG tablet [place] [address] [place] [address] [Pharmacy Med Name: [phone] (Wo rk) SERTRALINE HCL 100MG TABS]) Social [...] SIMEON Ordering User: MILLA SIMMONS Interface, Out [email or web address]io Query - 03/07/2016 11:34 AM CDT sertraline [...] DBP: 68mm Hg on 01/27/2015 Powered by Qalendra, Reference: [id number], 03/07/2016 11:34:16 AM CDT, Pool: ARIANNE JARAMILLOILL ([id number]) documented in this encounter Plan of Treatment Not on filedocumented as of this encounter Visit Diagnoses Not on filedocumented in this encounter Care Teams Postdoctoral Scientist Relationship Specialty Start Date End Date Shiraz Simeon PA-C PCP - General 03/02/16 [place], [place] [id number] documented as of this encounter
--- OUTSIDE RECORDS SUMMARY | 2022-06-08 11:09 | XMS_ITS | Encounter Summary ---
:1945 Author Organization Replaced by [facility] Address [address] [place] [address] Care Team Providers Name Role Phone Shiraz Simeon PA-C Primary Care Provider Reason for Visit Reason Comments Refill Encounter Details Date Type Department Care Team Description 08/25/2014 Refill MYCHART DEPARTMENT Mychart, Generic Provider Refill [address] [place] [address] [place] [address] Social History Tobacco Use Types Packs/Day Years Used Date Smoking Tobacco: Never Assessed Sex Assigned at Date Recorded Not on file documented as of this encounter Miscellaneous Notes Refill (Converted) - Mychart, Generic Provider - 08/25/2014 9:00 AM ALLIED HEALTH TEACHER Medication Renewal Request From User: thanks ----- Message ----- From: Shiraz Simeon PA-C Sent: 08/25/2014 8:58 AM ALLIED HEALTH TEACHER To: Ronda Corbin Subject: RE: Medication Renewal Request Domi Bahena faxed your gabapentin prescription as requested. Shiraz Estes ----- Message ----- From: RONDA CORBIN Sent: 08/25/2014 8:50 AM ALLIED HEALTH TEACHER To: Shiraz Simeon PA-C Subject: RE: Medication Renewal Request Yes, using 900 every day. It helps a lot. Ronda ----- Message ----- From: Office of Shiraz Simeon PA-C Sent: 08/25/2014 8:48 AM ALLIED HEALTH TEACHER To: Ronda Corbin Subject: RE: Medication Renewal Request Ronda, Just to clarify, are you still using 900 mg daily, and does this seem to be working better? Latasha Espinoza Nurse Line ----- Message ----- From: RONDA CORBIN Sent: 08/25/2014 7:05 AM ALLIED HEALTH TEACHER To: Shiraz Simeon PA-C Subject: Medication Renewal Request Original authorizing provider: KENISHA Cisneros would like a refill of the following medications: gabapentin (NEURONTIN) 300 mg capsule [Shiraz Simeon PA-C] Preferred pharmacy: [facility] [address] Comment: I have had to use this Gabapentin more to stop the restless leg. Mostly right side. Have had to take 900 mg. a day. Need to get refill early. Can you do that? Ronda Corbin [phone] ED HEALTH TEACHER documented in this encounter Plan of Treatment Not on filedocumented as of this encounter Visit Diagnoses Not on filedocumented in this encounter Care Teams Serging Machine Operator Relationship Specialty Start Date End Date Shiraz Simeon PA-C PCP - General 11/02/11 03/01/[address] [id number] documented as of this encounter
--- OUTSIDE RECORDS SUMMARY | 2022-06-08 11:09 | XMS_ITS | Encounter Summary ---
:1945 Author Organization [employer] Address [address] [place] [address] Care Team Providers Name Role Phone Shiraz Simeon PA-C Primary Care Provider Reason for Visit Reason Comments Refill gabapentin (NEURONTIN) 300 M G capsule [Pharmacy Med Name: GABAPENTIN 300MG CAPS] Encounter Details Date Type Department Care Team Description 03/07/2016 Refill [facility] Shiraz Simeon PA-C Refill (gabapentin [address] (NEURONTIN) 300 [place] [address] [place] [address] capsule [Pharmacy Med [phone] (Wo rk) Name: GABAPENTIN 300MG CAPS]) Social History Tobacco Use Types Packs/Day Years Used Date Smoking Tobacco: Every Day Cigarettes 0.3 30 Smokeless Tobacco: Never Comments: Smoking History Packs/day: Alcohol Use Standard Drinks/Week Comments No 0 (1 standard drink = 0.6 oz pure alcoho l) Sex Assigned at Date Recorded Not on file documented as of this encounter Nursing Notes Eric Warnre RN - 03/09/2016 10:32 AM CDT OFFICE APPOINTMENT NEEDED Please notify patient to schedule an appointment within 30 days. Requested Prescriptions Signed Prescriptions Disp Refills ??? gabapentin (NEURONTIN) 300 MG capsule 360 Cap 0 Sig: TAKE 2-4 CAPSULES BY MOUTH DAILY FOR RLS Authorizing Provider: SHIRAZ SIMEON Ordering User: ERIC WARNER Interface, Out [employer] Prov Query - 03/07/2016 11:34 AM CDT [...] - NEXT SCHEDULED VISIT: None Powered by WideOrbit, Reference: [id number], 03/07/2016 11:34:17 AM CDT, Clif: ARIANNE VALDEZ ([id number]) documented in this encounter Plan of Treatment Not on filedocumented as of this encounter Visit Diagnoses Not on filedocumented in this encounter Care Teams Bakery Helper Relationship Specialty Start Date End Date Shiraz Simeon PA-C PCP - General 03/02/16 [place] [address] documented as of this encounter
--- OUTSIDE RECORDS SUMMARY | 2022-06-08 11:09 | XMS_ITS | Encounter Summary ---
:1945 Author Organization [employer] Address [address] [place] [address] Care Team Providers Name Role Phone Shiraz Simeon PA-C Primary Care Provider Encounter Details Date Type Department Care Team Description 07/25/2016 Lab Visit [facility] Iron deficiency anemia, [address] unspecified iron deficiency [place] [address] anemia type [phone] Social History Tobacco Use Types Packs/Day Years [...] 11:49 AM Iron deficiency Results for this HOCKEY SCOUT anemia, unspecified procedur e are in iron deficiency the results anemia type section. FERRITIN Routine 07/25/2016 11:49 AM Iron deficiency Resul ts for this HOCKEY SCOUT anemia, unspecified procedur e are in iron deficiency the results anemia type section. documented in this encounter Results (ABNORMAL) Hemoglobin (07/25/2016 11:49 AM HOCKEY SCOUT) P athologist Signature Hemoglobin 10.1 (L) 11.8 - 15.5 PN SOFT g/dL Specimen Anatomical Collection Method Collection Time Receive d Time (Source) Location / / Volume Laterality 07/25/2016 11:49 07/25/2016 AM HOCKEY SCOUT 11:49 AM HOCKEY SCOUT Narrative PN SOFT - 07/25/2016 12:11 PM HOCKEY SCOUT Performed at [facility], [address] [place] [address] CLIA number [id number] Shiraz Simeon PA-C LAB_1 Performing Organization Address City/[facility]/ZIP Code Phon e Number PN SOFT [address] [place] [address] Ferritin (07/25/2016 11:49 AM HOCKEY SCOUT) P athologist Signature Ferritin Serum 9 9 - 204 PN SOFT ng/mL Specimen Anatomical Collection Method Collection Time Receive d Time (Source) Location / / Volume Laterality 07/25/2016 11:49 07/25/2016 3:26 AM HOCKEY SCOUT PM HOCKEY SCOUT Narrative PN SOFT - 07/25/2016 4:19 PM HOCKEY SCOUT Performed at [facility], [address] [place] [address] CLIA number [id number] Shiraz Simeon PA-C LAB_1 Performing Organization Address [facility] Phon e Number PN SOFT [address] [place] [address] documented in this encounter Visit Diagnoses Diagnosis Iron deficiency anemia, unspecified iron deficiency anemia type documented in this encounter Care Teams Icer Air Conditioning Relationship Specialty Start Date End Date Shiraz Simeon PA-C PCP - General 03/02/[address] [place] [address] documented as of this encounter
--- OUTSIDE RECORDS SUMMARY | 2022-06-08 11:09 | XMS_ITS | Encounter Summary ---
:1945 Author Organization [employer] Address [address] [place] [address] Care Team Providers Name Role Phone Shiraz Simeon PA-C Primary Care Provider Reason for Visit Reason Comments Annual Exam Encounter Details Date Type Department Care Team Description 12/24/2013 Office Visit [facility] Shiraz Simeon, Annual physical exam (Primar y Dx); [address] PA-C Generalized anxiety disorder; [place] [address] [address] Chronic back pain; [phone] [place] [address] NSAID-induced gastric ulcer; [phone] Iron deficiency anemia; (Work) Pain in the hip; [phone] Tobacco use; (Fax) Breast cancer s creening; [...] and tramadol. is allergic to ferrous sulfate. Second Cutter History: : LMP: No LMP recorded. Patient [...] iseases documented in this encounter Care Teams Support Services Tech Relationship Specialty Start Date End Date Shiraz Simeon PA-C PCP - General 11/02/11 03/01/16 [address] [place] [address] documented as of this encounter
--- OUTSIDE RECORDS SUMMARY | 2022-06-08 11:09 | XMS_ITS | Encounter Summary ---
:1945 Author Organization [employer] Address [address] [place] [address] Care Team Providers Name Role Phone Shiraz Simeon PA-C Primary Care Provider Reason for Visit Reason Comments Refill Encounter Details Date Type Department Care Team Description 12/12/2015 Refill [facility] Shiraz Simeon PA-C Refill [address] [place] [address] [place] [address] [phone] (Wo rk) Social History Tobacco Use Types [...] - NEXT SCHEDULED VISIT: None Powered by Mashery, Reference: [id number], 12/12/2015 11:15:24 AM CDT, Pool: ARIANNE REFILL ([id number]) TRIMMER Aviva Parnell, RN - 12/14/2015 7:54 AM [...] on filedocumented in this encounter Care Teams Washer Off Relationship Specialty Start Date End Date Shiraz Simeon PA-C PCP - General 11/02/11 03/01/16 [place] [address] documented as of this encounter
--- OUTSIDE RECORDS SUMMARY | 2022-06-08 11:09 | XMS_ITS | Encounter Summary ---
:1945 Author Organization [employer] Address [address] [place] [address] Care Team Providers Name Role Phone Shiraz Simeon PA-C Primary Care Provider Reason for Referral Specialty Diagnoses / Procedures Referred By Contact Refer red To Contact Shiraz Simeon PA-C [address] [place] [id number] Referral ID Status Reason Start Date Expiration Date Visits Requ ested Visits Authorized Reason for Visit Reason Comments Back Pain Encounter Details Date Type Department Care Team Description 01/07/2014 Initial Consult Pravin Hurt Somati c dysfunction of thoracic region (Primary Dx); Chiropractic [place], [place] Chronic back pain; [address] [address] [place] Pain in the hip [place] [address] [place] [phone] [address] Social History Tobacco Use Types Packs/Day Years [...] several years Referring provider: Shiraz Simeon PA-C [address] [place] [address] History of Present Illness: insidious onset lumbosacral back pain over many years. Denies associatedtrauma nor preceding incident. Denies surgery to the spine, hips and knees. Remarkable surgical history for hysterectomy. Denies past history of MVA nor chemical/alcohol dependency treatment. . Smoking x20 years a pack daily however decreased to a few cigarettes daily. Denies alcohol. 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 Location: lumbosacral back, right gluteal. Pain Severity [...] side effects, importance of compliance. 2. CPT 98901 Chiropractic manipulative therapy: T12, L1 P-A mobilizations [...] Type Priority Associated Diagnoses Order S chedule Rug Inspector Referral Routine Chronic back p ain Ordered: 01/07/2014, Pain in the hip Expires: 03/2014 documented as of this encounter Visit Diagnoses Diagnosis Somatic dysfunction of thoracic region - Primary Nonallopathic lesion of thoracic region, not elsewhere classified Chronic back pain Backache, unspecified Pain in the hip Pain in joint, pelvic region and thigh documented in this encounter Care Teams Food And Beverage Associate Relationship Specialty Start Date End Date Shiraz Simeon PA-C PCP - General 11/02/11 03/01/16 [address] [place] [address] documented as of this encounter
--- OUTSIDE RECORDS SUMMARY | 2022-06-08 11:09 | XMS_ITS | Encounter Summary ---
:1945 Author Organization [employer] Address [address] [place] [address] Care Team Providers Name Role Phone Shiraz Simeon PA-C Primary Care Provider Reason for Visit Reason Comments Refill Encounter Details Date Type Department Care Team Description 09/27/2015 Refill [facility] Shiraz Simeon PA-C Refill [address] [place] [address] [place] [address] [phone] (Wo rk) Social History Tobacco Use Types Packs/Day Years Used Date Smoking Tobacco: Never Assessed Sex Assigned at Date Recorded Not on file documented as of this encounter Nursing Notes Adriana Jackosn LPN - 09/27/2015 3:33 PM CDT Printed RX taken to [facility]. Done. Anibal Alva MD - 09/27/2015 3:32 PM CDT Printed, next refill through PCP please Radha Saunders - 09/27/2015 3:30 PM CDT PRINT, SIGN AND BRING TO [facility] TRAMADOL HCL 50MG TABS QTY 120 LAST FILLED 01/27/2015 LAST OFFICE VISIT 01/27/2015 documented in this encounter Plan of Treatment Not on filedocumented as of this encounter Visit Diagnoses Diagnosis Chronic back pain - Primary Backache, unspecified documented in this encounter Care Teams Pattern Weaver Relationship Specialty Start Date End Date Shiraz Simeon PA-C PCP - General 11/02/11 03/01/16 [address] [place], [place] [address] documented as of this encounter
--- OUTSIDE RECORDS SUMMARY | 2022-06-08 11:09 | XMS_ITS | Encounter Summary ---
:1945 Author Organization [facility] Address [address] [place] [address] Care Team Providers Name Role Phone Shiraz Simeon PA-C Primary Care Provider Reason for Visit Reason Comments Refill Encounter Details Date Type Department Care Team Description 09/10/2014 Refill MYCHART DEPARTMENT Mychart, Generic Provider Refill [address] [place] [address] [place] [address] Social History Tobacco Use Types Packs/Day Years [...] Renewal Request Tej Bahena, I checked with [facility]. They said they had already received a request to refill your Zoloft, and it had already been charged to your old credit card number and was mailed. In the future, please call the pharmacy about refill requests. They are not linked to MyCharts. If there are any additional questions, please call the pharmacy at [phone]. Thank you. EDWARD Camejo ----- Message ----- From: RONDA CORBIN Sent: 09/10/2014 2:47 PM CDT To: Shiraz Simeon PA-C Subject: Medication Renewal Request Original authorizing provider: KENISHA Cisneros would like a refill of the following medications: sertraline (ZOLOFT) 100 mg tablet [Shiraz Simeon PA-C] Preferred pharmacy: [facility] [address] [employer] Comment: Need to give you another credit card, Use [employer]- [id number] Ronda Corbin expires on back please confirm GER STARS documented in this encounter Plan of Treatment Not on filedocumented as of this encounter Visit Diagnoses Not on filedocumented in this encounter Care Teams Composition Weatherboard Applier Relationship Specialty Start Date End Date Shiraz Simeon PA-C PCP - General 11/02/11 03/01/[address] [place] [address] documented as of this encounter
--- OUTSIDE RECORDS SUMMARY | 2022-06-08 11:09 | XMS_ITS | Encounter Summary ---
:1945 [facility] Address [address] [place] [address] Care Team Providers Name Role Phone Shiraz Simeon PA-C Primary Care Provider Reason for Visit Reason Comments Infusion Encounter Details Date Type Department Care Team Description 01/10/2013 Hospital Encounter [facility] ane mauricio (Primary Dx) Oncology Treatment R ooms [address] [place], [place] [address] Social History Tobacco Use Types Packs/Day Years [...] unspecified documented in this encounter Care Teams Supervisor Cell Operation Relationship Specialty Start Date End Date Shiraz Simeon PA-C PCP - General 11/02/11 03/01/16 [address] [place], [place] [address] documented as of this encounter
--- OUTSIDE RECORDS SUMMARY | 2022-06-08 11:09 | XMS_ITS | Encounter Summary ---
:1945 Author Organization [facility] Address [address] [place] [address] Care Team Providers Name Role Phone Shiraz Simeon PA-C Primary Care Provider Encounter Details Date Type Department Care Team Description 01/27/2015 Lab Visit [facility] History of iron deficiency [address] anemia [place] [address] Social History Tobacco Use Types Packs/Day Years [...] - 01/27/2015 4:30 PM CDT Performed at [facility], [facility] [place] [address] Shiraz Simeon PA-C LAB_1 Performing Organization Address [...] - 01/27/2015 11:47 AM CDT Performed at [facility], [address] [place], [place] [address] [address] Shiraz Simeon PA-C LAB_1 Performing Organization Address City/State/ZIP Code Phon e Number HP CONVERSION documented in this encounter Visit Diagnoses Diagnosis History of iron deficiency anemia Personal history of diseases of blood an d blood-forming organs documented in this encounter Care Teams Sports Physician Relationship Specialty Start Date End Date Shiraz Simeon PA-C PCP - General 11/02/11 03/01/[address] [place] [address] [place] [address] documented as of this encounter
--- OUTSIDE RECORDS SUMMARY | 2022-06-08 11:09 | XMS_ITS | Encounter Summary ---
:1945 Author Organization [employer] Address [address] [place] [address] Care Team Providers Name Role Phone Shiraz Simeon PA-C Primary Care Provider Reason for Visit Reason Comments MEDICATION CHECK Encounter Details Date Type Department Care Team Description 07/25/2016 Office Visit [facility] Shiraz Simeon, History of gastric ulcer (Pr imary Dx); [address] PA-C Restless legs syndrome (RLS); [place] [address] Chronic back pain, unspecified back loca tion, unspecified back pain laterality; [phone] [place] [address] Generalized anxiety disorder; [phone] Iron deficiency anemia, unspecified iron deficiency anemia [...] Comments Blood Pressure 124/72 07/25/2016 11:01 AM PUBLIC RELATIONS ANALYST Pulse - - Temperature - - Respiratory Rate - - Oxygen Saturation - - Inhaled Oxygen Concentration - - Weight 51.3 kg (113 lb) 07/25/2016 11:01 AM PUBLIC RELATIONS ANALYST Height 162.6 cm (5' 4) 07/25/2016 11:01 AM PUBLIC RELATIONS ANALYST Body Mass Index 19.4 07/25/2016 11:01 AM PUBLIC RELATIONS ANALYST documented in this encounter Progress Notes Shiraz [...] contraindications or precautions were noted per completed [facility] form [Immunization Contraindication Checklist, edition 11/2002], which was given to parent/patient. See EpicWeb immunization form for immunization details. Shiraz Simeon PA-C 11:13 AM 07/25/2016 The patient was discharged ambulatory and in stable condition. IC RELATIONS ANALYST documented in this encounter Plan of Treatment Not on filedocumented as of this encounter Results (ABNORMAL) Hemoglobin (07/25/2016 11:49 AM PUBLIC RELATIONS ANALYST) P athologist Signature Hemoglobin 10.1 (L) 11.8 - 15.5 PN SOFT g/dL Specimen Anatomical Collection Method Collection Time Receive d Time (Source) Location / / Volume Laterality 07/25/2016 11:49 07/25/2016 AM PUBLIC RELATIONS ANALYST 11:49 AM PUBLIC RELATIONS ANALYST Narrative PN SOFT - 07/25/2016 12:11 PM PUBLIC RELATIONS ANALYST Performed at [facility], [address] [place], [place] [address] [address] CLIA number [id number] Shiraz Simeon PA-C LAB_1 Performing Organization Address City/[facility]/ZIP [facility] Phon e Number PN SOFT [address] [place] [address] [phone] Ferritin (07/25/2016 11:49 AM PUBLIC RELATIONS ANALYST) athologist Signature Ferritin Serum 9 9 - 204 PN SOFT ng/mL Specimen Anatomical Collection Method Collection Time Receive d Time (Source) Location / / Volume Laterality 07/25/2016 11:49 07/25/2016 3:26 AM PUBLIC RELATIONS ANALYST PM PUBLIC RELATIONS ANALYST Narrative PN SOFT - 07/25/2016 4:19 PM PUBLIC RELATIONS ANALYST Performed at [facility], [address] [place] [address] CLIA number [id number] Shiraz Simeon PA-C LAB_1 Performing Organization Address [facility] Phon e Number PN SOFT [address] [place] [address] [phone] documented in this encounter Visit Diagnoses Diagnosis [...] type documented in this encounter Care Teams Sieve Grader Tender Relationship Specialty Start Date End Date Shiraz Simeon PA-C PCP - General 03/02/16 [facility] [place] [address] documented as of this encounter
--- OUTSIDE RECORDS SUMMARY | 2022-06-08 11:09 | XMS_ITS | Encounter Summary ---
:1945 Author Organization [facility] Address [address] [place] [address] Care Team Providers Name Role Phone Shiraz Simeon PA-C Primary Care Provider Reason for Visit Reason Comments Infusion Encounter Details Date Type Department Care Team Description 01/07/2013 Hospital Encounter [facility] ane mauricio (Primary Dx) Oncology Treatment R ooms [address] [place], [place] [address] Social History Tobacco Use Types Packs/Day Years [...] Simeon PA-C PCP - General 11/02/11 03/01/16 [address] [place] [address] documented as of this encounter
--- OUTSIDE RECORDS SUMMARY | 2022-06-08 11:09 | XMS_ITS | Encounter Summary ---
:1945 Author Organization [employer] Address [address], [place] [address] Care Team Providers Name Role Phone Shiraz Simeon PA-C Primary Care Provider Reason for Visit Reason Comments Mouth Sores Diarrhea Encounter Details Date Type Department Care Team Description 10/14/2016 Hospital Encounter [facility] Denton PA-C Thrush; [facility] [address] [place] Aphthous ulcer [address] [place], [place] [address] [phone] Social History Tobacco Use Types Packs/Day Years [...] sta rting *Limited now for 1 Occur [facility] Locations*: starting 2016 until 7 documented as of this encounter Procedures Procedure Name Priority Date/Time Associated Diagnosis Comme nts BGS NO CHARGE Routine 10/14/2016 2:20 PM Results for this CDT procedure are i n the results section . documented in this encounter Results BGS No Charge (10/14/2016 2:20 PM CDT) athologist Signature Bedside Blood 145 mg/dL PN SOFT Glucose Test Comment: Performed at [facility] [address] [facility], [place]. [address] Specimen Anatomical Collection Method Collection Time Receive d Time (Source) Location / / Volume Laterality 10/14/2016 2:20 PM 7 2:25 CDT PM CDT Kelly Denton PA-C LAB_1 Performing Organization Address City/State/ZIP Code Phon e Number PN SOFT [address] [place] [address] [phone] documented in this encounter Visit Diagnoses Diagnosis [...] Sunday. documented in this encounter Care Teams Wood Scaler Relationship Specialty Start Date End Date Shiraz Simeon PA-C PCP - General 03/02/16 [address] [place] [id number] documented as of this encounter
--- OUTSIDE RECORDS SUMMARY | 2022-06-08 11:09 | XMS_ITS | Encounter Summary ---
:1945 Author Organization [employer] Address [address] [place] [address] Care Team Providers Name Role Phone Shiraz Simeon PA-C Primary Care Provider Encounter Details Date Type Department Care Team Description 12/24/2013 Lab Visit [facility] Screening cholesterol level; [address] Screening for diabetes [place] [address] Iron deficiency anemia [phone] Social History Tobacco Use Types Packs/Day Years [...] - 12/24/2013 9:24 AM CDT Performed at [facility], [address] [place] [address] Shiraz Simeon PA-C LAB_1 Performing Organization Address [facility]/ZIP Code Phon e Number HP CONVERSION GLUCOSE (12/24/2013 9:17 AM CDT) athologist Signature Lab Glucose 93 60 - 100 HP CONVERSION mg/dL Specimen Anatomical Collection Method Collection Time Receive d Time (Source) Location / / Volume Laterality 12/24/2013 9:17 AM 4 CDT 11:04 AM CDT Narrative HP CONVERSION - 12/24/2013 11:48 AM CDT Performed at [facility], [address] [place], [place] [address] Shiraz Simeon PA-C LAB_1 Performing Organization Address City/[facility]/ZIP Code Phon e Number HP CONVERSION Lipid Panel and Direct LDL(If Needed) (12/24/2013 9:17 AM CDT) [facility] Method Time Signature Cholesterol 158 0 - [...] - 12/24/2013 11:48 AM CDT Performed at [facility], [address] [place] [address] Shiraz Simeon PA-C LAB_1 Performing Organization Address City/State/ZIP Code Phon e Number HP CONVERSION documented in this encounter Visit Diagnoses Diagnosis Screening cholesterol level Screening for lipoid disorders Screening for diabetes mellitus Iron deficiency anemia Iron deficiency anemia, unspecified documented in this encounter Care Teams Generating Plant Superintendent Relationship Specialty Start Date End Date Shiraz Simeon PA-C PCP - General 11/02/11 03/01/16 [address] [place] [address] documented as of this encounter
--- OUTSIDE RECORDS SUMMARY | 2022-06-08 11:09 | XMS_ITS | Encounter Summary ---
:1945 Author Organization [employer] Address [address] [address] Care Team Providers Name Role Phone Shiraz Simeon PA-C Primary Care Provider Reason for Visit Reason Comments Follow-up Back Pain HIP PAIN Encounter Details Date Type Department Care Team Description 01/27/2014 Office Visit Pravin Hurt Chronic b ack pain (Primary Dx); Chiropractic [facility] Pain in the hip; [address] [address] [place] Somatic dysfunction of thoracic region [place] [address] [place] [phone] (Wo rk) Social History Tobacco Use Types [...] of thoracic region 739.2 PLAN: 1. CPT 23092 Chiropractic manipulative therapy: T12, L1, manually controlled [...] classified documented in this encounter Care Teams Edge Inker Relationship Specialty Start Date End Date Shiraz Simeon PA-C PCP - General 11/02/11 03/01/16 [address] [place] [address] documented as of this encounter
--- OUTSIDE RECORDS SUMMARY | 2022-06-08 11:09 | XMS_ITS | Encounter Summary ---
:1945 Author Organization [employer] Address [address] [address] Care Team Providers Name Role Phone Shiraz Simeon PA-C Primary Care Provider Reason for Visit Reason Comments Back Pain Encounter Details Date Type Department Care Team Description 01/15/2014 Office Visit Pravin Hurt b ack pain (Primary Dx); Chiropractic [facility]ista Pain in the hip; [address] [address] [place] [address] [place] [phone] (Wo rk) Social History Tobacco Use Types [...] of thoracic region 739.2 PLAN: 1. CPT 73563 Chiropractic manipulative therapy: T12, L1, manually controlled [...] classified documented in this encounter Care Teams Flame Hardening Machine Operator Relationship Specialty Start Date End Date Shiraz Simeon PA-C PCP - General 11/02/11 03/01/16 [address] [place] [address] documented as of this encounter
--- OUTSIDE RECORDS SUMMARY | 2022-06-08 11:09 | XMS_ITS | Encounter Summary ---
:1945 Author Organization [employer] Address [address] [place] [address] Care Team Providers Name Role Phone Shiraz Simeon PA-C Primary Care Provider Reason for Visit Reason Comments Refill Encounter Details Date Type Department Care Team Description 02/16/2014 Refill [facility] Shiraz Simeon PA-C Refill [address] [place] [address] [place] [address] [phone] (Wo rk) Social History Tobacco Use Types [...] unspecified documented in this encounter Care Teams Human Resources Assistant Relationship Specialty Start Date End Date Shiraz Simeon PA-C PCP - General 11/02/11 03/01/16 [address] [place] [address] documented as of this encounter
--- OUTSIDE RECORDS SUMMARY | 2022-06-08 11:09 | XMS_ITS | Encounter Summary ---
:1945 Author Organization [facility] Address [address] [place] [address] Care Team Providers Name Role Phone Shiraz Simeon PA-C Primary Care Provider Reason for Visit Reason Comments Infusion Encounter Details Date Type Department Care Team Description 01/08/2013 Hospital Encounter [facility] ane mauricio (Primary Dx) Oncology Treatment R ooms [address] [place], [place] [address] Social History Tobacco Use Types Packs/Day Years [...] unspecified documented in this encounter Care Teams Automobile Salesman Relationship Specialty Start Date End Date Shiraz Simeon PA-C PCP - General 11/02/11 03/01/[address] [place] [address] documented as of this encounter
--- OUTSIDE RECORDS SUMMARY | 2022-06-08 11:09 | XMS_ITS | Encounter Summary ---
:1945 Author Organization [employer] Address [address] [place] [address] Care Team Providers Name Role Phone Shiraz Simeon PA-C Primary Care Provider Encounter Details Date Type Department Care Team Description 12/26/2013 [facility] Tobacco use; [address] [address] Family history of abdominal [place] [address] Social History Tobacco Use Types Packs/Day Years [...] iseases documented in this encounter Care Teams Supervisor Pressing Department Relationship Specialty Start Date End Date Shiraz Simeon PA-C PCP - General 11/02/11 03/01/16 [address] [place] [address] documented as of this encounter
--- OUTSIDE RECORDS SUMMARY | 2022-06-08 11:10 | XMS_ITS | Encounter Summary ---
:1945 Author Organization [facility] Address [address] [place] [address] Care Team Providers Name Role Phone Shiraz Simeon PA-C Primary Care Provider Encounter Details Date Type Department Care Team Description 12/30/2012 Notes/Orders [facility] Lydia Solitario MD [facility] [address] [address] [phone] (Wo rk) Social History Tobacco Use Types Packs/Day Years Used Date Smoking Tobacco: Never Assessed Sex Assigned at Date Recorded Not on file documented as of this encounter Plan of Treatment Not on filedocumented as of this encounter Visit Diagnoses Not on filedocumented in this encounter Care Teams Cement Mason Apprentice Relationship Specialty Start Date End Date Shiraz Simeon PA-C PCP - General 11/02/11 03/01/16 [address] [place] [address] documented as of this encounter
--- OUTSIDE RECORDS SUMMARY | 2022-06-08 11:10 | XMS_ITS | Encounter Summary ---
:1945 Author Organization [facility] Address [address] [place] [address] Care Team Providers Name Role Phone Shiraz Simeon PA-C Primary Care Provider Reason for Visit Reason Comments Follow-up Encounter Details Date Type Department Care Team Description 04/04/2012 [facility] Anna Coreas, Iron defic iency anemia; Encounter [facility] Need for prophylactic vaccination and in oculation against influenza; [facility] On[facility] [address] [place] NSAID-induced gastric ulcer [address] [facility] [address] [place] [address] [phone] Social History Tobacco Use Types Packs/Day Years [...] signed by Anna Coreas MD at 08/03/12 8815 Author: Anna Coreas MD Service: (none) Author Type: Physician Filed: 08/03/12 1100 Note Time: 04/04/12 1143 Status: Signed Ticket Taker: Anna Coreas MD (Physician) NAME: RONDA CORBIN MR#: [id number] CSN: [id number] AUTHENTICATING CLINICIAN: Anna Coreas MD CLINIC PROGRESS [...] CURRENT MEDICATIONS: As reviewed and updated in [facility] health profile today. INTERIM HISTORY: Ms. Corbin [...] be able to sell her property up [place] and to be able to retire. She [...] iron infusion replacement. CC:MEDQ C: CONFIRM #: [id number] T [address] BUYER documented in this encounter Plan of Treatment Not on filedocumented as of this encounter Visit Diagnoses Diagnosis Iron deficiency anemia Iron deficiency anemia, unspecified Need for prophylactic vaccination and in oculation against influenza NSAID-induced gastric ulcer Gastric ulcer, unspecified as acute or c hronic, without mention of hemorrhage, perforation, or obstruction documented in this encounter Care Teams Scheduling Coordinator Relationship Specialty Start Date End Date Shiraz Simeon PA-C PCP - General 11/02/11 03/01/16 [address] [place] [address] documented as of this encounter
--- OUTSIDE RECORDS SUMMARY | 2022-06-08 11:10 | XMS_ITS | Encounter Summary ---
:1945 Author Organization [employer] Address [address] [place] [address] Care Team Providers Name Role Phone Shiraz Simeon PA-C Primary Care Provider Encounter Details Date Type Department Care Team Description 06/07/2012 Lab Visit [facility] Iron deficiency anemia [address] [place], [place] [id number] Social History Tobacco Use Types Packs/Day Years [...] days and I can place orders in [place].Thanks.------Notes Recorded by Lydia Monk RN on 06/07/2012 at 2:44 PMPatient given results. She states she feels well better than she has in a long time. If you feel sheneeds to get IV iron she is okay with that. She said just schedule it and let her know when. Pt on recall for 4 month f/u in Aug 2012. Please advise. Thanks. PILOT Miscellaneous - 08/11/2016 12:09 PM CSTNotes Recorded [...] days and I can place orders in [place].Thanks.------Notes Recorded by Lydia Monk RN on 06/07/2012 at 2:44 PMPatient given results. She states she feels well better than she has in a long time. If you feel sheneeds to get IV iron she is okay with that. She said just schedule it and let her know when. Pt on recall for 4 month f/u in Aug 2012. Please advise. Thanks. PILOT Carlos - 08/11/2016 12:09 PM CSTNotes Recorded [...] days and I can place orders in [place].Thanks.------Notes Recorded by Lydia Monk RN on 06/07/2012 at 2:44 PMPatient given results. She states she feels well better than she has in a long time. If you feel sheneeds to get IV iron she is okay with that. She said just schedule it and let her know when. Pt on recall for 4 month f/u in Aug 2012. Please advise. Thanks. PILOT documented in this encounter Plan of Treatment Not on filedocumented as of this encounter Procedures Procedure Name Priority Date/Time Associated Comments Diagnosis COMPLETE BLOOD STAT 06/07/2012 8:52 AM Iron deficiency Resu lts for this COUNT-W/DIFF YARD PILOT anemia procedure are i n the results section. DIFFERENTIAL STAT 06/07/2012 8:52 AM Results f or this YARD PILOT procedure are i n the results section. FERRITIN STAT 06/07/2012 8:52 AM Iron deficiency Result s for this YARD PILOT anemia procedure are i n the results section. documented in this encounter Results (ABNORMAL) Differential (06/07/2012 8:52 AM YARD PILOT) [facility] Method Time Signature Absolute 5.6 1.8 [...] Volume Laterality 06/07/2012 8:52 AM 2 8:52 YARD PILOT AM YARD PILOT Narrative HP CONVERSION - 06/07/2012 8:58 AM YARD PILOT Performed at [facility], [address] [place] [address], [place] [address] Transcriptions 08/11/2016 12:09 PM CSTNotes Recorded by [...] days and I can place orders in [place]. Thanks.------Notes Recorded by Lydia bustillo RN on [...] Number HP CONVERSION Ferritin (06/07/2012 8:52 AM YARD PILOT) athologist Signature Ferritin Serum 14 10 - 291 HP CONVERSION ng/mL Specimen Anatomical Collection Method Collection Time Receive d Time (Source) Location / / Volume Laterality 06/07/2012 8:52 AM 2 1:39 YARD PILOT PM YARD PILOT Transcriptions 08/11/2016 12:09 PM CSTNotes Recorded by [...] days and I can place orders in [place]. Thanks.------Notes Recorded by Lydia bustillo RN on [...] HP CONVERSION (ABNORMAL) Hemogram/Plts/Diff (06/07/2012 8:52 AM YARD PILOT) [facility] Method Time Signature White Blood Cell [...] Volume Laterality 06/07/2012 8:52 AM 2 8:52 YARD PILOT AM YARD PILOT Narrative HP CONVERSION - 06/07/2012 8:58 AM YARD PILOT Performed at [facility], [address] [place] [address], [place] [address] Transcriptions 08/11/2016 12:09 PM CSTNotes Recorded by [...] days and I can place orders in [place]. Thanks.------Notes Recorded by Lydia bustillo RN on [...] unspecified documented in this encounter Care Teams Milking Machine Technician Relationship Specialty Start Date End Date Shiraz Simeon PA-C PCP - General 11/02/11 03/01/[address] [place] [address] [place] [address] documented as of this encounter
--- OUTSIDE RECORDS SUMMARY | 2022-06-08 11:10 | XMS_ITS | Encounter Summary ---
:1945 Author Organization [facility] Address [address] [place] [address] Care Team Providers Name Role Phone Shiraz Simeon PA-C Primary Care Provider Encounter Details Date Type Department Care Team Description 06/17/2012 [facility] Whittington [facility] [address] [place] [address] [phone] (Wo rk) Social History Tobacco Use Types Packs/Day Years Used Date Smoking Tobacco: Never Assessed Sex Assigned at Date Recorded Not on file documented as of this encounter Plan of Treatment Not on filedocumented as of this encounter Visit Diagnoses Not on filedocumented in this encounter Care Teams Principal Statistical Programmer Relationship Specialty Start Date End Date Shiraz Simeon PA-C PCP - General 11/02/11 03/01/16 [address] [place] [address] documented as of this encounter
--- OUTSIDE RECORDS SUMMARY | 2022-06-08 11:10 | XMS_ITS | Encounter Summary ---
:1945 Author Organization [employer] Address [address] [place] [address] Care Team Providers Name Role Phone Shiraz Simeon PA-C Primary Care Provider Reason for Visit Reason Comments RESULTS, TEST Encounter Details Date Type Department Care Team Description 05/02/2012 [facility] [address] odessa Clemente MD RESULTS, TEST Gastroenterology [address] [place] [address] [place], [place] [address] [phone] Social History Tobacco Use Types Packs/Day Years [...] on filedocumented in this encounter Care Teams Elevator Mechanic Apprentice Relationship Specialty Start Date End Date Shiraz Simeon PA-C PCP - General 11/02/11 03/01/16 [address] [place] [address] documented as of this encounter
--- OUTSIDE RECORDS SUMMARY | 2022-06-08 11:10 | XMS_ITS | Encounter Summary ---
:1945 Author Organization [facility] Address [address] [place] [address] Care Team Providers Name Role Phone Shiraz Simeon PA-C Primary Care Provider Reason for Visit Reason Comments IV,THERAPY Encounter Details Date Type Department Care Team Description 03/08/2012 [facility] R ooms [address] [place], [place] [address] Social History Tobacco Use Types Packs/Day Years [...] - - 03/08/12 1323 500 mL Started Tasha Hernandez RN Intravenous - 03/08/12 [...] unspecified documented in this encounter Care Teams Chainstitch Felled Seam Operator Relationship Specialty Start Date End Date Shiraz Simeon PA-C PCP - General 11/02/11 03/01/16 [address] [place] [address] documented as of this encounter
--- OUTSIDE RECORDS SUMMARY | 2022-06-08 11:10 | XMS_ITS | Encounter Summary ---
:1945 Author Organization [employer] Address [address] [place] [address] Care Team Providers Name Role Phone Shiraz Simeon PA-C Primary Care Provider Encounter Details Date Type Department Care Team Description 12/27/2012 Lab Visit [facility] Iron deficiency anemia [address] [place], [place] [id number] Social History Tobacco Use Types Packs/Day Years [...] do hope to be able to make).thanks S SALESPERSON Miscellaneous - 08/11/2016 5:56 AM CSTNotes Recorded [...] do hope to be able to make).thanks S SALESPERSON Miscellaneous - 08/11/2016 5:56 AM CSTNotes Recorded [...] do hope to be able to make).thanks S SALESPERSON documented in this encounter Plan of Treatment [...] - 12/27/2012 9:04 AM CDT Performed at [facility], [address] [place] [address] Transcriptions 08/11/2016 5:56 AM CSTNotes Recorded by [...] CONVERSION (ABNORMAL) Hemogram/Plts/Diff (12/27/2012 9:00 AM CDT) [facility] Method Time Signature White Blood Cell 7.3 [...] - 12/27/2012 9:04 AM CDT Performed at [facility], [address] [place] [address] Transcriptions 08/11/2016 5:56 AM CSTNotes Recorded by [...] unspecified documented in this encounter Care Teams Applications Sales Representative Relationship Specialty Start Date End Date Shiraz Simeon PA-C PCP - General 11/02/11 03/01/16 [address] [place], [place] [id number] documented as of this encounter
--- OUTSIDE RECORDS SUMMARY | 2022-06-08 11:10 | XMS_ITS | Encounter Summary ---
:1945 Author Organization Pending sale to [facility] Address [address] [place] [address] Care Team Providers Name Role Phone Shiraz Simeon PA-C Primary Care Provider Reason for Visit Reason Comments Infusion Encounter Details Date Type Department Care Team Description 02/23/2012 Hospital Encounter [facility] Oncology Treatment [address] [place], [place] [address] Social History Tobacco Use Types Packs/Day Years [...] unspecified documented in this encounter Care Teams Shipfitter Relationship Specialty Start Date End Date Shiraz Simeon PA-C PCP - General 11/02/11 03/01/16 [address] [place] [address] documented as of this encounter
--- OUTSIDE RECORDS SUMMARY | 2022-06-08 11:10 | XMS_ITS | Encounter Summary ---
:1945 Author Organization [employer] Address [address] [place] [address] Care Team Providers Name Role Phone Shiraz Simeon PA-C Primary Care Provider Encounter Details Date Type Department Care Team Description 02/29/2012 Lab Visit [facility] Iron deficiency anemia [address] [place], [place] [id number] Social History Tobacco Use Types Packs/Day Years [...] 04/04. Please advise if orders needed. Thanks. UER COATER documented in this encounter Plan of Treatment [...] - 02/29/2012 9:41 AM CDT Performed at [facility], [address] [place] [address], [place] [address] Transcriptions 08/11/2016 3:11 PM CSTNotes Recorded by [...] unspecified documented in this encounter Care Teams Tooth Grinder Relationship Specialty Start Date End Date Shiraz Simeon PA-C PCP - General 11/02/11 03/01/[address] [place] [address] [place] [address] documented as of this encounter
--- OUTSIDE RECORDS SUMMARY | 2022-06-08 11:10 | XMS_ITS | Encounter Summary ---
:1945 Author Organization [facility] Address [address] [place] [address] Care Team Providers Name Role Phone Shiraz Simeon PA-C Primary Care Provider Reason for Visit Reason Comments ANEMIA Encounter Details Date Type Department Care Team Description 02/20/2012 Notes/Orders [facility] [phone] [place] [phone] (Wo rk) Social History Tobacco Use Types [...] on filedocumented in this encounter Care Teams Retail Cosmetics Sales Counter Manager Relationship Specialty Start Date End Date Shiraz Simeon PA-C PCP - General 11/02/11 03/01/16 [address] [place], [place] [address] documented as of this encounter
--- OUTSIDE RECORDS SUMMARY | 2022-06-08 11:10 | XMS_ITS | Encounter Summary ---
:1945 Author Organization [facility] Address [address], [place] [address] Care Team Providers Name Role Phone Shiraz Simeon PA-C Primary Care Provider Reason for Visit Reason Comments Infusion Encounter Details Date Type Department Care Team Description 02/26/2012 [facility] Isela Yates, Iron def iciency Encounter [facility] Oncology [address] [place] [id number] Social History Tobacco Use Types Packs/Day Years [...] unspecified documented in this encounter Care Teams Plan Consultant Relationship Specialty Start Date End Date Shiraz Simeon PA-C PCP - General 11/02/11 03/01/16 [address] [place] [address] documented as of this encounter
--- OUTSIDE RECORDS SUMMARY | 2022-06-08 11:10 | XMS_ITS | Encounter Summary ---
:1945 Author Organization [employer] Address [address] [place] [address] Care Team Providers Name Role Phone Shiraz Simeon PA-C Primary Care Provider Encounter Details Date Type Department Care Team Description 02/14/2012 Lab Visit [facility] Iron deficiency anemia [address] [place], [place] [id number] Social History Tobacco Use Types Packs/Day Years [...] remember the details. Please call patient at [phone], okay to leave detailed message. ------Notes Recorded [...] and cc appt 04/04. Please advise. Thanks. ICATING MACHINE OPERATOR Miscellaneous - 08/11/2016 3:38 PM CSTNotes Recorded [...] remember the details. Please call patient at [phone], okay to leave detailed message. ------Notes Recorded [...] and cc appt 04/04. Please advise. Thanks. ICATING MACHINE OPERATOR documented in this encounter Plan [...] - 02/14/2012 10:42 AM CDT Performed at [facility] [place], [address] [place] [address] Transcriptions 08/11/2016 3:38 PM CSTNotes Recorded by [...] remember the details. Please call patient at [phone], okay to leave detailed message.------ Notes Recorded [...] Anna Coreas MD LAB_1 Performing Organization Address City/[facility] Code Phon e Number HP CONVERSION (ABNORMAL) Ferritin (02/14/2012 9:18 AM CDT) athologist Signature Ferritin Serum 8 (L) 10 - 291 HP CONVERSION ng/mL Specimen Anatomical Collection Method Collection Time Receive d Time (Source) Location / / Volume Laterality 02/14/2012 9:18 AM 2 1:23 CDT PM CDT Anna Coreas MD LAB_1 Performing Organization Address [facility] Phon e Number HP CONVERSION (ABNORMAL) Hemogram/Plts/Diff [...] - 02/14/2012 10:42 AM CDT Performed at [facility] [place], [address] [place] [address] Transcriptions 08/11/2016 3:38 PM CSTNotes Recorded by [...] remember the details. Please call patient at [phone], okay to leave detailed message.------ Notes Recorded [...] unspecified documented in this encounter Care Teams Beading Installer Relationship Specialty Start Date End Date Shiraz Simeon PA-C PCP - General 11/02/11 03/01/16 [address] [place] [address] documented as of this encounter
--- OUTSIDE RECORDS SUMMARY | 2022-06-08 11:10 | XMS_ITS | Encounter Summary ---
:1945 Author [facility] Address [address] [facility] [place] [address] Care Team Providers Name Role Phone Shiraz Simeon PA-C Primary Care Provider Encounter Details Date Type Department Care Team Description 04/25/[address] Scan [address] [facility] [place] [address] Social History Tobacco Use Types Packs/Day Years Used Date Smoking Tobacco: Never Assessed Sex Assigned at Date Recorded Not on file documented as of this encounter Plan of Treatment Not on filedocumented as of this encounter Visit Diagnoses Not on filedocumented in this encounter Care Teams Customer Leader Relationship Specialty Start Date End Date Shiraz Simeon PA-C PCP - General 11/02/11 03/01/[address] [place] [id number] documented as of this encounter
--- OUTSIDE RECORDS SUMMARY | 2022-06-08 11:10 | XMS_ITS | Encounter Summary ---
:1945 Author Organization [facility] Address [address] [place] [address] Care Team Providers Name Role Phone Shiraz Simeon PA-C Primary Care Provider Reason for Visit Reason Comments IV,THERAPY Encounter Details Date Type Department Care Team Description 06/18/2012 Hospital Encounter [facility] Oncology Treatment [address] [place], [place] [address] Social History Tobacco Use Types Packs/Day Years Used Date Smoking Tobacco: Never Assessed Sex Assigned at Date Recorded Not on file documented as of this encounter Last Filed Vital Signs Vital Sign Reading Time Taken Comments Blood Pressure 86/55 06/18/2012 9:38 AM EARLY CHILDHOOD EDUCATION SPECIALIST Pulse 78 06/18/2012 9:38 AM EARLY CHILDHOOD EDUCATION SPECIALIST Temperature - - Respiratory Rate - - [...] Gonzalez RN Intravenous - 06/18/12944 - - Y CHILDHOOD EDUCATION SPECIALIST documented in this encounter Plan of Treatment Not on filedocumented as of this encounter Visit Diagnoses Diagnosis Iron deficiency anemia Iron deficiency anemia, unspecified documented in this encounter Care Teams Councilman Relationship Specialty Start Date End Date Shiraz Simoen PA-C PCP - General 11/02/11 03/01/16 [address] [place] [address] documented as of this encounter
--- OUTSIDE RECORDS SUMMARY | 2022-06-08 11:10 | XMS_ITS | Encounter Summary ---
:1945 Author Organization [employer] Address [address] [place] [address] Care Team Providers Name Role Phone Shiraz Simeon PA-C Primary Care Provider Reason for Visit Reason Comments Provider Orders Encounter Details Date Type Department Care Team Description 04/19/2012 [facility] [address] odessa Clemente MD Provider Orders Endoscopy [address] [place] [address] [place] [address] [phone] Social History Tobacco Use Types Packs/Day Years [...] on filedocumented in this encounter Care Teams Court Officer Relationship Specialty Start Date End Date Shiraz Simeon PA-C PCP - General 11/02/11 03/01/16 [address] [place], [place] [address] documented as of this encounter
--- OUTSIDE RECORDS SUMMARY | 2022-06-08 11:10 | XMS_ITS | Encounter Summary ---
:1945 Author Organization [facility] Address [address] [place] [address] Care Team Providers Name Role Phone Shiraz Simeon PA-C Primary Care Provider Reason for Visit Reason Comments Infusion Encounter Details Date Type Department Care Team Description 03/06/2012 Hospital Encounter [facility] Oncology Treatment [address] [place], [place] [address] Social History Tobacco Use Types Packs/Day Years [...] unspecified documented in this encounter Care Teams Mobile Equipment Servicer Relationship Specialty Start Date End Date Shiraz Simeon PA-C PCP - General 11/02/11 03/01/16 [address] [place], [place] [address] documented as of this encounter
--- OUTSIDE RECORDS SUMMARY | 2022-06-08 11:10 | XMS_ITS | Encounter Summary ---
:1945 Author Organization [employer] Address [address] [place] [address] Care Team Providers Name Role Phone Shiraz Simeon PA-C Primary Care Provider Encounter Details Date Type Department Care Team Description 04/19/2012 Hospital Encounter [facility] 6500 NSAID-induced gastric Endoscopy ulcer [address] [facility] [place] [address] Social History Tobacco Use Types [...] 04/19/12 0857 Note Time: 04/19/12739 Status: Signed Licensed Insurance Sales Agent: Tyler Clemente MD (Physician) Patient Name: Shruti [...] CT scan. Possible surgical consultation. 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 All Rights Reserved. The codes documented in this report are preliminary and upon medical claims examiner review may be revised to meet current [...] for the patient's gastric outlet obstruction. Tyler Celmente MD RAD CT Pathology Report (04/19/2012 8:48 AM CDT) Specimen (Source) Anatomical Collection Method Collection Time Re ceived Time Location / / Volume Laterality 04/19/2012 8:48 AM CDT Narrative HP CONVERSION - 04/22/2012 3:18 PM CDT ?Final SURGICAL PATHOLOGY REPORT Pathology #: [id number] ? Date Obtained: 04/19/2012 ?Date Received: 04/19/2012 [...] gr eatest dimension. ??Entirely submitted in cassette [id number]. ? WEYAL MICROSCOPIC DESCRIPTION: Microscopic examination performed. CPT Codes: ?61097 x 1 ??54857 x 1 ? End of Report Tyler Clemente MD LAB_1 Performing Organization Address City/[facility]/ZIP Code Phon e Number HP CONVERSION ENDOSCOPY OBTAINED ANATOMICAL PATH (04/19/2012 8:48 AM CDT) athologist Signature Endo Tis See Path HP CONVERSION Specimen (Source) Anatomical Collection Method Collection Time Re ceived Time Location / / Volume Laterality 04/19/2012 8:48 AM CDT Tyler Clemente MD LAB_1 Performing Organization Address [facility] Phon e Number HP CONVERSION documented in this encounter Visit Diagnoses Diagnosis NSAID-induced gastric ulcer Gastric ulcer, unspecified as acute or c hronic, without mention of hemorrhage, perforation, or obstruction documented in this encounter Care Teams Terrazzo Helper Relationship Specialty Start Date End Date Shiraz Simeon PA-C PCP - General 11/02/11 03/01/16 [address] [place] [address] documented as of this encounter
--- OUTSIDE RECORDS SUMMARY | 2022-06-08 11:10 | XMS_ITS | Encounter Summary ---
:1945 Author Organization [employer] Address [address] [place] [address] Care Team Providers Name Role Phone Shiraz Simeon PA-C Primary Care Provider Encounter Details Date Type Department Care Team Description 04/01/2012 Lab Visit [facility] Iron deficiency anemia [address] [place], [place] [id number] Social History Tobacco Use Types Packs/Day Years [...] to keep appt later this week. Thanks. ESTATE AGENT documented in this encounter Plan of Treatment [...] Results (ABNORMAL) Differential (04/01/2012 9:03 AM CDT) [facility] Method Time Signature Absolute 10.3 (H) 1.8 [...] Anna Coreas MD LAB_1 Performing Organization Address City/[facility]/ZIP Code Phon e Number HP CONVERSION Ferritin (04/01/2012 9:03 AM CDT) athologist Signature Ferritin Serum 202 10 - 291 HP CONVERSION ng/mL Specimen Anatomical Collection Method Collection Time Receive d Time (Source) Location / / Volume Laterality 04/01/2012 9:03 AM 2 CDT 12:41 PM CDT Anna Coreas MD LAB_1 Performing Organization Address City/[facility]/ZIP Code Phon e Number HP CONVERSION (ABNORMAL) Hemogram/Plts/Diff (04/01/2012 9:03 AM CDT) [facility] Method Time Signature White Blood Cell 12.4 [...] - 04/01/2012 9:11 AM CDT Performed at [facility], [address] [place], [place] [address] [address] Transcriptions 08/11/2016 2:18 PM CSTNotes Recorded by aMty Grijalva RN on 04/01/2012 at 10:58 AMSpoke [...] unspecified documented in this encounter Care Teams Manager Process Excellence Relationship Specialty Start Date End Date Shiraz Simeon PA-C PCP - General 11/02/11 03/01/16 [facility] [place] [address] [id number] documented as of this encounter
--- OUTSIDE RECORDS SUMMARY | 2022-06-08 11:10 | XMS_ITS | Encounter Summary ---
:1945 Author Organization [employer] Address [address] [place] [address] Care Team Providers Name Role Phone Shiraz Simeon PA-C Primary Care Provider Reason for Visit Reason Comments MEDICATION CHECK Encounter Details Date Type Department Care Team Description 10/30/2012 Office Visit Shiraz Cabezas, Restless legs syndrome (RLS) (Primary Dx); [address] PA-C Generalized anxiety disorder; [place] [address] Chronic back pain; [phone] [place] [address] NSAID-induced gastric ulcer; [phone] Iron deficiency anemia; (Work) Need for qadeawrlkk-rmdijys-iesuapcvz (T dap) vaccine; [phone] Need for pneumo coccal vaccination; (Fax) Screening [...] appointment with the Orthopedic department at the [facility] by calling [phone]. documented in this encounter Progress Notes Shiraz [...] 2011. 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 She is due to see her mine laborer, and would like her labs done today [...] anemia Iron deficiency anemia, unspecified Need for ywoboffdfz-czzxjar-sqxdeqkkn (T dap) vaccine Need for prophylactic vaccination with c ombined zikdoqoyqz-wvmxhhk-uracuxxod (DTP) vaccine Need for pneumococcal vaccination Need for prophylactic vaccination agains t streptococcus pneumoniae (pneumococcus) Screening cholesterol level Screening for lipoid disorders Trigger finger (acquired) documented in this encounter Care Teams Rat Farmer Relationship Specialty Start Date End Date Shiraz Simeon PA-C PCP - General 11/02/11 03/[address] [place] [address] documented as of this encounter
--- OUTSIDE RECORDS SUMMARY | 2022-06-08 11:10 | XMS_ITS | Encounter Summary ---
:1945 Author Organization [facility] Address [address], [place] [address] Care Team Providers Name Role Phone Shiraz Simeon PA-C Primary Care Provider Encounter Details Date Type Department Care Team Description 06/19/2012 [facility] Iron defici ency Encounter Keegan Henao MD anemia Center Oncology [address] [place] [address] [place] [address] [phone] Social History Tobacco Use Types Packs/Day Years [...] RN Intravenous - 06/19/12 1008 - - O TAPE LIBRARIAN documented in this encounter Plan of Treatment Not on filedocumented as of this encounter Visit Diagnoses Diagnosis Iron deficiency anemia Iron deficiency anemia, unspecified documented in this encounter Care Teams Child Development Instructor Relationship Specialty Start Date End Date Shiraz Simeon PA-C PCP - General 11/02/11 03/01/16 [address] [place] [address] documented as of this encounter
--- OUTSIDE RECORDS SUMMARY | 2022-06-08 11:10 | XMS_ITS | Encounter Summary ---
:1945 Author Organization [employer] Address [address] [place] [address] Care Team Providers Name Role Phone Shiraz Simeon PA-C Primary Care Provider Encounter Details Date Type Department Care Team Description 02/05/2012 Hospital Encounter [facility] Zaki Tucker, Center/ Observation MD [address] [address] [phone] Social History Tobacco Use Types Packs/Day Years [...] PN BLOOD BANK ORDERS Performing Organization Address City/[facility] Phon e Number HP CONVERSION PREP RBC LEUKOREDUCED (02/05/2012 3:42 PM CDT) Patholo gist Method Time Signature BBproduct RBC, LR HP CONVERSION BBunitnumber [id number] HP CONVERSION BBdispense transfused HP CONVERSION BBcoding ISBT HP CONVERSION BBproduct RBC, LR HP CONVERSION BBunitnumber [id number] HP CONVERSION BBdispense transfused HP CONVERSION BBcoding ISBT HP CONVERSION Comment: RBC, LR ? [id number] ?transfused ?? 02/05/12 ??17:17 RBC, LR ? [id number] ?transfused ?? 02/05/12 ??19:37 Specimen (Source) Anatomical Collection Method Collection Time Re ceived Time Location / / Volume Laterality 02/05/2012 3:42 PM CDT Francisca Tucker MD PN BLOOD BANK ORDERS Performing Organization Address [facility] Phon e Number HP CONVERSION documented in this encounter Visit Diagnoses Not on filedocumented in this encounter Care Teams Wreath And Garland Maker Relationship Specialty Start Date End Date Shiraz Simeon PA-C PCP - General 11/02/11 03/01/16 [address] [place] [address] documented as of this encounter
--- OUTSIDE RECORDS SUMMARY | 2022-06-08 11:10 | XMS_ITS | Encounter Summary ---
:1945 Author Organization [facility] Address [address] [place] [address] Care Team Providers Name Role Phone Shiraz Simeon PA-C Primary Care Provider Encounter Details Date Type Department Care Team Description 02/08/2012 Notes/Orders HealthPartAnna Leo MD Iron deficiency [facility] Cancer [address] [facility] anemia (Primary Dx) Center Oncology [facility], [address] [place] [address] [place], [place] [phone] [address] (Work) [phone] Social History Tobacco Use Types Packs/Day Years Used Date Smoking Tobacco: Never Assessed Sex Assigned at Date Recorded Not on file documented as of this encounter Plan of Treatment Not on filedocumented as of this encounter Visit Diagnoses Diagnosis Iron deficiency anemia - Primary Iron deficiency anemia, unspecified documented in this encounter Care Teams Plisse Machine Operator Relationship Specialty Start Date End Date Shiraz Simeon PA-C PCP - General 11/02/11 03/01/[address] [place] [id number] documented as of this encounter
--- OUTSIDE RECORDS SUMMARY | 2022-06-08 11:10 | XMS_ITS | Encounter Summary ---
:1945 Author Organization [facility] Address [address] [place] [address] Care Team Providers Name Role Phone Shiraz Simeon PA-C Primary Care Provider Reason for Visit Reason Comments ANEMIA Infusion Encounter Details Date Type Department Care Team Description 02/28/2012 Hospital Encounter [facility] marcos [facility] ane mauricio Oncology Treatment [address] [place], [place] [address] Social History Tobacco Use Types Packs/Day Years [...] unspecified documented in this encounter Care Teams Insurance Job Titles Relationship Specialty Start Date End Date Shiraz Simeon PA-C PCP - General 11/02/11 03/01/16 [address] [place], [place] [address] documented as of this encounter
--- OUTSIDE RECORDS SUMMARY | 2022-06-08 11:10 | XMS_ITS | Encounter Summary ---
:1945 Author Organization [facility] Address [address] [place] [address] Care Team Providers Name Role Phone Shiraz Simeon PA-C Primary Care Provider Encounter Details Date Type Department Care Team Description 12/30/2012 [facility] Wh[facility] On[facility] [address] [place] [address] [phone] (Wo rk) Social History Tobacco Use Types Packs/Day Years Used Date Smoking Tobacco: Never Assessed Sex Assigned at Date Recorded Not on file documented as of this encounter Plan of Treatment Not on filedocumented as of this encounter Visit Diagnoses Not on filedocumented in this encounter Care Teams Paper Plate Machine Tender Relationship Specialty Start Date End Date Shiraz Simeon PA-C PCP - General 11/02/11 03/01/16 [address] [place] [address] documented as of this encounter
--- OUTSIDE RECORDS SUMMARY | 2022-06-08 11:10 | XMS_ITS | Encounter Summary ---
:1945 Author Organization [employer] Address [address] [place] [address] Care Team Providers Name Role Phone Shiraz Simeon PA-C Primary Care Provider Encounter Details Date Type Department Care Team Description 10/30/2012 Lab Visit [facility] Screening cholesterol level; [address] Iron deficiency anemia; [place] [address] Chronic back pain [phone] Social History Tobacco Use Types Packs/Day Years [...] Results (ABNORMAL) Differential (10/30/2012 9:56 AM CDT) [facility] gist Method Time Signature Absolute 5.9 [...] - 10/30/2012 9:59 AM CDT Performed at [facility], [address] [place] [address] Shiraz Simeon PA-C LAB_1 Performing Organization Address City/[facility] Phon e Number HP CONVERSION BUN (10/30/2012 9:56 AM CDT) athologist Signature Blood Urea 24 5 - 26 HP CONVERSION Nitrogen mg/dL Specimen Anatomical Collection Method Collection Time Receive d Time (Source) Location / / Volume Laterality 10/30/2012 9:56 AM 3 CDT 12:20 PM CDT Narrative HP CONVERSION - 10/30/2012 12:55 PM CDT Performed at [facility], [address] [place] [address] Shiraz Simeon PA-C LAB_1 Performing Organization Address City/[facility] Phon e Number HP CONVERSION Creatinine / [...] - 10/30/2012 12:55 PM CDT Performed at [facility], [address] [place] [address] Shiraz Simeon PA-C LAB_1 Performing Organization Address [facility] Phon e Number HP CONVERSION ALT (SGPT) (10/30/2012 9:56 AM CDT) [facility] Method Time Signature Alanine 19 4 - 55 HP CONVERSION Aminotransferase U/L Specimen Anatomical Collection Method Collection Time Receive d Time (Source) Location / / Volume Laterality 10/30/2012 9:56 AM 3 CDT 12:20 PM CDT Narrative HP CONVERSION - 10/30/2012 12:55 PM CDT Performed at [facility], [address] [place] [address] Shiraz Simeon PA-C LAB_1 Performing Organization Address [facility] Phon e Number HP CONVERSION (ABNORMAL) IRON BINDING CAPACITY (INCL IRON) (10/30/2012 9:56 AM CDT) [facility] Method Time Signature Iron, Serum 29 (L) [...] Organization Address [facility] Phon e Number HP CONVERSION (ABNORMAL) Ferritin (10/30/2012 9:56 AM CDT) P athologist Signature Ferritin Serum 7 (L) 10 - 291 HP CONVERSION ng/mL Specimen Anatomical Collection Method Collection Time Receive d Time (Source) Location / / Volume Laterality 10/30/2012 9:56 AM 3 1:39 CDT PM CDT Shiraz Simeon PA-C LAB_1 Performing Organization Address [facility] Phon e Number HP CONVERSION (ABNORMAL) Hemogram/Plts/Diff (10/30/2012 9:56 AM CDT) [facility] Method Time Signature White Blood Cell 8.6 [...] - 10/30/2012 9:59 AM CDT Performed at [facility], [address] [place] [address] Shiraz Simeon PA-C LAB_1 Performing Organization Address City/[facility] Phon e Number HP CONVERSION Lipid Panel and Direct LDL(If Needed) (10/30/2012 9:56 AM CDT) [facility] Method Time Signature Cholesterol 167 0 - [...] - 10/30/2012 12:55 PM CDT Performed at [facility], [address] [facility], [place] [address] Shiraz Simeon PA-C LAB_1 Performing Organization Address City/State/ZIP Code Phon e Number HP CONVERSION documented in this encounter Visit Diagnoses Diagnosis Screening cholesterol level Screening for lipoid disorders Iron deficiency anemia Iron deficiency anemia, unspecified Chronic back pain Backache, unspecified documented in this encounter Care Teams Appeals Specialist Relationship Specialty Start Date End Date Shiraz Simeon PA-C PCP - General 11/02/11 03/01/16 [address] [place] [address] documented as of this encounter
--- OUTSIDE RECORDS SUMMARY | 2022-06-08 11:10 | XMS_ITS | Encounter Summary ---
:1945 Author Organization [email or web address] Address [address], [place] [address] Care Team Providers Name Role Phone Shiraz Simeon PA-C Primary Care Provider Reason for Visit Reason Comments Follow-up Encounter Details Date Type Department Care Team Description 03/08/2012 Initial Consult [facility] Tyler Clemente, MATTIEA ID-induced 6500 gastric ulcer Gastroenterology [address] [place] (Primary Dx) [address] [place] [id number] Social History Tobacco Use Types Packs/Day Years [...] signed by Tyler Clemente MD at 03/11/12 5950 Author: Tyler Clemente MD Service: (none) Author Type: Physician Filed: 03/11/12 1637 Note Time: 03/08/121811 Status: Signed Bread Panner: Tyler Clemente MD (Physician) NAME: RONDA CORBIN MR#: [id number] CSN: [id number] AUTHENTICATING CLINICIAN: Tyler Clemente MD CONFIRM #: [id number] LOC: 3533 CLINIC PROGRESS NOTE DATE OF [...] She agreed with the plan. CC: SHIRAZ ISMEON PA-C [address] [place] [address] DAO:MEDQ C: CONFIRM #: [id number] documented in this encounter Plan of Treatment Not on filedocumented as of this encounter Visit Diagnoses Diagnosis NSAID-induced gastric ulcer - Primary Gastric ulcer, unspecified as acute or c hronic, without mention of hemorrhage, perforation, or obstruction documented in this encounter Care Teams Music Researcher Relationship Specialty Start Date End Date Shiraz Simeon PA-C PCP - General 11/02/11 03/01/[address] [place] [id number] documented as of this encounter
--- OUTSIDE RECORDS SUMMARY | 2022-06-08 11:10 | XMS_ITS | Encounter Summary ---
:1945 Author Organization [facility] Address [address] [place] [address] Care Team Providers Name Role Phone Shiraz Simeon PA-C Primary Care Provider Encounter Details Date Type Department Care Team Description 02/20/2012 Notes/Orders [facility] Leo MD Iron deficiency [facility] Cancer [address] [facility] anemia (Primary Dx) Center Oncology [facility], [address] [place] [address] [place], [place] [phone] (Work) [phone] Social History Tobacco Use Types Packs/Day Years Used Date Smoking Tobacco: Never Assessed Sex Assigned at Date Recorded Not on file documented as of this encounter Plan of Treatment Not on filedocumented as of this encounter Visit Diagnoses Diagnosis Iron deficiency anemia - Primary Iron deficiency anemia, unspecified documented in this encounter Care Teams Gas Singer Relationship Specialty Start Date End Date Shiraz Simeon PA-C PCP - General 11/02/11 03/01/[address] [place] [id number] documented as of this encounter
--- OUTSIDE RECORDS SUMMARY | 2022-06-08 11:10 | XMS_ITS | Encounter Summary ---
:1945 Author Organization [employer] Address [address] [place] [address] Care Team Providers Name Role Phone Shiraz Simeon PA-C Primary Care Provider Encounter Details Date Type Department Care Team Description 04/24/2012 Lab Visit [facility] NSAID-induced gastric ulcer [address] [place], [place] [id number] Social History Tobacco Use Types Packs/Day Years [...] - 04/24/2012 10:44 AM CDT Performed at [facility], [address] [place] [address] Tyler Clemente MD LAB_1 Performing Organization Address City/[facility] Code Phon e Number [...] LAB_1 Performing Organization Address City/[facility] Phon e Number HP CONVERSION (ABNORMAL) GASTRIN (04/24/2012 8:25 AM CDT) P athologist Signature Gastrin 156 (H) 0 - 100 HP CONVERSION pg/mL Specimen Anatomical Collection Method Collection Time Receive d Time (Source) Location / / Volume Laterality 04/24/2012 8:25 AM 2 6:26 CDT PM CDT Narrative HP CONVERSION - 04/26/2012 3:27 PM CDT Performed at [facility] [address] [place] [address] Tyler Clemente MD LAB_1 Performing Organization Address City/[facility] Code Phon e Number HP CONVERSION documented in this encounter Visit Diagnoses Diagnosis NSAID-induced gastric ulcer Gastric ulcer, unspecified as acute or c hronic, without mention of hemorrhage, perforation, or obstruction documented in this encounter Care Teams Dials Supervisor Relationship Specialty Start Date End Date Shiraz Simeon PA-C PCP - General 11/02/11 03/01/16 [address] [place], [place] [id number] documented as of this encounter
--- OUTSIDE RECORDS SUMMARY | 2022-06-08 11:10 | XMS_ITS | Encounter Summary ---
:1945 Author Organization [employer] Address [address] [place] [address] Care Team Providers Name Role Phone Shiraz Simeon PA-C Primary Care Provider Reason for Visit Reason Comments Symptoms Encounter Details Date Type Department Care Team Description 05/02/2012 [facility] [facility] [address] Clemente MD Symptoms Gastroenterology [address] [place] [address] [place], [place] [address] [phone] Social History Tobacco Use Types Packs/Day Years [...] would contribute to ongoing gastric ulceration. Her magnetic tester may need to consider a narcotic-type pain [...] on filedocumented in this encounter Care Teams Infant Babysitter Relationship Specialty Start Date End Date Shiraz Simeon PA-C PCP - General 11/02/11 03/01/[address] [place] [id number] documented as of this encounter
--- OUTSIDE RECORDS SUMMARY | 2022-06-08 11:10 | XMS_ITS | Encounter Summary ---
:1945 Author Organization [facility] Address [address] [place] [address] Care Team Providers Name Role Phone Shiraz Simeon PA-C Primary Care Provider Reason for Visit Reason Comments Infusion Encounter Details Date Type Department Care Team Description 06/17/[address] [facility] Oncology Treatment R ooms [address] [place], [place] [address] Social History Tobacco Use Types Packs/Day Years Used Date Smoking Tobacco: Never Assessed Sex Assigned at Date Recorded Not on file documented as of this encounter Last Filed Vital Signs Vital Sign Reading Time Taken Comments Blood Pressure 101/52 06/17/2012 11:24 AM BATTERY VENT PLUG INSERTER Pulse 75 06/17/2012 11:24 AM BATTERY VENT PLUG INSERTER Temperature 36.7 ??C (98.1 ??F) 06/17/2012 11:24 AM BATTERY VENT PLUG INSERTER Respiratory Rate - - Oxygen Saturation - [...] RN Intravenous - 06/17/12 1001 - - ERY VENT PLUG INSERTER documented in this encounter Plan of Treatment Not on filedocumented as of this encounter Visit Diagnoses Diagnosis Iron deficiency anemia Iron deficiency anemia, unspecified documented in this encounter Care Teams Ordained Minister Relationship Specialty Start Date End Date Shiraz Simeon PA-C PCP - General 11/02/11 03/01/16 [address] [place] [address] documented as of this encounter
--- OUTSIDE RECORDS SUMMARY | 2022-06-08 11:10 | XMS_ITS | Encounter Summary ---
:1945 Author Organization [facility] Address [address] [place] [address] Care Team Providers Name Role Phone Shiraz Simeon PA-C Primary Care Provider Reason for Visit Reason Comments IV,THERAPY Encounter Details Date Type Department Care Team Description 03/01/2012 Hospital Encounter [facility] marcos [facility] Oncology Treatment R ooms [address] [place], [place] [address] Social History Tobacco Use Types Packs/Day Years [...] Simeon PA-C PCP - General 11/02/11 03/01/16 [address] [place], [place] [address] documented as of this encounter
--- OUTSIDE RECORDS SUMMARY | 2022-06-08 11:11 | XMS_ITS | Encounter Summary ---
:1945 Author Organization [employer] Address [address] [place] [address] Care Team Providers Name Role Phone Shiraz Simeon PA-C Primary Care Provider Reason for Visit Reason Comments Appt. Needed Encounter Details Date Type Department Care Team Description 11/16/2011 Tele[facility] [address] Clemente MD Appt. Needed Gastroenterology [address] [place] [address] [place] [address] [phone] Social History Tobacco Use Types Packs/Day Years [...] on filedocumented in this encounter Care Teams Indian Trader Relationship Specialty Start Date End Date Shiraz Simeon PA-C PCP - General 11/02/11 03/01/16 [address] [place] [address] documented as of this encounter
--- OUTSIDE RECORDS SUMMARY | 2022-06-08 11:11 | XMS_ITS | Encounter Summary ---
:1945 Author Organization [facility] Address [address] [place] [address] Care Team Providers Name Role Phone Unassigned, Provider Primary Care Provider Unavailable Reason for Visit Reason Comments KIDNEY STONE Encounter Details Date Type Department Care Team Description 08/09/2000 Telephone Careline Pepper Acevedo RN KIDNEY STONE [address] [place], [place] [address] [phone] [place] [address] Social History Tobacco Use Types Packs/Day Years Used Date Smoking Tobacco: Never Assessed Sex Assigned at Date Recorded Not on file documented as of this encounter Nursing Notes 08/09/2000 11:59 PM MIG TIG WELDER >> PEPPER ACEVEDO Kirsten Aug 09, 2000 [...] filedocumented in this encounter Care Teams Supervisor Food Checkers And Cashiers Relationship Specialty Start Date End Date Unassigned, Provider PCP - General 04/03/00 10/31/[address] [place] [address] documented as of this encounter
--- OUTSIDE RECORDS SUMMARY | 2022-06-08 11:11 | XMS_ITS | Encounter Summary ---
:1945 Author Organization [employer] Address [address] [place] [address] Care Team Providers Name Role Phone Shiraz Simeon PA-C Primary Care Provider Encounter Details Date Type Department Care Team Description 11/16/2011 Notes/Orders [facility] Shiraz Simeon PA-C [address] [place] [address] [place] [address] [phone] (Wo rk) Social History Tobacco Use Types Packs/Day Years Used Date Smoking Tobacco: Never Assessed Sex Assigned at Date Recorded Not on file documented as of this encounter Plan of Treatment Not on filedocumented as of this encounter Visit Diagnoses Not on filedocumented in this encounter Care Teams Lobster Fisherman Relationship Specialty Start Date End Date Shiraz Simeon PA-C PCP - General 11/02/11 03/01/[address] [place] [address] [id number] documented as of this encounter
--- OUTSIDE RECORDS SUMMARY | 2022-06-08 11:11 | XMS_ITS | Encounter Summary ---
:1945 Author Organization [facility] Address [address] [place] [address] Care Team Providers Name Role Phone Shiraz Simeon PA-C Primary Care Provider Encounter Details Date Type Department Care Team Description 01/23/2012 Imaging [facility] [address] ad[address] [place], [place] [address] Social History Tobacco Use Types Packs/Day Years Used Date Smoking Tobacco: Never Assessed Sex Assigned at Date Recorded Not on file documented as of this encounter Plan of Treatment Not on filedocumented as of this encounter Visit Diagnoses Not on filedocumented in this encounter Care Teams Reinsurance Claim Analyst Relationship Specialty Start Date End Date Shiraz Simeon PA-C PCP - General 11/02/11 03/01/[address] [id number] documented as of this encounter
--- OUTSIDE RECORDS SUMMARY | 2022-06-08 11:11 | XMS_ITS | Encounter Summary ---
:1945 Author Organization [employer] Address [address] [address] Care Team Providers Name Role Phone Shiraz Simeon PA-C Primary Care Provider Encounter Details Date Type Department Care Team Description 11/13/2011 Hospital Encounter Specialty Center 650 0 Endoscopy Anemia [address] [place], [place] [address] Social History Tobacco Use Types Packs/Day Years [...] 11/13/11 1603 Note Time: 11/13/111449 Status: Signed Services Program Manager: Tyler Clemente MD (Physician) Patient Name: Shruti [...] 8 weeks to check healing. CPT4 Code(s): 57558, Upper gastrointestinal endoscopy including esophagus, stomach, and either the duodenum and/or jejunum as appropriate; with biopsy, single or multiple ICD9 Code(s): 531.90, Gastric ulcer, unspecified as acute or chronic, without mention of hemorrhage or perforation, without mention of obstruction 537.89, Other specified disorders of stomach and duodenum 280.9, Iron deficiency anemia, unspecified CPT Copyright 2010 [employer]. All Rights Reserved. The codes documented in this report are preliminary and upon dado operator review may be revised to meet [...] PATHOLOGY REP ORT HP CONVERSION Pathology #: [id number] ? Date Obtained: 11/13/2011 ?Date Received: 11/13/2011 [...] examination substantiates the diagnoses cited. CPT Codes: ?49303 x 2 ??30091 x 2 ? End of Report Specimen [...] unspecified documented in this encounter Care Teams Director Maternal Child Relationship Specialty Start Date End Date Shiraz Simeon PA-C PCP - General 11/02/11 03/01/16 [address] [place] [address] documented as of this encounter
--- OUTSIDE RECORDS SUMMARY | 2022-06-08 11:11 | XMS_ITS | Encounter Summary ---
:1945 Author Organization [facility] Address [address] [place] [address] Care Team Providers Name Role Phone Unassigned, Provider Primary Care Provider Unavailable Encounter Details Date Type Department Care Team Description 12/21/2010 Office Visit [facility] [address] [address] [place] [address] [phone] (Wo rk) Social History Tobacco Use Types [...] 1503 Note Time: 12/21/10 0001 Status: Signed Coarse Wire Drawer: Miya Gonzalez MD (Physician) NAME: RONDA CORBIN MR#: [id number] ACCT: [id number] VISIT: [id number] DICTATING CLINICIAN: Miya Gonzalez MD CONFIRM #: [id number] LOC: 520 CLINIC PROGRESS NOTE DATE OF [...] with the plan. KMM:CRYSTAL C: CONFIRM #: [id number] documented in this encounter Plan of Treatment Not on filedocumented as of this encounter Visit Diagnoses Not on filedocumented in this encounter Care Teams Chronic Specialist Relationship Specialty Start Date End Date Unassigned, Provider PCP - General 04/03/00 10/31/[address] [place] [address] documented as of this encounter
--- OUTSIDE RECORDS SUMMARY | 2022-06-08 11:11 | XMS_ITS | Encounter Summary ---
:1945 Author Organization [facility] Address [address] [place] [address] Care Team Providers Name Role Phone Unassigned, Provider Primary Care Provider Unavailable Encounter Details Date Type Department Care Team Description 02/22/2004 Orders Only External to HP Unknown, Physici an [address] [place] [address] (Wo rk) Social History Tobacco [...] from the Results sect ion by A [employer] System Scan Conversion [[id number]] on 06/14/2010 at 8:46 PM (File: [id number];[id number];) Transcriptions Unknown, Physician - 02/22/2004 12:00 AM CDT Physician Unknown RAD_1 documented in this encounter Visit Diagnoses Not on filedocumented in this encounter Care Teams Set Up Technician Relationship Specialty Start Date End Date Unassigned, Provider PCP - General 04/03/00 10/31/[address] [place] [address] documented as of this encounter
--- OUTSIDE RECORDS SUMMARY | 2022-06-08 11:11 | XMS_ITS | Encounter Summary ---
:1945 Author Organization [employer] Address [address] [place] [address] Care Team Providers Name Role Phone Shiraz Simeon PA-C Primary Care Provider Reason for Visit Reason Comments Critical Lab Result Encounter Details Date Type Department Care Team Description 11/08/2011 Telephone Specialty Center [address] Vicky Rich MD Critical Lab Result Gastroenterology [address] [place] [address] [phone] Social History Tobacco Use Types Packs/Day Years [...] on filedocumented in this encounter Care Teams Oracle Database Architect Relationship Specialty Start Date End Date Shiraz Simeon PA-C PCP - General 11/02/11 03/01/[address] [place] [id number] documented as of this encounter
--- OUTSIDE RECORDS SUMMARY | 2022-06-08 11:11 | XMS_ITS | Encounter Summary ---
:1945 Author Organization [facility] Address [address] [place] [address] Care Team Providers Name Role Phone Shiraz Simeon PA-C Primary Care Provider Encounter Details Date Type Department Care Team Description 11/08/2011 Lab Visit [facility] Anemia [address] [facility] [address] Social History Tobacco Use Types [...] of 7.7 to EDWARD Lui, 11/08/2011,11:18, by [facility] Vicky Rich MD LAB_1 Performing Organization Address City/State/ZIP Code Phon e Number HP CONVERSION documented in this encounter Visit Diagnoses Diagnosis Anemia Anemia, unspecified documented in this encounter Care Teams Clinical Operations Leader Relationship Specialty Start Date End Date Shiraz Simeon PA-C PCP - General 11/02/11 03/01/16 [address] [place], [place] [address] documented as of this encounter
--- OUTSIDE RECORDS SUMMARY | 2022-06-08 11:11 | XMS_ITS | Encounter Summary ---
:1945 Author Organization [facility] Address [address] [place] [address] Care Team Providers Name Role Phone Unassigned, [...] on filedocumented in this encounter Care Teams Assurance Sourcing Manager Relationship Specialty Start Date End Date Unassigned, Provider PCP - General 04/03/00 10/31/11 [address] [place] [address] documented as of this encounter
--- OUTSIDE RECORDS SUMMARY | 2022-06-08 11:11 | XMS_ITS | Encounter Summary ---
:1945 Author Organization [employer] Address [address] [place] [address] Care Team Providers Name Role Phone Shiraz Simeon PA-C Primary Care Provider Reason for Visit Reason Comments RESULTS, TEST Encounter Details Date Type Department Care Team Description 11/16/2011 Office Visit [facility]va Mccarty e Shiraz Simeon, Restless legs syndrome (RLS) (Primary Dx); [address] PA-C Chronic back pain; [place] [address] [address] NSAID-induced gastric ulcer; [phone] [place] [address] Iron deficiency anemia Social History Tobacco Use [...] Note - Shiraz Simeon PA-C - 11/16/2011 2:15 PM CDT Started [...] unspecified documented in this encounter Care Teams Onsite Case Manager Relationship Specialty Start Date End Date Shiraz Simeon PA-C PCP - General 11/02/11 03/01/16 [address] [place] [address] documented as of this encounter
--- OUTSIDE RECORDS SUMMARY | 2022-06-08 11:11 | XMS_ITS | Encounter Summary ---
:1945 Author Organization [employer] Address [address] [place] [address] Care Team Providers Name Role Phone Nette Simeon PA-C Primary Care Provider Encounter Details Date Type Department Care Team Description 11/02/2011 Lab Visit [facility] Restless legs syndrome (RLS) ; [address] Heart palpitations; [place] [address] Malaise and fatigue; [phone] Generalized anx iety disorder Social History Tobacco [...] Component Value Ref Test Analysis Performed At [facility] gist Range Method Time Signature Absolute 10.1 [...] 15.8 and HGB of 4.7 to EDWARD RIHCARD,.11/02/2011,15:34, by [facility].Critical HCT 15.8 called,read b ack by natalie VerdugoanFamMkenyon,.11/02/2011,10:34, by TRUGL Nette Simeon PA-C LAB_1 Performing Organization Address [facility] Code Phon e Number HP CONVERSION [...] Nette Simeon PA-C LAB_1 Performing Organization Address [facility] Phon e Number HP CONVERSION (ABNORMAL) ESR (11/02/2011 9:46 AM CDT) [facility] gist Method Time Signature Sedimentation Rate 73 (H) 0 - 20 HP CONVERSI ON mm/hr Specimen Anatomical Collection Method Collection Time Receive d Time (Source) Location / / Volume Laterality 11/02/2011 9:46 AM 2 9:46 CDT AM CDT Narrative HP CONVERSION - 11/02/2011 10:36 AM CDT Performed at [facility], [address] [place] [address] .Critical HCT 15.8 called,read back by natalie Verdugoa [facility]amMed,.11/02/2011,10:34, by TRUGL Nette Simeon PA-C LAB_1 Performing Organization Address [facility] Phon e Number HP CONVERSION AST (11/02/2011 9:46 AM CDT) [facility] gist Method Time Signature Aspartate 17 0 - 45 HP CONVERSION Aminotransferase U/L Specimen Anatomical Collection Method Collection Time Receive d Time (Source) Location / / Volume Laterality 11/02/2011 9:46 AM 2 CDT 12:11 PM CDT Narrative HP CONVERSION - 11/02/2011 3:23 PM CDT Performed at [facility], [address] [place] [address] .Critical HCT 15.8 called,read back by natalie Thomas,.11/02/2011,10:34, by TRUGL Nette Simeon PA-C LAB_1 Performing Organization Address [facility]/ZIP Code Phon e Number HP CONVERSION ALT (SGPT) (11/02/2011 9:46 AM CDT) [facility] gist Method Time Signature Alanine 9 4 - 55 HP CONVERSION Aminotransferase U/L Specimen Anatomical Collection Method Collection Time Receive d Time (Source) Location / / Volume Laterality 11/02/2011 9:46 AM 2 CDT 12:11 PM CDT Narrative HP CONVERSION - 11/02/2011 3:23 PM CDT Performed at [facility], [address] [place] [address] .Critical HCT 15.8 called,read back by natalie Thomas,.11/02/2011,10:34, by TRUGL Nette Simeon PA-C LAB_1 Performing Organization Address City/[facility] Phon e Number HP CONVERSION Creatinine [...] - 11/02/2011 3:23 PM CDT Performed at [facility], [address] [place] [address] .Critical HCT 15.8 called,read back by natalie Thomas,.11/02/2011,10:34, by TRUGL Nette Simeon PA-C LAB_1 Performing Organization Address [facility] Phon e Number HP CONVERSION BUN (11/02/2011 9:46 AM CDT) athologist Signature Blood Urea 20 5 - 26 HP CONVERSION Nitrogen mg/dL Specimen Anatomical Collection Method Collection Time Receive d Time (Source) Location / / Volume Laterality 11/02/2011 9:46 AM 2 CDT 12:11 PM CDT Narrative HP CONVERSION - 11/02/2011 3:23 PM CDT Performed at [facility], [address] [place] [address] .Critical HCT 15.8 called,read back by natalie Thomas,.11/02/2011,10:34, by TRUGL Nette Simeon PA-C LAB_1 Performing Organization Address [facility] Phon e Number HP CONVERSION Calcium (11/02/2011 9:46 AM CDT) athologist Signature Calcium 9.3 8.5 - 10.5 HP CONVERSION mg/dL Specimen Anatomical Collection Method Collection Time Receive d Time (Source) Location / / Volume Laterality 11/02/2011 9:46 AM 2 CDT 12:11 PM CDT Narrative HP CONVERSION - 11/02/2011 3:23 PM CDT Performed at [facility], [address] [place] [address] .Critical HCT 15.8 called,read back by natalie Thomas,.11/02/2011,10:34, by TRUGL Nette Simeon PA-C LAB_1 Performing Organization Address [facility] Phon e Number HP CONVERSION TSH AND [...] Nette Simeon PA-C LAB_1 Performing Organization Address [facility] Phon e Number HP CONVERSION (ABNORMAL) Hemogram/Plts/Diff (11/02/2011 9:46 AM CDT) [facility] gist Method Time Signature White Blood 12.8 [...] - 11/02/2011 3:23 PM CDT Performed at [facility], [address] [place] [address], [place] [address] .called critical HCT of 15.8 and HGB of 4.7 to EDWARD RICHARD,.11/02/2011,15:34, by ELENA.Critical HCT 15.8 called,read back by natalie Verdugo,.11/02/2011,10:34, by DIANA Nette Simeon PA-C LAB_1 Performing Organization Address [facility]/State/ZIP Code Phon e Number HP CONVERSION URINALYSIS ROUTINE, MICRO/CULTURE IF POS (11/02/2011 9:45 AM CDT) [facility] Method Time Signature Urine Type Urine:clean HP [...] U Specific 1.025 1.005 - HP CONVERSION [place] 1.030 Urobilinogen Negative Negative HP CONVERSION Urine Eu/dL Specimen Anatomical Collection Method Collection Time Receive d Time (Source) Location / / Volume Laterality Urine: 11/02/2011 9:45 AM 2 9:45 CDT AM CDT Narrative HP CONVERSION - 11/02/2011 10:33 AM CDT Performed at [facility], [address] [place] [address] [place] [address] .Critical HCT 15.8 called,read back by natalie Verdugo [facility]am[employer],.11/02/2011,10:34, by DIANA Nette Simeon PA-C LAB_1 Performing Organization Address City/State/ZIP Code Phon e Number HP CONVERSION documented in this encounter Visit Diagnoses Diagnosis Restless legs syndrome (RLS) Heart palpitations Palpitations Malaise and fatigue Other malaise and fatigue Generalized anxiety disorder (HRC) Generalized anxiety disorder documented in this encounter Care Teams Scorekeeper Relationship Specialty Start Date End Date Nette Simeon PA-C PCP - General 11/02/11 03/01/[address] [place] [address] [place] [address] documented as of this encounter
--- OUTSIDE RECORDS SUMMARY | 2022-06-08 11:11 | XMS_ITS | Encounter Summary ---
:1945 Author Organization [employer] Address [address] [place] [address] Care Team Providers Name Role Phone Shiraz Simeon PA-C Primary Care Provider Reason for Visit Reason Comments GAS, EXCESSIVE Encounter Details Date Type Department Care Team Description 01/01/2012 Telephone [facility] Medicin e Shiraz Simeon PA-C GAS, EXCESSIVE [address] [place] [address] [place] [address] [phone] (Wo rk) Social History Tobacco Use Types [...] if she feels worse today. ET Loreta Parsons - 01/01/2012 9:13 AM CDT She feels awful, achy, gassy etc. Needs advice. [phone] documented in this encounter Plan of Treatment Not on filedocumented as of this encounter Visit Diagnoses Not on filedocumented in this encounter Care Teams Ecosystem Ecology Professor Relationship Specialty Start Date End Date Shiraz Simeon PA-C PCP - General 11/02/11 03/01/16 [address] [place] [address] documented as of this encounter
--- OUTSIDE RECORDS SUMMARY | 2022-06-08 11:11 | XMS_ITS | Encounter Summary ---
:1945 Author Organization [employer] Address [address], [place] [address] Care Team Providers Name Role Phone Shiraz Simeon PA-C Primary Care Provider Encounter Details Date Type Department Care Team Description 11/08/2011 Hospital Encounter [facility] 650 0 Endoscopy Anemia [address] [place], [place] [address] Social History Tobacco Use Types Packs/Day Years [...] 11/08/11 1100 Note Time: 11/08/11924 Status: Signed Single Needle Operator: Vicky Rich MD (Physician) Patient Name: Srhuti Corbin Gender: Anne Procedure Date: 11/08/2011 09:25:00 [...] and oxygen saturations were monitored continuously. The CF-[id number]-6 colonoscope was introduced through the anus and [...] scheduled. - Start iron replacement. CPT4 Code(s): 99703, Colonoscopy, flexible, proximal to splenic flexure; diagnostic, with or without collection of specimen(s) by brushing or washing, with or without colon decompression (separate procedure) ICD9 Code(s): 285.9, Anemia, unspecified CPT Copyright 2010 [employer]. All Rights Reserved. The codes documented in this report are preliminary and upon grain merchandiser review may be revised to meet current [...] unspecified documented in this encounter Care Teams Field Artillery Operations Specialist Relationship Specialty Start Date End Date Shiraz Simeon PA-C PCP - General 11/02/11 03/01/16 [address] [place] [address] documented as of this encounter
--- OUTSIDE RECORDS SUMMARY | 2022-06-08 11:11 | XMS_ITS | Encounter Summary ---
:1945 Author Organization [employer] Address [address] [place] [address] Care Team Providers Name Role Phone Shiraz Simeon PA-C Primary Care Provider Encounter Details Date Type Department Care Team Description 02/05/2012 Lab Visit [facility] Iron deficiency anemia [address] [place], [place] [id number] Social History Tobacco Use Types Packs/Day Years [...] pt contacted and will come in at [id number] for transfusion. Orders faxed, sorting supervisor notified.Dr. Coreas: pt states she has [...] Last transfusion was on 11/06/11. Please advise. E MAKER documented in this encounter Plan of Treatment [...] - 02/05/2012 5:25 PM CDT Performed at [facility], [address] [place] [id number] Transcriptions 08/11/2016 3:55 PM CSTNotes Recorded by [...] at approximately 1500 for transfusion. Orders faxed, sorting supervisor notified. Dr. Coreas: pt states she [...] unspecified documented in this encounter Care Teams Supply Chain Director Relationship Specialty Start Date End Date Shiraz Simeon PA-C PCP - General 11/02/11 03/01/16 [address] [place], [place] [address] documented as of this encounter
--- OUTSIDE RECORDS SUMMARY | 2022-06-08 11:11 | XMS_ITS | Encounter Summary ---
:1945 Author Organization [employer] Address [address] [place] [address] Care Team Providers Name Role Phone Shiraz Simeon PA-C Primary Care Provider Encounter Details Date Type Department Care Team Description 11/16/2011 Lab Visit [facility] Iron deficiency anemia [address] [place] [id number] Social History Tobacco Use Types Packs/Day Years [...] TRANSGLUTAMINASE AB IGA (11/16/2011 2:07 PM CDT) [facility] Method Time Signature Tissue 8 0 [...] - 11/18/2011 2:24 PM CDT Performed at [facility] [address] [place] [address] Shiraz Simeon PA-C LAB_1 Performing Organization Address City/[facility] Phon e Number HP CONVERSION (ABNORMAL) Hemoglobin, Blood (11/16/2011 2:07 PM CDT) P athologist Signature Hemoglobin 8.5 (L) 11.8 - 15.5 HP CONVERSION g/dL Specimen Anatomical Collection Method Collection Time Receive d Time (Source) Location / / Volume Laterality 11/16/2011 2:07 PM 2 2:07 CDT PM CDT Narrative HP CONVERSION - 11/16/2011 2:28 PM CDT Performed at [facility], [address] [place] [address] [place] [address] Shiraz Simeon PA-C LAB_1 Performing Organization Address City/[facility] Phon e Number HP CONVERSION documented in this encounter Visit Diagnoses Diagnosis Iron deficiency anemia Iron deficiency anemia, unspecified documented in this encounter Care Teams Apron Trimmer Relationship Specialty Start Date End Date Shiraz Simeon PA-C PCP - General 11/02/11 03/01/[address] [facility] [place] [address] [phone] documented as of this encounter
--- OUTSIDE RECORDS SUMMARY | 2022-06-08 11:11 | XMS_ITS | Encounter Summary ---
:1945 Author Organization [employer] Address [address] [place] [address] Care Team Providers Name Role Phone Shiraz Simeon PA-C Primary Care Provider Reason for Visit Reason Comments RESULTS, TEST Encounter Details Date Type Department Care Team Description 11/17/2011 Telephone [facility] Shiraz Simeon PA-C RESULTS, TEST [address] [place] [address] [place] [address] [phone] (Wo rk) Social History Tobacco Use Types [...] pt with abnormal hgb Shruti Corbin (Self) [phone] (H) Lab Results Component Value Date/Time Hemoglobin 8.5* 11/16/2011 14:07 Marline Ramirez - 11/17/2011 3:34 PM CDT Pt would like to know what her Hemoglobin results were from Yesterday. documented in this encounter Plan of Treatment Not on filedocumented as of this encounter Visit Diagnoses Not on filedocumented in this encounter Care Teams Clinical Assessment Manager Relationship Specialty Start Date End Date Shiraz Simeon PA-C PCP - General 11/02/11 03/01/16 [address] [place], [place] [id number] documented as of this encounter
--- OUTSIDE RECORDS SUMMARY | 2022-06-08 11:11 | XMS_ITS | Encounter Summary ---
:1945 Author Organization [employer] Address [address] [place] [address] Care Team Providers Name Role Phone Shiraz Simeon PA-C Primary Care Provider Reason for Visit Reason Comments Appt. Needed Encounter Details Date Type Department Care Team Description 01/12/2012 [facility] [facility] [address] Clemente MD Appt. Needed Endoscopy [address] [place] [address] [place], [place] [address] [phone] Social History Tobacco Use Types Packs/Day Years [...] obstruction documented in this encounter Care Teams Cork Wirer Relationship Specialty Start Date End Date Shiraz Simeon PA-C PCP - General 11/02/11 03/01/16 [address] [place] [address] documented as of this encounter
--- OUTSIDE RECORDS SUMMARY | 2022-06-08 11:11 | XMS_ITS | Encounter Summary ---
:1945 Author Organization [employer] Address [address] [place] [address] Care Team Providers Name Role Phone Shiraz Simeon PA-C Primary Care Provider Encounter Details Date Type Department Care Team Description 11/02/2011 Notes/Orders [facility] [address] Rich MD Endoscopy [address] [place] [address] [place] [address] [phone] Social History Tobacco Use Types Packs/Day Years Used Date Smoking Tobacco: Never Assessed Sex Assigned at Date Recorded Not on file documented as of this encounter Plan of Treatment Not on filedocumented as of this encounter Visit Diagnoses Not on filedocumented in this encounter Care Teams Senior Financial Reporting Analyst Relationship Specialty Start Date End Date Shiraz Simeon PA-C PCP - General 11/02/11 03/01/[address] [place] [id number] documented as of this encounter
--- OUTSIDE RECORDS SUMMARY | 2022-06-08 11:11 | XMS_ITS | Encounter Summary ---
:1945 Author Organization [employer] Address [address] [place] [address] Care Team Providers Name Role Phone Shiraz Simeon PA-C Primary Care Provider Encounter Details Date Type Department Care Team Description 11/03/2011 Hospital Encounter [facility] 650 0 Endoscopy Canceled [address] [place], [place] [id number] Social History Tobacco Use Types Packs/Day Years [...] on filedocumented in this encounter Care Teams Metal Fabricating Inspector Relationship Specialty Start Date End Date Shiraz Simeon PA-C PCP - General 11/02/11 03/01/16 [address] [place] [address] documented as of this encounter
--- OUTSIDE RECORDS SUMMARY | 2022-06-08 11:11 | XMS_ITS | Encounter Summary ---
:1945 Author Organization [employer] Address [address] [place] [address] Care Team Providers Name Role Phone Shiraz Simeon PA-C Primary Care Provider Reason for Visit Reason Comments Appt. Needed Encounter Details Date Type Department Care Team Description 01/29/2012 Telephone [facility] [address] Clemente MD Appt. Needed Endoscopy [address] [place] [address] [place], [place] [address] [phone] Social History Tobacco Use Types Packs/Day Years [...] filedocumented in this encounter Care Teams Waste Transportation Technician Relationship Specialty Start Date End Date Shiraz Simeon PA-C PCP - General 11/02/11 03/01/[address] [place] [id number] documented as of this encounter
--- OUTSIDE RECORDS SUMMARY | 2022-06-08 11:11 | XMS_ITS | Encounter Summary ---
:1945 Author Organization [employer] Address [address] [place] [address] Care Team Providers Name Role Phone Shiraz Simeon PA-C Primary Care Provider Reason for Visit Reason Comments ANXIETY Encounter Details Date Type Department Care Team Description 11/02/2011 Office Visit [facility] Shiraz Simeon, Generalized anxiety disorder (Primary Dx); [address] PA-C Restless legs syndrome (RLS); [place] [address] Heart palpitations; [phone] [place] [address] Malaise and fatigue Social History Tobacco Use Types Packs/Day Years Used Date Smoking Tobacco: Never Assessed Sex Assigned at Date Recorded Not on file documented as of this encounter Last Filed Vital Signs Vital Sign Reading Time Taken Comments Blood Pressure 98/56 11/02/2011 9:07 AM CDT Pulse 96 11/02/2011 9:07 AM CDT Temperature - - Respiratory Rate - - Oxygen Saturation - - Inhaled Oxygen Concentration - - Weight 45.8 kg (101 lb) 11/02/2011 9:07 AM CDT Height - - Body Mass Index - - documented in this encounter Progress Notes Shiraz Simeon PA-C - 12/28/2011 12:53 PM CDT SUBJECTIVE: This 66 y.o. female presents today with the following concern(s): Increasing anxiety, decreased ability to sleep, increased restless leg syndrome symptoms in the right leg, tingling in the legs. Feels tired, she has assumed, due to not sleeping well. Feels jittery. Always on the go. In thepast, has been treated for anxiety with BuSpar and alprazolam. Tells me that her daughter, for some reason, is very concerned about her health, keeps telling her she needs to go to the doctor, afraid she has cancer. Shruti not really able to express to me why her daughter has been concerned. Shruti saw one of our providers in 2010, but otherwise, states she hasn't been to the doctor since her last recorded visit at [facility], which was in 1998. Past Medical History: Restless Leg Syndrome Anxiety Surgeries: [id number]-[id number] after a mildly abnormal pap, patient requested. Adverse Drug Reactions: has no known allergies. Medications: currently has no medications in their medication list. Tobacco History: reports that she has been smoking. She does not have any smokeless tobacco history on file. Alcohol History: reports that she does not drink alcohol. Marital History: , safe relationship. has 2 adult children. 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 Review of Systems: complete review of systems is reviewed and negative except for what is noted above. OBJECTIVE: Vital Signs: BP 98/56 Pulse 96 Wt 101 lb (45.813 kg) General appearance: alert, cooperative, no distress, appears stated age, Ashen, almost padilla she is so pale. Appears ill, but not toxic. Breathing comfortably, does not appear unstable. Thoughts are coherent., Eyes: conjunctivae/corneas clear. PERRL, EOM's intact. Fundi benign, Ears: normal TM's and external ear canals AU, Throat: lips, mucosa, and tongue normal; teeth and gums normal, [...] edema, Pulses: 2+ and symmetric, Skin: Skin texture, turgor normal. No rashes or lesions and Lymph nodes: Cervical, supraclavicular, and axillary nodes normal. ASSESSMENT/PLAN: Shruti was seen today for anxiety. Diagnoses and associated orders for this visit: Generalized anxiety disorder - sertraline (ZOLOFT) 50 mg tablet; Take 1 tablet by mouth daily (every 24 hours). Take 1/2 tab daily x 6 days, then 1 tab daily thereafter. - Calcium; Future Restless legs syndrome (rls) - pramipexole (MIRAPEX) 0.25 mg tablet; Take as instructed. 1 tab at bedtime, may increase by 1 tab every 4-5 days as needed for symptom control. - Complete Blood Count W/Diff; Future Heart palpitations - Complete Blood Count W/Diff; Future - TSH And Free T4 (FRT4 If TSH Abnorm); Future - ECG 12 Lead Outpatient Malaise and fatigue - Complete Blood Count W/Diff; Future - TSH And Free T4 (FRT4 If TSH Abnorm); Future - BUN; Future - Creatinine; Future - UA with Hold for Culture (CLINIC); Future - Alanine Aminotransferase; Future - Aspartate Aminotransferase; Future - Sedimentation Rate; Future - C Reactive Protein; Future Discussed the purpose of sertraline, how to take it, potential benefits, when she might start feeling clinical benefits, and potential adverse effects. Medication check in 3-4 weeks. Discussed the purpose of the mirapex, how to start it, how to gradually titrate to efficacy as needed, potential benefits, and potential adverse effects. Discussed my concern given her pallor, so above labs will be done and she will be notified with lab results as soon as available. The patient was discharged ambulatory and in stable condition. *SH~DNS~SOAP documented in this encounter Plan of Treatment Not on filedocumented as of this encounter Procedures Procedure Name Priority Date/Time Associated Diagnosis Comme nts ECG 12 LEAD Routine 11/03/2011 9:15 AM Heart palpitations Res ults for this OUTPATIENT CDT procedure are i n the results section. documented in this encounter Results ECG 12 Lead Outpatient (11/03/2011 9:15 AM CDT) P athologist Signature Ventricular Rate 92 BPM [facility] Atrial Rate 92 BPM [facility] P-R Interval 134 ms [facility] QRS Duration 90 ms [facility] QT 354 ms [facility] QTc 437 ms [facility] P [place] 70 degrees [facility] R [place] 75 degrees [facility] T [place] 39 degrees [facility] Specimen (Source) Anatomical Collection Method Collection Time Re ceived Time Location / / Volume Laterality 11/03/2011 9:15 AM CDT Narrative [facility] - 10/07/2019 8:37 AM CDT Sinus rhythm Normal ECG No previous ECGs available Procedure Note Epic, Internal Processing - 10/11/2019Fo rmatting of this note might be different from the original. Sinus rhythm Normal ECG No previous ECGs available Shiraz Simeon PA-C PN ECG ORDERABLES Performing Organization Address City/State/ZIP Code Phon e Number [facility] [address] [place] [address] documented in this encounter Visit Diagnoses Diagnosis Generalized anxiety disorder (HRC) - [facility] Generalized anxiety disorder Restless legs syndrome (RLS) Heart palpitations Palpitations Malaise and fatigue Other malaise and fatigue documented in this encounter Care Teams Oil Field Tester Relationship Specialty Start Date End Date Shiraz Simeon PA-C PCP - General 11/02/11 03/01/[address] [id number] documented as of this encounter
--- OUTSIDE RECORDS SUMMARY | 2022-06-08 11:11 | XMS_ITS | Encounter Summary ---
:1945 Author Organization [employer] Address [address] [place] [address] Care Team Providers Name Role Phone Shiraz Simeon PA-C Primary Care Provider Reason for Visit Reason Comments Critical Lab Result Encounter Details Date Type Department Care Team Description 11/02/2011 Telephone [facility] Shiraz Simeon PA-C Critical Lab Result [address] [place] [address] [place] [address] [phone] (Wo rk) Social History Tobacco Use Types [...] scope scheduling. Advised about omeprazole, she will poultry picker the prescription and get started on that. [...] AM CDT Critical hemacrit of 15.8 per [facility]. Dalia calling. documented in this encounter Plan of Treatment Not on filedocumented as of this encounter Visit Diagnoses Diagnosis Anemia - Primary Anemia, unspecified documented in this encounter Care Teams Director Medical Writing Relationship Specialty Start Date End Date Shiraz Simeon PA-C PCP - General 11/02/11 03/01/[address] [place] [id number] documented as of this encounter
--- OUTSIDE RECORDS SUMMARY | 2022-06-08 11:11 | XMS_ITS | Encounter Summary ---
:1945 Author Organization [employer] Address [address] [place] [address] Care Team Providers Name Role Phone Shiraz Simeon PA-C Primary Care Provider Reason for Visit Reason Comments RESULTS, TEST Encounter Details Date Type Department Care Team Description 02/05/2012 Telephone [facility] Shiraz Simeon PA-C RESULTS, TEST [address] [place] [address] [place] [address] [phone] (Wo rk) Social History Tobacco Use Types [...] Additional Info: Patient calling for Hgb result. Toucher Up ordered today. Will forward to oncology /hematology. [...] on filedocumented in this encounter Care Teams Mobile Mechanic Relationship Specialty Start Date End Date Shiraz Simeon PA-C PCP - General 11/02/11 03/01/16 [address] [place] [address] documented as of this encounter
--- OUTSIDE RECORDS SUMMARY | 2022-06-08 11:11 | XMS_ITS | Encounter Summary ---
:1945 Author Organization [email or web address] Address [address] [place] [address] Care Team Providers Name Role Phone Shiraz Simeon PA-C Primary Care Provider Reason for Visit Reason Comments Return Call Encounter Details Date Type Department Care Team Description 11/15/2011 Telephone [facility] Shiraz Simeon PA-C Return Call [address] [place] [address] [place] [address] [phone] (Wo rk) Social History Tobacco Use Types [...] the doctor. Please call the Pt (Shruti) [phone]. Okay to leave a message. Gloria Umanzor [...] on filedocumented in this encounter Care Teams Credit Front Office Developer Relationship Specialty Start Date End Date Shiraz Simeon PA-C PCP - General 11/02/11 03/01/[address] [place] [address] documented as of this encounter
--- OUTSIDE RECORDS SUMMARY | 2022-06-08 11:11 | XMS_ITS | Encounter Summary ---
:1945 Author [email or web address] Address [address] [address] Care Team Providers Name Role Phone Unassigned, Provider Primary Care Provider Unavailable Encounter Details Date Type Department Care Team Description 07/26/2004 Emergency Room External to External, [facility]id [facility] [place] [address] Social History Tobacco Use Types Packs/Day Years Used Date Smoking Tobacco: Never Assessed Sex Assigned at Date Recorded Not on file documented as of this encounter Progress Notes External, Provider - 07/26/2004 12:00 AM ED TECH documented in this encounter Plan of Treatment Not on filedocumented as of this encounter Visit Diagnoses Not on filedocumented in this encounter Care Teams Email Marketing Manager Relationship Specialty Start Date End Date Unassigned, Provider PCP - General 04/03/00 10/31/[address] [place] [address] documented as of this encounter
--- OUTSIDE RECORDS SUMMARY | 2022-06-08 11:11 | XMS_ITS | Encounter Summary ---
:1945 Author Organization [employer] Address [address] [place] [address] Care Team Providers Name Role Phone Shiraz Simeon PA-C Primary Care Provider Reason for Visit Reason Comments Transfusion Encounter Details Date Type Department Care Team Description 11/06/2011 Hospital Encounter [facility] [address] [place], [place] [address] Social History Tobacco Use Types Packs/Day Years [...] documented as of this encounter Progress Notes Makr Spears RN - 11/06/2011 5:00 PM CDT [...] PN BLOOD BANK ORDERS Performing Organization Address [facility] Phon e Number HP CONVERSION PREP RBC LEUKOREDUCED (11/06/2011 1:10 PM CDT) Patholo gist Method Time Signature BBproduct RBC, LR HP CONVERSION BBunitnumber [id number] HP CONVERSION BBdispense transfused HP CONVERSION BBcoding ISBT HP CONVERSION BBproduct RBC, LR HP CONVERSION BBunitnumber [id number] HP CONVERSION BBdispense transfused HP CONVERSION BBcoding ISBT HP CONVERSION Comment: RBC, LR ? [id number] ?transfused ?? 11/06/11 ??14:09 RBC, LR ? [id number] ?transfused ?? 11/06/11 ??15:33 Specimen (Source) Anatomical Collection Method Collection Time Re ceived Time Location / / Volume Laterality 11/06/2011 1:10 PM CDT Shiraz Simeon PA-C PN BLOOD BANK ORDERS Performing Organization Address [facility] Phon e Number HP CONVERSION documented in this encounter Visit Diagnoses Not on filedocumented in this encounter Care Teams Flexo Operator Relationship Specialty Start Date End Date Shiraz Simeon PA-C PCP - General 11/02/11 03/01/16 [address] [place] [address] documented as of this encounter
--- OUTSIDE RECORDS SUMMARY | 2022-06-08 11:11 | XMS_ITS | Encounter Summary ---
:1945 Author Organization [employer] Address [address] [address] Care Team Providers Name Role Phone Shiraz Simeon PA-C Primary Care Provider Encounter Details Date Type Department Care Team Description 01/10/2012 Hospital Encounter [facility]ty [facility] 650 0 Endoscopy [address] [facility] [place] [address] Social History Tobacco Use Types Packs/Day Years [...] 01/10/12 1059 Note Time: 01/10/12939 Status: Signed Caustic Preparer: Tyler Clemente MD (Physician) Patient Name: Shruti [...] NSAIDs/aspirin. - Await pathology results. CPT4 Code(s): 19647, Upper gastrointestinal endoscopy including esophagus, stomach, and [...] without mention of obstruction CPT Copyright 2010 [employer]. All Rights Reserved. The codes documented in this report are preliminary and upon dialysis social worker review may be revised to meet current [...] PATHOLOGY REP ORT HP CONVERSION Pathology #: [id number] ? Date Obtained: 01/10/2012 ?Date Received: 01/10/2012 [...] greatest dimension. ?? Entirely submitted in cassette [id number]. ? WEYAL MICROSCOPIC DESCRIPTION: Microscopic examination performed. CPT Codes: ?11788 x 1 ??35638 x 2 ? End of Report Specimen Anatomical Collection Method Collection Time Receive d Time (Source) Location / / Volume Laterality STOMACH STRUCTURE 01/10/2012 7:00 AM 12/30 7:00 / Unknown CDT AM CDT Tyler Clemente MD LAB_1 Performing Organization Address City/State/ZIP Code Phon e Number HP CONVERSION documented in this encounter Visit Diagnoses Not on filedocumented in this encounter Care Teams Diesel Roller Operator Relationship Specialty Start Date End Date Shiraz Simeon PA-C PCP - General 11/02/11 03/01/16 [address] [place] [address] documented as of this encounter
--- OUTSIDE RECORDS SUMMARY | 2022-06-08 11:11 | XMS_ITS | Encounter Summary ---
:1945 Author Organization [facility] Address [address], [place] [address] Care Team Providers Name Role Phone Unassigned, Provider Primary Care Provider Unavailable Encounter Details Date Type Department Care Team Description 12/21/2010 PN Conversion Only [address] [address] [place] [address] Social History Tobacco Use Types Packs/Day Years Used Date Smoking Tobacco: Never Assessed Sex Assigned at Date Recorded Not on file documented as of this encounter Plan of Treatment Not on filedocumented as of this encounter Visit Diagnoses Not on filedocumented in this encounter Care Teams Hand Driller Relationship Specialty Start Date End Date Unassigned, Provider PCP - General 04/03/00 10/31/[address] [place] [address] documented as of this encounter
--- OUTSIDE RECORDS SUMMARY | 2022-06-08 11:11 | XMS_ITS | Encounter Summary ---
:1945 Author Organization [facility] Address [address] [place] [address] Care Team Providers Name Role Phone Shiraz Simeon PA-C Primary Care Provider Reason for Visit Reason Comments CONSULT Encounter Details Date Type Department Care Team Description 01/04/2012 [facility] [address] [place], [place] [address] Social History Tobacco Use Types Packs/Day Years [...] 01/04/2012 11:59 PM CDT Shruti Corbin MR#: [id number] : 1945 CLINIC CONSULTATION NOTE DATE OF [...] health until 08/2011. She had driven from [place] to [place] to attend her daughter's wedding. She felt ill during the drive and was having increasing diarrhea and gas with poor appetite. She did not feel her stool was black or bloody. When she returned to the [facility], she felt improved until early Oct, 2011. [...] 11/02/2011 [cc: KENISHA Cisneros MD Hematology/Oncology Pager [phone] documented in this encounter Miscellaneous Notes Medication [...] documented in this encounter Care Teams Manager Rfid Relationship Specialty Start Date End Date Shiraz Simeon PA-C PCP - General 11/02/11 03/01/16 [address] [place] [address] documented as of this encounter
--- OUTSIDE RECORDS SUMMARY | 2022-06-08 11:11 | XMS_ITS | Encounter Summary ---
:1945 Author Organization [employer] Address [address] [place] [address] Care Team Providers Name Role Phone Shiraz Simeon PA-C Primary Care Provider Reason for Visit Reason Comments Follow-up Encounter Details Date Type Department Care Team Description 01/02/2012 Office Visit Jeri Britt, Iron deficiency anemia (Prim [place] Dx); [address] PA-C NSAID-induced gastric ulcer; [address] [place] [address] [address] Fatigue; [phone] [place] [address] Loss of appetite [phone] (Wo rk) Social History Tobacco Use Types [...] appointment with our oncology department by calling [phone]. documented in this encounter Progress Notes Jeri Taylor PA-C - 01/02/2012 12:57 PM CDT This office note has been dictated. Jeri Taylor PA-C - 01/02/2012 12:56 PM CDT Progress Notes signed by Jeri Taylor PA-C at 01/05/12 0752 Author: Jeri Taylor PA-C Service: (none) Author Type: Physician Two Way Radio Technician Filed: 01/05/12 0752 Note Time: 01/02/12 1256 Status: Signed Health Professor: Jeri Taylor PA-C (Physician Two Way Radio Technician) NAME: RONDA CORBIN MR#: [id number] CSN: [id number] AUTHENTICATING CLINICIAN: Jeri Taylor PA-C CONFIRM #: [id number] LOC: 1706 CLINIC PROGRESS NOTE DATE OF [...] visit from 11/02/2011 and 11/16/2011 with physician pharmacy assistant, Shiraz Simeon. Ronda wasdiscovered to have [...] have been answered. CYNTHIA:CRYSTAL C: CONFIRM #: [id number] documented in this encounter Plan of Treatment Not on filedocumented as of this encounter Visit Diagnoses Diagnosis Iron deficiency anemia - Primary Iron deficiency anemia, unspecified NSAID-induced gastric ulcer Gastric ulcer, unspecified as acute or c hronic, without mention of hemorrhage, perforation, or obstruction Fatigue Other malaise and fatigue Loss of appetite Anorexia documented in this encounter Care Teams 4Th Grade Teacher Relationship Specialty Start Date End Date Shiraz Simeon PA-C PCP - General 11/02/11 03/01/16 [address] [place] [address] documented as of this encounter
--- OUTSIDE RECORDS SUMMARY | 2022-06-08 11:11 | XMS_ITS | Encounter Summary ---
:1945 Author Organization [employer] Address [address] [place] [address] Care Team Providers Name Role Phone Shiraz Simeon PA-C Primary Care Provider Encounter Details Date Type Department Care Team Description 01/02/2012 Lab Visit [facility] Iron deficiency anemia [address] [place], [place] [id number] Social History Tobacco Use Types Packs/Day Years [...] to hematology for follow-up of abnormal labs. ING SAW OPERATOR Miscellaneous - 08/11/2016 4:46 PM CSTNotes Recorded by Jeri Taylor PA-C on 01/06/2012 at 2:02 PMReferred to hematology for follow-up of abnormal labs. ING SAW OPERATOR Miscellaneous - 08/11/2016 4:46 PM CSTNotes Recorded by Jeri Taylor PA-C on 01/06/2012 at 2:02 PMReferred to hematology for follow-up of abnormal labs. ING SAW OPERATOR Miscellaneous - 08/11/2016 4:46 PM CSTNotes Recorded by Jeri Taylor PA-C on 01/06/2012 at 2:02 PMReferred to hematology for follow-up of abnormal labs. ING SAW OPERATOR documented in this encounter Plan of [...] Results (ABNORMAL) Differential (01/02/2012 11:29 AM CDT) [facility] gist Method Time Signature Absolute 11.0 (H) [...] - 01/02/2012 11:54 AM CDT Performed at [facility], [address] [place] [address] Transcriptions 08/11/2016 4:46 PM CSTNotes Recorded by Jeri Taylor PA-C on 01/06/2012 at 2:02 PMReferred to hematology for follow-up of abnormal labs. Jeri Jean-Baptiste PA-C LAB_1 Performing Organization Address City/[facility] Code Phon e Number HP CONVERSION [...] Jeri Jean-Baptiste PA-C LAB_1 Performing Organization Address [facility] Phon e Number HP CONVERSION (ABNORMAL) Iron [...] PA-C LAB_1 Performing Organization Address City/[facility] Code Phon e Number HP CONVERSION (ABNORMAL) Hemogram/Plts/Diff (01/02/2012 11:29 AM CDT) [facility] gist Method Time Signature White Blood Cell [...] - 01/02/2012 11:54 AM CDT Performed at [facility], [address] [place] [address] [place] [address] Transcriptions 08/11/2016 4:46 PM CSTNotes Recorded by Jeri Taylor PA-C on 01/06/2012 at 2:02 PMReferred to hematology for follow-up of abnormal labs. Jeri Jean-Baptiste PA-C LAB_1 Performing Organization Address City/State/ZIP Code Phon e Number HP CONVERSION documented in this encounter Visit Diagnoses Diagnosis Iron deficiency anemia Iron deficiency anemia, unspecified documented in this encounter Care Teams Bottling Room Worker Relationship Specialty Start Date End Date Shiraz Simeon PA-C PCP - General 11/02/11 03/01/[address] [place] [address] [place] [address] documented as of this encounter
--- OUTSIDE RECORDS SUMMARY | 2022-06-08 11:11 | XMS_ITS | Encounter Summary ---
:1945 Author Organization [employer] Address [address] [place] [address] Care Team Providers Name Role Phone Shiraz Simeon PA-C Primary Care Provider Reason for Visit Reason Comments Critical Lab Result Encounter Details Date Type Department Care Team Description 11/02/2011 Telephone [facility] Shiraz Simeon PA-C Critical Lab Result [address] [place] [address] [place] [address] [phone] (Wo rk) Social History Tobacco Use Types [...] on filedocumented in this encounter Care Teams Batting Machine Operator Relationship Specialty Start Date End Date Shiraz Simeon PA-C PCP - General 11/02/11 03/01/16 [address] [place] [address] documented as of this encounter
--- OUTSIDE RECORDS SUMMARY | 2022-06-08 11:12 | XMS_ITS | Encounter Summary ---
:1945 Author Organization [facility] Address [address] [place] [address] Care Team Providers Name Role Phone Unassigned, Provider Primary Care Provider Unavailable Encounter Details Date Type Department Care Team Description 09/19/1991 PN Conversion Only JAINISM CONVERSION St holli Giang MD [address] [...] AM Res ults for this INTERFACE ORDER DRAFTER CIVIL ENGINEERING procedure ar e in the results section. documented in this encounter Results Conversion Default Interface Order (09/17/1991 8:34 AM DRAFTER CIVIL ENGINEERING) P athologist Signature PAP Smear See Detail No normal HP CONVERSION range Comment: VAGINAL SMEAR Specimen Adequacy: Satisfactory for int erpretation. Within normal limits. No Endocervical cells seen. Numerous bacteria present. Specimen (Source) Anatomical Collection Method Collection Time Re ceived Time Location / / Volume Laterality 09/17/1991 8:34 AM DRAFTER CIVIL ENGINEERING Anuel Giang MD LAB_1 Performing Organization Address City/State/ZIP Code Phon e Number HP CONVERSION documented in this encounter Visit Diagnoses Not on filedocumented in this encounter Care Teams Nuclear Weapons Specialist Relationship Specialty Start Date End Date Unassigned, Provider PCP - General 04/03/00 10/31/[address] [place] [address] documented as of this encounter
--- OUTSIDE RECORDS SUMMARY | 2022-06-08 11:12 | XMS_ITS | Encounter Summary ---
:1945 Author Organization [facility] Address [address] [address] Care Team Providers Name Role Phone Unassigned, Provider Primary Care Provider Unavailable Encounter Details Date Type Department Care Team Description 03/15/1994 PN Conversion Only FAITH CONVERSION St holli Giang MD [address] [...] on filedocumented in this encounter Care Teams Computer Scientist Relationship Specialty Start Date End Date Unassigned, Provider PCP - General 04/03/00 10/31/[address] [place] [address] documented as of this encounter
--- OUTSIDE RECORDS SUMMARY | 2022-06-08 11:12 | XMS_ITS | Encounter Summary ---
:1945 Author Organization [employer] Address [address] [address] Care Team Providers Name Role Phone Unassigned, Provider Primary Care Provider Unavailable Encounter Details Date Type Department Care Team Description 06/17/1999 PN Conversion Only [place] [facility] Hector Giang MD [facility] [address] [facility] [address] [place] [address] [place] [address] [phone] Social History Tobacco Use Types Packs/Day Years Used Date Smoking Tobacco: Never Assessed Sex Assigned at Date Recorded Not on file documented as of this encounter Progress Notes Anuel Giang MD - 06/17/1999 12:01 AM CST Progress Notes signed by at 06/20/99 2525 Author: Anuel Giang MD Service: (none) Author Type: (none) Filed: 10/19/10 1437 Note Time: 06/17/99 0001 Status: Signed Grain Sacker: Imr Conversion IMPRESSION: Upper respiratory infection. Tobacco [...] which she wants to try it anyway. SYT:[id number] C: DOCUMENT: [id number] LY CHAIN TECH Luiz Quiroz MD - 06/04/1999 12:01 AM CST Progress Notes signed by Luiz Quiroz MD at 12/18/99 1539 Author: Luiz Quiroz MD Service: (none) Author Type: Physician Filed: 10/19/10 1419 Note Time: 06/04/99 0001 Status: Signed Grain Sacker: Luiz Quiroz MD (Physician) IMPRESSION: Asthma or [...] dysuria. Her other current problem is her fwwolo-ah-hfm recently and her is not handling it [...] Giang in one to two weeks. CC: [id number] C: DOCUMENT: [id number] Conversion, [facility] - 07/13/1998 12:01 AM CST Progress Notes signed by at 02/05/012035 Author: [facility] Conversion Service: (none) Author Type: (none) Filed: 10/19/10 0849 Note Time: 07/13/98 0001 Status: Signed Grain Sacker: Namita Bledsoe IMPRESSION: Hematuria and dysuria. SUBJECTIVE: [...] with her primary physician for further evaluation. [facility] SCHEDULED RESOURCE: [facility] Dora Gaston MD - 10/09/1997 12:01 AM CDT Progress Notes signed by Dora Rico MD at 03/22/98 1442 Author: Droa Rico MD Service: (none) Author Type: Physician Filed: 10/19/10 0413 Note Time: 10/09/97 0001 Status: Signed Grain Sacker: Dora Rico MD (Physician) IMPRESSION: 1. Sinusitis. [...] 0239 Note Time: 07/05/97 0001 Status: Signed Grain Sacker: Gayatri Wiggins MD (Physician) IMPRESSION: No dictation required. Sinusitis. SUBJECTIVE: N/A. Shruti Enrique. OBJECTIVE: N/A ASSESSMENT: N/A PLAN: Amoxicillin. lap LY CHAIN TECH Anuel Giang MD - 04/16/1997 12:01 AM CDT Progress Notes signed by at 04/22/97 1152 Author: Anuel Giang MD Service: (none) Author Type: (none) Filed: 10/19/10 0132 Note Time: 04/16/97 0001 Status: Signed Grain Sacker: Namita Conversion IMPRESSION: 1. Anxiety. 2. Breast [...] Department. cc: Anuel Giang M.D., Internal Medicine, [facility] Aicha Chin MD - 01/07/1997 12:01 AM CDT Progress Notes signed by Aicha Lanier MD at 05/10/02 0310 Author: Aicha Lanier MD Service: (none) Author Type: Physician Filed: 10/19/10 0013 Note Time: 01/07/97 0001 Status: Signed Grain Sacker: Aicha Lanier MD (Physician) IMPRESSION: No dictation required. Urinary tract infection. Bactrim DS b.i.d. x three days, one refill. SUBJECTIVE: N/A OBJECTIVE: N/A ASSESSMENT: N/A PLAN: N/A [facility] Ladi [facility] - 11/28/1996 12:01 AM CDT Progress Notes signed by at 04/19/98 1840 Author: Namita Bledsoe Service: (none) Author Type: (none) Filed: 10/18/10 2346 Note Time: 11/28/96 0001 Status: Signed Grain Sacker: Namita Bledsoe IMPRESSION: Sinusitis. SUBJECTIVE: Complains of sinus symptoms with right-sided facial pressure, pain, and drainage. OBJECTIVE: Tender over the maxillary sinus. Throat is clear. Lungs are clear. ASSESSMENT: Sinusitis. PLAN: Amoxicillin 500 mg t.i.d. for a week. giovanni SCHEDULED RESOURCE: AICHA FLYNN MD LY CHAIN TECH Jose Crain MD - 03/16/1996 12:01 AM CDT Progress Notes signed by Jose Crain MD at 04/20/96 1309 Author: Jose Crain MD Service: (none) Author Type: Physician Filed: 10/18/102047 Note Time: 03/16/96 0001 Status: Signed Grain Sacker: Jose Crain MD (Physician) IMPRESSION: Pneumonia. SUBJECTIVE: [...] not improving over the next 2-4 weeks. [facility] Gayatri Wiggins MD - 01/12/1996 12:01 AM CDT Progress Notes signed by Gayatri Wiggins MD at 05/10/02 0310 Author: Gayatri Wiggins MD Service: (none) Author Type: Physician Filed: 10/18/102011 Note Time: 01/12/96 0001 Status: Signed Grain Sacker: Gayatri Wiggins MD (Physician) IMPRESSION: No dictation required. Sinusitis. SUBJECTIVE: N/A OBJECTIVE: N/A ASSESSMENT: N/A PLAN: Treatment: Septra. Beconase nasal spray. giovanni Pravin Noble - 01/07/1996 12:01 AM CDT Progress Notes signed by Pravin Ho DO at 01/13/96 0952 Author: Pravin Ho DO Service: (none) Author Type: (none) Filed: 10/18/102008 Note Time: 01/07/96 0001 Status: Signed Grain Sacker: Pravin Ho DO (Physician) IMPRESSION: Sinusitis. SUBJECTIVE: [...] 1845 Note Time: 08/14/95 0001 Status: Signed Grain Sacker: Adriana Palmer MD (Physician) IMPRESSION: No dictation required. This 49-year-old patient was diagnosed with a urinary tract infection. SUBJECTIVE: N/A OBJECTIVE: N/A ASSESSMENT: N/A PLAN: N/A john Pravin Noble - 06/14/1995 12:01 AM CST Progress Notes signed by Pravin Ho DO at 06/20/95 1304 Author: Pravin Ho DO Service: (none) Author Type: (none) Filed: 10/18/10 5727 Note Time: 06/14/95 0001 Status: Signed Grain Sacker: Pravin Ho DO (Physician) IMPRESSION: Upper respiratory [...] Service: (none) Author Type: Physician Filed: 10/18/10 9106 Note Time: 04/30/95 0001 Status: Signed Grain Sacker: Leeroy Thorne MD (Physician) IMPRESSION: Acute sinusitis, [...] other problems in the meanwhile. ncss/jmn LY CHAIN TECH documented in this encounter Plan of Treatment Not on filedocumented as of this encounter Procedures Procedure Name Priority Date/Time Associated Comments Diagnosis XR CHEST PA WITH Routine 06/04/1999 11:06 AM Resu lts for this LATERAL SUPPLY CHAIN TECH procedure are i n the results section. URINE CULTURE Routine 07/13/1998 12:44 PM Results for this SUPPLY CHAIN TECH procedure are i n the results section. URINALYSIS COMPLETE Routine 07/13/1998 8:28 AM Re sults for this HOLD CULTURE SUPPLY CHAIN TECH procedure are i n the results section. ANC RESULT Routine 03/16/1996 9:17 AM Results f or this CONVERSION DEFAULT CDT procedure are in ORDER the results section. ANC RESULT Routine 04/27/1994 9:00 AM Results f or this CONVERSION DEFAULT CDT procedure are in ORDER the results section. ANC RESULT Routine 09/07/1990 11:30 AM Results for this CONVERSION DEFAULT SUPPLY CHAIN TECH procedure are in ORDER the results section. documented in this encounter Results XR Chest PA With Lateral (06/04/1999 11:06 AM SUPPLY CHAIN TECH) Anatomical Region Laterality Modality Other Specimen (Source) Anatomical Location Collection Method / Collectio n Time Received Time / Laterality Volume Impressions 06/04/1999 11:06 AM SUPPLY CHAIN TECH : ?NORMAL CHEST. FINDINGS: ?CH1 ?THE CARDIOVASCULAR STRUCTURES APPE AR NORMAL. ?NO EVIDENCE OF ACTIVE PULMONARY DI SEASE. TECH-ID : ? OO TRANS-ID: Narrative 06/04/1999 11:06 AM SUPPLY CHAIN TECH CLINICAL DATA: ?DRY COUGH Procedure Note Aldo Joseph - 09/09/2016Formatting of t his note might be different from the original. CLINICAL DATA: DRY COUGH IMPRESSION : NORMAL CHEST. FINDINGS: CH1 THE CARDIOVASCULAR STRUCTURES APPEAR NO RMAL. NO EVIDENCE OF ACTIVE PULMONARY DISEASE . TECH-ID : OO TRANS-ID: Luiz Quiroz MD RAD GD Urine Culture (07/13/1998 12:44 PM SUPPLY CHAIN TECH) Analysis Performed At [facility] Time Signature Urine Culture SEE TEXT HP CONVERSION Comment: Patient: SHRUTI ENRIQUE Culture, Urine @ ?Collected: ?124 Source: Clean Ca ?Processed: ??[id number] ??[id number] ? SENS IV Final Report ------ ?[id number] ??[id number] No growth @ = URINE CULTURE Performed at ??[address] [place], [place] ?[address] Specimen (Source) Anatomical Collection Method Collection Time Re ceived Time Location / / Volume Laterality 07/13/1998 12:44 PM SUPPLY CHAIN TECH Dora Rico MD LAB_1 Performing Organization Address [facility] Phon e Number HP CONVERSION (ABNORMAL) Urinalysis Complete Hold Culture (07/13/1998 8:28 AM SUPPLY CHAIN TECH) [facility] gist Method Time Signature U Specific <=1.005 1.005 - 25 HP CONVERSION [place] pH Urine 5.5 4.5 - 7.5 HP [...] / / Volume Laterality 07/13/1998 8:28 AM SUPPLY CHAIN TECH Dora Rico MD LAB_1 Performing Organization Address City/[facility] Phon e Number HP CONVERSION Anc Result [...] Result Conversion Default Order (09/07/1990 11:30 AM SUPPLY CHAIN TECH) Anatomical Region Laterality Modality Other Specimen (Source) Anatomical Location Collection Method / Collectio n Time Received Time / Laterality Volume Narrative 09/07/1990 11:30 AM SUPPLY CHAIN TECH CLINICAL DATA: ?SX'S X1 WEEK,NASAL MISTI & [...] on filedocumented in this encounter Care Teams [employer] Supervisor Relationship Specialty Start Date End Date Unassigned, Provider PCP - General 04/03/00 10/31/[address] [place] [id number] documented as of this encounter
[2022-06-08 22:25] LABS: Bilirubin Direct* 0.2 mg/dL (0.0-0.5); Bilirubin Total* 0.3 mg/dL (0.1-1.5); Total Protein* 6.9 g/dL (6.0-8.3)
[2022-06-08 22:26] LABS: Alanine Aminotransferase* 25 U/L (4-35); Alkaline Phosphatase* 94 U/L (40-150); Aspartate Amino Transferase* 42 U/L (12-35)
== END 2022-06-08 11:05 | disposition home or self-care (01) ==
LOC: LKVREF 11:05
PROVIDERS: PCP Emergency Medicine; Visit Provider Emergency Medicine
DX: R74.01 Elevation of levels of liver transaminase levels (principal)
CPT/HCPCS: 80076

== ENCOUNTER 2023-07-18 19:32 | Inpatient (IN) | payer MEDICARE, SELFPAY ==
[2023-07-18] VITALS (25 sets, daily range): BP systolic 112–162; BP diastolic 63–93; PULSE 125–148; RESP 26–30; TEMP 38.4–39.2; O2SAT 87–93; BMI 19.5
--- NOTE | 2023-07-18 20:05 | ED.GENADULT ---
HPI - General Adult General Time Seen by Provider: 20:06 Date Seen: 07/18/23 Chief complaint: Cough Stated complaint: low oxygen, cough, fatigue Time Seen by Provider: 07/18/23 20:05 Source: patient, RN notes reviewed and old records reviewed Mode of arrival: ambulatory Limitations: no limitations History of Present Illness HPI narrative: Shruti is a 77-year-old female with tobacco use up until 3 years ago, history of hospitalization for COVID and history of atrial fibrillation with RVR who comes to the emergency room along with her son with complaints of weakness. Shruti is accompanied by her son who is very loving and supportive. They both were at an event on July 12 and on Sunday both started experiencing a cough that was nonproductive which evolved into nasal congestion. Shruti has had intermittent sore throat and has had a rapid heartbeat over the past few days although they did not check it until today and heart rate was in the 140s. Shruti and her son note that the congestion has improved and she denies any chest pain except when she is coughing. She notes that she feels very weak and that is why she has come in. They did not do any testing at home. Shruti is not vaccinated for COVID or influenza. She was hospitalized in 2020 with COVID here. Son states that she was in for 2 days and then her insurance kicked her out and then she had to come back and state for an additional 4 days. In 2021 she had COVID again and she was hospitalized under a compassionate status he states and ended up staying a few days. Unfortunately patient is experiencing diarrhea. This happened with her COVID infection previously. No blood in her stool. Denies dysuria. Related Data Home Medications Medication Instructions Recorded Confirmed gabapentin 400 mg capsule See Rx Instructions .Route 05/31/22 07/18/23 .COMPLEX PRN restless leg(s) omeprazole 20 mg capsule,delayed 20 mg PO DAILY 05/31/22 07/18/23 release sertraline 100 mg tablet 100 mg PO DAILY 05/31/22 07/18/23 tramadol 50 mg tablet 50 mg PO Q8H 05/31/22 07/18/23 Previous Rx's Medication Instructions Recorded potassium chloride 10 mEq 10 meq PO DAILYWM #30 caps 06/02/22 capsule,extended release Allergies Allergy/AdvReac Type Severity Reaction Status Date / Time ferrous sulfate Allergy Unknown Nausea Verified 07/18/23 21:50 Review of Systems Status of ROS: Reports: 10 or more systems reviewed and unremarkable except as noted in History and below Narrative: Denies history of blood clots. No calf tenderness or swelling. Const: Reports: fatigue; Denies: fever or chills Eyes: Denies: change in vision ENMT: Reports: throat pain and nasal congestion; Denies: neck pain, throat swelling, difficulty swallowing or ear pain Cardio: Reports: chest pain (When cough); Denies: swelling of feet/ankles or shortness of breath with exertion (O2 sats typically 95%) Resp: Reports: cough and wheezing; Denies: shortness of breath (O2 sats typically 95%) GI: Reports: diarrhea; Denies: abdominal pain, nausea, vomiting or difficulty swallowing : Denies: painful urination Musculo: Denies: neck pain Endo: Reports: fatigue Allergy/Immuno: Reports: wheezing; Denies: throat swelling [facility] Medical History (Updated 07/19/23 @ 00:23 by Marline Burgos MD) Elevated transaminase level ?R74.01 - Elevation of levels of liver transaminase levels (ICD-10) Acute hypoxemic respiratory failure ?J96.01 - Acute respiratory failure with hypoxia (ICD-10) History of gastric ulcer (01/31/12) ?Z87.11 - Personal history of peptic ulcer disease (ICD-10) SVT (supraventricular tachycardia) ?I47.1 - Supraventricular tachycardia (ICD-10) Hypokalemia ?E87.6 - Hypokalemia (ICD-10) Nephrolithiasis ?N20.0 - Calculus of kidney (ICD-10) Restless leg syndrome ?G25.81 - Restless legs syndrome (ICD-10) Generalized anxiety disorder ?F41.1 - Generalized anxiety disorder (ICD-10) Iron deficiency anemia ?D50.9 - Iron deficiency anemia, unspecified (ICD-10) Chronic back pain ?M54.9 - Dorsalgia, unspecified (ICD-10) ?G89.29 - Other chronic pain (ICD-10) Controlled substance agreement signed ?Z79.899 - Other superintendent container terminal (current) drug therapy (ICD-10) Gastric ulcer ?K25.9 - Gastric ulcer, unspecified as acute or chronic, without hemorrhage or perforation (ICD-10) Surgical History (Updated 05/31/22 @ 21:41 by Chio Joseph MD) S/P YUNG-BSO ?Z90.710 - Acquired absence of both cervix and uterus (ICD-10) ?Z90.722 - Acquired absence of ovaries, bilateral (ICD-10) ?Z90.79 - Acquired absence of other genital organ(s) (ICD-10) Family History (Updated 05/31/22 @ 21:45 by Chio Joseph MD) Mother Cataract Osteoarthritis PUD (peptic ulcer disease) Brother No problems noted. Brother High cholesterol High blood pressure Retinal detachment Sister AAA (abdominal aortic aneurysm) Renal failure Family/Other Myocardial infarction Social History (Updated 05/31/22 @ 22:37 by Chio Joseph MD) Narrative: Quit smoking 1 year ago. Smoked 1/2-1ppd. Denies alcohol or recreational drugs. FULL CODE. Smoking Status: Former smoker Nicotine containing products detail: quit 1 year ago 2020 Second hand tobacco smoke exposure: No How often do you have a drink containing alcohol: never AUDIT-C Alcohol total score: 0 Non-prescribed substance use: denies use Caffeine: No Little interest or pleasure in doing things: not at all Feeling down, depressed, or hopeless: not at all Exam Narrative: Exam Narrative: Alert and oriented. Very hard of hearing but able to hear if you talk loud. Normal mentation inappropriate response. Lips are dry but tongue is moist. Neck is supple without lymphadenopathy. Heart with a tachycardic rate/normal rhythm. Lungs show crackles in the right lower lung base. Left lower lung field with decreased sounds. Abdomen is soft nontender. Moving all extremities. Ankles are without edema or swelling. Const: Vital Signs, click to edit/add: Vital Signs - 24 hr 07/18/23 19:51 07/18/23 20:13 07/18/23 20:15 Temperature 101.1 F H Pulse Rate 133 H 135 H Pulse Rate [Pulse Oximeter] 144 H Respiratory Rate 30 H Blood Pressure Blood Pressure [Ri ght Upper Arm] 112/73 Pulse Oximetry 92 91 91 Oxygen Delivery Me thod Room Air Oxygen Flow Rate 07/18/23 20:30 07/18/23 20:41 07/18/23 20:45 Temperature Pulse Rate 132 H 139 H 147 H Pulse Rate [Pulse Oximeter] Respiratory Rate Blood Pressure 159/89 H Blood Pressure [Ri ght Upper Arm] Pulse Oximetry 91 90 90 Oxygen Delivery Me thod Oxygen Flow Rate 07/18/23 21:00 07/18/23 21:02 07/18/23 21:15 Temperature Pulse Rate 143 H 133 H 128 H Pulse Rate [Pulse Oximeter] Respiratory Rate Blood Pressure 132/75 Blood Pressure [Ri ght Upper Arm] Pulse Oximetry 92 92 91 Oxygen Delivery Me thod Room Air Oxygen Flow Rate 07/18/23 21:30 07/18/23 21:41 07/18/23 21:45 Temperature Pulse Rate 129 H 137 H 136 H Pulse Rate [Pulse Oximeter] Respiratory Rate Blood Pressure 152/80 H Blood Pressure [Ri ght Upper Arm] Pulse Oximetry 91 91 91 Oxygen Delivery Me thod Oxygen Flow Rate 07/18/23 22:02 07/18/23 22:26 07/18/23 22:30 Temperature Pulse Rate 144 H 141 H 132 H Pulse Rate [Pulse Oximeter] Respiratory Rate Blood Pressure 162/93 H Blood Pressure [Ri ght Upper Arm] Pulse Oximetry 93 91 91 Oxygen Delivery Me thod Oxygen Flow Rate 07/18/23 22:42 07/18/23 22:43 07/18/23 22:45 Temperature Pulse Rate 140 H 140 H 138 H Pulse Rate [Pulse Oximeter] Respiratory Rate Blood Pressure 147/86 H Blood Pressure [Ri ght Upper Arm] Pulse Oximetry 91 90 90 Oxygen Delivery Me thod Oxygen Flow Rate 07/18/23 23:00 07/18/23 23:02 07/18/23 23:15 Temperature Pulse Rate 144 H 142 H 145 H Pulse Rate [Pulse Oximeter] Respiratory Rate Blood Pressure 140/78 H Blood Pressure [Ri ght Upper Arm] Pulse Oximetry 89 89 89 Oxygen Delivery Me thod Oxygen Flow Rate 07/18/23 23:22 07/18/23 23:30 07/18/23 23:42 Temperature 102.6 F H Pulse Rate 148 H 136 H 135 H Pulse Rate [Pulse Oximeter] Respiratory Rate 26 H Blood Pressure 131/63 133/74 Blood Pressure [Ri ght Upper Arm] Pulse Oximetry 87 L 92 92 Oxygen Delivery Me thod OxyMask Oxygen Flow Rate 2 07/18/23 23:45 07/19/23 00:00 07/19/23 00:15 Temperature 101.1 F H Pulse Rate 125 H 122 H 128 H Pulse Rate [Pulse Oximeter] Respiratory Rate Blood Pressure Blood Pressure [Ri ght Upper Arm] Pulse Oximetry 92 94 94 Oxygen Delivery Me thod OxyMask OxyMask OxyMask Oxygen Flow Rate 2 2 2 07/19/23 00:22 07/19/23 00:41 07/19/23 01:02 Temperature Pulse Rate 119 H 133 H 132 H Pulse Rate [Pulse Oximeter] Respiratory Rate Blood Pressure 142/77 H 134/74 119/65 Blood Pressure [Ri ght Upper Arm] Pulse Oximetry 94 94 94 Oxygen Delivery Me thod OxyMask OxyMask Oxygen Flow Rate 2 2 07/19/23 01:15 07/19/23 01:22 07/19/23 01:30 Temperature Pulse Rate 135 H 133 H 134 H Pulse Rate [Pulse Oximeter] Respiratory Rate Blood Pressure 127/75 Blood Pressure [Ri ght Upper Arm] Pulse Oximetry 93 94 95 Oxygen Delivery Me thod Oxygen Flow Rate 07/19/23 01:31 Temperature 99.0 F Pulse Rate Pulse Rate [Pulse Oximeter] Respiratory Rate Blood Pressure Blood Pressure [Ri ght Upper Arm] Pulse Oximetry Oxygen Delivery Me thod Oxygen Flow Rate Documenting provider has reviewed patient's vital signs: yes Course Course ED Course: Differential diagnosis includes but is not limited to AFib with RVR, COVID, influenza, RSV, pneumonia, bronchitis, dehydration, acute coronary syndrome. Will place IV give 500 mL normal saline while awaiting a swab results. CBC, comprehensive, CRP, troponin, D-dimer, chest x-ray, old testament professor ordered. Reevaluation(s) Reevaluation #1: Patient noted to have some improvement of her heart rate to 120. She is not entirely sure she is feeling better. She received a 2nd 500 mL bolus. Initial troponin is negative. At this time her O2 saturations are maintaining at approximately 91%. Unfortunately, she does not meet time deadline for the use of Tamiflu to be helpful. Given elevated dimer will proceed with CT of the chest. Reevaluation #2: Patient noted to have a rise in temperature to 102. She seemed a little more confused. We did give her 1 g of Tylenol. Currently awaiting CT of the chest results. Also O2 sats dropped to 88% and thus we did start low-dose oxygen. Vital Signs Vital signs: Initial Vital Signs Temperature 101.1 F H 07/18/23 19:51 Temperature Source Temporal Artery Scan 07/18/23 19:51 Pulse Rate 144 H 07/18/23 19:51 Respiratory Rate 30 H 07/18/23 19:51 Blood Pressure 112/73 07/18/23 19:51 Blood Pressure Mean 86 07/18/23 19:51 Blood Pressure Position Sitting 07/18/23 19:51 Pulse Oximetry 92 07/18/23 19:51 Oxygen Delivery Method Room Air 07/18/23 19:51 Vital Signs Temperature 101.1 F H 07/18/23 19:51 Pulse Rate 144 H 07/18/23 19:51 Respiratory Rate 30 H 07/18/23 19:51 Blood Pressure 112/73 07/18/23 19:51 Pulse Oximetry 92 07/18/23 19:51 Oxygen Delivery Method Room Air 07/18/23 19:51 Temperature 99.0 F 07/19/23 01:31 Pulse Rate 134 H 07/19/23 01:30 Respiratory Rate 26 H 07/18/23 23:42 Blood Pressure 127/75 07/19/23 01:22 Pulse Oximetry 95 07/19/23 01:30 Oxygen Delivery Method OxyMask 07/19/23 00:41 Oxygen Flow Rate 2 07/19/23 00:41 Medications Administered Medications: Generic Name Dose Route Start Last Admin Trade Name Freq PRN Reason Stop Dose Admin Piperacillin Sod/Tazobactam 100 mls @ 200 mls/hr 07/19/23 01:18 07/19/23 01:31 Sod 3.375 gm/ Sodium Chloride IVPB 07/19/23 01:19 200 mls/hr ONCE ONE Administration Oseltamivir Phosphate 75 mg 07/19/23 01:39 07/19/23 01:50 Oseltamivir Phosphate 75 Mg Capsule PO 07/19/23 01:40 75 mg ONCE ONE Administration Discontinued Medications Generic Name Dose Route Start Last Admin Trade Name Freq PRN Reason Stop Dose Admin Acetaminophen 1,000 mg 07/18/23 23:36 07/18/23 23:43 Acetaminophen 500 Mg Tablet PO 07/18/23 23:37 1,000 mg ONCE ONE Administration Sodium Chloride 500 mls @ 500 mls/hr 07/18/23 20:25 01/17/24 20:55 0.9 % Sodium Chloride 500 Ml IV 07/18/23 21:24 Infused .Q1H ONE Infusion Sodium Chloride 500 mls @ 500 mls/hr 07/18/23 20:49 07/18/23 23:45 0.9 % Sodium Chloride 500 Ml IV 07/18/23 21:48 Infused .Q1H ONE Infusion Sodium Chloride 1,000 mls @ 1,000 mls/hr 07/18/23 23:44 07/19/23 01:31 0.9 % Sodium Chloride 1000 Ml IV 07/19/23 00:43 Infused .Q1H MELI Infusion Medical Decision Making MDM Narrative Medical decision making narrative: 1. Influenza A-today is day 5 of symptoms. Patient would certainly be out of the window for reaching use of Tamiflu if she was an outpatient but because she is being admitted she will be treated with Tamiflu 75 mg p.o. here tonight. I did discuss this with the hospitalist. Lactate initially 2.3 has improved to normal after 1 L of saline. Blood pressure has been stable this entire stay. CRP elevated at 36.7. 2. Pneumonia-patient noted to have pneumonia on CT. CT accomplished secondary to elevated D-dimer. Fortunately no evidence of a PE. Statement that this could possibly aspiration pneumonia. Most likely viral but given age of patient and distribution I have elected to treat. No reported choking episodes. Zosyn 3.375 g IV is given. Patient noted to have fever up to 102 and we have given Tylenol 1 g. Oxygen levels initially at 91% now have dropped to 88 but have rebounded nicely with venturi mask to 95%. Update: After discussion with hospitalist further antibiotics will likely be dependent upon procalcitonin level. This is currently pending. 3. Persistent tachycardia -slightly improved with 1 L of normal saline. A 2 L has been given and patient's heart rate while I was speaking to her arise in continued to be elevated. As soon as I was done with that conversation heart rate noted to have dropped to 107-110. Second EKG is being accomplished at this time. Patient noted to have past history of atrial fibrillation with RVR during a previous hospitalization but outpatient follow-up with a Zio patch did not reveal any arrhythmia. Patient is not anticoagulated. While heart rate is increased up to 140 upon her arrival I do believe I see P-waves and that this is sinus tachycardia and likely physiological in nature. At this time patient has finished her 2 L and after 1 g of Tylenol is now afebrile. No rate control medication given in the ED. Update: Discussion with hospitalist he-she would like to see EKG 1st prior to initiating any rate control. Patient has not had any chest pain secondary to this and she has 2- troponin levels. 4. Hypokalemia-potassium 3.3. Will order oral replacement at this time. 5. Disposition-admit to the [facility] observation under the care of Dr. Damian. She is requesting that I sign out with [facility]. Update: I the pleasure of speaking a Dr. Contreras who is accepting this patient to our hospital. Medical Records Medical records reviewed: Yes I reviewed the patient's medical records Lab Data Lab results reviewed: Yes I reviewed the patient's lab results Labs: Lab Results 07/18/23 07/18/23 07/18/23 Range/Units 19:50 20:25 20:52 WBC 9.36 (4.50-11.00) K/uL RBC 4.22 (4.00-5.20) m/uL Hgb 11.4 L (12.0-16.0) gm/dL Hct 36.8 (33.0-51.0) % MCV 87 (80-100) fL MCH 27 (26-34) pg MCHC 31 L (32-36) gm/dL RDW Coeff of William 15.6 H (11.5-15.5) % Plt Count 211 (140-440) K/uL Neut % (Auto) 87.3 H (42.0-72.0) % Lymph % (Auto) 3.0 L (20-44) % Terrell % (Auto) 9.2 (0.0-11.0) % Eos % (Auto) 0.0 (0.0-7.0) % Baso % (Auto) 0.0 (0.0-3.0) % Neut # (Auto) 8.20 H (1.7-7.0) K/uL Lymph # (Auto) 0.30 L (0.90-2.90) K/uL Terrell # (Auto) 0.90 (0.00-0.90) K/UL Eos # (Auto) 0.00 (0.00-0.50) K/uL Baso # (Auto) 0.00 (0.00-0.30) K/uL Abs Immat Gran (auto) 0.05 (0.00-0.30) K/uL Imm/Tot Granulo (auto) 0.5 % D-Dimer Quant (PE/DVT) 1.00 H (0.00-0.50) ug/ml Sodium 134 L (135-149) mmol/L Potassium 3.3 L (3.6-5.1) mmol/L Chloride 103 (96-114) mmol/L Carbon Dioxide 19 L (20-32) mmol/L Anion Gap 12 (7-15) mEq/L BUN 24 (7-30) mg/dL Creatinine 0.8 (0.5-1.5) mg/dL Estimated Creat Clear 37.70 Estimated GFR 76 ml/min Glucose 172 H (60-115) mg/dL Lactate 2.3 H (0.5-1.9) mmol/L Calcium 9.1 (8.4-10.6) mg/dL Magnesium 1.7 (1.5-2.6) mg/dL Total Bilirubin 0.2 (0.1-1.5) mg/dL AST 36 H (12-35) U/L ALT 20 (4-35) U/L Alkaline Phosphatase 146 (40-150) U/L Troponin I 0.02 (0.01-0.04) ng/mL C-Reactive Protein 36.7 H (0.5-1.0) mg/dL Total Protein 6.5 (6.0-8.3) g/dL Albumin 3.7 (3.3-5.0) g/dL SARS-CoV-2 (PCR) Negative SARS-CoV-2 (Negative) Influenza Type A (PCR) POSITIVE PCR FLU A A (Negative) Influenza Type B (PCR) Negative PCR FLU B (Negative) RSV (PCR) Negative PCR RSV (Negative) Lab Acknowledgement Test Added POC Troponin I (0.01-0.04) ng/ml 07/19/23 07/19/23 Range/Units 00:00 00:01 WBC (4.50-11.00) K/uL RBC (4.00-5.20) m/uL Hgb (12.0-16.0) gm/dL Hct (33.0-51.0) % MCV (80-100) fL MCH (26-34) pg MCHC (32-36) gm/dL RDW Coeff of William (11.5-15.5) % Plt Count (140-440) K/uL Neut % (Auto) (42.0-72.0) % Lymph % (Auto) (20-44) % Terrell % (Auto) (0.0-11.0) % Eos % (Auto) (0.0-7.0) % Baso % (Auto) (0.0-3.0) % Neut # (Auto) (1.7-7.0) K/uL Lymph # (Auto) (0.90-2.90) K/uL Terrell # (Auto) (0.00-0.90) K/UL Eos # (Auto) (0.00-0.50) K/uL Baso # (Auto) (0.00-0.30) K/uL Abs Immat Gran (auto) (0.00-0.30) K/uL Imm/Tot Granulo (auto) % D-Dimer Quant (PE/DVT) (0.00-0.50) ug/ml Sodium (135-149) mmol/L Potassium (3.6-5.1) mmol/L Chloride (96-114) mmol/L Carbon Dioxide (20-32) mmol/L Anion Gap (7-15) mEq/L BUN (7-30) mg/dL Creatinine (0.5-1.5) mg/dL Estimated Creat Clear Estimated GFR ml/min Glucose (60-115) mg/dL Lactate 1.1 (0.5-1.9) mmol/L Calcium (8.4-10.6) mg/dL Magnesium (1.5-2.6) mg/dL Total Bilirubin (0.1-1.5) mg/dL AST (12-35) U/L ALT (4-35) U/L Alkaline Phosphatase (40-150) U/L Troponin I (0.01-0.04) ng/mL C-Reactive Protein (0.5-1.0) mg/dL Total Protein (6.0-8.3) g/dL Albumin (3.3-5.0) g/dL SARS-CoV-2 (PCR) (Negative) Influenza Type A (PCR) (Negative) Influenza Type B (PCR) (Negative) RSV (PCR) (Negative) Lab Acknowledgement POC Troponin I 0.03 (0.01-0.04) ng/ml Imaging Data Chest x-ray: Attestation: I have reviewed the pertinent imaging results. My impression: Increased lung markings throughout. Radiologist's impression: Patchy opacity in the left lung base suspicious for pneumonia. No pleural effusion or pneumothorax. Normal heart size. Mild pulmonary vascular congestion. Left convex thoracic curve. IMPRESSION: 1. Patchy opacity in the left lung base suspicious for pneumonia. 2. Mild pulmonary vascular congestion. CT scan - chest: Attestation: I have reviewed the pertinent imaging results. Radiologist's impression: Heart and vasculature: No cardiomegaly, no pericardial effusion. Within limitations of motion artifact, no filling defects identified within the main, lobar, and contrast opacified portions of the segmental pulmonary arteries. Multiple segmental pulmonary arteries are inadequately evaluated, as well as the subsegmental pulmonary arteries, particularly in the bilateral lower lobes. Lungs and pleura: Motion artifact. No evidence of pulmonary infarct. Multifocal patchy ground-glass opacities in the bilateral lower lobes, and dependent aspects of the right upper lobe and lingula. Thyroid and lower neck: No suspicious thyroid nodule. Mediastinum/peter: Few prominent mediastinal lymph nodes, may be reactive. Chest wall: No axillary lymphadenopathy. Upper abdomen: Poorly evaluated due to decreased signal to noise ratio. No acute abnormality identified. Bones: Multilevel degenerative changes of the spine. No suspicious/aggressive focal osseous lesion. IMPRESSION: 1. Limited study secondary to motion artifact. No central pulmonary embolus. 2. Multifocal patchy ground-glass opacities, worrisome for pneumonia. The distribution raises concern for aspiration. 3. Additional incidental findings as above. ECG Data Attestation: I personally reviewed and interpreted this ECG as follows: Interpretation: EKG by my read shows sinus tachycardia no acute ST or T-wave changes. MS and QT intervals normal. Second EKG by my read shows sinus tachycardia rate of 112. P-waves are noted. I do not note any acute ST or T-wave changes. QT and MS intervals within normal limits. Critical Care Time Critical Care Time Critical Care Time: Yes Attestation: The patient required my highest level preparedness to intervene emergently and I personally spent this critical care time directly and personally managing the patient. This critical care time included: Obtaining a history; Examining the patient; Pulse oximetry; Ordering and reviewing of studies; Arranging urgent treatment with development of a management plan; Evaluation of patients response to treatment; Frequent reassessment discussions with other providers. This critical care time was performed to assess and manage the high probability of imminent life-threatening deterioration that could result in multiorgan failure. It was exclusive of separate billable procedures and treating other patients and teaching time. Total Critical Care Time in Minutes: 45 Discharge Plan Discharge Clinical Impression: Influenza A, Hypoxia, Hypokalemia Patient Disposition: Admitted As Observation Condition: Improved
--- OUTSIDE RECORDS SUMMARY | 2023-07-18 20:34 | XMS_ITS | Clinical Summary ---
Author Name Unknown Organization [facility] Address [address] [place] [address] Care Team Providers Care Finishing Machine Operator Automatic Name Role Phone Shiraz Simeon PA-C Primary Care Provider [phone] Source Comments You are receiving this document as you are listed as the primary care provider,follow-up provider, or the patient has been referred to you for consultation.This is in compliance with the Medicare and[facility] EHR Incentive Program,which states Providers who transition their patient to another setting of careor provider of care or refers their patient to another provider of care shouldprovide summary care record for each transition of care or referral. [facility] Allergies Active Allergy Reactions Criticality Noted Date Comments Ferrous Sulfate Nausea 01/04/2012 Medications Medication Sig Dispensed Refills Start Date End Date Status ferrous sulfate (SLOFE) 142 (45 Fe) MG TBCR Take 1 Tablet by mouth every other day. 30 Tablet 3 06/01/2021 Active ondansetron (ZOFRAN-ODT) 4 MG disintegrating tablet Take 1 Tablet by mouth every 8 hours as needed for Nausea. 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 TAKE 1 HOURS BEFORE A MEAL 180 Capsule 0 07/09/2023 Active omeprazole (PRILOSEC) 20 MG capsuleIndications: History of gastric ulcer TAKE 1 CAPSULE BY MOUTH TWICE DAILY BEFORE MEALS. TAKE 1 HOUR BEFORE A MEAL. 180 Capsule 0 03/14/2023 07/09/19 24 Discontinued sertraline (ZOLOFT) 100 MG tabletIndications:G eneralized anxiety disorder (HRC) TAKE 1 TABLET(100 MG) BY MOUTH DAILY 90 Tablet 0 03/14/2023 07/09/19 24 Discontinued Active Problems Problem Noted Date Diagnosed Date Controlled substance agreement signed 04/29/2019 Overview: Diagnosis: Chronic Low back pain without sciatica Medication: Tramadol 50 mg, 1 tab BID Controlled Substance Agreement reviewed and signed: yes Date agreement signed: 04/29/2019 Refill plan: She may get #60 every 30 days. Medication check annually. Clinician: Shiraz Simeon PA-C History of gastric ulcer 01/31/2012 Chronic back pain 11/16/2011 Last Assessment & Plan: Doing well without being able to take [...] deficiency anemia 11/16/2011 Last Assessment & Plan: Despite feeling like her gastric ulcer has healed, her hemoglobin and ferritin levels have not come up into normal range again. She has had several iron infusions, most recent late fall 2011. She is due to see her horticulture teacher, and would like her labs done today in anticipation of that visit. She feels great, without shortness of breath, dyspnea on exertion, fatigue, headaches, or chest pain. Generalized anxiety disorder 11/02/2011 Last Assessment & Plan: LILI-7 score of 2. Tolerating her SSRI very well, and would like to continue it. She is active, engaged, motivated to do things, and sleeping well. Restless legs syndrome (RLS) 11/02/2011 Last Assessment & Plan: Has increased to 200 mg gabapentin twice daily to prevent RLS symptoms in the evening and overnight. Feels that this dosage is appropriate, no adverse effects, would like a new prescription reflecting the change. Discussed that as her hemoglobin and ferritin levels improve, it is very likely that her RLS symptoms will improve, as well. Resolved Problems Problem Noted Date Diagnosed Date Resolved Date NSAID-induced gastric ulcer 11/16/2011 01/27/2015 Last Assessment & Plan: Reports that she has no abdominal pain, [...] current questions or concerns. Encounters Date Type Department Care Team Description 07/07/2023 Refill [facility] [address] [place] [address] hSiraz Simeon PA-C Refill (sertraline (ZOLOFT) 100 MG tablet [Pharmacy Med Name: SERTRALINE 100MG TABLETS]; omeprazole (PRILOSEC) 20 MG capsule [Pharmacy Med Name: OMEPRAZOLE 20MG CAPSULES]) 06/07/2023 Refill [facility] [address] [place] [address] Shiraz Simeon PA-C Refill (gabapentin (NEURONTIN) 400 MG capsule [Pharmacy Med Name: GABAPENTIN 400MG CAPSULES]) from Last 3 Months Immunizations Name Administration Dates Next Due DT Ped 01/25/1989 Flu Vac Preserv Free (3+yrs) 04/04/2012 Influenza (Flucelvax), Preserv Free 07/11/2013 Influenza IIV3 (Trivalent) Anne Deanse, 65+ Yrs (30175) 06/22/2020,04/29/2019,04/17/2018,2016,04/08/2015 Influenza IIV4 (Quadrivalent ) 0.5mL (16932) 07/25/2016 Influenza, Unspecified Formulation 04/16/1997 PCV13 (Prevnar) 01/27/2015 PPSV23 (Pneumovax) 10/30/2012 TDAP (BOOSTRIX) 10/30/2012 Zoster (Zostavax) 01/27/2015 Zoster RZV (Shingrix) 04/29/2019 Family History Medical History Relation Name Comments Cataract Mother Osteoarthritis Mother PUD Mother High Cholesterol Brother 2 Jose Alejandro Hypertension Brother 2 Jose Alejandro Retinal Detachment Brother 2 Jose Alejandro Abdominal Aortic Aneurysm Sister 2 Yady no n-smoker, normotensive Renal Failure Sister 2 Yady Amblyopia/Strabismus Negative Family History Diabetes Negative Family History Glaucoma Negative Family History Macular Degeneration Negative Family History Relation Name Status Comments Father (Age 51) Heart marcos ck, sudden Mother (Age 94) in eep Brother 1 Alive Brother 2 Jose Alejandro Sister 1 (Age 51) complicati ons after AAA Sister 2 Yady Social History Tobacco Use Types Packs/Day Years Used Date Smoking Tobacco: Every Day Cigarettes Smokeless Tobacco: Never Alcohol Use Standard Drinks/Week Comments No 0 (1 standard drink = 0.6 oz pur e alcohol) PHQ-2 Answer Date Recorded PHQ-2 Score 2 03/14/2022 Sex and Gender Information Value Date Recorded Sex Assigned at Not on file Gender Identity Not on file Sexual Orientation Not on file Last Filed Vital Signs Vital Sign Reading Time Taken Comments Blood Pressure 100/62 06/01/2021 12:28 PM CONDENSER CLEANER Pulse 124 06/01/2021 12:28 PM CONDENSER CLEANER Temperature 36.6 ??C (97.8 ??F) 06/01/2021 12:[address] Respiratory Rate 20 06/01/2021 12:28 PM CONDENSER CLEANER Oxygen Saturation 97% 06/01/2021 12:28 PM CONDENSER CLEANER Inhaled Oxygen Concentration - - Weight 47.6 kg (105 lb) 04/04/2021 8:28 AM CDT P ER PT Height 160 cm (5' 3) 04/04/2021 8:28 AM CDT PER PT Body Mass Index 18.6 04/04/2021 8:28 AM CDT Plan of Treatment Upcoming Encounters Date Type Department Care Team Description 07/31/2023 10:30 AM CONDENSER CLEANER Telemedicine [facility] [address] [place] [address] Shiraz Simeon PA-C [address] [place] [address] Health Maintenance Due Date Last Done Comments COVID-19 Vaccine (#1) 04/01/1946 Dexa 10/01/2011 Zoster/Shingles (3 of 3) 06/24/2019 04/29/2019, 12/31 Colonoscopy 11/07/2021 11/08/2011 (Completed) DTaP/Tdap/Td (3 - Tdap) 10/30/2022 10/31/19 13, 10/30/2012, 01/25/1989 Influenza (#1) 2023 06/22/2020, 04/02, 04/17/2018, Additional history exists Medicare Annual Wellness Visit 03/14/2023 03/14/2022, 04/17/2018 Pneumococcal 65+ Yrs Completed 01/27/2015, 10/30/2012, 10/30/2012 Cholesterol Discontinued 04/17/2018, 12/01, 10/30/2012 Hep C Screening (Preventive Services) Completed 04/17/2018 HepA Aged Out No longer eligi ble based on patient's age to complete this topic HepB Aged Out No longer eligi ble based on patient's age to complete this topic Hib Aged Out No longer eligi ble based on patient's age to complete this topic IPV ([place]) Aged Out No longer eligi ble based on patient's age to complete this topic MCV4 Aged Out No longer eligi ble based on patient's age to complete this topic Care Teams Finishing Machine Operator Automatic Relationship Specialty Start Date End Date Shiraz Simeon PA-C [address] [place] [id number] PCP - General 03/02/16
--- OUTSIDE RECORDS SUMMARY | 2023-07-18 20:34 | XMS_ITS | Encounter Summary ---
Author Name Unknown Organization [facility] Address [address] [place] [address] Care Team Providers Care Corporate Tax Manager Name Role Phone Shiraz Simeon PA-C Primary Care Provider [phone] Reason for Visit * Reason Comments Refill traMADol (ULTRAM) 50 MG tablet [Pharmacy Med Name: TRAMADOL 50MG TABLETS] Encounter Details Date Type Department Care Team Description 04/02/2023 Refill [facility] [address] [id number] Shiraz Simeon PA-C [address] [place] [address] [address] [place] [id number] Refill (traMADol (ULTRAM) 50 MG tablet [Pharmacy Med Name: TRAMADOL 50MG TABLETS]) Social History Tobacco Use [...] on file Sexual Orientation Not on file documented as of this encounter Nursing Notes * Interface, Out Surescripts Prov Query - 04/02/2023 5:14 PM CDT traMADol (ULTRAM) 50 MG tablet [Pharmacy Med Name: TRAMADOL 50MG TABLETS] Medication started: 12/16/2017 Last ordered by SHIRAZ SIMEON: 10/24/2022 (160 days ago) QTY: 90, Refills: 0, Sig: take 1 tablet(50mg) by mouth every 8 hours as needed for pain (unchanged) -> Medication cannot be delegated. Last qualifying visit: 03/14/2022 (with SHIRAZ SIMEON) Next scheduled visit: None [employer] Embedded Refills, Reference: [id number], 04/02/2023 5:14:27 PM CDT, Pool: ARIANNE REFILL ([id number]) * Interface, Out [employer] Prov Query - 04/02/2023 5:14 PM CDT No Careplan note found by [facility]. documented in this encounter Plan of Treatment Upcoming Encounters Date Type Department Care Team Description 07/31/2023 10:30 AM OVERWEAVER Telemedicine [facility] [address] [id number] Shiraz Simeon, PAMisbahC [address] [place] [id number] documented as of this encounter Visit Diagnoses Diagnosis Chronic right-sided low back pain with right-sided sciatica documented in this encounter Care Teams Corporate Tax Manager Relationship Specialty Start Date End Date Shiraz Simeon PA-C [address] [place], [place] [address] PCP - General 03/02/16 documented as of this encounter
--- OUTSIDE RECORDS SUMMARY | 2023-07-18 20:34 | XMS_ITS | Encounter Summary ---
Author Name Unknown Organization [facility] Address [address] [place] [address] Care Team Providers Care Excel Vba Developer Name Role Phone Shiraz Simeon PA-C Primary Care Provider [phone] Reason for Visit * Reason Comments Refill sertraline (ZOLOFT) 100 MG tablet [Pharmacy Med Name: SERTRALINE 100MG TABLETS]; omeprazole (PRILOSEC) 20 MG capsule [Pharmacy Med Name: OMEPRAZOLE 20MG CAPSULES] Encounter Details Date Type Department Care Team Description 07/07/2023 Refill [facility] [address] [place] [address] Shiraz Simeon PA-C [address] [place] [id number] Refill (sertraline (ZOLOFT) 100 MG tablet [Pharmacy Med Name: SERTRALINE 100MG TABLETS]; omeprazole (PRILOSEC) 20 MG capsule [Pharmacy Med Name: OMEPRAZOLE 20MG CAPSULES]) Social History Tobacco Use [...] as of this encounter Nursing Notes * Gretta Ewing - 07/09/2023 9:24 AM CST Medication Refill - Due for Visit Medication still pending, patient is due to be seen in the next 30 days. Called patient, was: Successful in reaching patient. We recently received a refill request for one of your medications. To continue managing your medication refills, your clinician would like to see you for a(n): Patient is due for a: Video/Office Visit Patient scheduled appointment on: 07/31/23 Do you have enough medication to last until you appointment? No I will send a request to see if a temporary refill can be provided until your next appointment. Please check with your pharmacy on the status of your refill. We will notify you if it has not been approved. Frontline Action: Route to the appropriate pool or clinician, as specified in the nursing documentation below. Clinician Action: Patient scheduled, requests refill. Recommend using ???Rx Final??? quick action to address request. NING PROFESSIONAL * Unique Mathew RN - 07/09/2023 8:51 AM CST Further Assistance Needed on Refill from Gold Reclaimer Patient is due for Qualifying Visit Medication is still pending. Patient is due for a Office/Video Visit in the next 30 days. Call Patient and document using .BELLA. After attempting to schedule patient: Please route to: Shiraz Simeon PA-C or covering provider. Requested Prescriptions Pending Prescriptions Disp Refills sertraline (ZOLOFT) 100 MG tablet [Pharmacy Med Name: SERTRALINE 100MG TABLETS] 90 Tablet 0 Sig: TAKE 1 TABLET(100 MG) BY MOUTH DAILY omeprazole (PRILOSEC) 20 MG capsule [Pharmacy Med Name: OMEPRAZOLE 20MG CAPSULES] 180 Capsule 0 Sig: TAKE 1 CAPSULE BY MOUTH TWICE DAILY BEFORE MEALS. TAKE 1 HOURS BEFORE A MEAL NING PROFESSIONAL * Interface, Out Surescripts Prov Query - 07/07/2023 3:31 AM CST omeprazole (PRILOSEC) 20 MG capsule [Pharmacy Med Name: OMEPRAZOLE 20MG CAPSULES] Medication started: 12/16/2017 Last ordered by SHIRAZ SIMEON: 03/14/2023 (115 days ago) QTY: 180, Refills: 0, Sig: take 1 capsule by mouth twice daily before meals. take 1 hour before a meal. (changed but equivalent) -> An office visit is overdue (performed 16 months ago, required every 12 months). Last qualifying visit: 03/14/2022 (with SHIRAZ SIMEON) Next scheduled visit: None [facility] Embedded Refills, Reference: [id number], 07/07/2023 3:31:50 AM Clif LALA: ROSANNA Refill [facility] [[id number]] ([id number]) sertraline (ZOLOFT) 100 MG tablet [Pharmacy Med Name: SERTRALINE 100MG TABLETS] Medication started: 12/16/2017 Last ordered by SHIRAZ SIMEON: 03/14/2023 (115 days ago) QTY: 90, Refills: 0, Sig: take 1 tablet(100 mg) by mouth daily (unchanged) -> An office visit is overdue (performed 16 months ago, required every 12 months). Last qualifying visit: 03/14/2022 (with SHIRAZ SIMEON) Next scheduled visit: None Age: 77 [facility] Embedded Refills, Reference: [id number], 07/07/2023 3:31:50 AM TRAINING PROFESSIONAL, Pool: PN Refill [facility] [[id number]] ([id number]) NING PROFESSIONAL documented in this encounter Plan of Treatment Upcoming Encounters Date Type Department Care Team Description 07/31/2023 10:30 AM TRAINING PROFESSIONAL [facility] [address] [place] [id number] Shiraz Simeon PA-C [address] [id number] documented as of this encounter Visit Diagnoses Diagnosis Generalized anxiety disorder (HRC) Generalized anxiety disorder History of gastric ulcer Personal history of other diseases of digestive system documented in this encounter Care Teams Excel Vba Developer Relationship Specialty Start Date End Date Shiraz Simeon PA-C [address] [place] [phone] PCP - General 03/02/16 documented as of this encounter
--- OUTSIDE RECORDS SUMMARY | 2023-07-18 20:34 | XMS_ITS | Encounter Summary ---
Author Name Unknown Organization [facility] Address [address] [place] [address] Care Team Providers Care Fish Trapper Name Role Phone Shiraz Simeon PA-C Primary Care Provider [phone] Reason for Visit * Reason Comments Refill gabapentin (NEURONTI N) 400 MG capsule [Pharmacy Med Name: GABAPENTIN 400MG CAPSULES] Encounter Details Date Type Department Care Team Description 06/07/2023 Refill [facility] [address] [place] [address] Shiraz Simeon PA-C [address] [place] [address] [place] [address] Refill (gabapentin (NEURONTIN) 400 MG capsule [Pharmacy Med Name: GABAPENTIN 400MG CAPSULES]) Social History Tobacco Use Types Packs/Day [...] as of this encounter Nursing Notes * Josette Eller LPN - 06/07/2023 10:22 AM CST Pt ntfd and states she'll call back sometime to schedule the MAW. ER SUPERVISOR OPEN HEARTH FURNACE * Shiraz Simeon PA-C - 06/07/2023 10:20 AM CST Rx faxed for 90 day supply, please help her schedule IN [facility] ER SUPERVISOR OPEN HEARTH FURNACE * Interface, Out [employer] Prov Query - 06/07/2023 8:34 AM CST gabapentin (NEURONTIN) 400 MG capsule [Pharmacy Med Name: GABAPENTIN 400MG CAPSULES] Medication started: 08/10/2017 Last ordered by SHIRAZ SIMEON: 06/13/2022 (359 days ago) QTY: 450, Refills: 3, Sig: take 4 to 5 capsules by mouth at bedtime (unchanged) -> Medication cannot be delegated. Last qualifying visit: 03/14/2022 (with SHIRAZ SIMEON) Next scheduled visit: None [facility] Embedded Refills, Reference: [id number], 06/07/2023 8:34:50 AM SPIKE, Pool: PN Refill [facility] [[id number]] ([id number]) ER SUPERVISOR OPEN HEARTH FURNACE documented in this encounter Plan of Treatment Upcoming Encounters Date Type Department Care Team Description 07/31/2023 10:30 AM MELTER SUPERVISOR OPEN HEARTH FURNACE [facility] [address] [address] Shiraz Simeon PA-C [address] [place] [id number] documented as of this encounter Visit Diagnoses Diagnosis Restless legs syndrome (RLS) documented in this encounter Care Teams Fish Trapper Relationship Specialty Start Date End Date Shiraz Simeon PA-C [address] [place] [id number] PCP - General 03/02/16 documented as of this encounter
--- OUTSIDE RECORDS SUMMARY | 2023-07-18 20:34 | XMS_ITS | Encounter Summary ---
Author Name Unknown Organization [facility] Address [address] [place] [address] Care Team Providers Care Business Librarian Name Role Phone Shiraz Simeon PA-C Primary Care Provider [phone] Reason for Visit * Reason Comments Refill traMADol (ULTRAM) 50 MG tablet [Pharmacy Med Name: TRAMADOL 50MG TABLETS] Encounter Details Date Type Department Care Team Description 09/03/2022 Refill [facility] [address] [place] [id number] Shiraz Simeon PA-C [address] [place] [address] [address] [place] [id number] Refill (traMADol (ULTRAM) 50 MG tablet [Pharmacy [...] * Interface, Out Surescripts Prov Query - 09/03/2022 10:21 AM CST traMADol (ULTRAM) 50 MG tablet [Pharmacy Med Name: TRAMADOL 50MG TABLETS] Medication started: 12/16/2017 Last ordered by SHIRAZ SIMEON: 07/28/2022 (37 days ago) QTY: 90, Refills: 0, Sig: take 1 tablet (50mg) by mouth every 8 hours as needed for pain. (changed but equivalent) -> Medication cannot be delegated. Last qualifying visit: 03/14/2022 (with SHIRAZ SIMEON) Next scheduled visit: None [facility] Embedded Refills, Reference: [id number], 09/03/2022 10:21:02 AM PHYSICAL INTEGRATION PRACTITIONER, Pool: ARIANNE REFILL ([id number]) ICAL INTEGRATION PRACTITIONER * Interface, Out [employer] Prov Query - 09/03/2022 10:21 AM CST No Careplan note found by [employer]. ICAL INTEGRATION PRACTITIONER documented in this encounter Plan of Treatment Upcoming Encounters Date Type Department Care Team Description 07/31/2023 10:30 AM PHYSICAL INTEGRATION PRACTITIONER Telemedicine [facility] [address] [place] [address] Shiraz Simeon, PAMarielle [address] [place] [id number] documented as of this encounter Visit Diagnoses Diagnosis Chronic right-sided low back pain with right-sided sciatica documented in this encounter Care Teams Business Librarian Relationship Specialty Start Date End Date Shiraz Simeon PA-C [address] [place] [address] PCP - General 03/02/16 documented as of this encounter
--- OUTSIDE RECORDS SUMMARY | 2023-07-18 20:34 | XMS_ITS | Encounter Summary ---
Author Name Unknown Organization [facility] Address [address] [place] [address] Care Team Providers Care Speech And Language Assistant Name Role Phone Shiraz Simeon PA-C Primary Care Provider [phone] Reason for Visit * Reason Comments Refill sertraline (ZOLOFT) 100 MG tablet [Pharmacy Med Name: SERTRALINE 100MG TABLETS]; omeprazole (PRILOSEC) 20 MG capsule [Pharmacy Med Name: OMEPRAZOLE 20MG CAPSULES] Encounter Details Date Type Department Care Team Description 03/14/2023 Refill [facility] [address] [place] [address] Shiraz Simeon PA-C [address] [place] [id number] Refill (sertraline (ZOLOFT) 100 MG tablet [Pharmacy [...] as of this encounter Nursing Notes * Rosalva Mcfarlane - 03/14/2023 9:44 AM CDT Further Assistance Needed on Refill from Air Carrier Inspector Patient is due for Qualifying Visit Medication has been refilled for 90 day supply. Patient is due for an Office/Video Visit in the next 90 days. Call Patient and document using .GUDELIA. After attempting to schedule patient: Close encounter. Refill has already been processed per standing order. Requested Prescriptions Pending Prescriptions Disp Refills omeprazole (PRILOSEC) 20 MG capsule [Pharmacy Med Name: OMEPRAZOLE 20MG CAPSULES] 180 Capsule 0 Sig: TAKE 1 CAPSULE BY MOUTH TWICE DAILY BEFORE MEALS. TAKE 1 HOUR BEFORE A MEAL. sertraline (ZOLOFT) 100 MG tablet [Pharmacy Med Name: SERTRALINE 100MG TABLETS] 90 Tablet 0 Sig: TAKE 1 TABLET(100 MG) BY MOUTH DAILY * Interface, Out Surescripts Prov Query - 03/14/2023 3:31 AM CDT omeprazole (PRILOSEC) 20 MG capsule [Pharmacy Med Name: OMEPRAZOLE 20MG CAPSULES] Medication started: 12/16/2017 Last ordered by SHIRAZ SIMEON: 03/14/2022 (365 days ago) QTY: 180, Refills: 3, Sig: take 1 capsule (20 mg) by mouth two times a day before meals. take 1 hour before a meal. (changed but equivalent) -> An office visit is overdue (performed over 12 months ago, required every 12 months). -> Refill x 1 month (courtesy refill. overdue for an office visit) Last qualifying visit: 03/14/2022 (with SHIRAZ SIMEON) Next scheduled visit: None [facility] Embedded Refills, Reference: [id number], 03/14/2023 3:31:51 AM CDT, Pool: EAGEN REFILL ([id number]) sertraline (ZOLOFT) 100 MG tablet [Pharmacy Med Name: SERTRALINE 100MG TABLETS] Medication started: 12/16/2017 Last ordered by SHIRAZ SIMEON: 03/14/2022 (365 days ago) QTY: 90, Refills: 3, Sig: take 1 tablet (100 mg) by mouth daily. (changed but equivalent) -> An office visit is overdue (performed over 12 months ago, required every 12 months). -> Refill x 1 month (courtesy refill. overdue for an office visit) Last qualifying visit: 03/14/2022 (with SHIRAZ SIMEON) Next scheduled visit: None Age: 77 [facility] Embedded Refills, Reference: [id number], 03/14/2023 3:31:51 AM CDT, Pool: ARIANNE REFILL ([id number]) documented in this encounter Plan of Treatment Upcoming Encounters Date Type Department Care Team Description 07/31/2023 10:30 AM EXPORT TRAFFIC DEPARTMENT MANAGER Telemedicine [facility] [address] [place] [address] Shiraz Simeon PA-C [address] [id number] documented as of this encounter Visit Diagnoses Diagnosis History of gastric ulcer Personal history of other diseases of digestive system Generalized anxiety disorder (HRC) Generalized anxiety disorder documented in this encounter Care Teams Speech And Language Assistant Relationship Specialty Start Date End Date Shiraz Simeon PA-C [address] [place] [id number] PCP - General 03/02/16 documented as of this encounter
--- OUTSIDE RECORDS SUMMARY | 2023-07-18 20:34 | XMS_ITS | Encounter Summary ---
Author Name Unknown Organization [facility] Address [address] [place] [address] Care Team Providers Care Principal Gifts Officer Name Role Phone Shiraz Simeon PA-C Primary Care Provider [phone] Reason for Visit * Reason Onset Date Comments Refill 07/28/2022 traMADol (ULTRAM ) 50 MG tablet Encounter Details Date Type Department Care Team Description 07/28/2022 Refill [facility] [address] [facility] [place] [id number] Shiraz Simeon PA-C [address] [place] [address] Dr [place] [phone] Refill (traMADol (ULTRAM) 50 MG tablet) Social History Tobacco Use Types Packs/Day Years [...] * Interface, Out Surescripts Prov Query - 07/28/2022 10:15 AM CST traMADol (ULTRAM) 50 MG tablet Medication started: 12/16/2017 Last ordered by SHIRAZ SIMEON: 05/29/2022 (60 days ago) QTY: 90, Refills: 0, Sig: take 1 tablet (50mg) by mouth every 8 hours as needed for pain. (unchanged) -> Medication cannot be delegated. Last qualifying visit: 03/14/2022 (with SHIRAZ SIMEON) Next scheduled visit: None [employer] Embedded Refills, Reference: [id number], 07/28/2022 10:15:02 AM HELP DESK ASSISTANT, Pool: ARIANNE REFILL ([id number]) DESK ASSISTANT * Interface, Out OpinionLab Prov Query - 07/28/2022 10:15 AM CST No Careplan note found by Ordr.in. DESK ASSISTANT documented in this encounter Plan of Treatment Upcoming Encounters Date Type Department Care Team Description 07/31/2023 10:30 AM HELP DESK ASSISTANT Telemedicine [facility] [address] [place] [id number] Shiraz Simeon PA-C [address] [place] [id number] documented as of this encounter Visit Diagnoses Diagnosis Chronic right-sided low back pain with right-sided sciatica documented in this encounter Care Teams Principal Gifts Officer Relationship Specialty Start Date End Date Shiraz Simeon PA-C [address] [place] [id number] PCP - General 03/02/16 documented as of this encounter
--- OUTSIDE RECORDS SUMMARY | 2023-07-18 20:34 | XMS_ITS | Encounter Summary ---
Author Name Unknown Organization [facility] Address [address] [place] [address] Care Team Providers Care Mailing Jogger Name Role Phone Shiraz Simeon PA-C Primary Care Provider [phone] Reason for Visit * Reason Comments Refill traMADol (ULTRAM) 50 MG tablet [Pharmacy Med Name: TRAMADOL 50MG TABLETS] Encounter Details Date Type Department Care Team Description 10/23/2022 Refill [facility] [address] [place] [id number] Shiraz Simeon PA-C [address] [place] [address] [address] [place] [id number] Refill (traMADol (ULTRAM) 50 MG tablet [Pharmacy [...] * Interface, Out Surescripts Prov Query - 10/23/2022 10:04 AM CDT traMADol (ULTRAM) 50 MG tablet [Pharmacy Med Name: TRAMADOL 50MG TABLETS] Medication started: 12/16/2017 Last ordered by SHIRAZ SIMEON: 09/05/2022 (48 days ago) QTY: 90, Refills: 0, Sig: take 1 tablet(50 mg) by mouth every 8 hours as needed for pain (unchanged) -> Medication cannot be delegated. Last qualifying visit: 03/14/2022 (with SHIRAZ SIMEON) Next scheduled visit: None [employer] Embedded Refills, Reference: [id number], 10/23/2022 10:04:16 AM CDT, Pool: ARIANNE REFILL ([id number]) * Interface, Out [employer] Prov Query - 10/23/2022 10:04 AM CDT No Careplan note found by Bia. documented in this encounter Plan of Treatment Upcoming Encounters Date Type Department Care Team Description 07/31/2023 10:30 AM NCR OPERATOR Telemedicine [facility] [address] [place] [id number] Shiraz Simeon, PAMisbahC [address] [place] [phone] documented as of this encounter Visit Diagnoses Diagnosis Chronic right-sided low back pain with right-sided sciatica documented in this encounter Care Teams Mailing Jogger Relationship Specialty Start Date End Date Shiraz Simeon PA-C [address] [place], [place] [id number] PCP - General 03/02/16 documented as of this encounter
[2023-07-18 20:36] LABS: Lactate* 2.3 mmol/L (0.5-1.9)
[2023-07-18 20:36] LABS: PCR FLU A POSITIVE PCR FLU A (Negative); PCR FLU B Negative PCR FLU B (Negative); PCR RSV Negative PCR RSV (Negative); SARS PCR* Negative SARS-CoV-2 (Negative)
--- NOTE | 2023-07-18 20:36 | CRLHL7_ITS ---
For Patients: As a result of the Cures Act, medical imaging exams and procedure reports are released immediately into your electronic medical record. You may view this report before your referring provider. If you have questions, please contact your health care provider. INDICATION: Hypoxia. TECHNIQUE: Chest 1 view. COMPARISON: Chest radiograph 06/23/2021. FINDINGS: Patchy opacity in the left lung base suspicious for pneumonia. No pleural effusion or pneumothorax. Normal heart size. Mild pulmonary vascular congestion. Left convex thoracic curve. IMPRESSION: 1. Patchy opacity in the left lung base suspicious for pneumonia. 2. Mild pulmonary vascular congestion. Dictated by Trudi Lozano MD @ 07/18/2023 9:49:59 PM (Electronically Signed)
[2023-07-18] MEDS: 0.9 % SODIUM CHLORIDE 500 ML 500 ML IV ×2 (20:39→20:55)
[2023-07-18 20:46] LABS: Hematocrit 36.8 % (33.0-51.0); Hemoglobin* 11.4 gm/dL (12.0-16.0); Immature Granulocytes Abs Auto 0.05 K/uL (0.00-0.30); Immature Granulocytes Pct Auto 0.5 %; Mean Corpuscular HGB Conc 31 gm/dL (32-36); Mean Corpuscular Hemoglobin 27 pg (26-34); Mean Corpuscular Volume 87 fL (80-100); Monocytes Percent Auto 9.2 % (0.0-11.0); Neutrophils Percent Auto 87.3 % (42.0-72.0); Platelet Count* 211 K/uL (140-440); RDW Coefficient of Variation % 15.6 % (11.5-15.5); Red Blood Count 4.22 m/uL (4.00-5.20); White Blood Count* 9.36 K/uL (4.50-11.00)
[2023-07-18 20:54] LABS: Albumin* 3.7 g/dL (3.3-5.0); Chloride* 103 mmol/L (96-114)
[2023-07-18 20:55] LABS: Potassium* 3.3 mmol/L (3.6-5.1); Sodium* 134 mmol/L (135-149)
[2023-07-18 20:56] LABS: Slide Review Reflex No
[2023-07-18 20:57] LABS: Creatinine* 0.8 mg/dL (0.5-1.5); Estimated Glomerular Filt Rate 76 ml/min
[2023-07-18 20:58] LABS: Alanine Aminotransferase* 20 U/L (4-35); Alkaline Phosphatase* 146 U/L (40-150); Anion Gap 12 mEq/L (7-15); Aspartate Amino Transferase* 36 U/L (12-35); Bilirubin Total* 0.2 mg/dL (0.1-1.5); Blood Urea Nitrogen* 24 mg/dL (7-30); Calcium* 9.1 mg/dL (8.4-10.6); Carbon Dioxide* 19 mmol/L (20-32); Glucose* 172 mg/dL (60-115); Total Protein* 6.5 g/dL (6.0-8.3)
[2023-07-18 21:17] LABS: Troponin I* 0.02 ng/mL (0.01-0.04)
--- NOTE | 2023-07-18 21:38 | CRLHL7_ITS ---
For Patients: As a result of the Century Cures Act, medical imaging exams and procedure reports are released immediately into your electronic medical record. You may view this report before your referring provider. If you have questions, please contact your health care provider. INDICATION: Cough, fatigue. Low oxygen. TECHNIQUE: CT chest with 95 mL Isovue 370 IV contrast. COMPARISON: CT chest dated 06/03/2021. FINDINGS: Heart and vasculature: No cardiomegaly, no pericardial effusion. Within limitations of motion artifact, no filling defects identified within the main, lobar, and contrast opacified portions of the segmental pulmonary arteries. Multiple segmental pulmonary arteries are inadequately evaluated, as well as the subsegmental pulmonary arteries, particularly in the bilateral lower lobes. Lungs and pleura: Motion artifact. No evidence of pulmonary infarct. Multifocal patchy ground-glass opacities in the bilateral lower lobes, and dependent aspects of the right upper lobe and lingula. Thyroid and lower neck: No suspicious thyroid nodule. Mediastinum/peter: Few prominent mediastinal lymph nodes, may be reactive. Chest wall: No axillary lymphadenopathy. Upper abdomen: Poorly evaluated due to decreased signal to noise ratio. No acute abnormality identified. Bones: Multilevel degenerative changes of the spine. No suspicious/aggressive focal osseous lesion. IMPRESSION: 1. Limited study secondary to motion artifact. No central pulmonary embolus. 2. Multifocal patchy ground-glass opacities, worrisome for pneumonia. The distribution raises concern for aspiration. 3. Additional incidental findings as above. Please note that all CT scans at this facility use dose modulation, iterative reconstruction, and/or weight-based dosing when appropriate to reduce radiation dose to as low as reasonably achievable. Dictated by Yosef Luciano MD @ 07/19/2023 1:16:47 AM (Electronically Signed)
[2023-07-18 21:40] LABS: Magnesium* 1.7 mg/dL (1.5-2.6)
[2023-07-18 22:21] LABS: C Reactive Protein* 36.7 mg/dL (0.5-1.0)
[2023-07-18] MEDS: ACETAMINOPHEN 500 MG TABLET 1000 MG PO (23:43)
[2023-07-18] MEDS: 0.9 % SODIUM CHLORIDE 1000 ml 1,000 ML IV (23:53)
[2023-07-19] VITALS (19 sets, daily range): BP systolic 106–142; BP diastolic 65–91; PULSE 95–135; RESP 18–24; TEMP 36.9–38.4; O2SAT 92–106; BMI 17.6
[2023-07-19 00:05] LABS: Lactate* 1.1 mmol/L (0.5-1.9)
[2023-07-19 00:26] LABS: Troponin, Point-of-Care* 0.03 ng/ml (0.01-0.04)
[2023-07-19] MEDS: PIPERACILLIN/TAZOBACTAM 3.375 GM in 0.9 % SODIUM CHLORIDE Mini-bag 100 ML IVPB (01:31)
[2023-07-19] MEDS: OSELTAMIVIR PHOSPHATE 75 MG CAPSULE PO ×2 (01:50→09:27)
[2023-07-19 02:15] LABS: Procalcitonin* 2.45 ng/mL (<0.50)
--- NOTE | 2023-07-19 03:41 | W.PM.TELEH&P ---
Telehealth- H&P: HPI History of Present Illness Time Seen by Provider: 03:17 Date Seen: 07/19/23 Chief complaint: low oxygen, cough, fatigue Narrative: Shruti Corbin is seen as an Interactive Telehealth visit. Shruti Corbin is a 77 year old The past history of tobaccoism times many years quit a year ago, chronic back pain, restless leg syndrome, past history of gastric ulcer who presents with a 5-day history of respiratory illness dominated by myalgias cough sore throat productive cough fevers. Her son with whom she lives with also had similar illness in the same timeframe. She is not influenza vaccinated. Presented to the ER tonight with the above symptoms and found to be positive for influenza. Chest x-ray showing pneumonia. Cough is worse in the last 2 days with more production. Being admitted for influenza pneumonia. Patient was treated in the emergency room with oseltamavir and piperacillin tazobactam. She was profoundly tachycardic in the 140s regular narrow complex in the emergency room which improved after fluid bolus. She demonstrated hypoxia into the 80s improved with 3 L nasal cannula. Being admitted for influenza pneumonia. Review of Systems Status of ROS: Reports: 10 or more systems reviewed and unremarkable except as noted in History and below GI: Reports: diarrhea [facility] Medical History Elevated transaminase level ?R74.01 - Elevation of levels of liver transaminase levels (ICD-10) Acute hypoxemic respiratory failure ?J96.01 - Acute respiratory failure with hypoxia (ICD-10) History of gastric ulcer (01/31/12) ?Z87.11 - Personal history of peptic ulcer disease (ICD-10) SVT (supraventricular tachycardia) ?I47.1 - Supraventricular tachycardia (ICD-10) Hypokalemia ?E87.6 - Hypokalemia (ICD-10) Nephrolithiasis ?N20.0 - Calculus of kidney (ICD-10) Restless leg syndrome ?G25.81 - Restless legs syndrome (ICD-10) Generalized anxiety disorder ?F41.1 - Generalized anxiety disorder (ICD-10) Iron deficiency anemia ?D50.9 - Iron deficiency anemia, unspecified (ICD-10) Chronic back pain ?M54.9 - Dorsalgia, unspecified (ICD-10) ?G89.29 - Other chronic pain (ICD-10) Controlled substance agreement signed ?Z79.899 - Other oil heaterman (current) drug therapy (ICD-10) Gastric ulcer ?K25.9 - Gastric ulcer, unspecified as acute or chronic, without hemorrhage or perforation (ICD-10) Surgical History S/P YUNG-BSO ?Z90.710 - Acquired absence of both cervix and uterus (ICD-10) ?Z90.722 - Acquired absence of ovaries, bilateral (ICD-10) ?Z90.79 - Acquired absence of other genital organ(s) (ICD-10) Family History Mother Cataract Osteoarthritis PUD (peptic ulcer disease) Brother No problems noted. Brother High cholesterol High blood pressure Retinal detachment Sister AAA (abdominal aortic aneurysm) Renal failure Family/Other Myocardial infarction Social History Narrative: Quit smoking 1 year ago. Smoked 1/2-1ppd. Denies alcohol or recreational drugs. FULL CODE. What is your current living situation?: I presently have a place to live Problems where you live: no known problems Problems where you live details: n/a In the past 12 months, utilities in danger of being shut off: unable to answer In past 12 months, lack of transportation kept you from medical appts, meetings, work, or getting things needed for daily living: no In the past 12 mos, have been you worried that your food would run out before you had money to buy more?: never true In the past 12 mos, the food you bought just didn't last and you didn't have money to buy more?: never true Smoking Status: Former smoker Nicotine containing products detail: quit 1 year ago 2020 Second hand tobacco smoke exposure: No How often do you have a drink containing alcohol: never AUDIT-C Alcohol total score: 0 Non-prescribed substance use: denies use Caffeine: No How often does anyone, including family, friends and others, physically hurt you: never How often does anyone, including family, friends and others, insult or talk down to you: never How often does anyone, including family, friends and others, threaten you with harm: never How often does anyone, including family, friends and others, scream or curse at you: never Little interest or pleasure in doing things: not at all Feeling down, depressed, or hopeless: not at all Meds Home Medications and Allergies Home Medications Medication Instructions Recorded Confirmed Type gabapentin 400 mg capsule See Rx Instructions .Route 05/31/22 07/18/23 History .COMPLEX PRN restless leg(s) omeprazole 20 mg capsule,delayed 20 mg PO DAILY 05/31/22 07/18/23 History release sertraline 100 mg tablet 100 mg PO DAILY 05/31/22 07/18/23 History tramadol 50 mg tablet 50 mg PO Q8H 05/31/22 07/18/23 History Allergies Allergy/AdvReac Type Severity Reaction Status Date / Time ferrous sulfate Allergy Unknown Nausea Verified 07/18/23 21:50 Exam Narrative Exam Narrative: Physical Exam GENERAL: ?vital signs reviewed, Heart rate has resolved down to 105 from 140 predominantly regular with occasional variability. She is hard of hearing but pleasant no distress HEENT: pupils are equal round and reactive to light, extraocular movements are grossly within normal limits and oral mucosa is moist. NECK: Supple without lymphadenopathy or thyromegaly according to nursing staff examination observation HEART: tachy 105 possible soft sytolic murmur obsured by loud ronchi LUNGS: Tachycardic 105 predominantly regular possible soft coarse rhonchi particularly right middle right lower but some on the left as well in the lower lung webster no wheezing no retractions ABDOMEN: Observation from nurse assisted exam, abdomen appears soft, nontender, and nondistended with Positive bowel sounds noted. EXTREMITIES: Strength and sensation is observed to be grossly within normal limits in the upper and lower extremities.? No focal strength deficit is observed. SKIN:? Observed warm and dry with color normal Const Vital Signs, click to edit/add: Vital Signs - 24 hr 07/18/23 19:51 07/18/23 20:13 07/18/23 20:15 Temperature 101.1 F H Pulse Rate 133 H 135 H Pulse Rate [Pulse Oximeter] 144 H Respiratory Rate 30 H Blood Pressure Blood Pressure [Right Arm] Blood Pressure [Right Upper Arm] 112/73 Pulse Oximetry 92 91 91 Oxygen Delivery Method Room Air Oxygen Flow Rate 07/18/23 20:30 07/18/23 20:41 07/18/23 20:45 Temperature Pulse Rate 132 H 139 H 147 H Pulse Rate [Pulse Oximeter] Respiratory Rate Blood Pressure 159/89 H Blood Pressure [Right Arm] Blood Pressure [Right Upper Arm] Pulse Oximetry 91 90 90 Oxygen Delivery Method Oxygen Flow Rate 07/18/23 21:00 07/18/23 21:02 07/18/23 21:15 Temperature Pulse Rate 143 H 133 H 128 H Pulse Rate [Pulse Oximeter] Respiratory Rate Blood Pressure 132/75 Blood Pressure [Right Arm] Blood Pressure [Right Upper Arm] Pulse Oximetry 92 92 91 Oxygen Delivery Method Room Air Oxygen Flow Rate 07/18/23 21:30 07/18/23 21:41 07/18/23 21:45 Temperature Pulse Rate 129 H 137 H 136 H Pulse Rate [Pulse Oximeter] Respiratory Rate Blood Pressure 152/80 H Blood Pressure [Right Arm] Blood Pressure [Right Upper Arm] Pulse Oximetry 91 91 91 Oxygen Delivery Method Oxygen Flow Rate 07/18/23 22:02 07/18/23 22:26 07/18/23 22:30 Temperature Pulse Rate 144 H 141 H 132 H Pulse Rate [Pulse Oximeter] Respiratory Rate Blood Pressure 162/93 H Blood Pressure [Right Arm] Blood Pressure [Right Upper Arm] Pulse Oximetry 93 91 91 Oxygen Delivery Method Oxygen Flow Rate 07/18/23 22:42 07/18/23 22:43 07/18/23 22:45 Temperature Pulse Rate 140 H 140 H 138 H Pulse Rate [Pulse Oximeter] Respiratory Rate Blood Pressure 147/86 H Blood Pressure [Right Arm] Blood Pressure [Right Upper Arm] Pulse Oximetry 91 90 90 Oxygen Delivery Method Oxygen Flow Rate 07/18/23 23:00 07/18/23 23:02 07/18/23 23:15 Temperature Pulse Rate 144 H 142 H 145 H Pulse Rate [Pulse Oximeter] Respiratory Rate Blood Pressure 140/78 H Blood Pressure [Right Arm] Blood Pressure [Right Upper Arm] Pulse Oximetry 89 89 89 Oxygen Delivery Method Oxygen Flow Rate 07/18/23 23:22 07/18/23 23:30 07/18/23 23:42 Temperature 102.6 F H Pulse Rate 148 H 136 H 135 H Pulse Rate [Pulse Oximeter] Respiratory Rate 26 H Blood Pressure 131/63 133/74 Blood Pressure [Right Arm] Blood Pressure [Right Upper Arm] Pulse Oximetry 87 L 92 92 Oxygen Delivery Method OxyMask Oxygen Flow Rate 2 07/18/23 23:45 07/19/23 00:00 07/19/23 00:15 Temperature 101.1 F H Pulse Rate 125 H 122 H 128 H Pulse Rate [Pulse Oximeter] Respiratory Rate Blood Pressure Blood Pressure [Right Arm] Blood Pressure [Right Upper Arm] Pulse Oximetry 92 94 94 Oxygen Delivery Method OxyMask OxyMask OxyMask Oxygen Flow Rate 2 2 2 07/19/23 00:22 07/19/23 00:41 07/19/23 01:02 Temperature Pulse Rate 119 H 133 H 132 H Pulse Rate [Pulse Oximeter] Respiratory Rate Blood Pressure 142/77 H 134/74 119/65 Blood Pressure [Right Arm] Blood Pressure [Right Upper Arm] Pulse Oximetry 94 94 94 Oxygen Delivery Method OxyMask OxyMask Oxygen Flow Rate 2 2 07/19/23 01:15 07/19/23 01:22 07/19/23 01:30 Temperature Pulse Rate 135 H 133 H 134 H Pulse Rate [Pulse Oximeter] Respiratory Rate Blood Pressure 127/75 Blood Pressure [Right Arm] Blood Pressure [Right Upper Arm] Pulse Oximetry 93 94 95 Oxygen Delivery Method Oxygen Flow Rate 07/19/23 01:31 07/19/23 01:41 07/19/23 02:01 Temperature 99.0 F Pulse Rate 129 H Pulse Rate [Pulse Oximeter] Respiratory Rate Blood Pressure 127/88 Blood Pressure [Right Arm] Blood Pressure [Right Upper Arm] Pulse Oximetry 92 94 Oxygen Delivery Method Oxygen Flow Rate 07/19/23 02:01 07/19/23 02:16 Temperature 98.6 F Pulse Rate Pulse Rate [Pulse Oximeter] 98 Respiratory Rate 24 Blood Pressure Blood Pressure [Right Arm] 106/91 H Blood Pressure [Right Upper Arm] Pulse Oximetry 92 106 H Oxygen Delivery Method OxyMask Nasal Cannula Oxygen Flow Rate 2 3 Hospitalist - H&P: Result Labs Labs: Short CBC 07/18/23 Range/Units 20:25 WBC 9.36 (4.50-11.00) K/uL Hgb 11.4 L (12.0-16.0) gm/dL Hct 36.8 (33.0-51.0) % Plt Count 211 (140-440) K/uL BMP 07/18/23 20:25 Sodium 134 L Potassium 3.3 L Chloride 103 Carbon Dioxide 19 L BUN 24 Creatinine 0.8 Glucose 172 H Calcium 9.1 Cardiac Enzymes 07/18/23 Range/Units 20:25 Troponin I 0.02 (0.01-0.04) ng/mL Liver Function 07/18/23 Range/Units 20:25 Total Bilirubin 0.2 (0.1-1.5) mg/dL AST 36 H (12-35) U/L ALT 20 (4-35) U/L Alkaline Phosphatase 146 (40-150) U/L Albumin 3.7 (3.3-5.0) g/dL ECG ECG interpretation date: 07/19/23 ECG interpretation time: 03:55 Prior ECG tracings: available for review Interpretation: sinus tach narrow complex QRS rate 132, QT corrected 0.44. [place] [address] scan - chest: Radiologist's impression: 1. Limited study secondary to motion artifact. No central pulmonary embolus. 2. Multifocal patchy ground-glass opacities, worrisome for pneumonia. The distribution raises concern for aspiration. 3. Additional incidental findings as above. Please note that all CT scans at this facility use dose modulation, iterative reconstruction, and/or weight-based dosing when appropriate to reduce radiation dose to as low as reasonably achievabl Assessment and Plan Assessment and plan (1) Hypokalemia: Status: Acute (2) Influenza A: Status: Acute Plan 77-year-old with recent history signs and symptoms and laboratory data confirming influenza A pneumonia. Duration of illness 5 days. Has received oseltamivir and piperacillin tazobactam in the ER. Given her history of longstanding tobaccoism with likely underlying chronic lung disease and her elevated CRP agree with treating with antibiotics for community-acquired pneumonia on top of influenza. CODE STATUS is full. DVT prophylaxis will be enoxaparin. Mild hypokalemia will be treated with oral potassium supplements. Continue gentle hydration. Telemetry. Telehealth: Statement Statement Telehealth Visit: Today's History and Physical is provided via interactive telehealth by Matthew Can MD.? Patient is located at [facility].? Provider is located at [facility].? Nursing staff assisted with the patient's exam. The visit being done today meets criteria for a telehealth visit and the patient or patient?s parent/guardian is aware the visit is a telehealth visit. Camera Start Time: 03:17 Camera End Time: 03:19
[2023-07-19] MEDS: POTASSIUM BICARB 25 MEQ EFFERVESCENT TAB 50 MEQ PO (04:08)
[2023-07-19] MEDS: GABAPENTIN 300 MG CAPSULE 1200 MG PO ×2 (05:04→21:20)
[2023-07-19] MEDS: TRAMADOL HCL 50 MG TABLET PO (05:05)
[2023-07-19] MEDS: POTASSIUM CHLORIDE 10 MEQ CAPSULE ER 20 MEQ PO (05:05)
[2023-07-19] MEDS: 0.9 % SODIUM CHLORIDE 1000 ml 1,000 ML 75 ML IV (05:12)
[2023-07-19] MEDS: cefTRIAXone 2 GM in 0.9 % SODIUM CHLORIDE Mini-bag 100 ML IVPB (05:12)
[2023-07-19] MEDS: 0.9 % SODIUM CHLORIDE 500 ML 500 ML IV (07:18)
--- NOTE | 2023-07-19 08:59 | PC.NURSE ---
Patient arrived to Med/Surg at approximately 02:05 accompanied by her son. Patient pleasant, alert and oriented. Uses bedpan. Denied pain. HR 105-129. Dr Can updated and new orders were obtained for bolus IV fluids. Son stayed through the night.
[2023-07-19] MEDS: DOXYCYCLINE HYCLATE 100 MG PO ×2 (09:26→21:21)
[2023-07-19] MEDS: 0.9 % SODIUM CHLORIDE 1000 ml 1,000 ML 150 ML IV ×2 (09:27→15:23)
--- NOTE | 2023-07-19 13:05 | PC.NURSE ---
Occasional tachycardic, otherwise VSS. RA w/ saturations low 90s. Denies pain. Frequent productive cough- sputum sample sent, ordered guaifenisen. LS coarse, crackles heard in right base. Denies SOB. Needs encouragement to drink, did have jello and cake, strawberries, and ice cream for lunch. Large incontinent void x2. Small incontinent smear x1. Weak, but did stand at the edge of bed for me to get weight. Fatigued quickly. PIV w/ NS @ 150 cc/hr. Will continue to monitor, follow POC, and keep pt and family updated. Hortencia Ye RN
[2023-07-19] MEDS: guaiFENesin 100 MG/ML CUP PO ×2 (14:02→21:20)
--- NOTE | 2023-07-19 14:35 | NUTR.NU ---
RDn with nutrition screen related to underweight BMI and MST positive for eating poorly. RDN has attempted multiple times to visit with patient, was not available on all attempts. Will attempt to visit at later date.
--- NOTE | 2023-07-19 16:06 | PM.IMPN1 ---
Progress Note: A&P Assessment and plan (1) Hypokalemia: Problem details: - monitor and replace. Status: Acute (2) Influenza A: Problem details: - oseltamivir Status: Acute (3) Weakness: Problem details: - due to influenza a - will have Physical therapy and Occupational therapy work with patient Status: Acute (4) Pneumonia: Problem details: - in association with influenza a, consider viral pneumonia versus community-acquired pneumonia versus aspiration pneumonia. - treating with IV Zosyn. - will ask for bedside swallow assessment. Status: Acute (5) Hypoxia: Problem details: - hypoxic on presentation on 07/19/2023 requiring low-flow oxygen support, resolved by the afternoon of 07/19/2023. Status: Acute Plan 1. Reviewed impression with patient and daughter. 2. Answered their questions. 3. They agree with above stated plans and recommendations. Time Spent With Patient Total time spent: 40 minutes Subjective Date Seen: 07/19/23 Interval history: Admission history and physical history of present illness: ?Shruti Corbin is seen as an Interactive Telehealth visit. Shruti Corbin is a 77 year old The past history of tobaccoism times many years quit a year ago, chronic back pain, restless leg syndrome, past history of gastric ulcer who presents with a 5-day history of respiratory illness dominated by myalgias cough sore throat productive cough fevers. Her son with whom she lives with also had similar illness in the same timeframe. She is not influenza vaccinated. [facility] and found to be positive for influenza. Chest x-ray showing pneumonia. Cough is worse in the last 2 days with more production. Being admitted for influenza pneumonia. Patient was treated in the emergency room with oseltamavir and piperacillin tazobactam. She was profoundly tachycardic in the 140s regular narrow complex in the emergency room which improved after fluid bolus. She demonstrated hypoxia into the 80s improved with 3 L nasal cannula. Being admitted for influenza pneumonia.? Hospital day 1. Generally feels improved. Still rather weak. Satisfied with level of improvement nevertheless. Still has not gained her usual appetite. Exam Narrative: Exam Narrative: Patient examined in her hospital room. Appears thin and cachectic. Vision and hearing are adequate. Alert and oriented to self, place, time, situation. Friendly and cooperative. No focal motor neurologic deficits. Generalized weakness. Lungs with scattered rhonchi and bibasilar end inspiratory rales. Heart tones with regular rhythm, normal S1-S2, without murmur, gallop, rub. Still tachycardic but no longer the 140s, now with the low 100s. Abdomen benign. Extremities without edema. Const: Vital Signs, click to edit/add: Vital Signs - 24 hr 07/18/23 19:51 07/18/23 20:13 07/18/23 20:15 Temperature 101.1 F H Pulse Rate 133 H 135 H Pulse Rate [Pulse Oximeter] 144 H Respiratory Rate 30 H Blood Pressure Blood Pressure [Ri ght Arm] Blood Pressure [Ri ght Upper Arm] 112/73 Pulse Oximetry 92 91 91 Oxygen Delivery Me thod Room Air Oxygen Flow Rate 07/18/23 20:30 07/18/23 20:41 07/18/23 20:45 Temperature Pulse Rate 132 H 139 H 147 H Pulse Rate [Pulse Oximeter] Respiratory Rate Blood Pressure 159/89 H Blood Pressure [Ri ght Arm] Blood Pressure [Ri ght Upper Arm] Pulse Oximetry 91 90 90 Oxygen Delivery Me thod Oxygen Flow Rate 07/18/23 21:00 07/18/23 21:02 07/18/23 21:15 Temperature Pulse Rate 143 H 133 H 128 H Pulse Rate [Pulse Oximeter] Respiratory Rate Blood Pressure 132/75 Blood Pressure [Ri ght Arm] Blood Pressure [Ri ght Upper Arm] Pulse Oximetry 92 92 91 Oxygen Delivery Me thod Room Air Oxygen Flow Rate 07/18/23 21:30 07/18/23 21:41 07/18/23 21:45 Temperature Pulse Rate 129 H 137 H 136 H Pulse Rate [Pulse Oximeter] Respiratory Rate Blood Pressure 152/80 H Blood Pressure [Ri ght Arm] Blood Pressure [Ri ght Upper Arm] Pulse Oximetry 91 91 91 Oxygen Delivery Me thod Oxygen Flow Rate 07/18/23 22:02 07/18/23 22:26 07/18/23 22:30 Temperature Pulse Rate 144 H 141 H 132 H Pulse Rate [Pulse Oximeter] Respiratory Rate Blood Pressure 162/93 H Blood Pressure [Ri ght Arm] Blood Pressure [Ri ght Upper Arm] Pulse Oximetry 93 91 91 Oxygen Delivery Me thod Oxygen Flow Rate 07/18/23 22:42 07/18/23 22:43 07/18/23 22:45 Temperature Pulse Rate 140 H 140 H 138 H Pulse Rate [Pulse Oximeter] Respiratory Rate Blood Pressure 147/86 H Blood Pressure [Ri ght Arm] Blood Pressure [Ri ght Upper Arm] Pulse Oximetry 91 90 90 Oxygen Delivery Me thod Oxygen Flow Rate 07/18/23 23:00 07/18/23 23:02 07/18/23 23:15 Temperature Pulse Rate 144 H 142 H 145 H Pulse Rate [Pulse Oximeter] Respiratory Rate Blood Pressure 140/78 H Blood Pressure [Ri ght Arm] Blood Pressure [Ri ght Upper Arm] Pulse Oximetry 89 89 89 Oxygen Delivery Me thod Oxygen Flow Rate 07/18/23 23:22 07/18/23 23:30 07/18/23 23:42 Temperature 102.6 F H Pulse Rate 148 H 136 H 135 H Pulse Rate [Pulse Oximeter] Respiratory Rate 26 H Blood Pressure 131/63 133/74 Blood Pressure [Ri ght Arm] Blood Pressure [Ri ght Upper Arm] Pulse Oximetry 87 L 92 92 Oxygen Delivery Me thod OxyMask Oxygen Flow Rate 2 07/18/23 23:45 07/19/23 00:00 07/19/23 00:15 Temperature 101.1 F H Pulse Rate 125 H 122 H 128 H Pulse Rate [Pulse Oximeter] Respiratory Rate Blood Pressure Blood Pressure [Ri ght Arm] Blood Pressure [Ri ght Upper Arm] Pulse Oximetry 92 94 94 Oxygen Delivery Me thod OxyMask OxyMask OxyMask Oxygen Flow Rate 2 2 2 07/19/23 00:22 07/19/23 00:41 07/19/23 01:02 Temperature Pulse Rate 119 H 133 H 132 H Pulse Rate [Pulse Oximeter] Respiratory Rate Blood Pressure 142/77 H 134/74 119/65 Blood Pressure [Ri ght Arm] Blood Pressure [Ri ght Upper Arm] Pulse Oximetry 94 94 94 Oxygen Delivery Me thod OxyMask OxyMask Oxygen Flow Rate 2 2 07/19/23 01:15 07/19/23 01:22 07/19/23 01:30 Temperature Pulse Rate 135 H 133 H 134 H Pulse Rate [Pulse Oximeter] Respiratory Rate Blood Pressure 127/75 Blood Pressure [Ri ght Arm] Blood Pressure [Ri ght Upper Arm] Pulse Oximetry 93 94 95 Oxygen Delivery Me thod Oxygen Flow Rate 07/19/23 01:31 07/19/23 01:41 07/19/23 02:01 Temperature 99.0 F Pulse Rate 129 H Pulse Rate [Pulse Oximeter] Respiratory Rate Blood Pressure 127/88 Blood Pressure [Ri ght Arm] Blood Pressure [Ri ght Upper Arm] Pulse Oximetry 92 94 Oxygen Delivery Me thod Oxygen Flow Rate 07/19/23 02:01 07/19/23 02:16 07/19/23 05:00 Temperature 98.6 F Pulse Rate Pulse Rate [Pulse Oximeter] 98 Respiratory Rate 24 Blood Pressure Blood Pressure [Ri ght Arm] 106/91 H 132/87 Blood Pressure [Ri ght Upper Arm] Pulse Oximetry 92 106 H Oxygen Delivery Me thod OxyMask Nasal Cannula Oxygen Flow Rate 2 3 07/19/23 05:35 07/19/23 07:00 07/19/23 07:00 Temperature 98.6 F Pulse Rate 124 H 106 H Pulse Rate [Pulse Oximeter] 121 H Respiratory Rate 18 Blood Pressure Blood Pressure [Ri ght Arm] 120/71 Blood Pressure [Ri ght Upper Arm] Pulse Oximetry 95 Oxygen Delivery Me thod Room Air Oxygen Flow Rate 07/19/23 11:00 07/19/23 15:00 07/19/23 15:00 Temperature 98.4 F 98.5 F Pulse Rate Pulse Rate [Pulse Oximeter] 102 H 95 Respiratory Rate 20 20 20 Blood Pressure Blood Pressure [Ri ght Arm] 126/79 118/70 Blood Pressure [Ri ght Upper Arm] Pulse Oximetry 92 92 Oxygen Delivery Me thod Room Air Room Air Oxygen Flow Rate 07/19/23 15:25 Temperature Pulse Rate 114 H Pulse Rate [Pulse Oximeter] Respiratory Rate Blood Pressure Blood Pressure [Ri ght Arm] Blood Pressure [Ri ght Upper Arm] Pulse Oximetry Oxygen Delivery Me thod Oxygen Flow Rate Labs Labs: Laboratory Results - last 24 hr 07/18/23 07/18/23 07/18/23 19:50 20:25 20:52 WBC 9.36 RBC 4.22 Hgb 11.4 L Hct 36.8 MCV 87 MCH 27 MCHC 31 L RDW Coeff of William 15.6 H Plt Count 211 Neut % (Auto) 87.3 H Lymph % (Auto) 3.0 L [place] % (Auto) 9.2 Eos % (Auto) 0.0 Baso % (Auto) 0.0 Neut # (Auto) 8.20 H Lymph # (Auto) 0.30 L [place] # (Auto) 0.90 Eos # (Auto) 0.00 Baso # (Auto) 0.00 Abs Immat Gran (auto) 0.05 Imm/Tot Granulo (auto) 0.5 D-Dimer Quant (PE/DVT) 1.00 H Sodium 134 L Potassium 3.3 L Chloride 103 Carbon Dioxide 19 L Anion Gap 12 BUN 24 Creatinine 0.8 Estimated Creat Clear 37.70 Estimated GFR 76 Glucose 172 H Lactate 2.3 H Calcium 9.1 Magnesium 1.7 Total Bilirubin 0.2 AST 36 H ALT 20 Alkaline Phosphatase 146 Troponin I 0.02 C-Reactive Protein 36.7 H Total Protein 6.5 Albumin 3.7 Procalcitonin SARS-CoV-2 (PCR) Negative SARS-CoV-2 Influenza Type A (PCR) POSITIVE PCR FLU A A Influenza Type B (PCR) Negative PCR FLU B RSV (PCR) Negative PCR RSV Lab Acknowledgement Test Added POC Troponin I 07/19/23 07/19/23 00:00 00:01 WBC RBC Hgb Hct MCV MCH MCHC RDW Coeff of William Plt Count Neut % (Auto) Lymph % (Auto) [place] % (Auto) Eos % (Auto) Baso % (Auto) Neut # (Auto) Lymph # (Auto) [place] # (Auto) Eos # (Auto) Baso # (Auto) Abs Immat Gran (auto) Imm/Tot Granulo (auto) D-Dimer Quant (PE/DVT) Sodium Potassium Chloride Carbon Dioxide Anion Gap BUN Creatinine Estimated Creat Clear Estimated GFR Glucose Lactate 1.1 Calcium Magnesium Total Bilirubin AST ALT Alkaline Phosphatase Troponin I C-Reactive Protein Total Protein Albumin Procalcitonin 2.45 H SARS-CoV-2 (PCR) Influenza Type A (PCR) Influenza Type B (PCR) RSV (PCR) Lab Acknowledgement POC Troponin I 0.[address] scan - chest: Attestation: I have reviewed the pertinent imaging results. Radiologist's impression: 1. Limited study secondary to motion artifact. No central pulmonary embolus. 2. Multifocal patchy ground-glass opacities, worrisome for pneumonia. The distribution raises concern for aspiration.
[2023-07-19] MEDS: ACETAMINOPHEN 325 MG TABLET 650 MG PO (21:20)
[2023-07-19] MEDS: SODIUM CHLORIDE 0.9 % (FLUSH) 10 ML SYRINGE 5 ML IVF (21:20)
[2023-07-19] MEDS: ENOXAPARIN 40 MG/0.4 ML INJ SUBCUT (21:20)
[2023-07-19] MEDS: OSELTAMIVIR 30 MG CAPSULE PO (21:21)
[2023-07-20] VITALS (8 sets, daily range): BP systolic 139–169; BP diastolic 75–99; PULSE 90–107; RESP 18–22; TEMP 36.3–36.9; O2SAT 91–96; BMI 18.5
--- NOTE | 2023-07-20 00:20 | PC.NURSE ---
End of care [id number]: Pt A&O x4 and VSS. Incontinent of B&B, brief changed once with a BM smear. Pt c/o headache so PRN Tyl was given x1 dose @ 2119 along with mucinex cough syrup. Pt's son, Merlin, attentive at bedside. TELE reads ST in the low 100s. PIV in left FA infusing NS @ 75 mL/hr.
[2023-07-20] MEDS: 0.9 % SODIUM CHLORIDE 1000 ml 1,000 ML 75 ML IV (02:55)
[2023-07-20] MEDS: cefTRIAXone 2 GM in 0.9 % SODIUM CHLORIDE Mini-bag 100 ML IVPB (05:19)
[2023-07-20 06:47] LABS: HCO3 VBG 25 mmol/L (21-28); Lactate* 0.6 mmol/L (0.5-1.9); PCO2 VBG 37 mmHG (40-50); pH VBG 7.439 (7.32-7.43)
[2023-07-20 06:50] LABS: Hematocrit 30.1 % (33.0-51.0); Hemoglobin* 9.1 gm/dL (12.0-16.0); Mean Corpuscular HGB Conc 30 gm/dL (32-36); Mean Corpuscular Hemoglobin 27 pg (26-34); Mean Corpuscular Volume 88 fL (80-100); Platelet Count* 169 K/uL (140-440); Red Blood Count 3.43 m/uL (4.00-5.20)
[2023-07-20 07:04] LABS: Slide Review Reflex No
[2023-07-20 07:11] LABS: Chloride* 111 mmol/L (96-114); Potassium* 3.4 mmol/L (3.6-5.1); Sodium* 139 mmol/L (135-149)
[2023-07-20 07:13] LABS: Creatinine* 0.5 mg/dL (0.5-1.5); Est. Creatinine Clearance* 35.38; Estimated Glomerular Filt Rate 97 ml/min
[2023-07-20 07:15] LABS: Anion Gap 4 mEq/L (7-15); Blood Urea Nitrogen* 7 mg/dL (7-30); Calcium* 8.4 mg/dL (8.4-10.6); Carbon Dioxide* 24 mmol/L (20-32); Glucose* 92 mg/dL (60-115); Magnesium* 1.5 mg/dL (1.5-2.6); Phosphorus* 3.1 mg/dL (2.5-4.5)
[2023-07-20 08:01] LABS: C Reactive Protein* 31.6 mg/dL (0.5-1.0); NT Pro B Type NatriureticPept* 1070 pg/mL
[2023-07-20] MEDS: OSELTAMIVIR 30 MG CAPSULE PO ×2 (09:42→21:45)
[2023-07-20] MEDS: DOXYCYCLINE HYCLATE 100 MG PO ×2 (09:42→21:45)
[2023-07-20] MEDS: IPRAT-ALBUT 0.5-2.5 MG/3 ML NEB 1 NEB IH ×3 (11:59→23:43)
[2023-07-20] MEDS: POTASSIUM BICARB 25 MEQ EFFERVESCENT TAB PO ×2 (12:00→17:49)
[2023-07-20] MEDS: predniSONE 20 MG TABLET 40 MG PO (15:01)
--- NOTE | 2023-07-20 16:44 | P.IMPN_ITS ---
Progress Note: A&P Assessment and plan (1) Pneumonia: Problem details: - in association with influenza a, consider viral pneumonia versus community- acquired pneumonia versus aspiration pneumonia. - treating community-acquired pneumonia with doxycycline and ceftriaxone Status: Acute (2) Influenza A: Problem details: - oseltamivir Status: Acute (3) COPD exacerbation: Problem details: History of smoking and now with wheezing in association with influenza pneumonia Status: Suspected (4) Anemia: Problem details: Iron deficiency anemia, patient did not follow-up last year. Continue to monitor. Inpatient verses outpatient evaluation. History of upper GI bleeding and H pylori infection Status: Acute (5) Poor appetite: Problem details: Stop maintenance fluids and assess her ability to take in p.o. food and fluid. Medications and current illness likely contributed to to loss of appetite Status: Acute (6) Hypokalemia: Problem details: - monitor and replace. Status: Acute (7) Hypoxia: Problem details: - hypoxic on presentation on 07/19/2023 requiring low-flow oxygen support, resolved by the afternoon of 07/19/2023. Status: Acute Plan Patient continued in the hospital for monitoring and management of pneumonia, poor oral intake, anemia, weakness Time Spent With Patient Total time spent: Total time spent today is 60 minutes, 40 minutes in coordination of care and discussing with patient, son and other providers ongoing evaluation management of these problems. Subjective Date Seen: 07/20/23 Interval history: 77-year-old female admitted to the hospital with a 5 day history of respiratory illness including myalgias, dyspnea, congestion, cough, sore throat, fever. She lives with her son was had similar illness. On admission she was diagnosed with influenza a as well as a diffuse patchy pneumonia. She has been treated with Tamiflu, doxycycline and ceftriaxone. She reports feeling some better today. She was initially requiring oxygen on admission but now has been off oxygen for the last day. She has had very little p.o. food and fluid. She reports a very poor appetite. She has been on maintenance IV fluids for this. She has a history of smoking and quit about 3 years ago. She does not have a history of COPD diagnosis. She has not been treated with inhaled bronchodilators in the past Exam Narrative: Exam Narrative: She is alert and appears in no distress. She is tired appearing. Oropharynx is normal. Respirations are notable for relatively diffuse crackles and also some wheezes. She has mildly prolonged expiratory phase. No consolidation Const: Vital Signs, click to edit/add: Vital Signs - 24 hr 07/19/23 19:00 07/20/23 01:20 07/20/23 01:20 Temperature 98.4 F Pulse Rate 107 H Pulse Rate [Bilate ral Dorsalis Pedis ] Pulse Rate [Pulse Oximeter] 106 H 94 Respiratory Rate 18 18 Blood Pressure [Ri ght Arm] 137/78 Pulse Oximetry 92 Oxygen Delivery Me thod Room Air 07/20/23 01:20 07/20/23 03:00 07/20/23 07:00 Temperature 98.4 F 98.5 F 97.9 F Pulse Rate Pulse Rate [Bilate ral Dorsalis Pedis ] 98 Pulse Rate [Pulse Oximeter] 94 100 Respiratory Rate 18 18 18 Blood Pressure [Ri ght Arm] 139/82 152/91 H 150/76 H Pulse Oximetry 93 96 91 Oxygen Delivery Me thod Room Air Room Air Room Air 07/20/23 11:00 07/20/23 15:05 Temperature 97.8 F 97.4 F L Pulse Rate Pulse Rate [Bilate ral Dorsalis Pedis ] 91 101 H Pulse Rate [Pulse Oximeter] Respiratory Rate 22 20 Blood Pressure [Ri ght Arm] 169/99 H 147/82 H Pulse Oximetry 93 93 Oxygen Delivery Me thod Room Air Room Air Documenting provider has reviewed patient's vital signs: yes Labs Labs: Laboratory Results - last 24 hr 07/20/23 05:50 WBC 6.40 RBC 3.43 L Hgb 9.1 L Hct 30.1 L MCV 88 MCH 27 MCHC 30 L Plt Count 169 VBG pH 7.439 H VBG pCO2 37 L VBG pO2 64.0 H VBG HCO3 25 Sodium 139 Potassium 3.4 L Chloride 111 Carbon Dioxide 24 Anion Gap 4 L BUN 7 Creatinine 0.5 Estimated Creat Clear 35.38 Estimated GFR 97 Glucose 92 Lactate 0.6 Calcium 8.4 Phosphorus 3.1 Magnesium 1.5 C-Reactive Protein 31.6 H NT-Pro-B Natriuret Pep 1070 Procalcitonin 1.70 H
--- NOTE | 2023-07-20 18:07 | PC.NURSE ---
shift note: vss stable. pt afeb. pt has moist non productive cough.LS with exp rhonchi. pt states she felt nauseated this afternoon., Pt incont of urine lg amounts. Pt had sm loose continent BM. coccyx skin slightly red. IV patent
[2023-07-20] MEDS: LIDOCAINE 5% PATCH 1 PATCH TRANSDERMA (21:44)
[2023-07-20] MEDS: GABAPENTIN 300 MG CAPSULE 1200 MG PO (21:44)
[2023-07-20] MEDS: ENOXAPARIN 40 MG/0.4 ML INJ SUBCUT (21:45)
[2023-07-20] MEDS: SODIUM CHLORIDE 0.9 % (FLUSH) 10 ML SYRINGE 5 ML IVF (21:45)
[2023-07-21 03:00] VITALS: BP 134/86; PULSE 94; RESP 20; TEMP 36.3; O2SAT 92
[2023-07-21 04:15] VITALS: BP 134/86; PULSE 94; RESP 20; TEMP 36.3; O2SAT 92
[2023-07-21] MEDS: SODIUM CHLORIDE 0.9 % (FLUSH) 10 ML SYRINGE 5 ML IVF ×2 (04:56→09:34)
[2023-07-21] MEDS: cefTRIAXone 2 GM in 0.9 % SODIUM CHLORIDE Mini-bag 100 ML IVPB (04:56)
[2023-07-21] MEDS: IPRAT-ALBUT 0.5-2.5 MG/3 ML NEB 1 NEB IH (04:56)
--- NOTE | 2023-07-21 06:24 | PC.NURSE ---
End of shift [id number]: Alert and oriented x 4. Denies any pain or shortness of breath. Lung sounds with crackles bilaterally, denies any shortness of breath. Does state she feels the nebulizers are beneficial. At 0500 when to administer IV abx it was noted that patient's IV had been pulled. New IV placed, patent and antibiotic administered. Transfers with min assist to stand and SBA with gait belt and walker.
[2023-07-21 06:34] LABS: Hemoglobin* 9.5 gm/dL (12.0-16.0); Lymphocytes Percent Auto 12.3 % (20-44); Mean Corpuscular HGB Conc 31 gm/dL (32-36); Mean Corpuscular Hemoglobin 27 pg (26-34); Mean Corpuscular Volume 86 fL (80-100); Monocytes Percent Auto 12.3 % (0.0-11.0); Neutrophils Percent Auto 70.5 % (42.0-72.0); Platelet Count* 183 K/uL (140-440); RDW Coefficient of Variation % 15.3 % (11.5-15.5); Red Blood Count 3.59 m/uL (4.00-5.20)
[2023-07-21 06:35] LABS: Immature Granulocytes Pct Auto 4.9 %
[2023-07-21 06:46] LABS: Chloride* 105 mmol/L (96-114); Potassium* 3.2 mmol/L (3.6-5.1); Sodium* 138 mmol/L (135-149)
[2023-07-21 06:49] LABS: Anion Gap 10 mEq/L (7-15); Blood Urea Nitrogen* 7 mg/dL (7-30); Calcium* 8.8 mg/dL (8.4-10.6); Carbon Dioxide* 23 mmol/L (20-32); Creatinine* 0.5 mg/dL (0.5-1.5); Estimated Glomerular Filt Rate 97 ml/min; Glucose* 118 mg/dL (60-115)
[2023-07-21 07:16] LABS: Slide Review Reflex No
[2023-07-21 07:48] VITALS: PULSE 85
[2023-07-21] MEDS: DOXYCYCLINE HYCLATE 100 MG PO (09:33)
[2023-07-21] MEDS: OSELTAMIVIR 30 MG CAPSULE PO (09:33)
[2023-07-21 09:35] VITALS: BP 114/57; PULSE 90; RESP 18; TEMP 36.8; O2SAT 90
[2023-07-21] MEDS: predniSONE 20 MG TABLET 40 MG PO (09:37)
[2023-07-21 11:00] VITALS: BP 134/77; PULSE 86; RESP 20; TEMP 37.1; O2SAT 92
--- NOTE | 2023-07-21 11:18 | RESP.RT ---
Rt education provided for MDI/aerchamber, and Aerobika. Son in room and involved with education. Doing well with aerobika After 6 attempts with a placebo inhaler pt did well. Son does understand the order of skill needed for med delivery. Also gave them the [facility] How to use a meter dose inhaler handout for followup.
--- NOTE | 2023-07-21 15:00 | PM.DS1 ---
DS: Providers Provider Date Seen: 07/21/23 Date of admission: 07/19/23 04:10 Primary care physician: Josette Copeland Admitting Clinician: Marline Burgos MD Attending Physician on discharge: Kevan Martin MD Date of Discharge: 07/21/23 DS: Diagnosis Discharge Diagnosis (1) Pneumonia: Status: Acute Problem details: - in association with influenza a, consider viral pneumonia versus community-acquired pneumonia versus aspiration pneumonia. - treating community-acquired pneumonia with doxycycline and ceftriaxone (2) Influenza A: Status: Acute Problem details: - oseltamivir (3) COPD exacerbation: Status: Suspected Problem details: History of smoking and now with wheezing in association with influenza pneumonia (4) Anemia: Status: Acute Problem details: Iron deficiency anemia, patient did not follow-up last year. Continue to monitor. Inpatient verses outpatient evaluation. History of upper GI bleeding and H pylori infection (5) Poor appetite: Status: Acute Problem details: Stop maintenance fluids and assess her ability to take in p.o. food and fluid. Medications and current illness likely contributed to to loss of appetite (6) Hypokalemia: Status: Acute Problem details: - monitor and replace. (7) Hypoxia: Status: Acute Problem details: - hypoxic on presentation on 07/19/2023 requiring low-flow oxygen support, resolved by the afternoon of 07/19/2023. No oxygen need for the last 48 hours. DS: Summary Hospital Course Hospital Course: 77-year-old female admitted to the hospital with a 5 day history of respiratory illness including myalgias, dyspnea, congestion, cough, sore throat, fever. She lives with her son was had similar illness. On admission she was diagnosed with influenza a as well as a diffuse patchy pneumonia. She has been treated with Tamiflu, doxycycline and ceftriaxone. She reports feeling some better today. She was initially requiring oxygen on admission but now has been off oxygen for the last day. She has had very little p.o. food and fluid. She reports a very poor appetite. She has been on maintenance IV fluids for this. She has a history of smoking and quit about 3 years ago. She does not have a history of COPD diagnosis. She has not been treated with inhaled bronchodilators in the past. Over the last day she reports improvement. She has been able to walk independently. She has not required any oxygen. She has been starting to eat regular food though still reports a poor appetite. She reports ongoing fatigue. Status at Discharge Functional status at discharge: uses cane/walker Overall status at discharge: patient is progressing back to baseline Time Spent with Patient Time attestation: Total time spent providing and/or coordinating discharge services: Time spent: Greater than 30 minutes Specific discharge activities: 45 min Exam Narrative: Exam Narrative: She is alert and appears in no obvious distress. Breathing comfortably on room air. Respirations with predominantly right-sided crackles/rhonchi which improved but do not completely resolve with coughing. Few on the left. Wheezing present yesterday as resolved today. Cardiovascular: S1, S2, regular rate and rhythm. Abdomen is soft without tenderness or mass Const: Vital Signs, click to edit/add: Vital Signs - 24 hr 07/20/23 15:05 07/20/23 19:00 07/20/23 23:00 Temperature 97.4 F L 97.5 F L Pulse Rate Pulse Rate [Bilate ral Dorsalis Pedis ] 101 H Pulse Rate [Pulse Oximeter] 94 90 Respiratory Rate 20 18 20 Blood Pressure [Ri ght Arm] 147/82 H 147/78 H Pulse Oximetry 93 91 Oxygen Delivery Me thod Room Air Room Air 07/20/23 23:00 07/21/23 03:00 07/21/23 04:15 Temperature 97.6 F 97.4 F L 97.4 F L Pulse Rate Pulse Rate [Bilate ral Dorsalis Pedis ] Pulse Rate [Pulse Oximeter] 90 94 94 Respiratory Rate 20 20 20 Blood Pressure [Ri ght Arm] 145/75 H 134/86 134/86 Pulse Oximetry 94 92 92 Oxygen Delivery Me thod Room Air Room Air Room Air 07/21/23 07:48 07/21/23 09:35 07/21/23 11:00 Temperature 98.3 F 98.7 F Pulse Rate 85 Pulse Rate [Bilate ral Dorsalis Pedis ] Pulse Rate [Pulse Oximeter] 90 86 Respiratory Rate 18 20 Blood Pressure [Ri ght Arm] 114/57 L 134/77 Pulse Oximetry 90 92 Oxygen Delivery Me thod Room Air Room Air Documenting provider has reviewed patient's vital signs: yes DS: Data Data Completed and Pending Completed studies during hospitalization: Procedures Introduction of Remdesivir Anti-infective into Peripheral Vein, Percutaneous Approach, [employer] 5 (05/31/22) Labs on day of discharge: Labs from last 24 hours 07/21/23 05:45 WBC 3.50 L RBC 3.59 L Hgb 9.5 L Hct 31.0 L MCV 86 MCH 27 MCHC 31 L RDW Coeff of William 15.3 Plt Count 183 Neut % (Auto) 70.5 Lymph % (Auto) 12.3 L [place] % (Auto) 12.3 H Eos % (Auto) 0.0 Baso % (Auto) 0.0 Neut # (Auto) 2.50 Lymph # (Auto) 0.40 L [place] # (Auto) 0.40 Eos # (Auto) 0.00 Baso # (Auto) 0.00 Abs Immat Gran (auto) 0.20 Imm/Tot Granulo (auto) 4.9 Sodium 138 Potassium 3.2 L Chloride 105 Carbon Dioxide 23 Anion Gap 10 BUN 7 Creatinine 0.5 Estimated Creat Clear 35.40 Estimated GFR 97 Glucose 118 H Calcium 8.8 Discharge Plan Discharge Disposition: Home w/ Parent or Adult Date of Admission: 07/19/23 04:10 Attending Provider on Discharge: Leeroy Martin Primary Care Provider: Josette Copeland Condition: Improved Anticipated Discharge Date/Time: 07/21/23 10:00 Discharge Medications: New doxycycline hyclate 100 mg Tablet 100 mg PO BID Qty: 10 0RF oseltamivir [Tamiflu] 30 mg Capsule 30 mg PO BID Qty: 6 0RF albuterol sulfate 90 mcg/actuation HFA aerosol inhaler 2 puff inhalation Q6H PRN (Reason: shortness of breath or wheezing) Qty: 8.5 0RF Continued gabapentin 400 mg capsule 1,600 - 2,000 mg PO HS sertraline 100 mg tablet 100 mg PO DAILY tramadol 50 mg tablet 50 mg PO Q8H PRN omeprazole 20 mg capsule,delayed release(DR/EC) 20 mg PO BID Discharge Orders: Discharge Order (Routine); Ordered 07/21/23 Ordered By: Leeroy Martin Patient Education: Doxycycline (By mouth), Albuterol (By breathing), Oseltamivir (By mouth), Influenza (DC) Additional Instructions: Consider seeing a coverstitch machine operator for pulmonary function testing once you are recovered from this illness. Activity Level: Activity as Tolerated Discharge Diet: Regular Follow Up Appointments: Josette Copeland MD [Primary Care Provider] - 07/26/23 10:15 am ([facility] for follow-up appointment. ) Forms: [facility] Info Instructions
--- NOTE | 2023-07-21 15:44 | PC.NURSE ---
Pt eval by Dr. Martin and primary RN. DX with LLL PNX and positive influenza A, pt remains on droplet precautions. Young Boyre is primary caregiver, vigilant, supportive & helpful at bedside. No dysphagia with am meds. Tele indicates NSR. New order for d/c obtained at [address] Martin. Tele discontinued, pt no longer has IV site d/to infiltration noted this am on left AC site #22 gauge. MD aware and no new order to reinsert IV prior to planned d/c. Report to oncoming shift RN Bruna who will go over d/c papers with patient this evening. Sats maintained on r/a, enc TCDB and IS Q1 hour while awake. Pt up with SBA of one, GB and walker to BR.
== END 2023-07-21 15:37 | disposition home or self-care (01) | DRG 194 ==
LOC: ED 07-19 00:23 → MEDSURG 07-19 01:58
PROVIDERS: Family Medicine; Internal Medicine; Admitting Provider Internal Medicine; Emergency Provider Family Medicine; PCP Emergency Medicine; Visit Provider Internal Medicine
DX: J10.00 Influenza due to other identified influenza virus with unspecified type of pneumonia (principal); J44.0 Chronic obstructive pulmonary disease with (acute) lower respiratory infection; Z68.1 Body mass index [BMI] 19.9 or less, adult; J44.1 Chronic obstructive pulmonary disease with (acute) exacerbation; Z87.891 Personal history of nicotine dependence; D50.9 Iron deficiency anemia, unspecified; R63.0 Anorexia; E87.6 Hypokalemia; R09.02 Hypoxemia; R53.1 Weakness
CPT/HCPCS: 36415; 71045; 71275; 80048; 80053; 82803; 83605; 83735; 83880; 84100; 84145; 84484; 85025; 85027; 85379; 86140; 87070; 87631; 93005; 94640; 94664; 94761; 97116; 97162; 99285; 99291; G0378; A9270; J0696; J1650; J2543; J7030; J7512; Q9967

== ENCOUNTER 2023-07-26 10:53 | Outpatient (CLI) | payer MEDICARE, SELFPAY ==
--- OUTSIDE RECORDS SUMMARY | 2023-07-26 10:57 | XMS_ITS | Encounter Summary ---
Author Name Unknown Organization [facility] Address [address] [place] [address] Care Team Providers Care Reel Stripper Name Role Phone Shiraz Simeon PA-C Primary Care Provider [phone] Reason for Visit * Reason Comments Refill sertraline (ZOLOFT) 100 MG tablet [Pharmacy Med Name: SERTRALINE 100MG TABLETS]; omeprazole (PRILOSEC) 20 MG capsule [Pharmacy Med Name: OMEPRAZOLE 20MG CAPSULES] Encounter Details Date Type Department Care Team Description 03/14/2023 Refill [facility] [address] [place] [id number] Shiraz Simeon PA-C [address] [place] [id number] Refill (sertraline (ZOLOFT) 100 MG tablet [Pharmacy [...] CDT Further Assistance Needed on Refill from [employer] Hauler Pusher Patient is due for Qualifying Visit Medication [...] visit: None [facility] Embedded Refills, Reference: [id number], 03/14/2023 3:31:51 AM CDT, Pool: EAGEN REFILL ([id number]) sertraline (ZOLOFT) 100 MG tablet [Pharmacy Med [...] Age: 77 [facility] Embedded Refills, Reference: [id number], 03/14/2023 3:31:51 AM CDT, Pool: ARIANNE REFILL ([id number]) documented in this encounter Plan of Treatment Upcoming Encounters Date Type Department Care Team Description 07/31/2023 10:30 AM FOREST FIRE CONTROL OFFICER Telemedicine [facility] [address] [place] [address] Shiraz Simeon PA-C [address] [phone] documented as of this encounter Visit Diagnoses Diagnosis History of gastric ulcer Personal history of other diseases of digestive system Generalized anxiety disorder (HRC) Generalized anxiety disorder documented in this encounter Care Teams Reel Stripper Relationship Specialty Start Date End Date Shiraz Simeon PA-C [address] [place] [id number] PCP - General 03/02/16 documented as of this encounter
--- OUTSIDE RECORDS SUMMARY | 2023-07-26 10:57 | XMS_ITS | Encounter Summary ---
Author Name Unknown Organization [facility] Address [address] [place] [address] Care Team Providers Care Production Scheduler Name Role Phone Shiraz Simeon PA-C Primary Care Provider [phone] Reason for Visit * Reason Comments Refill traMADol (ULTRAM) 50 MG tablet [Pharmacy Med Name: TRAMADOL 50MG TABLETS] Encounter Details Date Type Department Care Team Description 04/02/2023 Refill [facility] [address] [place] [id number] Shiraz Simeon PA-C [address] [place] [address] [address] [place] [id number] Refill (traMADol (ULTRAM) 50 MG tablet [Pharmacy [...] (with SHIRAZ SIMEON) Next scheduled visit: None [facility] Embedded Refills, Reference: [id number], 04/02/2023 5:14:27 PM CDT, Pool: ARIANNE REFILL ([id number]) * Interface, Out [employer] Prov Query - 04/02/2023 5:14 PM CDT No Careplan note found by [employer]. documented in this encounter Plan of Treatment Upcoming Encounters Date Type Department Care Team Description 07/31/2023 10:30 AM COBOL APPLICATION DEVELOPER Telemedicine [facility] [address] [place] [phone] Shiraz Simeon, PAMisbahC [address] [place] [id number] documented as of this encounter Visit Diagnoses Diagnosis Chronic right-sided low back pain with right-sided sciatica documented in this encounter Care Teams Production Scheduler Relationship Specialty Start Date End Date Shiraz Simeon PA-C [address] [place], [place] [address] PCP - General 03/02/16 documented as of this encounter
--- OUTSIDE RECORDS SUMMARY | 2023-07-26 10:57 | XMS_ITS | Encounter Summary ---
Author Name Unknown Organization [facility] Address [address] [place] [address] Care Team Providers Care Wildlife Control Agent Name Role Phone Shiraz Simeon PA-C Primary Care Provider [phone] Reason for Visit * Reason Comments Refill sertraline (ZOLOFT) 100 MG tablet [Pharmacy Med Name: SERTRALINE 100MG TABLETS]; omeprazole (PRILOSEC) 20 MG capsule [Pharmacy Med Name: OMEPRAZOLE 20MG CAPSULES] Encounter Details Date Type Department Care Team Description 07/07/2023 Refill [facility] [address] [place] [address] Shiraz Simeon PA-C [address] [place] [phone] Refill (sertraline (ZOLOFT) 100 MG tablet [Pharmacy [...] ???Rx Final??? quick action to address request. CAMERA OPERATOR * Unique Mathew RN - 07/09/2023 8:51 AM CST Further Assistance Needed on Refill from [employer] Well Treatment Operator Patient is due for Qualifying Visit Medication [...] MEALS. TAKE 1 HOURS BEFORE A MEAL CAMERA OPERATOR * Interface, Out [employer] Prov Query - [...] SHIRAZ SIMEON) Next scheduled visit: None [facility] Embedded Refills, Reference: [id number], 07/07/2023 3:31:50 AM Clif LALA: ROSANNA Refill Centralized Services - Primary Care [[id number]] ([id number]) sertraline (ZOLOFT) 100 MG tablet [Pharmacy Med [...] Age: 77 [facility] Embedded Refills, Reference: [id number], 07/07/2023 3:31:50 AM LINE CAMERA OPERATOR, Pool: PN Refill Centralized Services - Primary Care [[id number]] ([id number]) CAMERA OPERATOR documented in this encounter Plan of Treatment Upcoming Encounters Date Type Department Care Team Description 07/31/2023 10:30 AM LINE CAMERA OPERATOR [facility] [address] [place] [phone] Shiraz Simeon PA-C [address] [phone] documented as of this encounter Visit Diagnoses Diagnosis Generalized anxiety disorder (HRC) Generalized anxiety disorder History of gastric ulcer Personal history of other diseases of digestive system documented in this encounter Care Teams Wildlife Control Agent Relationship Specialty Start Date End Date Shiraz Simeon PA-C [address] [place] [phone] PCP - General 03/02/16 documented as of this encounter
--- OUTSIDE RECORDS SUMMARY | 2023-07-26 10:57 | XMS_ITS | Encounter Summary ---
Author Name Unknown Organization [facility] Address [address] [place] [address] Care Team Providers Care Licensed Acupuncturist Name Role Phone Shiraz Simeon PA-C Primary Care Provider [phone] Reason for Visit * Reason Comments Refill traMADol (ULTRAM) 50 MG tablet [Pharmacy Med Name: TRAMADOL 50MG TABLETS] Encounter Details Date Type Department Care Team Description 09/03/2022 Refill [facility] [address] [place] [phone] Shiraz Simeon PA-C [address] [place] [address] Dr [place] [phone] Refill (traMADol (ULTRAM) 50 MG tablet [Pharmacy [...] (with SHIRAZ SIMEON) Next scheduled visit: None [employer] [facility] Embedded Refills, Reference: [id number], 09/03/2022 10:21:02 AM INSIDE PARTS SALES, Pool: ARIANNE REFILL ([id number]) DE PARTS SALES * Interface, Out [employer] Prov Query - 09/03/2022 10:21 AM CST No Careplan note found by [employer]. DE PARTS SALES documented in this encounter Plan of Treatment Upcoming Encounters Date Type Department Care Team Description 07/31/2023 10:30 AM INSIDE PARTS SALES Telemedicine [facility] [address] [place] [address] Shiraz Simeon, PAMarielle [address] [place] [id number] documented as of this encounter Visit Diagnoses Diagnosis Chronic right-sided low back pain with right-sided sciatica documented in this encounter Care Teams Licensed Acupuncturist Relationship Specialty Start Date End Date Shiraz Simeon PA-C [address] [place] [address] PCP - General 03/02/16 documented as of this encounter
--- OUTSIDE RECORDS SUMMARY | 2023-07-26 10:57 | XMS_ITS | Encounter Summary ---
Author Name Unknown Organization [facility] Address [address] [place] [address] Care Team Providers Care Vision Rehabilitation Therapist Name Role Phone Shiraz Simeon PA-C Primary Care Provider [phone] Reason for Visit * Reason Comments Refill traMADol (ULTRAM) 50 MG tablet [Pharmacy Med Name: TRAMADOL 50MG TABLETS] Encounter Details Date Type Department Care Team Description 10/23/2022 Refill [facility] [address] [place] [phone] Shiraz Simeon PA-C [address] [place] [address] Dr [place] [phone] Refill (traMADol (ULTRAM) 50 MG tablet [Pharmacy [...] (with SHIRAZ SIMEON) Next scheduled visit: None [employer] Embedded Refills, Reference: [id number], 10/23/2022 10:04:16 AM CDT, Pool: ARIANNE REFILL ([id number]) * Interface, Out [employer] Prov Query - 10/23/2022 10:04 AM CDT No Careplan note found by [employer]. documented in this encounter Plan of Treatment Upcoming Encounters Date Type Department Care Team Description 07/31/2023 10:30 AM LINE UP WORKER Telemedicine [facility] [address] [place] [phone] Shiraz Simeon, PAMisbahC [address] [place] [phone] documented as of this encounter Visit Diagnoses Diagnosis Chronic right-sided low back pain with right-sided sciatica documented in this encounter Care Teams Vision Rehabilitation Therapist Relationship Specialty Start Date End Date Shiraz Simeon PA-C [address] [place], [place] [address] PCP - General 03/02/16 documented as of this encounter
--- OUTSIDE RECORDS SUMMARY | 2023-07-26 10:57 | XMS_ITS | Encounter Summary ---
Author Name Unknown Organization [facility] Address [address] [place] [address] Care Team Providers Care Science Center Display Builder Name Role Phone Shiraz Simeon PA-C Primary Care Provider [phone] Reason for Visit * Reason Comments Refill gabapentin (NEURONTI N) 400 MG capsule [Pharmacy Med Name: GABAPENTIN 400MG CAPSULES] Encounter Details Date Type Department Care Team Description 06/07/2023 Refill [facility] [address] [place] [address] Shiraz Simeon PA-C [address] [place] [address] [place] [address] Refill (gabapentin (NEURONTIN) 400 MG capsule [...] call back sometime to schedule the MAW. ET FLOOR LAYER APPRENTICE * Shiraz Simeon PA-C - 06/07/2023 10:20 AM CST Rx faxed for 90 day supply, please help her schedule IN [facility] ET FLOOR LAYER APPRENTICE * Interface, Out [employer] Prov Query - 06/07/2023 8:34 AM CST [...] visit: None [facility] Embedded Refills, Reference: [id number], 06/07/2023 8:34:50 AM SPIKE, Pool: PN Refill Centralized Services - Primary Care [[id number]] ([id number]) ET FLOOR LAYER APPRENTICE documented in this encounter Plan of Treatment Upcoming Encounters Date Type Department Care Team Description 07/31/2023 10:30 AM CARPET FLOOR LAYER APPRENTICE [facility] [address] [place] [address] [address] Shiraz Simeon PA-C [address] [place] [address] documented as of this encounter Visit Diagnoses Diagnosis Restless legs syndrome (RLS) documented in this encounter Care Teams Science Center Display Builder Relationship Specialty Start Date End Date Shiraz Simeon PA-C [address] [place] [address] PCP - General 03/02/16 documented as of this encounter
--- OUTSIDE RECORDS SUMMARY | 2023-07-26 10:57 | XMS_ITS | Encounter Summary ---
Author Name Unknown Organization [facility] Address [address] [place] [address] Care Team Providers Care Blood Bank Booking Clerk Name Role Phone Shiraz Simeon PA-C Primary Care Provider [phone] Reason for Visit * Reason Onset Date Comments Refill 07/28/2022 traMADol (ULTRAM ) 50 MG tablet Encounter Details Date Type Department Care Team Description 07/28/2022 Refill [facility] [address] [facility] [place] [phone] Shiraz Simeon PA-C [address] [place] [address] Dr [place] [phone] Refill (traMADol (ULTRAM) 50 MG tablet) Social [...] (with SHIRAZ SIMEON) Next scheduled visit: None [employer] Embedded Refills, Reference: [id number], 07/28/2022 10:15:02 AM CHECKER [employer]ODUCTS, Pool: ARIANNE REFILL ([id number]) [employer] * Interface, Out [employer] Prov Query - 07/28/2022 10:15 AM CST No Careplan note found by [employer]. [employer] documented in this encounter Plan of Treatment Upcoming Encounters Date Type Department Care Team Description 07/31/2023 10:30 AM CHECKER BAKERY PRODUCTS Telemedicine [facility] [address] [place] [phone] Shiraz Simeon PA-C [address] [place] [address] documented as of this encounter Visit Diagnoses Diagnosis Chronic right-sided low back pain with right-sided sciatica documented in this encounter Care Teams Blood Bank Booking Clerk Relationship Specialty Start Date End Date Shiraz Simeon PA-C [address] [place] [address] PCP - General 03/02/16 documented as of this encounter
--- OUTSIDE RECORDS SUMMARY | 2023-07-26 10:57 | XMS_ITS | Clinical Summary ---
Author Name Unknown Organization [facility] Address [address] [place] [address] Care Team Providers Care Iron Caster Name Role Phone Shiraz iSmeon PA-C Primary Care Provider [phone] Source Comments You are receiving this document as you are listed as the primary care provider,follow-up provider, or the patient has been referred to you for consultation.This is in compliance with the Medicare and[facility] Cent[facility]aid EHR Incentive Program,which states Providers who transition their patient to another setting of careor provider of care or refers their patient to another provider of care shouldprovide summary care record for each transition of care or referral. [email or web address] CenterChalet Tech Allergies Active Allergy Reactions Criticality Noted Date [...] 2011. She is due to see her out and out cigar maker hand, and would like her labs done today [...] Department Care Team Description 07/07/2023 Refill [facility] [address] [place] [address] Shiraz Simeon PA-C Refill (sertraline (ZOLOFT) 100 MG tablet [Pharmacy Med Name: SERTRALINE 100MG TABLETS]; omeprazole (PRILOSEC) 20 MG capsule [Pharmacy Med Name: OMEPRAZOLE 20MG CAPSULES]) 06/07/2023 Refill [facility] [address] [place] [address] Shiraz Simeon PA-C Refill (gabapentin (NEURONTIN) 400 MG capsule [Pharmacy Med Name: GABAPENTIN 400MG CAPSULES]) from Last 3 Months Immunizations Name Administration Dates Next Due DT Ped 01/25/1989 Flu Vac Preserv Free (3+yrs) 04/04/2012 Influenza (Flucelvax), Preserv Free 07/11/2013 Influenza IIV3 (Trivalent) Anne Deanse, 65+ Yrs ([id number]) 06/22/2020,04/29/2019,04/17/2018,2016,04/08/2015 Influenza IIV4 (Quadrivalent ) 0.5mL (76648) 07/25/2016 Influenza, Unspecified Formulation 04/16/1997 PCV13 (Prevnar) [...] Comments Blood Pressure 100/62 06/01/2021 12:28 PM FINE ARTS INSTRUCTOR Pulse 124 06/01/2021 12:28 PM FINE ARTS INSTRUCTOR Temperature 36.6 ??C (97.8 ??F) 06/01/2021 12:[address] Respiratory Rate 20 06/01/2021 12:28 PM FINE ARTS INSTRUCTOR Oxygen Saturation 97% 06/01/2021 12:28 PM FINE ARTS INSTRUCTOR Inhaled Oxygen Concentration - - Weight 47.6 kg (105 lb) 04/04/2021 8:28 AM CDT P ER PT Height 160 cm (5' 3) 04/04/2021 8:28 AM CDT PER PT Body Mass Index 18.6 04/04/2021 8:28 AM CDT Plan of Treatment Upcoming Encounters Date Type Department Care Team Description 07/31/2023 10:30 AM FINE ARTS INSTRUCTOR Telemedicine [facility] [address] [place] [address] Shiraz Simeon PA-C [address] [place] [address] Health Maintenance Due Date Last Done Comments [...] age to complete this topic Care Teams Iron Caster Relationship Specialty Start Date End Date Shiraz Simeon PA-C [address] [place] [address] PCP - General 03/02/16
== END 2023-07-26 10:54 | disposition home or self-care (01) ==
PROVIDERS: PCP Emergency Medicine; Visit Provider Emergency Medicine
DX: D50.9 Iron deficiency anemia, unspecified (principal); R74.01 Elevation of levels of liver transaminase levels
CPT/HCPCS: 80076; 82728; 83540; 83550

== ENCOUNTER 2023-11-16 18:31 | Emergency (ER) | payer MEDICARE, SELFPAY ==
[2023-11-16 19:25] VITALS: BP 145/87; PULSE 85; RESP 16; TEMP 37; O2SAT 98; BMI 19.5
--- NOTE | 2023-11-16 19:37 | ED.GENADULT ---
HPI - General Adult General Chief complaint: Diarrhea Stated complaint: Weakness, diahrea Time Seen by Provider: 11/16/23 18:36 History of Present Illness HPI narrative: diarrhea on and off all week. states feels weak. poor appetite. gas cramping lower abd pain. 78-year-old woman presenting to the emergency department with concern of abdominal cramping and diarrhea. This is now about 5 days of symptoms. Has some loose component with more watery at times. Denies any melena or hematochezia. Over last 12 hours would estimate about 10-12 bowel movements. This is significantly more frequent than earlier in the week. Has not had a fever. Is having trouble eating but not because she is nauseated she does say she has no appetite. Poor appetite has been noted on past medical review. Does have a history of hypokalemia and does receive potassium supplementation. She has not had any rash. No particular exposures. Denies food intolerances. Has not attempted to treat these symptoms. Apparently has been having large flatulence. Did have some associated cramping pain. Has not had recent antibiotics. Does have a history of AFib with RVR. Related Data Home Medications Medication Instructions Recorded Confirmed gabapentin 400 mg capsule 1,600 - 2,000 mg PO HS restless 05/31/22 11/16/23 leg(s) omeprazole 20 mg capsule,delayed 20 mg PO BID 05/31/22 11/16/23 release sertraline 100 mg tablet 100 mg PO DAILY 05/31/22 11/16/23 tramadol 50 mg tablet 50 mg PO Q8H PRN 05/31/22 11/16/23 Previous Rx's Medication Instructions Recorded albuterol sulfate 90 mcg/actuation 2 puff inhalation Q6H PRN 07/21/23 aerosol inhaler shortness of breath or wheezing #8.5 grams fluticasone fur. 200 mcg-umeclid 1 inh inhalation Q24H #60 ea 07/26/23 62.5 mcg-vilant 25 mcg inhalat.powder (Trelegy Ellipta) potassium chloride 20 mEq 20 meq PO QDAY #5 tabs 07/26/23 tablet,extended release Allergies Allergy/AdvReac Type Severity Reaction Status Date / Time ferrous sulfate Allergy Unknown Nausea Verified 07/26/23 10:32 Review of Systems Status of ROS: Reports: 6 or more systems reviewed and unremarkable except as noted in History and below [facility] Medical History Ecchymosis ?R58 - Hemorrhage, not elsewhere classified (ICD-10) Elevated transaminase level ?R74.01 - Elevation of levels of liver transaminase levels (ICD-10) Acute hypoxemic respiratory failure ?J96.01 - Acute respiratory failure with hypoxia (ICD-10) History of gastric ulcer (01/31/12) ?Z87.11 - Personal history of peptic ulcer disease (ICD-10) SVT (supraventricular tachycardia) ?I47.1 - Supraventricular tachycardia (ICD-10) Hypokalemia ?E87.6 - Hypokalemia (ICD-10) Nephrolithiasis ?N20.0 - Calculus of kidney (ICD-10) Restless leg syndrome ?G25.81 - Restless legs syndrome (ICD-10) Generalized anxiety disorder ?F41.1 - Generalized anxiety disorder (ICD-10) Iron deficiency anemia ?D50.9 - Iron deficiency anemia, unspecified (ICD-10) Chronic back pain ?M54.9 - Dorsalgia, unspecified (ICD-10) ?G89.29 - Other chronic pain (ICD-10) Controlled substance agreement signed ?Z79.899 - Other long term care phlebotomist (current) drug therapy (ICD-10) Gastric ulcer ?K25.9 - Gastric ulcer, unspecified as acute or chronic, without hemorrhage or perforation (ICD-10) Surgical History S/P YUNG-BSO ?Z90.710 - Acquired absence of both cervix and uterus (ICD-10) ?Z90.722 - Acquired absence of ovaries, bilateral (ICD-10) ?Z90.79 - Acquired absence of other genital organ(s) (ICD-10) Family History Mother Cataract Osteoarthritis PUD (peptic ulcer disease) Brother No problems noted. Brother High cholesterol High blood pressure Retinal detachment Sister AAA (abdominal aortic aneurysm) Renal failure Family/Other Myocardial infarction Social History Narrative: Quit smoking 1 year ago. Smoked 1/2-1ppd. Denies alcohol or recreational drugs. FULL CODE. What is your current living situation?: I presently have a place to live Problems where you live: no known problems Problems where you live details: n/a In the past 12 months, utilities in danger of being shut off: no In past 12 months, lack of transportation kept you from medical appts, meetings, work, or getting things needed for daily living: no In the past 12 mos, have been you worried that your food would run out before you had money to buy more?: never true In the past 12 mos, the food you bought just didn't last and you didn't have money to buy more?: never true Smoking Status: Former smoker Nicotine containing products detail: quit 1 year ago 2020 Second hand tobacco smoke exposure: No How often do you have a drink containing alcohol: never AUDIT-C Alcohol total score: 0 Non-prescribed substance use: denies use Caffeine: No How often does anyone, including family, friends and others, physically hurt you: never How often does anyone, including family, friends and others, insult or talk down to you: never How often does anyone, including family, friends and others, threaten you with harm: never How often does anyone, including family, friends and others, scream or curse at you: never Little interest or pleasure in doing things: not at all Feeling down, depressed, or hopeless: not at all service: No Exam Narrative: Exam Narrative: Pleasant. NAD. Subtly hard of hearing. Head is atraumatic. Tooth 24 is eroded. No evidence of gingivitis. Is breathing easily. Lungs are clear. Heart in regular rate and rhythm though the think some ectopic beats. Abdomen with quite active bowel sounds. Soft. Mildly uncomfortable to palpation without peritoneal signs across the lower abdomen. No masses. Extremities are well perfused. Moving all extremities without difficulty. She has no lower extremity edema. Const: Vital Signs, click to edit/add: Vital Signs - 24 hr 11/16/23 19:25 Temperature 98.6 F Pulse Rate [Pulse Oximeter] 85 Respiratory Rate 16 Blood Pressure [Le ft Upper Arm] 145/87 H Pulse Oximetry 98 Oxygen Delivery Me thod Room Air Documenting provider has reviewed patient's vital signs: yes Course Vital Signs Vital signs: Initial Vital Signs Temperature 98.6 F 11/16/23 19:25 Temperature Source Temporal Artery Scan 11/16/23 19:25 Pulse Rate 85 11/16/23 19:25 Respiratory Rate 16 11/16/23 19:25 Blood Pressure 145/87 H 11/16/23 19:25 Blood Pressure Mean 106 H 11/16/23 19:25 Blood Pressure Position Sitting 11/16/23 19:25 Pulse Oximetry 98 11/16/23 19:25 Oxygen Delivery Method Room Air 11/16/23 19:25 Vital Signs Temperature 98.6 F 11/16/23 19:25 Pulse Rate 85 11/16/23 19:25 Respiratory Rate 16 11/16/23 19:25 Blood Pressure 145/87 H 11/16/23 19:25 Pulse Oximetry 98 11/16/23 19:25 Oxygen Delivery Method Room Air 11/16/23 19:25 Temperature 98.6 F 11/16/23 19:25 Pulse Rate 85 11/16/23 19:25 Respiratory Rate 16 11/16/23 19:25 Blood Pressure 145/87 H 11/16/23 19:25 Pulse Oximetry 98 11/16/23 19:25 Oxygen Delivery Method Room Air 11/16/23 19:25 Medications Administered Medications: Discontinued Medications Generic Name Dose Route Start Last Admin Trade Name Freq PRN Reason Stop Dose Admin Sodium Chloride 1,000 mls @ 1,000 mls/hr 11/16/23 19:55 11/16/23 21:29 0.9 % Sodium Chloride 1000 Ml IV 11/16/23 20:54 Infused .Q1H ONE Infusion Potassium Chloride 10 meq in 100 mls @ 100 mls/hr 11/16/23 21:13 11/16/23 22:52 Potassium Chloride IVPB 11/16/23 22:12 Infused ONCE ONE Infusion Potassium Bicarbonate 50 meq 11/16/23 21:12 11/16/23 21:23 Potassium Bicarb 25 Meq Effervescent Tab PO 11/16/23 21:13 50 meq ONCE ONE Administration Medical Decision Making MDM Narrative Medical decision making narrative: Recurrent diarrhea does he may concerned about electrolyte abnormalities as evidence by her history as well. Does seem to have infectious enteritis of some sort or colitis. Does not have significant pain and has not had any hematochezia. With relatively benign symptoms doubtful that will find much of significance in imaging but will do some labs looking for red flags in white count and chemistries. Think would benefit from some IV hydration. Triple swab. Considering what I have been seeing in the community lately I think it might be good idea to screen for C diff if possible. IV hydration. Other treatment pending lab evaluation. Hyoscyamine for cramping. White count a little elevated at just over 13. Noted to be hypokalemic at 2.7. Magnesium is maintained at 1.8. CRP rather elevated 14.1. Did begin potassium replacement with IV 10 mEq bump along with 50 mEq of effort best and potassium bicarbonate. Over course of time in the emergency department making numerous trips to the bathroom for urinating and stooling. Is not complaining of pain. Still attempting to get stool sample for C diff. Has been contaminated. Urinalysis pending also. Urinalysis obtained showing 2+ blood 10-25 red cells and moderate bacteria. Otherwise no indication infection. Renal function looks good. Will be moving ahead with IV contrasted CT scan of abdomen and pelvis. Reviewed CT images. Marked deformity of thoracolumbar spine scoliosis and osteoarthritic spurring. Does have bowel gas present in the rectal stools sigmoid colon. Not look to be obstructed. No inflammatory changes were noted. Pending Radiology over-read. Will be handing off at change of shift. Lab Data Lab results reviewed: Yes I reviewed the patient's lab results Labs: Lab Results 11/16/23 11/16/23 Range/Units 20:11 21:16 WBC 13.11 H (4.50-11.00) K/uL RBC 4.20 (4.00-5.20) m/uL Hgb 10.6 L (12.0-16.0) gm/dL Hct 35.7 (33.0-51.0) % MCV 85 (80-100) fL MCH 25 L (26-34) pg MCHC 30 L (32-36) gm/dL RDW Coeff of William 14.8 (11.5-15.5) % Plt Count 274 (140-440) K/uL Neut % (Auto) 83.8 H (42.0-72.0) % Lymph % (Auto) 6.7 L (20-44) % [place] % (Auto) 8.2 (0.0-11.0) % Eos % (Auto) 0.5 (0.0-7.0) % Baso % (Auto) 0.5 (0.0-3.0) % Neut # (Auto) 11.00 H (1.7-7.0) K/uL Lymph # (Auto) 0.90 (0.90-2.90) K/uL [place] # (Auto) 1.10 H (0.00-0.90) K/UL Eos # (Auto) 0.10 (0.00-0.50) K/uL Baso # (Auto) 0.10 (0.00-0.30) K/uL Abs Immat Gran (auto) 0.00 (0.00-0.30) K/uL Imm/Tot Granulo (auto) 0.3 % Diff Slide Review Acceptable Review (Acceptable) ESR 16 (2-20) mm/hr Sodium 140 (135-149) mmol/L Potassium 2.7 L* (3.6-5.1) mmol/L Chloride 109 (96-114) mmol/L Carbon Dioxide 24 (20-32) mmol/L Anion Gap 7 (7-15) mEq/L BUN 18 (7-30) mg/dL Creatinine 0.6 (0.5-1.5) mg/dL Estimated Creat Clear 37.11 Estimated GFR 92 ml/min Glucose 112 (60-115) mg/dL Calcium 9.1 (8.4-10.6) mg/dL Magnesium 1.8 (1.5-2.6) mg/dL C-Reactive Protein 14.1 H (0.5-1.0) mg/dL Urine Color Yellow (Yellow) Urine Appearance Clear (Clear) Urine pH 6.0 (5.0-8.5) Ur Specific [place] 1.020 (1.000-1.030) Urine Protein 2+ A (Negative) Urine Glucose (UA) Negative (Negative) Urine Ketones Negative (Negative) Urine Blood 2+ A (Negative) Urine Nitrite Negative (Negative) Urine Bilirubin Negative (Negative) Urine Urobilinogen 0.2 (0.2-1.0) Ur Leukocyte Esterase Negative (Negative) Urine RBC 10-25 A (0-2) Urine WBC 0-2 (0-5) Ur Squamous Epith Cells None (None-Few) Urine Bacteria Moderate A (None) Discharge Plan Discharge Clinical Impression: Diarrhea, Hypokalemia, Hematuria, Colitis Patient Disposition: Home w/ Parent or Adult Condition: Improved Additional Instructions: Can take loperamide for diarrhea. This is available fucn-jow-ldypoud. Be evaluated if continuing to have loose diarrheal stools in another 5 days or becoming increasingly lightheaded short of breath or developing a fever or persistent and significant increase in abdominal pain. Follow-up in 1 week for recheck electrolytes/potassium level. In the meantime increase your potassium to 20 mEq (1 tablet) 2 times daily. Please follow-up in a couple of weeks to recheck urine. May need further evaluation if blood remains. Prescriptions: No Action Trelegy Ellipta 200-62.5-25 mcg blister with device 1 inh inhalation Q24H Qty: 60 11RF potassium chloride 20 mEq tablet extended release 20 meq PO QDAY Qty: 5 0RF gabapentin 400 mg capsule 1,600 - 2,000 mg PO HS sertraline 100 mg tablet 100 mg PO DAILY tramadol 50 mg tablet 50 mg PO Q8H PRN omeprazole 20 mg capsule,delayed release(DR/EC) 20 mg PO BID albuterol sulfate 90 mcg/actuation HFA aerosol inhaler 2 puff inhalation Q6H PRN (Reason: shortness of breath or wheezing) Qty: 8.5 0RF Follow Up/Referrals: Josette Copeland MD [Primary Care Provider] - Stand Alone Forms: [employer] [place] [employer] Info Instructions
--- OUTSIDE RECORDS SUMMARY | 2023-11-16 20:04 | XMS_ITS | Clinical Summary ---
Author Name Unknown Organization [facility] Address [address] [place] [address] Care Team Providers Care Dish Person Name Role Phone Shiraz Simeon PA-C Primary Care Provider [phone] Source Comments You are receiving this document as you are listed as the primary care provider,follow-up provider, or the patient has been referred to you for consultation.This is in compliance with the Medicare and[facility] EHR Incentive Program,which states Providers who transition their patient to another setting of careor provider of care or refers their patient to another provider of care shouldprovide summary care record for each transition of care or referral. [employer] Allergies Active Allergy Reactions Criticality Noted Date Comments Ferrous Sulfate Nausea 01/04/2012 Medications Medication Sig Dispensed Refills Start Date End Date Status ondansetron (ZOFRAN-ODT) 4 MG disintegrating tablet Take 1 Tablet by mouth every 8 hours as needed for Nausea. 20 Tablet 1 Active gabapentin (NEURONTIN) 400 MG capsuleIndications: Restless legs syndrome (RLS) TAKE 4 TO 5 CAPSULES BY MOUTH AT BEDTIME 450 Capsule 3 3 Active omeprazole (PRILOSEC) 20 MG capsuleIndications: History of gastric ulcer Take 1 Capsule (20 mg) by mouth every morning. Take 1 hour before a meal. 90 Capsule 3 4 Active sertraline (ZOLOFT) 100 MG tabletIndications:G eneralized anxiety disorder (HRC) Take 1 Tablet (100 mg) by mouth daily. 90 Tablet 3 4 Active ALBUterol sulfate HFA 108 (90 Base) MCG/ACT inhaler Inhale 2 Puffs every 4 hours as needed for Shortness of Breath. 4 Active traMADol (ULTRAM) 50 MG tabletIndications:C hronic right-sided low back pain with right-sided sciatica (HRC) Take 1 Tablet (50 mg) by mouth every 8 hours as needed for Pain. 90 Tablet 4 Active traMADol (ULTRAM) 50 MG tabletIndications:C hronic right-sided low back pain with right-sided sciatica (HRC) Take 1 Tablet (50 mg) by mouth every 8 hours as needed for Pain. 90 Tablet 4 11/08/19 24 Discontinued Active Problems Problem Noted Date Diagnosed Date Acute hypokalemia 07/31/2023 Influenza A 07/31/2023 Tricuspid valve regurgitation 07/31/2023 Controlled substance agreement signed 04/29/2019 Overview: Diagnosis: [...] 2011. She is due to see her plc programmer, and would like her labs done today [...] Problem Noted Date Diagnosed Date Resolved Date Anemia 07/31/2023 07/31/2023 Hypoxia 07/31/2023 07/31/2023 Pneumonia 07/31/2023 07/31/2023 NSAID-induced gastric ulcer 11/16/2011 01/27/2015 Last Assessment [...] Encounters Date Type Department Care Team Description 11/08/2023 Refill [facility] [address] [facility] [place] [address] Shiraz Simeon PA-C Refill (traMADol (ULTRAM) 50 MG tablet [Pharmacy Med Name: TRAMADOL 50MG TABLETS]) 09/14/[address] [place] [address] Shiraz Simeon PA-C Refill (traMADol (ULTRAM) 50 MG tablet [Pharmacy Med Name: TRAMADOL 50MG TABLETS]) from Last 3 Months Immunizations Name Administration Dates Next Due DT Ped 01/25/1989 Flu Vac Preserv Free (3+yrs) 04/04/2012 Influenza (Flucelvax), Preserv Free 07/11/2013 Influenza IIV3 (Trivalent) Anne Deanse, 65+ Yrs (79025) 06/22/2020,04/29/2019,04/17/2018,2016,04/08/2015 Influenza IIV4 (Quadrivalent ) 0.5mL (63154) 07/25/2016 Influenza, Unspecified Formulation 04/16/1997 PCV13 (Prevnar) [...] marcos ck, sudden Mother (Age 94) in ee Brother 1 Alive Brother 2 Jose Alejandro Sister 1 (Age 51) complicati ons after AAA Sister 2 Yady Social History Tobacco Use Types Packs/Day Years Used Date Smoking Tobacco: Former Cigarettes Smokeless Tobacco: Never Tobacco Cessation:Counseling Given: Not Answered Alcohol Use Standard Drinks/Week Comments No 0 (1 standard drink = 0.6 oz pur e alcohol) PHQ-2 Answer Date Recorded PHQ-2 Score 0 07/31/2023 Sex and Gender Information Value Date Recorded Sex Assigned at Not on file Gender Identity Not on file Sexual Orientation Not on file Last Filed Vital Signs Vital Sign Reading Time Taken Comments Blood Pressure 120/80 07/30/2023 9:06 AM ELECTRICAL INSTRUMENT TECHNICIAN 120/80 pt reported Pulse 124 06/01/2021 12:28 PM ELECTRICAL INSTRUMENT TECHNICIAN Temperature 36.6 ??C (97.8 ??F) 06/01/2021 1 2:28 PM ELECTRICAL INSTRUMENT TECHNICIAN Respiratory Rate 20 06/01/2021 12:2 8 PM ELECTRICAL INSTRUMENT TECHNICIAN Oxygen Saturation 94% 07/30/2023 9:0 6 AM ELECTRICAL INSTRUMENT TECHNICIAN pt reported Inhaled Oxygen Concentration - - Weight 47.6 kg (105 lb) 04/04/2021 8:28 AM CDT PER PT Height 160 cm (5' 3) 04/04/2021 8:28 AM CDT PER PT Body Mass Index 18.6 04/04/2021 8:28 AM CDT Plan of Treatment Health Maintenance Due Date Last Done Comments Dexa 10/01/2011 Zoster/Shingles (3 of 3) 06/24/2019 04/29/2019, 12/31 Colonoscopy 11/07/2021 11/08/2011 (Completed) DTaP/Tdap/Td (3 - Tdap) 10/30/2022 10/31/19 13, 10/30/2012, 01/25/1989 COVID-19 Vaccine ( season) 2023 Influenza (Season Ended) 2024 020, 04/29/2019, 04/17/2018, Additional history exists Medicare Annual Wellness Visit 07/31/2024 07/31/2023, 03/14/2022, 04/17/2018 Pneumococcal 65+ Yrs Completed 01/27/2015, [...] on patient's age to complete this topic Procedures Procedure Name Priority Date/Time Associated Diagnosis Comments HEPATITIS C ANTIBODY, WITH REFLEX Routine 04/17/2018 8:41 AM CDT Need for hepatitis C screening test LIPID PANEL & DIRECT LDL (IF NEEDED) Routine 04/17/2018 8:41 AM CDT Screening cholesterol level from Last 3 Months or Most Recently Relevant to Health Maintenance Results * Lipid Panel - LDLD If Trig High (04/17/2018 8:41 AM CDT) Cholesterol 185 0 - 199 mg/dL PN SOFT Triglycerides 78 4 - 149 mg/dL PN SOFT HDL Cholesterol 63 >39 mg/dL PN SOFT Cholesterol/HDL Ratio Screen 2.9 PN SOFT LDL Calculated 106 19 - 130 mg/dL PN SOFT Non HDL Chol, Calc 122 0 - 159 mg/dL PN SOFT Hours Fasting 10.0 PN SOFT 04/17/2018 8:41 AM CDT 04/17/2018 11:03 AM CDT Narrative PN SOFT - 04/17/2018 11:29 AM CDT Performed at [facility], [address] [place] [id number] CLIA number [id number] Shiraz Simeon PA-C LAB_1 Performing Organization Address [facility] Co de Phone Number SOFT [address] [place] [address] * Hepatitis C Virus Miley with Reflex (04/17/2018 8:41 AM CDT) Hepatitis C Antibody Nonreactive Nonreactive PN SOFT 04/17/2018 8:41 AM CDT 04/17/2018 12:10 PM CDT Narrative PN SOFT - 04/17/2018 1:39 PM CDT Performed at [facility], [address] [place] [address] CLIA number [id number] Shiraz Simeon PA-C LAB_1 Performing Organization Address [facility] Co de Phone Number PN SOFT [address] [place] [address] from Last 3 Months or Most Recently Relevant to Health Maintenance Care Teams Dish Person Relationship Specialty Start Date End Date Shiraz Simeon PA-C [facility] [address] [phone] PCP - General 03/02/16
--- OUTSIDE RECORDS SUMMARY | 2023-11-16 20:04 | XMS_ITS | Encounter Summary ---
Author Name Unknown Organization [facility] Address [address] [place] [address] Care Team Providers Care Hospital Security Officer Name Role Phone Shiraz Simeon PA-C Primary Care Provider [phone] Reason for Visit * Reason Comments Refill traMADol (ULTRAM) 50 MG tablet [Pharmacy Med Name: TRAMADOL 50MG TABLETS] Encounter Details Date Type Department Care Team (Late st Contact Info) Description 11/08/2023 Refill [facility] [address] [facility] [address] [place] [id number] Shiraz Simeon PA-C [address] [place] [address] [address] [place] [id number] Refill (traMADol (ULTRAM) 50 MG tablet [Pharmacy Med Name: TRAMADOL 50MG TABLETS]) Social History Tobacco Use Types Packs/Day Years Used Date Smoking Tobacco: Former Cigarettes Smokeless Tobacco: Never Alcohol Use Standard Drinks/Week Comments No 0 (1 standard drink = 0.6 oz pur e alcohol) PHQ-2 Answer Date Recorded PHQ-2 Score 0 07/31/2023 Sex and Gender Information Value Date Recorded Sex Assigned at Not on file Gender Identity Not on file Sexual Orientation Not on file documented as of this encounter Nursing Notes * Jose Arora Xrwcomm - 11/08/2023 12:38 PM CDT traMADol (ULTRAM) 50 MG tablet [Pharmacy Med Name: TRAMADOL 50MG TABLETS] Medication started: 12/16/2017 Last ordered by SHIRAZ SIMEON: 09/14/2023 (55 days ago) QTY: 90, Refills: 0, Sig: take 1 tablet (50mg) by mouth every 8 hours as needed for pain. (changed but equivalent) -> Medication cannot be delegated. Last qualifying visit: 07/31/2023 (with SHIRAZ SIMEON) Next scheduled visit: None [employer] [facility] Embedded Refills, Reference: [id number], 11/08/2023 12:38:58 PM CDT, Clif: ROSANNA Whipple [facility] - Primary Care [[id number]] ([id number]) * Jose Arora - 11/08/2023 12:38 PM CDT No Careplan note found by [employer]. documented in this encounter Plan of Treatment Not on file documented as of this encounter Visit Diagnoses Diagnosis Chronic right-sided low back pain with right-sided sciatica documented in this encounter Care Teams Hospital Security Officer Relationship Specialty Start Date End Date Shiraz Simeon PA-C [address] [place] [address] PCP - General 03/02/16 documented as of this encounter
--- OUTSIDE RECORDS SUMMARY | 2023-11-16 20:04 | XMS_ITS | Encounter Summary ---
Author Name Unknown Organization [facility] Address [address] [place] [address] Care Team Providers Care Industrial Arts Teacher Name Role Phone Shiraz Simeon PA-C Primary Care Provider [phone] Reason for Visit * Reason Comments Refill traMADol (ULTRAM) 50 MG tablet [Pharmacy Med Name: TRAMADOL 50MG TABLETS] Encounter Details Date Type Department Care Team (Late st Contact Info) Description 09/14/2023 Refill [facility] [address] [facility] [place] [id number] Shiraz Simeon PA-C [address] [place] [address] [address] [place] [phone] Refill (traMADol (ULTRAM) 50 MG tablet [Pharmacy [...] Nursing Notes * Jose Arora Xrwcomm - 09/14/2023 12:28 PM CDT traMADol (ULTRAM) 50 MG tablet [Pharmacy Med Name: TRAMADOL 50MG TABLETS] Medication started: 12/16/2017 Last ordered by SHIRAZ SIMEON: 07/31/2023 (45 days ago) QTY: 90, Refills: 0, Sig: take 1 tablet (50mg) by mouth every 8 hours as needed for pain. (changed but equivalent) -> Medication cannot be delegated. Last qualifying visit: 07/31/2023 (with SHIRAZ SIMEON) Next scheduled visit: None [facility] Embedded Refills, Reference: [id number], 09/14/2023 12:28:44 PM CDT, Clif: ROSANNA Whipple [facility] - Primary Care [[id number]] ([id number]) * Jose Arora - 09/14/2023 12:28 PM CDT No Careplan note found by [employer]. documented in this encounter Plan of Treatment Not on file documented as of this encounter Visit Diagnoses Diagnosis Chronic right-sided low back pain with right-sided sciatica documented in this encounter Care Teams Industrial Arts Teacher Relationship Specialty Start Date End Date Shiraz Simeon PA-C [address] [place] [address] PCP - General 03/02/16 documented as of this encounter
[2023-11-16] MEDS: 0.9 % SODIUM CHLORIDE 1000 ml 1,000 ML IV (20:15)
[2023-11-16 20:59] LABS: Chloride* 109 mmol/L (96-114); Sodium* 140 mmol/L (135-149)
[2023-11-16 21:00] VITALS: O2SAT 98
[2023-11-16 21:02] LABS: Creatinine* 0.6 mg/dL (0.5-1.5); Est. Creatinine Clearance* 37.11; Estimated Glomerular Filt Rate 92 ml/min
[2023-11-16 21:03] LABS: Anion Gap 7 mEq/L (7-15); Blood Urea Nitrogen* 18 mg/dL (7-30); Calcium* 9.1 mg/dL (8.4-10.6); Carbon Dioxide* 24 mmol/L (20-32); Glucose* 112 mg/dL (60-115)
[2023-11-16 21:07] LABS: Potassium* 2.7 mmol/L (3.6-5.1)
[2023-11-16 21:14] LABS: Magnesium* 1.8 mg/dL (1.5-2.6)
[2023-11-16 21:21] LABS: C Reactive Protein* 14.1 mg/dL (0.5-1.0)
[2023-11-16 21:23] LABS: Basophils Percent Auto 0.5 % (0.0-3.0); Eosinophils Percent Auto 0.5 % (0.0-7.0); Hematocrit 35.7 % (33.0-51.0); Hemoglobin* 10.6 gm/dL (12.0-16.0); Immature Granulocytes Pct Auto 0.3 %; Lymphocytes Percent Auto 6.7 % (20-44); Mean Corpuscular HGB Conc 30 gm/dL (32-36); Mean Corpuscular Hemoglobin 25 pg (26-34); Mean Corpuscular Volume 85 fL (80-100); Monocytes Percent Auto 8.2 % (0.0-11.0); Neutrophils Percent Auto 83.8 % (42.0-72.0); RDW Coefficient of Variation % 14.8 % (11.5-15.5); White Blood Count* 13.11 K/uL (4.50-11.00)
[2023-11-16] MEDS: POTASSIUM BICARB 25 MEQ EFFERVESCENT TAB 50 MEQ PO (21:23)
[2023-11-16 21:25] LABS: Platelet Count* 274 K/uL (140-440); Slide Review Reflex Yes
[2023-11-16 21:26] LABS: Slide Review Acceptable Review (Acceptable)
[2023-11-16] MEDS: POTASSIUM CHLORIDE 10 MEQ/100 ML PIGGYBACK 100 MEQ IVPB (21:29)
[2023-11-16 21:40] LABS: Erythrocyte SedimentationRate* 16 mm/hr (2-20)
--- NOTE | 2023-11-16 22:13 | CT_ITS ---
Patient: RONDA ENRIQUE Facility:?[facility] Patient ID:?[id number] Site Patient ID:?[id number]. Site :?[id number] Study:?CT-Abdomen/Pelvis W/54CC [id number]/17/2024 11:34:05 PM Ordering Physician:GONZALO Final Report: Indication: One week of diarrhea Technique: CT through the abdomen and pelvis following 54 mL Isovue 370 IV contrast Comparison: None Findings: Lower chest: No acute abnormality appreciated. Hepatobiliary: No significant parenchymal abnormality is appreciated. Spleen: Unremarkable. Pancreas: No acute abnormality appreciated. Adrenal glands: No acute abnormality appreciated. Kidneys: No significant parenchymal abnormality appreciated. No visualized calculi. No hydronephrosis. Bowel: No obstruction. Marked edema, wall thickening, and adjacent stranding involving the distal transverse colon, descending colon, sigmoid colon, and rectum. Vascular: No acute abnormality appreciated. Calcified atherosclerosis. Lymph nodes: No gross lymphadenopathy. Peritoneum: No free air. No free fluid. : No acute abnormality appreciated. Soft tissues: No acute abnormality appreciated. Bones: No acute fracture. No lytic or blastic lesion. Impression: Long segment colitis from the distal transverse colon to the rectum. Please note that all CT scans at this facility use dose modulation, iterative reconstruction, and/or weight-based dosing when appropriate to reduce radiation dose to as low as reasonably achievable. Dictated by Josse Layton MD @ 11/17/2023 12:28:30 AM Signed by:?Josse Layton MD @11/17/2023 12:28:30 AM (Electronic Signature)
[2023-11-16 22:33] LABS: Appearance Urine Clear (Clear); Bilirubin Urine Negative (Negative); Blood Urine 2+ (Negative); Color Urine Yellow (Yellow); Glucose Urine Negative (Negative); Ketones Urine Negative (Negative); Leukocyte Esterase Urine Negative (Negative); Nitrite Urine Negative (Negative); Protein Urine 2+ (Negative); Urobilinogen Urine 0.2 (0.2-1.0)
[2023-11-16 23:11] LABS: Bacteria Urine Moderate; WBC Urine 0-2 (0-5)
[2023-11-16 23:53] LABS: C.Difficile Negative (Negative); CDIFFEPI 027 PRESUMPTIVE NEGATIVE (Negative)
[2023-11-17 00:51] VITALS: BP 135/78; PULSE 84; RESP 16; TEMP 37; O2SAT 98
[2023-11-17] MEDS: DIPHENOXYLATE-ATROP 2.5-0.025 TABLET 1 TAB PO (00:51)
[2023-11-17 01:06] VITALS: BP 135/78; PULSE 84; RESP 16; TEMP 37
== END 2023-11-17 01:07 | disposition home or self-care (01) ==
PROVIDERS: Emergency Provider Family Medicine; PCP Emergency Medicine
DX: K52.9 Noninfective gastroenteritis and colitis, unspecified (principal); E87.6 Hypokalemia; R31.9 Hematuria, unspecified
CPT/HCPCS: 36415; 74177; 80048; 80076; 81001; 83735; 85025; 85651; 86140; 87086; 87186; 87493; 94761; 96365; 99284; 99285; A9270; J3480; J7030; Q9967